=== PATIENT | male | born 1975 | race Caucasian/White ===

== ENCOUNTER → 2017-08-25 | Outpatient (CLI) | payer OTHER ==
[2017-08-25 12:14] VITALS: RESP 20; TEMP 98.4
--- NOTE | 2017-08-25 12:51 | P.CONS ---
History of Present Illness - Reason for Consult Consult date: 08/25/17 - History of Present Illness This 42 years old male with a chronic history of severe low back pain started May 2016 after accident, and he started feeling severe low back pain with radiation to the right lower extremity associated with numbness and tingling sensation, he had MRI of the lumbar spine and it showed L4 5 disc protrusion and foraminal stenosis , and L5-S1 facet hypertrophy, and had lumbar discectomy surgery done in february 2017 , for the surgery he continued to have severe low back pain with numbness and tingling in the right lower extremity, intensity of the pain fluctuates between 3/10 with complete trace increased to 8/10 with any activity, denies any motor or sensory deficit he denies any fever or less with aneurysmal change in bowel movement or urination, he had done physical therapy without any benefit Past Medical History Past Medical History: Hypertension History of Any Multi-Drug Resistant Organisms: None Reported Past Surgical History: Orthopedic Surgery Additional Past Surgical History / Comment(s): surg on bulging disc L4L5 Past Anesthesia/Blood Transfusion Reactions: No Reported Reaction Smoking Status: Current every day smoker Past Alcohol Use History: Occasional Past Drug Use History: None Reported Medications and Allergies Allergies Allergy/AdvReac Type Severity Reaction Status Date / Time No Known Allergies Allergy Verified 08/25/17 11:57 Physical Exam Vitals: Vital Signs Temp Resp Pulse Ox 08/25/17 11:59 98.4 F 20 98 Social history : smoker , NO ETOH , NO Illegal drugs use Review of Systems : 1- Constitutional : no chills , no fever , no night sweats , 2- Ears : no ear discharge , no change in hearing 3-Nose, Mouth ,Throat ; no bleeding gums, no sore throat , no epistaxis , 4-Cardiovascular : Denies chest pain, , no orthopnea , no palpitation 5-Respiratory : Denies cough , no dyspnea , no hemoptysis 6-Gastrointestinal :, no change in bowel habits , no coffee- ground emesis . 7-Genitourinary : No hematuria , no discharge , no incontinence, 8-Musculoskeletal : No gait dysfunction , report low back pain , 9- Neurological : no ataxia , no tremor , no sezure , 10-Psychatric , no suicidal ideation no hallucination 11- Endocrine : no cold intolerence , no polyuria , no polydypsia , 12-Hematologic : no easy bleeding , no easy brusing , 13-Allergic / immunology : no angioedema , no wheezing ,no allergic rhinitis 14-Integumentary : no brttle nails , no change hair / nails , no foot/leg ulcers . Physical Examinations : 1-Constitutional : Cooperative , not in acute distress . 2-HEENT : nech ; supple , no Lymphadenopathy , no Thyromegaly , :eyes , no icterus, no photophobia . ENT : , normal oropharynx , no Thrush 3- Respiratory : Chest clear to auscultations Bilaterally , no wheezing . 4- Cardiovascular : regular rate and rhythem , S1 , S2 , no S3 , no S4. 5- Gastrointestinal: abdomen soft no tenderness , no organomegally . 6- Genitourinary : Defferred . 7-Integumentary : No cellulitis , no ulcers , normal skin turgor , no cyanotic . 8- neurologic : Cranial nerve II to XII intact , no focal neurological deffecit 9-psychatric : alert , oriented X 3 , appropriate affect , intact judgment and insight . 10-Lymphatic : no Lymphadenopathy. 11- musculoskeltal: Lumber spine moter stegnth lower extremities ,thigh and legs 5/5 Right side , 5/5 Left side deep tendon reflexes : normal Knee Jerk , normal ankle Jerk lumber facet Loading Test negative Range of motion of the lumbar spine Flexion 30 degrees, extension 10 degrees strait leg raising test negative Fabere test negative Results Comments: MRI of the lumbar spine done in October 2016= L4 5 lumbar disc protrusion and L5 -S1 lumbar facet hypertrophy Assessment and Plan Plan: Assessment and plan= Lumbar radiculopathy , failed back surgery syndrome and lumbar area Medication managements= patient will be given prescription refills for 1-patient should continue her Mobic 2-neurontin 300 tid 3-Palm 7.5/325 prescription's from the primary care Interventional pain management= patient could benefit from caudal epidural steroid injection with lysis of epidural adhesions be done under fluoroscopy guidance procedure risks and benefits and alternatives discussed with the patient and he agreed to the procedure , Time with Patient: Greater than 30
== END | disposition home or self-care (01) ==
LOC: PNWHC3 11:38
PROVIDERS: ATTEND Specialist
DX: I10 Essential (primary) hypertension (principal); F17.200 Nicotine dependence, unspecified, uncomplicated; M54.16 Radiculopathy, lumbar region
CPT/HCPCS: 99201

== ENCOUNTER 2017-11-08 08:54 | Day surgery (SDC) | payer OTHER ==
[2017-11-04 15:39] VITALS: BMI 37.3
[~2017-11-08 08:54] MED LIST: LACTATED RINGERS 1,000 ML IV ONE
[2017-11-08] MEDS ORDERED: LACTATED RINGERS 1,000 ML IV ONE (09:31)
[2017-11-08 09:35] VITALS: RESP 18; TEMP 97.5
[2017-11-08] MEDS ORDERED: LIDOCAINE 1% 20 ML VIAL (10MG/ML) FOR IV START INTRADERMA ONE (09:43)
--- NOTE | 2017-11-08 10:28 | P.PCN ---
Date of Procedure: 11/08/17 Procedure(s) Performed: PREOP DIAGNOSIS: 1- Lumbar postlaminectomy syndrome POSTOP DIAGNOSIS:1- Lumbar postlaminectomy syndrome PROCEDURE: Caudal epidural steroid injection with epidurolysis and epidurogram under fluoroscopic guidance ANESTHESIA: Local with 1% lidocaine 3 ml ; IV sedation with Versed 2 mg and fentanyl 200 g EBL: Minimal. PROCEDURE INDICATION: The patient with post-laminectomy syndrome with low back pain and radiculopathy radiating down in both legs, here for a caudal epidural steroid injection with epidurolysis. PROCEDURE DESCRIPTION: The patient was seen and identified in the preoperative area. Risks, benefits, complications, and alternatives were discussed with the patient. The patient agreed to proceed with the procedure and signed the consent. IV was started, and vital signs were stable. Patient was taken to the OR and time out was completed. The patient was placed in the prone position on procedure table and a pillow was placed under the abdomen to reduce lumbar lordosis. The lumbosacral area was prepped and draped in the usual sterile fashion. Vital signs were closely monitored during the procedure. lateral view and the anterior-posterior plates of the sacrum were identified with infiltration of the area overlying the sacral hiatus with 1% lidocaine .A 17 gauge RK epidural needle was used to advance through the sacral hiatus into the caudal epidural space. Omnipaque 180 dye. 2cc was injected and the position of the needle was verified to be in the midline. A Racz catheter was introduced into the epidural space and was advanced towards the L5-S1 interspace under direct fluoroscopic guidance. Multiple passes were made with the catheter for lysis of epidural adhesions.then dexamethasone 20 mg with 3ml of preservative free Lidocaine 1% and 5 ml of preservative free normal saline was injected slowly. Additional spread was seen to L4 under fluoroscopy. The needle and the catheter were withdrawn intact. EPIDUROGRAM: Omnipaque 180 mg dye 2 ml was injected with spread of the dye into the caudal epidural space and with spread cutoff at L5 prior to epidurolysis. Post epidurolysis dye 2 ml was injected and spread was seen to L3- 4.There was further spread of the solution together with the dye above the L3 COMPLICATIONS: None. DISPOSITION / PLANS: The patient was placed in a supine position and transferred to the recovery area in a stable condition for observation and was discharged from the recovery room after meeting discharge criteria. Home discharge instructions given to the patient by the staff. The patient was reexamined prior to discharge. The patient will schedule a follow up in the clinic in 2-4 weeks.
[2017-11-08] MEDS ORDERED: IV FLUID CONTINUATION 550 ML IV ONE (10:38)
[2017-11-08 11:23] VITALS: BP 126/89; PULSE 68
--- NOTE | 2017-11-08 12:00 | FL ---
Fluoroscopy HISTORY: Pain 6 seconds fluoroscopy time supplied to the referring clinician. 3 intraoperative C-arm images docume nt the procedure. See dictated report from anesthesia.
== END 2017-11-08 11:24 | disposition home or self-care (01) ==
LOC: ORPAIN 08:54
PROVIDERS: ATTEND Specialist
DX: G96.12 Meningeal adhesions (cerebral) (spinal) (principal); M96.1 Postlaminectomy syndrome, not elsewhere classified; M54.10 Radiculopathy, site unspecified; I10 Essential (primary) hypertension
CPT/HCPCS: 62264; J2250; J1100; Q9965; J3010; C1894; 99152

== ENCOUNTER 2017-12-07 08:31 | Day surgery (SDC) | payer OTHER ==
[2017-12-02 10:49] VITALS: BMI 38.0
[2017-12-07 08:59] VITALS: TEMP 97.7
[2017-12-07] MEDS ORDERED: LIDOCAINE 1% 20 ML VIAL (10MG/ML) FOR IV START INTRADERMA ONE (09:08)
--- NOTE | 2017-12-07 10:23 | P.PCN ---
Date of Procedure: 12/07/17 Procedure(s) Performed: PREOP DIAGNOSIS: 1- Lumbar postlaminectomy syndrome POSTOP DIAGNOSIS:1- Lumbar postlaminectomy syndrome PROCEDURE: Caudal epidural steroid injection with epidurolysis and epidurogram under fluoroscopic guidance ANESTHESIA: Local with 1% lidocaine 3 ml , and moderate sedation, with Versed 4 mg and fentanyl 100 g EBL: Minimal. PROCEDURE INDICATION: The patient with post-laminectomy syndrome with low back pain and radiculopathy radiating down in both legs, here for a caudal epidural steroid injection with epidurolysis. PROCEDURE DESCRIPTION: The patient was seen and identified in the preoperative area. Risks, benefits, complications, and alternatives were discussed with the patient. The patient agreed to proceed with the procedure and signed the consent. IV was started, and vital signs were stable. Patient was taken to the OR and time out was completed. The patient was placed in the prone position on procedure table and a pillow was placed under the abdomen to reduce lumbar lordosis. The lumbosacral area was prepped and draped in the usual sterile fashion. Vital signs were closely monitored during the procedure. lateral view and the anterior-posterior plates of the sacrum were identified with infiltration of the area overlying the sacral hiatus with 1% lidocaine .A 17 gauge RK epidural needle was used to advance through the sacral hiatus into the caudal epidural space. Omnipaque 180 dye. 2cc was injected and the position of the needle was verified to be in the midline. A Racz catheter was introduced into the epidural space and was advanced towards the L5-S1 interspace under direct fluoroscopic guidance. Multiple passes were made with the catheter for lysis of epidural adhesions. Kenalog 80 mg with 3ml of preservative free Lidocaine 1% and 5 ml of preservative free normal saline was injected slowly. Additional spread was seen to L4 under fluoroscopy. The needle and the catheter were withdrawn intact. EPIDUROGRAM: Omnipaque 180 mg dye 2 ml was injected with spread of the dye into the caudal epidural space and with spread cutoff at L5 prior to epidurolysis. Post epidurolysis dye 2 ml was injected and spread was seen to L3- 4.There was further spread of the solution together with the dye above the L3 COMPLICATIONS: None. DISPOSITION / PLANS: The patient was placed in a supine position and transferred to the recovery area in a stable condition for observation and was discharged from the recovery room after meeting discharge criteria. Home discharge instructions given to the patient by the staff. The patient was reexamined prior to discharge. The patient will schedule a follow up in the clinic in 2-4 weeks.
[2017-12-07] MEDS ORDERED: IV FLUID CONTINUATION 1,000 ML IV ONE ×2 (10:30)
[2017-12-07 10:47] VITALS: BP 142/91; PULSE 67; RESP 20
--- NOTE | 2017-12-07 10:47 | FL ---
Fluoroscopy HISTORY: Pain 8 seconds fluoroscopy time supplied to the referring clinician. 3 intraoperative C-arm images docume nt the procedure. See dictated report from anesthesia.
== END 2017-12-07 10:56 | disposition home or self-care (01) ==
LOC: ORPAIN 08:31
PROVIDERS: ATTEND Specialist
DX: M96.1 Postlaminectomy syndrome, not elsewhere classified (principal); G96.12 Meningeal adhesions (cerebral) (spinal)
CPT/HCPCS: 62264; J2250; J1100; Q9965; J3010; C1894; 99152

== ENCOUNTER → 2018-03-02 | Outpatient (CLI) | payer OTHER ==
[2018-03-02 13:24] VITALS: BP 133/91; PULSE 73; RESP 18
--- NOTE | 2018-03-02 13:39 | P.PN ---
Progress Note - Text Progress Note Date: 03/02/18 Patient returns for followup for chronic back pain with radiation to legs. Patient previously underwent caudal FARAZ x 3, which gave him relief for several months. Patient continues on [facility] medications for pain from PCP with good relief. Patient denies adverse drug effects from medications. Today, pt denies new-onset weakness, bowel/bladder incontinence, or any other signs or symptoms of cauda equina syndrome. There are no signs of acute intoxication, and no indications of medication diversion or overuse. In addition to above, 13-point review of systems is also negative for chest pain , shortness of breath, changes in vision, changes in hearing, new onset weakness , abdominal pain, diarrhea, extreme fatigue, malaise, fever, skin changes, homicidal or suicidal ideation, or bowel or bladder incontinence. Vital Signs: Reviewed in EMR Gen: WDWN, AAOx3, NAD HEENT: NCAT, EOMI, hearing grossly normal Pulm: resp unlabored Abd: soft, NT, ND Neck: supple, trachea midline ROM in flexion lumbar spine: reduced ROM in extension lumbar spine: reduced Lumbar paravertebral tenderness: + Facet loading: + L > R SI joint tenderness: + L > R Henok's test: neg Straight leg raise: +RLE at 10 degrees Imaging: Reviewed in EMR Assessment: 1. lumbar PLPS 2. SIJ dysfunction 3. chronic pain syndrome Plan: 1. Explanation: Opioid and psychological risk scores were reviewed. Diagnoses , prognoses, and multiple treatment options including but not limited to physical therapy, interventional therapies, adjuvant medical therapies, narcotic medication therapies, and surgery were discussed with the patient and all questions were answered to the patient's satisfaction. 2. Opioid agreement: no opioids prescribed today 3. Counseling: The patient was counseled extensively on SMOKING CESSATION, BODY MASS INDEX, EXERCISE. Specifically, the patient was instructed regarding the importance of smoking cessation, weight control, and exercise in the context of both chronic pain and overall health. 4. Procedures: caudal FARAZ with lysis of adhesions 5. Consultations: None 6. Investigations: UDS not done today, MAPS queried and appropriate 7. Medications: none prescribed 8. Morphine equivalents per day prescribed: zero 9. Disposition: f/u for procedure as scheduled. Patient also given SCS DVD ( [employer]). PQRS measures: 1-Patient's medications are documented in the chart. 2-Tobacco use is negative 3-Patient has not had a pneumococcal vaccine. 4-Advanced care planning discussed, patient unable to give. 5-Opioid contract NOT signed with the patient. 6-Pain positive, follow-up visit or procedure scheduled 7-Patient's blood pressure measured and documented, and patient will follow up with the primary care due to hypertension. 8-Patient's weight was measured, and body mass index ABOVE the normal limits, and counseling was done. Patient instructed to follow up with PCP. 9-Patient WAS NOT identified as an unhealthy alcohol user.
== END | disposition home or self-care (01) ==
LOC: PNWHC3 12:35
PROVIDERS: ATTEND Anesthesiology
DX: G89.4 Chronic pain syndrome (principal); G97.1 Other reaction to spinal and lumbar puncture; M53.88 Other specified dorsopathies, sacral and sacrococcygeal region; M54.9 Dorsalgia, unspecified; Z79.891 Long term (current) use of opiate analgesic
CPT/HCPCS: 99211

== ENCOUNTER 2018-03-09 06:18 | Day surgery (SDC) | payer OTHER ==
[2018-03-03 15:04] VITALS: BMI 38.0
[2018-03-09 06:39] VITALS: RESP 16; TEMP 98.2
[2018-03-09] MEDS ORDERED: LIDOCAINE 1% 20 ML VIAL (10MG/ML) FOR IV START INTRADERMA ONE (06:50)
[2018-03-09] MEDS ORDERED: LACTATED RINGERS 1,000 ML IV ONE (06:50)
--- NOTE | 2018-03-09 07:27 | P.PCN ---
Date of Procedure: 03/09/18 Postoperative Diagnosis: Procedure= caudal epidural steroid injection with lysis of epidural adhesions under fluoroscopy guidance. Preoperative diagnosis=1-failed back surgery syndrome lumbar area. 2 lumbar degenerative disc disease 3-lumbar radiculopathy Postoperative diagnosis= same Anesthesia= IV sedation with Versed and fentanyl , and local infiltration with lidocaine 1% 3 mL for skin and subcutaneous tissue infiltrations. Fluoroscopy time= 3 seconds Description of the procedure= procedure risk and benefits discussed with the patient, including but not limited to risk of infection and bleeding and ALLERGIC reaction to the medication and no complete pain relief discussed with the patient and he, she agreed with preceding. patient taken to the operating room, placed in prone position standard monitors applied, then after induction of anesthesia the lumbar and the caudal Area prepped with chlorhexidine X3 , then the under fluoroscopy guidance, local infiltration of the skin and subcu tissuel at the caudal hiatus area, then a 17-gauge Touhy needle advanced slowly under fluoroscopy and passed through the cauda hiatus and advanced to the epidural space, there was positive loss of resistance to normal saline, no heme, no paresthesia, no cerebrospinal fluid, then after negative aspiration Omnipaque 180 mg per mL and 3 mL injected that showed possible spread in the epidural space, no intrathecal spread, then 22 roney Racz catheter advanced slowly through the needle up to L 3-4 interlaminar space , and I was able to break the scar tissue by advancing and withdrawing the catheter multiple times ,and after all this done, mixture of lidocaine 1% 2 mL +10 mL of preservative-free normal saline +80 mg of depomedrol mixed together , and injected epidurally after negative aspiration patient tolerated the procedure well without any complication and patient will follow up with up in the pain clinic within 3 weeks. I gave the patient a prescription for physical therapy. He should complete this prior to scheduling his appointment for follow-up in the clinic. Surgeon: Messi Varghese
[2018-03-09] MEDS ORDERED: LACTATED RINGERS 1,000 ML IV SCH (07:30)
[2018-03-09] MEDS ORDERED: IV FLUID CONTINUATION 1,000 ML IV ONE ×2 (07:38)
[2018-03-09 08:01] VITALS: BP 140/80; PULSE 76
--- NOTE | 2018-03-09 08:26 | FL ---
Fluoroscopy HISTORY: Pain 3 seconds fluoroscopy time supplied to the referring clinician. 2 intraoperative C-arm images docume nt the procedure. See dictated report from anesthesia.
== END 2018-03-09 08:10 | disposition home or self-care (01) ==
LOC: ORPAIN 06:18
PROVIDERS: ATTEND Pain Medicine Pain Medicine
DX: M96.1 Postlaminectomy syndrome, not elsewhere classified (principal); M51.16 Intervertebral disc disorders with radiculopathy, lumbar region; I10 Essential (primary) hypertension
CPT/HCPCS: 62264; J2250; J1030; J3010; C1894; 99152

== ENCOUNTER → 2018-08-18 | Outpatient (CLI) | payer OTHER ==
--- NOTE | 2018-08-18 16:40 | XR ---
EXAMINATION TYPE: XR cervical spine comp DATE OF EXAM: 08/18/2018 COMPARISON: NONE HISTORY: Neck pain TECHNIQUE: 6 views FINDINGS: Cervical vertebra have mild straightening. There is minor spurring of the endplates anterio rly at C5-6. Posterior elements are intact. Neural foramina are fairly well-maintained. Atlantoaxial facet joint is normal. There are no cervical ribs. IMPRESSION: Mild spondylosis at C5-6. Otherwise negative exam.
== END | disposition home or self-care (01) ==
LOC: RADXRYALE 16:22
PROVIDERS: ATTEND Physician Assistant Medical
DX: M47.812 Spondylosis without myelopathy or radiculopathy, cervical region (principal)
CPT/HCPCS: 72050

== ENCOUNTER → 2020-08-08 | Outpatient (CLI) | payer BC | END | disposition home or self-care (01) | LOC: RADMRIMAIN 14:08 | PROVIDERS: ATTEND Orthopaedic Surgery | DX: Z53.9 Procedure and treatment not carried out, unspecified reason (principal) ==

== ENCOUNTER → 2020-09-04 | Outpatient (CLI) | payer BC ==
--- NOTE | 2020-09-04 15:54 | XR ---
EXAMINATION TYPE: XR chest 2V DATE OF EXAM: 09/04/2020 COMPARISON: NONE HISTORY: Preop TECHNIQUE: Frontal and lateral views of the chest are obtained. FINDINGS: There is no focal air space opacity, pleural effusion, or pneumothorax seen. The cardiac silhouette size is within normal limits. There is increased AP diameter of the chest. There is a spin al curvature. The osseous structures are intact. IMPRESSION: No acute cardiopulmonary process.
== END | disposition home or self-care (01) ==
LOC: RADXRYALE 10:14
PROVIDERS: ATTEND Physician Assistant Medical
DX: Z01.818 Encounter for other preprocedural examination (principal)
CPT/HCPCS: 71046

== ENCOUNTER → 2020-09-23 | Outpatient (CLI) | payer BC | END | disposition home or self-care (01) | LOC: LABPAT 10:07 | PROVIDERS: ATTEND Orthopaedic Surgery | DX: Z01.818 Encounter for other preprocedural examination (principal); M48.062 Spinal stenosis, lumbar region with neurogenic claudication | CPT/HCPCS: 87070 ==

== ENCOUNTER 2020-10-01 06:04 | Inpatient (IN) | payer BC ==
[2020-09-30 10:41] VITALS: BMI 42.3
[~2020-10-01 06:04] MED LIST changes: +ACETAMINOPHEN TAB 500 MG TAB PO PRN; +GABAPENTIN 300 MG CAP PO PRN; +HYDROmorphone 0.5 MG/0.5 ML SYRINGE IVP PRN; -LACTATED RINGERS 1,000 ML IV ONE; +LIDOCAINE 1% (10MG/ML) FOR IV START INTRADERMA PRN; +MIDAZOLAM 2 MG/2 ML VIAL IV PRN; +TRANEXAMIC ACID 1,000 MG in SODIUM CHLORIDE 0.9% 100 ML IVPB PRN; +ceFAZolin 3 GM in SODIUM CHLORIDE 0.9% 100 ML IVPB PRN
--- NOTE | 2020-10-01 06:41 | P.HPOR ---
History of Present Illness H&P Date: 10/01/20 Chief Complaint: Low back pain, LE weakness This 45 year old male presents with 4 years of low back pain. He notes pain that radiates into his right leg. Patient notes occasional tingling sensation into his feet along with into his left arm. He notes increased pain with prolonged weight bearing and sitting. He had a previous laminectomy and decompression ( laser surgery) 2017 In [place] without relief. he is very disappointed with this surgery and the amount of money spent on this surgery without any relief. He takes Bellevue 7.5/325mg four times daily along with Gabapentin and Meloxicam. he denies any perineal numbness or tingling. He denies any bowel or bladder incontinence. He denies weakness in his right lower extremity although he does state fairly intense radicular type pain that travels down the back and outside of his leg into his calf and foot. He has had recent injections into his back which have failed to give him any relief. He did state that one of the injections did work however he is unsure of where that injection was placed in relation to the other injections that he had. He states the physical therapy does not help his pain. And he has done several visits with this. He states that the meloxicam he takes seems to take the edge off but it does not help him and that is why he takes Bellevue 75/325 mg. Review of Systems 14 points review of systems completed and as stated in HPI, all other systems reviewed are negative. Past Medical History Past Medical History: Hypertension Additional Past Medical History / Comment(s): HERNIATED DISCS WITH BACK PAIN RADIATING DOWN RIGHT LEG. History of Any Multi-Drug Resistant Organisms: None Reported Past Surgical History: Back Surgery, Orthopedic Surgery Additional Past Surgical History / Comment(s): PAIN CLINIC PROCEDURES, JEMMA ROTATOR CUFF REPAIR Past Anesthesia/Blood Transfusion Reactions: No Reported Reaction Past Psychological History: No Psychological Hx Reported Past Alcohol Use History: Occasional Additional Past Alcohol Use History / Comment(s): SMOKES 1 PPD, SMOKING SINCE 13 YEARS OLD Past Drug Use History: None Reported - Past Family History Mother Family Medical History: No Reported History Medications and Allergies Home Medications Medication Instructions Recorded Confirmed Type Hydrocodone/Acetaminophen [[place]vue 1 tab PO BID 08/25/17 03/03/18 History 7.5-325] Propranolol/Hydrochlorothiazid 1 tab PO DAILY 08/25/17 03/03/18 History [Inderide 40-25 mg Tab] Citalopram Hydrobromide 40 mg PO DAILY 12/02/17 03/03/18 History [Citalopram HBr] Meloxicam 15 mg PO DAILY 12/07/17 03/03/18 History Sildenafil Citrate 1 tab PO DAILY 03/02/18 03/03/18 History amLODIPine BES/OLMESARTAN MED 1 tab PO DAILY 03/02/18 03/03/18 History [amLODIPine BES/OLMESARTAN MED 5-20 mg] Allergies Allergy/AdvReac Type Severity Reaction Status Date / Time No Known Allergies Allergy Verified 03/09/18 06:31 Physical Examination Osteopathic Statement: *. No significant issues noted on an osteopathic structural exam other than those noted in the History and Physical/Consult. General: Awake, alert, appropriate for age, in no acute distress. HEENT: No unusual neck masses around region of lateral neck triangle, thyroid, supraclavicular groove Heart: Regular rate and rhythm, normal S1, S2 and no murmur/gallop. Lungs: Clear to auscultation bilaterally with no use of accessory muscles. Extremities: Skin warm and dry without acute lesions, coloration, temperature, skin intact, no tenderness or erythema Integument: Hairy patches: Absent Dorsal skin dimples: Absent Cafe au lait spots: Absent Palpation: Please see Pain drawing on Intake sheet for further detail. Midline spinal tenderness: yes lumbar E6 Paralumbar tenderness: yes bilateral E6 Parathoracic tenderness: yes bilateral E6 Buttocks tenderness: yes bilateral E6 Special findings: none POSTURAL and MUSCULO-SKELETAL EVALUATION: Coronal Balance: Neutral Recumbent testing: Patient is able to lay flat on back Sagittal Balance: Neutral Shoulder Profile: level Pelvic Girdle: level Neck ROM: Unrestricted Lumbar ROM: pain with range of motion Shoulder ROM: Symmetric in abduction, ER/IR Hip ROM: Symmetric in abduction, adduction, ER/IR Knee ROM: Symmetric and intact in Flexion / extension Hands: normal Feet: normal VASCULAR STATUS : LEFT RIGHT Wrist Pulses intact intact Pedal Pulses (Dors. pedis & post.tibialis) intact intact Color normal normal Edema Absent Absent NEUROLOGIC EXAMINATION: Mental Status: Awake and alert, fully oriented, with normal attention, concentration and memory, and fluent, appropriate speech. Cranial Nerves: I: Olfactory not tested. II: Visual acuity normal, no visual field deficit noted with confrontation. III,IV: Normal pupillary reflexes & intact extraocular movements without nystagmus. V,: Intact symmetrical facial sensation. VII: Intact symmetrical facial motor movement VIII: Hearing intact. IX,X: swallow, & normal voice. XI: Sternocleidomastoid, trapezius function intact. XII: Tongue midline with normal movements. L'hermitte's Sign: Negative / absent Spurling'Sign: Absent bilaterally. Cubital percussion test: Absent bilaterally. Karolina-Tinel sign - Carpal region: Absent bilaterally. Straight Leg Raising: positive right lower extremity Crossed straight leg raise: negative O8 MOTOR EXAM (0-5/5, N/T) STRENGTH RIGHT LEFT Shoulder Abd (not part of the DONNY score) 5 5 Elbow Flexors 5 5 Elbow Extensor 5 5 Wrist Dorsiflexors 5 5 Finger Abductor 5 5 Traffic Maintenance Officer 5 5 Hip Flexor (Not part of DONNY Motor score) 5 5 Knee Flexor 5 5 Knee Extensor 5 5 Ankle dorsiflexor 4+ 4+ Ankle plantarflexion 4 5 Extensor hallucis 5 5 REFLEXES(0-4/2, NT) RIGHT LEFT Upper Extremities 2 2 Lower Extremities 2 2 Pathological Reflexes RIGHT LEFT Zavala's Absent Absent Clonus Absent Absent # Indicates mechanical impairment Muscle appearance: normal symmetrical Rectal Tone: not tested Sensory system (0-4, N/T) Test type RU BARI RL LL Joint-Position 2 2 2 2 Vibration 2 2 2 2 Pain & LT sense 2 2 2 2 Dermatomal Deficit: none none none none Gait and Functional Evaluation: Ambulatory aids: Independent Romberg's test: Intact bilaterally Toe heel walk / heel-toe walk intact while maintaining satisfactory balance? yes Squatting/straightening w/o assistance to a min of 60 degree knee flexion? yes Single leg stance: intact Hand and finger dexterity intact bilaterally? yes Disdiadochokinesis examination negative bilaterally? yes Results XRAY: AP lateral flexion-extension views of the lumbar spine are obtained and reviewed along with an AP pelvis in the office today. This demonstrates a maintained coronal and sagittal alignment with 49 of lumbar lordosis and 50 of pelvic incidence approximately. There are no fractures or dislocations noted. the patient does appear to have spondylosis throughout the lumbar spine that is worse at L34 and L5-S1. He does have facet arthropathy of L5-S1. AP pelvis demonstrates level pelvis congruent femoral acetabular joints and no acute fracture dislocation noted. MRI of the lumbar spine from 08/14/2020 reveals: Cointinued disc herniation with moderative to severe central stenosis of L4-5 and L5-S1 with thecal sac encroachment, b/l facet hypertrophy contributing to stenosis as well as disc degeneration. There are no fractures or dislocations noted. There are post surgical changes with R sided laminotomy of L4-5 from previous surgery done at [facility]. Assessment and Plan Assessment: 1. L4-5 , L5-S1 disc herniation with stenosis 2. S/P Laser spine decompression Plan: Buzz Mukherjee is a 45 yo male with history of laser spine surgery presenting for evaluation of LE weakness, severe radiculopathy which has been going on since his previous surgery and is now getting worse preventing him from doing daily activities and working. It was my pleasure to have seen and examined Buzz Mukherjee. In our visit today we have had a chance to go over subjective complaints, physical examination findings and treatments including the natural course history without intervention and various interventional options. His imaging d emonstrates L4-5 and L5-S1 HNP with stenosis. On physical exam, Buzz Mukherjee demonstrates Tensioning signs, weakness in his LE and severe radicuopathic pain. I explained to the patient that as her condition progresses it will cause further neurological deficits and eventual paralysis. Based on the patients imaging, physical exam, and the rapid progression and disabling nature of her symptoms, at this time I recommend surgery in the form or a: L4-S1 decompressive laminectomy. I discussed the risk and benefits of this procedure at length with Buzz Mukherjee. The patient and agreed to considered pursuing the procedure abovementioned. . Prior to surgery, she should follow up with her PCP (Cardio, ID, IM etc) for clearance. Questions were invited and answered, and the patient wishes to proceed as outlined below. Currently, I am recommendin. Lumbar 4 to Sacral 1 bilateral laminectomy and decompression 2. Follow up with PCP for surgical clearance 3. Review of surgical risks and benefits as well as an educational packet on the proposed surgical procedure. Risks: All surgical procedures come with inherent risks, including those related to positioning, anesthesia, intraoperative findings, and postoperative complications. It is important to understand that surgery does not come with any guarantee of a successful outcome as complications and adverse events are always possible. The patient was given a handout in office today discussing the surgical procedure and risks associated with the intervention, both of which were discussed with the patient. These risks include but are not limited to the following: ? Experiencing same, different or even worse symptoms in back, neck, arms, or legs compared to before surgery. ? Requiring further surgery or other forms of treatment presently or at some time in the future at same or other levels of the intended spine surgery. ? On an extreme but fortunately relatively rare basis severe complication such as blindness, stroke, heart attack, temporary and/or permanent nerve injury, paralysis, coma, or may occur, sometimes without known exp lanation. ? Surgical complications may include but are not limited to risk of infection, fluid accumulation in the surgical dissection site, including a seroma or hematoma, that requires additional surgery, wound drainage, bleeding, new numbness or weakness, vision changes/loss, spinal fluid leakage, non-healing and/or infected incision, headaches, difficulty or inability to swallow, hoarse ness, hemopneumothorax, pneumothorax, impotence, retrograde ejaculation, vaginal dryness; injury to nerves, spinal cord, blood vessels, lymphatics or other vital organs (i.e., bowel injury, injury to the great vessels); heterotopic bone formation; complications related to the hardware such as screws, rods, cages including misplaced hardware, device failure, instrumentation at the wrong spine level, hardware fracture/breakage, or hardware loosening; vertebral failure of the spinal column above or below the newly placed hardware; retained surgical instrumentations or devices and the need for further surgery. ? Medical risks of the planned spine surgery include but are not limited to generalized Infections to the whole body or local areas outside of the surgical site (sepsis), heart attack, bleeding, anaphylaxis, meningitis, seizure, epilepsy, hearing loss, burn pacheco, laceration of the head or other areas of the body, bruising, hypersensitivity of the skin, bladder over distension; allergic reaction; shoulder injury related to positioning; fat, blood and air clots to other areas of the body like heart, lungs, brain; failure of internal organs such as lungs, kidneys, liver and excessive bleeding. If blood transfusions are necessary, note that transfusions may cause intolerance reactions such as anaphylaxis or other complex reactions. Despite best efforts, the results of spine surgery might not heal in terms of bone, soft tissues such as skin, fascia, ligaments, and joints. Additionally, in order to achieve best possible results, spine surgery may be carried out b eyond the initially planned levels and involve decompression, fusion including insertion of hardware at levels other than the original intended area of surgical interest change some portions of the procedure in order to ensure the best possible outcomes. With spine surgery and spinal fusion, there are different off label uses of instrumentation (devices, implants and hardware) as well as biological substances (bone morphogenic proteins, demineralized bone matrix) as well as using extra bone from allograft sources (i.e. cadaver bone) or autograft (iliac crest bone, ribs, or the spine itself). The patient has been given information about these practices and their inherent risks and benefits. [facility] is an educational center that serves as a training facility for neurosurgical and orthopedic spine residents and fellows. Residents are physicians who are completing their surgical intensive training following medical school. They assist in the operating room with direct supervision of the attending surgeons. [place] are surgeons who have completed their training and eligible for board certification. They have opted for an elective year of more specialized training in their field. They assist in the operating room under the supervision of the attending surgeons. Physician assistants are medically trained surgical providers who function in the outpatient, inpatient, and operating room setting under the direct supervision of the attending surgeon. [facility] has multiple operating rooms with single and overlapping rooms running daily. They currently function under the required guidelines as produced by the [facility] Finance Committee with regards to the overlapping rooms and will continue to comply with changes to this policy as they occur. The requirements include and are complied with as follows: (1) the critical portions of the overlapping rooms will not occur at the same time, (2) the attending physician will be physically present during the critical portions of the procedure and immediately available during the entire case, and (3) a back-up attending is designated should the primary attending not be immediately available. The patient has had a chance to review all the listed information, has been given print outs detailing this information, and has had all his/her questions answered to their satisfaction. It was my pleasure to have seen and examined Buzz Mukherjee. In our visit today we have had a chance to go over my understanding of our patient's current condition, the natural course history without intervention and various interventional options. Questions were invited and answered, and the patient wishes to proceed as outlined above. I have seen and examined the patient for 25 minutes and we have spent more than 50% of the time in repeat and detailed counseling about the patient's condition, its natural course history with out and as much as can be predicted with surgery and re-review of various surgical treatment options. In conclusion, Buzz Mukherjee requested we proceed with the above suggested surgery and are willing to accept risks and limitations of the suggested surgery as nature of the disease process and our best attempts at treatment for the condition. Thank you again for allowing us to be part of your patient's care. Please don't hesitate to contact me if you have any further questions. Signed and authenticated by: Abdirizak French [facility] [address] [place] [address]
[2020-10-01] MEDS: LACTATED RINGERS 1,000 ML IV SCH ×2 (06:46→07:30)
[2020-10-01] MEDS: ONDANSETRON 4 MG/2 ML VIAL IVP ONE ×2 (06:53→15:49)
[2020-10-01] MEDS: DEXAMETHASONE SOD PHOSPHATE 4 MG/ML 1 ML VIAL IV ONE ×2 (07:06→15:49)
[2020-10-01] MEDS ORDERED: HYDROmorphone (PF) 1 MG/ML ONE (07:25)
[2020-10-01] MEDS ORDERED: SUCCINYLCHOLINE CHLORIDE VIAL 200 MG/10 ML VIAL IV ONE (07:25)
[2020-10-01] MEDS ORDERED: fentaNYL (PF) 50 MCG/ML 2 ML AMP ONE (07:25)
[2020-10-01] MEDS ORDERED: PROPOFOL 10 MG/ML 20 ML VIAL IV ONE (07:25)
[2020-10-01] MEDS ORDERED: SODIUM CHLORIDE 0.9% 100 ML BAG ONE (07:25)
[2020-10-01] MEDS ORDERED: PHENYLEPHRINE 10 MG/ML VIAL ONE (07:25)
[2020-10-01] MEDS ORDERED: TRANEXAMIC ACID 1,000 MG/10 ML VIAL ONE (07:25)
[2020-10-01] MEDS ORDERED: ROCURONIUM 10 MG/ML (10 ML VIAL) IV ONE (07:25)
[2020-10-01] MEDS ORDERED: ePHEDrine SULFATE/0.9% NACL/PF 50 MG/5 ML SYRINGE IV ONE (07:25)
[2020-10-01] MEDS ORDERED: NEOSTIGMINE 1 MG/ML 10 ML VIAL ONE (07:25)
[2020-10-01] MEDS ORDERED: NALOXONE 0.4 MG/ML 1 ML VIAL ONE (07:25)
[2020-10-01] MEDS ORDERED: MIDAZOLAM 2 MG/2 ML VIAL ONE (07:25)
[2020-10-01] MEDS ORDERED: GLYCOPYRROLATE 0.2 MG/ML 2 ML VIAL ONE (07:25)
[2020-10-01] MEDS ORDERED: GELATIN SPONGE,ABSORB (LARGE) 1 EACH SPONGE TOPICAL ONE (07:31)
[2020-10-01] MEDS ORDERED: THROMBIN (BOVINE) 5,000 UNIT VIAL TOPICAL ONE (07:31)
[2020-10-01] MEDS ORDERED: BUPIVACAINE (PF) 0.25% 30 ML VIAL SQ ONE (07:31)
[2020-10-01] MEDS ORDERED: LACTATED RINGERS 1,000 ML IV ONE ×4 (08:42→14:00)
[2020-10-01] MEDS ORDERED: methylPREDNISolone ACETATE 80 MG/ML 1 ML VIAL MISCELLANE ONE (10:13)
[2020-10-01] MEDS ORDERED: HYDROmorphone 1 MG/ML 1 ML SYRINGE IVP PRN (11:39)
[2020-10-01] MEDS ORDERED: ONDANSETRON 4 MG/2 ML VIAL IVP PRN (11:41)
[2020-10-01] MEDS ORDERED: SENNOSIDES 8.6 MG TAB PO PRN (11:41)
[2020-10-01] MEDS ORDERED: oxyCODONE-APAP 5-325MG 1 EACH TAB PO PRN (11:41)
[2020-10-01] MEDS ORDERED: ACETAMINOPHEN TAB 500 MG TAB PO PRN (11:41)
[2020-10-01] MEDS ORDERED: CYCLOBENZAPRINE 10 MG TAB PO PRN (11:44)
[2020-10-01] MEDS ORDERED: HYDROmorphone 0.5 MG/0.5 ML SYRINGE IVP ONE ×3 (12:25→14:15)
[2020-10-01] MEDS ORDERED: diphenhydrAMINE 50 MG/ML 1 ML VIAL IVP ONE (12:30)
[2020-10-01] MEDS ORDERED: KETOROLAC 15 MG/ML 1 ML VIAL IVP ONE (12:44)
[2020-10-01] MEDS ORDERED: fentaNYL (PF) 50 MCG/ML 2 ML AMP IVP ONE ×2 (12:50→13:28)
[2020-10-01] MEDS: ceFAZolin 3 GM in SODIUM CHLORIDE 0.9% 100 ML IVPB SCH ×2 (15:21→23:21)
[2020-10-01] MEDS: GABAPENTIN 300 MG CAP PO SCH ×2 (15:59→23:19)
[2020-10-01] MEDS: NICOTINE 14MG/24HR PATCH TRANSDERM SCH (15:59)
[2020-10-01] MEDS: 0.9% NACL WITH KCL 20 MEQ/L 1,000 ML IV SCH (17:56)
[2020-10-01] MEDS: KETOROLAC 15 MG/ML 1 ML VIAL IVP SCH ×2 (17:56→23:19)
[2020-10-01] MEDS: DOCUSATE 100 MG CAP PO SCH (20:08)
--- NOTE | 2020-10-01 23:21 | P.CONS ---
History of Present Illness - Reason for Consult Consult date: 10/01/20 Medical management - Chief Complaint Status post lumbar spinal laminectomy and decompression - History of Present Illness Patient is a 45-year-old male with a known history of hypertension, herniated lumbar disc, morbid obesity BMI 40.3 who has been having low back pain for the past 4 years. Recently patient has been having pain radiating down his right leg with occasional tingling sensation. Patient did have previous history of laminectomy and decompression in 2017 in [place] without much relief. Patient has been using pain medications and gabapentin without much relief. Patient had failed conservative measures including epidural injections. Patient was currently admitted to the hospital for L4-L5 lumbar laminectomy with decompression. Patient tolerated the procedure very well. Currently denied any complaints of chest pain or shortness breath. Complains of lower back pain today., Improving with pain medications. Blood pressure is in the lower side. MRI of the lumbar spine from 08/14/2020 reveals: Cointinued disc herniation with moderative to severe central stenosis of L4-5 and L5-S1 with thecal sac encroachment, b/l facet hypertrophy contributing to stenosis as well as disc degeneration. There are no fractures or dislocations noted. There are post surgical changes with R sided laminotomy of L4-5 from previous surgery done at [facility]. Review of Systems Constitutional: Patient denies any fever or chills . No generalized weakness or weight loss. Abdomen: Patient denied nausea vomiting and diarrhea and abdominal pain. Cardiovascular: Patient denies any chest pain or short of breath no palpitations. Respiratory: patient denied any cough or sputum production. No shortness of breath Neurologic: Patient denied any numbness or tingling headache. Musculoskeletal: Patient denies any complaints of joint swelling or deformity. lower back pain Skin: Negative Psychiatric: Negative Endocrine: No heat or cold intolerance. No recent weight gain. Genitourinary: No dysuria or hematuria. All other 14 point ROS negative except the above Past Medical History Past Medical History: Hypertension Additional Past Medical History / Comment(s): HERNIATED DISCS WITH BACK PAIN RADIATING DOWN RIGHT LEG. History of Any Multi-Drug Resistant Organisms: None Reported Past Surgical History: Back Surgery, Orthopedic Surgery Additional Past Surgical History / Comment(s): PAIN CLINIC PROCEDURES, JEMMA ROTATOR CUFF REPAIR Past Anesthesia/Blood Transfusion Reactions: No Reported Reaction Past Psychological History: No Psychological Hx Reported Past Alcohol Use History: Occasional Additional Past Alcohol Use History / Comment(s): SMOKES 1 PPD, SMOKING SINCE 13 YEARS OLD Past Drug Use History: None Reported - Past Family History Mother Family Medical History: No Reported History Medications and Allergies Home Medications Medication Instructions Recorded Confirmed Type Hydrocodone/Acetaminophen [[place] 1 tab PO Q6H PRN 08/25/17 10/01/20 History 7.5-325] Citalopram Hydrobromide 20 mg PO DAILY 12/02/17 10/01/20 History [Citalopram HBr] Meloxicam 15 mg PO DAILY 12/07/17 10/01/20 History Atenolol [Tenormin] 100 mg PO DAILY 09/30/20 10/01/20 History Cyclobenzaprine [Flexeril] 10 mg PO HS PRN 09/30/20 10/01/20 History Gabapentin [Neurontin] 300 - 600 mg PO DAILY 09/30/20 10/01/20 History Tadalafil [Cialis] 20 mg PO DIRECTED PRN 09/30/20 10/01/20 History amLODIPine [Norvasc] 5 mg PO DAILY 09/30/20 10/01/20 History hydroCHLOROthiazide [Hydrodiuril] 25 mg PO DAILY 09/30/20 10/01/20 History Allergies Allergy/AdvReac Type Severity Reaction Status Date / Time No Known Allergies Allergy Verified 10/01/20 06:28 Physical Exam Vitals: Vital Signs Temp Pulse Resp BP Pulse Ox 10/01/20 15:23 97.3 F L 62 16 135/87 98 10/01/20 14:35 56 L 17 113/66 98 10/01/20 14:15 57 L 18 144/67 100 10/01/20 13:45 55 L 16 143/67 99 10/01/20 13:15 61 18 143/66 98 10/01/20 13:00 64 18 143/88 99 10/01/20 12:45 59 L 18 149/85 97 10/01/20 12:30 66 18 126/79 99 10/01/20 12:15 65 18 117/62 100 10/01/20 12:04 97.5 F L 74 16 127/77 100 10/01/20 06:46 98.1 F 67 18 98 Intake and Output 10/01/20 10/01/20 10/01/20 06:59 14:59 22:59 Intake Total 3200 Output Total 500 Balance 2700 Intake: IV 3200 Output: Urine 300 Estimated Blood Loss 200 Other: Weight 130.7 kg PHYSICAL EXAMINATION: Patient is lying in the bed comfortably, no acute distress, awake alert and oriented.Morbidly obese. HEENT: Normocephalic. Neck is supple. Pupils reactive. Nostrils clear. Oral cavity is moist. Ears reveal no drainage. Neck reveals no JVD, carotid bruits, or thyromegaly. CHEST EXAMINATION: Trachea is central. Symmetrical expansion. Bibasilar diminished air entry.. Lung valentin clear to auscultation and percussion. CARDIAC: Normal S1, S2 with no gallops. No murmurs ABDOMEN: Soft. Bowel sounds normal. No organomegaly. No abdominal bruits. Extremities: reveal no edema. No clubbing or cyanosis, Lumbar spinal surgical site is bandaged. Neurologically awake, alert, oriented x3 with well-coordinated movements. No focal deficits noted Skin: No rash or skin lesions. Psychiatric: Coperative. Nonsuicidal Musculoskeletal: No joint swelling or deformity. Normal range of motion. Assessment and Plan Assessment: L4-L5, L5-S1 disc herniation with stenosis status post lumbar spinal decompression surgery. Postoperative day 0. Previous history of laminectomy and decompression. Hypertension. Currently blood pressure is not elevated Currently everyday smoker 1 pack/day Morbid obesity with BMI 41.3 DVT prophylaxis with SCDs Plan: Patient will be continued pain management, bowel regimen. Encourage incentive spirometry and ambulation. Blood pressure medications, hydrochlorothiazide and atenolol are on hold due to hypotension. Monitor CBC and BMP tomorrow. Smoking cessation has been counseled and patient was given nicotine patch. Follow-up closely and further recommendations based on the clinical course. will continue to follow with you. Thank you for your consult. Time with Patient: Greater than 30
[2020-10-02] MEDS: KETOROLAC 15 MG/ML 1 ML VIAL IVP SCH (06:01)
[2020-10-02] MEDS: 0.9% NACL WITH KCL 20 MEQ/L 1,000 ML IV SCH (06:04)
[2020-10-02 06:21] LABS: Basophils % (A) 0 %; Eosinophils % (A) 0 %; HCT 46.1 % (39.0-53.0); HGB 15.6 gm/dL (13.0-17.5); Lymphocytes # (A) 2.5 k/uL (1.0-4.8); Lymphocytes % (A) 17 %; MCH 31.6 pg (25.0-35.0); MCHC 33.8 g/dL (31.0-37.0); MCV 93.4 fL (80.0-100.0); Mean Platelet Volume 8.3; Monocytes # (A) 0.8 k/uL (0-1.0); Monocytes % (A) 6 %; Neutrophils # (A) 11.2 k/uL (1.3-7.7); Neutrophils % (A) 76 %; Platelet Count 224 k/uL (150-450); RBC 4.94 m/uL (4.30-5.90); RDW 13.4 % (11.5-15.5); WBC 14.8 k/uL (3.8-10.6)
[2020-10-02] MEDS: NICOTINE 14MG/24HR PATCH TRANSDERM SCH (08:10)
[2020-10-02] MEDS: DOCUSATE 100 MG CAP PO SCH (08:11)
[2020-10-02] MEDS: GABAPENTIN 300 MG CAP PO SCH (08:11)
[2020-10-02] MEDS: LACTATED RINGERS 1,000 ML IV SCH (08:12)
[2020-10-02 08:21] VITALS: BP 119/78; PULSE 64; RESP 18; TEMP 98.1
--- NOTE | 2020-10-02 08:45 | P.PN ---
Subjective Progress Note Date: 10/02/20 Principal diagnosis: L4-5 and L5-S1 HNP with stenosis s/p previous L4-5 laminotomy Patient seen and examined. He is doing fairly well however painful this morning and is difficult to control his pain due to his previous narcotic usage. Although the patient has not had pain medication since 1 AM and so he is getting them now. He is otherwise been up and about gone to the bathroom has no issues with any bowel or bladder or perineal problems. Patient states he wants to go home and is going to go today. Drains are putting out 15 and 70 since surgery. Objective - Vital Signs Vital signs: Vital Signs Temp 98.1 F 10/02/20 08:20 Pulse 64 10/02/20 08:20 Resp 18 10/02/20 08:20 BP 119/78 10/02/20 08:20 Pulse Ox 95 10/02/20 01:44 Intake & Output 10/01/20 10/02/20 10/02/20 18:59 06:59 18:59 Intake Total 3750 Output Total 675 340 Balance 3075 -340 Intake: IV 3750 Output: Drainage 140 Left Lower Back 80 Right Lower Back 60 Urine 475 200 Estimated Blood Loss 200 - Exam GEN: AOX3, NAD VSS Inspection: Appears well in some pain Palpation: Tenderness to palpation around the incision no fluctuance Motor: 5/5 shoulder abd/EF/EE/WF/intrinsics 5/5 DF/PF/EHL/FHL/HF/KE/KF Reflexes: 2/4 DTR all upper and LE Sensation intact to light touch in C5-T1 as well as L2-S1 distribution Zavala's: Negative bilaterally Clonus: . Negative Bilaterally Babinski: Negative bilaterally Incision: Clean dry and intact mesh tape in place no drainage Dressing: Lean dry and intact changed drains removed. Drain: 50, 70 - Labs CBC & Chem 7: 10/02/20 05:52 Labs: Abnormal Lab Results - Last 24 Hours (Table) 10/02/20 Range/Units 05:52 WBC 14.8 H (3.8-10.6) k/uL Neutrophils # 11.2 H (1.3-7.7) k/uL Assessment and Plan Assessment: 45-year-old male postoperative day 1 L4 5 and L5-S1 bilateral laminotomy facetectomy and foraminotomies with discectomy 1. L4-5 , L5-S1 disc herniation with stenosis 2. S/P Laser spine decompression Plan: -Appreciate medicine management. -Pain control: Continue with pain management protocol, make sure to stay on schedule -Aggressive ambulation protocol. OOB with all meals. OOB or in chair 4-5x daily. -PT/OT -TEDs, SCDs, mechanical ppx. OK for heparin today. Early ambulation is best. -GI ppx. -No further imaging needed at this time -Trend labs. -Dispo: Home today
[2020-10-02] MEDS ORDERED: polyethylene glycoL 3350 17 GM POWD.PACK PO SCH (09:00)
[2020-10-02] MEDS ORDERED: CITALOPRAM HYDROBROMIDE 20 MG TAB PO SCH (09:00)
[2020-10-02 09:52] LABS: African American GFR (CKD) 124.2 (60.0-200.0); Non-African American GFR(CKD) 107.1 (60.0-200.0); Potassium 4.8 mmol/L (3.5-5.5)
--- NOTE | 2020-10-02 11:42 | P.PN ---
Subjective Progress Note Date: 10/02/20 Patient is a 45-year-old male with a known history of hypertension, herniated lumbar disc, morbid obesity BMI 40.3 who has been having low back pain for the past 4 years. Recently patient has been having pain radiating down his right leg with occasional tingling sensation. Patient did have previous history of laminectomy and decompression in 2017 in [place] without much relief. Patient has been using pain medications and gabapentin without much relief. Patient had failed conservative measures including epidural injections. Patient was currently admitted to the hospital for L4-L5 lumbar laminectomy with decompression. Patient tolerated the procedure very well. Currently denied any complaints of chest pain or shortness breath. Complains of lower back pain today., Improving with pain medications. Blood pressure is in the lower side. MRI of the lumbar spine from 08/14/2020 reveals: Cointinued disc herniation with moderative to severe central stenosis of L4-5 and L5-S1 with thecal sac enc roachment, b/l facet hypertrophy contributing to stenosis as well as disc degeneration. There are no fractures or dislocations noted. There are post surgical changes with R sided laminotomy of L4-5 from previous surgery done at [facility]. 10/02/2020 Patient was seen and evaluated and follow-up status post L4-5 and L5-S1 bilateral laminotomy facetectomy and foraminotomies with discectomy with orthopedic surgery yesterday. Patient is currently sitting up at the side of the bed with no issues. Patient states he is tolerating diet with no reports of nausea or vomiting and is going to the bathroom with no difficulties. Patient has an incentive spirometer at the bedside and instructed him to continue using it 10 times every hour while awake even in home along with increasing activity as tolerated. Blood pressures on the low normal side and instructed the patient to continue to hold his blood pressure medications today and monitor blood pressure and may resume tomorrow. Instructed the patient to follow-up with primary care provider upon discharge. Patient states he is going home today and currently awaiting a ride. Review of systems: Constitutional: No reports of fatigue, fever, or chills Cardiovascular: No reports of chest pain or palpitations Respiratory: No reports of shortness of breath or cough GI: No reports of nausea, vomiting, or diarrhea : No reports of dysuria or retention Neurovascular: No reports of weakness or numbness All medications have been reviewed Objective - Vital Signs Vital signs: Vital Signs Temp 98.1 F 10/02/20 08:20 Pulse 64 10/02/20 08:20 Resp 18 10/02/20 08:20 BP 119/78 10/02/20 08:20 Pulse Ox 95 10/02/20 01:44 Intake & Output 10/01/20 10/02/20 10/02/20 18:59 06:59 18:59 Intake Total 3750 Output Total 675 340 Balance 3075 -340 Intake: IV 3750 Output: Drainage 140 Left Lower Back 80 Right Lower Back 60 Urine 475 200 Estimated Blood Loss 200 - Exam Patient is sitting up at the side of the bed comfortably, no acute distress, awake alert and oriented. Morbidly obese. HEENT: Normocephalic. Neck is supple. Pupils reactive. Nostrils clear. Oral cavity is moist. Ears reveal no drainage. Neck reveals no JVD, carotid bruits, or thyromegaly. CHEST EXAMINATION: Trachea is central. Symmetrical expansion. Bibasilar diminished air entry. Lung valentin clear to auscultation and percussion. CARDIAC: Normal S1, S2 with no gallops. No murmurs ABDOMEN: Soft. Bowel sounds normal. No organomegaly. No abdominal bruits. Extremities: reveal no edema. No clubbing or cyanosis, Lumbar spinal surgical site is bandaged. Neurologically awake, alert, oriented x3 with well-coordinated movements. No focal deficits noted Skin: No rash or skin lesions. Psychiatric: Cooperative. Non-suicidal Musculoskeletal: No joint swelling or deformity. Normal range of motion. - Labs CBC & Chem 7: 10/02/20 05:52 10/02/20 05:52 Labs: Abnormal Lab Results - Last 24 Hours (Table) 10/02/20 10/02/20 Range/Units 05:52 05:52 WBC 14.8 H (3.8-10.6) k/uL Neutrophils # 11.2 H (1.3-7.7) k/uL Glucose 113 H (70-110) mg/dL Assessment and Plan Assessment: L4-L5, L5-S1 disc herniation with stenosis status post lumbar spinal decompression surgery. Postoperative day 1. Previous history of laminectomy and decompression. Hypertension. Currently blood pressure is not elevated Currently everyday smoker 1 pack/day Morbid obesity with BMI 41.3 DVT prophylaxis with SCDs Plan: Patient will be continued pain management, bowel regimen. Discussed with the patient about continuing to use incentive spirometer at least 10 times every hour while awake even in the home setting along with increasing activity as tolerated. Blood pressure medications, hydrochlorothiazide and atenolol are on hold due to postoperative hypotension and blood pressures continue to be on the lower side and instructed patient to hold blood pressure medications today and monitor blood pressure in the outpatient setting and may resume tomorrow. Labs within normal limits. Patient instructed to follow-up with primary care melissa mejía upon discharge. Smoking cessation has been counseled. Follow-up closely and further recommendations based on the clinical course. will continue to follow with you. Patient states he is being discharged today. Thank you for this consult and will continue follow along with you during hospi talization.
--- NOTE | 2020-10-03 08:14 | P.DS ---
Providers Date of admission: 10/01/20 06:04 Expected date of discharge: 10/02/20 Attending physician: Abdirizak Jama DO Consults: 10/01/20 11:39 Consult Physician Routine Consulting Provider: Alpesh Cisse Consult Reason/Comments: Medical Management Do you want consulting provider notified?: Yes Primary care physician: Clara Barton Hospital Course: Spine Surgery Discharge Summary Note Admission Date: 10/01/2020 Discharge Date: 10/02/2020 Providers: Tanna Jama Principal Diagnosis: [L4 5 and L5-S1 stenosis with herniated nucleus pulposus] Procedures: L4 5 and L5-S1 bilateral laminotomy medial facetectomy foraminotomy and discectomy Secondary Diagnoses: Hypertension, obesity, nicotine use, Discharge Medications: [See list] Allergies: NO KNOWN DRUG ALLERGIES Hospital Course: The patient was evaluated preoperatively and found to have the diagnosis of stenosis L4 5 and L5-S1 with herniated nucleus pulposus and disc osteophyte complex. They underwent appropriate preoperative care and were willing to undergo the intended procedure. They underwent a successful L4 5 and L5-S1 bilateral laminotomy foraminotomies facetectomy and discectomy, were recovered appropriately and sent to the floor. While on the floor they worked with physical therapy, occupational therapy and nursing to enhance their recovery experience. Their pain was well controlled through their stay and they were started on appropriate medications, DVT ppx modalities, activity and dietary needs. Daily labs were monitored closely, and transfusions were only used when necessary. Medicine as well as other consulting services have made their input and have helped with our team approach and multidisciplinary care. PT milestones have been met and passed and they have made the recommendation of home for this patient and treating providers agree with this care path. The patient will be discharged home with appropriate medications, instructions and follow-up information and in stable condition. Plan - Discharge Summary Discharge Rx Participant: Yes New Discharge Prescriptions: New Docusate [Colace] 100 mg PO DAILY PRN #20 capsule PRN Reason: Constipation Cyclobenzaprine [Flexeril] 10 mg PO TID PRN #40 tab PRN Reason: Spasms Gabapentin 300 mg PO TID #90 cap Ibuprofen [Motrin] 800 mg PO Q8H PRN #90 tab PRN Reason: Mild Pain oxyCODONE-APAP 10-325MG [Percocet 10-325 mg] 1 - 2 tab PO Q4HR PRN 7 Days #56 tab PRN Reason: Severe Pain Sennosides/Docusate Sodium [Senna Plus 8.6-50 mg Softgel] 1 each PO BID PRN #20 capsule PRN Reason: Constipation No Action Hydrocodone/Acetaminophen [[place] 7.5-325] 1 tab PO Q6H PRN PRN Reason: Pain Citalopram Hydrobromide [Citalopram HBr] 20 mg PO DAILY Meloxicam 15 mg PO DAILY Gabapentin [Neurontin] 300 - 600 mg PO DAILY Atenolol [Tenormin] 100 mg PO DAILY hydroCHLOROthiazide [Hydrodiuril] 25 mg PO DAILY amLODIPine [Norvasc] 5 mg PO DAILY Cyclobenzaprine [Flexeril] 10 mg PO HS PRN PRN Reason: Muscle Spasm Tadalafil [Cialis] 20 mg PO DIRECTED PRN PRN Reason: erectile dysfunction Discharge Medication List Hydrocodone/Acetaminophen [[place] 7.5-325] 1 tab PO Q6H PRN 08/25/17 [History] Citalopram Hydrobromide [Citalopram HBr] 20 mg PO DAILY 12/02/17 [History] Meloxicam 15 mg PO DAILY 12/07/17 [History] Atenolol [Tenormin] 100 mg PO DAILY 09/30/20 [History] Cyclobenzaprine [Flexeril] 10 mg PO HS PRN 09/30/20 [History] Gabapentin [Neurontin] 300 - 600 mg PO DAILY 09/30/20 [History] Tadalafil [Cialis] 20 mg PO DIRECTED PRN 09/30/20 [History] amLODIPine [Norvasc] 5 mg PO DAILY 09/30/20 [History] hydroCHLOROthiazide [Hydrodiuril] 25 mg PO DAILY 09/30/20 [History] Cyclobenzaprine [Flexeril] 10 mg PO TID PRN #40 tab 10/02/20 [Rx] Docusate [Colace] 100 mg PO DAILY PRN #20 capsule 10/02/20 [Rx] Gabapentin 300 mg PO TID #90 cap 10/02/20 [Rx] Ibuprofen [Motrin] 800 mg PO Q8H PRN #90 tab 10/02/20 [Rx] Sennosides/Docusate Sodium [Senna Plus 8.6-50 mg Softgel] 1 each PO BID PRN #20 capsule 10/02/20 [Rx] oxyCODONE-APAP 10-325MG [Percocet 10-325 mg] 1 - 2 tab PO Q4HR PRN 7 Days #56 tab 10/02/20 [Rx] Activity/Diet/Wound Care/Special Instructions: Spine Discharge and Recovery Instructions Date of Surgery: 10/01/2020 Diagnosis: Stenosis with disc herniation L4 5 and L5-S1 with neurogenic claudication Procedure: L4 5 and L5-S1 decompressive laminectomy with discectomy Medications: See list All medication refills should be obtained through your primary care doctor or your clinic spine surgeon. Please discuss prescription refills at your follow up appointment. Do not call the hospital for medication refills. Dressing: Leave your dressing in place for a total of 3 days post operatively. Then you may remove your dressing and leave open to air. Keep the area clean and if not able to keep area clean, then cover with sterile gauze and tape. Showering: You may shower 3 days after your procedure allowing soap and water to run over incision. Do not scrub. Do not soak. Blot dry. Follow up: Please confirm a follow up appointment with your surgeon 2 weeks post operatively. Please make an appointment to follow up with your PCP in 1-2 weeks after surgery for evaluation 3 phase, 3-week plan POST OP WEEKS 1-3 1. Lifting/carrying/pushing/pulling limited to less than 5 pounds. 2. Do not sit for longer than 15 minutes at one time. Get up and walk around. Prolonged sitting is NOT advised. If you lay down, see if you can tolerate laying down on you front (belly side) 3. Walk for periods of 15 minutes = 1 mile but no longer; do it multiple times times each day. 4.Ice your low back after activity. POST OP WEEKS 3-6 1. Lifting limited to less than 20 pounds. 2. Do not sit for longer than 30 minutes at a time. Frequently change positions. Use a sit-to stand workstation or take frequent breaks from sitting if you have returned to work. 3. Walk for 30 minutes each day. If possible, do these three or more times a day POST OP WEEKS 6+ At your 6-week appointment we will give you a physical therapy referral to focus on a core stabilization and strengthening program. You should also work on leg & buttock strengthening, hamstring & quadriceps stretching, and continue a low impact aerobic activity program such as swimming, walking, or riding a stationary bicycle. During the initial 6 weeks after your surgery, you are at the highest risk of re-injuring your spine. You should generally avoid BLTs (bending, lifting and twisting combination motions) and follow the above guidelines to reduce the chance of reinjury. You can anticipate post op appointments in our office at approximately 3 weeks and 6 weeks after your surgery. INCISION CARE: If your incision is not draining you do NOT need to cover it with a dressing. Keep your incision clean, dry and intact. In most cases, we apply skin glue, jeff or sutures to the incision at the time of surgery. This will be like a crust or have the appearance of a scab and will fall off in time on its own. The stitches or jeff need to be removed at 3 weeks post op appointment. You may begin to shower 3 days after surgery (this allows the glue to montero well). However, please avoid scrubbing the incision site or peeling off any of the skin glue. This will ensure optimal healing of your incision. Also, during this time avoid soaking the incision area in water - this includes swimming pools, hot tubs or baths. No ointments, lotions or oils on the incision until your surgeon allows. Leave jeff, sutures or glue in place. Neurological dysfunction that comes on suddenly can also be a sign of a stroke. Below some common symptoms of a stroke are listed: B - balance difficulty such as sudden onset walking or leaning to one side - NEW E - eye problem such as sudden double vision or trouble seeing on one side - NEW F - Facial weakness or numbness on one side - NEW A - Arm or leg weakness or numbness on one side - NEW S - Slurred speech or difficulty with word finding - NEW T - Time is BRAIN! Call 911 as soon as you recognize these symptoms Diet: Consume a regular diet rich in vegetables and lean protein such as chicken or fish. You should consume in a ratio of approximately 20% fats|40% carbohydrates|40%protein. Vegetables, sweet potatoes, brown rice or quinoa are examples of good carbohydrates. Chips, white bread, cookies and sweets/sugar are examples of bad carbohydrates. Limit your bad carbs, go wild with good carbs. "Life's Simple 7" Guidelines as per [place] [employer] These will help you reclaim your life after surgery and cupola tender helper in your recovery, keeping in mind your restrictions. (1) Get Active. Physical activity can help people lose weight, control high blood pressure and cholesterol, feel emotionally better, and sleep better. (2) Control Cholesterol. Avoid a diet high in saturated fat, trans fat, & cholesterol. Limit whole milk & cream, ice cream, butter, egg yolks, processed meats (like sausage and hot dogs), and fatty meats. Choose healthy foods that are low in saturated fat, trans fat and cholesterol which include: Fruits and vegetables, fiber rich grain products (like whole grain pasta and brown rice), lean meat such as chicken, fish, nuts, seeds, and legumes. (3) Eat Better. Eat small portions. Shop at the grocery with a list and do not stray from it. Tips for a healthy diet include: Limit sodium intake to less than 1500mg daily, avoid prepackaged, processed, and fast foods, choose a diet rich in fruits, vegetables, and whole grain, high fiber foods, and limit saturated & cholesterol in your diet. (4) Manage Blood Pressure. If you have high blood pressure, you should have a cuff at home so that you can check your blood pressure regularly. Be sure you have a good cuff. An arm one is generally better than a wrist one. Bring the cuff to a doctor's appointment to validate that the measurements that your cuff are taking are accurate. Take your blood pressure twice daily when you are sitting down and relaxing. Record the numbers in a log and bring this log with you to your doctors' appointments. (5) Lose Weight if your BMI is above 25. A healthy BMI is between 19-25. To calculate Your BMI, you may use a Standard BMI Calculator on the NIH BMI website : <www.nhlbi.nih.gov/guidelines/obesity/BMI/bmicalc.htm>. Weigh oneself daily. If you are overweight, set a goal to lose weight. A pound a week loss if needed is a good target. (6) Reduce Blood Sugar. Limit foods and liquids with "added sugars." (Added sugars include sucrose, fructose, glucose, maltose, dextrose, high fructose corn syrup, corn syrup, concentrated fruit juice and honey). (7) Stop Smoking. If you smoke, quitting smoking is one of the best things that you can do for your health. Smoking increases your risk of heart attack, stroke, and peripheral vascular disease, which is a build-up of plaque in your arteries. Please discard all the cigarettes and lighters in your house. Have a plan for what you will do when you have the urge to smoke. Direct and second- hand smoke shortens your life as well as the lives of your family, friends and others around you. For your health and the health of those around you, please consider quitting! Proper Bending Body Mechanics: Maintain a wide stance with one foot slightly in front of the other. Keep your back straight. Bend utilizing the strength in your hips and knees. Do not bend at the waist. Maintain the lifted object at your waist-level close to your body. Avoid lifting weight that causes immediately pain or pain anywhere in the body afterwards. Smoking/Nicotine If there was ever one thing that you could do to increase your overall health, decrease your risk of cardiovascular problems by about 39% the second you make the choice, it is to STOP SMOKING. Your body's most instant gratification is the second you stop smoking. We have all heard the studies, read the articles but it is true, smoking is extremely bad for your overall health, and moreover it is detrimental to your bone health. Nicotine, IN ANY FORM, kills bone cells, prevents your body from healing fractures, and significantly prolongs healing after surgery. In spine surgery specifically, it increases your risk of not healing your bones to create a fusion and increases your risk of having a revision surgery due to this up to 60%. I know it is hard. I know it feels impossible. But there are ways. Take control of your life. We are here to help you through it. And when you are ready, ask us and we can direct you to help if you desire. Use the START Plan to Quit Smoking (please visit the Helpguide.org website listed below for more information): S = Set a quit date. Choose a date within the next 2 weeks, so you have enough time to prepare without losing your motivation to quit. If you mainly smoke at work, quit on the weekend, so you have a few days to adjust to the change. T = Tell family, friends, and co-workers that you plan to quit. Let your friends and family in on your plan to quit smoking and tell them you need their support and encouragement to stop. Look for a quit martha who wants to stop smoking as well. You can help each other get through the rough times. A = Anticipate and plan for the challenges you'll face while quitting. Most people who begin smoking again do so within the first 3 months. You can help yourself make it through by preparing ahead for common challenges, such as nicotine withdrawal and cigarette cravings. R = Remove cigarettes and other tobacco products from your home, car, and work. Throw away all your cigarettes (no emergency pack!), lighters, ashtrays, and matches. Wash your clothes and freshen up anything that smells like smoke. Shampoo your car, clean your drapes and carpet, and steam your furniture. T = Talk to your doctor about getting help to quit. Your doctor can prescribe medication to help with withdrawal and suggest other alternatives. If you can't see a doctor, you can get many products over the counter at your local pharmacy or grocery store, including the nicotine patch, nicotine lozenges, and nicotine gum. Resources for Quitting Smoking: <https://www.[place].gov/documents/api healthcare/Quit_Tobacco_Resources_for_patients_313 480_7.pdf> Supplementation: Take recommended dosages of Vitamin D and Calcium to help fortify your bones and help them to heal. See your health maintenance packet for dosages and recommended levels. DVT/VTE prophylaxis: You will be given compression stockings from the hospital. Wear these daily for the first two weeks after surgery. You may take them off at night. You may be prescribed a medication to help thin your blood. Take this as directed. If you are not prescribed this medication, early and frequent ambulation has been shown to be the best prophylaxis to deep vein thrombosis and sequelae related to this event. Discharge Disposition: HOME WITH HOME HEALTH SERVICES
--- NOTE | 2020-10-03 08:19 | P.OP ---
Date of Procedure: 10/01/20 Preoperative Diagnosis: 1. L4-5 stenosis with recurrent disc herniation 2. L5-S1 Stenosis 3. RLE weakness 4. Neurogenic Claudication Postoperative Diagnosis: 1. L4-5 stenosis with recurrent disc herniation 2. L5-S1 Stenosis 3. RLE weakness 4. Neurogenic Claudication 5. S/p laser spine decompression L4-5 R Procedure(s) Performed: 1. Exploration of decompression L4-5 2. Revision decompression L4-5 with bilateral foraminotomy, medial facetectomy, foraminotomy 3. L4-5 microdiscectomy 4. L5-S1 RIGHT sided laminotomy, medial facetectomy and foraminotomy with microdiscectomy 5. Use of intraoperative microscope Implants: None Anesthesia: GETA Surgeon: Abdirizak Jama (HERNANDEZ Lopez was present for the entire case and was necessary due to the complexity of the case) Estimated Blood Loss (ml): 200 IV fluids (ml): 3,000 Urine output (ml): 200 Pathology: none sent Condition: stable Disposition: PACU Indications for Procedure: This 45 year old male presents with 4 years of low back pain. He notes pain that radiates into his right leg. Patient notes occasional tingling sensation into his feet along with into his left arm. He notes increased pain with prolonged weight bearing and sitting. He had a previous laminectomy and decompression ( laser surgery) 2017 In [place] without relief. he is very disappointed with this surgery and the amount of money spent on this surgery without any relief. He takes Jackson 7.5/325mg four times daily along with Gabapentin and Meloxicam. he denies any perineal numbness or tingling. He denies any bowel or bladder incontinence. He denies weakness in his right lower extremity although he does state fairly intense radicular type pain that travels down the back and outside of his leg into his calf and foot. He has had recent injections into his back w hich have failed to give him any relief. He did state that one of the injections did work however he is unsure of where that injection was placed in relation to the other injections that he had. He states the physical therapy does not help his pain. And he has done several visits with this. He states that the meloxicam he takes seems to take the edge off but it does not help him and that is why he takes Jackson 75/325 mg. Operative Findings: Severe stenosis with disc osteophyte complex at L4 5 with disc herniation on the right at L5-S1. Severe ligamental hypertrophy with epidural lipomatosis L5-S1 and L4 5 Post laminotomy scar right hand side L4 5 Description of Procedure: The patient was seen and examined in the preoperative area. All preoperative protocols were followed. Informed consent was obtained risks and benefits of the procedure were discussed at length. Risks including bleeding infection damage to the surrounding tissue and risk of reoperation were discussed with the patient. Risk of anesthesia up to and including was a discussed with the patient. These are outlined in the risk review. They were willing to accept these risks and all of the risks of surgery. The patient was given a weight- based dose of antibiotics in the form of 3 g Ancef IVPB 1. The patient was seen and evaluated by the anesthesia team who deemed them fit for surgery. The site was marked, the patient was willing to proceed with the procedure. The patient was transferred to the operative suite by the Department of anesthesia. They were then drifted off to sleep by the department anesthesia Gen. endotracheal intubation. The patient tolerated this well. Dudley catheter was placed by nursing staff, atraumatically and will be removed once the cases over. Once confirmation of lines and ventilation the patient was transferred to a a prone Arthur Jameel table very carefully. All bony prominences including wrists, elbows, axilla, chest, hips, and thighs, and feet were padded very well. Special attention was paid to the genitalia and these were padded accordingly. SCDs were placed on bilateral lower extremities and were connected. Arms were well padded and placed on arm boards up and out in the 90/90 position. Once in position, again we confirmed good ventilation capabilities and that lines were running appropriately. The patient's lumbar spine was then exposed. 1010s were placed outlining the incision site. Standard alcohol was used to clean the incision site and allowed to dry. C-arm was used to biomark the patient and confirm level for incision which was marked with a skin marker. Operative briefing was performed with all teams and everyone in agreement to proceed. The patient was then prepped and draped in a normal sterile fashion. Timeout was then performed and all parties were in agreement with the procedure to be performed. The area which was previously by Sandro was then infiltrated with quarter percent Marcaine without epinephrine bilaterally. Skin incision was then made on the previous by marked area midline and taken down to the subcutaneous tissue. Electrocautery dissection was then used for meticulous hemostasis and to expose the lumbosacral fascia. Once this was encountered a Leal was used to clean it in its entirety. Bilateral midline sparing fasciotomy was then made over the L4 5 and L5-S1 region which was fused by December. Scar was encountered in this area due to the patient's previous right-sided hemilaminotomy at L4 5. Subperiosteal dissection was taken down over the L4 lamina to expose the L4 pars as well as lamina. The L5 pars and lamina were then identified as well as the S1. This was done bilaterally. Scar tissue was removed meticulously and carefully with a Leal and electrocautery dissection. Meticulous hemostasis ensued. A lateral x- ray with a Raleigh 4 placed at the L4 pars was then taken to identify the L4 5 disc space which was confirmed. High-speed bur was then used to make a left- sided unilateral hemilaminotomy and medial facetectomy and foraminotomy of the left handed L4 5 region. The ligamentum flavum was removed in this area which was extremely high tourniquet hypertrophied and scarred medially. The dural sac as well as the exiting nerve root and traversing nerve root were then mobilized. Posteriorly there was a disc osteophyte complex which could be palpated and seen in this area and so an osteotome was used to access the disc space. This was done under lateral fluoroscopy as well. A 20 down-biting curet was then us ed to tamp the osteophyte and disc osteophyte complex anteriorly into the disc space. Any free-floating pieces were then removed with a micropituitary. This large disc osteophyte complex was felt and palpated medially as well and so a 20 shagufta biter as well as a Elizabeth were used to free the anterior portion of the dura and then the down biter was used again to impact this into the disc space. Pituitary was again used to remove any loose pieces. The patient's disc space was somewhat vacuous however he was stable. Attention was then drawn to the right hand side previous laminotomy section. High-speed bur was used to widen the laminotomy. 2-0 up biter curette was used to remove the scar tissue from this area and a Raleigh 4 used to mobilize the dural tissue. Once dural tissue was freed the disc space was entered on this side as well which allowed for complete decompression of the nerve roots in this area. A Raleigh 4 with bone wax was then placed into this bilateral laminotomy medial facetectomy and foraminotomies section to allow for meticulous hemostasis a Raleigh [address] this. A Elizabeth was then used to confirm good decompression anterior the thecal sac. A Trevino probe was used to confirm good foraminotomies. FloSeal was then placed in these areas as well as patties to allow for hemostasis. Attention was then drawn to the right side at L5-S1 region where high-speed bur was used to make a unilateral laminotomy medial facetectomy and foraminotomies in this area. Kerrisons were used to widen this foraminotomy deep. The facet joints remained intact other than the medial facetectomy performed. There was exquisite ligamentum hypertrophy in this area and the ligamentum was then removed. Upon removal there was a high amount of epidural lipomatosis which is noted in this area. The nerve root on this side was then mobilized using a Raleigh 4 in the disc space visualized. There is a disc herniation which was visible in this area as well. A 15 blade was used to cut the annulus and allowed for decompression of the disc and this level. A 2-0 down biter was used to push disc material anteriorly back into the disc space and a pituitary used to remove any loose fragments. The thecal sac was confirmed to be decompressed in this area. Trevino ball probe was then used to palpate the foramen which were patent and open. FloSeal and patties were used for meticulous hemostasis once again and then 3 L of normal sterile saline were used for irrigation followed by Irricept followed by 1 L of normal sterile saline irrigation and the wound. The patties were removed meticulous hemostasis ensued and inspection showed good decompression in both areas. 80 mg of Kenalog was then split between these laminotomy sites and placed. Surgicel was placed over the dura. A deep drain was then placed on the right-hand side of the patient deep to the fascia and sewed into place. The lumbosacral fascia was then closed with #1 Vicryl in a simple fashion followed by a running strata fix suture. Subcutaneous drain was then placed on the left-hand side of the patient and sewed into place a layered fascial closure of the Marck's and Camper's fa scia using 0 PDS was then performed followed by a subcutaneous closure with 0 PDS and 2-0 PDS. Subcuticular closure was performed with a 3-0 Monocryl. The wound was then cleaned and sterilely dressed with excess and tape Telfa 4 x 4's and Tegaderms. The patient was transferred back to his hospital bed atraumatically. Drain continued to hold suction and were in good position. The Dudley was removed. Patient was then awakened and extubated by the department of anesthesia having tolerated the procedure very well with no complications. He was transferred to the postoperative care unit in stable condition.
== END 2020-10-02 11:15 | disposition home or self-care (01) | DRG 519 ==
LOC: 2ORMAIN 06:04 → 5NMEDONC 14:32
PROVIDERS: ADMIT Orthopaedic Surgery; ATTEND Orthopaedic Surgery
PROC: 01NB0ZZ Release Lumbar Nerve, Open Approach (ICD-10-PCS; principal; 2020-10-01 07:30)
PROC: 0SB20ZZ Excision of Lumbar Vertebral Disc, Open Approach (ICD-10-PCS; principal; 2020-10-01 07:30)
DX: M48.061 Spinal stenosis, lumbar region without neurogenic claudication (principal); Z68.41 Body mass index [BMI] 40.0-44.9, adult; M51.26 Other intervertebral disc displacement, lumbar region; M51.27 Other intervertebral disc displacement, lumbosacral region; M48.07 Spinal stenosis, lumbosacral region; M51.16 Intervertebral disc disorders with radiculopathy, lumbar region; E66.01 Morbid (severe) obesity due to excess calories; M25.78 Osteophyte, vertebrae; I10 Essential (primary) hypertension; Z98.1 Arthrodesis status; Z79.899 Other long term (current) drug therapy; Z79.1 Long term (current) use of non-steroidal anti-inflammatories (NSAID); Z72.0 Tobacco use
CPT/HCPCS: 80048; 85025; 86850; 86900; 86901

== ENCOUNTER → 2020-11-06 | Outpatient (CLI) | payer BC ==
--- NOTE | 2020-11-07 10:16 | XR ---
EXAMINATION TYPE: XR abdomen 2V DATE OF EXAM: 11/06/2020 COMPARISON: NONE HISTORY: Pain TECHNIQUE: One view abdominal series FINDINGS: The osseous structures are intact. The bowel gas pattern is nonspecific. Lung bases are clear. Hype rtrophic and degenerative change of the spine. Arthropathy of the hips. A few scattered prominent sma ll bowel loops are noted. IMPRESSION: 1. Nonspecific abdomen. Localized or enteritis not excluded correlate clinically.
== END | disposition home or self-care (01) ==
LOC: RADXRYALE 16:08
PROVIDERS: ATTEND Physician Assistant Medical
DX: K59.00 Constipation, unspecified (principal); R10.817 Generalized abdominal tenderness
CPT/HCPCS: 74019

== ENCOUNTER 2020-11-16 12:38 | Inpatient (IN) | payer BC ==
[2020-11-16 12:48] VITALS: RESP 18
[2020-11-16] MEDS ORDERED: VANCOMYCIN IV PER PHARMACY 1 EACH MISC MISCELLANE PRN (13:13)
[2020-11-16] MEDS ORDERED: PIPERACILLIN-TAZOBACTAM 3.375 GM in SODIUM CHLORIDE 0.9% 100 ML IVPB STA (13:13)
[2020-11-16] MEDS ORDERED: MORPHINE SULFATE 4 MG/ML SYRINGE IV PRN (13:14)
[2020-11-16] MEDS ORDERED: NALOXONE 0.4 MG/ML 1 ML VIAL IV PRN (13:14)
[2020-11-16] MEDS ORDERED: ACETAMINOPHEN TAB 325 MG TAB PO PRN (13:14)
[2020-11-16] MEDS ORDERED: SODIUM CHLORIDE 0.9% 1,000 ML IV SCH (13:15)
[2020-11-16] MEDS ORDERED: VANCOMYCIN 2,000 MG in SODIUM CHLORIDE 0.9% 500 ML 500 ML IVPB ONE (13:30)
--- NOTE | 2020-11-16 13:50 | XR ---
KUB HISTORY: Pain and constipation Frontal KUB submitted on 2 images There are distended loops of small and large bowel present. Air-fluid levels are noted. Lung bases ar e clear. No pneumoperitoneum. Degenerative disc changes are present in the visualized spine. IMPRESSION: Findings may represent ileus, correlate to exclude bowel obstruction and follow-up as ind icated.
[2020-11-16 13:51] LABS: Basophils # (A) 0.1 k/uL (0-0.2); Basophils % (A) 1 %; Eosinophils # (A) 0.3 k/uL (0-0.7); Eosinophils % (A) 2 %; HCT 44.8 % (39.0-53.0); HGB 15.2 gm/dL (13.0-17.5); Lymphocytes # (A) 2.5 k/uL (1.0-4.8); Lymphocytes % (A) 21 %; MCH 30.9 pg (25.0-35.0); MCV 90.8 fL (80.0-100.0); Mean Platelet Volume 7.5; Monocytes % (A) 8 %; Neutrophils # (A) 7.8 k/uL (1.3-7.7); Neutrophils % (A) 66 %; Platelet Count 242 k/uL (150-450); RBC 4.94 m/uL (4.30-5.90); RDW 13.5 % (11.5-15.5); WBC 11.8 k/uL (3.8-10.6)
[2020-11-16 14:04] LABS: ALT 18 U/L (4-49); AST 20 U/L (17-59); African American GFR (CKD) >90 (>60 ml/min/1.73 sqM); Albumin 3.6 g/dL (3.5-5.0); Alkaline Phosphatase 65 U/L (38-126); Anion Gap 8 mmol/L; Blood Urea Nitrogen 23 mg/dL (9-20); Calcium 9.6 mg/dL (8.4-10.2); Carbon Dioxide 28 mmol/L (22-30); Chloride 98 mmol/L (98-107); Glucose 103 mg/dL (74-99); Non-African American GFR(CKD) >90 (>60 ml/min/1.73 sqM); Potassium 4.3 mmol/L (3.5-5.1); Sodium 134 mmol/L (137-145); Total Bilirubin 0.6 mg/dL (0.2-1.3); Total Protein 6.6 g/dL (6.3-8.2)
--- NOTE | 2020-11-16 14:12 | ED ---
General Adult HPI - General Chief complaint: Skin/Abscess/Foreign Body Stated complaint: post op infection, back pain Time Seen by Provider: 11/16/20 12:53 Source: patient, RN notes reviewed, old records reviewed Mode of arrival: wheelchair Limitations: no limitations - History of Present Illness Initial comments: 45-year-old male presenting for evaluation of low back pain, swelling and concern for abscess. Patient has had a postoperative infection and has been treated on oral antibiotics. He noted a round swelling at the top of his lumbar incision over the past 48 hours is to drain spontaneously purulent material. He denies fever. He's had significant pain in his been on multiple pain medications and has a second complaint of constipation. No reported fever. - Related Data Home Medications Medication Instructions Recorded Confirmed Hydrocodone/Acetaminophen [[place] 1 tab PO Q6H PRN 08/25/17 10/01/20 7.5-325] Citalopram Hydrobromide 20 mg PO DAILY 12/02/17 10/01/20 [Citalopram HBr] Meloxicam 15 mg PO DAILY 12/07/17 10/01/20 Atenolol [Tenormin] 100 mg PO DAILY 09/30/20 10/01/20 Cyclobenzaprine [Flexeril] 10 mg PO HS PRN 09/30/20 10/01/20 Gabapentin [Neurontin] 300 - 600 mg PO DAILY 09/30/20 10/01/20 Tadalafil [Cialis] 20 mg PO DIRECTED PRN 09/30/20 10/01/20 amLODIPine [Norvasc] 5 mg PO DAILY 09/30/20 10/01/20 hydroCHLOROthiazide [Hydrodiuril] 25 mg PO DAILY 09/30/20 10/01/20 Previous Rx's Medication Instructions Recorded Cyclobenzaprine [Flexeril] 10 mg PO TID PRN #40 tab 10/02/20 Docusate [Colace] 100 mg PO DAILY PRN #20 capsule 10/02/20 Gabapentin 300 mg PO TID #90 cap 10/02/20 Ibuprofen [Motrin] 800 mg PO Q8H PRN #90 tab 10/02/20 Sennosides/Docusate Sodium [Senna 1 each PO BID PRN #20 capsule 10/02/20 Plus 8.6-50 mg Softgel] oxyCODONE-APAP 10-325MG [Percocet 1 - 2 tab PO Q4HR PRN 7 Days #56 10/02/20 10-325 mg] tab Allergies Allergy/AdvReac Type Severity Reaction Status Date / Time No Known Allergies Allergy Verified 11/16/20 12:48 Review of Systems ROS Statement: Those systems with pertinent positive or pertinent negative responses have been documented in the HPI. ROS Other: All systems not noted in ROS Statement are negative. Past Medical History Past Medical History: Hypertension Additional Past Medical History / Comment(s): HERNIATED DISCS WITH BACK PAIN RADIATING DOWN RIGHT LEG. History of Any Multi-Drug Resistant Organisms: None Reported Past Surgical History: Back Surgery, Orthopedic Surgery Additional Past Surgical History / Comment(s): PAIN CLINIC PROCEDURES, JEMMA ROTATOR CUFF REPAIR, laminectomy Past Anesthesia/Blood Transfusion Reactions: No Reported Reaction Past Psychological History: No Psychological Hx Reported Smoking Status: Current every day smoker Past Alcohol Use History: Occasional Past Drug Use History: None Reported - Past Family History Mother Family Medical History: No Reported History General Exam Limitations: no limitations General appearance: alert, in no apparent distress Head exam: Present: atraumatic, normocephalic Eye exam: Present: normal appearance, PERRL ENT exam: Present: normal exam Neck exam: Present: normal inspection. Absent: tenderness, meningismus Respiratory exam: Present: normal lung sounds bilaterally. Absent: respiratory distress, wheezes Cardiovascular Exam: Present: regular rate, normal rhythm GI/Abdominal exam: Present: soft, distended. Absent: tenderness, guarding, rebound Extremities exam: Present: normal inspection, normal capillary refill. Absent: pedal edema Back exam: Present: other (Incision, mild surrounding erythema, at the most caudal portion of the incision there is an 3 mm opening which suggests a previously drained abscess.) Psychiatric exam: Present: normal affect, normal mood Skin exam: Present: warm Course Vital Signs 11/16/20 12:45 Temperature 98.4 F Pulse Rate 75 Respiratory 18 Rate Blood Pressure 118/69 O2 Sat by Pulse 98 Oximetry Medical Decision Making - Medical Decision Making 45-year-old male with incisional abscess which is freely draining. I did discuss case with Dr. Jama who is familiar with this patient's postoperative course. He recommends laboratory testing including CBC, sed rate, and CRP as well as initiation of IV antibiotics. He recommends lumbar MRI with and without contrast as well as infectious disease consultation. These orders have been placed. Patient will be admitted placed in observation awaiting these test results. All laboratory testing is pending at the time of this dictation. - Lab Data Result diagrams: 11/16/20 13:35 Lab Results 11/16/20 11/16/20 Range/Units 13:35 13:35 WBC 11.8 H (3.8-10.6) k/uL RBC 4.94 (4.30-5.90) m/uL Hgb 15.2 (13.0-17.5) gm/dL Hct 44.8 (39.0-53.0) % MCV 90.8 (80.0-100.0) fL MCH 30.9 (25.0-35.0) pg MCHC 34.0 (31.0-37.0) g/dL RDW 13.5 (11.5-15.5) % Plt Count 242 (150-450) k/uL MPV 7.5 Neutrophils % 66 % Lymphocytes % 21 % Monocytes % 8 % Eosinophils % 2 % Basophils % 1 % Neutrophils # 7.8 H (1.3-7.7) k/uL Lymphocytes # 2.5 (1.0-4.8) k/uL Monocytes # 1.0 (0-1.0) k/uL Eosinophils # 0.3 (0-0.7) k/uL Basophils # 0.1 (0-0.2) k/uL Plasma Lactic Acid Pollo 1.1 (0.7-2.0) mmol/L Disposition Clinical Impression: S/P laminectomy, Abscess Disposition: ADMITTED IP TO THIS [facility] Condition: Stable Is patient prescribed a controlled substance at d/c from ED?: No Referrals: Turner Gresham DO [Primary Care Provider] - 1-2 days Decision to Admit Reason: Admit from EC Decision Date: 11/16/20 Decision Time: 14:07
[2020-11-16 14:22] LABS: C Reactive Protein 185.1 mg/L (<10.0)
[2020-11-16 14:52] LABS: Erythrocyte Sedimentation Rate 39 mm/hr (0-15)
--- NOTE | 2020-11-16 15:25 | MR ---
EXAMINATION TYPE: MR lumbar spine wo/w con DATE OF EXAM: 11/16/2020 COMPARISON: 08/14/2020 HISTORY: Postoperative pain, concern for infection. CONTRAST: Standard multiplanar, multisequence MRI departmental protocol utilizing 13 mL intravenous Gadavist ga dolinium contrast. The lumbar vertebra have normal alignment. There is some narrowing at the L4-5 disc with increased fl uid signal on the T2 images within the L4-5 disc space. There is edema on both sides of the L4-5 disc with increased signal on T2 images within the L4 and L5 vertebral bodies. The contrast images show s ome pathologic enhancement of the L4 and L5 vertebral bodies. There is soft tissue posterior enhancem ent at the surgery site at the L4 and L5 level. There are small posterior disc herniations at L4-5 an d L5-S1. There is no lumbar paraspinal mass. There is some epidural enhancement along the posterior a spect of the L5 vertebral body that measures 15 x 7 mm. IMPRESSION: Changes at L4-5 disc consistent with discitis and osteomyelitis in the L4 and L5 vertebral bodies. Th ere is epidural enhancement along the posterior aspect L5 consistent with epidural phlegmon and resid ual disc herniation. There is soft tissue posterior enhancement at the surgery site consistent with l arge phlegmon. This measures approximate 9 x 5 cm. There is moderate spinal stenosis at L4 and L5 lev els.
[2020-11-16] MEDS ORDERED: IBUPROFEN 600 MG TAB PO PRN (15:33)
[2020-11-16] MEDS ORDERED: HYDROmorphone 1 MG/ML 1 ML SYRINGE IVP PRN (15:33)
[2020-11-16] MEDS ORDERED: SENNOSIDES 8.6 MG TAB PO PRN (15:37)
[2020-11-16] MEDS ORDERED: CYCLOBENZAPRINE 10 MG TAB PO PRN (15:37)
[2020-11-16] MEDS ORDERED: oxyCODONE-APAP 10-325MG 1 EACH TAB PO PRN (15:37)
[2020-11-16] MEDS ORDERED: ONDANSETRON 4 MG/2 ML VIAL IVP PRN (15:37)
--- NOTE | 2020-11-16 15:55 | P.HPOR ---
History of Present Illness H&P Date: 11/16/20 Chief Complaint: Back pain, wound dehiscence with purulence 45-year-old male presents complaining of low back pain and purulent discharge from his wound. Patient previously underwent a revision lumbar laminectomy from L4 to S1 on 10/01/2020. He did fairly well after surgery and was recovered and went home. He is seen twice postoperatively and was having increasing posto perative pain but his incision was healing and he was doing fairly well with no subjective fevers chills or other issues. Over the past couple of weeks the patient has noted increasing pain in his low back as well as pain in his hips. He states it is like a bone pain. He also states that his back about 6 days after surgery he felt a new pop in his back and this increased his pain as well. He has been taking pain medications. He was seen in the office and started on an by mouth dose of Duricef for some minor wound issues which seem to clear. He presented today however to the emergency department with increasing pain and purulent drainage from the superior portion of his wound. He states he went to [facility] where they worked him up for some fluid on his abdomen that they did not find anything. The purulent drainage from his wound has only started over the past couple of days. He denies any fevers at home. He denies any chills at home. No shortness of breath or chest pain. He does state some numbness and tingling in his left foot is present after surgery. It does not s eem to be increasing. He denies any bowel or bladder issues other than he is slightly constipated at this time due to the pain medications he is taking. He states no numbness or tingling in his general region and full control of his urinary and bowel. Review of Systems 14 points review of systems completed and as stated in HPI, all other systems reviewed are negative. Past Medical History Past Medical History: Hypertension Additional Past Medical History / Comment(s): HERNIATED DISCS WITH BACK PAIN RADIATING DOWN RIGHT LEG. History of Any Multi-Drug Resistant Organisms: None Reported Past Surgical History: Back Surgery, Orthopedic Surgery Additional Past Surgical History / Comment(s): PAIN CLINIC PROCEDURES, JEMMA ROTATOR CUFF REPAIR, laminectomy Past Anesthesia/Blood Transfusion Reactions: No Reported Reaction Past Psychological History: No Psychological Hx Reported Smoking Status: Current every day smoker Past Alcohol Use History: Occasional Past Drug Use History: None Reported - Past Family History Mother Family Medical History: No Reported History Medications and Allergies Home Medications Medication Instructions Recorded Confirmed Type Citalopram Hydrobromide 20 mg PO DAILY 12/02/17 11/16/20 History [Citalopram HBr] Meloxicam 15 mg PO DAILY PRN 12/07/17 11/16/20 History Atenolol [Tenormin] 100 mg PO DAILY 09/30/20 11/16/20 History Gabapentin [Neurontin] 300 - 600 mg PO DIRECTED PRN 09/30/20 11/16/20 History Tadalafil [Cialis] 20 mg PO DIRECTED PRN 09/30/20 11/16/20 History hydroCHLOROthiazide [Hydrodiuril] 25 mg PO DAILY 09/30/20 11/16/20 History Docusate [Colace] 100 mg PO DAILY PRN #20 capsule 10/02/20 11/16/20 Rx Ibuprofen [Motrin] 800 mg PO Q8H PRN #90 tab 10/02/20 11/16/20 Rx oxyCODONE-APAP 10-325MG [Percocet 1 - 2 tab PO Q4HR PRN 7 Days #56 10/02/20 11/16/20 Rx 10-325 mg] tab Gabapentin 300 mg PO QID 11/16/20 11/16/20 History Lidocaine 5% Patch [Lidoderm] 1 patch TOPICAL DAILY PRN 11/16/20 11/16/20 History Na Phos,M-B/Na Phos,Di-Ba [Fleet 133 ml RECTAL DAILY PRN 11/16/20 11/16/20 Hist ory Adult] Sennosides/Docusate Sodium [Senna 1 tab PO BID PRN 11/16/20 11/16/20 History Plus 8.6-50 mg Softgel] bisacodyL [Dulcolax] 5 mg PO DAILY PRN 11/16/20 11/16/20 History methocarbamoL [Robaxin] 500 mg PO QID PRN 11/16/20 11/16/20 History Allergies Allergy/AdvReac Type Severity Reaction Status Date / Time No Known Allergies Allergy Verified 11/16/20 14:35 Physical Examination Osteopathic Statement: *. No significant issues noted on an osteopathic structural exam other than those noted in the History and Physical/Consult. Patient is alert and oriented 3 appears well-nourished well-hydrated and is in no acute distress. He does not appear septic at this time. Patient's incision while well healed on the bottom has not portion at the very top of a pinhole that is currently exposing exudative material. When pushed on this material increases in drainage. There is no fluctuance felt. There is tenderness to palpation throughout the lumbar spine. There is no tennis palpation of the cervical or thoracic spine. There is no erythema surrounding the incision. There is no ecchymosis. He should not exhibits ability to ambulate around the room but this does increas e his pain. He is able to walk without really any issues and without assistance. His gait is fairly normal at this time He has 5/5 strength in dorsiflexion and plantarflexion EHL FHL knee flexion knee extension hip flexion and hip extension bilaterally of his lower extremities He has 5/5 strength in shoulder abduction and elbow flexion and extension wrist flexion and extension intrinsic muscles of the hand bilaterally He is intact to light touch sensation in the L2 to S1 and C5 to T1 nerve distributions. He has a slight decrease in touch sensation in the S1 on the left-hand side. Palpable dorsalis pedis posterior tibial radial and ulnar pulses bilaterally Compartments soft and compressive Full painless range of motion of all joints of the upper extremity and lower extremity Negative Homans negative Babinskis and negative clonus bilaterally Cranial nerves II through XII are grossly intact. Results X-rays of the lumbar spine as well as MRI reviewed. MRI demonstrates at L4 5 1 reherniation of the L4 5 disc with thecal sac encroachment in this area. The L4 5 disc space also has increased uptake suggesting discitis osteomyelitis in this area.. There is likely epidural phlegmon which is noted posterior L4 L5.. L3 4 and L5-S1 disc spaces appear intact with no other areas of infective process. There is no discernible abscess noted deep to the fascia however there is postsurgical change and swelling in this area. Overall alignment is fairly well maintained still. There is disc collapse at L4 5 which is severe. No other fractures dislocations or lesions noted. - Labs Labs: Abnormal Lab Results - Last 24 Hours (Table) 11/16/20 11/16/20 Range/Units 13:35 13:35 WBC 11.8 H (3.8-10.6) k/uL Neutrophils # 7.8 H (1.3-7.7) k/uL ESR 39 H (0-15) mm/hr Sodium 134 L (137-145) mmol/L BUN 23 H (9-20) mg/dL Glucose 103 H (74-99) mg/dL C-Reactive Protein 185.1 H (<10.0) mg/L H & H 11/16/20 Range/Units 13:35 Hgb 15.2 (13.0-17.5) gm/dL Hct 44.8 (39.0-53.0) % Result Diagrams: 11/16/20 13:35 11/16/20 13:35 Assessment and Plan Assessment: 45-year-old male status post L4 to S1 decompression with epidural abscess formation L4 5 osteomyelitis discitis and epidural phlegmon neurologically stable Plan: Medical and infectious disease consult Trend labs obtained blood cultures Start IV vancomycin await ID recommendations Teds and SCDs Pain control home medication GI DVT prophylaxis PT/OT Plan for surgical debridement of lumbar spine Wednesday versus Wednesday depending on the OR availability and schedule
[2020-11-16] MEDS ORDERED: GABAPENTIN 300 MG CAP PO SCH (16:00)
[2020-11-16] MEDS ORDERED: 0.9% NACL WITH KCL 20 MEQ/L 1,000 ML IV SCH (16:00)
--- NOTE | 2020-11-16 17:14 | CT ---
EXAMINATION TYPE: CT lumbar spine wo con DATE OF EXAM: 11/16/2020 COMPARISON: MR scan today HISTORY: Post op pain. Surgical planning. CT DLP: 2580.3 mGycm Automated exposure control for dose reduction was used. Images were obtained from T10 to S2 vertebra with no contrast. The lumbar vertebra have normal alignment. There is narrowing of disc spaces throughout the lumbar sp ine and more severe at L3-4 and L4-5. There is posterior calcified disc herniation at L4-5. There is moderate spinal stenosis at L4-5 due to the disc herniation and ligamentum flavum thickening. There i s right side L5 laminectomy defect. There is some fat stranding in the subcutaneous tissues over the lower lumbar spine that is not entirely included on the exam. There are a few soft tissue air bubbles in the soft tissues posteriorly at the L2 level in the subcutaneous fat. There is some mild lucency on both sides of the L4-5 disc in the L4 and L5 vertebral bodies. IMPRESSION: Surgery at L5 level. Postsurgical changes posteriorly with soft tissue air bubbles and increased dens ity in the subcutaneous fat. L4-5 spinal stenosis. Small areas of lucency on both sides of the L4-5 disc that could relate to disc itis that is suggested by the MR scan today. No compression fracture.
[2020-11-16 17:25] VITALS: BP 141/97; PULSE 72; TEMP 97.8
[2020-11-16] MEDS ORDERED: KETOROLAC 15 MG/ML 1 ML VIAL IVP SCH (18:00)
[2020-11-16] MEDS ORDERED: DOCUSATE 100 MG CAP PO SCH (21:00)
[2020-11-16] MEDS ORDERED: PIPERACILLIN-TAZOBACTAM 3.375 GM in SODIUM CHLORIDE 0.9% 100 ML IVPB SCH (23:00)
[2020-11-17] MEDS ORDERED: VANCOMYCIN 2,000 MG in SODIUM CHLORIDE 0.9% 500 ML 500 ML IVPB SCH (05:00)
[2020-11-17] MEDS ORDERED: polyethylene glycoL 3350 17 GM POWD.PACK PO SCH (09:00)
--- NOTE | 2020-11-17 11:26 | P.PN ---
Progress Note - Text Progress Note Date: 11/17/20 I was informed last night 11/16/2020 over the phone by nursing that the patient has left AMA around 7:28 PM. She informed me that the patient was irritated as he was not getting his pain medications quick enough and stated that he could get home and treat his own pain. I had spoken with the patient extensively earlier in the day about his grave condition. The patient has a postoperative infection which has now changed into a osteomyelitis discitis of L4 5 with an epidural phlegmon. This is a surgical indication. While the patient was completely neurologically intact upon evaluation it was discussed with him at length at that time that he could deteriorate. The patient did have a previous decompression done in this area and so this may help however due to the infection could spread in his epidural space. We had discussed doing surgery Wednesday versus Wednesday per OR schedule. And at this time the patient is stable not septic and neurologically intact. It would be advantageous then for us to do a surgery on Wednesday which would be planned allow him to obtain IV antibiotics as well as an ID consult and be cleared for surgery while in the hospital. This was all discussed at length with the patient and he understood the nursing staff assures me that they reiterated this to the patient before he left AMA. And yet still decided to leave. My office will attempt to contact the patient as we still have him on the schedule for Wednesday. He does need surgical intervention or he risks further neurologic compromise infection and sepsis.
== END 2020-11-16 19:21 | disposition left against medical advice (07) | DRG 863 ==
LOC: EC 12:38 → 6NMEDSUR 13:14 → OBSVTOIN 15:33
PROVIDERS: ADMIT Orthopaedic Surgery; ATTEND Orthopaedic Surgery
DX: T81.40XA Infection following a procedure, unspecified, initial encounter (principal); T81.30XA Disruption of wound, unspecified, initial encounter; M46.26 Osteomyelitis of vertebra, lumbar region; I10 Essential (primary) hypertension; M46.46 Discitis, unspecified, lumbar region; Z20.822 Contact with and (suspected) exposure to COVID-19; K59.00 Constipation, unspecified; F17.200 Nicotine dependence, unspecified, uncomplicated; Z79.1 Long term (current) use of non-steroidal anti-inflammatories (NSAID); Z79.899 Other long term (current) drug therapy; Z86.61 Personal history of infections of the central nervous system; Z98.890 Other specified postprocedural states
CPT/HCPCS: 36415; 72131; 72158; 74018; 80053; 83605; 85025; 85652; 86140; 87040; 87070; 87205; 87635

== ENCOUNTER 2020-11-18 10:04 | Inpatient (IN) | payer BC ==
[2020-11-18] MEDS ORDERED: IBUPROFEN 600 MG TAB PO PRN (12:00)
--- NOTE | 2020-11-18 12:09 | P.HPOR ---
History of Present Illness H&P Date: 11/18/20 Chief Complaint: Back pain, lumbar wound dehiscence, infection 45-year-old male presents complaining of low back pain and purulent discharge from his wound. Patient previously underwent a revision lumbar laminectomy from L4 to S1 on 10/01/2020. He did fairly well after surgery and was recovered and went home. He is seen twice postoperatively and was having increasing postoperative pain but his incision was healing and he was doing fairly well with no subjective fevers chills or other issues. Over the past couple of weeks the patient has noted increasing pain in his low back as well as pain in his hips. He states it is like a bone pain. He also states that his back about 6 days after surgery he felt a new pop in his back and this increased his pain as well. He has been taking pain medications. He was seen in the office and started on an by mouth dose of Duricef for some minor wound issues which seem to clear. He presented today however to the emergency department with increasing pain and purulent drainage from the superior portion of his wound. He states he went to [facility] where they worked him up for some fluid on his abdomen that they did not find anything. The purulent drainage from his wound has only started over the past couple of days. He denies any fevers at home. He denies any chills at home. No shortness of breath or chest pain. He does state some numbness and tingling in his left foot is present after surgery. It does not seem to be increasing. He denies any bowel or bladder issues other than he is slightly constipated at this time due to the pain medications he is taking. He states no numbness or tingling in his general region and full control of his urinary and bowel. The patient left AMA from hospital on 11/16/20. He returned to office today with the same complaints and wanting treatment. He was directly admitted to hospital. ID and medicine consults placed. Review of Systems 14 points review of systems completed and as stated in HPI, all other systems reviewed are negative. Past Medical History Past Medical History: Hypertension Additional Past Medical History / Comment(s): HERNIATED DISCS WITH BACK PAIN RADIATING DOWN RIGHT LEG. History of Any Multi-Drug Resistant Organisms: None Reported Past Surgical History: Back Surgery, Orthopedic Surgery Additional Past Surgical History / Comment(s): PAIN CLINIC PROCEDURES, JEMMA ROTATOR CUFF REPAIR, laminectomy Past Anesthesia/Blood Transfusion Reactions: No Reported Reaction Past Psychological History: No Psychological Hx Reported Smoking Status: Current every day smoker Past Alcohol Use History: Occasional Additional Past Alcohol Use History / Comment(s): SMOKES 1 PPD, SMOKING SINCE 13 YEARS OLD Past Drug Use History: None Reported - Past Family History Mother Family Medical History: No Reported History Medications and Allergies Home Medications Medication Instructions Recorded Confirmed Type Meloxicam 15 mg PO DAILY PRN 12/07/17 11/18/20 History Atenolol [Tenormin] 100 mg PO DAILY 09/30/20 11/18/20 History Gabapentin [Neurontin] 300 - 600 mg PO DAILY@1400 PRN 09/30/20 11/18/20 History Tadalafil [Cialis] 20 mg PO DIRECTED PRN 09/30/20 11/18/20 History hydroCHLOROthiazide [Hydrodiuril] 25 mg PO DAILY 09/30/20 11/18/20 History Docusate [Colace] 100 mg PO DAILY PRN #20 capsule 10/02/20 11/18/20 Rx Ibuprofen [Motrin] 800 mg PO Q8H PRN #90 tab 10/02/20 11/18/20 Rx oxyCODONE-APAP 10-325MG [Percocet 1 - 2 tab PO Q4HR PRN 7 Days #56 10/02/20 11/18/20 Rx 10-325 mg] tab Gabapentin 600 mg PO BID@0600,2100 11/16/20 11/18/20 History Lidocaine 5% Patch [Lidoderm] 1 patch TRANSDERM DAILY PRN 11/16/20 11/18/20 History Na Phos,M-B/Na Phos,Di-Ba [Fleet 133 ml RECTAL DAILY PRN 11/16/20 11/18/20 History Adult] Sennosides/Docusate Sodium [Senna 1 tab PO BID PRN 11/16/20 11/18/20 History Plus 8.6-50 mg Softgel] bisacodyL [Dulcolax] 5 mg PO DAILY PRN 11/16/20 11/18/20 History methocarbamoL [Robaxin] 500 mg PO QID PRN 11/16/20 11/18/20 History Citalopram Hydrobromide [CeleXA] 20 mg PO DAILY 11/18/20 11/18/20 History Losartan Potassium 100 mg PO DAILY 11/18/20 11/18/20 History Allergies Allergy/AdvReac Type Severity Reaction Status Date / Time No Known Allergies Allergy Verified 11/18/20 11:41 Physical Examination Osteopathic Statement: *. No significant issues noted on an osteopathic structural exam other than those noted in the History and Physical/Consult. Patient is alert and oriented 3 appears well-nourished well-hydrated and is in no acute distress. He does not appear septic at this time. Patient's incision while well healed on the bottom has not portion at the very top of a pinhole that is currently exposing exudative material. When pushed on this material increases in drainage. There is no fluctuance felt. There is tenderness to palpation throughout the lumbar spine. There is no tennis palpation of the cervical or thoracic spine. There is no erythema surrounding the incision. There is no ecchymosis. He should not exhibits ability to ambulate around the room but this does increase his pain. He is able to walk without really any issues and without assistance. His gait is fairly normal at this time He has 5/5 strength in dorsiflexion and plantarflexion EHL FHL knee flexion knee extension hip flexion and hip extension bilaterally of his lower extremities He has 5/5 strength in shoulder abduction and elbow flexion and extension wrist flexion and extension intrinsic muscles of the hand bilaterally He is intact to light touch sensation in the L2 to S1 and C5 to T1 nerve distributions. He has a slight decrease in touch sensation in the S1 on the left-hand side. Palpable dorsalis pedis posterior tibial radial and ulnar pulses bilaterally Compartments soft and compressive Full painless range of motion of all joints of the upper extremity and lower extremity Negative Homans negative Babinskis and negative clonus bilaterally Cranial nerves II through XII are grossly intact. Results X-rays of the lumbar spine as well as MRI reviewed. MRI demonstrates at L4 5 1 reherniation of the L4 5 disc with thecal sac encroachment in this area. The L4 5 disc space also has increased uptake suggesting discitis osteomyelitis in this area.. There is likely epidural phlegmon which is noted posterior L4 L5.. L3 4 and L5-S1 disc spaces appear intact with no other areas of infective process. There is no discernible abscess noted deep to the fascia however there is postsurgical change and swelling in this area. Overall alignment is fairly well maintained still. There is disc collapse at L4 5 which is severe. No other fractures dislocations or lesions noted. CT exam shows osteomyelitis of L4-5 and L5-S1 with disc dessication, facet arthrosis and stenosis. No fractures or dislocaitons. Flattening of the lumbar lordosis. Assessment and Plan Assessment: 45-year-old male status post L4 to S1 decompression with epidural abscess formation L4 5 osteomyelitis discitis and epidural phlegmon neurologically st able Plan: -Admit -pain control -Start on IV Vanco, await ID recs. Will get cx in surgery. -Blood cultures -Trend labs -GI/DVT ppx -PT/OT -Medicine clearance -OR tomorrow 11/19/20 for L4-S1 revision decompression with evacuation of epidural phlegmon, L4-S1 interbody fusion with placement of abx cement and beads.
[2020-11-18] MEDS ORDERED: VANCOMYCIN IV PER PHARMACY 1 EACH MISC MISCELLANE PRN (12:12)
[2020-11-18] MEDS: CYCLOBENZAPRINE 10 MG TAB PO SCH ×2 (12:30→20:58)
[2020-11-18] MEDS: oxyCODONE-APAP 10-325MG 1 EACH TAB PO SCH ×3 (12:30→20:58)
[2020-11-18] MEDS: NICOTINE 21MG/24HR PATCH TRANSDERM SCH (12:30)
[2020-11-18] MEDS ORDERED: VANCOMYCIN 1,750 MG in SODIUM CHLORIDE 0.9% 500 ML 500 ML IVPB SCH (12:30)
[2020-11-18] MEDS: GABAPENTIN 300 MG CAP PO SCH ×2 (12:30→20:58)
[2020-11-18 12:37] LABS: Basophils # (A) 0.1 k/uL (0-0.2); Basophils % (A) 1 %; Eosinophils # (A) 0.2 k/uL (0-0.7); Eosinophils % (A) 1 %; HCT 43.2 % (39.0-53.0); HGB 14.9 gm/dL (13.0-17.5); Lymphocytes # (A) 2.6 k/uL (1.0-4.8); Lymphocytes % (A) 22 %; MCH 31.1 pg (25.0-35.0); MCHC 34.5 g/dL (31.0-37.0); MCV 90.2 fL (80.0-100.0); Mean Platelet Volume 7.4; Monocytes % (A) 8 %; Neutrophils # (A) 7.4 k/uL (1.3-7.7); Neutrophils % (A) 65 %; Platelet Count 244 k/uL (150-450); RBC 4.79 m/uL (4.30-5.90); RDW 13.4 % (11.5-15.5); WBC 11.5 k/uL (3.8-10.6)
[2020-11-18 12:43] LABS: African American GFR (CKD) >90 (>60 ml/min/1.73 sqM); Anion Gap 9 mmol/L; Blood Urea Nitrogen 16 mg/dL (9-20); Calcium 9.4 mg/dL (8.4-10.2); Carbon Dioxide 29 mmol/L (22-30); Chloride 97 mmol/L (98-107); Glucose 101 mg/dL (74-99); Non-African American GFR(CKD) >90 (>60 ml/min/1.73 sqM); Sodium 135 mmol/L (137-145)
[2020-11-18 12:56] LABS: C Reactive Protein 226.5 mg/L (<10.0); Potassium 3.3 mmol/L (3.5-5.1)
[2020-11-18] MEDS: HYDROmorphone 1 MG/ML 1 ML SYRINGE IVP PRN ×3 (13:07→22:53)
[2020-11-18] MEDS: 0.9% NACL WITH KCL 20 MEQ/L 1,000 ML IV SCH ×2 (13:07→22:49)
[2020-11-18] MEDS: AMPICILLIN-SULBACTAM 3 GM in SODIUM CHLORIDE 0.9% 100 ML IVPB SCH ×2 (13:07→18:19)
[2020-11-18] MEDS ORDERED: POTASSIUM CHLORIDE ER 20 MEQ TAB.ER PO STA (13:49)
[2020-11-18 15:40] LABS: Erythrocyte Sedimentation Rate 67 mm/hr (0-15)
--- NOTE | 2020-11-18 16:02 | P.CONS ---
History of Present Illness - Reason for Consult Consult date: 11/18/20 HTN Requesting physician: Abdirizak Jama - Chief Complaint back pain - History of Present Illness Patient is a 45-year-old male with a history of chronic low back pain status post L4 5 decompression with revision and microdiscectomy, right sided laminotomy with microdiscectomy L5-S1 on 10/01/2020, hypertension, and tobacco abuse who was sent in by Dr. Jama for direct admission due to osteomyelitis. Patient had been hospitalized here on 11/16 due to concerns for infection. During that hospital stay he had underwent an MRI of the spine which showed L4 5 discitis with osteomyelitis, epidural footman, and residual disc herniation as well as large phlegmon measuring 9 x 5 cm. During that hospital stay he ultimately left AGAINST MEDICAL ADVICE with less than 24-hour hospital stay. He continued to have worsening back pain and therefore was admitted by Dr. Palacios's in. He has been started on Unasyn and vancomycin. Infectious disease consult has been placed. Plan is for surgery 11/19. He had also been seen for his back pain at [facility] where he underwent a CT but they did not see any definitive process per patient. Patient seen and examined at bedside. He states he just received pain medication and is having some difficulty staying awake. Son is present. He reports that initially after his surgery his pain was getting better. However over the last 1-2 weeks his pain has been getting worse in his back and then down his right leg. He has had persistent left leg numbness after surgery. He denies any significant lower extremity weakness. He has been having issues with constipation. He denies any issues with bladder control. He denies any recent falls. He has not had any fevers or chills, no nausea or vomiting, no chest pain, no shortness of breath, and no syncope. Review of Systems Pertinent positives and negatives as discussed in HPI, a complete review of systems was performed and all other systems are negative. Past Medical History Past Medical History: Hypertension Additional Past Medical History / Comment(s): HERNIATED DISCS WITH BACK PAIN RADIATING DOWN RIGHT LEG. History of Any Multi-Drug Resistant Organisms: None Reported Past Surgical History: Back Surgery, Orthopedic Surgery Additional Past Surgical History / Comment(s): PAIN CLINIC PROCEDURES, JEMMA ROTATOR CUFF REPAIR, laminectomy Past Anesthesia/Blood Transfusion Reactions: No Reported Reaction Past Psychological History: No Psychological Hx Reported Smoking Status: Current every day smoker Past Alcohol Use History: Occasional Additional Past Alcohol Use History / Comment(s): SMOKES 1 PPD, SMOKING SINCE 13 YEARS OLD Past Drug Use History: None Reported Additional History: Has been needing a cane and walker since surgery - Past Family History Mother Family Medical History: No Reported History Father Additional Family Medical History / Comment(s): heart disease Medications and Allergies Home Medications Medication Instructions Recorded Confirmed Type Meloxicam 15 mg PO DAILY PRN 12/07/17 11/18/20 History Atenolol [Tenormin] 100 mg PO DAILY 09/30/20 11/18/20 History Gabapentin [Neurontin] 300 - 600 mg PO DAILY@1400 PRN 09/30/20 11/18/20 History Tadalafil [Cialis] 20 mg PO DIRECTED PRN 09/30/20 11/18/20 History hydroCHLOROthiazide [Hydrodiuril] 25 mg PO DAILY 09/30/20 11/18/20 History Docusate [Colace] 100 mg PO DAILY PRN #20 capsule 10/02/20 11/18/20 Rx Ibuprofen [Motrin] 800 mg PO Q8H PRN #90 tab 10/02/20 11/18/20 Rx oxyCODONE-APAP 10-325MG [Percocet 1 - 2 tab PO Q4HR PRN 7 Days #56 10/02/20 11/18/20 Rx 10-325 mg] tab Gabapentin 600 mg PO BID@0600,2100 11/16/20 11/18/20 History Lidocaine 5% Patch [Lidoderm] 1 patch TRANSDERM DAILY PRN 11/16/20 11/18/20 History Na Phos,M-B/Na Phos,Di-Ba [Fleet 133 ml RECTAL DAILY PRN 11/16/20 11/18/20 History Adult] Sennosides/Docusate Sodium [Senna 1 tab PO BID PRN 11/16/20 11/18/20 History Plus 8.6-50 mg Softgel] bisacodyL [Dulcolax] 5 mg PO DAILY PRN 11/16/20 11/18/20 History methocarbamoL [Robaxin] 500 mg PO QID PRN 11/16/20 11/18/20 History Citalopram Hydrobromide [CeleXA] 20 mg PO DAILY 11/18/20 11/18/20 History Losartan Potassium 100 mg PO DAILY 11/18/20 11/18/20 History Allergies Allergy/AdvReac Type Severity Reaction Status Date / Time No Known Allergies Allergy Verified 11/18/20 11:41 Physical Exam Osteopathic Statement: *. No significant issues noted on an osteopathic structural exam other than those noted in the History and Physical/Consult. Vitals: Vital Signs Temp Pulse Resp BP Pulse Ox 11/18/20 14:00 98.5 F 62 18 116/76 94 L 11/18/20 11:01 98.2 F 80 20 117/79 97 Intake and Output 11/18/20 11/18/20 11/18/20 06:59 14:59 22:59 Other: Weight 103.1 kg General: Ill appearing, no distress, appears at stated age, obese Derm: warm, dry Head: atraumatic, normocephalic, symmetric Eyes: EOMI, no lid lag, anicteric sclera, pupils equal round reactive to light ENT: Nose and ears atraumatic, no thrush, no pharyngeal erythema Neck: No thyromegaly, no cervical lymphadenopathy, trachea midline, supple Mouth: no lip lesion, mucus membranes moist Cardiovascular: S1S2 reg, no murmur, positive posterior tibial pulse bilateral, no edema, capillary refill less than 2 seconds Lungs: clear to ascultation bilateral, no ronchi, no rales, no wheeze, no accessory muscle use Abdominal: soft, nontender to palpation, no guarding, no appreciable organomegaly, normal bowel sounds Ext: no gross muscle atrophy, muscle strength muscle strength 5 out of 5 in all 4 extremities, no contractures Neuro: CN II-XI grossly intact, light touch intact all 4 extremities, finger to nose within normal limits, Psych: Somnolent but awakes to voice, oriented, appropriate affect Results CBC & Chem 7: 11/18/20 12:10 11/18/20 12:10 Labs: Abnormal Lab Results - Last 24 Hours (Table) 11/18/20 11/18/20 Range/Units 12:10 12:10 WBC 11.5 H (3.8-10.6) k/uL ESR 67 H (0-15) mm/hr Sodium 135 L (137-145) mmol/L Potassium 3.3 L (3.5-5.1) mmol/L Chloride 97 L (98-107) mmol/L Glucose 101 H (74-99) mg/dL C-Reactive Protein 226.5 H (<10.0) mg/L Comments: MRI abdomen and pelvis reviewed Assessment and Plan Assessment: 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 -Continue with Unasyn, Zosyn -ID consultation. Patient will likely need PICC line on discharge for 6-12 weeks of IV antibiotics. Repeat blood culture ordered by orthopedic surgery and is pending. Blood cultures from 11/16 are negative for 48 hours -Plan for surgical intervention in a.m. per orthospine - Patient medically optimized for urgent surgery: NSQIP below average if non emergent and average risk if emergent for and serious complication. -Pain control: Patient is taking Percocet, Robaxin, Neurontin at home for pain control -Follow CRP -Wound culture from last hospital stay did not grow any organisms Hypertension, controlled -Hold hydrochlorothiazide secondary to anticipated fluid shift -Continue with losartan and atenolol -Follow blood pressures Constipation -Continue with Senokot and add MiraLAX Hypokalemia -Replace and recheck in a.m. Tobacco abuse -Cessation -Nicotine replacement Obesity with BMI 32.6 -Outpatient structured weight loss Thank you for allowing us to participate in the care of this pleasant patient. Do not hesitate to contact us with questions. Someone can be reached from the [facility] hospitalist group all hours of the day at [phone] or via perfect serve.
--- NOTE | 2020-11-18 18:14 | XR ---
EXAMINATION TYPE: XR chest 2V DATE OF EXAM: 11/18/2020 COMPARISON: 09/04/2020 HISTORY: Preop back surgery TECHNIQUE: FINDINGS: Heart and mediastinum are normal. Lungs are clear. Diaphragm is normal. Bony thorax is inta ct. IMPRESSION: Normal chest. No change.
--- NOTE | 2020-11-18 22:26 | CONS ---
CONSULTATION DATE OF SERVICE: 11/18/2020 REASON FOR CONSULTATION: Lumbar abscess. HISTORY OF PRESENT ILLNESS: The patient is a 45-year-old male who is status post lumbar laminectomy from L4-S1 on October 01, 2020. The patient did well after surgery. However, over the last few days to a week, the patient has been complaining of increasing pain to his lumbar incision area. The patient denies any history of any trauma describing the pain to be more of a dull aching to sharp intensity almost 7 to 8/10 and no radiation. The patient also noticed to have slight drainage from the area. The patient was admitted to hospital on November 16, 2020. At that time, the patient did have an MRI of the lumbosacral spine did show an area of abscess collection. Local cultures obtained. Started on antibiotics. However the patient left AMA subsequently for not being able to get his pain medication. The patient was seen by the surgeon in the office today and has been admitted directly to the hospital with planned surgery tomorrow. The patient was started on Unasyn and vancomycin. Infectious Disease was consulted for further management of antibiotic therapy. Since admitted to the hospital, the patient has been afebrile. The patient did have white count of 11.5. Sedimentation rate of 67 and creatinine is 2. The CRP is 28-26.5. REVIEW OF SYSTEMS: Positive points have been mentioned in HPI. Rest of the systems are negative. PAST MEDICAL HISTORY: Significant for hypertension, chronic back pain, herniated disc. PAST SURGICAL HISTORY: Bilateral rotator cuff repair, laminectomy. SOCIAL HISTORY: Current everyday smoker. Occasionally drinks. No drug use. FAMILY HISTORY: No pertinent findings noticed. ALLERGIES: No known drug allergies. MEDICATIONS: The patient is currently on Unasyn 3 grams q.6 hours. He is on Neurontin, Dilaudid, Motrin, nicotine patch, vancomycin pharmacy to dose. PHYSICAL EXAMINATION: Blood pressure 116/76, pulse of 72, temperature 98.5. He is 94% on room air. General description is a middle-aged male lying in bed in no distress. No tachypnea or accessory muscles of respiration use. HEENT: Examination shows no pallor or scleral icterus. Oral mucous membranes dry. NECK: Trachea central. No thyromegaly. Lungs unlabored breathing, clear to auscultation anteriorly with crackles. Heart S1, S2. Regular rate. ABDOMEN: Soft. No tenderness. No guarding. No rigidity. Examination of lumbar spine: Incision is currently healed. Minimal swelling and tenderness. No drainage noted. EXTREMITIES: No edema of the feet. NEUROLOGICAL: Patient is awake, alert, oriented times three. Mood and affect normal. LABS: Hemoglobin 14, white count 11.5. BUN of 16, creatinine 0.78. DIAGNOSTIC IMPRESSION AND PLAN: Patient with lumbar surgical site infection with underlying abscess in this patient status post lumbar laminectomy on October 01. He recently did have some superficial wound culture which came back positive for a normal skin renan. Scheduled for I&D tomorrow and deep cultures. PLAN: 1. We will keep the patient on vancomycin pharmacy to dose target of 15 . 2. Await deep cultures. 3. Blood cultures. 4. We will follow on clinical condition and culture to further adjust medication if needed. Thank you for this consultation. Will follow this patient along with you. MMODL / IJN: [id number] /
[2020-11-18] MEDS ORDERED: bisacodyL 10 MG SUPP RECTAL ONE (22:41)
[2020-11-18] MEDS: VANCOMYCIN 1,750 MG in SODIUM CHLORIDE 0.9% 500 ML 500 ML IVPB SCH (22:41)
[2020-11-19] MEDS: oxyCODONE-APAP 10-325MG 1 EACH TAB PO SCH ×6 (00:42→21:17)
[2020-11-19] MEDS: HYDROmorphone 1 MG/ML 1 ML SYRINGE IVP PRN ×3 (02:18→07:57)
[2020-11-19] MEDS: AMPICILLIN-SULBACTAM 3 GM in SODIUM CHLORIDE 0.9% 100 ML IVPB SCH ×4 (02:19→22:35)
[2020-11-19] MEDS: VANCOMYCIN 1,750 MG in SODIUM CHLORIDE 0.9% 500 ML 500 ML IVPB SCH ×3 (05:09→23:30)
[2020-11-19] MEDS: GABAPENTIN 300 MG CAP PO SCH ×3 (08:02→22:35)
[2020-11-19] MEDS: CYCLOBENZAPRINE 10 MG TAB PO SCH ×3 (08:03→22:34)
[2020-11-19] MEDS: NICOTINE 21MG/24HR PATCH TRANSDERM SCH (08:05)
[2020-11-19 09:30] LABS: Basophils # (A) 0.04 X 10*3/uL (0.00-0.10); Basophils % (A) 0.4 %; Eosinophils # (A) 0.21 X 10*3/uL (0.04-0.35); Eosinophils % (A) 2.1 %; HCT 41.7 % (39.6-50.0); HGB 13.9 g/dL (13.0-17.0); Lymphocytes # (A) 2.21 X 10*3/uL (0.90-5.00); Lymphocytes % (A) 22.2 %; MCH 30.4 pg (27.0-32.0); MCHC 33.3 g/dL (32.0-37.0); MCV 91.2 fL (80.0-97.0); Mean Platelet Volume 10.5 fL (9.5-12.2); Monocytes % (A) 11.1 %; Neutrophils # (A) 6.36 X 10*3/uL (1.80-7.70); Platelet Count 248 X 10*3/uL (140-440); RBC 4.57 X 10*6/uL (4.40-5.60); RDW 13.4 % (11.5-14.5); WBC 9.94 X 10*3/uL (4.50-10.00)
[2020-11-19 09:47] LABS: African American GFR (CKD) 131.2 (60.0-200.0); Anion Gap 6.8 mmol/L (4.00-12.00); Calcium 8.8 mg/dL (8.7-10.3); Carbon Dioxide 32.2 mmol/L (21.6-31.8); Non-African American GFR(CKD) 113.2 (60.0-200.0); Potassium 3.7 mmol/L (3.5-5.5)
[2020-11-19] MEDS: atenoloL 50 MG TAB PO SCH (10:04)
[2020-11-19] MEDS ORDERED: LACTATED RINGERS 1,000 ML IV ONE ×7 (11:28→19:40)
[2020-11-19 11:33] LABS: Glucose,Whole Blood 106 mg/dL (75-99)
[2020-11-19] MEDS ORDERED: ONDANSETRON 4 MG/2 ML VIAL ONE (11:34)
[2020-11-19] MEDS ORDERED: ONDANSETRON 4 MG/2 ML VIAL IVP ONE (11:40)
[2020-11-19] MEDS ORDERED: MIDAZOLAM 2 MG/2 ML VIAL IVP ONE ×2 (11:51→12:09)
[2020-11-19] MEDS ORDERED: fentaNYL (PF) 50 MCG/ML 2 ML AMP IVP ONE (11:51)
[2020-11-19] MEDS ORDERED: SODIUM CHLORIDE 0.9% 1,000 ML IV ONE ×2 (11:59→12:57)
[2020-11-19] MEDS: 0.9% NACL WITH KCL 20 MEQ/L 1,000 ML IV SCH ×2 (12:03→21:18)
[2020-11-19] MEDS: polyethylene glycoL 3350 17 GM POWD.PACK PO SCH (12:04)
--- NOTE | 2020-11-19 12:09 | P.PN ---
Subjective Progress Note Date: 11/19/20 Principal diagnosis: L4 5 and L5-S1 osteo-discitis with epidural phlegmon status post L4 to S1 revision decompression Patient seen and examined this morning in preop. He is doing okay is having a lot of pain and he denies any regular neurologic symptoms at this time. He denies any weakness he denies any bowel or bladder issues. He states continued drainage from his wound. States increasing pain in intense pain in his low back. Eyes any fevers chills or some breath or chest pain at this time. Objective - Vital Signs Vital signs: Vital Signs Temp 97.9 F 11/19/20 08:00 Pulse 73 11/19/20 11:22 Resp 16 11/19/20 11:22 BP 116/68 11/19/20 11:22 Pulse Ox 93 L 11/19/20 11:22 Intake & Output 11/18/20 11/19/20 11/19/20 18:59 06:59 18:59 Weight 103.1 kg Other: # Voids 3 - Exam PHYSICAL EXAMINATION: Vitals: Stable at this time General: Awake, alert, appropriate for age, in no acute distress. HEENT: No unusual neck masses around region of lateral neck triangle, thyroid, supraclavicular groove. Heart: Regular rate and rhythm, normal S1, S2 and no murmur/gallop. Lungs: Clear to auscultation bilaterally with no use of accessory muscles. Extremities: Skin warm and dry without no acute lesions, coloration, temperature, skin intact, no tenderness or erythema. Integument: Hairy patches: Absent Dorsal skin dimples: Absent Cafe au lait spots: Absent Surgical incisions: Posterior midline incision is healing at the bottom however there is an area at the top pinhole size that still producing exaggerated material. There is no erythema noted. There is no fluctuance. Palpation: Please see Pain drawing on Intake sheet for further detail. (Tenderness = T, Nontender = NT, Swelling = S, Ecchymosis = E) Findings on Midline and paraspinal palpation and percussion: Cervical: NT Thoracic: NT Lumbar: Tennis to palpation ecchymosis and swelling Sacral: NT Special findings: Pain with ballottement POSTURAL and MUSCULO-SKELETAL EVALUATION: Coronal Balance: Neutral Recumbent testing: Patient can lay flat on back Sagittal Balance: Neutral Shoulder Profile: Level Pelvic Girdle: Level Neck ROM: Unrestricted in six directions Lumbar ROM: Unrestricted in six directions Shoulder ROM: Symmetric in abduction, ER/IR Hip ROM: Symmetric in abduction, adduction, ER/IR Knee ROM: Symmetric and intact in Flexion / extension Hands: Normal appearing structure L and R Feet: Normal appearing structure L and R VASCULAR STATUS : Wrist Pulses: 2/4 bilateral radial and ulnar Pedal Pulses: 2/4 bilateral DP and PT Color: Normal Edema: None NEUROLOGIC EXAMINATION: Mental Status: Awake and alert, fully oriented, with normal attention, concentration and memory, and fluent, appropriate speech. Cranial Nerves: I: Olfactory not tested. II: Visual acuity normal, no visual field deficit noted with confrontation. III,IV: Normal pupillary reflexes & intact extraocular movements without nystagmus. V,: Intact symmetrical facial sensation. VII: Intact symmetrical facial motor movement VIII: Hearing intact. IX,X: Intact gag, swallow, & normal voice. XI: Sternocleidomastoid, trapezius function intact. XII: Tongue midline with normal movements. Special Tests: L'hermitte's Sign: Absent Spurling'Sign: Absent Bilateral Cubital percussion test: Absent Bilateral Karolina-Tinel sign - Carpal region: Absent Bilateral Straight Leg Raising: Absent Bilateral Motor Exam (0-5/5, N/T) STRENGTH UPPER EXTREMITY Shoulder Abd (Not part of DONNY Motor score): RIGHT 5 LEFT 5 Elbow Flexors: RIGHT 5 LEFT 5 Elbow Extensor: RIGHT 5 LEFT 5 Wrrist Dorsiflexors: RIGHT 5 LEFT 5 Finger Abductor: RIGHT 5 LEFT 5 Search Lead: RIGHT 5 LEFT 5 LOWER EXTREMITY Hip Flexor (Not part of DONNY Motor Score): RIGHT 5 LEFT 5 Knee Flexor: RIGHT 5 LEFT 5 Knee Extensor: RIGHT 5 LEFT 5 Ankle Dorsiflexion: RIGHT 5 LEFT 5 Ankle Plantarflexion: RIGHT 5 LEFT 5 EHL: RIGHT 5 LEFT 5 FHL: RIGHT 5 LEFT 5 DONNY Motor Score: RIGHT 50/50 LEFT 50/50 REFLEXES Biecp: RIGHT 2 LEFT 2 Tricep: RIGHT 2 LEFT 2 Brachioradialis: RIGHT 2 LEFT 2 Patellar: RIGHT 2 LEFT 2 Achilles: RIGHT 2 LEFT 2 Pathological Reflexes Zavala's: RIGHT Absent LEFT Absent Babinski: RIGHT Absent LEFT Absent Clonus: RIGHT None LEFT None SENSORY Joint Position: Intact bilaterally Vibration Intact bilaterally Pain and LT sense Intact C5-T1 and L2-S1 Dermatomal deficit None Gait and Functional Evaluation: Ambulatory aids: Walker or cane at this time Romberg's test: Intact bilaterally. Toe walk/ heel walk / heel-toe walk intact while maintaining satisfactory balance. Squatting and straightening out without assistance to a minimum of 60 degrees knee flexion Single leg stance: intact/ Trendelenburg sign negative bilaterally Hand and finger dexterity intact bilaterally. Disdiadochokinesis examination negative bilaterally. - Constitutional General appearance: Present: morbidly obese - Labs CBC & Chem 7: 11/19/20 06:05 11/19/20 06:05 Labs: Abnormal Lab Results - Last 24 Hours (Table) 11/18/20 11/18/20 11/19/20 Range/Units 12:10 12:10 06:05 WBC 11.5 H (3.8-10.6) k/uL Monocytes # 1.10 H (0.20-1.00) X 10*3/uL ESR 67 H (0-15) mm/hr Sodium 135 L (137-145) mmol/L Potassium 3.3 L (3.5-5.1) mmol/L Chloride 97 L (98-107) mmol/L Carbon Dioxide (21.6-31.8) mmol/L Glucose 101 H (74-99) mg/dL POC Glucose (mg/dL) (75-99) mg/dL C-Reactive Protein 226.5 H (<10.0) mg/L 11/19/20 11/19/20 Range/Units 06:05 11:31 WBC (3.8-10.6) k/uL Monocytes # (0.20-1.00) X 10*3/uL ESR (0-15) mm/hr Sodium (137-145) mmol/L Potassium (3.5-5.1) mmol/L Chloride (98-107) mmol/L Carbon Dioxide 32.2 H (21.6-31.8) mmol/L Glucose (74-99) mg/dL POC Glucose (mg/dL) 106 H (75-99) mg/dL C-Reactive Protein (<10.0) mg/L Assessment and Plan Assessment: 45-year-old male status post L4 to S1 decompression with epidural abscess formation L4 S1 osteomyelitis discitis and epidural phlegmon neurologically stable Plan: Spine Surgery Risk Review Buzz Mukherjee is a 45-year-old male presenting for evaluation of low back pain exaggerated discharge from his previous wound. It was my pleasure to have seen and examined Buzz Mukherjee. In our visit today we have had a chance to go over subjective complaints, phy sical examination findings and treatments including the natural course history without intervention and various interventional options. The patients imaging demonstrates osteomyelitis discitis with epidural phlegmon formation and L4 to S1. On physical exam, Buzz Mukherjee demonstrates severe back pain neurologically intact. I have explained to the patient that as their condition progresses it will cause further neurological deficits and eventual paralysis. Based on the patients imaging, physical exam, and the rapid progression and disabling nature of their symptoms, at this time I recommend surgery in the form or a: Decompression revision posterior stabilized fusion and interbody fusion with cement spacer placement L4 to S1. I discussed the risk and benefits of this procedure at length with Buzz Mukherjee. The patient son and girlfriend agreed to considered pursuing the procedure abovementioned. Prior to surgery, she should follow up with her PCP (Cardio, ID, IM etc) for clearance. Questions were invited and answered, and the patient wishes to proceed as outlined below. Currently, I am recommendin. Incision and drainage with irrigation and debridement L4 to S1 with interbody fusion L4 to S1 and posterior lateral fusion L4 to S1 with antibiotic bead placement and antibiotic cement spacer placement possible wound VAC placement 2. Follow up with PCP for surgical clearance 3. Review of surgical risks and benefits as well as an educational packet on the proposed surgical procedure. Risks: All surgical procedures come with inherent risks, including those related to positioning, anesthesia, intraoperative findings, and postoperative compl ications. It is important to understand that surgery does not come with any guarantee of a successful outcome as complications and adverse events are always possible. The patient was given a handout in office today discussing the surgical procedure and risks associated with the intervention, both of which were discussed with the patient. These risks include but are not limited to the following: * Experiencing same, different or even worse symptoms in back, neck, arms, or legs compared to before surgery. * Requiring further surgery or other forms of treatment presently or at some time in the future at same or other levels of the intended spine surgery. * On an extreme but fortunately relatively rare basis severe complication such as blindness, stroke, heart attack, temporary and/or permanent nerve injury, paralysis, coma, or may occur, sometimes without known expla nation. * Surgical complications may include but are not limited to risk of infection, fluid accumulation in the surgical dissection site, including a seroma or hematoma, that requires additional surgery, wound drainage, bleeding, new numbness or weakness, vision changes/loss, spinal fluid leakage, non-healing and/or infected incision, headaches, difficulty or inability to swallow, hoarseness, hemopneumothorax, pneumothorax, impotence, retrograde ejaculation, vaginal dryness; injury to nerves, spinal cord, blood vessels, lymphatics or other vital organs (i.e., bowel injury, injury to the great vessels); heterotopic bone formation; complications related to the hardware such as screws, rods, cages including misplaced hardware, device failure, instrumentation at the wrong spine level, hardware fracture/breakage, or hardware loosening; vertebral failure of the spinal column above or below the newly placed hardware; retained surgical instrumentations or devices and the need for further surgery. * Medical risks of the planned spine surgery include but are not limited to generalized Infections to the whole body or local areas outside of the surgical site (sepsis), heart attack, bleeding, anaphylaxis, meningitis, seizure, epilepsy, hearing loss, burn pacheco, laceration of the head or other areas of the body, bruising, hypersensitivity of the skin, bladder over distension; allergic reaction; shoulder injury related to positioning; fat, blood and air clots to other areas of the body like heart, lungs, brain; failure of internal organs such as lungs, kidneys, liver and excessive bleeding. If blood transfusions are necessary, note that transfusions may cause intolerance reactions such as anaphylaxis or other complex reactions. * Despite best efforts, the results of spine surgery might not heal in terms of bone, soft tissues such as skin, fascia, ligaments, and joints. Additionally, in order to achieve best possible results, spine surgery may be carried out beyond the initially planned levels and involve decompression, fusion including insertion of hardware at levels other than the original intended area of surgical interest change some portions of the procedure in order to ensure the best possible outcomes. * With spine surgery and spinal fusion, there are different off label uses of instrumentation (devices, implants and hardware) as well as biological sub stances (bone morphogenic proteins, demineralized bone matrix) as well as using extra bone from allograft sources (i.e. cadaver bone) or autograft (iliac crest bone, ribs, or the spine itself). The patient has been given information about these practices and their inherent risks and benefits. * [facility] is an educational center that serves as a training facility for neurosurgical and orthopedic spine residents and fellows. Residents are physicians who are completing their surgical intensive training following medical school. They assist in the operating room with direct supervision of the attending surgeons. [place] are surgeons who have completed their training and eligible for board certification. They have opted for an elective year of more specialized training in their field. They assist in the operating room under the supervision of the attending surgeons. Physician assistants are medically trained surgical providers who function in the outpatient, inpatient, and operating room setting under the direct supervision of the attending surgeon. * [facility] has multiple operating rooms with single and overlapping rooms running daily. They currently function under the required guidelines as produced by the [facility] Finance Committee with regards to the overlapping rooms and will continue to comply with changes to this policy as they occur. The requirements include and are complied with as follows: (1) the critical portions of the overlapping rooms will not occur at the same time, (2) the attending physician will be physically present during the critical portions of the procedure and immediately available during the entire case, and (3) a back-up attending is designated should the primary attending not be immediately available. The patient has had a chance to review all the listed information, has been given print outs detailing this information, and has had all his/her questions answered to their satisfaction. It was my pleasure to have seen and examined Buzz Mukherjee. In our visit today we have had a chance to go over my understanding of our patient's current condition, the natural course history without intervention and various interventional options. Questions were invited and answered, and the patient wi shes to proceed as outlined above. I have seen and examined the patient for 25 minutes and we have spent more than 50% of the time in repeat and detailed counseling about the patient's condition, its natural course history with out and as much as can be predicted with surgery and re-review of various surgical treatment options. In conclusion, Buzz Mukherjee and his son and girlfriend requested we proceed with the above suggested surgery and are willing to accept risks and limitations of the suggested surgery as nature of the disease process and our best attempts at treatment for the condition. Thank you again for allowing us to be part of your patient's care. Please don't hesitate to contact me if you have any further questions. Signed and authenticated by: Abdirizak French [facility] [address], [address] [address]
[2020-11-19] MEDS ORDERED: SUCCINYLCHOLINE CHLORIDE VIAL 200 MG/10 ML VIAL IV ONE (12:45)
[2020-11-19] MEDS ORDERED: KETOROLAC 15 MG/ML 1 ML VIAL ONE (12:45)
[2020-11-19] MEDS ORDERED: PHENYLEPHRINE-0.9% NACL SYG 1,000 MCG/10 ML SYRINGE ONE (12:45)
[2020-11-19] MEDS ORDERED: LIDOCAINE 1% INJ 10MG/ML (20 ML MDV) ONE (12:45)
[2020-11-19] MEDS ORDERED: TRANEXAMIC ACID 1,000 MG/10 ML VIAL ONE (12:45)
[2020-11-19] MEDS ORDERED: PROPOFOL 10 MG/ML 20 ML VIAL IV ONE (12:45)
[2020-11-19] MEDS ORDERED: ROCURONIUM 10 MG/ML (10 ML VIAL) IV ONE (12:45)
[2020-11-19] MEDS ORDERED: ALBUMIN HUMAN 5% (12.5gm) 250 ML BOTTLE IVPB ONE (12:45)
[2020-11-19] MEDS ORDERED: SODIUM CHLORIDE 0.9% 100 ML BAG ONE (12:45)
[2020-11-19] MEDS ORDERED: ePHEDrine SULFATE/0.9% NACL/PF 50 MG/5 ML SYRINGE IV ONE (12:45)
[2020-11-19] MEDS ORDERED: KETAMINE 10 MG/ML 20 ML VIAL ONE (12:45)
[2020-11-19] MEDS ORDERED: fentaNYL (PF) 50 MCG/ML 2 ML AMP ONE (12:45)
--- NOTE | 2020-11-19 13:12 | XR ---
EXAMINATION TYPE: XR chest 1V confirm line plcoh DATE OF EXAM: 11/19/2020 COMPARISON: November 18, 2020 HISTORY: Chest pain TECHNIQUE: Single frontal view of the chest is obtained. FINDINGS: Examination is limited by the degree of inspiration. Right IJ central venous line demonstrates its di stal tip within the right atrium. No evidence for pneumothorax. Lung markings are prominent. Cardiac silhouette appears prominent as well. IMPRESSION: 1. Central venous line as noted.
--- NOTE | 2020-11-19 13:14 | P.PN ---
Subjective Progress Note Date: 11/19/20 (delayed charting seen at 0945) Principal diagnosis: back pain Patient is a 45-year-old male with a history of chronic low back pain status post L4 5 decompression with revision and microdiscectomy, right sided laminotomy with microdiscectomy L5-S1 on 10/01/2020, hypertension, and tobacco abuse who was sent in by Dr. Jama for direct admission due to osteomyelitis. Patient had been hospitalized here on 11/16 due to concerns for infection. During that hospital stay he had underwent an MRI of the spine which showed L4 5 discitis with osteomyelitis, residual disc herniation as well as large phlegmon measuring 9 x 5 cm. During that hospital stay he ultimately left AGAINST MEDICAL ADVICE with a less than 24-hour hospital stay. He had also been seen for his back pain at [facility] where he underwent a CT but they did not see any definitive process per patient. He continued to have worsening back pain and therefore was admitted by Dr. Jama. He was started on Unasyn and vancomycin. Infectious disease as consulted and agreed with current antibiotics. Plan is for surgery 11/19. Patient seen and examined at bedside. He again states that he is having severe back pain is unbearable however he is sleeping on into the room and falls asleep multiple times throughout our conversation. He denies any nausea or vomiting. He reports some difficulty with urination and suprapubic pain. He denies any chest pain or shortness of breath. General: non toxic, mild distress due to pain, appears at stated age Derm: warm, dry Head: atraumatic, normocephalic, symmetric Eyes: EOMI, no lid lag, anicteric sclera Mouth: no lip lesion, mucus membranes moist Cardiovascular: S1S2 reg, no murmur, positive posterior tibial pulse bilateral, Lungs: CTA bilateral, no rhonchi, no rales , no accessory muscle use Abdominal: soft, +tender to palpation RLQ and LLQ, no guarding, no appreciable organomegaly Ext: no gross muscle atrophy, no edema, no contractures Neuro: CN II-XI grossly intact, no focal neuro deficits Psych: Alert, oriented, appropriate affect 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 -Continue with Unasyn, Zosyn -ID consultation. Patient will likely need PICC line on discharge for 6-12 weeks of IV antibiotics. Repeat blood culture ordered by orthopedic surgery and is pending. Blood cultures from 11/16 are negative for 48 hours -Plan for surgical intervention 11/18 - Patient medically optimized for urgent surgery: NSQIP below average if non emergent and average risk if emergent for and serious complication. -Pain control: Patient is taking Percocet, Robaxin, Neurontin at home for pain control -Follow CRP -Wound culture from last hospital sat rare skin renan, await repeat cultures Hypertension, controlled -Hold hydrochlorothiazide secondary to anticipated fluid shift -Continue with losartan and atenolol -Follow blood pressures Constipation -Continue with Senokot and MiraLAX Tobacco abuse -Cessation -Nicotine replacement Obesity with BMI 32.6 -Outpatient structured weight loss Hypokalemia, resolved Thank you for allowing us to participate in the care of this pleasant patient. Do not hesitate to contact us with questions. Someone can be reached from the [facility] hospitalist group all hours of the day at [phone] or via [employer]. Objective - Vital Signs Vital signs: Vital Signs Temp 97.9 F 11/19/20 08:00 Pulse 60 11/19/20 12:35 Resp 16 11/19/20 12:35 BP 137/88 11/19/20 12:35 Pulse Ox 97 11/19/20 12:35 Intake & Output 11/18/20 11/19/20 11/19/20 18:59 06:59 18:59 Intake Total 400 Balance 400 Weight 103.1 kg Intake: IV 400 Other: # Voids 3 - Labs CBC & Chem 7: 11/19/20 06:05 11/19/20 06:05 Labs: Abnormal Lab Results - Last 24 Hours (Table) 11/18/20 11/19/20 11/19/20 Range/Units 12:10 06:05 06:05 Monocytes # 1.10 H (0.20-1.00) X 10*3/uL ESR 67 H (0-15) mm/hr Carbon Dioxide 32.2 H (21.6-31.8) mmol/L POC Glucose (mg/dL) (75-99) mg/dL 11/19/20 Range/Units 11:31 Monocytes # (0.20-1.00) X 10*3/uL ESR (0-15) mm/hr Carbon Dioxide (21.6-31.8) mmol/L POC Glucose (mg/dL) 106 H (75-99) mg/dL
[2020-11-19] MEDS ORDERED: TRANEXAMIC ACID 1,000 MG in SODIUM CHLORIDE 0.9% 100 ML IVPB ONE ×3 (13:28→19:14)
[2020-11-19] MEDS ORDERED: SODIUM CHLORIDE 0.9% 100 ML with ceFAZolin 2,000 MG IV ONE ×4 (13:45→17:44)
--- NOTE | 2020-11-19 13:47 | PN ---
PROGRESS NOTE DATE OF SERVICE: 11/19/2020 REASON FOR FOLLOWUP: Lumbosacral spine abscess. INTERVAL HISTORY: The patient is currently afebrile. The patient is scheduled for drainage of the abscess this afternoon by Surgery. The patient is still complaining of significant pain to the sacral area. No radiation down the leg. No chest pain, shortness of breath or cough. PHYSICAL EXAMINATION: Blood pressure 116/68 with a pulse of 73, temperature 97.9. He is 97% on 2 L nasal cannula. General description is a middle-aged male lying in bed in no distress. RESPIRATORY SYSTEM: Unlabored breathing, clear to auscultation anteriorly. HEART: S1, S2. Regular rate and rhythm. ABDOMEN: Soft, mildly distended. No guarding or rigidity. LABS: White count normalized to 9.94. DIAGNOSTIC IMPRESSION AND PLAN: Patient with lumbosacral spine abscess. Waiting for surgical drainage, deep cultures and will need outpatient IV antibiotic therapy depending upon the culture report. Continue supportive care. MMODL / IJN: [id number] /
[2020-11-19] MEDS ORDERED: VANCOMYCIN 1,000 MG VIAL MISCELLANE ONE ×2 (14:16)
[2020-11-19] MEDS ORDERED: THROMBIN (BOVINE) 5,000 UNIT VIAL TOPICAL ONE (14:17)
[2020-11-19] MEDS ORDERED: BUPIVACAINE (PF) 0.5% 30 ML VIAL SQ ONE (14:17)
[2020-11-19] MEDS ORDERED: GELATIN SPONGE,ABSORB (LARGE) 1 EACH SPONGE TOPICAL ONE (14:17)
[2020-11-19] MEDS ORDERED: TOBRAMYCIN SULFATE 1.2 GM VIAL MISCELLANE ONE ×2 (14:18)
[2020-11-19] MEDS ORDERED: ceFAZolin 3,000 MG in SODIUM CHLORIDE 0.9% IRRIGATIO 3,000 ML IRRIGATION ONE ×4 (15:43)
[2020-11-19 16:03] LABS: Basophils # (A) 0.1 k/uL (0-0.2); Basophils % (A) 1 %; Eosinophils # (A) 0.2 k/uL (0-0.7); Eosinophils % (A) 2 %; HCT 36.5 % (39.0-53.0); HGB 12.6 gm/dL (13.0-17.5); Lymphocytes # (A) 1.7 k/uL (1.0-4.8); Lymphocytes % (A) 15 %; MCH 31.1 pg (25.0-35.0); MCHC 34.6 g/dL (31.0-37.0); MCV 89.9 fL (80.0-100.0); Mean Platelet Volume 7.9; Monocytes % (A) 8 %; Neutrophils # (A) 8.4 k/uL (1.3-7.7); Neutrophils % (A) 73 %; Platelet Count 248 k/uL (150-450); RBC 4.05 m/uL (4.30-5.90); RDW 13.2 % (11.5-15.5); WBC 11.6 k/uL (3.8-10.6)
[2020-11-19] MEDS ORDERED: BUPIVACAINE (PF) 0.25% 30 ML VIAL SQ ONE (17:12)
[2020-11-19 18:25] LABS: Basophils % (A) 0 %; Eosinophils # (A) 0.1 k/uL (0-0.7); Eosinophils % (A) 1 %; HCT 34.3 % (39.0-53.0); HGB 11.8 gm/dL (13.0-17.5); Lymphocytes # (A) 1.1 k/uL (1.0-4.8); Lymphocytes % (A) 11 %; MCH 31.3 pg (25.0-35.0); MCHC 34.4 g/dL (31.0-37.0); MCV 91.1 fL (80.0-100.0); Mean Platelet Volume 7.5; Monocytes # (A) 0.7 k/uL (0-1.0); Monocytes % (A) 6 %; Neutrophils # (A) 8.5 k/uL (1.3-7.7); Neutrophils % (A) 81 %; Platelet Count 228 k/uL (150-450); RBC 3.77 m/uL (4.30-5.90); WBC 10.5 k/uL (3.8-10.6)
[2020-11-19 19:38] LABS: African American GFR (CKD) >90 (>60 ml/min/1.73 sqM); Anion Gap 9 mmol/L; Blood Urea Nitrogen 15 mg/dL (9-20); Carbon Dioxide 24 mmol/L (22-30); Chloride 103 mmol/L (98-107); Glucose 117 mg/dL (74-99); Non-African American GFR(CKD) >90 (>60 ml/min/1.73 sqM); Potassium 3.4 mmol/L (3.5-5.1); Sodium 136 mmol/L (137-145)
[2020-11-19 20:46] LABS: Glucose,Whole Blood 125 mg/dL (75-99)
--- NOTE | 2020-11-19 20:47 | P.PN ---
Progress Note - Text Progress Note Date: 11/19/20 Pt did well with surgery but unable to extubate secondary to airway protection, swelling due to surgical time and comorbid conditions. Anesthesia and surgeon agree ICU overnight. ICU team contacted and Dr. Conroy happy to take pt. No complications with surgery. ICU management SBT in AM Pain control PRn CT when extubated L spine BP control. No specific MAP goals. >~75 OK. Cont IVABX vancomycin and unasyn
[2020-11-19 21:15] LABS: ABG Base Excess 2.4 mmol/L; ABG HCO3 28 mmol/L (21-25); ABG Oxygen Saturation 99.9 % (94-97); ABG PCO2 47 mmHg (35-45); ABG PH 7.38 (7.35-7.45); ABG PO2 212 mmHg (83-108); ABG TCO2 29 mmol/L (19-24)
[2020-11-19] MEDS ORDERED: propofoL 50 ML IV ONE (21:30)
[2020-11-20] MEDS: oxyCODONE-APAP 10-325MG 1 EACH TAB PO SCH ×6 (01:43→21:32)
--- NOTE | 2020-11-20 01:47 | XR ---
EXAM: XR Chest, 1 View CLINICAL HISTORY: Tube placement TECHNIQUE: Frontal view of the chest. COMPARISON: Yesterday FINDINGS: Lungs: Moderate amount of airspace opacities throughout both lungs, increased. Lungs are underinflated. Pleural space: Unremarkable. No pneumothorax. Mediastinum: Unremarkable. Bones/joints: Lumbar fusion hardware is partially visualized. Moderate degenerative changes. Tubes, lines and devices: Tip of enteric tube is about 6 cm above the kaila. Tip of enteric tube reached is in the distal body the stomach versus second portion of duodenum. Tip of right jugular central venous catheter is likely in right atrium, about 8.3 cm below the level of the kaila. IMPRESSION: Moderate amount of airspace opacities throughout both lungs, increased. Supporting tubes and line are detailed as above.
[2020-11-20] MEDS: AMPICILLIN-SULBACTAM 3 GM in SODIUM CHLORIDE 0.9% 100 ML IVPB SCH ×4 (03:53→20:20)
[2020-11-20 04:31] LABS: Basophils % (A) 0 %; Eosinophils % (A) 0 %; HCT 35.2 % (39.0-53.0); HGB 12.2 gm/dL (13.0-17.5); Lymphocytes # (A) 0.8 k/uL (1.0-4.8); Lymphocytes % (A) 6 %; MCH 31.2 pg (25.0-35.0); MCHC 34.6 g/dL (31.0-37.0); MCV 90.3 fL (80.0-100.0); Mean Platelet Volume 7.6; Monocytes # (A) 0.4 k/uL (0-1.0); Monocytes % (A) 3 %; Neutrophils # (A) 11.9 k/uL (1.3-7.7); Neutrophils % (A) 91 %; Platelet Count 208 k/uL (150-450); RBC 3.91 m/uL (4.30-5.90); WBC 13.1 k/uL (3.8-10.6)
[2020-11-20 04:49] LABS: African American GFR (CKD) >90 (>60 ml/min/1.73 sqM); Anion Gap 6 mmol/L; Blood Urea Nitrogen 14 mg/dL (9-20); Calcium 8.2 mg/dL (8.4-10.2); Carbon Dioxide 26 mmol/L (22-30); Chloride 105 mmol/L (98-107); Glucose 131 mg/dL (74-99); Magnesium 1.7 mg/dL (1.6-2.3); Non-African American GFR(CKD) >90 (>60 ml/min/1.73 sqM); Potassium 4.2 mmol/L (3.5-5.1); Sodium 137 mmol/L (137-145)
[2020-11-20] MEDS: 0.9% NACL WITH KCL 20 MEQ/L 1,000 ML IV SCH ×2 (04:58→17:38)
[2020-11-20] MEDS ORDERED: VANCOMYCIN TROUGH DUE 1 EACH MISC MISCELLANE ONE (05:00)
[2020-11-20 05:04] LABS: ABG Base Excess 4.3 mmol/L; ABG HCO3 28 mmol/L (21-25); ABG Oxygen Saturation 97.8 % (94-97); ABG PCO2 41 mmHg (35-45); ABG PH 7.45 (7.35-7.45); ABG PO2 94 mmHg (83-108); ABG TCO2 30 mmol/L (19-24); Allen Test Performed? Yes
[2020-11-20 05:22] LABS: C Reactive Protein 225.3 mg/L (<10.0)
--- NOTE | 2020-11-20 07:24 | P.CNPUL ---
History of Present Illness Consult date: 11/20/20 Requesting physician: Abdirizak Jama Reason for consult: other Chief complaint: ICU management/ventilator management. History of present illness: This is a 45-year-old male status post incision and drainage with irrigation and debridement of lumbar spine, with evacuation of epidural phlegmon, fusion L4 - S1, with placement antibiotic cement and antibiotic beads and wound VAC placement. The patient could not be extubated after surgery, and came to the intensive care unit on the ventilator. Currently, the patient's on the volume assist control mode, rate 14, tidal volume 500, FiO2 50%, and PEEP of 5. Blood gases show a PaO2 of 94, PaCO2 41, and a pH 7.45. The patient's currently on pr opofol at 60 g per kilogram per minute, as well as lactated Ringer's at 20 mL an hour. The goal today is a daily interruption of sedation and spontaneous breathing trial. The patient has a history of hypertension, and a history of herniated disc, with radiculopathy. Current white blood count is 13.1, hemoglobin 12.2, hematocrit 35.2, and platelet count 208,000. Sodium is 137, potassium 4.2, chlorides 105, CO2 26, anion gap 6, BUN 14, and creatinine 0.56. Chest x-ray shows some bilateral patchy infiltrates, which may relate to either fluid overload and/or atelectasis. Review of Systems No review of systems could be obtained as the patient's currently sedated and intubated. Past Medical History Past Medical History: Hypertension Additional Past Medical History / Comment(s): HERNIATED DISCS WITH BACK PAIN RADIATING DOWN RIGHT LEG. History of Any Multi-Drug Resistant Organisms: None Reported Past Surgical History: Back Surgery, Orthopedic Surgery Additional Past Surgical History / Comment(s): PAIN CLINIC PROCEDURES, JEMMA ROTATOR CUFF REPAIR, laminectomy Past Anesthesia/Blood Transfusion Reactions: No Reported Reaction Past Psychological History: No Psychological Hx Reported Smoking Status: Current every day smoker Past Alcohol Use History: Occasional Additional Past Alcohol Use History / Comment(s): SMOKES 1 PPD, SMOKING SINCE 13 YEARS OLD Past Drug Use History: None Reported - Past Family History Mother Family Medical History: No Reported History Father Additional Family Medical History / Comment(s): heart disease Medications and Allergies Home Medications Medication Instructions Recorded Confirmed Type Meloxicam 15 mg PO DAILY PRN 12/07/17 11/18/20 History Atenolol [Tenormin] 100 mg PO DAILY 09/30/20 11/18/20 History Gabapentin [Neurontin] 300 - 600 mg PO DAILY@1400 PRN 09/30/20 11/18/20 History Tadalafil [Cialis] 20 mg PO DIRECTED PRN 09/30/20 11/18/20 History hydroCHLOROthiazide [Hydrodiuril] 25 mg PO DAILY 09/30/20 11/18/20 History Docusate [Colace] 100 mg PO DAILY PRN #20 capsule 10/02/20 11/18/20 Rx Ibuprofen [Motrin] 800 mg PO Q8H PRN #90 tab 10/02/20 11/18/20 Rx oxyCODONE-APAP 10-325MG [Percocet 1 - 2 tab PO Q4HR PRN 7 Days #56 10/02/20 11/18/20 Rx 10-325 mg] tab Gabapentin 600 mg PO BID@0600,2100 11/16/20 11/18/20 History Lidocaine 5% Patch [Lidoderm] 1 patch TRANSDERM DAILY PRN 11/16/20 11/18/20 History Na Phos,M-B/Na Phos,Di-Ba [Fleet 133 ml RECTAL DAILY PRN 11/16/20 11/18/20 History Adult] Sennosides/Docusate Sodium [Senna 1 tab PO BID PRN 11/16/20 11/18/20 History Plus 8.6-50 mg Softgel] bisacodyL [Dulcolax] 5 mg PO DAILY PRN 11/16/20 11/18/20 History methocarbamoL [Robaxin] 500 mg PO QID PRN 11/16/20 11/18/20 History Citalopram Hydrobromide [CeleXA] 20 mg PO DAILY 11/18/20 11/18/20 History Losartan Potassium 100 mg PO DAILY 11/18/20 11/18/20 History Allergies Allergy/AdvReac Type Severity Reaction Status Date / Time No Known Allergies Allergy Verified 11/19/20 11:28 Physical Exam Osteopathic Statement: *. No significant issues noted on an osteopathic structural exam other than those noted in the History and Physical/Consult. Vitals: Vital Signs Temp Pulse Pulse Resp BP BP BP 11/20/20 06:00 70 15 114/67 11/20/20 05:30 69 12 111/69 11/20/20 05:00 73 13 108/66 11/20/20 04:30 74 13 110/72 11/20/20 04:00 98.2 F 75 60 18 116/78 11/20/20 03:30 72 22 11/20/20 03:00 71 19 11/20/20 02:30 66 19 123/77 11/20/20 02:00 69 16 123/77 11/20/20 01:30 64 16 11/20/20 01:00 66 14 11/20/20 00:30 63 13 11/20/20 00:00 98.2 F 63 60 17 11/19/20 23:44 97.6 F 65 16 124/71 11/19/20 23:30 64 18 11/19/20 23:00 97.3 F L 71 18 11/19/20 22:30 60 14 11/19/20 22:14 97.4 F L 61 17 144/78 11/19/20 22:00 96.3 F L 62 16 11/19/20 21:44 96.1 F L 62 14 130/68 11/19/20 21:34 96.3 F L 64 15 129/67 11/19/20 21:30 80 16 11/19/20 21:00 95.4 F L 66 17 104/58 11/19/20 20:46 82 17 11/19/20 12:35 60 16 137/88 11/19/20 11:22 73 16 116/68 11/19/20 08:00 97.9 F 82 20 131/86 Pulse Ox 11/20/20 06:00 95 11/20/20 05:30 95 11/20/20 05:00 95 11/20/20 04:30 95 11/20/20 04:00 95 11/20/20 03:30 96 11/20/20 03:00 96 11/20/20 02:30 96 11/20/20 02:00 96 11/20/20 01:30 97 11/20/20 01:00 97 11/20/20 00:30 98 11/20/20 00:00 99 11/19/20 23:44 100 11/19/20 23:30 99 11/19/20 23:00 99 11/19/20 22:30 100 11/19/20 22:14 100 11/19/20 22:00 100 11/19/20 21:44 100 11/19/20 21:34 98 11/19/20 21:30 95 11/19/20 21:00 100 11/19/20 20:46 11/19/20 12:35 97 11/19/20 11:22 93 L 11/19/20 08:00 95 Intake and Output 11/19/20 11/20/20 11/20/20 22:59 06:59 14:59 Intake Total 3621 867.735 Output Total 1650 1260 Balance 1971 -392.265 Intake: IV 3121 260 Ampicillin-Sulbactam 3 gm 100 In Sodium Chloride 0.9% 100 ml @ 200 mls/hr IVPB Q6H [facility] Rx#:[id number] Lactated Ringers 1,000 ml 20 160 @ 0 mls/hr IV .STK-MED ONE Rx#:[id number] Intake, IV Titration 297.735 Amount propofoL 500 mg In Empty 297.735 Bag 1 bag @ Titrate IV . Q0M [facility] Rx#:[id number] Blood Product 500 310 Rc Pheresis As-3 Unit 0 310 [id number] Output: Urine 650 1260 Estimated Blood Loss 1000 Other: Weight 135.1 kg ABP, PAP, CO, CI - Last 8 Hours Arterial Blood Pressure 83/78 Arterial Blood Pressure 113/75 Arterial Blood Pressure 103/69 Arterial Blood Pressure 104/70 Arterial Blood Pressure 101/67 Arterial Blood Pressure 115/66 Arterial Blood Pressure 127/72 Arterial Blood Pressure 127/75 Arterial Blood Pressure 121/70 Arterial Blood Pressure 132/74 No acute distress, currently intubated, and mechanically ventilated, and sedated. HEENT examination is grossly unremarkable. The patient has a orally placed endotracheal tube and NG tube. Neck supple. Full range of motion. No adenopathy thyromegaly or neck vein distention. Cardiovascular examination reveals regular rhythm rate. S1-S2 normal. No S3 or S4. No discernible murmur noted. Heart rate is 70 bpm. Lungs reveal mostly clear breath sounds. A few scattered rhonchi are noted. No wheezes or crackles. Abdomen soft bowel sounds are heard. No masses or tenderness. Extremities are intact. No cyanosis clubbing or edema. Skin is without rash or lesion. Neurologic examination cannot be adequately assessed as the patient's sedated and ventilated. Results - Laboratory Findings CBC and BMP: 11/20/20 04:00 11/20/20 04:00 ABG ABG pH 7.45 (7.35-7.45) 11/20/20 04:58 ABG pCO2 41 mmHg (35-45) 11/20/20 04:58 ABG pO2 94 mmHg (83-108) 11/20/20 04:58 ABG O2 Saturation 97.8 % (94-97) H 11/20/20 04:58 Abnormal lab findings: Abnormal Labs 11/18/20 11/18/20 11/19/20 12:10 12:10 06:05 WBC 11.5 H RBC Hgb Hct Neutrophils # Lymphocytes # Monocytes # 1.10 H ESR 67 H ABG pCO2 ABG pO2 ABG HCO3 ABG Total CO2 ABG O2 Saturation Sodium 135 L Potassium 3.3 L Chloride 97 L Carbon Dioxide Creatinine Glucose 101 H POC Glucose (mg/dL) Calcium C-Reactive Protein 226.5 H Crossmatch 11/19/20 11/19/20 11/19/20 06:05 11:31 15:20 WBC 11.6 H RBC 4.05 L Hgb 12.6 L Hct 36.5 L Neutrophils # 8.4 H Lymphocytes # Monocytes # ESR ABG pCO2 ABG pO2 ABG HCO3 ABG Total CO2 ABG O2 Saturation Sodium Potassium Chloride Carbon Dioxide 32.2 H Creatinine Glucose POC Glucose (mg/dL) 106 H Calcium C-Reactive Protein Crossmatch 11/19/20 11/19/20 11/19/20 17:40 18:40 19:20 WBC RBC 3.77 L Hgb 11.8 L Hct 34.3 L Neutrophils # 8.5 H Lymphocytes # Monocytes # ESR ABG pCO2 ABG pO2 ABG HCO3 ABG Total CO2 ABG O2 Saturation Sodium 136 L Potassium 3.4 L Chloride Carbon Dioxide Creatinine 0.57 L Glucose 117 H POC Glucose (mg/dL) Calcium 8.0 L C-Reactive Protein Crossmatch See Detail 11/19/20 11/19/20 11/20/20 20:45 21:09 04:00 WBC 13.1 H RBC 3.91 L Hgb 12.2 L Hct 35.2 L Neutrophils # 11.9 H Lymphocytes # 0.8 L Monocytes # ESR ABG pCO2 47 H ABG pO2 212 H ABG HCO3 28 H ABG Total CO2 29 H ABG O2 Saturation 99.9 H Sodium Potassium Chloride Carbon Dioxide Creatinine Glucose POC Glucose (mg/dL) 125 H Calcium C-Reactive Protein Crossmatch 11/20/20 11/20/20 04:00 04:58 WBC RBC Hgb Hct Neutrophils # Lymphocytes # Monocytes # ESR ABG pCO2 ABG pO2 ABG HCO3 28 H ABG Total CO2 30 H ABG O2 Saturation 97.8 H Sodium Potassium Chloride Carbon Dioxide Creatinine 0.56 L Glucose 131 H POC Glucose (mg/dL) Calcium 8.2 L C-Reactive Protein 225.3 H Crossmatch - Diagnostic Findings Chest x-ray: image reviewed Assessment and Plan Assessment: Postop day #1, status post incision and drainage with irrigation and debridement, lumbar spine, with evacuation of epidural phlegmon, fusion L4 - S1, with placement of antibiotic cement and antibiotic beads. Routine postoperative ventilator management. History of essential hypertension. Discitis and osteomyelitis, L4/L5. History of chronic constipation. Obesity. History of chronic tobacco use. Plan: Plan dated 11/20/2020. The patient will have a daily interruption of sedation and a spontaneous breathing trial today. We will stop the propofol, and place the patient on PSV 5 and CPAP of 5. After 20 or 30 minutes, a full set a weaning parameters will be done including a tidal volume, vital capacity, respiratory rate, minute volume, negative inspiratory pressure, rapid shallow breathing index, and a cuff leak test. It is likely, but the patient could be extubated today. We will continue to follow. Post extubation, we'll recommend deep breathing, coughing, and clearing of secretions, as well as hourly use of the incentive spirometer. Time with Patient: Greater than 30
--- NOTE | 2020-11-20 08:24 | FL ---
Fluoroscopy HISTORY: Lumbar fusion 3 minutes 36 seconds fluoroscopy time supplied to the referring clinician. 3 intraoperative C-arm im ages document the procedure. See dictated report from orthopedic surgery.
--- NOTE | 2020-11-20 08:30 | XR ---
Lumbar spine, limited HISTORY: Lumbar fusion 3 intraoperative C-arm images document the procedure.
[2020-11-20] MEDS ORDERED: DEXMEDETOMIDINE/0.9% NACL(PMX) 400 MCG in EMPTY BAG 1 BAG IV SCH (09:00)
[2020-11-20] MEDS: VANCOMYCIN 1,750 MG in SODIUM CHLORIDE 0.9% 500 ML 500 ML IVPB SCH ×3 (09:05→23:06)
[2020-11-20] MEDS: CYCLOBENZAPRINE 10 MG TAB PO SCH ×3 (09:32→21:32)
[2020-11-20] MEDS: CITALOPRAM HYDROBROMIDE 20 MG TAB PO SCH (09:32)
[2020-11-20] MEDS: LOSARTAN 50 MG TAB PO SCH (09:32)
[2020-11-20] MEDS: CHLORHEXIDINE GLUCONATE 15 ML CUP MUCOUS MEM SCH ×2 (09:32→23:00)
[2020-11-20] MEDS: NICOTINE 21MG/24HR PATCH TRANSDERM SCH (09:32)
[2020-11-20] MEDS: GABAPENTIN 300 MG CAP PO SCH ×3 (09:32→21:32)
[2020-11-20] MEDS: polyethylene glycoL 3350 17 GM POWD.PACK PO SCH (09:33)
[2020-11-20] MEDS ORDERED: NICOTINE POLACRILEX 2 MG GUM BUCCAL PRN (09:39)
--- NOTE | 2020-11-20 09:39 | P.PN ---
Subjective Progress Note Date: 11/20/20 Principal diagnosis: L4 5 and L5-S1 osteo-discitis with epidural phlegmon status post L4 to S1 revision decompression Patient seen and examined vented sedated otherwise doing well. Responds to name and painful stimuli. Moving all 4 extremities appropriately. Objective - Vital Signs Vital signs: Vital Signs Temp 98.2 F 11/20/20 04:00 Pulse 73 11/20/20 07:30 Resp 17 11/20/20 07:30 BP 116/74 11/20/20 07:30 Pulse Ox 95 11/20/20 07:30 Intake & Output 11/19/20 11/20/20 11/20/20 18:59 06:59 18:59 Intake Total 6101 887.735 70 Output Total 2910 310 Balance 6101 -2022.265 -240 Weight 135.1 kg Intake: IV 5601 280 20 Ampicillin-Sulbactam 3 gm 100 In Sodium Chloride 0.9% 100 ml @ 200 mls/hr IVPB Q6H [facility] Rx#:[id number] Lactated Ringers 1,000 ml 180 20 @ 0 mls/hr IV .STK-MED ONE Rx#:[id number] Intake, IV Titration 297.735 50 Amount propofoL 500 mg In Empty 297.735 50 Bag 1 bag @ Titrate IV . Q0M [facility] Rx#:[id number] Blood Product 500 310 Rc Pheresis As-3 Unit 310 [id number] Output: Drainage 160 Lower Medial Back 70 Right Lower Posterior 90 Back Urine 1910 150 Estimated Blood Loss 1000 ABP, PAP, CO, CI - Last Documented Arterial Blood Pressure 83/78 - Exam Patient opens his eyes to his name as well as painful stimuli is moving all 4 extremities with good strength. He is not following commands well enough for thorough exam. Vital signs are stable incision is clean dry and intact drains are putting out minimal in the superficial and approximately 1-200 in the deep. - Labs CBC & Chem 7: 11/20/20 04:00 11/20/20 04:00 Labs: Abnormal Lab Results - Last 24 Hours (Table) 11/19/20 11/19/20 11/19/20 Range/Units 06:05 06:05 11:31 WBC (3.8-10.6) k/uL RBC (4.30-5.90) m/uL Hgb (13.0-17.5) gm/dL Hct (39.0-53.0) % Neutrophils # (1.3-7.7) k/uL Lymphocytes # (1.0-4.8) k/uL Monocytes # 1.10 H (0.20-1.00) X 10*3/uL ABG pCO2 (35-45) mmHg ABG pO2 (83-108) mmHg ABG HCO3 (21-25) mmol/L ABG Total CO2 (19-24) mmol/L ABG O2 Saturation (94-97) % Sodium (137-145) mmol/L Potassium (3.5-5.1) mmol/L Carbon Dioxide 32.2 H (21.6-31.8) mmol/L Creatinine (0.66-1.25) mg/dL Glucose (74-99) mg/dL POC Glucose (mg/dL) 106 H (75-99) mg/dL Calcium (8.4-10.2) mg/dL C-Reactive Protein (<10.0) mg/L Crossmatch 11/19/20 11/19/20 11/19/20 Range/Units 15:20 17:40 18:40 WBC 11.6 H (3.8-10.6) k/uL RBC 4.05 L 3.77 L (4.30-5.90) m/uL Hgb 12.6 L 11.8 L (13.0-17.5) gm/dL Hct 36.5 L 34.3 L (39.0-53.0) % Neutrophils # 8.4 H 8.5 H (1.3-7.7) k/uL Lymphocytes # (1.0-4.8) k/uL Monocytes # (0.20-1.00) X 10*3/uL ABG pCO2 (35-45) mmHg ABG pO2 (83-108) mmHg ABG HCO3 (21-25) mmol/L ABG Total CO2 (19-24) mmol/L ABG O2 Saturation (94-97) % Sodium (137-145) mmol/L Potassium (3.5-5.1) mmol/L Carbon Dioxide (21.6-31.8) mmol/L Creatinine (0.66-1.25) mg/dL Glucose (74-99) mg/dL POC Glucose (mg/dL) (75-99) mg/dL Calcium (8.4-10.2) mg/dL C-Reactive Protein (<10.0) mg/L Crossmatch See Detail 11/19/20 11/19/20 11/19/20 Range/Units 19:20 20:45 21:09 WBC (3.8-10.6) k/uL RBC (4.30-5.90) m/uL Hgb (13.0-17.5) gm/dL Hct (39.0-53.0) % Neutrophils # (1.3-7.7) k/uL Lymphocytes # (1.0-4.8) k/uL Monocytes # (0.20-1.00) X 10*3/uL ABG pCO2 47 H (35-45) mmHg ABG pO2 212 H (83-108) mmHg ABG HCO3 28 H (21-25) mmol/L ABG Total CO2 29 H (19-24) mmol/L ABG O2 Saturation 99.9 H (94-97) % Sodium 136 L (137-145) mmol/L Potassium 3.4 L (3.5-5.1) mmol/L Carbon Dioxide (21.6-31.8) mmol/L Creatinine 0.57 L (0.66-1.25) mg/dL Glucose 117 H (74-99) mg/dL POC Glucose (mg/dL) 125 H (75-99) mg/dL Calcium 8.0 L (8.4-10.2) mg/dL C-Reactive Protein (<10.0) mg/L Crossmatch 11/20/20 11/20/20 11/20/20 Range/Units 04:00 04:00 04:58 WBC 13.1 H (3.8-10.6) k/uL RBC 3.91 L (4.30-5.90) m/uL Hgb 12.2 L (13.0-17.5) gm/dL Hct 35.2 L (39.0-53.0) % Neutrophils # 11.9 H (1.3-7.7) k/uL Lymphocytes # 0.8 L (1.0-4.8) k/uL Monocytes # (0.20-1.00) X 10*3/uL ABG pCO2 (35-45) mmHg ABG pO2 (83-108) mmHg ABG HCO3 28 H (21-25) mmol/L ABG Total CO2 30 H (19-24) mmol/L ABG O2 Saturation 97.8 H (94-97) % Sodium (137-145) mmol/L Potassium (3.5-5.1) mmol/L Carbon Dioxide (21.6-31.8) mmol/L Creatinine 0.56 L (0.66-1.25) mg/dL Glucose 131 H (74-99) mg/dL POC Glucose (mg/dL) (75-99) mg/dL Calcium 8.2 L (8.4-10.2) mg/dL C-Reactive Protein 225.3 H (<10.0) mg/L Crossmatch Microbiology - Last 24 Hours (Table) 11/19/20 14:00 Gram Stain - Preliminary Back Tissue Culture - Preliminary 11/19/20 14:00 Gram Stain - Preliminary Back Wound Culture - Preliminary 11/19/20 14:00 Gram Stain - Preliminary Back Wound Culture - Preliminary 11/19/20 14:00 Gram Stain - Preliminary Back Wound Culture - Preliminary 11/19/20 14:00 Gram Stain - Preliminary Back Wound Culture - Preliminary 11/19/20 14:00 Gram Stain - Preliminary Back Wound Culture - Preliminary 11/19/20 14:00 Fungal Culture - Preliminary Back 11/19/20 14:00 Fungal Culture - Preliminary Back 11/19/20 14:00 Fungal Culture - Preliminary Back 11/19/20 14:00 Fungal Culture - Preliminary Back 11/19/20 14:00 Fungal Culture - Preliminary Back 11/19/20 14:00 Anaerobic Culture - Preliminary Back 11/19/20 14:00 Anaerobic Culture - Preliminary Back 11/19/20 14:00 Anaerobic Culture - Preliminary Back 11/19/20 14:00 Anaerobic Culture - Preliminary Back 11/19/20 14:00 Anaerobic Culture - Preliminary Back 11/19/20 14:00 Wound Culture - Preliminary Back 11/19/20 14:00 Fungal Culture - Preliminary Back 11/19/20 14:00 Anaerobic Culture - Preliminary Back 11/18/20 12:10 Blood Culture - Preliminary Blood No Growth after 24 hours Assessment and Plan Assessment: 45-year-old male with L4 5 L5-S1 osteo-discitis with epidural phlegmon postoperative day 1 from irrigation debridement L4 to S1 decompression and fusion Plan: -Appreciate medicine and ICU management. -Vent control per ICU -Pain control: Adequate at this time -Aggressive ambulation protocol. OOB with all meals. OOB or in chair 4-5x daily. -PT/OT -TEDs, SCDs, mechanical ppx. OK for heparin today. Early ambulation is best. -GI ppx. -CT scan of lumbar spine when extubated -Trend labs. -Activity as tolerated -Dispo: Pending
[2020-11-20] MEDS: atenoloL 50 MG TAB PO SCH (10:28)
[2020-11-20] MEDS: HYDROmorphone 1 MG/ML 1 ML SYRINGE IVP PRN ×5 (10:33→23:07)
[2020-11-20] MEDS ORDERED: HYDROmorphone 1 MG/ML 1 ML SYRINGE IVP STA (12:02)
--- NOTE | 2020-11-20 14:43 | P.PN ---
Subjective Progress Note Date: 11/20/20 (delayed charting seen at 0945) Principal diagnosis: back pain Patient is a 45-year-old male with a history of chronic low back pain status post L4-5 decompression with revision and microdiscectomy, right sided laminotomy with microdiscectomy L5-S1 on 10/01/2020, hypertension, and tobacco abuse who was sent in by Dr. Jama for direct admission due to osteomyelitis. Patient had been hospitalized here on 11/16 due to concerns for infection. During that hospital stay he had underwent an MRI of the spine which showed L4 5 discitis with osteomyelitis, residual disc herniation as well as large phlegmon measuring 9 x 5 cm. During that hospital stay he ultimately left AGAINST MEDICAL ADVICE with a less than 24-hour hospital stay. He had also been seen for his back pain at [facility] where he underwent a CT but they did not see any definitive process per patient. He continued to have worsening back pain and therefore was admitted by Dr. Jama. He was started on Unasyn and vancomycin. Infectious disease as consulted and agreed with current antibiotics. He underwent surgery on 11/19 with I and D, antibiotic beads and cement. Cultures were taken. He was transferred to the ICU Intubated after surgery. He self extubated on the morning of 11/20. Patient seen and examined at bedside. He was initially intubated and sedated. He self extubated and was crying and complaining of pain, nurse was at bedside. General: non toxic, mild distress due to pain, appears at stated age Derm: warm, dry Head: atraumatic, normocephalic, symmetric Eyes: EOMI, no lid lag, anicteric sclera Mouth: no lip lesion, mucus membranes moist Cardiovascular: S1S2 reg, no murmur, positive posterior tibial pulse bilateral, Lungs: CTA bilateral, no rhonchi, no rales , no accessory muscle use Abdominal: soft, +tender to palpation RLQ and LLQ, no guarding, no appreciable organomegaly Ext: no gross muscle atrophy, no edema, no contractures Neuro: CN II-XI grossly intact, no focal neuro deficits Psych: Alert, oriented, appropriate affect 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, s/p surgery 11/19 with I and D antibiotic beads and cement with fusion -Continue with Unasyn, Zosyn -ID consultation. Patient will likely need PICC line on discharge for 6-12 weeks of IV antibiotics - Blood cultures negative to date -Pain control: one extra dose of IV dilaudid -Follow CRP -await repeat cultures Acute blood loss anemia - follow CBC - anticipated outcome of surgery - s/p 1 unit pBC Hypertension, controlled -Hold hydrochlorothiazide -Continue with losartan and atenolol -Follow blood pressures Constipation -Continue with Senokot and MiraLAX Tobacco abuse -Cessation -Nicotine replacement Obesity with BMI 32.6 -Outpatient structured weight loss Hypokalemia, resolved Thank you for allowing us to participate in the care of this pleasant patient. Do not hesitate to contact us with questions. Someone can be reached from the [facility] hospitalist group all hours of the day at [phone] or via [employer]. Objective - Vital Signs Vital signs: Vital Signs Temp 98.2 F 11/20/20 04:00 Pulse 77 11/20/20 13:30 Resp 46 H 11/20/20 13:30 BP 116/66 11/20/20 12:30 Pulse Ox 97 11/20/20 13:30 Intake & Output 11/19/20 11/20/20 11/20/20 18:59 06:59 18:59 Intake Total 6101 887.735 312 Output Total 2910 475 Balance 6101 -2022.265 -163 Weight 135.1 kg Intake: IV 5601 280 212 Ampicillin-Sulbactam 3 gm 100 100 In Sodium Chloride 0.9% 100 ml @ 200 mls/hr IVPB Q6H [facility] Rx#:[id number] Lactated Ringers 1,000 ml 180 100 @ 0 mls/hr IV .STK-MED ONE Rx#:[id number] pressure bag 12 Intake, IV Titration 297.735 100 Amount propofoL 500 mg In Empty 297.735 100 Bag 1 bag @ Titrate IV . Q0M [facility] Rx#:[id number] Blood Product 500 310 Rc Pheresis As-3 Unit 310 [id number] Output: Drainage 160 Lower Medial Back 70 Right Lower Posterior 90 Back Urine 1910 315 Estimated Blood Loss 1000 Other: Voiding Method Indwelling Catheter ABP, PAP, CO, CI - Last Documented Arterial Blood Pressure 141/89 - Labs CBC & Chem 7: 11/20/20 04:00 11/20/20 04:00 Labs: Abnormal Lab Results - Last 24 Hours (Table) 11/19/20 11/19/20 11/19/20 Range/Units 15:20 17:40 18:40 WBC 11.6 H (3.8-10.6) k/uL RBC 4.05 L 3.77 L (4.30-5.90) m/uL Hgb 12.6 L 11.8 L (13.0-17.5) gm/dL Hct 36.5 L 34.3 L (39.0-53.0) % Neutrophils # 8.4 H 8.5 H (1.3-7.7) k/uL Lymphocytes # (1.0-4.8) k/uL ABG pCO2 (35-45) mmHg ABG pO2 (83-108) mmHg ABG HCO3 (21-25) mmol/L ABG Total CO2 (19-24) mmol/L ABG O2 Saturation (94-97) % Sodium (137-145) mmol/L Potassium (3.5-5.1) mmol/L Creatinine (0.66-1.25) mg/dL Glucose (74-99) mg/dL POC Glucose (mg/dL) (75-99) mg/dL Calcium (8.4-10.2) mg/dL C-Reactive Protein (<10.0) mg/L Crossmatch See Detail 11/19/20 11/19/20 11/19/20 Range/Units 19:20 20:45 21:09 WBC (3.8-10.6) k/uL RBC (4.30-5.90) m/uL Hgb (13.0-17.5) gm/dL Hct (39.0-53.0) % Neutrophils # (1.3-7.7) k/uL Lymphocytes # (1.0-4.8) k/uL ABG pCO2 47 H (35-45) mmHg ABG pO2 212 H (83-108) mmHg ABG HCO3 28 H (21-25) mmol/L ABG Total CO2 29 H (19-24) mmol/L ABG O2 Saturation 99.9 H (94-97) % Sodium 136 L (137-145) mmol/L Potassium 3.4 L (3.5-5.1) mmol/L Creatinine 0.57 L (0.66-1.25) mg/dL Glucose 117 H (74-99) mg/dL POC Glucose (mg/dL) 125 H (75-99) mg/dL Calcium 8.0 L (8.4-10.2) mg/dL C-Reactive Protein (<10.0) mg/L Crossmatch 11/20/20 11/20/20 11/20/20 Range/Units 04:00 04:00 04:58 WBC 13.1 H (3.8-10.6) k/uL RBC 3.91 L (4.30-5.90) m/uL Hgb 12.2 L (13.0-17.5) gm/dL Hct 35.2 L (39.0-53.0) % Neutrophils # 11.9 H (1.3-7.7) k/uL Lymphocytes # 0.8 L (1.0-4.8) k/uL ABG pCO2 (35-45) mmHg ABG pO2 (83-108) mmHg ABG HCO3 28 H (21-25) mmol/L ABG Total CO2 30 H (19-24) mmol/L ABG O2 Saturation 97.8 H (94-97) % Sodium (137-145) mmol/L Potassium (3.5-5.1) mmol/L Creatinine 0.56 L (0.66-1.25) mg/dL Glucose 131 H (74-99) mg/dL POC Glucose (mg/dL) (75-99) mg/dL Calcium 8.2 L (8.4-10.2) mg/dL C-Reactive Protein 225.3 H (<10.0) mg/L Crossmatch Microbiology - Last 24 Hours (Table) 11/18/20 12:10 Blood Culture - Preliminary Blood No Growth after 48 hours 11/19/20 14:00 Gram Stain - Preliminary Back Wound Culture - Preliminary 11/19/20 14:00 Gram Stain - Preliminary Back Tissue Culture - Preliminary 11/19/20 14:00 Gram Stain - Preliminary Back Wound Culture - Preliminary 11/19/20 14:00 Gram Stain - Preliminary Back Wound Culture - Preliminary 11/19/20 14:00 Gram Stain - Preliminary Back Wound Culture - Preliminary 11/19/20 14:00 Gram Stain - Preliminary Back Wound Culture - Preliminary 11/19/20 14:00 Gram Stain - Preliminary Back Wound Culture - Preliminary 11/19/20 14:00 Fungal Culture - Preliminary Back 11/19/20 14:00 Fungal Culture - Preliminary Back 11/19/20 14:00 Fungal Culture - Preliminary Back 11/19/20 14:00 Fungal Culture - Preliminary Back 11/19/20 14:00 Fungal Culture - Preliminary Back 11/19/20 14:00 Anaerobic Culture - Preliminary Back 11/19/20 14:00 Anaerobic Culture - Preliminary Back 11/19/20 14:00 Anaerobic Culture - Preliminary Back 11/19/20 14:00 Anaerobic Culture - Preliminary Back 11/19/20 14:00 Anaerobic Culture - Preliminary Back 11/19/20 14:00 Fungal Culture - Preliminary Back 11/19/20 14:00 Anaerobic Culture - Preliminary Back
--- NOTE | 2020-11-20 15:15 | P.OP ---
Date of Procedure: 11/19/20 Preoperative Diagnosis: L4-S1 osteodiscitis with epidural phlegmon s/p L4-S1 decompression with superficial wound infection Postoperative Diagnosis: Same Procedure(s) Performed: 1. Exploration of wound and decompression 2. Incision and drainage with irrigation and debridment of skin, soft tissue, bone, muscle, dura and disc spaces using the following -Curette, rongure, knife for excision of necrotic skin, fat, soft tissues -Kerrison rongues for removal of bone as well as high speed ethan 3. Posterior lateral fusion L4-S1 4. Evacuation of epidural mass and phlegmon L4-5 5. L4-5 intradiscal osteotomy (3 column) with interbody fusion with placement of antibiotic cement and interbody cage 6. L5-S1 intradiscal osteotomy (3 column) with interbody fusion with placement of abx cement and interbody cage 7. L4-S1 decompressive laminectomy with b/l complete facetectomy, and foraminotomy 8. Placement of antibiotic beads 9. Complex wound closure measuring 13 cm x 6 cm x 10 cm Implants: albert everest 6.5 screws Prolift cages x2 8-13 mm 12 deg lordotic auto graft allograft bio4 Anesthesia: GETA Surgeon: Abdirizak Jama (HERNANDEZ Lopez was present from beining of the case until then end of dissection and was necessary due to the complexity of the case. Suzy NG was present from the end of dissection till the completeion of the case and was necessary due to the complexity of the case. ) Estimated Blood Loss (ml): 1,000 IV fluids (ml): 5,400 Urine output (ml): 1,000 Pathology: other (specimine superficial lumbar spine x2, intermediate lumbar spine x2; deep lumbar spine x2; L4-5 disc space x2) Condition: stable Disposition: ICU Indications for Procedure: 45-year-old male presents complaining of low back pain and purulent discharge from his wound. Patient previously underwent a revision lumbar laminectomy from L4 to S1 on 10/01/2020. He did fairly well after surgery and was recovered and went home. He is seen twice postoperatively and was having increasing postop erative pain but his incision was healing and he was doing fairly well with no subjective fevers chills or other issues. Over the past couple of weeks the patient has noted increasing pain in his low back as well as pain in his hips. He states it is like a bone pain. He also states that his back about 6 days after surgery he felt a new pop in his back and this increased his pain as well. He has been taking pain medications. He was seen in the office and started on an by mouth dose of Duricef for some minor wound issues which seem to clear. He presented today however to the emergency department with increasing pain and purulent drainage from the superior portion of his wound. He states he went to [facility] where they worked him up for some fluid on his abdomen that they did not find anything. The purulent drainage from his wound has only started over the past couple of days. He denies any fevers at home. He denies any chills at home. No shortness of breath or chest pain. He does state some numbness and tingling in his left foot is present after surgery. It does not seem to be increasing. He denies any bowel or bladder issues other than he is slightly constipated at this time due to the pain medications he is taking. He states no numbness or tingling in his general region and full control of his urinary and bowel. Operative Findings: Superficial suture abscess noted in proximal portion of incision. L4-5 disc space was completely dessicated and had what is hellen to infective material but there was no tia purulence. Epidural phlegmon noted from L4-L5. Description of Procedure: The patient was seen and examined in the preoperative area. All preoperative protocols were followed. Informed consent was obtained risks and benefits of the procedure were discussed at length. Risks including bleeding infection damage to the surrounding tissue and risk of reoperation were discussed with the patient. Risk of anesthesia up to and including was a discussed with the patient. These are outlined in the risk review. They were willing to accept these risks and all of the risks of surgery. The patient was given a weight- based dose of antibiotics in the form of vancomycin per pharmacy. The patient was seen and evaluated by the anesthesia team who deemed them fit for surgery. The site was marked, the patient was willing to proceed with the procedure. The patient was transferred to the operative suite by the Department of anesthesia. They were then drifted off to sleep by the department anesthesia Gen. endotracheal intubation. The patient tolerated this well. [Dudley catheter was placed by nursing staff, atraumatically]. Once confirmation of lines and ventilation the patient was transferred to a [prone Arthur table very carefully]. All bony prominences including wrists, elbows, axilla, chest, hips, and thighs, and feet were padded very well. Special attention was paid to the g enitalia and these were padded accordingly. SCDs were placed on bilateral lower extremities and were connected. Arms were well padded and placed [on arm boards up and out in the 90/90 position]. Once in position, again we confirmed good ventilation capabilities and that lines were running appropriately. The patient's lumbar spine spine was then exposed. 1010s were placed outlining the incision site. Standard alcohol was used to clean the incision site and allowed to dry. C-arm was used to biomark the patient and confirm level for incision which was marked with a skin marker. Operative briefing was performed with all teams and everyone in agreement to proceed. The patient was then prepped and draped in a normal sterile fashion. Timeout was then performed and all parties were in agreement with the procedure to be performed. Incision was then made over the previous implant by marked area and previous incision. It was noted at the superior portion of the incision there is a small suture abscess and cultures were taken superficially of the wound. Dissection was then taken down through the subcutaneous tissue which was ample of this area. There was what appears to be an abscess within the superficial tissue here however no tia purulence was noted and this was more of a abscess phlegmon which is noted. This was evacuated in its hole within the soft tissue on the way down. The fascia was then encountered and fascial incision was made in line with the previous incision. There was more phlegmon us material which was then evacuated from the subfascial region. Subperiosteal dissection was taken down over the spinous processes and lamina of L3 through S1. Care was taken over the previous laminotomy sites at L4 5 and L5-S1. A Leal elevator was used in these areas to ensure dural congruence. The wound was extremely deep secondary to the patient's morbidly obese body habitus making it difficult for dissection. When this was then taken out over to the transverse processes of L4 through S1. Facet joints were visualized at these levels as well. Transverse processes were decorticated at this point secondary to the difficulty with visualization and retraction. Retractions were placed. The wound was then copiously irrigated with antibiotic irrigation and curettes were used to scrape the skin soft tissue and bone of this region to eliminate any scar tissue phlegmon us tissue infectious type tissue or necrotic fat. Irricept was also used in this area at this time and then washed out with normal sterile saline. Attention was then drawn to placement of pedicle screws from L4 to S1. Lateral fluoroscopy was used to guide this placement. Starting point was identified and a high-speed bur was used to enter the cortices of the L4 pedicle under lateral fluoroscopy. Feeler was then used to ensure within the pedicle followed by a pedicle finder. This was done under lateral fluoroscopy. Once in good position feeler was again used to confirm 4 casillas of the pedicle and used to measure screws. Screws were then measured and placed under lateral fluoroscopy on the left-hand side at L4 L5 and S1 this was then repeated on the right-hand side at L4-L5 and S1. Screws were then tested via intraoperative neuro monitoring and all tested above 20 mA. The wound was then again copiously irrigated with Irricept and normal sterile saline. Attention was then drawn to the decompression of L4-L5 secondary to this being the area of interest and possible osteo-discitis. A Texas T cut was performed at the L4-L5 region removing the L4 inferior IP bilaterally completely and the bilateral L5 SAP. This allowed access to the disc space at L4 5 bilaterally. The exiting nerve roots as well as the dura were completely protected during this. Due to exuberant osteophyte formation posteriorly under lateral fluoroscopy we performed a intradiscal 3 column osteotomy at L4 5 bilaterally. Was done with a quarter inch osteotome. Once we had access the disc space and allowed for better lordosis in this area due to the osteotomy jerri were introduced first on the right-hand side and once a core door had been made a lamina contract clerk was placed in the disc space and opened this allowed for better visualization and extraction of disc and osteophyte material from the left-hand side. This was then done with a pituitary. Large amounts of disc fragment and what appeared to be slightly phlegmon us for fragments were removed. Jerri were then sequentially inserted from 6 up to 12 on the left-hand side. Once we achieved a 12 shaver we placed the second lamina contract clerk into the left-hand side and remove the right-hand side contract clerk and we did shave on the right hand side after performing intradiscal osteotomy as well on the right-hand side up to 12. We then used a laparoscopic research program manager to thoroughly irrigate the disc space with 6 L of antibiotic irrigation. This allowed for throughput irrigation at this level. Once this was completed the endplates were again scraped with a bear claw. Lamina contract clerk was replaced on the right-hand side and removed on the left-hand side. A 12 lordotic 8-13 mm prolific cage was then selected. Autograft allograft were placed anterior to the cage on the left-hand side and bio 4 was placed within the cage. The cages then impacted into place under lateral fluoroscopy. The cage was then expanded until good fit and the lamina contract clerk was removed on the right. The cages then inspected and was in good position and held good lordosis. The nerve root was completely protected as well as the thecal sac during insertion and there is no injury. Attention was then drawn to the right hand side of the L4 5 region and in this void we were able to inject approximate 5 mL of Stimulan antibiotic cement. We did this under lateral fluoroscopy as well. He had filled the rest of the disc space farewell allowed for antibiotic cement delivery. This was maintained anterior to the thecal sac and was confirmed to be in good position under lateral fluoroscopy. There is no cement extravasation. Attention is then drawn to the L5-S1 disc space where a Texas T cut was again performed with bilateral facetectomies and foraminotomies. Due to the exuberant posterior osteophyte in this region 3 column osteotomy was again performed in the form of an intradiscal osteotomy of the L5-S1 disc space to allow for decompression as well as deformity correction to allow for better lordosis at this level. This was done with an osteotome under lateral fluoroscopy. Sequential shaving then achieved a 12 shaver within this area lamina contract clerk was placed to correct lordosis and a 12 8-13 mm prolific cage was selected. Autograft and allograft were placed anterior to the cage after scraping the endplates with a bear claw. The cages filled with autograft and bio 4 was then impacted into place under lateral fluoroscopy. The cages then expanded under lateral fluoroscopy and allowed for good fit as well as lordosis. We then once again copiously irrigated with Irricept and 2 L of normal sterile saline. Meticulous hemostasis was performed with electrocautery bipolar as well as FloSeal. Rods were selected and were placed. Set screws were placed on top and were final tightened. 2 cross-links were selected and these were placed and final tightened and the place. Surgicel was then placed over the dural sac that was exposed. Combination of allograft and autograft was then placed in the posterior lateral gutters and impacted into place. Sacral ala was decorticated and bone was placed in this area as well. Stimulan antibiotic beads were then placed deep to the fascia. 2 deep drains were placed as well. Vancomycin powder was also placed deep to the fascia. We then ensued with a complex fascia l closure using 0 PDS suture followed by a running unidirectional strata fix. In the subcu tissue a drain was placed superficially as well as antibiotic beads and more vancomycin. Subcu tissue was then approximated to decrease space with 0 PDS as well as. This is followed by a running oh strata fix. Layered closure was then performed Cellerate powder along with vancomycin powder replaced and the subcuticular region and subcu was closed with 0 PDS 2-0 PDS and a running strata fix. Skin was then closed with a 2-0 nylon in a running fashion. The wound was then cleaned with alcohol and sterilely dressed with sterile Adaptic 4 x 4's and Tegaderms. The drains were sewn into place with PDS suture. The patient was transferred back to her hospital bed atraumatically. Drain continued to hold suction and were in good position. Patient was then awakened and extubated by the department of anesthesia having tolerated the procedure very well with no complications. She was transferred to the postoperative care unit in stable condition.
--- NOTE | 2020-11-20 18:25 | CT ---
EXAMINATION TYPE: CT lumbar spine wo con DATE OF EXAM: 11/20/2020 COMPARISON: 11/16/2020 HISTORY: Post OP pain. CT DLP: 1463.4 mGycm Automated exposure control for dose reduction was used. Images were obtained from the level of T12-S3 vertebra without contrast. Lumbar vertebra have normal alignment. There is rods and screws fusing posteriorly lumbar spine from L4 to S1. There is disc prosthesis at L4-5 and L5-S1. Lumbar vertebra show no significant compression deformity. I see no focal bone destruction. The sacroiliac joints appear intact. There is mild subcu taneous edema over the posterior lower lumbar spine. There is no lumbar paraspinal mass. There is no evidence of spinal stenosis. Exam limited by metal artifact. I see no significant fluid collection at the surgery site posteriorly. There is posterior calcified disc herniation at L4-5 and L5-S1 unchang ed. IMPRESSION: Fusion surgery as above. No evidence of an abscess. No focal bone destruction. Limited exam due to me juwan artifact.
[2020-11-20] MEDS: ALPRAZolam 0.5 MG TAB PO PRN (20:20)
--- NOTE | 2020-11-20 22:03 | PN ---
PROGRESS NOTE DATE OF SERVICE: 11/20/2020 REASON FOR FOLLOWUP: Lumbosacral spine abscess. INTERVAL HISTORY: The patient was taken to the OR status post extensive surgery with drainage of the abscess. The patient was seen on rounds this morning when the patient had been just extubated and was slightly sleepy, lethargic, unable to provide any history. He was hemodynamically stable, not on any pressor support. No vomiting or any diarrhea was reported. PHYSICAL EXAMINATION: Blood pressure 123/64, pulse of 62, temperature 98. He is 95% on 2 L nasal cannula. General description is a middle-aged male lying in bed in no distress. RESPIRATORY SYSTEM: Unlabored breathing. Clear to auscultation anteriorly. HEART: S1, S2. Regular rate and rhythm. ABDOMEN: Soft. No tenderness. LABS: Cultures so far pending. DIAGNOSTIC IMPRESSION AND PLAN: Patient with lumbosacral spinal abscess, status post surgical drainage. Cultures pending. Patient is covered with Unasyn and vancomycin; to continue while monitoring his clinical course closely. MMODL / IJN: [id number] /
[2020-11-21] MEDS: oxyCODONE-APAP 10-325MG 1 EACH TAB PO SCH ×7 (01:13→23:59)
[2020-11-21] MEDS: HYDROmorphone 1 MG/ML 1 ML SYRINGE IVP PRN ×6 (03:02→21:44)
[2020-11-21] MEDS: AMPICILLIN-SULBACTAM 3 GM in SODIUM CHLORIDE 0.9% 100 ML IVPB SCH ×4 (03:04→20:19)
[2020-11-21] MEDS: VANCOMYCIN 1,750 MG in SODIUM CHLORIDE 0.9% 500 ML 500 ML IVPB SCH ×3 (06:03→21:44)
[2020-11-21 06:04] LABS: Basophils % (A) 0 %; Eosinophils % (A) 0 %; HCT 35.2 % (39.0-53.0); Hypochromasia Moderate; Lymphocytes % (A) 19 %; MCH 29.6 pg (25.0-35.0); MCHC 31.1 g/dL (31.0-37.0); MCV 95.2 fL (80.0-100.0); Mean Platelet Volume 8.3; Monocytes # (A) 0.7 k/uL (0-1.0); Monocytes % (A) 6 %; Neutrophils # (A) 7.9 k/uL (1.3-7.7); Neutrophils % (A) 74 %; Platelet Count 200 k/uL (150-450); Poikilocytosis Slight; RDW 15.4 % (11.5-15.5); WBC 10.8 k/uL (3.8-10.6)
[2020-11-21 06:20] LABS: ALT 60 U/L (4-49); AST 163 U/L (17-59); African American GFR (CKD) >90 (>60 ml/min/1.73 sqM); Albumin 2.7 g/dL (3.5-5.0); Alkaline Phosphatase 46 U/L (38-126); Anion Gap 2 mmol/L; Blood Urea Nitrogen 13 mg/dL (9-20); Calcium 8.3 mg/dL (8.4-10.2); Carbon Dioxide 31 mmol/L (22-30); Chloride 106 mmol/L (98-107); Glucose 90 mg/dL (74-99); Magnesium 1.9 mg/dL (1.6-2.3); Non-African American GFR(CKD) >90 (>60 ml/min/1.73 sqM); Potassium 3.7 mmol/L (3.5-5.1); Sodium 139 mmol/L (137-145); Total Bilirubin 0.5 mg/dL (0.2-1.3); Total Protein 5.1 g/dL (6.3-8.2)
[2020-11-21] MEDS: 0.9% NACL WITH KCL 20 MEQ/L 1,000 ML IV SCH (07:54)
[2020-11-21] MEDS: polyethylene glycoL 3350 17 GM POWD.PACK PO SCH (08:13)
[2020-11-21] MEDS: GABAPENTIN 300 MG CAP PO SCH ×3 (08:14→20:20)
[2020-11-21] MEDS: CITALOPRAM HYDROBROMIDE 20 MG TAB PO SCH (08:14)
[2020-11-21] MEDS: LOSARTAN 50 MG TAB PO SCH (08:14)
[2020-11-21] MEDS: atenoloL 50 MG TAB PO SCH (08:14)
[2020-11-21] MEDS: CYCLOBENZAPRINE 10 MG TAB PO SCH ×3 (08:15→20:20)
--- NOTE | 2020-11-21 09:18 | P.PN ---
Subjective Progress Note Date: 11/21/20 Principal diagnosis: L4 5 and L5-S1 osteo-discitis with epidural phlegmon status post L4 to S1 revision decompression Patient seen and examined this morning. He is doing much better he seated up in his chair getting his central line removed as well as his Del Toro catheter. Ginny palmer states that he is doing fairly well he feels some stiffness in his back but otherwise feels pretty good. Denies any pain in his legs denies any numbness or tingling or new symptoms. Denies any fevers chills shortness of breath or chest pain at this time. Objective - Vital Signs Vital signs: Vital Signs Temp 97.9 F 11/21/20 04:00 Pulse 93 11/21/20 07:00 Resp 10 L 11/21/20 07:00 BP 116/95 11/21/20 07:00 Pulse Ox 94 L 11/21/20 07:00 Intake & Output 11/20/20 11/21/20 11/21/20 18:59 06:59 18:59 Intake Total 496 2793 483 Output Total 1250 1150 30 Balance -754 1643 453 Weight 140 kg Intake: IV 236 1353 3 Ampicillin-Sulbactam 3 gm 100 200 In Sodium Chloride 0.9% 100 ml @ 200 mls/hr IVPB Q6H [facility] Rx#:[id number] Lactated Ringers 1,000 ml 100 120 @ 0 mls/hr IV .[facility] Rx#:[id number] Vancomycin 1,750 mg In 1000 Sodium Chloride 0.9% 500 ml 500 ml @ 167 mls/hr IVPB Q8H [facility] Rx#: [id number] pressure bag 36 33 3 Intake, IV Titration 260 Amount Lactated Ringers 1,000 ml 160 @ 0 mls/hr IV .[facility] Rx#:[id number] propofoL 500 mg In Empty 100 Bag 1 bag @ Titrate IV . Q0M [facility] Rx#:[id number] Oral 1440 480 Output: Drainage 160 95 Lower Medial Back 70 0 Right Lower Posterior 90 95 Back Urine 1090 1055 30 Other: Voiding Method Indwelling Catheter Indwelling Catheter ABP, PAP, CO, CI - Last Documented Arterial Blood Pressure 121/71 - Exam Patient is alert and oriented 3 appears well-nourished well-hydrated is in no acute distress. They does not appear septic. On exam the patient has no tenderness to palpation of her thoracic or lumbar spine. There is no edema or ballottement sign. They have good strength in her lower extremities with 5 out of 5 dorsiflexion plantar flexion EHL and FHL bilaterally. Upper extremities show 5/5 strength in all major muscle groups. There is FROM that is painless of the b/l UE and LE in all major joints. They are intact to light touch sensation in L2 to S1 nerve distribution. Patient has palpable dorsalis pedis was posterior tibial pulses. Compartments are soft and compressible. Patient shows a negative Homans, Zavala's, negative Babinski's negative clonus bilaterally. negative straight leg raise bilaterally. No tensioning signs.Cranial nerves II through XII are grossly intact. Overall alignment is well-maintained in the sagittal coronal planes. Incision is clean dry and intact dressing as some saturation. Drains are in place and are putting out well - Constitutional General appearance: Present: cooperative - Labs CBC & Chem 7: 11/21/20 05:47 11/21/20 05:47 Labs: Abnormal Lab Results - Last 24 Hours (Table) 11/21/20 11/21/20 Range/Units 05:47 05:47 WBC 10.8 H (3.8-10.6) k/uL RBC 3.70 L (4.30-5.90) m/uL Hgb 11.0 L (13.0-17.5) gm/dL Hct 35.2 L (39.0-53.0) % Neutrophils # 7.9 H (1.3-7.7) k/uL Carbon Dioxide 31 H (22-30) mmol/L Creatinine 0.57 L (0.66-1.25) mg/dL Calcium 8.3 L (8.4-10.2) mg/dL AST 163 H (17-59) U/L ALT 60 H (4-49) U/L Total Protein 5.1 L (6.3-8.2) g/dL Albumin 2.7 L (3.5-5.0) g/dL Microbiology - Last 24 Hours (Table) 11/19/20 14:00 Gram Stain - Preliminary Back Wound Culture - Preliminary 11/19/20 14:00 Gram Stain - Preliminary Back Wound Culture - Preliminary 11/19/20 14:00 Gram Stain - Preliminary Back Tissue Culture - Preliminary 11/19/20 14:00 Gram Stain - Preliminary Back Wound Culture - Preliminary 11/19/20 14:00 Gram Stain - Preliminary Back Wound Culture - Preliminary 11/19/20 14:00 Gram Stain - Preliminary Back Wound Culture - Preliminary 11/19/20 14:00 Gram Stain - Preliminary Back Wound Culture - Preliminary 11/18/20 12:10 Blood Culture - Preliminary Blood No Growth after 48 hours Assessment and Plan Assessment: 45-year-old male with L4 5 L5-S1 osteo-discitis with epidural phlegmon postoperative day 2 from irrigation debridement L4 to S1 decompression and fusion Plan: -Appreciate medicine and ICU management. -Pt stable for floor today -DC central and del toro -Pain control: Adequate at this time -Aggressive ambulation protocol. OOB with all meals. OOB or in chair 4-5x daily. -PT/OT -TEDs, SCDs, mechanical ppx. OK for heparin today. Early ambulation is best. -GI ppx. -CT scan of lumbar spine -Trend labs. -Activity as tolerated -ID recs for abx, await final cx. Cont with current regiment. -Dispo: Pending
--- NOTE | 2020-11-21 09:21 | P.PN ---
Subjective Progress Note Date: 11/21/20 Principal diagnosis: routine ventilator management, status post I&D and debridement of the lumbar spine This is a 45-year-old male status post incision and drainage with irrigation and debridement of lumbar spine, with evacuation of epidural phlegmon, fusion L4 - S1, with placement antibiotic cement and antibiotic beads and wound VAC placement. The patient could not be extubated after surgery, and came to the intensive care unit on the ventilator. Currently, the patient's on the volume assist control mode, rate 14, tidal volume 500, FiO2 50%, and PEEP of 5. Blood gases show a PaO2 of 94, PaCO2 41, and a pH 7.45. The patient's currently on propofol at 60 g per kilogram per minute, as well as lactated Ringer's at 20 mL an hour. The goal today is a daily interruption of sedation and spontaneous breathing trial. The patient has a history of hypertension, and a history of herniated disc, with radiculopathy. Current white blood count is 13.1, hemoglobin 12.2, hematocrit 35.2, and platelet count 208,000. Sodium is 137, potassium 4.2, chlorides 105, CO2 26, anion gap 6, BUN 14, and creatinine 0.56. Chest x-ray shows some bilateral patchy infiltrates, which may relate to either fluid overload and/or atelectasis. On 11/21/2020 patient seen in follow-up in intensive care unit, he was extubated yesterday on 11/20/2020. This morning he sitting up in the recliner, looks comfortable, no signs of any respiratory difficulty, room air pulse ox is 93%, patient has a catering is running at 20 ML per hour, no other drips, his average pain score is 5 or 6 and patient states it is tolerable. He is currently being managed with a combination of Percocet and IV Dilaudid for breakthrough pain, appears to be fairly comfortable. He is awake and alert, oriented 3, oriented 3, denies any specific complaints, today's labs have been reviewed showing white blood cell count of 10.8, hemoglobin is 11, sodium is 139, potassium is 3.7, chloride is 106, CO2 is 31, AST is 163, ALT is 60, alkaline phosphatase is 46. patient is on Unasyn and vancomycin per orthopedic surgery. She has had no fever or chills. Objective - Vital Signs Vital signs: Vital Signs Temp 97.9 F 11/21/20 04:00 Pulse 93 11/21/20 07:00 Resp 10 L 11/21/20 07:00 BP 116/95 11/21/20 07:00 Pulse Ox 94 L 11/21/20 07:00 Intake & Output 11/20/20 11/21/20 11/21/20 18:59 06:59 18:59 Intake Total 496 2793 483 Output Total 1250 1150 30 Balance -754 1643 453 Weight 140 kg Intake: IV 236 1353 3 Ampicillin-Sulbactam 3 gm 100 200 In Sodium Chloride 0.9% 100 ml @ 200 mls/hr IVPB Q6H [facility] Rx#:[id number] Lactated Ringers 1,000 ml 100 120 @ 0 mls/hr IV .[facility] ONE Rx#:[id number] Vancomycin 1,750 mg In 1000 Sodium Chloride 0.9% 500 ml 500 ml @ 167 mls/hr IVPB Q8H [facility] Rx#: [id number] pressure bag 36 33 3 Intake, IV Titration 260 Amount Lactated Ringers 1,000 ml 160 @ 0 mls/hr IV .[facility] Rx#:[id number] propofoL 500 mg In Empty 100 Bag 1 bag @ Titrate IV . Q0M [facility] Rx#:[id number] Oral 1440 480 Output: Drainage 160 95 Lower Medial Back 70 0 Right Lower Posterior 90 95 Back Urine 1090 1055 30 Other: Voiding Method Indwelling Catheter Indwelling Catheter ABP, PAP, CO, CI - Last Documented Arterial Blood Pressure 121/71 - Exam GENERAL EXAM: Alert, obese, 45-year-old white male, on room air with a pulse ox of 93%, sitting up in the recliner, appears comfortable in no apparent distress. HEAD: Normocephalic/atraumatic. EYES: Normal reaction of pupils, equal size. Conjunctiva pink, sclera white. NOSE: Clear with pink turbinates. THROAT: No erythema or exudates. NECK: No masses, no JVD, no thyroid enlargement, no adenopathy. CHEST: No chest wall deformity. Symmetrical expansion. LUNGS: Equal air entry with no crackles, wheeze, rhonchi or dullness. CVS: Regular rate and rhythm, normal S1 and S2, no gallops, no murmurs, no rubs ABDOMEN: Soft, nontender. No hepatosplenomegaly, normal bowel sounds, no guarding or rigidity. EXTREMITIES: No clubbing, no edema, no cyanosis, 2+ pulses and upper and lower extremities. MUSCULOSKELETAL: Muscle strength and tone normal. SPINE: No scoliosis or deformity SKIN: No rashes CENTRAL NERVOUS SYSTEM: Alert and oriented -3. No focal deficits, tone is normal in all 4 extremities. PSYCHIATRIC: Alert and oriented -3. Appropriate affect. Intact judgment and insight. - Labs CBC & Chem 7: 11/21/20 05:47 11/21/20 05:47 Labs: Abnormal Lab Results - Last 24 Hours (Table) 11/21/20 11/21/20 Range/Units 05:47 05:47 WBC 10.8 H (3.8-10.6) k/uL RBC 3.70 L (4.30-5.90) m/uL Hgb 11.0 L (13.0-17.5) gm/dL Hct 35.2 L (39.0-53.0) % Neutrophils # 7.9 H (1.3-7.7) k/uL Carbon Dioxide 31 H (22-30) mmol/L Creatinine 0.57 L (0.66-1.25) mg/dL Calcium 8.3 L (8.4-10.2) mg/dL AST 163 H (17-59) U/L ALT 60 H (4-49) U/L Total Protein 5.1 L (6.3-8.2) g/dL Albumin 2.7 L (3.5-5.0) g/dL Microbiology - Last 24 Hours (Table) 11/19/20 14:00 Gram Stain - Preliminary Back Wound Culture - Preliminary 11/19/20 14:00 Gram Stain - Preliminary Back Wound Culture - Preliminary 11/19/20 14:00 Gram Stain - Preliminary Back Tissue Culture - Preliminary 11/19/20 14:00 Gram Stain - Preliminary Back Wound Culture - Preliminary 11/19/20 14:00 Gram Stain - Preliminary Back Wound Culture - Preliminary 11/19/20 14:00 Gram Stain - Preliminary Back Wound Culture - Preliminary 11/19/20 14:00 Gram Stain - Preliminary Back Wound Culture - Preliminary 11/18/20 12:10 Blood Culture - Preliminary Blood No Growth after 48 hours Assessment and Plan Plan: #1. Discitis and osteomyelitis at L45, status post incision and drainage with irrigation and debridement, of the lumbar spine with evacuation of epidural phlegmon, fusion of L4-S1 with placement of antibiotic cement and antibiotic beads #2. Routine postoperative ventilator management, patient was extubated on post operative day #1 #3. History of essential hypertension #4. Discitis and osteomyelitis, L4-L5 #5. History of chronic constipation #6. Morbid obesity #7. History of chronic tobacco use Plan: Patient was successfully weaned and extubated from mechanical ventilator yesterday, he is tolerating extubation quite well, encourage deep breathing and coughing, incentive spirometry use, his pain is fairly well controlled, physical therapy evaluation, antibiotics per orthopedic surgery, so far all cultures are negative, no fever or chills, by signs are stable, patient is stable to go out of intensive care unit today to general medical floor. I performed a history & physical examination of the patient and discussed their management with my nurse practitioner, Lyndsey Witt. I reviewed the nurse practitioner's note and agree with the documented findings and plan of care. Lung sounds are positive for diminished breath sounds. The findings and the impression was discussed with the patient. I attest to the documentation by the nurse practitioner. Time with Patient: Greater than 30
--- NOTE | 2020-11-21 10:15 | XR ---
EXAMINATION TYPE: XR chest 1V portable DATE OF EXAM: 11/21/2020 COMPARISON: Prior chest 11/20/2020 HISTORY: Extubated, abnormal chest x-ray TECHNIQUE: Single frontal view of the chest is obtained. FINDINGS: Endotracheal tube and NG tube have been removed. Right jugular central venous catheter rem ains in place, distal tip is in the right atrium. There is no evident pneumothorax or pleural effusio n. There is interval improved aeration within the lungs, improved lung volume. Cardiac mediastinal si lhouette is within normal limits accounting for rotation. Platelike atelectatic changes in the left m idlung. IMPRESSION: Extubation, improvement in aeration.
--- NOTE | 2020-11-21 13:37 | PN ---
PROGRESS NOTE DATE OF SERVICE: 11/21/2020 REASON FOR FOLLOWUP: Lumbosacral spine abscess. INTERVAL HISTORY: The patient is currently afebrile. Pain to the lumbosacral spine is currently controlled. No chest pain, shortness of breath or cough. No abdominal pain or diarrhea. PHYSICAL EXAMINATION: Blood pressure 121/86, pulse 75, temperature 98. She is 95% on room air. General description is a middle-aged male lying in bed in no distress. RESPIRATORY SYSTEM: Unlabored breathing, clear to auscultation anteriorly. HEART: S1, S2. Regular rate and rhythm. ABDOMEN: Soft, no tenderness. LABS: Hemoglobin 11, white count 10.8. BUN of 13, creatinine 0.57. Culture so far negative. DIAGNOSTIC IMPRESSION AND PLAN: Patient with lumbosacral spine abscess in this patient status post surgical drainage. Cultures will be followed, so far pending. The patient is covered with Unasyn and vancomycin to continue adjusting it further based on culture report. Continue supportive care. MMODL / IJN: [id number] /
--- NOTE | 2020-11-21 15:31 | P.PN ---
Subjective Progress Note Date: 11/21/20 (delayed charting seen at 0945) Principal diagnosis: back pain Patient is a 45-year-old male with a history of chronic low back pain status post L4-5 decompression with revision and microdiscectomy, right sided laminotomy with microdiscectomy L5-S1 on 10/01/2020, hypertension, and tobacco abuse who was sent in by Dr. Jama for direct admission due to osteomyelitis. Patient had been hospitalized here on 11/16 due to concerns for infection. During that hospital stay he had underwent an MRI of the spine which showed L4 5 discitis with osteomyelitis, residual disc herniation as well as large phlegmon measuring 9 x 5 cm. During that hospital stay he ultimately left AGAINST MEDICAL ADVICE with a less than 24-hour hospital stay. He had also been seen for his back pain at [facility] where he underwent a CT but they did not see any definitive process per patient. He continued to have worsening back pain and therefore was admitted by Dr. Jama. He was started on Unasyn and vancomycin. Infectious disease as consulted and agreed with current antibiotics. He underwent surgery on 11/19 with I and D, antibiotic beads and cement. Cultures were taken. He was transferred to the ICU Intubated after surgery. He self extubated on the morning of 11/20. He continued to improve. Patient seen and examined at bedside. He was initially intubated and sedated. He self extubated and was crying and complaining of pain, nurse was at bedside. General: non toxic, mild distress due to pain, appears at stated age Derm: warm, dry Head: atraumatic, normocephalic, symmetric Eyes: EOMI, no lid lag, anicteric sclera Mouth: no lip lesion, mucus membranes moist Cardiovascular: S1S2 reg, no murmur, positive posterior tibial pulse bilateral, Lungs: CTA bilateral, no rhonchi, no rales , no accessory muscle use Abdominal: soft, non tender to palpation no guarding, no appreciable organomegaly Ext: no gross muscle atrophy, no edema, no contractures Neuro: CN II-XI grossly intact, no focal neuro deficits, dressing in place over Lumbar spine no soak through, SMITA drain X 3 with sanganeous drainage Psych: Alert, oriented, appropriate affect 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, s/p surgery 11/19 with I and D antibiotic beads and cement with fusion -Continue with Agnieszka Shore -ID consultation. Patient will likely need PICC line on discharge for 6-12 weeks of IV antibiotics -Blood cultures negative to date -Pain control -Follow CRP -await repeat cultures Acute blood loss anemia - follow CBC - anticipated outcome of surgery - s/p 1 unit pRBC Hypertension, controlled -resume hydrochlorothiazide -Continue with losartan and atenolol -Follow blood pressures Constipation -Continue with Senokot and MiraLAX Tobacco abuse -Cessation -Nicotine replacement Obesity with BMI 32.6 -Outpatient structured weight loss Hypokalemia, resolved Thank you for allowing us to participate in the care of this pleasant patient. Do not hesitate to contact us with questions. Someone can be reached from the [facility] hospitalist group all hours of the day at [phone] or via [email or web address]. Objective - Vital Signs Vital signs: Vital Signs Temp 98.2 F 11/21/20 14:00 Pulse 82 11/21/20 14:00 Resp 22 11/21/20 14:00 BP 136/91 11/21/20 14:00 Pulse Ox 94 L 11/21/20 14:00 Intake & Output 11/20/20 11/21/20 11/21/20 18:59 06:59 18:59 Intake Total 496 2793 829 Output Total 1250 1150 90 Balance -754 1643 739 Weight 140 kg Intake: IV 236 1353 109 Ampicillin-Sulbactam 3 gm 100 200 100 In Sodium Chloride 0.9% 100 ml @ 200 mls/hr IVPB Q6H [facility] Rx#:[id number] Lactated Ringers 1,000 ml 100 120 @ 0 mls/hr IV .STK-[facility] ONE Rx#:[id number] Vancomycin 1,750 mg In 1000 Sodium Chloride 0.9% 500 ml 500 ml @ 167 mls/hr IVPB Q8H [facility] Rx#: [id number] pressure bag 36 33 9 Intake, IV Titration 260 Amount Lactated Ringers 1,000 ml 160 @ 0 mls/hr IV .[facility] Rx#:[id number] propofoL 500 mg In Empty 100 Bag 1 bag @ Titrate IV . Q0M [facility] Rx#:[id number] Oral 1440 720 Output: Drainage 160 95 Lower Medial Back 70 0 Right Lower Posterior 90 95 Back Urine 1090 1055 90 Other: Voiding Method Indwelling Catheter Indwelling Catheter Indwelling Catheter ABP, PAP, CO, CI - Last Documented Arterial Blood Pressure 121/71 - Labs CBC & Chem 7: 11/21/20 05:47 11/21/20 05:47 Labs: Abnormal Lab Results - Last 24 Hours (Table) 11/21/20 11/21/20 Range/Units 05:47 05:47 WBC 10.8 H (3.8-10.6) k/uL RBC 3.70 L (4.30-5.90) m/uL Hgb 11.0 L (13.0-17.5) gm/dL Hct 35.2 L (39.0-53.0) % Neutrophils # 7.9 H (1.3-7.7) k/uL Carbon Dioxide 31 H (22-30) mmol/L Creatinine 0.57 L (0.66-1.25) mg/dL Calcium 8.3 L (8.4-10.2) mg/dL AST 163 H (17-59) U/L ALT 60 H (4-49) U/L Total Protein 5.1 L (6.3-8.2) g/dL Albumin 2.7 L (3.5-5.0) g/dL Microbiology - Last 24 Hours (Table) 11/18/20 12:10 Blood Culture - Preliminary Blood No Growth after 72 hours 11/19/20 14:00 Gram Stain - Preliminary Back Wound Culture - Preliminary 11/19/20 14:00 Gram Stain - Preliminary Back Wound Culture - Preliminary 11/19/20 14:00 Gram Stain - Preliminary Back Tissue Culture - Preliminary 11/19/20 14:00 Gram Stain - Preliminary Back Wound Culture - Preliminary 11/19/20 14:00 Gram Stain - Preliminary Back Wound Culture - Preliminary 11/19/20 14:00 Gram Stain - Preliminary Back Wound Culture - Preliminary 11/19/20 14:00 Gram Stain - Preliminary Back Wound Culture - Preliminary
[2020-11-21] MEDS: IPRATROPIUM-ALBUTEROL 3 ML NEB INHALATION PRN (18:08)
[2020-11-22] MEDS: ALPRAZolam 0.5 MG TAB PO PRN (00:02)
[2020-11-22] MEDS: 0.9% NACL WITH KCL 20 MEQ/L 1,000 ML IV SCH (00:14)
[2020-11-22] MEDS: HYDROmorphone 1 MG/ML 1 ML SYRINGE IVP PRN ×3 (02:45→15:33)
[2020-11-22] MEDS: AMPICILLIN-SULBACTAM 3 GM in SODIUM CHLORIDE 0.9% 100 ML IVPB SCH ×4 (02:46→21:00)
[2020-11-22] MEDS ORDERED: VANCOMYCIN TROUGH DUE 1 EACH MISC MISCELLANE ONE (05:00)
[2020-11-22] MEDS: oxyCODONE-APAP 10-325MG 1 EACH TAB PO SCH ×5 (05:43→20:58)
[2020-11-22] MEDS: VANCOMYCIN 1,750 MG in SODIUM CHLORIDE 0.9% 500 ML 500 ML IVPB SCH ×3 (06:12→21:00)
[2020-11-22 06:28] LABS: HGB 11.1 gm/dL (13.0-17.5); MCH 30.2 pg (25.0-35.0); MCHC 32.7 g/dL (31.0-37.0); MCV 92.2 fL (80.0-100.0); Mean Platelet Volume 7.5; Platelet Count 246 k/uL (150-450); RBC 3.69 m/uL (4.30-5.90); RDW 13.5 % (11.5-15.5); WBC 9.6 k/uL (3.8-10.6)
[2020-11-22 07:24] LABS: ALT 68 U/L (4-49); AST 117 U/L (17-59); African American GFR (CKD) >90 (>60 ml/min/1.73 sqM); Albumin 2.9 g/dL (3.5-5.0); Alkaline Phosphatase 55 U/L (38-126); Anion Gap 5 mmol/L; Blood Urea Nitrogen 11 mg/dL (9-20); Calcium 8.7 mg/dL (8.4-10.2); Carbon Dioxide 32 mmol/L (22-30); Chloride 105 mmol/L (98-107); Glucose 87 mg/dL (74-99); Non-African American GFR(CKD) >90 (>60 ml/min/1.73 sqM); Sodium 142 mmol/L (137-145); Total Bilirubin 0.4 mg/dL (0.2-1.3); Total Protein 5.4 g/dL (6.3-8.2)
[2020-11-22 07:40] LABS: C Reactive Protein 174.9 mg/L (<10.0)
[2020-11-22] MEDS: LOSARTAN 50 MG TAB PO SCH (08:14)
[2020-11-22] MEDS: GABAPENTIN 300 MG CAP PO SCH ×3 (08:17→20:59)
[2020-11-22] MEDS: CYCLOBENZAPRINE 10 MG TAB PO SCH ×3 (08:17→21:00)
[2020-11-22] MEDS: CITALOPRAM HYDROBROMIDE 20 MG TAB PO SCH (08:17)
[2020-11-22] MEDS: hydroCHLOROthiazide 25 MG TAB PO SCH (08:20)
[2020-11-22] MEDS: atenoloL 50 MG TAB PO SCH (08:20)
[2020-11-22] MEDS: polyethylene glycoL 3350 17 GM POWD.PACK PO SCH (08:20)
[2020-11-22] MEDS ORDERED: BENZOCAINE/MENTHOL LOZENG 1 EACH LOZENGE MUCOUS MEM PRN (08:58)
--- NOTE | 2020-11-22 09:11 | P.PN ---
Subjective Progress Note Date: 11/22/20 Principal diagnosis: L4 5 and L5-S1 osteo-discitis with epidural phlegmon status post L4 to S1 revision decompression Patient seen and examined this morning. He is lying in bed. He states he was just up for an hour. He is somewhat saddened this morning and states that he wants to leave. He had talked with medicine who I spoke with in the hallway who said that he wants to leave AMA. We tried to coax him out of this. He seems very [place] this morning. When asked him what the matter was he stated he just wanted to go home. Currently his pain is controlled O however it does wax and wane. He denies any new symptoms denies any new bowel bladder issues no new peroneal numbness or tingling no new numbness or tingling in the legs no new weakness. Denies any fevers chills shortness of breath or chest pain at this time. Objective - Vital Signs Vital signs: Vital Signs Temp 97.3 F L 11/22/20 07:13 Pulse 75 11/22/20 07:13 Resp 12 11/22/20 07:13 BP 156/95 11/22/20 07:13 Pulse Ox 95 11/22/20 07:13 Intake & Output 11/21/20 11/22/20 11/22/20 18:59 06:59 18:59 Intake Total 2389 Output Total 90 60 30 Balance 2299 -60 -30 Intake: IV 709 Ampicillin-Sulbactam 3 gm 200 In Sodium Chloride 0.9% 100 ml @ 200 mls/hr IVPB Q6H [facility] Rx#:[id number] Vancomycin 1,750 mg In 500 Sodium Chloride 0.9% 500 ml 500 ml @ 167 mls/hr IVPB Q8H [facility] Rx#: [id number] pressure bag 9 Oral 1680 Output: Drainage 60 30 Back 60 SMITA 2 30 Urine 90 Other: Voiding Method Indwelling Catheter Toilet # Voids 2 2 ABP, PAP, CO, CI - Last Documented Arterial Blood Pressure 121/71 - Exam Patient is alert and oriented 3 appears well-nourished well-hydrated is in no acute distress. They does not appear septic. On exam the patient has no tenderness to palpation of her thoracic or lumbar spine. There is no edema or ballottement sign. They have good strength in her lower extremities with 5 out of 5 dorsiflexion plantar flexion EHL and FHL bilaterally. Upper extremities show 5/5 strength in all major muscle groups. There is FROM that is painless of the b/l UE and LE in all major joints. They are intact to light touch sensation in L2 to S1 nerve distribution. Patient has palpable dorsalis pedis was posterior tibial pulses. Compartments are soft and compressible. Patient shows a negative Homans, Zavala's, negative Babinski's negative clonus bilaterally. negative straight leg raise bilaterally. No tensioning signs.Cranial nerves II through XII are grossly intact. Overall alignment is well-maintained in the sag ittal coronal planes. Dressing is removed today. Incision is clean dry and intact drains are in place. There is no drainage. There is no purulence. There is no erythema or ecchymosis or edema. Stitches are in place. Incision is redressed with Telfa and tape - Labs CBC & Chem 7: 11/22/20 05:38 11/22/20 05:38 Labs: Abnormal Lab Results - Last 24 Hours (Table) 11/22/20 11/22/20 Range/Units 05:38 05:38 RBC 3.69 L (4.30-5.90) m/uL Hgb 11.1 L (13.0-17.5) gm/dL Hct 34.0 L (39.0-53.0) % Carbon Dioxide 32 H (22-30) mmol/L AST 117 H (17-59) U/L ALT 68 H (4-49) U/L C-Reactive Protein 174.9 H (<10.0) mg/L Total Protein 5.4 L (6.3-8.2) g/dL Albumin 2.9 L (3.5-5.0) g/dL Microbiology - Last 24 Hours (Table) 11/19/20 14:00 Anaerobic Culture - Preliminary Back 11/19/20 14:00 Anaerobic Culture - Preliminary Back 11/19/20 14:00 Anaerobic Culture - Preliminary Back 11/19/20 14:00 Anaerobic Culture - Preliminary Back 11/19/20 14:00 Anaerobic Culture - Preliminary Back 11/19/20 14:00 Anaerobic Culture - Preliminary Back 11/19/20 14:00 Gram Stain - Final Back Wound Culture - Final 11/19/20 14:00 Gram Stain - Final Back Wound Culture - Final 11/19/20 14:00 Gram Stain - Final Back Wound Culture - Final 11/19/20 14:00 Gram Stain - Final Back Wound Culture - Final 11/19/20 14:00 Gram Stain - Preliminary Back Tissue Culture - Preliminary Coagulase Negative Staph 11/19/20 14:00 Gram Stain - Final Back Wound Culture - Final 11/19/20 14:00 Gram Stain - Final Back Wound Culture - Final 11/18/20 12:10 Blood Culture - Preliminary Blood No Growth after 72 hours Assessment and Plan Assessment: 45-year-old male with L4 5 L5-S1 osteo-discitis with epidural phlegmon postoperative day 3 from irrigation debridement L4 to S1 decompression and fusion Plan: -Appreciate medicine management. -Pain control: Adequate at this time -Aggressive ambulation protocol. OOB with all meals. OOB or in chair 4-5x daily. -PT/OT -TEDs, SCDs, mechanical ppx. OK for heparin today. Early ambulation is best. -GI ppx. -Computed tomography scan of the lumbar spine is reviewed. Hardware in good position. Decompression adequate. Cage is in good position. Antibiotics noted -Trend labs. -Increase activity when necessary -ID recs for abx, await final cx. Cont with current regiment. -Dispo: Pending. Would anticipate home with home health care and infusions on Wednesday
[2020-11-22] MEDS ORDERED: NICOTINE POLACRILEX 2 MG GUM BUCCAL PRN (12:03)
[2020-11-22] MEDS ORDERED: NICOTINE 21MG/24HR PATCH TRANSDERM PRN (12:03)
--- NOTE | 2020-11-22 12:04 | P.PN ---
Subjective Progress Note Date: 11/22/20 (delayed charting seen at 0930) Principal diagnosis: back pain Patient is a 45-year-old male with a history of chronic low back pain status post L4-5 decompression with revision and microdiscectomy, right sided laminotomy with microdiscectomy L5-S1 on 10/01/2020, hypertension, and tobacco abuse who was sent in by Dr. Jama for direct admission due to osteomyelitis. Patient had been hospitalized here on 11/16 due to concerns for infection. During that hospital stay he had underwent an MRI of the spine which showed L4 5 discitis with osteomyelitis, residual disc herniation as well as large phlegmon measuring 9 x 5 cm. During that hospital stay he ultimately left AGAINST MEDICAL ADVICE with a less than 24-hour hospital stay. He had also been seen for his back pain at [facility] where he underwent a CT but they did not see any definitive process per patient. He continued to have worsening back pain and therefore was admitted by Dr. Jama. He was started on Unasyn and vancomycin. Infectious disease as consulted and agreed with current antibiotics. He underwent surgery on 11/19 with I and D, antibiotic beads and cement. Cultures were taken. He was transferred to the ICU Intubated after surgery. He self extubated on the morning of 11/20. He continued to improve. Transferred to [facility] on 11/21/20. He continued to improve but frustrated with length of stay Patient seen and examined at bedside. He was initially intubated and sedated. He self extubated and was crying and complaining of pain, nurse was at bedside. General: non toxic, mild distress due to pain, appears at stated age Derm: warm, dry Head: atraumatic, normocephalic, symmetric Eyes: EOMI, no lid lag, anicteric sclera Mouth: no lip lesion, mucus membranes moist Cardiovascular: S1S2 reg, no murmur, positive posterior tibial pulse bilateral, Lungs: CTA bilateral, no rhonchi, no rales , no accessory muscle use Abdominal: soft, non tender to palpation no guarding, no appreciable org anomegaly Ext: no gross muscle atrophy, no edema, no contractures Neuro: CN II-XI grossly intact, no focal neuro deficits, dressing in place over Lumbar spine no soak through, SMITA drain X 3 with sanganeous drainage Psych: Alert, oriented, appropriate affect 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, s/p surgery 2/2 with I and D antibiotic beads and cement with fusion -Continue with KacienAgnieszka -ID consultation. Patient will likely need PICC line today for 6-12 weeks of IV antibiotics -Blood cultures negative to date -Pain control -Follow CRP -await repeat cultures Acute blood loss anemia - follow CBC - anticipated outcome of surgery - s/p 1 unit pRBC Hypertension, controlled -resume hydrochlorothiazide -Continue with losartan and atenolol -Follow blood pressures Constipation -Continue with Senokot and MiraLAX Tobacco abuse -Cessation -Nicotine replacement Obesity with BMI 32.6 -Outpatient structured weight loss Hypokalemia, resolved Hope for discharge early next week Thank you for allowing us to participate in the care of this pleasant patient. Do not hesitate to contact us with questions. Someone can be reached from the [facility] hospitalist group all hours of the day at [phone] or via [employer]. Objective - Vital Signs Vital signs: Vital Signs Temp 97.3 F L 11/22/20 07:13 Pulse 75 11/22/20 07:13 Resp 12 11/22/20 07:13 BP 156/95 11/22/20 07:13 Pulse Ox 95 11/22/20 07:13 Intake & Output 11/21/20 11/22/20 11/22/20 18:59 06:59 18:59 Intake Total 2389 Output Total 90 60 30 Balance 2299 -60 -30 Intake: IV 709 Ampicillin-Sulbactam 3 gm 200 In Sodium Chloride 0.9% 100 ml @ 200 mls/hr IVPB Q6H ZECHARIAH Rx#:[id number] Vancomycin 1,750 mg In 500 Sodium Chloride 0.9% 500 ml 500 ml @ 167 mls/hr IVPB Q8H ZECHARIAH Rx#: [id number] pressure bag 9 Oral 1680 Output: Drainage 60 30 Back 60 SMITA 2 30 Urine 90 Other: Voiding Method Indwelling Catheter Toilet # Voids 2 2 ABP, PAP, CO, CI - Last Documented Arterial Blood Pressure 121/71 - Labs CBC & Chem 7: 11/22/20 05:38 11/22/20 05:38 Labs: Abnormal Lab Results - Last 24 Hours (Table) 11/22/20 11/22/20 Range/Units 05:38 05:38 RBC 3.69 L (4.30-5.90) m/uL Hgb 11.1 L (13.0-17.5) gm/dL Hct 34.0 L (39.0-53.0) % Carbon Dioxide 32 H (22-30) mmol/L AST 117 H (17-59) U/L ALT 68 H (4-49) U/L C-Reactive Protein 174.9 H (<10.0) mg/L Total Protein 5.4 L (6.3-8.2) g/dL Albumin 2.9 L (3.5-5.0) g/dL Microbiology - Last 24 Hours (Table) 11/19/20 14:00 Anaerobic Culture - Preliminary Back 11/19/20 14:00 Anaerobic Culture - Preliminary Back 11/19/20 14:00 Anaerobic Culture - Preliminary Back 11/19/20 14:00 Anaerobic Culture - Preliminary Back 11/19/20 14:00 Anaerobic Culture - Preliminary Back 11/19/20 14:00 Anaerobic Culture - Preliminary Back 11/19/20 14:00 Gram Stain - Final Back Wound Culture - Final 11/19/20 14:00 Gram Stain - Final Back Wound Culture - Final 11/19/20 14:00 Gram Stain - Final Back Wound Culture - Final 11/19/20 14:00 Gram Stain - Final Back Wound Culture - Final 11/19/20 14:00 Gram Stain - Preliminary Back Tissue Culture - Preliminary Coagulase Negative Staph 11/19/20 14:00 Gram Stain - Final Back Wound Culture - Final 11/19/20 14:00 Gram Stain - Final Back Wound Culture - Final 11/18/20 12:10 Blood Culture - Preliminary Blood No Growth after 72 hours
--- NOTE | 2020-11-22 13:06 | P.PN ---
Subjective Progress Note Date: 11/22/20 HISTORY OF PRESENT ILLNESS This is a 45-year-old male treated for lumbosacral spine abscess. He has been covered with Unasyn and vancomycin. Patient states that his back is sore. He denies any shortness of breath or chest pain. He denies any abdominal pain or diarrhea. Patient has been afebrile, heart rate 75, blood pressure 156/95, pulse ox 95% on room air. WBC 9.6, hemoglobin 11.1. Creatinine 0.67. Multiple wound cultures are in progress. 1 tissue culture from November 19 is quite- negative staph. PHYSICAL EXAMINATION Gen: This is a morbidly obese 45-year-old male. HEENT: Head is atraumatic, normocephalic. NECK: Supple. LUNGS: Clear to auscultation. No wheezes or rhonchi. No intercostal retractions. HEART: Regular rate and rhythm. ABDOMEN: Soft. Bowel sounds are present. No masses. No tenderness. EXTREMITIES: No pedal edema. No calf tenderness. NEUROLOGICAL: Patient is awake, alert and oriented x3. ASSESSMENT Lumbosacral spine abscess PLAN Continue Unasyn 3 g IV piggyback every 6 hours Continue vancomycin, pharmacy dosing Monitor culture reports Continue supportive care The above dictated assessment and findings were discussed with Dr. Gomez. The i mpression and plan of care have been directed as dictated. Genesis Ignacio nurse practitioner acting as scribe for Dr. Gomez. Objective - Vital Signs Vital signs: Vital Signs Temp 97.3 F L 11/22/20 07:13 Pulse 75 11/22/20 07:13 Resp 12 11/22/20 07:13 BP 156/95 11/22/20 07:13 Pulse Ox 95 11/22/20 07:13 Intake & Output 11/21/20 11/22/20 11/22/20 18:59 06:59 18:59 Intake Total 2389 Output Total 90 60 30 Balance 2299 -60 -30 Intake: IV 709 Ampicillin-Sulbactam 3 gm 200 In Sodium Chloride 0.9% 100 ml @ 200 mls/hr IVPB Q6H [facility]ECHARIAH Rx#:[id number] Vancomycin 1,750 mg In 500 Sodium Chloride 0.9% 500 ml 500 ml @ 167 mls/hr IVPB Q8H ZECHARIAH Rx#: [id number] pressure bag 9 Oral 1680 Output: Drainage 60 30 Back 60 SMITA 2 30 Urine 90 Other: Voiding Method Indwelling Catheter Toilet # Voids 2 2 ABP, PAP, CO, CI - Last Documented Arterial Blood Pressure 121/71 - Labs CBC & Chem 7: 11/22/20 05:38 11/22/20 05:38 Labs: Abnormal Lab Results - Last 24 Hours (Table) 11/22/20 11/22/20 Range/Units 05:38 05:38 RBC 3.69 L (4.30-5.90) m/uL Hgb 11.1 L (13.0-17.5) gm/dL Hct 34.0 L (39.0-53.0) % Carbon Dioxide 32 H (22-30) mmol/L AST 117 H (17-59) U/L ALT 68 H (4-49) U/L C-Reactive Protein 174.9 H (<10.0) mg/L Total Protein 5.4 L (6.3-8.2) g/dL Albumin 2.9 L (3.5-5.0) g/dL Microbiology - Last 24 Hours (Table) 11/19/20 14:00 Anaerobic Culture - Preliminary Back 11/19/20 14:00 Anaerobic Culture - Preliminary Back 11/19/20 14:00 Anaerobic Culture - Preliminary Back 11/19/20 14:00 Anaerobic Culture - Preliminary Back 11/19/20 14:00 Anaerobic Culture - Preliminary Back 11/19/20 14:00 Anaerobic Culture - Preliminary Back 11/19/20 14:00 Gram Stain - Final Back Wound Culture - Final 11/19/20 14:00 Gram Stain - Final Back Wound Culture - Final 11/19/20 14:00 Gram Stain - Final Back Wound Culture - Final 11/19/20 14:00 Gram Stain - Final Back Wound Culture - Final 11/19/20 14:00 Gram Stain - Preliminary Back Tissue Culture - Preliminary Coagulase Negative Staph 11/19/20 14:00 Gram Stain - Final Back Wound Culture - Final 11/19/20 14:00 Gram Stain - Final Back Wound Culture - Final 11/18/20 12:10 Blood Culture - Preliminary Blood No Growth after 72 hours
--- NOTE | 2020-11-22 13:26 | P.PN ---
Subjective Progress Note Date: 11/22/20 Principal diagnosis: routine ventilator management, status post I&D and debridement of the lumbar spine This is a 45-year-old male status post incision and drainage with irrigation and debridement of lumbar spine, with evacuation of epidural phlegmon, fusion L4 - S1, with placement antibiotic cement and antibiotic beads and wound VAC placement. The patient could not be extubated after surgery, and came to the intensive care unit on the ventilator. Currently, the patient's on the volume assist control mode, rate 14, tidal volume 500, FiO2 50%, and PEEP of 5. Blood gases show a PaO2 of 94, PaCO2 41, and a pH 7.45. The patient's currently on propofol at 60 g per kilogram per minute, as well as lactated Ringer's at 20 mL an hour. The goal today is a daily interruption of sedation and spontaneous breathing trial. The patient has a history of hypertension, and a history of herniated disc, with radiculopathy. Current white blood count is 13.1, hemoglobin 12.2, hematocrit 35.2, and platelet count 208,000. Sodium is 137, potassium 4.2, chlorides 105, CO2 26, anion gap 6, BUN 14, and creatinine 0.56. Chest x-ray shows some bilateral patchy infiltrates, which may relate to either fluid overload and/or atelectasis. On 11/21/2020 patient seen in follow-up in intensive care unit, he was extubated yesterday on 11/20/2020. This morning he sitting up in the recliner, looks comfortable, no signs of any respiratory difficulty, room air pulse ox is 93%, patient has a catering is running at 20 ML per hour, no other drips, his average pain score is 5 or 6 and patient states it is tolerable. He is currently being managed with a combination of Percocet and IV Dilaudid for breakthrough pain, appears to be fairly comfortable. He is awake and alert, oriented 3, oriented 3, denies any specific complaints, today's labs have been reviewed showing white blood cell count of 10.8, hemoglobin is 11, sodium is 139, potassium is 3.7, chloride is 106, CO2 is 31, AST is 163, ALT is 60, alkaline phosphatase is 46. patient is on Unasyn and vancomycin per orthopedic surgery. She has had no fever or chills. On 11/22/2020 patient seen in follow-up on medical floor, he is awake, in no acute distress, he is up out of bed, ambulating in the room, he is having pain issues, but no difficulty breathing, signs have been stable, he is on room air pulse ox of 95%, she has been afebrile, no growth on cultures thus far, he continues on Zosyn and vancomycin, clinically stable Objective - Vital Signs Vital signs: Vital Signs Temp 97.3 F L 11/22/20 07:13 Pulse 75 11/22/20 07:13 Resp 12 11/22/20 07:13 BP 156/95 11/22/20 07:13 Pulse Ox 95 11/22/20 07:13 Intake & Output 11/21/20 11/22/20 11/22/20 18:59 06:59 18:59 Intake Total 2389 Output Total 90 60 65 Balance 2299 -60 -65 Intake: IV 709 Ampicillin-Sulbactam 3 gm 200 In Sodium Chloride 0.9% 100 ml @ 200 mls/hr IVPB Q6H [facility]ECHARIAH Rx#:[id number] Vancomycin 1,750 mg In 500 Sodium Chloride 0.9% 500 ml 500 ml @ 167 mls/hr IVPB Q8H ZECHARIAH Rx#: [id number] pressure bag 9 Oral 1680 Output: Drainage 60 65 Back 60 SMITA 1 20 SMITA 2 30 SMITA 3 15 Urine 90 Other: Voiding Method Indwelling Catheter Toilet # Voids 2 2 ABP, PAP, CO, CI - Last Documented Arterial Blood Pressure 121/71 - Exam GENERAL EXAM: Alert, obese, 45-year-old white male, on room air with a pulse ox of 93%, sitting up in the recliner, appears comfortable in no apparent distress. HEAD: Normocephalic/atraumatic. EYES: Normal reaction of pupils, equal size. Conjunctiva pink, sclera white. NOSE: Clear with pink turbinates. THROAT: No erythema or exudates. NECK: No masses, no JVD, no thyroid enlargement, no adenopathy. CHEST: No chest wall deformity. Symmetrical expansion. LUNGS: Equal air entry with no crackles, wheeze, rhonchi or dullness. CVS: Regular rate and rhythm, normal S1 and S2, no gallops, no murmurs, no rubs ABDOMEN: Soft, nontender. No hepatosplenomegaly, normal bowel sounds, no guarding or rigidity. EXTREMITIES: No clubbing, no edema, no cyanosis, 2+ pulses and upper and lower extremities. MUSCULOSKELETAL: Muscle strength and tone normal. SPINE: No scoliosis or deformity SKIN: No rashes CENTRAL NERVOUS SYSTEM: Alert and oriented -3. No focal deficits, tone is normal in all 4 extremities. PSYCHIATRIC: Alert and oriented -3. Appropriate affect. Intact judgment and insight. - Labs CBC & Chem 7: 11/22/20 05:38 11/22/20 05:38 Labs: Abnormal Lab Results - Last 24 Hours (Table) 11/22/20 11/22/20 Range/Units 05:38 05:38 RBC 3.69 L (4.30-5.90) m/uL Hgb 11.1 L (13.0-17.5) gm/dL Hct 34.0 L (39.0-53.0) % Carbon Dioxide 32 H (22-30) mmol/L AST 117 H (17-59) U/L ALT 68 H (4-49) U/L C-Reactive Protein 174.9 H (<10.0) mg/L Total Protein 5.4 L (6.3-8.2) g/dL Albumin 2.9 L (3.5-5.0) g/dL Microbiology - Last 24 Hours (Table) 11/19/20 14:00 Anaerobic Culture - Preliminary Back 11/19/20 14:00 Anaerobic Culture - Preliminary Back 11/19/20 14:00 Anaerobic Culture - Preliminary Back 11/19/20 14:00 Anaerobic Culture - Preliminary Back 11/19/20 14:00 Anaerobic Culture - Preliminary Back 11/19/20 14:00 Anaerobic Culture - Preliminary Back 11/19/20 14:00 Gram Stain - Final Back Wound Culture - Final 11/19/20 14:00 Gram Stain - Final Back Wound Culture - Final 11/19/20 14:00 Gram Stain - Final Back Wound Culture - Final 11/19/20 14:00 Gram Stain - Final Back Wound Culture - Final 11/19/20 14:00 Gram Stain - Preliminary Back Tissue Culture - Preliminary Coagulase Negative Staph 11/19/20 14:00 Gram Stain - Final Back Wound Culture - Final 11/19/20 14:00 Gram Stain - Final Back Wound Culture - Final 11/18/20 12:10 Blood Culture - Preliminary Blood No Growth after 72 hours Assessment and Plan Plan: #1. Discitis and osteomyelitis at L45, status post incision and drainage with irrigation and debridement, of the lumbar spine with evacuation of epidural phlegmon, fusion of L4-S1 with placement of antibiotic cement and antibiotic beads #2. Routine postoperative ventilator management, patient was extubated on postoperative day #1 #3. History of essential hypertension #4. Discitis and osteomyelitis, L4-L5 #5. History of chronic constipation #6. Morbid obesity #7. History of chronic tobacco use Plan: Continue encouraging deep breathing and coughing, maintain pain control, vital signs have been stable, patient is on room air, tolerating ambulation, has been stable from pulmonary/critical care perspective, follow on as-needed basis I performed a history & physical examination of the patient and discussed their management with my nurse practitioner, Lyndsey Witt. I reviewed the nurse practitioner's note and agree with the documented findings and plan of care. Lung sounds are positive for diminished breath sounds. The findings and the impression was discussed with the patient. I attest to the documentation by the nurse practitioner. Time with Patient: Less than 30
[2020-11-22] MEDS ORDERED: LIDOCAINE 1% INJ 10MG/ML (20 ML MDV) SQ ONE (14:54)
--- NOTE | 2020-11-22 16:29 | IR ---
EXAMINATION TYPE: IR cvc insert >=5 years DATE OF EXAM: 11/22/2020 COMPARISON: NONE CLINICAL HISTORY: Infection Needs long-term intravenous access for therapy. PROCEDURE: Hand hygiene obtained with soap and water and alcohol-based hand rub. After informed consent, the skin overlying the left basilic vein was localized with ultrasound and no renee to be compressible and patent. An ultrasound image was obtained and submitted on the patient's c hi. The overlying skin was prepped and draped and Lidocaine was used for local anesthesia. A skin rosa was made with a scalpel. Access was gained to the vein under ultrasound guidance with a 21 gau ge needle and a 0.018 inch wire was advanced. Access site was dilated with Peel-Away sheath and cath eter tailored to the appropriate length and advanced such that the distal tip is at the cavoatrial ju nction. Spot image was obtained verifying placement. Catheter was fixed to the skin and a sterile d ressing was placed following hemostasis. Catheter was aspirated and flushed with saline. Patient wa s discharged in stable condition without complication. Maximal barrier technique is utilized. Ultras ound image is documented on the chart. Ultrasound used with sterile technique. Fluoro time and fluoroscopic images submitted to document procedure: 10 intraoperative C-arm images, 0.1 minutes fluoroscopy time IMPRESSION: STATUS POST ULTRASOUND AND FLUOROSCOPIC GUIDED PICC LINE PLACEMENT, READY FOR USE. THIS PROCEDURE WAS PERFORMED BY THE UNDERSIGNED.
[2020-11-22] MEDS: ZOLPIDEM 5 MG TAB PO SCH (20:59)
[2020-11-23] MEDS: oxyCODONE-APAP 10-325MG 1 EACH TAB PO SCH ×6 (00:54→20:30)
[2020-11-23] MEDS: AMPICILLIN-SULBACTAM 3 GM in SODIUM CHLORIDE 0.9% 100 ML IVPB SCH ×2 (03:00→08:44)
[2020-11-23] MEDS: VANCOMYCIN 1,750 MG in SODIUM CHLORIDE 0.9% 500 ML 500 ML IVPB SCH ×3 (06:36→20:30)
[2020-11-23] MEDS: hydroCHLOROthiazide 25 MG TAB PO SCH (08:43)
[2020-11-23] MEDS: atenoloL 50 MG TAB PO SCH (08:43)
[2020-11-23] MEDS: GABAPENTIN 300 MG CAP PO SCH ×3 (08:43→20:30)
[2020-11-23] MEDS: CYCLOBENZAPRINE 10 MG TAB PO SCH ×3 (08:43→20:30)
[2020-11-23] MEDS: LOSARTAN 50 MG TAB PO SCH (08:43)
[2020-11-23] MEDS: polyethylene glycoL 3350 17 GM POWD.PACK PO SCH (08:43)
[2020-11-23] MEDS: CITALOPRAM HYDROBROMIDE 20 MG TAB PO SCH (08:44)
[2020-11-23] MEDS: ALPRAZolam 0.5 MG TAB PO PRN ×2 (10:16→16:46)
[2020-11-23 11:43] LABS: HCT 32.5 % (39.6-50.0); HGB 10.6 g/dL (13.0-17.0); MCH 30.1 pg (27.0-32.0); MCHC 32.6 g/dL (32.0-37.0); MCV 92.3 fL (80.0-97.0); Mean Platelet Volume 10.2 fL (9.5-12.2); Platelet Count 252 X 10*3/uL (140-440); RBC 3.52 X 10*6/uL (4.40-5.60); RDW 13.2 % (11.5-14.5); WBC 8.49 X 10*3/uL (4.50-10.00)
[2020-11-23 11:50] LABS: African American GFR (CKD) 139.7 (60.0-200.0); Albumin 3.3 g/dL (3.80-4.90); Albumin/Globulin Ratio 2.2 (1.60-3.17); Anion Gap 7.7 mmol/L (4.00-12.00); BUN/Creat Ratio 11.67 Ratio (12.00-20.00); Calcium 8.5 mg/dL (8.7-10.3); Carbon Dioxide 34.3 mmol/L (21.6-31.8); Globulin 1.5 g/dL (1.6-3.3); Non-African American GFR(CKD) 120.6 (60.0-200.0); Potassium 3.9 mmol/L (3.5-5.5); Total Bilirubin 0.4 mg/dL (0.2-1.2); Total Protein 4.8 g/dL (6.2-8.2)
--- NOTE | 2020-11-23 12:39 | P.PN ---
Subjective Progress Note Date: 11/23/20 Principal diagnosis: L4 5 and L5-S1 osteo-discitis with epidural phlegmon status post L4 to S1 revision decompression Patient was evaluated today at bedside by myself and Dr. Jama. Prior to going in the room had long discussion with nurse regarding the patient. Patient is seen very agitated, he states that he has not been sleeping well and is very adamant about being discharged to home. At bedside, he is resting comfortably. He states that the pain in the low back is continuing to improve since surgery. He denies any recent fever or chills, lower extremity or upper extremity paresthesias bilaterally, loss of bowel or bladder function, peroneal or genital numbness. He has continued to ambulate around the room utilizing a walker. Objective - Vital Signs Vital signs: Vital Signs Temp 99.5 F 11/23/20 07:33 Pulse 82 11/23/20 07:33 Resp 20 11/23/20 07:33 BP 142/94 11/23/20 07:33 Pulse Ox 96 11/23/20 07:33 Intake & Output 11/22/20 11/23/20 11/23/20 18:59 06:59 18:59 Intake Total 1740 Output Total 65 65 30 Balance -65 1675 -30 Intake: IV 1200 Ampicillin-Sulbactam 3 gm 200 In Sodium Chloride 0.9% 100 ml @ 200 mls/hr IVPB Q6H [facility]ECHARIA[facility] Rx#:[id number] Vancomycin 1,750 mg In 1000 Sodium Chloride 0.9% 500 ml 500 ml @ 167 mls/hr IVPB Q8H [facility]ECHARIAH Rx#: [id number] Oral 540 Output: Drainage 65 65 30 SMITA 1 20 65 10 SMITA 2 30 0 SMITA 3 15 20 Other: Voiding Method Toilet # Voids 3 2 ABP, PAP, CO, CI - Last Documented Arterial Blood Pressure 121/71 - Exam Gen: AOx3, NAD VSS stable at this time Integument: Incision was evaluated today, jeff and stitches are all in good position and condition. There is no active drainage visualized. Drains are all in good position and condition. Palpation: No significant tenderness noted throughout the lower thoracic and lumbar midline and paraspinal region ROM: Full range of motion of all major muscle groups of the bilateral upper and lower extremities Sensory Exam: Senory exam to light touch is intact C5-T1 Senosry exam to light touch is intact L2-S1 Motor: 5 out of 5 strength noted in all major muscle groups of the bilateral upper and lower extremities Reflexes: 2/4 in all UE and LE Negative Jozef's bilaterally Negative Babinski bilaterally Negative clonus bilaterally - Labs CBC & Chem 7: 11/23/20 06:32 11/23/20 06:32 Labs: Abnormal Lab Results - Last 24 Hours (Table) 11/23/20 11/23/20 Range/Units 06:32 06:32 RBC 3.52 L (4.40-5.60) X 10*6/uL Hgb 10.6 L (13.0-17.0) g/dL Hct 32.5 L (39.6-50.0) % Carbon Dioxide 34.3 H (21.6-31.8) mmol/L BUN 7.0 L (9.0-27.0) mg/dL BUN/Creatinine Ratio 11.67 L (12.00-20.00) Ratio Calcium 8.5 L (8.7-10.3) mg/dL AST 62 H (14-35) U/L ALT 57 H (10-49) U/L Lactate Dehydrogenase 378 H (120-246) U/L Total Protein 4.8 L (6.2-8.2) g/dL Albumin 3.30 L (3.80-4.90) g/dL Globulin 1.5 L (1.6-3.3) g/dL Microbiology - Last 24 Hours (Table) 11/19/20 14:00 Gram Stain - Final Back Tissue Culture - Final Staphylococcus epidermidis 11/18/20 12:10 Blood Culture - Preliminary Blood No Growth after 96 hours Assessment and Plan Assessment: Postop day #4 status post L4 5 and L5-S1 osteo-discitis with epidural phlegmon status post L4 to S1 revision decompression Plan: Dr. Jama had a very long discussion with the patient today bedside regarding his current medical state and reason for being in the hospital. We are waiting the final results of the culture/sensitivity to determine the proper antibiotic for outpatient treatment. Dr. Jama explained to the patient every aspect of the current treatment plan, also discussing with the patient has pre-and postop findings. Await culture and sensitivity results, appreciate infectious disease recommen dations for outpatient antibiotics One of the deep drains was pulled at bedside today, fresh bandages were placed. Plan for removal of the remaining drains on 11/24/2020 depending on output Pain control, continue current pain regimen GI and DVT prophylaxis, continue current medication Consult will be placed for pulmonology evaluation for hopeful BiPAP used during inpatient stay. Patient will be advised to follow-up with them in the outpatient setting due to his likely sleep apnea Psychiatric consultation will also be placed due to patient's agitated state and anxiety Continue to work with physical therapy, recommend bed multiple times a day, utilize walker at all times Continue to follow during inpatient stay Time with Patient: Less than 30
--- NOTE | 2020-11-23 12:58 | P.PN ---
Subjective Progress Note Date: 11/23/20 (delayed charting seen [id number]) Principal diagnosis: back pain Patient is a 45-year-old male with a history of chronic low back pain status post L4-5 decompression with revision and microdiscectomy, right sided laminotomy with microdiscectomy L5-S1 on 10/01/2020, hypertension, and tobacco abuse who was sent in by Dr. Jama for direct admission due to osteomyelitis. Patient had been hospitalized here on 11/16 due to concerns for infection. During that hospital stay he had underwent an MRI of the spine which showed L4 5 discitis with osteomyelitis, residual disc herniation as well as large phlegmon measuring 9 x 5 cm. During that hospital stay he ultimately left AGAINST MEDICAL ADVICE with a less than 24-hour hospital stay. He had also been seen for his back pain at [facility] where he underwent a CT but they did not see any definitive process per patient. He continued to have worsening back pain and therefore was admitted by Dr. Jama. He was started on Unasyn and vancomycin. Infectious disease as consulted and agreed with current antibiotics. He underwent surgery on 11/19 with I and D, antibiotic beads and cement. Cultures were taken. He was transferred to the ICU Intubated after surgery. He self extubated on the morning of 11/20. He continued to improve. Transferred to [facility] on 11/21/20. He continued to improve but frustrated with length of stay Patient seen and examined at bedside. He was initially intubated and sedated. He self extubated and was crying and complaining of pain, nurse was at bedside. General: non toxic, mild distress due to pain, appears at stated age Derm: warm, dry Head: atraumatic, normocephalic, symmetric Eyes: EOMI, no lid lag, anicteric sclera Mouth: no lip lesion, mucus membranes moist Cardiovascular: S1S2 reg, no murmur, positive posterior tibial pulse bilateral, Lungs: CTA bilateral, no rhonchi, no rales , no accessory muscle use Abdominal: soft, non tender to palpation no guarding, no appreciable orga nomegaly Ext: no gross muscle atrophy, no edema, no contractures Neuro: CN II-XI grossly intact, no focal neuro deficits, dressing in place over Lumbar spine no soak through, SMITA drain X 3 with sanganeous drainage Psych: Alert, oriented, appropriate affect 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, s/p surgery 2/2 with I and D antibiotic beads and cement with fusion -Continue with Unasyn, [place] -ID consultation. Patient will likely need PICC line today for 6-12 weeks of IV antibiotics -Blood cultures negative to date -Pain control -Follow CRP -await repeat cultures Acute blood loss anemia - follow CBC - anticipated outcome of surgery - s/p 1 unit pRBC Hypertension, controlled -Continue with hydrochlorothiazide, losartan and atenolol -Follow blood pressures Constipation -Continue with Senokot and MiraLAX Tobacco abuse -Cessation -Nicotine replacement Obesity with BMI 32.6 -Outpatient structured weight loss Possible RADHA - Outpatient follow-up with Pulm for sleep study Hypokalemia, resolved Hope for discharge early next week Thank you for allowing us to participate in the care of this pleasant patient. Do not hesitate to contact us with questions. Someone can be reached from the [facility] hospitalist group all hours of the day at [phone] or via [employer]. Objective - Vital Signs Vital signs: Vital Signs Temp 99.5 F 11/23/20 07:33 Pulse 82 11/23/20 07:33 Resp 20 11/23/20 07:33 BP 142/94 11/23/20 07:33 Pulse Ox 96 11/23/20 07:33 Intake & Output 11/22/20 11/23/20 11/23/20 18:59 06:59 18:59 Intake Total 1740 Output Total 65 65 30 Balance -65 1675 -30 Intake: IV 1200 Ampicillin-Sulbactam 3 gm 200 In Sodium Chloride 0.9% 100 ml @ 200 mls/hr IVPB Q6H ZECHARIAH Rx#:[id number] Vancomycin 1,750 mg In 1000 Sodium Chloride 0.9% 500 ml 500 ml @ 167 mls/hr IVPB Q8H ZECHARIAH Rx#: [id number] Oral 540 Output: Drainage 65 65 30 SMITA 1 20 65 10 SMITA 2 30 0 SMITA 3 15 20 Other: Voiding Method Toilet # Voids 3 2 ABP, PAP, CO, CI - Last Documented Arterial Blood Pressure 121/71 - Labs CBC & Chem 7: 11/23/20 06:32 11/23/20 06:32 Labs: Abnormal Lab Results - Last 24 Hours (Table) 11/23/20 11/23/20 Range/Units 06:32 06:32 RBC 3.52 L (4.40-5.60) X 10*6/uL Hgb 10.6 L (13.0-17.0) g/dL Hct 32.5 L (39.6-50.0) % Carbon Dioxide 34.3 H (21.6-31.8) mmol/L BUN 7.0 L (9.0-27.0) mg/dL BUN/Creatinine Ratio 11.67 L (12.00-20.00) Ratio Calcium 8.5 L (8.7-10.3) mg/dL AST 62 H (14-35) U/L ALT 57 H (10-49) U/L Lactate Dehydrogenase 378 H (120-246) U/L Total Protein 4.8 L (6.2-8.2) g/dL Albumin 3.30 L (3.80-4.90) g/dL Globulin 1.5 L (1.6-3.3) g/dL Microbiology - Last 24 Hours (Table) 11/19/20 14:00 Gram Stain - Final Back Tissue Culture - Final Staphylococcus epidermidis 11/18/20 12:10 Blood Culture - Preliminary Blood No Growth after 96 hours
[2020-11-23] MEDS: IPRATROPIUM-ALBUTEROL 3 ML NEB INHALATION PRN (15:41)
--- NOTE | 2020-11-23 19:17 | PN ---
PROGRESS NOTE DATE OF SERVICE: 11/23/2020 REASON FOR FOLLOWUP: Lumbosacral spine abscess. INTERVAL HISTORY: The patient is currently afebrile. The patient is breathing comfortably. The patient's pain to the lumbosacral area has decreased. The patient denies any chest pain. No shortness of breath. No cough. No abdominal pain and no diarrhea. PHYSICAL EXAMINATION: Blood pressure 134/88, pulse of 71, temperature 98. He is 93% on room air. General description is a middle-aged male lying in bed in no distress. Respiratory system: Unlabored breathing clear to auscultation anteriorly. Heart S1, S2. Regular rate and rhythm. Abdomen soft, no tenderness. LABS: Hemoglobin is 10.7, white count 8.49, BUN of 7, creatinine 0.6. One of the cultures came back with staph epidermidis and another culture is currently pending. DIAGNOSTIC IMPRESSION AND PLAN: Patient with lumbosacral spine paraspinal abscess status post drainage with extensive back surgery. Culture Staph epi. Patient is covered with vancomycin which will be discontinued. Possible DC on Wednesday. Continue supportive care. MMODL / IJN: [id number] /
[2020-11-23] MEDS: ZOLPIDEM 5 MG TAB PO SCH (20:30)
[2020-11-24] MEDS: oxyCODONE-APAP 10-325MG 1 EACH TAB PO SCH ×6 (00:27→20:25)
[2020-11-24] MEDS: VANCOMYCIN 1,750 MG in SODIUM CHLORIDE 0.9% 500 ML 500 ML IVPB SCH ×3 (05:06→20:25)
[2020-11-24] MEDS: GABAPENTIN 300 MG CAP PO SCH ×3 (08:01→20:25)
[2020-11-24] MEDS: atenoloL 50 MG TAB PO SCH (08:02)
[2020-11-24] MEDS: LOSARTAN 50 MG TAB PO SCH (08:02)
[2020-11-24] MEDS: hydroCHLOROthiazide 25 MG TAB PO SCH (08:02)
[2020-11-24] MEDS: CYCLOBENZAPRINE 10 MG TAB PO SCH ×3 (08:02→20:25)
[2020-11-24] MEDS: CITALOPRAM HYDROBROMIDE 20 MG TAB PO SCH (08:02)
[2020-11-24] MEDS: polyethylene glycoL 3350 17 GM POWD.PACK PO SCH (08:03)
[2020-11-24 10:37] LABS: HCT 32.7 % (39.6-50.0); HGB 10.8 g/dL (13.0-17.0); MCH 30.2 pg (27.0-32.0); MCV 91.3 fL (80.0-97.0); Mean Platelet Volume 10.4 fL (9.5-12.2); Platelet Count 261 X 10*3/uL (140-440); RBC 3.58 X 10*6/uL (4.40-5.60); WBC 8.65 X 10*3/uL (4.50-10.00)
--- NOTE | 2020-11-24 10:47 | P.PN ---
Subjective Progress Note Date: 11/24/20 Principal diagnosis: L4 5 and L5-S1 osteo-discitis with epidural phlegmon status post L4 to S1 revision decompression Patient was evaluated today at bedside. Patient is feeling better today, he is less agitated feeling much better. He denies any recent fever or chills, lower extremity or upper extremity paresthesias bilaterally, loss of bowel or bladder function, peroneal or genital numbness. He has continued to ambulate around the room utilizing a walker. Discussed with nursing the patient's drain output, the right-sided drain did put out about 25 mL after ambulating this morning. Left-sided drain is essentially been no change overnight. Objective - Vital Signs Vital signs: Vital Signs Temp 99.4 F 11/24/20 07:54 Pulse 89 11/24/20 07:54 Resp 18 11/24/20 07:54 BP 156/104 11/24/20 07:54 Pulse Ox 95 11/24/20 07:54 Intake & Output 11/23/20 11/24/20 11/24/20 18:59 06:59 18:59 Intake Total 600 700 Output Total 30 25 Balance 570 700 -25 Intake: IV 600 500 Ampicillin-Sulbactam 3 gm 100 In Sodium Chloride 0.9% 100 ml @ 200 mls/hr IVPB Q6H ZECHARIAH Rx#:[id number] Vancomycin 1,750 mg In 500 500 Sodium Chloride 0.9% 500 ml 500 ml @ 167 mls/hr IVPB Q8H ZECHARIAH Rx#: [id number] Oral 200 Output: Drainage 30 25 SMITA 1 10 SMITA 2 0 SMITA 3 20 25 Other: Voiding Method Toilet Toilet # Voids 1 # Bowel Movements 2 ABP, PAP, CO, CI - Last Documented Arterial Blood Pressure 121/71 - Exam Gen: AOx3, NAD VSS stable at this time Integument: Incision was evaluated today, jeff and stitches are all in good position and condition. Mild serosanguineous drainage noted on bandage after removal. 25 mL of bloody serosanguineous drainage present in the right sided deep [place] drain, no output on the left-sided drain. Palpation: No significant tenderness noted throughout the lower thoracic and lumbar midline and paraspinal region ROM: Full range of motion of all major muscle groups of the bilateral upper and lower extremities Sensory Exam: Senory exam to light touch is intact C5-T1 Senosry exam to light touch is intact L2-S1 Motor: 5 out of 5 strength noted in all major muscle groups of the bilateral upper and lower extremities Reflexes: 2/4 in all UE and LE Negative Jozef's bilaterally Negative Babinski bilaterally Negative clonus bilaterally - Labs CBC & Chem 7: 11/24/20 06:25 11/23/20 06:32 Labs: Abnormal Lab Results - Last 24 Hours (Table) 11/23/20 11/23/20 11/24/20 Range/Units 06:32 06:32 06:25 RBC 3.52 L 3.58 L (4.40-5.60) X 10*6/uL Hgb 10.6 L 10.8 L (13.0-17.0) g/dL Hct 32.5 L 32.7 L (39.6-50.0) % Carbon Dioxide 34.3 H (21.6-31.8) mmol/L BUN 7.0 L (9.0-27.0) mg/dL BUN/Creatinine Ratio 11.67 L (12.00-20.00) Ratio Calcium 8.5 L (8.7-10.3) mg/dL AST 62 H (14-35) U/L ALT 57 H (10-49) U/L Lactate Dehydrogenase 378 H (120-246) U/L Total Protein 4.8 L (6.2-8.2) g/dL Albumin 3.30 L (3.80-4.90) g/dL Globulin 1.5 L (1.6-3.3) g/dL Microbiology - Last 24 Hours (Table) 11/19/20 14:00 Anaerobic Culture - Final Back 11/19/20 14:00 Anaerobic Culture - Final Back 11/19/20 14:00 Anaerobic Culture - Final Back 11/19/20 14:00 Anaerobic Culture - Final Back 11/19/20 14:00 Anaerobic Culture - Final Back 11/19/20 14:00 Anaerobic Culture - Final Back 11/18/20 12:10 Blood Culture - Preliminary Blood No Growth after 120 hours Assessment and Plan Assessment: Postop day #5 status post L4 5 and L5-S1 osteo-discitis with epidural phlegmon status post L4 to S1 revision decompression Plan: Await culture and sensitivity results, appreciate infectious disease recommendations for outpatient antibiotics The left-sided drain was pulled at bedside today, there was a mild amount of bloody serosanguineous drainage from the drain hole, new dressings were applied to the entire incision and drains. The right-sided drain was left in place. Pain control, continue current pain regimen GI and DVT prophylaxis, continue current medication Consult will be placed for pulmonology evaluation for hopeful BiPAP used during inpatient stay. Patient will be advised to follow-up with them in the outpati ent setting due to his likely sleep apnea Psychiatric consultation will also be placed due to patient's agitated state and anxiety Continue to work with physical therapy, recommend bed multiple times a day, utilize walker at all times Continue to follow during inpatient stay Time with Patient: Less than 30
[2020-11-24 11:08] LABS: African American GFR (CKD) 139.7 (60.0-200.0); Anion Gap 5.9 mmol/L (4.00-12.00); BUN/Creat Ratio 11.67 Ratio (12.00-20.00); C Reactive Protein 19.8 mg/dL (0.0-0.8); Calcium 8.3 mg/dL (8.7-10.3); Carbon Dioxide 34.1 mmol/L (21.6-31.8); Non-African American GFR(CKD) 120.6 (60.0-200.0); Potassium 3.3 mmol/L (3.5-5.5)
[2020-11-24] MEDS ORDERED: POTASSIUM CHLORIDE ER 20 MEQ TAB.ER PO STA (11:37)
--- NOTE | 2020-11-24 11:42 | P.PN ---
Subjective Progress Note Date: 11/24/20 (delayed charting seen at 0945) Principal diagnosis: back pain Patient is a 45-year-old male with a history of chronic low back pain status post L4-5 decompression with revision and microdiscectomy, right sided laminotomy with microdiscectomy L5-S1 on 10/01/2020, hypertension, and tobacco abuse who was sent in by Dr. Jama for direct admission due to osteomyelitis. Patient had been hospitalized here on 11/16 due to concerns for infection. During that hospital stay he had underwent an MRI of the spine which showed L4 5 discitis with osteomyelitis, residual disc herniation as well as large phlegmon measuring 9 x 5 cm. During that hospital stay he ultimately left AGAINST MEDICAL ADVICE with a less than 24-hour hospital stay. He had also been seen for his back pain at [facility] where he underwent a CT but they did not see any definitive process per patient. He continued to have worsening back pain and therefore was admitted by Dr. Jama. He was started on Unasyn and vancomycin. Infectious disease as consulted and agreed with current antibiotics. He underwent surgery on 11/19 with I and D, antibiotic beads and cement. Cultures were taken. He was transferred to the ICU Intubated after surgery. He self extubated on the morning of 11/20. He continued to improve. Transferred to [facility] on 11/21/20. He continued to improve but frustrated with length of stay. Cultures are show staph epi Patient seen and examined at bedside. No chest pain, SOB, CP, nausea, pain well controlled, slept better last night. General: non toxic, no distress, appears at stated age Derm: warm, dry Head: atraumatic, normocephalic, symmetric Eyes: EOMI, no lid lag, anicteric sclera Mouth: no lip lesion, mucus membranes moist Cardiovascular: S1S2 reg, no murmur, positive posterior tibial pulse bilateral, Lungs: CTA bilateral, no rhonchi, no rales , no accessory muscle use Abdominal: soft, non tender to palpation no guarding, no appreciable organomegaly Ext: no gross muscle atrophy, no edema, no contractures Neuro: CN II-XI grossly intact, no focal neuro deficits, SMITA drain X 2, dressing without soak through Psych: Alert, oriented, appropriate affect 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, s/p surgery 11/19 with I and D antibiotic beads and cement with fusion - culture currently with staph epi only -ID recs: vanco, PICC in place for 6-12 weeks of IV antibiotics -Blood cultures negative to date -Pain control -CRP improved Acute blood loss anemia - follow CBC - anticipated outcome of surgery - s/p 1 unit pRBC Hypertension, controlled -Continue with hydrochlorothiazide, losartan and atenolol -Follow blood pressures Constipation, resolved -Continue with MiraLAX Tobacco abuse -Cessation -Nicotine replacement Obesity with BMI 32.6 -Outpatient structured weight loss Possible RADHA - Outpatient follow-up with Pulm for sleep study Hypokalemia, resolved Hope for discharge early next week Thank you for allowing us to participate in the care of this pleasant patient. Do not hesitate to contact us with questions. Someone can be reached from the [facility] hospitalist group all hours of the day at [phone] or via [employer]. Objective - Vital Signs Vital signs: Vital Signs Temp 99.4 F 11/24/20 07:54 Pulse 89 11/24/20 07:54 Resp 18 11/24/20 07:54 BP 156/104 11/24/20 07:54 Pulse Ox 95 11/24/20 07:54 Intake & Output 11/23/20 11/24/20 11/24/20 18:59 06:59 18:59 Intake Total 600 700 Output Total 30 25 Balance 570 700 -25 Intake: IV 600 500 Ampicillin-Sulbactam 3 gm 100 In Sodium Chloride 0.9% 100 ml @ 200 mls/hr IVPB Q6H ZECHARIAH Rx#:[id number] Vancomycin 1,750 mg In 500 500 Sodium Chloride 0.9% 500 ml 500 ml @ 167 mls/hr IVPB Q8H ZECHARIAH Rx#: [id number] Oral 200 Output: Drainage 30 25 SMITA 1 10 SMITA 2 0 SMITA 3 20 25 Other: Voiding Method Toilet Toilet # Voids 1 # Bowel Movements 2 ABP, PAP, CO, CI - Last Documented Arterial Blood Pressure 121/71 - Labs CBC & Chem 7: 11/24/20 06:25 11/24/20 06:25 Labs: Abnormal Lab Results - Last 24 Hours (Table) 11/23/20 11/23/20 11/24/20 Range/Units 06:32 06:32 06:25 RBC 3.52 L (4.40-5.60) X 10*6/uL Hgb 10.6 L (13.0-17.0) g/dL Hct 32.5 L (39.6-50.0) % Potassium 3.3 L (3.5-5.5) mmol/L Carbon Dioxide 34.3 H 34.1 H (21.6-31.8) mmol/L BUN 7.0 L 7.0 L (9.0-27.0) mg/dL BUN/Creatinine Ratio 11.67 L 11.67 L (12.00-20.00) Ratio Calcium 8.5 L 8.3 L (8.7-10.3) mg/dL AST 62 H (14-35) U/L ALT 57 H (10-49) U/L Lactate Dehydrogenase 378 H (120-246) U/L C-Reactive Protein 19.8 H (0.0-0.8) mg/dL Total Protein 4.8 L (6.2-8.2) g/dL Albumin 3.30 L (3.80-4.90) g/dL Globulin 1.5 L (1.6-3.3) g/dL 11/24/20 Range/Units 06:25 RBC 3.58 L (4.40-5.60) X 10*6/uL Hgb 10.8 L (13.0-17.0) g/dL Hct 32.7 L (39.6-50.0) % Potassium (3.5-5.5) mmol/L Carbon Dioxide (21.6-31.8) mmol/L BUN (9.0-27.0) mg/dL BUN/Creatinine Ratio (12.00-20.00) Ratio Calcium (8.7-10.3) mg/dL AST (14-35) U/L ALT (10-49) U/L Lactate Dehydrogenase (120-246) U/L C-Reactive Protein (0.0-0.8) mg/dL Total Protein (6.2-8.2) g/dL Albumin (3.80-4.90) g/dL Globulin (1.6-3.3) g/dL Microbiology - Last 24 Hours (Table) 11/19/20 14:00 Anaerobic Culture - Final Back 11/19/20 14:00 Anaerobic Culture - Final Back 11/19/20 14:00 Anaerobic Culture - Final Back 11/19/20 14:00 Anaerobic Culture - Final Back 11/19/20 14:00 Anaerobic Culture - Final Back 11/19/20 14:00 Anaerobic Culture - Final Back 11/18/20 12:10 Blood Culture - Preliminary Blood No Growth after 120 hours
[2020-11-24] MEDS: ALPRAZolam 0.5 MG TAB PO PRN (15:02)
[2020-11-24] MEDS: ZOLPIDEM 5 MG TAB PO SCH (20:25)
--- NOTE | 2020-11-24 23:29 | PN ---
PROGRESS NOTE DATE OF SERVICE: 11/24/2020 REASON FOR FOLLOWUP: Lumbar spine abscess. INTERVAL HISTORY: The patient is currently afebrile. The patient is breathing comfortably. Pain to the lumbar area is currently controlled. No chest pain. No cough. No abdominal pain. No diarrhea. PHYSICAL EXAMINATION: Blood pressure 120/82 with a pulse of 73, temperature 97.8. He is 97% on room air. General description: The patient is a middle-aged male lying in bed in no distress. Respiratory system: Unlabored breathing. Clear to auscultation anteriorly. HEART: S1, S2. Regular rate and rhythm. Abdomen soft, no tenderness. LABS: Hemoglobin is 10.1, white count 8.65. Blood culture has been negative. DIAGNOSTIC IMPRESSION AND PLAN: Patient with lumbar spine abscess status post surgical drainage. Local culture with Staph epidermidis. Patient is covered with vancomycin hopefully he can be discharged once antibiotics are arranged and continue supportive care. MMODL / IJN: [id number] /
--- NOTE | 2020-11-24 23:59 | CONS ---
CONSULTATION DATE OF SERVICE: 11/24/2020 PURPOSE FOR CONSULTATION: Evaluate for anxiety issues. HISTORY OF PRESENTING ILLNESS: I have some limited information due to computer issue. The patient is a 45-year-old male. He had initial admission 09/2015 for back surgery. He subsequently developed infection and was readmitted for I and D. My understanding is that he was readmitted at the end of October for treatment of the infection. He left the hospital AMA on November 16. He was readmitted on November 18. There apparently was some question that the patient was in quite a distressed state as the reason he left the hospital. On November 16, he said he was distressed about being on the call light for an hour and 44 minutes without anyone coming to attend to his needs. It is noted that there may have been some other issues as well including that he describes himself as a "chain smoker", though he was declining to use any supplemental nicotine. He acknowledged that there may have been some nicotine withdrawal issues that was a part of the distress he was experiencing. In addition, there was some question about alcohol issues, though I have not seen any documentation related to that. Nursing noted that he generally has been doing fairly well in the evening times. The nurse I talked to today said the last 2 evenings he has had no issues and has been calm and relaxed. Apparently nurse reports that in the daytime he has had anxiety. 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 When I talked to the patient this afternoon late in the afternoon, he said he was feeling fine. He said he has not had any significant anxiety issues for at least the last couple days. He seemed to focus on the issue of leaving AMA as the situation where he was distressed and that it may have come to the attention of staff. He does acknowledge his smoking habit and says that he is committed to stop smoking when he leaves the hospital. He currently is on Celexa 20 mg a day. He says he was prescribed it some time in the past to help with smoking cessation. He said he just continued it since then. He did not report a history of anxiety or depression in the past. He says he has not had any mental health interventions other than just being on the antidepressant as his only psychotropic medication. According to the nurse this evening, he also is currently prescribed Ambien p.r.n. for sleep and Xanax 0.5 mg p.r.n. for anxiety. MENTAL STATUS: Patient was lying in bed on his side. He gave fair eye contact. He was a little restless. He answered questions with brief responses. His thoughts were clear. His affect was a little intense, though not significantly so. He generally had a fairly friendly manner. His mood was reserved. He did not appear to be significantly distressed. There was no indication of thought disorder. Cognition was clear. ASSESSMENT: This 45-year-old male has had some issues of distress in part related to the complications he has had from back surgery and possibly also related to nicotine withdrawal and general discomfort in the hospital setting. At this point, I would continue psychotropic medication the same, though would be cautious in use of Ambien and Xanax. Continuing the patient on Celexa 20 mg a day would be reasonable. There might be consideration for switching to Wellbutrin XL 300 mg a day, which had a fairly extensive use in the realm of smoking cessation. At this point, I will not provide further followup. If there are additional issues to be addressed, please re-consult Psychiatry. MMODL / IJN: [id number] /
[2020-11-25] MEDS: oxyCODONE-APAP 10-325MG 1 EACH TAB PO SCH ×5 (00:35→14:32)
[2020-11-25] MEDS: VANCOMYCIN 1,750 MG in SODIUM CHLORIDE 0.9% 500 ML 500 ML IVPB SCH ×2 (05:15→12:04)
[2020-11-25 08:18] VITALS: BP 171/97; PULSE 71; RESP 18; TEMP 98.2
--- NOTE | 2020-11-25 08:31 | P.PN ---
Subjective Progress Note Date: 11/25/20 Principal diagnosis: L4 5 and L5-S1 osteo-discitis with epidural phlegmon status post L4 to S1 revision decompression Patient seen and examined. He is doing fairly well. His up and about walking around the room. His pain is better. He denies any pain down his legs. He denies bowel or bladder issues. He is voiding appropriately pain is tolerable is tolerating by mouth diet. No fevers chills or some breath or chest pain. Objective - Vital Signs Vital signs: Vital Signs Temp 98.2 F 11/25/20 07:20 Pulse 71 11/25/20 07:20 Resp 18 11/25/20 07:20 BP 171/97 11/25/20 07:20 Pulse Ox 96 11/25/20 07:20 Intake & Output 11/24/20 11/25/20 11/25/20 18:59 06:59 18:59 Intake Total 540 400 Output Total 25 Balance 515 400 Intake: Oral 540 400 Output: Drainage 25 SMITA 3 25 Other: Voiding Method Toilet # Voids 3 2 ABP, PAP, CO, CI - Last Documented Arterial Blood Pressure 121/71 - Exam Patient is alert and oriented 3 appears well-nourished well-hydrated is in no acute distress. They does not appear septic. On exam the patient has no tenderness to palpation of her thoracic or lumbar spine. There is no edema or ballottement sign. They have good strength in her lower extremities with 5 out of 5 dorsiflexion plantar flexion EHL and FHL bilaterally. Upper extremities show 5/5 strength in all major muscle groups. There is FROM that is painless of the b/l UE and LE in all major joints. They are intact to light touch sensation in L2 to S1 nerve distribution. Patient has palpable dorsalis pedis was posterior tibial pulses. Compartments are soft and compressible. Patient shows a negative Homans, Zavala's, negative Babinski's negative clonus bilaterally. negative straight leg raise bilaterally. No tensioning signs.Cranial nerves II through XII are grossly intact. Overall alignment is well-maintained in the sagittal coronal planes. Dressing is removed today. Incision is clean dry and intact drains are removed today.. There is no drainage. There is no purulence. There is no erythema or ecchymosis or edema. Stitches are in place. Incision is redressed with Telfa and tape - Labs CBC & Chem 7: 11/24/20 06:25 11/24/20 06:25 Labs: Abnormal Lab Results - Last 24 Hours (Table) 11/24/20 11/24/20 Range/Units 06:25 06:25 RBC 3.58 L (4.40-5.60) X 10*6/uL Hgb 10.8 L (13.0-17.0) g/dL Hct 32.7 L (39.6-50.0) % Potassium 3.3 L (3.5-5.5) mmol/L Carbon Dioxide 34.1 H (21.6-31.8) mmol/L BUN 7.0 L (9.0-27.0) mg/dL BUN/Creatinine Ratio 11.67 L (12.00-20.00) Ratio Calcium 8.3 L (8.7-10.3) mg/dL C-Reactive Protein 19.8 H (0.0-0.8) mg/dL Microbiology - Last 24 Hours (Table) 11/18/20 12:10 Blood Culture - Final Blood No Growth after 144 hours Assessment and Plan Assessment: 45-year-old male with L4 5 L5-S1 osteo-discitis with epidural phlegmon postopera tive day 6 from irrigation debridement L4 to S1 decompression and fusion Plan: -Appreciate medicine management. -Pain control: Adequate at this time -Aggressive ambulation protocol. OOB with all meals. OOB or in chair 4-5x daily. -PT/OT -TEDs, SCDs, mechanical ppx. OK for heparin today. Early ambulation is best. -GI ppx. -Trend labs. -Increase activity when necessary -ID recs for abx, await final cx. Cont with current regiment. -Dispo: Home today with home health care antibiotics and follow-up
[2020-11-25] MEDS: polyethylene glycoL 3350 17 GM POWD.PACK PO SCH (08:36)
[2020-11-25] MEDS: atenoloL 50 MG TAB PO SCH (08:37)
[2020-11-25] MEDS: LOSARTAN 50 MG TAB PO SCH (08:37)
[2020-11-25] MEDS: hydroCHLOROthiazide 25 MG TAB PO SCH (08:37)
[2020-11-25] MEDS: CYCLOBENZAPRINE 10 MG TAB PO SCH (08:37)
[2020-11-25] MEDS: GABAPENTIN 300 MG CAP PO SCH (08:37)
[2020-11-25] MEDS: CITALOPRAM HYDROBROMIDE 20 MG TAB PO SCH (08:37)
[2020-11-25 09:01] LABS: HCT 34.7 % (39.6-50.0); HGB 11.3 g/dL (13.0-17.0); MCH 30.1 pg (27.0-32.0); MCHC 32.6 g/dL (32.0-37.0); MCV 92.5 fL (80.0-97.0); Mean Platelet Volume 10.2 fL (9.5-12.2); Platelet Count 297 X 10*3/uL (140-440); RBC 3.75 X 10*6/uL (4.40-5.60); RDW 13.1 % (11.5-14.5); WBC 7.94 X 10*3/uL (4.50-10.00)
[2020-11-25 09:14] LABS: African American GFR (CKD) 124.2 (60.0-200.0); Anion Gap 8.7 mmol/L (4.00-12.00); Calcium 8.6 mg/dL (8.7-10.3); Carbon Dioxide 32.3 mmol/L (21.6-31.8); Non-African American GFR(CKD) 107.1 (60.0-200.0); Potassium 4.2 mmol/L (3.5-5.5)
--- NOTE | 2020-11-25 12:39 | P.PN ---
Subjective Progress Note Date: 11/25/20 No new complaints, doing well, ready for discharge today. Objective - Vital Signs Vital signs: Vital Signs Temp 98.2 F 11/25/20 07:20 Pulse 71 11/25/20 07:20 Resp 18 11/25/20 07:20 BP 171/97 11/25/20 07:20 Pulse Ox 96 11/25/20 07:20 Intake & Output 11/24/20 11/25/20 11/25/20 18:59 06:59 18:59 Intake Total 540 400 Output Total 25 Balance 515 400 Intake: Oral 540 400 Output: Drainage 25 SMITA 3 25 Other: Voiding Method Toilet # Voids 3 2 ABP, PAP, CO, CI - Last Documented Arterial Blood Pressure 121/71 - Exam Gen: awake, alert, obese HEENT: normocephalic, atraumatic, good hearing acuity, moist mucous membranes, clear to auscultation bilaterally without wheezes Resp: good air exchange, breathing comfortably with no accessory muscle use, clear to auscultation bilaterally without wheezes CVS: good distal perfusion x 4, regular rate and rhythm without murmurs GI: soft, NTTP, ND : no SPT, no CVAT, [place] catheter not present MSK: no pitting edema, no clubbing Neuro: non-focal, moving all extremities Psych: cooperative, euthymic mood - Labs CBC & Chem 7: 11/25/20 05:38 11/25/20 05:38 Labs: Abnormal Lab Results - Last 24 Hours (Table) 11/25/20 11/25/20 Range/Units 05:38 05:38 RBC 3.75 L (4.40-5.60) X 10*6/uL Hgb 11.3 L (13.0-17.0) g/dL Hct 34.7 L (39.6-50.0) % Carbon Dioxide 32.3 H (21.6-31.8) mmol/L BUN 8.0 L (9.0-27.0) mg/dL BUN/Creatinine Ratio 10.00 L (12.00-20.00) Ratio Glucose 113 H (70-110) mg/dL Calcium 8.6 L (8.7-10.3) mg/dL Microbiology - Last 24 Hours (Table) 11/18/20 12:10 Blood Culture - Final Blood No Growth after 144 hours Assessment and Plan Assessment: 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, s/p surgery 2/2 with I and D antibiotic beads and cement with fusion - culture currently with staph epi only -ID recs: vanco, PICC in place for 6-12 weeks of IV antibiotics -Blood cultures negative to date -Pain control -CRP improved Acute blood loss anemia - follow CBC - anticipated outcome of surgery - s/p 1 unit pRBC Hypertension, controlled -Continue with hydrochlorothiazide, losartan and atenolol -Follow blood pressures Constipation, resolved -Continue with MiraLAX Tobacco abuse -Cessation -Nicotine replacement Obesity with BMI 32.6 -Outpatient structured weight loss Possible RADHA - Outpatient follow-up with Pulm for sleep study Hypokalemia, resolved Okay for discharge from medical perspective.
[2020-11-25 14:41] VITALS: BMI 44.2
--- NOTE | 2020-11-25 21:18 | PN ---
PROGRESS NOTE DATE OF SERVICE: 11/25/2020 REASON FOR FOLLOWUP: Lumbar abscess. INTERVAL HISTORY: The patient was seen on rounds earlier this afternoon. The patient has been afebrile. The patient is breathing comfortably. Pain to the lumbar area is controlled. No chest pain, shortness of breath or cough. No abdominal pain or diarrhea. PHYSICAL EXAMINATION: Blood pressure 171/97, pulse of 71, temperature 98.2. He is 96% on room air. General description is a middle-aged male lying in bed in no distress. RESPIRATORY SYSTEM: Unlabored breathing. Clear to auscultation anteriorly. HEART: S1, S2. Regular rate and rhythm. ABDOMEN: Soft. No tenderness. LABS: Hemoglobin 11.3, white count 7.94, creatinine 0.8. DIAGNOSTIC IMPRESSION AND PLAN: Patient with lumbosacral spine abscess, status post surgical drainage. Culture positive for Staphylococcus epidermidis. The patient is covered with vancomycin. Plan is for a total of 6 weeks of IV antibiotic therapy with careful of his kidney function and weekly labs. This has been discussed with the patient. Follow up in the office. All of his questions were answered. MMODL / IJN: [id number] /
[2020-11-26] MEDS ORDERED: VANCOMYCIN TROUGH DUE 1 EACH MISC MISCELLANE ONE (05:00)
--- NOTE | 2020-11-28 10:31 | P.DS ---
Providers Date of admission: 11/18/20 10:27 Expected date of discharge: 11/25/20 Attending physician: Abdirizak Jama DO Consults: 11/18/20 12:00 Consult Physician Routine Consulting Provider: Shirley Gomez Consult Reason/Comments: osteomyelitis discitis Do you want consulting provider notified?: Yes 11/18/20 12:02 Consult Physician Urgent Consulting Provider: Mary Kang Consult Reason/Comments: medical management and clearance for OR Do you want consulting provider notified?: Yes 11/19/20 20:43 Consult Physician Routine Consulting Provider: Guillermo Conroy Consult Reason/Comments: ICU management Do you want consulting provider notified?: Yes, Notify in am 11/23/20 10:49 Consult Physician Routine Consulting Provider: Kenton Montenegro Consult Reason/Comments: anxiety Do you want consulting provider notified?: Yes Primary care physician: Kiersten Allanmeazeb Hospital Course: Spine Surgery Discharge Summary Note Admission Date: 11/18/2020 Discharge Date: 11/25/2020 Providers: Jason Jama Principal Diagnosis: Lumbar spine infection osteo-discitis epidural phlegmon Procedures: Incision irrigation debridement epidural phlegmon lumbar phlegmon osteo-discitis L4 to S1 fusion Discharge Medications: See list Allergies: Unknown drug ALLERGIES Hospital Course: The patient was evaluated preoperatively and found to have the diagnosis of 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 They underwent appropriate preoperative care and were willing to undergo the intended procedure. They underwent a successful irrigation debridement evacuation and fusion of L4 to S1, were recovered appropriately and sent to the floor. While on the floor they worked with physical therapy, occupational therapy and nursing to enhance their recovery experience. Their pain was well controlled through their stay and they were started on appropriate medications, DVT ppx modalities, activity and dietary needs. Daily labs were monitored closely, and transfusions were only used when necessary. Medicine as well as other consulting services have made their input and have helped with our team approach and multidisciplinary care. PT milestones have been met and passed and they have made the recommendation of home with home health care for this patient and treating providers agree with this care path. The patient will be discharged home with appropriate medications, instructions and follow-up information and in stable condition. Patient Condition at Discharge: Stable Plan - Discharge Summary Discharge Rx Participant: Yes New Discharge Prescriptions: New Vancomycin 1,750 mg IVPB Q8HR #84 bag Cyclobenzaprine [Flexeril] 10 mg PO HS PRN #40 tab PRN Reason: Spasms Gabapentin 600 mg PO TID 3 Days #90 tab Polyethylene Glycol 3350 [Miralax] 17 gm PO DAILY PRN #527 gm PRN Reason: Constipation oxyCODONE-APAP 10-325MG [Percocet 10-325 mg] 1 - 2 tab PO Q4HR PRN 7 Days #70 tab PRN Reason: Pain Sennosides/Docusate Sodium [Senna Plus 8.6-50 mg Softgel] 1 each PO BID PRN #30 capsule PRN Reason: Constipation No Action Meloxicam 15 mg PO DAILY PRN PRN Reason: Pain Atenolol [Tenormin] 100 mg PO DAILY hydroCHLOROthiazide [Hydrodiuril] 25 mg PO DAILY Tadalafil [Cialis] 20 mg PO DIRECTED PRN PRN Reason: E.D. Docusate [Colace] 100 mg PO DAILY PRN #20 capsule PRN Reason: Constipation Ibuprofen [Motrin] 800 mg PO Q8H PRN #90 tab PRN Reason: Mild Pain methocarbamoL [Robaxin] 500 mg PO QID PRN PRN Reason: BACK PAIN bisacodyL [Dulcolax] 5 mg PO DAILY PRN PRN Reason: Constipation Na Phos,M-B/Na Phos,Di-Ba [Fleet Adult] 133 ml RECTAL DAILY PRN PRN Reason: Constipation Lidocaine 5% Patch [Lidoderm] 1 patch TRANSDERM DAILY PRN PRN Reason: Pain Citalopram Hydrobromide [CeleXA] 20 mg PO DAILY Losartan Potassium 100 mg PO DAILY Discharge Medication List Meloxicam 15 mg PO DAILY PRN 12/07/17 [History] Atenolol [Tenormin] 100 mg PO DAILY 09/30/20 [History] Tadalafil [Cialis] 20 mg PO DIRECTED PRN 09/30/20 [History] hydroCHLOROthiazide [Hydrodiuril] 25 mg PO DAILY 09/30/20 [History] Docusate [Colace] 100 mg PO DAILY PRN #20 capsule 10/02/20 [Rx] Ibuprofen [Motrin] 800 mg PO Q8H PRN #90 tab 10/02/20 [Rx] Lidocaine 5% Patch [Lidoderm] 1 patch TRANSDERM DAILY PRN 11/16/20 [History] Na Phos,M-B/Na Phos,Di-Ba [Fleet Adult] 133 ml RECTAL DAILY PRN 11/16/20 [H istory] bisacodyL [Dulcolax] 5 mg PO DAILY PRN 11/16/20 [History] methocarbamoL [Robaxin] 500 mg PO QID PRN 11/16/20 [History] Citalopram Hydrobromide [CeleXA] 20 mg PO DAILY 11/18/20 [History] Losartan Potassium 100 mg PO DAILY 11/18/20 [History] Vancomycin 1,750 mg IVPB Q8HR #84 bag 11/23/20 [Rx] Cyclobenzaprine [Flexeril] 10 mg PO HS PRN #40 tab 11/25/20 [Rx] Gabapentin 600 mg PO TID 3 Days #90 tab 11/25/20 [Rx] Polyethylene Glycol 3350 [Miralax] 17 gm PO DAILY PRN #527 gm 11/25/20 [Rx] Sennosides/Docusate Sodium [Senna Plus 8.6-50 mg Softgel] 1 each PO BID PRN #30 capsule 11/25/20 [Rx] oxyCODONE-APAP 10-325MG [Percocet 10-325 mg] 1 - 2 tab PO Q4HR PRN 7 Days #70 tab 11/25/20 [Rx] Follow up Appointment(s)/Referral(s): [facility], [NON-STAFF] - As Needed ([facility] will call you to arrange your first visit. They will be there on 11/25/2020 at 7:00 pm to begin IV antibiotic infusions/teaching. ) Kiersten Lacey, SAMANTA [Primary Care Provider] - 12/03/20 9:20 am (At [place] office) [facility] [NON-STAFF] - ([facility] will deliver IV antibiotics tonight before 7pm. They will call before delivery.) Abdirizak Jama DO [Doctor of Osteopathic Medicine] - 12/02/20 10:10 am Shirley Gomez MD [STAFF PHYSICIAN] - 1 Week Ambulatory/Diagnostic Orders: Basic Metabolic Panel [LAB.AMB] Location: None Selected C Reactive Protein [LAB.AMB] Location: None Selected Complete Blood Count w/diff [LAB.AMB] Location: None Selected Erythrocyte Sedimentation Rate [LAB.AMB] Location: None Selected Activity/Diet/Wound Care/Special Instructions: Spine Discharge and Recovery Instructions Date of Surgery: 11/19/2020 Diagnosis: Lumbar spine abscess with L4-S1 osteo-discitis Procedure: Irrigation debridement with drainage spinal abscess fusion L4 to S1 with antibiotic cement placement Medications: See list All medication refills should be obtained through your primary care doctor or your clinic spine surgeon. Please discuss prescription refills at your follow up appointment. Do not call the hospital for medication refills. Dressing: Leave your dressing in place for a total of 3 days post operatively. Then you may remove your dressing and leave open to air. Keep the area clean and if not able to keep area clean, then cover with sterile gauze and tape. Showering: You may shower 3 days after your procedure allowing soap and water to run over incision. Do not scrub. Do not soak. Blot dry. Follow up: Please confirm a follow up appointment with your surgeon 2 weeks post operatively. Please make an appointment to follow up with your PCP in 1-2 weeks after surgery for evaluation 3 phase, 3-week plan POST OP WEEKS 1-3 1. Lifting/carrying/pushing/pulling limited to less than 5 pounds. 2. Do not sit for longer than 15 minutes at one time. Get up and walk around. Prolonged sitting is NOT advised. If you lay down, see if you can tolerate laying down on you front (belly side) 3. Walk for periods of 15 minutes = 1 mile but no longer; do it multiple times times each day. 4.Ice your low back after activity. POST OP WEEKS 3-6 1. Lifting limited to less than 20 pounds. 2. Do not sit for longer than 30 minutes at a time. Frequently change positions. Use a sit-to stand workstation or take frequent breaks from sitting if you have returned to work. 3. Walk for 30 minutes each day. If possible, do these three or more times a day POST OP WEEKS 6+ At your 6-week appointment we will give you a physical therapy referral to focus on a core stabilization and strengthening program. You should also work on leg & buttock strengthening, hamstring & quadriceps stretching, and continue a low impact aerobic activity program such as swimming, walking, or riding a stationary bicycle. During the initial 6 weeks after your surgery, you are at the highest risk of re-injuring your spine. You should generally avoid BLTs (bending, lifting and twisting combination motions) and follow the above guidelines to reduce the chance of reinjury. You can anticipate post op appointments in our office at approximately 3 weeks and 6 weeks after your surgery. INCISION CARE: If your incision is not draining you do NOT need to cover it with a dressing. Keep your incision clean, dry and intact. In most cases, we apply skin glue, ejff or sutures to the incision at the time of surgery. This will be like a crust or have the appearance of a scab and will fall off in time on its own. The stitches or jeff need to be removed at 3 weeks post op appointment. You may begin to shower 3 days after surgery (this allows the glue to montero well). However, please avoid scrubbing the incision site or peeling off any of the skin glue. This will ensure optimal healing of your incision. Also, during this time avoid soaking the incision area in water - this includes swimming pools, hot tubs or baths. No ointments, lotions or oils on the incision until your surgeon allows. Leave jeff, sutures or glue in place. Neurological dysfunction that comes on suddenly can also be a sign of a stroke. Below some common symptoms of a stroke are listed: B - balance difficulty such as sudden onset walking or leaning to one side - NEW E - eye problem such as sudden double vision or trouble seeing on one side - NEW F - Facial weakness or numbness on one side - NEW A - Arm or leg weakness or numbness on one side - NEW S - Slurred speech or difficulty with word finding - NEW T - Time is BRAIN! Call 911 as soon as you recognize these symptoms Diet: Consume a regular diet rich in vegetables and lean protein such as chicken or fish. You should consume in a ratio of approximately 20% fats|40% carbohydrates|40%protein. Vegetables, sweet potatoes, brown rice or quinoa are examples of good carbohydrates. Chips, white bread, cookies and sweets/sugar are examples of bad carbohydrates. Limit your bad carbs, go wild with good carbs. "Life's Simple 7" Guidelines as per [place] [employer] These will help you reclaim your life after surgery and stockroom helper in your recovery, keeping in mind your restrictions. (1) Get Active. Physical activity can help people lose weight, control high blood pressure and cholesterol, feel emotionally better, and sleep better. (2) Control Cholesterol. Avoid a diet high in saturated fat, trans fat, & cholesterol. Limit whole milk & cream, ice cream, butter, egg yolks, processed meats (like sausage and hot dogs), and fatty meats. Choose healthy foods that are low in saturated fat, trans fat and cholesterol which include: Fruits and vegetables, fiber rich grain products (like whole grain pasta and brown rice), lean meat such as chicken, fish, nuts, seeds, and legumes. (3) Eat Better. Eat small portions. Shop at the grocery with a list and do not stray from it. Tips for a healthy diet include: Limit sodium intake to less than 1500mg daily, avoid prepackaged, processed, and fast foods, choose a diet rich in fruits, vegetables, and whole grain, high fiber foods, and limit saturated & cholesterol in your diet. (4) Manage Blood Pressure. If you have high blood pressure, you should have a cuff at home so that you can check your blood pressure regularly. Be sure you have a good cuff. An arm one is generally better than a wrist one. Bring the cuff to a doctor's appointment to validate that the measurements that your cuff are taking are accurate. Take your blood pressure twice daily when you are sitting down and relaxing. Record the numbers in a log and bring this log with you to your doctors' appointments. (5) Lose Weight if your BMI is above 25. A healthy BMI is between 19-25. To calculate Your BMI, you may use a Standard BMI Calculator on the NIH BMI website: <www.nhlbi.nih.gov/guidelines/obesity/BMI/bmicalc.htm>. Weigh oneself daily. If you are overweight, set a goal to lose weight. A pound a week loss if needed is a good target. (6) Reduce Blood Sugar. Limit foods and liquids with "added sugars." (Added sugars include sucrose, fructose, glucose, maltose, dextrose, high fructose corn syrup, corn syrup, concentrated fruit juice and honey). (7) Stop Smoking. If you smoke, quitting smoking is one of the best things that you can do for your health. Smoking increases your risk of heart attack, stroke, and peripheral vascular disease, which is a build-up of plaque in your arteries. Please discard all the cigarettes and lighters in your house. Have a plan for what you will do when you have the urge to smoke. Direct and second- hand smoke shortens your life as well as the lives of your family, friends and others around you. For your health and the health of those around you, please consider quitting! Proper Bending Body Mechanics: Maintain a wide stance with one foot slightly in front of the other. Keep your back straight. Bend utilizing the strength in your hips and knees. Do not bend at the waist. Maintain the lifted object at your waist-level close to your body. Avoid lifting weight that causes immediately pain or pain anywhere in the body afterwards. Smoking/Nicotine If there was ever one thing that you could do to increase your overall health, decrease your risk of cardiovascular problems by about 39% the second you make the choice, it is to STOP SMOKING. Your body's most instant gratification is the second you stop smoking. We have all heard the studies, read the articles but it is true, smoking is extremely bad for your overall health, and moreover it is detrimental to your bone health. Nicotine, IN ANY FORM, kills bone cells, prevents your body from healing fractures, and significantly prolongs healing after surgery. In spine surgery specifically, it increases your risk of not healing your bones to create a fusion and increases your risk of having a revision surgery due to this up to 60%. I know it is hard. I know it feels impossible. But there are ways. Take control of your life. We are here to help you through it. And when you are ready, ask us and we can direct you to help if you desire. Use the START Plan to Quit Smoking (please visit the Helpguide.org website listed below for more information): S = Set a quit date. Choose a date within the next 2 weeks, so you have enough time to prepare without losing your motivation to quit. If you mainly smoke at work, quit on the weekend, so you have a few days to adjust to the change. T = Tell family, friends, and co-workers that you plan to quit. Let your friends and family in on your plan to quit smoking and tell them you need their support and encouragement to stop. Look for a quit martha who wants to stop smoking as well. You can help each other get through the rough times. A = Anticipate and plan for the challenges you'll face while quitting. Most people who begin smoking again do so within the first 3 months. You can help yourself make it through by preparing ahead for common challenges, such as nicotine withdrawal and cigarette cravings. R = Remove cigarettes and other tobacco products from your home, car, and work. Throw away all your cigarettes (no emergency pack!), lighters, ashtrays, and matches. Wash your clothes and freshen up anything that smells like smoke. Shampoo your car, clean your drapes and carpet, and steam your furniture. T = Talk to your doctor about getting help to quit. Your doctor can prescribe medication to help with withdrawal and suggest other alternatives. If you can't see a doctor, you can get many products over the counter at your local pharmacy or grocery store, including the nicotine patch, nicotine lozenges, and nicotine gum. Resources for Quitting Smoking: <https://www.[place].gov/documents/[facility]/Quit_Tobacco_Resourc es_for_patients_313480_7.pdf> Supplementation: Take recommended dosages of Vitamin D and Calcium to help fortify your bones and help them to heal. See your health maintenance packet for dosages and recommended levels. DVT/VTE prophylaxis: You will be given compression stockings from the hospital. Wear these daily for the first two weeks after surgery. You may take them off at night. You may be prescribed a medication to help thin your blood. Take this as directed. If you are not prescribed this medication, early and frequent ambulation has been shown to be the best prophylaxis to deep vein thrombosis and sequelae related to this event. Discharge Disposition: HOME WITH HOME HEALTH SERVICES
== END 2020-11-25 15:27 | disposition home health service (06) | DRG 856 ==
LOC: 4SSUR 10:27 → 2SICU 11-19 20:27 → 4SSUR 11-22 00:46
PROVIDERS: ADMIT Orthopaedic Surgery; ATTEND Orthopaedic Surgery
PROC: 0SG30AJ Fusion of Lumbosacral Joint with Interbody Fusion Device, Posterior Approach, Anterior Column, Open Approach (ICD-10-PCS; 2020-11-19)
PROC: 0SG00K1 Fusion of Lumbar Vertebral Joint with Nonautologous Tissue Substitute, Posterior Approach, Posterior Column, Open Approach (ICD-10-PCS; 2020-11-19)
PROC: 0SG30K1 Fusion of Lumbosacral Joint with Nonautologous Tissue Substitute, Posterior Approach, Posterior Column, Open Approach (ICD-10-PCS; 2020-11-19)
PROC: 01NB0ZZ Release Lumbar Nerve, Open Approach (ICD-10-PCS; 2020-11-19)
PROC: 3E0U029 Introduction of Other Anti-infective into Joints, Open Approach (ICD-10-PCS; 2020-11-19)
PROC: 30233N1 Transfusion of Nonautologous Red Blood Cells into Peripheral Vein, Percutaneous Approach (ICD-10-PCS; 2020-11-19)
PROC: 0SG00AJ Fusion of Lumbar Vertebral Joint with Interbody Fusion Device, Posterior Approach, Anterior Column, Open Approach (ICD-10-PCS; principal; 2020-11-19 12:45)
PROC: 02HV33Z Insertion of Infusion Device into Superior Vena Cava, Percutaneous Approach (ICD-10-PCS; 2020-11-22)
DX: T81.41XA Infection following a procedure, superficial incisional surgical site, initial encounter (principal); G06.1 Intraspinal abscess and granuloma; T81.30XA Disruption of wound, unspecified, initial encounter; M46.26 Osteomyelitis of vertebra, lumbar region; D62 Acute posthemorrhagic anemia; M46.27 Osteomyelitis of vertebra, lumbosacral region; Z68.41 Body mass index [BMI] 40.0-44.9, adult; F17.213 Nicotine dependence, cigarettes, with withdrawal; E66.01 Morbid (severe) obesity due to excess calories; I10 Essential (primary) hypertension; M51.16 Intervertebral disc disorders with radiculopathy, lumbar region; F17.210 Nicotine dependence, cigarettes, uncomplicated; E87.6 Hypokalemia; K59.09 Other constipation; F41.9 Anxiety disorder, unspecified; G89.29 Other chronic pain; Z71.3 Dietary counseling and surveillance; Z71.6 Tobacco abuse counseling; Z79.899 Other long term (current) drug therapy; Z98.890 Other specified postprocedural states; Z82.49 Family history of ischemic heart disease and other diseases of the circulatory system
CPT/HCPCS: 36573; 71045; 71046; 72100; 72131; 80048; 80053; 80202; 82805; 83615; 83735; 84100; 85025; 85027; 85652; 86140; 86850; 86900; 86901; 86920; 87040; 87070; 87075; 87077; 87102; 87116; 87186; 87205; 87206; 87252; 87498; 87529; 87798; 88304; 88305; 88311; 93005; 94002; 94003; 94640

== ENCOUNTER 2020-11-26 09:26 | Emergency (ER) | payer BC ==
[2020-11-26 09:30] VITALS: RESP 18; TEMP 98.5
[2020-11-26] MEDS ORDERED: ALTEPLASE 2 MG VIAL (CATHFLO) IV STA (09:39)
--- NOTE | 2020-11-26 09:46 | ED ---
General Adult HPI - General Chief complaint: Recheck/Abnormal Lab/Rx Stated complaint: plugged PICC line Time Seen by Provider: 11/26/20 09:34 Source: patient, RN notes reviewed Mode of arrival: ambulatory Limitations: no limitations - History of Present Illness Initial comments: This a 45-year-old male presents emergency Department chief complaint of clogged PICC line. Patient was discharged yesterday from the hospital states that a nurse came out last night to use it states he was unable to use it again and tried this morning with no success. Patient states that he needs IV antibiotics for osteomyelitis. Patient denies any new complaints otherwise. No chest pain or shortness breath. - Related Data Home Medications Medication Instructions Recorded Confirmed Meloxicam 15 mg PO DAILY PRN 12/07/17 11/26/20 Atenolol [Tenormin] 100 mg PO DAILY 09/30/20 11/26/20 Tadalafil [Cialis] 20 mg PO DIRECTED PRN 09/30/20 11/26/20 hydroCHLOROthiazide [Hydrodiuril] 25 mg PO DAILY 09/30/20 11/26/20 Lidocaine 5% Patch [Lidoderm] 1 patch TRANSDERM DAILY PRN 11/16/20 11/26/20 Na Phos,M-B/Na Phos,Di-Ba [Fleet 133 ml RECTAL DAILY PRN 11/16/20 11/26/20 Adult] bisacodyL [Dulcolax] 5 mg PO DAILY PRN 11/16/20 11/26/20 methocarbamoL [Robaxin] 500 mg PO QID PRN 11/16/20 11/26/20 Citalopram Hydrobromide [CeleXA] 20 mg PO DAILY 11/18/20 11/26/20 Losartan Potassium 100 mg PO DAILY 11/18/20 11/26/20 Previous Rx's Medication Instructions Recorded Docusate [Colace] 100 mg PO DAILY PRN #20 capsule 10/02/20 Ibuprofen [Motrin] 800 mg PO Q8H PRN #90 tab 10/02/20 Vancomycin 1,750 mg IVPB Q8HR #84 bag 11/23/20 Cyclobenzaprine [Flexeril] 10 mg PO HS PRN #40 tab 11/25/20 Gabapentin 600 mg PO TID 3 Days #90 tab 11/25/20 Polyethylene Glycol 3350 [Miralax] 17 gm PO DAILY PRN #527 gm 11/25/20 Sennosides/Docusate Sodium [Senna 1 each PO BID PRN #30 capsule 11/25/20 Plus 8.6-50 mg Softgel] oxyCODONE-APAP 10-325MG [Percocet 1 - 2 tab PO Q4HR PRN 7 Days #70 11/25/20 10-325 mg] tab Allergies Allergy/AdvReac Type Severity Reaction Status Date / Time No Known Allergies Allergy Verified 11/26/20 10:24 Review of Systems ROS Statement: Those systems with pertinent positive or pertinent negative responses have been documented in the HPI. ROS Other: All systems not noted in ROS Statement are negative. Past Medical History Past Medical History: Hypertension Additional Past Medical History / Comment(s): HERNIATED DISCS WITH BACK PAIN RADIATING DOWN RIGHT LEG. History of Any Multi-Drug Resistant Organisms: None Reported Past Surgical History: Back Surgery, Orthopedic Surgery Additional Past Surgical History / Comment(s): PAIN CLINIC PROCEDURES, JEMMA ROTATOR CUFF REPAIR, laminectomy Past Anesthesia/Blood Transfusion Reactions: No Reported Reaction Past Psychological History: No Psychological Hx Reported Smoking Status: Former smoker Past Alcohol Use History: Occasional Past Drug Use History: None Reported - Past Family History Mother Family Medical History: No Reported History Father Additional Family Medical History / Comment(s): heart disease General Exam Limitations: no limitations General appearance: alert, in no apparent distress Head exam: Present: atraumatic, normocephalic, normal inspection Respiratory exam: Present: normal lung sounds bilaterally. Absent: respiratory distress, wheezes, rales, rhonchi, stridor Cardiovascular Exam: Present: regular rate, normal rhythm, normal heart sounds. Absent: systolic murmur, diastolic murmur, rubs, gallop, clicks Extremities exam: Present: other (PICC line noted a left upper arm there is no erythema no drainage site appears well dressed. Arm is neurovascularly intact) Course Vital Signs 11/26/20 11/26/20 09:28 10:30 Temperature 98.5 F Pulse Rate 68 62 Respiratory 18 18 Rate Blood Pressure 142/92 133/87 O2 Sat by Pulse 96 96 Oximetry Medical Decision Making - Medical Decision Making 45-year-old male presented for nonfunctioning PICC line in the left arm. This was unable to be cleared using Cathflo. Case discussed with radiologist and which PICC line we placed by Dr. Kiser. Patient was discharged after procedure in stable condition. after Disposition Clinical Impression: Occluded PICC line, Status post peripherally inserted central catheter (PICC) central line placement Disposition: HOME SELF-CARE Condition: Stable Instructions (If sedation given, give patient instructions): Peripherally Inserted Central Catheters and Midline Catheters in... (DC), How to Flush Your PICC or Midline Catheter (ED) Additional Instructions: Please return to the Emergency Department if symptoms worsen or any other concerns. Is patient prescribed a controlled substance at d/c from ED?: No Referrals: Turner Gresham DO [Primary Care Provider] - 1-2 days Time of Disposition: 11:18
[2020-11-26] MEDS ORDERED: LIDOCAINE 1% INJ 10MG/ML (20 ML MDV) ONE ×2 (10:50→11:36)
[2020-11-26 10:57] VITALS: PULSE 62
[2020-11-26] MEDS ORDERED: LIDOCAINE 1% INJ 10MG/ML (20 ML MDV) SQ ONE (11:42)
[2020-11-26 12:03] VITALS: BP 150/73
--- NOTE | 2020-11-26 14:09 | IR ---
PICC LINE PLACEMENT: HISTORY: Infection requiring long-term antibiotic therapy PROCEDURE: Ultrasound and fluoroscopic guidance of PICC line placement. COMPLICATIONS: None ANESTHESIA: 1. 1% Lidocaine locally. FINDINGS/TECHNIQUE: The procedure was explained to the patient. The risks, complications, benefits and alternatives were discussed and any questions were answered. Informed consent was obtained. The patient was placed supine on the fluoroscopic table and prepped and draped in the usual sterile fash ion. Utilizing a 21 gauge needle and sonographic and fluoroscopic guidance, access in the right cep halic vein was achieved and there is placement of a 0.018 guidewire. The vein is patent. A 4-F weeks th was placed over the guidewire. The guidewire and dilator were removed and a 4-F. PICC line was pl aced through the sheath with the tip at the level of the SVC. The sheath was removed, the catheter w as flushed and sutured into position. The patient was stable throughout the procedure and remained s table upon discharge from the Department of Radiology. The vein puncture was patent under ultrasound. A mallory scale image was obtained to document patency of the vein punctured. All elements of the maximal barrier technique were utilized. FLUOROSCOPY TIME: 0.1 minute, one image submitted IMPRESSION: Successful PICC line placement under ultrasound and fluoroscopic guidance.
== END 2020-11-26 12:12 | disposition home or self-care (01) ==
LOC: EC 09:26 → SUPCPDRO 09:26 → EC 12:12
DX: T82.594A Other mechanical complication of infusion catheter, initial encounter (principal); I10 Essential (primary) hypertension; F17.200 Nicotine dependence, unspecified, uncomplicated; Z79.899 Other long term (current) drug therapy
CPT/HCPCS: 99283; 96374; 36573; J2001; J2997

== ENCOUNTER 2020-11-29 20:51 | Observation (INO) | payer BC ==
[2020-11-29] MEDS ORDERED: PIPERACILLIN-TAZOBACTAM 3.375 GM in SODIUM CHLORIDE 0.9% 100 ML IVPB STA (21:23)
[2020-11-29] MEDS ORDERED: ACETAMINOPHEN TAB 325 MG TAB PO STA (21:50)
[2020-11-29] MEDS ORDERED: SODIUM CHLORIDE 0.9% 1,000 ML IV ONE (21:53)
[2020-11-29] MEDS ORDERED: SODIUM CHLORIDE 0.9% 500 ML 500 ML IV ONE (21:53)
[2020-11-29] MEDS: SODIUM CHLORIDE 0.9% 1,000 ML IV SCH (22:01)
[2020-11-29 22:06] LABS: Basophils # (A) 0.1 k/uL (0-0.2); Basophils % (A) 2 %; Eosinophils # (A) 0.3 k/uL (0-0.7); Eosinophils % (A) 7 %; HCT 36.6 % (39.0-53.0); HGB 12.4 gm/dL (13.0-17.5); Lymphocytes # (A) 0.8 k/uL (1.0-4.8); Lymphocytes % (A) 15 %; MCH 30.3 pg (25.0-35.0); MCHC 33.9 g/dL (31.0-37.0); MCV 89.5 fL (80.0-100.0); Mean Platelet Volume 7.7; Monocytes # (A) 0.4 k/uL (0-1.0); Monocytes % (A) 9 %; Neutrophils # (A) 3.3 k/uL (1.3-7.7); Neutrophils % (A) 65 %; Platelet Count 333 k/uL (150-450); RBC 4.09 m/uL (4.30-5.90); RDW 13.1 % (11.5-15.5); WBC 5.1 k/uL (3.8-10.6)
[2020-11-29 22:19] LABS: ALT 54 U/L (4-49); AST 48 U/L (17-59); African American GFR (CKD) >90 (>60 ml/min/1.73 sqM); Albumin 3.5 g/dL (3.5-5.0); Alkaline Phosphatase 79 U/L (38-126); Anion Gap 8 mmol/L; Blood Urea Nitrogen 10 mg/dL (9-20); C Reactive Protein 68.8 mg/L (<10.0); Calcium 8.9 mg/dL (8.4-10.2); Carbon Dioxide 27 mmol/L (22-30); Chloride 99 mmol/L (98-107); Glucose 107 mg/dL (74-99); Non-African American GFR(CKD) >90 (>60 ml/min/1.73 sqM); Sodium 134 mmol/L (137-145); Total Bilirubin 0.4 mg/dL (0.2-1.3); Total Protein 6.4 g/dL (6.3-8.2)
--- NOTE | 2020-11-29 22:35 | XR ---
EXAMINATION TYPE: XR chest 2V DATE OF EXAM: 11/29/2020 COMPARISON: 11/21/2020 HISTORY: Postop fever TECHNIQUE: FINDINGS: Heart and mediastinum are normal. Lungs are clear. Diaphragm is normal. Bony thorax appears normal. IMPRESSION: Normal chest. No adverse change.
[2020-11-29] MEDS ORDERED: VANCOMYCIN IV PER PHARMACY 1 EACH MISC MISCELLANE PRN (22:39)
[2020-11-29] MEDS ORDERED: VANCOMYCIN 2,250 MG in SODIUM CHLORIDE 0.9% 500 ML 500 ML IVPB STA (22:40)
[2020-11-29 22:50] LABS: Erythrocyte Sedimentation Rate 46 mm/hr (0-15)
[2020-11-29] MEDS: MORPHINE SULFATE 4 MG/ML SYRINGE IVP PRN (22:53)
--- NOTE | 2020-11-29 22:58 | CT ---
EXAMINATION TYPE: CT lumbar spine w con DATE OF EXAM: 11/29/2020 COMPARISON: 11/20/2020 HISTORY: Surgery L5-S1, post operative fever and drainage. CT DLP: 2245.6 mGycm Automated exposure control for dose reduction was used. CONTRAST: Performed with IV Contrast, patient injected with 100 mL of Isovue 300. Images obtained from the level of T11-S2 vertebra with IV contrast. Lumbar vertebra have normal alignment. There is posterior fusion surgery from L4 to S1. There is some metal artifact. There is no compression fracture. There is disc prosthesis at L4-5 L5-S1. There is p osterior bone graft in the lower lumbar spine. There is subcutaneous midline mixed density consistent with incision site and seroma or hematoma. This measures up to 2.3 cm in thickness. There is subcuta neous edema bilaterally over the lower lumbar spine. I see no focal bone destruction. I see no evidence of spinal stenosis. Sacroiliac joints are intact. There is no lumbar paraspinal mass. IMPRESSION: Postsurgical changes with subcutaneous fluid accumulation in the midline incision that could be hemat bull or seroma. Abscess not excluded. No evidence of paraspinal abscess. No soft tissue air seen. Ther e is improvement in the spinal stenosis in the lower lumbar spine compared to old exam. Exam limited by metal artifact.
[2020-11-29] MEDS ORDERED: NALOXONE 0.4 MG/ML 1 ML VIAL IV PRN (23:45)
[2020-11-29] MEDS ORDERED: hydrALAZINE HCL 25 MG TAB PO STA (23:45)
--- NOTE | 2020-11-29 23:47 | ED ---
Fever HPI - General Chief Complaint: Fever Stated Complaint: Post Op Fever Time Seen by Provider: 11/29/20 21:06 Source: patient Mode of arrival: ambulatory Limitations: no limitations - History of Present Illness Initial Comments: 45-year-old male with history of recent postoperative infection confirmed positive for MRSA of spine 11/03/[address] Jama, patient has picc line and is on vancomycin q8h. Patient had intervention inregards to abscess 11/19/20 and was discharged 11/25/20. Pt states his pain seems to be getting better/staying the same since discharge but tongiht he had a fever and was concerned. pt states he had missed 2 doses of IV abx on Wednesday but otherwise has been compliant. Denies chills general malaise cough congestion and dysuria urgency frequency or pain with deep inspiration leg swelling calf pain hemoptysis. Patient denies dsypnea.she denies any loss of bowel bladder control urinary retention erectile dysfunction saddle anesthesia or paresthesias of the lower extremity he denies any radiation down the legs weakness of the legs. Patient appears nontoxic on arrival. 99.7F. - Related Data Home Medications Medication Instructions Recorded Confirmed Meloxicam 15 mg PO DAILY PRN 12/07/17 11/29/20 Atenolol [Tenormin] 100 mg PO DAILY 09/30/20 11/29/20 Tadalafil [Cialis] 20 mg PO DIRECTED PRN 09/30/20 11/29/20 hydroCHLOROthiazide [Hydrodiuril] 25 mg PO DAILY 09/30/20 11/29/20 Lidocaine 5% Patch [Lidoderm] 1 patch TRANSDERM DAILY PRN 11/16/20 11/29/20 Na Phos,M-B/Na Phos,Di-Ba [Fleet 133 ml RECTAL DAILY PRN 11/16/20 11/29/20 Adult] bisacodyL [Dulcolax] 5 mg PO DAILY PRN 11/16/20 11/29/20 methocarbamoL [Robaxin] 500 mg PO QID PRN 11/16/20 11/29/20 Citalopram Hydrobromide [CeleXA] 20 mg PO DAILY 11/18/20 11/29/20 Losartan Potassium 100 mg PO DAILY 11/18/20 11/29/20 Acetaminophen Tab [Tylenol] 1,000 mg PO DAILY PRN 11/29/20 11/29/20 Previous Rx's Medication Instructions Recorded Docusate [Colace] 100 mg PO DAILY PRN #20 capsule 10/02/20 Ibuprofen [Motrin] 800 mg PO Q8H PRN #90 tab 10/02/20 Vancomycin 1,750 mg IVPB Q8HR #84 bag 11/23/20 Cyclobenzaprine [Flexeril] 10 mg PO HS PRN #40 tab 11/25/20 Gabapentin 600 mg PO TID 3 Days #90 tab 11/25/20 Polyethylene Glycol 3350 [Miralax] 17 gm PO DAILY PRN #527 gm 11/25/20 Sennosides/Docusate Sodium [Senna 1 each PO BID PRN #30 capsule 11/25/20 Plus 8.6-50 mg Softgel] oxyCODONE-APAP 10-325MG [Percocet 1 - 2 tab PO Q4HR PRN 7 Days #70 11/25/20 10-325 mg] tab Allergies Allergy/AdvReac Type Severity Reaction Status Date / Time No Known Allergies Allergy Verified 11/29/20 22:46 Review of Systems ROS Statement: Those systems with pertinent positive or pertinent negative responses have been documented in the HPI. ROS Other: All systems not noted in ROS Statement are negative. Past Medical History Past Medical History: Hypertension Additional Past Medical History / Comment(s): HERNIATED DISCS WITH BACK PAIN RADIATING DOWN RIGHT LEG. History of Any Multi-Drug Resistant Organisms: None Reported Past Surgical History: Back Surgery, Orthopedic Surgery Additional Past Surgical History / Comment(s): PAIN CLINIC PROCEDURES, JEMMA ROTATOR CUFF REPAIR, laminectomy Past Anesthesia/Blood Transfusion Reactions: No Reported Reaction Past Psychological History: No Psychological Hx Reported Smoking Status: Former smoker Past Alcohol Use History: Occasional Past Drug Use History: None Reported - Past Family History Mother Family Medical History: No Reported History Father Additional Family Medical History / Comment(s): heart disease General Exam - General Exam Comments Initial Comments: General: The patient is awake and alert, in no distress Eye: +3 mm pupils are equal, round and reactive to light, extra-ocular movements are intact. No nystagmus. There is normal conjunctiva bilaterally. No signs of icterus. Ears, nose, mouth and throat: There are moist mucous membranes and no oral lesions. Neck: The neck is supple, there is no tenderness or JVD. Cardiovascular: There is a regular rate and rhythm. No murmur, rub or gallop is appreciated. Respiratory: Lungs are clear to auscultation, respirations are non-labored, breath sounds are equal. No wheezes, stridor, rales, or rhonchi. Gastrointestinal: Soft, non-distended, non-tender abdomen without masses or organomegaly noted. There is no rebound or guarding present. Musculoskeletal: Normal ROM, no tenderness. Strength 5/5 of the LE b/l. Sensation intact of the LE b/l including the saddle region. Radial and DP pulses equal bilaterally 2+. Neurological: A&O x 3. CN II-XII intact grossly, There are no obvious motor or sensory deficits. Coordination appears grossly intact. Speech is normal. Skin: Skin is warm and dry and no rashes. suture inplace midline of lower thoracic upper lumbar spine, no redness, unable to express discharge, there is dressing mortise fluid on patient bandage, no odors. no obvious purulence. Psychiatric: Cooperative, appropriate mood & affect, normal judgment. Limitations: no limitations Course Vital Signs 11/29/20 11/29/20 11/30/20 21:00 23:33 00:05 Temperature 99.7 F H 98.8 F Pulse Rate 84 83 Respiratory 16 18 Rate Blood Pressure 152/97 144/102 112/73 O2 Sat by Pulse 95 98 Oximetry Medical Decision Making - Medical Decision Making Labs mild leukocytosis. low grade feverr, cxr clear. denies urinary symptoms, weaknss, or incontinence. denies radicular symptoms. pt denies chest pain or dyspnea. patient case discussed with Dr. Jama's PA Namna Branch who recommends admission for observation and evaluation in the morning by orthopedic spine. pateint agreeable to admission. Dr Arzate agreeable to care plan. - Lab Data Result diagrams: 11/29/20 21:54 11/29/20 21:54 Lab Results 11/29/20 11/29/20 11/29/20 Range/Units 21:54 21:54 21:54 WBC 5.1 (3.8-10.6) k/uL RBC 4.09 L (4.30-5.90) m/uL Hgb 12.4 L (13.0-17.5) gm/dL Hct 36.6 L (39.0-53.0) % MCV 89.5 (80.0-100.0) fL MCH 30.3 (25.0-35.0) pg MCHC 33.9 (31.0-37.0) g/dL RDW 13.1 (11.5-15.5) % Plt Count 333 (150-450) k/uL MPV 7.7 Neutrophils % 65 % Lymphocytes % 15 % Monocytes % 9 % Eosinophils % 7 % Basophils % 2 % Neutrophils # 3.3 (1.3-7.7) k/uL Lymphocytes # 0.8 L (1.0-4.8) k/uL Monocytes # 0.4 (0-1.0) k/uL Eosinophils # 0.3 (0-0.7) k/uL Basophils # 0.1 (0-0.2) k/uL ESR 46 H (0-15) mm/hr Sodium 134 L (137-145) mmol/L Potassium 4.0 (3.5-5.1) mmol/L Chloride 99 (98-107) mmol/L Carbon Dioxide 27 (22-30) mmol/L Anion Gap 8 mmol/L BUN 10 (9-20) mg/dL Creatinine 0.64 L (0.66-1.25) mg/dL Est GFR (CKD-EPI)AfAm >90 (>60 ml/min/1.73 sqM) Est GFR (CKD-EPI)NonAf >90 (>60 ml/min/1.73 sqM) Glucose 107 H (74-99) mg/dL Plasma Lactic Acid Pollo 1.0 (0.7-2.0) mmol/L Calcium 8.9 (8.4-10.2) mg/dL Total Bilirubin 0.4 (0.2-1.3) mg/dL AST 48 (17-59) U/L ALT 54 H (4-49) U/L Alkaline Phosphatase 79 (38-126) U/L C-Reactive Protein 68.8 H (<10.0) mg/L Total Protein 6.4 (6.3-8.2) g/dL Albumin 3.5 (3.5-5.0) g/dL Urine Color Urine Appearance (Clear) Urine pH (5.0-8.0) Ur Specific [place] (1.001-1.035) Urine Protein (Negative) Urine Glucose (UA) (Negative) Urine Ketones (Negative) Urine Blood (Negative) Urine Nitrite (Negative) Urine Bilirubin (Negative) Urine Urobilinogen (<2.0) mg/dL Ur Leukocyte Esterase (Negative) Urine RBC (0-5) /hpf Urine WBC (0-5) /hpf Amorphous Sediment (None) /hpf Urine Mucus (None) /hpf Coronavirus (PCR) (Not Detectd) 11/29/20 11/29/20 Range/Units 23:13 23:51 WBC (3.8-10.6) k/uL RBC (4.30-5.90) m/uL Hgb (13.0-17.5) gm/dL Hct (39.0-53.0) % MCV (80.0-100.0) fL MCH (25.0-35.0) pg MCHC (31.0-37.0) g/dL RDW (11.5-15.5) % Plt Count (150-450) k/uL MPV Neutrophils % % Lymphocytes % % Monocytes % % Eosinophils % % Basophils % % Neutrophils # (1.3-7.7) k/uL Lymphocytes # (1.0-4.8) k/uL Monocytes # (0-1.0) k/uL Eosinophils # (0-0.7) k/uL Basophils # (0-0.2) k/uL ESR (0-15) mm/hr Sodium (137-145) mmol/L Potassium (3.5-5.1) mmol/L Chloride (98-107) mmol/L Carbon Dioxide (22-30) mmol/L Anion Gap mmol/L BUN (9-20) mg/dL Creatinine (0.66-1.25) mg/dL Est GFR (CKD-EPI)AfAm (>60 ml/min/1.73 sqM) Est GFR (CKD-EPI)NonAf (>60 ml/min/1.73 sqM) Glucose (74-99) mg/dL Plasma Lactic Acid Pollo (0.7-2.0) mmol/L Calcium (8.4-10.2) mg/dL Total Bilirubin (0.2-1.3) mg/dL AST (17-59) U/L ALT (4-49) U/L Alkaline Phosphatase (38-126) U/L C-Reactive Protein (<10.0) mg/L Total Protein (6.3-8.2) g/dL Albumin (3.5-5.0) g/dL Urine Color Yellow Urine Appearance Clear (Clear) Urine pH 7.0 (5.0-8.0) Ur Specific [place] 1.031 (1.001-1.035) Urine Protein Negative (Negative) Urine Glucose (UA) Negative (Negative) Urine Ketones Negative (Negative) Urine Blood Trace H (Negative) Urine Nitrite Negative (Negative) Urine Bilirubin Negative (Negative) Urine Urobilinogen <2.0 (<2.0) mg/dL Ur Leukocyte Esterase Negative (Negative) Urine RBC 3 (0-5) /hpf Urine WBC 1 (0-5) /hpf Amorphous Sediment Rare H (None) /hpf Urine Mucus Rare H (None) /hpf Coronavirus (PCR) Not Detected (Not Detectd) Disposition Clinical Impression: Postoperative fever, Leucocytosis, Wound drainage Disposition: ADMITTED IP TO THIS [facility] Condition: Stable Is patient prescribed a controlled substance at d/c from ED?: No Referrals: Turner Gresham DO [Primary Care Provider] - 1-2 days Time of Disposition: 23:46 Decision to Admit Reason: Admit from EC Decision Date: 11/29/20 Decision Time: 23:47
[2020-11-30 00:03] LABS: Amorphous Sediment,Urine Rare /hpf; Appearance,Urine Clear (Clear); Bilirubin,Urine Negative (Negative); Blood,Urine Trace (Negative); Color,Urine Yellow; Glucose,Urine (UA) Negative (Negative); Ketones,Urine Negative (Negative); Leukocyte Esterase,Urine Negative (Negative); Mucus,Urine Rare /hpf; Nitrite,Urine Negative (Negative); Protein,Urine Negative (Negative); RBC,Urine 3 /hpf (0-5); Specific Gravity,Urine 1.031 (1.001-1.035); Urobilinogen,Urine <2.0 mg/dL (<2.0); WBC,Urine 1 /hpf (0-5)
[2020-11-30 01:25] VITALS: TEMP 98.3
[2020-11-30] MEDS: MORPHINE SULFATE 4 MG/ML SYRINGE IVP PRN ×2 (01:54→04:57)
[2020-11-30] MEDS: SODIUM CHLORIDE 0.9% 1,000 ML IV SCH (04:59)
[2020-11-30] MEDS ORDERED: VANCOMYCIN 2,000 MG in SODIUM CHLORIDE 0.9% 500 ML 500 ML IVPB SCH (07:00)
[2020-11-30 07:36] VITALS: BP 148/105; PULSE 98; RESP 16
[2020-11-30] MEDS ORDERED: oxyCODONE-APAP 10-325MG 1 EACH TAB PO PRN (07:49)
[2020-11-30] MEDS ORDERED: HYDROmorphone 1 MG/ML 1 ML SYRINGE IVP PRN (07:49)
[2020-11-30] MEDS ORDERED: diazePAM 5 MG TAB PO STA (08:57)
--- NOTE | 2020-11-30 09:05 | CT ---
EXAMINATION TYPE: CT lumbar spine wo con DATE OF EXAM: 11/30/2020 COMPARISON: 11/29/2020 HISTORY: 45-year-old male post op pain and fever TECHNIQUE: Contiguous axial scanning of the lumbar spine without IV contrast. Coronal and sagittal re constructions performed. CT DLP: 2762.7 mGycm Automated exposure control for dose reduction was used. FINDINGS: Redemonstrated fluid collection along the surgical site of the posterior midline extending from the L 1 level down to L3 for a span of 8.0 cm craniocaudal. Superiorly, the collection measures up to 2.5 c m wide. At the L2 level, the collection extends deep into the paraspinal musculature to surround the L2 spino us process and lamina on either side. Refer to axial image 54. At the L3 level, the fluid extends towards the left lateral aspect of the spinous process and lamina, refer to axial image 62. This deep extension at L2 and L3 may be slightly increased. Postsurgical changes of L4-S1 posterior and interbody fusion with laminectomies. Bone graft material is present extending from the L2-S1 levels on both sides. No obvious psoas inflammation is identified. IMPRESSION: 1. REDEMONSTRATED FLUID COLLECTION ALONG THE POSTERIOR MIDLINE SPANNING NEARLY 8.0 CM CRANIOCAUDAL AN D MEASURING 2.5 CM WIDE. THIS EXTENDS FROM THE L1 LEVEL DOWN TO L3. AT THE L2 LEVEL, FLUID EXTENDS IN TO THE PARASPINAL MUSCULATURE TO SURROUND THE L2 SPINOUS PROCESS AND LAMINA ON EITHER SIDE. AT THE L3 LEVEL, FLUID EXTENDS TO THE LEFT LATERAL ASPECT OF THE SPINOUS PROCESS AND LAMINA. THIS DEEP EXTENSI ON AT L2 AND L3 APPEARS SLIGHTLY INCREASED FROM 11/29/2020. CORRELATE FOR INFECTIVE FLUID/ABSCESS. 2. UNDERLYING POSTSURGICAL CHANGES OF L4-S1 POSTERIOR AND INTERBODY FUSION WITH LAMINECTOMIES. NONCON SOLIDATED LATERAL OSSEOUS FUSION BONE GRAFT MATERIAL IS SEEN FROM L2-S1 LEVELS.
--- NOTE | 2020-11-30 10:55 | P.HPOR ---
History of Present Illness H&P Date: 11/30/20 Chief Complaint: fever 45 yo male 10 days s/p I&D with revision decompression, epidural phlegmon evacuation, L4-5 osteodiscitis evacuation and L4-S1 fusion with abx spacer leonor cement presented to the ED with c/o fevers at home of 104. He states he has never had a fever before and this scared him so he came in. He states some drainage from his wound that happened yesterday. His home nurse has been changing his dressings and put a new one on yesterday. He states that he has pain in his back. Denies any fevers today. States he was getting his abx, but due to some issue with the home nurse and his PICC he states he missed a dose and now he is really worried that his infection is back. He denies any bowel or bladder issues. Denies any perineal numbnes/tingling. States he has pain in his right leg. Denies any sob/cp at this time. Review of Systems 14 points review of systems completed and as stated in HPI, all other systems reviewed are negative. Past Medical History Past Medical History: Hypertension Additional Past Medical History / Comment(s): HERNIATED DISCS WITH BACK PAIN RADIATING DOWN RIGHT LEG. History of Any Multi-Drug Resistant Organisms: None Reported Past Surgical History: Back Surgery Additional Past Surgical History / Comment(s): PAIN CLINIC PROCEDURES, JEMMA ROTATOR CUFF REPAIR, laminectomy x2 Past Anesthesia/Blood Transfusion Reactions: No Reported Reaction Past Psychological History: No Psychological Hx Reported Smoking Status: Current every day smoker Past Alcohol Use History: Occasional Additional Past Alcohol Use History / Comment(s): SMOKES 1 PPD, SMOKING SINCE 13 YEARS OLD Past Drug Use History: None Reported - Past Family History Mother Family Medical History: No Reported History Father Additional Family Medical History / Comment(s): heart disease Medications and Allergies Home Medications Medication Instructions Recorded Confirmed Type Meloxicam 15 mg PO DAILY PRN 12/07/17 11/29/20 History Atenolol [Tenormin] 100 mg PO DAILY 09/30/20 11/29/20 History Tadalafil [Cialis] 20 mg PO DIRECTED PRN 09/30/20 11/29/20 History hydroCHLOROthiazide [Hydrodiuril] 25 mg PO DAILY 09/30/20 11/29/20 History Docusate [Colace] 100 mg PO DAILY PRN #20 capsule 10/02/20 11/29/20 Rx Ibuprofen [Motrin] 800 mg PO Q8H PRN #90 tab 10/02/20 11/29/20 Rx Lidocaine 5% Patch [Lidoderm] 1 patch TRANSDERM DAILY PRN 11/16/20 11/29/20 History Na Phos,M-B/Na Phos,Di-Ba [Fleet 133 ml RECTAL DAILY PRN 11/16/20 11/29/20 History Adult] bisacodyL [Dulcolax] 5 mg PO DAILY PRN 11/16/20 11/29/20 History methocarbamoL [Robaxin] 500 mg PO QID PRN 11/16/20 11/29/20 History Citalopram Hydrobromide [CeleXA] 20 mg PO DAILY 11/18/20 11/29/20 History Losartan Potassium 100 mg PO DAILY 11/18/20 11/29/20 History Vancomycin 1,750 mg IVPB Q8HR #84 bag 11/23/20 11/29/20 Rx Cyclobenzaprine [Flexeril] 10 mg PO HS PRN #40 tab 11/25/20 11/29/20 Rx Gabapentin 600 mg PO TID 3 Days #90 tab 11/25/20 11/29/20 Rx Polyethylene Glycol 3350 [Miralax] 17 gm PO DAILY PRN #527 gm 11/25/20 11/29/20 Rx Sennosides/Docusate Sodium [Senna 1 each PO BID PRN #30 capsule 11/25/20 11/29/20 Rx Plus 8.6-50 mg Softgel] oxyCODONE-APAP 10-325MG [Percocet 1 - 2 tab PO Q4HR PRN 7 Days #70 11/25/20 11/29/20 Rx 10-325 mg] tab Acetaminophen Tab [Tylenol] 1,000 mg PO DAILY PRN 11/29/20 11/29/20 History Allergies Allergy/AdvReac Type Severity Reaction Status Date / Time No Known Allergies Allergy Verified 11/29/20 22:46 Physical Examination Osteopathic Statement: *. No significant issues noted on an osteopathic structural exam other than those noted in the History and Physical/Consult. PHYSICAL EXAMINATION: Vitals: Stable at this time. Temperature is 98.7. General: Awake, alert, appropriate for age, in no acute distress. HEENT: No unusual neck masses around region of lateral neck triangle, thyroid, supraclavicular groove. Heart: Regular rate and rhythm, normal S1, S2 and no murmur/gallop. Lungs: Clear to auscultation bilaterally with no use of accessory muscles. Extremities: Skin warm and dry without no acute lesions, coloration, temperature, skin intact, no tenderness or erythema. Integument: Hairy patches: Absent Dorsal skin dimples: Absent Cafe au lait spots: Absent Surgical incisions: His surgical incision is clean dry and intact. The skin is healed. Stitches and jeff are in place. There is no erythema or ecchymosis or edema. There is no fluctuance there is no tenderness to palpation today. There is nothing draining from the wound. When the dressing was removed there was a small spot in the midportion which was examined. There is no excessive drainage that can be seen at this time. No purulence. Palpation: Please see Pain drawing on Intake sheet for further detail. (Tenderness = T, Nontender = NT, Swelling = S, Ecchymosis = E) Findings on Midline and paraspinal palpation and percussion: Cervical: NT Thoracic: NT Lumbar: Mild tenderness to palpation around the incision but otherwise fairly benign Sacral: NT Special findings: None VASCULAR STATUS : Wrist Pulses: 2/4 bilateral radial and ulnar Pedal Pulses: 2/4 bilateral DP and PT Color: Normal Edema: None NEUROLOGIC EXAMINATION: Mental Status: Awake and alert, fully oriented, with normal attention, concentration and memory, and fluent, appropriate speech. Cranial Nerves: I: Olfactory not tested. II: Visual acuity normal, no visual field deficit noted with confrontation. III,IV: Normal pupillary reflexes & intact extraocular movements without nystagmus. V,: Intact symmetrical facial sensation. VII: Intact symmetrical facial motor movement VIII: Hearing intact. IX,X: Intact gag, swallow, & normal voice. XI: Sternocleidomastoid, trapezius function intact. XII: Tongue midline with normal movements. Special Tests: L'hermitte's Sign: Absent Spurling'Sign: Absent Bilateral Cubital percussion test: Absent Bilateral Karolina-Tinel sign - Carpal region: Absent Bilateral Straight Leg Raising: Absent Bilateral Motor Exam (0-5/5, N/T) STRENGTH UPPER EXTREMITY Shoulder Abd (Not part of DONNY Motor score): RIGHT 5 LEFT 5 Elbow Flexors: RIGHT 5 LEFT 5 Elbow Extensor: RIGHT 5 LEFT 5 Wrrist Dorsiflexors: RIGHT 5 LEFT 5 Finger Abductor: RIGHT 5 LEFT 5 Windows Server Specialist: RIGHT 5 LEFT 5 LOWER EXTREMITY Hip Flexor (Not part of DONNY Motor Score): RIGHT 5 LEFT 5 Knee Flexor: RIGHT 5 LEFT 5 Knee Extensor: RIGHT 5 LEFT 5 Ankle Dorsiflexion: RIGHT 5 LEFT 5 Ankle Plantarflexion: RIGHT 5 LEFT 5 EHL: RIGHT 5 LEFT 5 FHL: RIGHT 5 LEFT 5 DONNY Motor Score: RIGHT 50/50 LEFT 50/50 REFLEXES Biecp: RIGHT 2 LEFT 2 Tricep: RIGHT 2 LEFT 2 Brachioradialis: RIGHT 2 LEFT 2 Patellar: RIGHT 2 LEFT 2 Achilles: RIGHT 2 LEFT 2 Pathological Reflexes Zavala's: RIGHT Absent LEFT Absent Babinski: RIGHT Absent LEFT Absent Clonus: RIGHT None LEFT None SENSORY Joint Position: Intact bilaterally Vibration Intact bilaterally Pain and LT sense Intact C5-T1 and L2-S1 Dermatomal deficit None Gait and Functional Evaluation: Ambulatory aids: Independent Romberg's test: Intact bilaterally. Toe walk/ heel walk / heel-toe walk intact while maintaining satisfactory balance. Squatting and straightening out without assistance to a minimum of 60 degrees knee flexion Single leg stance: intact/ Trendelenburg sign negative bilaterally Hand and finger dexterity intact bilaterally. Disdiadochokinesis examination negative bilaterally. Results - Labs Labs: Abnormal Lab Results - Last 24 Hours (Table) 11/29/20 11/29/20 11/29/20 Range/Units 21:54 21:54 23:13 RBC 4.09 L (4.30-5.90) m/uL Hgb 12.4 L (13.0-17.5) gm/dL Hct 36.6 L (39.0-53.0) % Lymphocytes # 0.8 L (1.0-4.8) k/uL ESR 46 H (0-15) mm/hr Sodium 134 L (137-145) mmol/L Creatinine 0.64 L (0.66-1.25) mg/dL Glucose 107 H (74-99) mg/dL ALT 54 H (4-49) U/L C-Reactive Protein 68.8 H (<10.0) mg/L Urine Blood Trace H (Negative) Amorphous Sediment Rare H (None) /hpf Urine Mucus Rare H (None) /hpf H & H 11/29/20 Range/Units 21:54 Hgb 12.4 L (13.0-17.5) gm/dL Hct 36.6 L (39.0-53.0) % Previous CRP was 19.9 original CRP was 226 today except 68.8. ESR is 46 these were mildly elevated from before. Result Diagrams: 11/29/20 21:54 11/29/20 21:54 Assessment and Plan Assessment: 45-year-old male 10 days status post revision decompression evacuation of epidural he phlegmon evacuation L4 5 and L5-S1 osteo-discitis with L4-S1 fusion and antibiotic spacer placement with subjective fevers Plan: I discussed at length the patients clinical signs and symptoms as well as labs and imaging finding. CT scan does show a fluid collection that is likely related to post operative seroma. The patient has abx beads and cement placed deep which can cause an increase in drainage after surgery. His labs WBC count is 5.1 which is normal. He has not had a fever while here in the hospital, nor did he have one when he presented to the hospital. His CRP is slightly elevated from previous CRP in house at 68 and ESR is 47. These are both decreased substantially from the CRP of 226 when he presented with infection. His incision is clean and dry and there is no evidence of drainage, purulence, erythema, fluid collection or drainage at this time. The skin around the incision is irritated from the tape being put on by the home nurse. He did state he missed a dose of abx at home due to his PICC line being blocked and needing it to be redone, but other than that he has been keeping up with dosages. He states he is walking around without issues other than pain in his back from surgery. He denies any new weakness, numbness or tingling. No bowel or bladder issues. At this point, I do not think that there are any alarming symptoms, signs of sepsis or other issues. This is his post operative course, and the infection while better, is not completely gone yet. And I discussed this with the patient at length. I do not think it advantageous at this point to reopen his back as he is healing well and he agreed and does not want that. He stated he was just at his limit and was very lachrymose. He is frustrated with the whole situation and I agree with him on this point, it is very frustrating, but I encouraged him that we were going to get through it and that we would treat him the best we possibly could to get this infection to go. After talking about various scenarios and answering questions about home and how to proceed we came up with the plan of going home today as he does not want to stay in the hospital and I do not see a reason for him to stay at this point. He has an office appointment scheduled for this coming Wednesday and will keep this appointment. I also offered to see him on this up coming Wednesday as well to check in and he said he would think about it and see how Wednesday goes. He will need refills on his prescriptions on Wednesday and this is appropriate. We will discharge him home today he has appropriate medications antibiotics and care at home will follow-up with him Wednesday for reevaluation and discussion. He was comfortable with this and would like to go home after his antibiotic dose. Hospital.
--- NOTE | 2020-11-30 11:13 | P.DS ---
Providers Date of admission: 11/30/20 00:29 Expected date of discharge: 11/30/20 Attending physician: Abdirizak Jama DO [facility]: [facility] Course: Date of admission: 11/29/2020 Date of discharge: 11/30/2020 Admission diagnosis: Status post revision decompression evacuation of epidural he phlegmon evacuation L4 5 and L5-S1 osteo-discitis with L4-S1 fusion and antibiotic spacer placement with subjective fevers Discharge diagnosis: Same Attending physician: Dr. Jama Surgical procedures: None Brief history: Patient is a 45-year-old male who presented to [facility] last night with subjective fevers. Patient recently underwent a significant lumbar spine surgery with Dr. Jama on 11/19/2020. Patient has remained on IV antibiotics via PICC line at home. Patient did have a smallish with PICC line this weekend missed a few doses of antibiotics, this was taken care of. Patient also noted a small amount of drainage from the incision yesterday. With the fevers he was concerned about infection and return to the hospital for reevaluation. Patient was admitted to the hospital under observation status for further evaluation. 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 Jama. Hospital course: A very long discussion was had with the patient and Dr. Jama at bedside prior to discharge regarding his current state. Current workup exam has revealed no evidence signs of the patient being septic or infection worsening. We will continue current treatment with the IV antibiotics along with his current restrictions of the lumbar spine. Wound care instructions were discussed with the patient at bedside today. He will resume his medications that he's been taking at home, this including the pain medication, muscle relaxers, stool softeners and IV antibiotics. Plan is for the patient to follow-up with Dr. Jama in the office on 12/02/2020. Discharge condition/disposition: Patient will be discharged home in stable condition. Discharge medications: Instructions are given on resumption of patient's normal daily medications per primary care recommendation, in addition patient will be prescribed no new medication. Patient Condition at Discharge: Stable Plan - Discharge Summary New Discharge Prescriptions: No Action Meloxicam 15 mg PO DAILY PRN PRN Reason: Pain Atenolol [Tenormin] 100 mg PO DAILY hydroCHLOROthiazide [Hydrodiuril] 25 mg PO DAILY Tadalafil [Cialis] 20 mg PO DIRECTED PRN PRN Reason: E.D. Docusate [Colace] 100 mg PO DAILY PRN #20 capsule PRN Reason: Constipation Ibuprofen [Motrin] 800 mg PO Q8H PRN #90 tab PRN Reason: Mild Pain methocarbamoL [Robaxin] 500 mg PO QID PRN PRN Reason: BACK PAIN bisacodyL [Dulcolax] 5 mg PO DAILY PRN PRN Reason: Constipation Na Phos,M-B/Na Phos,Di-Ba [Fleet Adult] 133 ml RECTAL DAILY PRN PRN Reason: Constipation Lidocaine 5% Patch [Lidoderm] 1 patch TRANSDERM DAILY PRN PRN Reason: Pain Citalopram Hydrobromide [CeleXA] 20 mg PO DAILY Losartan Potassium 100 mg PO DAILY Vancomycin 1,750 mg IVPB Q8HR #84 bag Cyclobenzaprine [Flexeril] 10 mg PO HS PRN #40 tab PRN Reason: Spasms Gabapentin 600 mg PO TID 3 Days #90 tab Polyethylene Glycol 3350 [Miralax] 17 gm PO DAILY PRN #527 gm PRN Reason: Constipation oxyCODONE-APAP 10-325MG [Percocet 10-325 mg] 1 - 2 tab PO Q4HR PRN 7 Days #70 tab PRN Reason: Pain Sennosides/Docusate Sodium [Senna Plus 8.6-50 mg Softgel] 1 each PO BID PRN #30 capsule PRN Reason: Constipation Acetaminophen Tab [Tylenol] 1,000 mg PO DAILY PRN PRN Reason: Pain Discharge Medication List Meloxicam 15 mg PO DAILY PRN 12/07/17 [History] Atenolol [Tenormin] 100 mg PO DAILY 09/30/20 [History] Tadalafil [Cialis] 20 mg PO DIRECTED PRN 09/30/20 [History] hydroCHLOROthiazide [Hydrodiuril] 25 mg PO DAILY 09/30/20 [History] Docusate [Colace] 100 mg PO DAILY PRN #20 capsule 10/02/20 [Rx] Ibuprofen [Motrin] 800 mg PO Q8H PRN #90 tab 10/02/20 [Rx] Lidocaine 5% Patch [Lidoderm] 1 patch TRANSDERM DAILY PRN 11/16/20 [History] Na Phos,M-B/Na Phos,Di-Ba [Fleet Adult] 133 ml RECTAL DAILY PRN 11/16/20 [History] bisacodyL [Dulcolax] 5 mg PO DAILY PRN 11/16/20 [History] methocarbamoL [Robaxin] 500 mg PO QID PRN 11/16/20 [History] Citalopram Hydrobromide [CeleXA] 20 mg PO DAILY 11/18/20 [History] Losartan Potassium 100 mg PO DAILY 11/18/20 [History] Vancomycin 1,750 mg IVPB Q8HR #84 bag 11/23/20 [Rx] Cyclobenzaprine [Flexeril] 10 mg PO HS PRN #40 tab 11/25/20 [Rx] Gabapentin 600 mg PO TID 3 Days #90 tab 11/25/20 [Rx] Polyethylene Glycol 3350 [Miralax] 17 gm PO DAILY PRN #527 gm 11/25/20 [Rx] Sennosides/Docusate Sodium [Senna Plus 8.6-50 mg Softgel] 1 each PO BID PRN #30 capsule 11/25/20 [Rx] oxyCODONE-APAP 10-325MG [Percocet 10-325 mg] 1 - 2 tab PO Q4HR PRN 7 Days #70 tab 11/25/20 [Rx] Acetaminophen Tab [Tylenol] 1,000 mg PO DAILY PRN 11/29/20 [History] Follow up Appointment(s)/Referral(s): Turner Gresham DO [Primary Care Provider] - 1-2 days Abdirizak Jama DO [Doctor of Osteopathic Medicine] - 12/02/20 Activity/Diet/Wound Care/Special Instructions: Discharge instructions: 1. Patient will resume his previous discharge instructions with regards to restrictions of the low back 2. Okay to redress the incision of the low back, avoid the foam type tape. Mild skin tape is fine at this time 3. He will resume his IV antibiotics after discharge 4. Resume pain medication after discharge 5. Resume still suffers after discharge to home 6. Plan [facility] Ricardo on 12/02/2020 Discharge Disposition: HOME WITH HOME HEALTH SERVICES
[2020-12-01] MEDS ORDERED: VANCOMYCIN TROUGH DUE 1 EACH MISC MISCELLANE ONE (06:00)
== END 2020-11-30 11:52 | disposition home health service (06) ==
LOC: EC 20:51 → 6NMEDSUR 11-30 00:29
PROVIDERS: ADMIT Orthopaedic Surgery; ATTEND Orthopaedic Surgery
DX: R50.82 Postprocedural fever (principal); D72.829 Elevated white blood cell count, unspecified; I10 Essential (primary) hypertension; M79.604 Pain in right leg; T36.96XA Underdosing of unspecified systemic antibiotic, initial encounter; F17.210 Nicotine dependence, cigarettes, uncomplicated; Z98.1 Arthrodesis status; K59.00 Constipation, unspecified; M62.838 Other muscle spasm; Z79.1 Long term (current) use of non-steroidal anti-inflammatories (NSAID); Z79.899 Other long term (current) drug therapy; Z79.891 Long term (current) use of opiate analgesic; Z20.822 Contact with and (suspected) exposure to COVID-19; Z95.9 Presence of cardiac and vascular implant and graft, unspecified; Z86.14 Personal history of Methicillin resistant Staphylococcus aureus infection; Z82.49 Family history of ischemic heart disease and other diseases of the circulatory system
CPT/HCPCS: 96376; 96366 ×2; 96375 ×2; 96365; 99285; 36415; 93005; 80053; 85652; 83605; 85025; 86140; 81001; 87040; 87635; 71046; 72131; 72132; G0378; J2543; J3370 ×2; J2270 ×2; J1170; Q9967

== ENCOUNTER 2020-12-07 14:06 | Inpatient (IN) | payer BC ==
[2020-12-07] MEDS ORDERED: diphenhydrAMINE 50 MG/ML 1 ML VIAL IVP STA (14:39)
[2020-12-07] MEDS ORDERED: SODIUM CHLORIDE 0.9% 1,000 ML IV STA ×3 (14:39→16:40)
[2020-12-07] MEDS ORDERED: KETOROLAC 15 MG/ML 1 ML VIAL IVP STA (14:56)
[2020-12-07] MEDS ORDERED: ACETAMINOPHEN TAB 500 MG TAB PO STA (15:06)
[2020-12-07] MEDS ORDERED: ONDANSETRON 4 MG/2 ML VIAL IVP STA (15:08)
[2020-12-07 15:18] LABS: Basophils # (A) 0.1 k/uL (0-0.2); Basophils % (A) 1 %; Eosinophils # (A) 0.8 k/uL (0-0.7); Eosinophils % (A) 7 %; HCT 44.1 % (39.0-53.0); HGB 14.4 gm/dL (13.0-17.5); Lymphocytes # (A) 0.4 k/uL (1.0-4.8); Lymphocytes % (A) 4 %; MCH 29.5 pg (25.0-35.0); MCHC 32.7 g/dL (31.0-37.0); MCV 90.1 fL (80.0-100.0); Mean Platelet Volume 7.7; Monocytes # (A) 0.6 k/uL (0-1.0); Monocytes % (A) 5 %; Neutrophils # (A) 9.3 k/uL (1.3-7.7); Neutrophils % (A) 82 %; Platelet Count 313 k/uL (150-450); RDW 13.8 % (11.5-15.5); WBC 11.3 k/uL (3.8-10.6)
[2020-12-07 15:30] LABS: Total Bilirubin 0.7 mg/dL (0.2-1.3); Total Protein 5.5 g/dL (6.3-8.2)
[2020-12-07 15:50] LABS: C Reactive Protein 145.5 mg/L (<10.0)
[2020-12-07 15:54] LABS: Potassium 4.2 mmol/L (3.5-5.1)
[2020-12-07] MEDS: oxyCODONE-APAP 10-325MG 1 EACH TAB PO PRN (16:41)
[2020-12-07] MEDS ORDERED: NALOXONE 0.4 MG/ML 1 ML VIAL IV PRN (16:47)
[2020-12-07] MEDS ORDERED: ONDANSETRON 4 MG/2 ML VIAL IVP PRN (16:47)
[2020-12-07] MEDS ORDERED: ACETAMINOPHEN TAB 325 MG TAB PO PRN (16:47)
--- NOTE | 2020-12-07 16:47 | ED ---
General Adult HPI - General Chief complaint: Fever Stated complaint: Revisit Post Op Fever Time Seen by Provider: 12/07/20 14:30 Source: patient Mode of arrival: wheelchair - History of Present Illness Initial comments: Patient is a 45-year-old male presenting to the emergency Department with complaints of a fever, rash on his back x 1 day. Patient is 15 days postop revision of L4-L5 osteo-discitis with L4-S1 fusion and antibiotic spacer placement. Patient has been on vancomycin 3 times a day for osteomyelitis. Patient presents today with intermittent fevers for the past 2 days as well as development of a red rash that started today. states she noticed a rash in the back of his neck and extending down his whole back. Patient seen at Dr. Jama's office 3 days ago, incision has been looking well, no drainage. They did check his vancomycin level and it was high so they agreed to lower the dosage, they have not received this new dosage yet. Patient is complaining of nausea, no vomiting. He continues to have back pain but no more than he normally does. He does take Percocet tens at home for this. He did take one early this morning. Denies any chest pain or shortness of breath. No diarrhea, no abdominal pain. He has no further complaints at this time. Patient arrived febrile 103.1, tach at 114, blood pressure initially was 81/49, it did increase to 117/77. - Related Data Home Medications Medication Instructions Recorded Confirmed Meloxicam 15 mg PO DAILY PRN 12/07/17 12/07/20 Atenolol [Tenormin] 100 mg PO DAILY 09/30/20 12/07/20 Tadalafil [Cialis] 20 mg PO DAILY PRN 09/30/20 12/07/20 hydroCHLOROthiazide [Hydrodiuril] 25 mg PO DAILY 09/30/20 12/07/20 Lidocaine 5% Patch [Lidoderm] 1 patch TRANSDERM DAILY PRN 11/16/20 12/07/20 Na Phos,M-B/Na Phos,Di-Ba [Fleet 133 ml RECTAL DAILY PRN 11/16/20 12/07/20 Adult] bisacodyL [Dulcolax] 5 mg PO DAILY PRN 11/16/20 12/07/20 Citalopram Hydrobromide [CeleXA] 20 mg PO DAILY 11/18/20 12/07/20 Losartan Potassium 100 mg PO DAILY 11/18/20 12/07/20 Acetaminophen Tab [Tylenol] 1,000 mg PO DAILY PRN 11/29/20 12/07/20 Diazepam [Valium] 10 mg PO BID 12/07/20 12/07/20 Sennosides/Docusate Sodium [Senna 1 tab PO BID PRN 12/07/20 12/07/20 Plus 8.6-50 mg Softgel] Previous Rx's Medication Instructions Recorded Gabapentin 600 mg PO TID 3 Days #90 tab 11/25/20 Polyethylene Glycol 3350 [Miralax] 17 gm PO DAILY PRN #527 gm 11/25/20 oxyCODONE-APAP 10-325MG [Percocet 1 - 2 tab PO Q4HR PRN 7 Days #70 11/25/20 10-325 mg] tab Allergies Allergy/AdvReac Type Severity Reaction Status Date / Time No Known Allergies Allergy Verified 12/07/20 17:11 Review of Systems ROS Statement: Those systems with pertinent positive or pertinent negative responses have been documented in the HPI. ROS Other: All systems not noted in ROS Statement are negative. Past Medical History Past Medical History: Hypertension Additional Past Medical History / Comment(s): HERNIATED DISCS WITH BACK PAIN RADIATING DOWN RIGHT LEG., Osteomyelitis, spinal fusion. History of Any Multi-Drug Resistant Organisms: None Reported, MRSA Date of last positivie culture/infection: Nov 2019 MDRO Source:: Spine Past Surgical History: Back Surgery Additional Past Surgical History / Comment(s): PAIN CLINIC PROCEDURES, JEMMA ROTATOR CUFF REPAIR, laminectomy x2 Past Anesthesia/Blood Transfusion Reactions: No Reported Reaction Past Psychological History: No Psychological Hx Reported Smoking Status: Current every day smoker Past Alcohol Use History: Occasional Past Drug Use History: None Reported - Past Family History Mother Family Medical History: No Reported History Father Additional Family Medical History / Comment(s): heart disease General Exam - General Exam Comments Initial Comments: GENERAL: Patient is well-developed and well-nourished. Patient is nontoxic and in moderate distress. HEAD: Atraumatic, normocephalic. EYES: Pupils equal round and reactive to light, extraocular movements intact, sclera anicteric, conjunctiva are normal. Eyelids were unremarkable. ENT: TMs normal, nares patent, oropharynx clear without exudates. Moist mucous membranes. NECK: Normal range of motion, supple without lymphadenopathy or JVD. LUNGS: Unlabored respirations. Breath sounds clear to auscultation bilaterally and equal. No wheezes rales or rhonchi. HEART: Tachycardia rate and rhythm without murmurs, rubs or gallops. ABDOMEN: Soft, nontender, normoactive bowel sounds. No guarding, no rebound. No masses appreciated. : Deferred MUSCULOSKELETAL: Normal extremities with adequate strength and normal range of motion, no pitting or edema. No clubbing or cyanosis. NEUROLOGICAL: Patient is alert and oriented x 3. Motor and sensory are also intact. Cranial nerves II through XII grossly intact. Symmetrical smile. Normal speech, normal gait. PSYCH: Normal mood, normal affect. SKIN: Warm, Dry, normal turgor. Patient has erythematous rash extending from the back of his neck and down his entire back, does extend to the posterior bilateral arms as well as his upper glutes. Course Vital Signs 12/07/20 12/07/20 12/07/20 14:13 15:17 16:09 Temperature 98.1 F 103.1 F H 102.8 F H Pulse Rate 125 H 114 H 113 H Respiratory 20 20 18 Rate Blood Pressure 81/49 117/77 89/64 O2 Sat by Pulse 99 95 93 L Oximetry 12/07/20 12/07/20 12/07/20 16:40 16:48 17:10 Temperature Pulse Rate 113 H 105 H 112 H Respiratory 18 18 18 Rate Blood Pressure 77/44 93/70 91/78 O2 Sat by Pulse 95 94 L 95 Oximetry 12/07/20 17:32 Temperature Pulse Rate 98 Respiratory 18 Rate Blood Pressure 92/48 O2 Sat by Pulse 95 Oximetry EKG Findings - EKG Comments: EKG Findings:: Sinus tachycardia, otherwise low voltage QRS, no signs of acute process. Ventricular rate 115, [place] interval 150, QT 344. Medical Decision Making - Medical Decision Making Patient is a 45-year-old male presenting with a fever and a rash on his back that started yesterday. Patient had revision of L4-L5 osteo-discitis with L4-S1 fusion and antibiotic spacer placement on 11/22/[address] Jama. Patient arrived febrile 103.1, tachycardia, hypotensive 81/49. Patient did have a large erythematous rash extending from his posterior neck, down his back, extending down into his bottom. Patient's surgical incision looks clean, dry and intact, no drainage. Labs reveal a white count 11.3, lactic acid is 2.8. Creatinine is elevated at 3.99 which is a big increased from his baseline which is 0.9. CRP is elevated at 145 which has been up from his most recent, Vanco trough is 60.1. I did speak with Dr. Gomez who recommended admission, discontinuing the vancomycin, starting daptomycin. Patient was accepted by Dr. Cisse, will consult nephrology as well. I did speak to Dr. Ricardo who stated that Dr. Jama is on vacation for a week, and the doctor that is covering for him is at [facility]. Dr. Gomez and Dr. Cisse are okay with patient staying here. Patient has received a total of 3 L bolus of fluids. Pressure is currently 93/70 and stable. Patient has also received dose of Zofran, Toradol, Benadryl and Tylenol in the ER. Patient will be admitted. Rapid Covid is negative. Case discussed with Dr. Green. - Lab Data Result diagrams: 12/07/20 15:05 12/07/20 15:05 Lab Results 12/07/20 12/07/20 12/07/20 Range/Units 15:05 15:05 15:05 WBC 11.3 H (3.8-10.6) k/uL RBC 4.90 (4.30-5.90) m/uL Hgb 14.4 (13.0-17.5) gm/dL Hct 44.1 (39.0-53.0) % MCV 90.1 (80.0-100.0) fL MCH 29.5 (25.0-35.0) pg MCHC 32.7 (31.0-37.0) g/dL RDW 13.8 (11.5-15.5) % Plt Count 313 (150-450) k/uL MPV 7.7 Neutrophils % 82 % Lymphocytes % 4 % Monocytes % 5 % Eosinophils % 7 % Basophils % 1 % Neutrophils # 9.3 H (1.3-7.7) k/uL Lymphocytes # 0.4 L (1.0-4.8) k/uL Monocytes # 0.6 (0-1.0) k/uL Eosinophils # 0.8 H (0-0.7) k/uL Basophils # 0.1 (0-0.2) k/uL Sodium 131 L (137-145) mmol/L Potassium 4.2 (3.5-5.1) mmol/L Chloride 97 L (98-107) mmol/L Carbon Dioxide 24 (22-30) mmol/L Anion Gap 10 mmol/L BUN 18 (9-20) mg/dL Creatinine 3.99 H (0.66-1.25) mg/dL Est GFR (CKD-EPI)AfAm 20 (>60 ml/min/1.73 sqM) Est GFR (CKD-EPI)NonAf 17 (>60 ml/min/1.73 sqM) Glucose 100 H (74-99) mg/dL Plasma Lactic Acid Pollo 2.8 H* (0.7-2.0) mmol/L Calcium 8.0 L (8.4-10.2) mg/dL Total Bilirubin 0.7 (0.2-1.3) mg/dL AST 20 (17-59) U/L ALT 25 (4-49) U/L Alkaline Phosphatase 72 (38-126) U/L C-Reactive Protein 145.5 H (<10.0) mg/L Total Protein 5.5 L (6.3-8.2) g/dL Albumin 3.0 L (3.5-5.0) g/dL Vancomycin Trough ug/mL Coronavirus (PCR) (Not Detectd) 12/07/20 12/07/20 Range/Units 15:05 16:13 WBC (3.8-10.6) k/uL RBC (4.30-5.90) m/uL Hgb (13.0-17.5) gm/dL Hct (39.0-53.0) % MCV (80.0-100.0) fL MCH (25.0-35.0) pg MCHC (31.0-37.0) g/dL RDW (11.5-15.5) % Plt Count (150-450) k/uL MPV Neutrophils % % Lymphocytes % % Monocytes % % Eosinophils % % Basophils % % Neutrophils # (1.3-7.7) k/uL Lymphocytes # (1.0-4.8) k/uL Monocytes # (0-1.0) k/uL Eosinophils # (0-0.7) k/uL Basophils # (0-0.2) k/uL Sodium (137-145) mmol/L Potassium (3.5-5.1) mmol/L Chloride (98-107) mmol/L Carbon Dioxide (22-30) mmol/L Anion Gap mmol/L BUN (9-20) mg/dL Creatinine (0.66-1.25) mg/dL Est GFR (CKD-EPI)AfAm (>60 ml/min/1.73 sqM) Est GFR (CKD-EPI)NonAf (>60 ml/min/1.73 sqM) Glucose (74-99) mg/dL Plasma Lactic Acid Pollo (0.7-2.0) mmol/L Calcium (8.4-10.2) mg/dL Total Bilirubin (0.2-1.3) mg/dL AST (17-59) U/L ALT (4-49) U/L Alkaline Phosphatase (38-126) U/L C-Reactive Protein (<10.0) mg/L Total Protein (6.3-8.2) g/dL Albumin (3.5-5.0) g/dL Vancomycin Trough 60.1 H* ug/mL Coronavirus (PCR) Not Detected (Not Detectd) Critical Care Time Critical Care Time: Yes Total Critical Care Time: 35 (Patient arrived febrile, tachycardia, hypotensive, lactic acid came back at 2.8. Patient was given 3 L bolus of fluids. Patient has known osteomyelitis, currently on IV antibiotics. Patient will be admitted for sepsis.) Disposition Clinical Impression: Osteomyelitis, Leukocytosis, Febrile, Acute kidney injury, Sepsis Disposition: ADMITTED IP TO THIS HOSP Condition: Stable Referrals: Turner Gresham DO [Primary Care Provider] - 1-2 days Decision Date: 12/07/20 Decision Time: 16:47
[2020-12-07] MEDS: SODIUM CHLORIDE 0.9% 1,000 ML IV SCH (17:31)
[2020-12-07] MEDS ORDERED: SENNOSIDES-DOCUSATE SODIUM 1 EACH TAB PO PRN (19:33)
[2020-12-07] MEDS ORDERED: oxyCODONE-APAP 10-325MG 1 EACH TAB PO PRN (19:33)
[2020-12-07] MEDS ORDERED: NA PHOS,M-B/NA PHOS,DI-BA 133 ML ENEMA RECTAL PRN (19:33)
[2020-12-07] MEDS ORDERED: LIDOCAINE 5% PATCH TOPICAL PRN (19:33)
[2020-12-07] MEDS ORDERED: ACETAMINOPHEN TAB 500 MG TAB PO PRN (19:33)
[2020-12-07] MEDS ORDERED: bisacodyL 5 MG TABLET.DR PO PRN (19:33)
[2020-12-07] MEDS ORDERED: polyethylene glycoL 3350 17 GM POWD.PACK PO PRN (19:33)
[2020-12-07] MEDS ORDERED: diazePAM 5 MG TAB PO SCH (21:00)
[2020-12-07] MEDS ORDERED: diazePAM 5 MG TAB PO PRN (21:17)
[2020-12-07] MEDS: GABAPENTIN 300 MG CAP PO SCH (21:30)
[2020-12-07] MEDS: methylPREDNISolone SOD SUCCI 125 MG/2 ML VIAL IV SCH (23:29)
--- NOTE | 2020-12-07 23:57 | P.HPIM ---
History of Present Illness H&P Date: 12/07/20 Chief Complaint: Drug reaction Patient is a 45 old male with a known history of hypertension, history of back surgery revision on 11/19/2020 with incision and drainage, and evacuation of epidural mass and phlegmon L4-L5 and decompression laminectomy and placement of antibiotic beads, wound cultures growing MRSA status post PICC line placement on 11/30/2020 with antibiotic course of vancomycin. Patient was discharged from the hospital on 11/30/2020 with IV antibiotics. Patient came to ER with complaints of fever, rash on his back and upper chest since yesterday. Patient is on vancomycin 3 times a day for osteomyelitis of the lumbar spine. Patient has been having intermittent fevers and reddish rash since yesterday. Patient was seen by Dr. Jama in his office about 3 days ago and was told incision has been looking good and no evidence of drainage was noted. Patient is being continued on vancomycin. Otherwise patient denied any worsening back pain. No nausea vomiting or diaphoresis. No headache or dizziness or lightheadedness. Denied any complaints of chest pain or shortness of breath. No nausea vomiting or abdominal pain or diarrhea. Patient presents to ER. Denied any dysuria or hematuria. Denied any decreased urinary output. He was febrile at 103.1 500, tachycardic 114 and also ask was 95% on room air WBC 11.3, hemoglobin 14.4 and platelets 313 Sodium 131 potassium 4.2 chloride 97 BUN 18 and creatinine 3.99 Lactic acid 2.8, vancomycin trough level is 60.1, coronary nondetected Review of Systems Constitutional: Does have fever and no chills. No generalized weakness or weight loss. Abdomen: Patient denied nausea vomiting and diarrhea and abdominal pain. Cardiovascular: Patient denies any chest pain or short of breath no palpitations. Respiratory: patient denied any cough is from production. No shortness of breath Neurologic: Patient denied any numbness or tingling headache. Musculoskeletal: Patient denies any complaints of joint swelling or deformity. Skin: Patient does have a rash on the upper back and chest Psychiatric: Negative Endocrine: No heat or cold intolerance. No recent weight gain. Genitourinary: No dysuria or hematuria. All other 14 point ROS negative except the above Past Medical History Past Medical History: Hypertension Additional Past Medical History / Comment(s): HERNIATED DISCS WITH BACK PAIN RADIATING DOWN RIGHT LEG., Osteomyelitis, spinal fusion. History of Any Multi-Drug Resistant Organisms: MRSA Date of last positivie culture/infection: Nov 2019 MDRO Source:: Spine Past Surgical History: Back Surgery Additional Past Surgical History / Comment(s): PAIN CLINIC PROCEDURES, JEMMA ROTATOR CUFF REPAIR, laminectomy x3 Past Anesthesia/Blood Transfusion Reactions: No Reported Reaction Past Psychological History: No Psychological Hx Reported Smoking Status: Current some day smoker Past Alcohol Use History: Occasional Additional Past Alcohol Use History / Comment(s): SMOKES 1 PPD, SMOKING SINCE 13 YEARS OLD Past Drug Use History: None Reported - Past Family History Mother Family Medical History: No Reported History Father Additional Family Medical History / Comment(s): heart disease Medications and Allergies Home Medications Medication Instructions Recorded Confirmed Type Meloxicam 15 mg PO DAILY PRN 12/07/17 12/07/20 History Atenolol [Tenormin] 100 mg PO DAILY 09/30/20 12/07/20 History Tadalafil [Cialis] 20 mg PO DAILY PRN 09/30/20 12/07/20 History hydroCHLOROthiazide [Hydrodiuril] 25 mg PO DAILY 09/30/20 12/07/20 History Lidocaine 5% Patch [Lidoderm] 1 patch TRANSDERM DAILY PRN 11/16/20 12/07/20 History Na Phos,M-B/Na Phos,Di-Ba [Fleet 133 ml RECTAL DAILY PRN 11/16/20 12/07/20 History Adult] bisacodyL [Dulcolax] 5 mg PO DAILY PRN 11/16/20 12/07/20 History Citalopram Hydrobromide [CeleXA] 20 mg PO DAILY 11/18/20 12/07/20 History Losartan Potassium 100 mg PO DAILY 11/18/20 12/07/20 History Gabapentin 600 mg PO TID 3 Days #90 tab 11/25/20 12/07/20 Rx Polyethylene Glycol 3350 [Miralax] 17 gm PO DAILY PRN #527 gm 11/25/20 12/07/20 Rx oxyCODONE-APAP 10-325MG [Percocet 1 - 2 tab PO Q4HR PRN 7 Days #70 11/25/20 12/07/20 Rx 10-325 mg] tab Acetaminophen Tab [Tylenol] 1,000 mg PO DAILY PRN 11/29/20 12/07/20 History Diazepam [Valium] 10 mg PO BID 12/07/20 12/07/20 History Sennosides/Docusate Sodium [Senna 1 tab PO BID PRN 12/07/20 12/07/20 History Plus 8.6-50 mg Softgel] Allergies Allergy/AdvReac Type Severity Reaction Status Date / Time No Known Allergies Allergy Verified 12/07/20 17:11 Physical Exam Vitals: Vital Signs Temp Pulse Pulse Resp BP BP Pulse Ox 12/07/20 19:53 98.0 F 99 17 100/65 91 L 12/07/20 18:06 114 H 18 98/80 98 12/07/20 17:32 98 18 92/48 95 12/07/20 17:10 112 H 18 91/78 95 12/07/20 16:48 105 H 18 93/70 94 L 12/07/20 16:40 113 H 18 77/44 95 12/07/20 16:09 102.8 F H 113 H 18 89/64 93 L 12/07/20 15:17 103.1 F H 114 H 20 117/77 95 12/07/20 14:13 98.1 F 125 H 20 81/49 99 Intake and Output 12/07/20 12/07/20 12/08/20 14:59 22:59 06:59 Other: Weight 131.542 kg 131.542 kg PHYSICAL EXAMINATION: Patient is lying in the bed comfortably, no acute distress, awake alert and oriented.. HEENT: Normocephalic. Neck is supple. Pupils reactive. Nostrils clear. Oral cavity is moist. Ears reveal no drainage. Neck reveals no JVD, carotid bruits, or thyromegaly. CHEST EXAMINATION: Trachea is central. Symmetrical expansion. Lung valentin clear to auscultation and percussion. CARDIAC: Normal S1, S2 with no gallops. No murmurs ABDOMEN: Soft. Bowel sounds normal. No organomegaly. No abdominal bruits. Extremities: reveal no edema. No clubbing or cyanosis Neurologically awake, alert, oriented x3 with well-coordinated movements. No focal deficits noted Skin: Reddish macular rash on the upper chest and upper back. No drainage or chills noted. Psychiatric: Coperative. Nonsuicidal Musculoskeletal: No joint swelling or deformity. Normal range of motion. Lumbar spine surgical scar intact. No drainage. Results CBC & Chem 7: 12/08/20 06:05 12/08/20 06:05 Labs: Abnormal Lab Results - Last 24 Hours (Table) 12/07/20 12/07/20 12/07/20 Range/Units 15:05 15:05 15:05 WBC 11.3 H (3.8-10.6) k/uL Neutrophils # 9.3 H (1.3-7.7) k/uL Lymphocytes # 0.4 L (1.0-4.8) k/uL Eosinophils # 0.8 H (0-0.7) k/uL Sodium 131 L (137-145) mmol/L Chloride 97 L (98-107) mmol/L Creatinine 3.99 H (0.66-1.25) mg/dL Glucose 100 H (74-99) mg/dL Plasma Lactic Acid Pollo 2.8 H* (0.7-2.0) mmol/L Calcium 8.0 L (8.4-10.2) mg/dL C-Reactive Protein 145.5 H (<10.0) mg/L Total Protein 5.5 L (6.3-8.2) g/dL Albumin 3.0 L (3.5-5.0) g/dL Vancomycin Trough ug/mL 12/07/20 Range/Units 15:05 WBC (3.8-10.6) k/uL Neutrophils # (1.3-7.7) k/uL Lymphocytes # (1.0-4.8) k/uL Eosinophils # (0-0.7) k/uL Sodium (137-145) mmol/L Chloride (98-107) mmol/L Creatinine (0.66-1.25) mg/dL Glucose (74-99) mg/dL Plasma Lactic Acid Pollo (0.7-2.0) mmol/L Calcium (8.4-10.2) mg/dL C-Reactive Protein (<10.0) mg/L Total Protein (6.3-8.2) g/dL Albumin (3.5-5.0) g/dL Vancomycin Trough 60.1 H* ug/mL Thrombosis Risk Factor Assmnt - DVT/VTE Prophylaxis DVT/VTE Prophylaxis: Pharmacologic Prophylaxis ordered - Choose All That Apply Each Factor Represents 1 point: Age 41-60 years, History of prior major surgery (<1month), Obesity (BMI >25), Sepsis (< 1month) Each Risk Factor Represents 5 Points: Major surgery lasting over 3 hours Thrombosis Risk Factor Assessment Total Risk Factor Score: 9 Thrombosis Risk Factor Assessment Level: High Risk Assessment and Plan Assessment: Nonoliguric Acute kidney injury due to ATN secondary to hypotension and recent antibiotic course with vancomycin. Lactic acidosis Hypovolemic hyponatremia Recent L4- S1 fusion surgery and revision and incision and drainage with antibiotic spacer. Wound cultures growing MRSA Hypertension currently not hypertensive Morbid obesity with BMI 41.6 DVT prophylaxis with SCDs Plan: Patient will be continued on IV hydration and monitor electrolytes and lactic acid level. Continue to monitor renal function. Nephrology was consulted. We will obtain urinalysis and urine lites, protein and creatinine level Vancomycin has been discontinued and patient was started on daptomycin. ID is on board. Continued with pain management and follow up closely. Discussed with the patient and his at bedside in detail. Further recommendations based on the clinical course. Time with Patient: Greater than 30
[2020-12-08] MEDS: SODIUM CHLORIDE 0.9% 1,000 ML IV SCH ×3 (02:50→20:20)
[2020-12-08] MEDS: methylPREDNISolone SOD SUCCI 125 MG/2 ML VIAL IV SCH ×3 (05:41→17:25)
[2020-12-08] MEDS: METOPROLOL TARTRATE 25 MG TAB PO SCH (08:18)
[2020-12-08] MEDS: GABAPENTIN 300 MG CAP PO SCH ×3 (08:22→22:13)
[2020-12-08] MEDS: oxyCODONE-APAP 10-325MG 1 EACH TAB PO PRN ×2 (08:22→13:17)
[2020-12-08] MEDS: CITALOPRAM HYDROBROMIDE 20 MG TAB PO SCH (08:22)
--- NOTE | 2020-12-08 09:06 | CONS ---
CONSULTATION DATE OF SERVICE: 12/07/2020 REASON FOR CONSULTATION: Fever and rash. HISTORY OF PRESENT ILLNESS: The patient is a 45-year-old male who was recently admitted to this facility. The patient was diagnosed with lumbar surgical site infection with an abscess in this patient who is status post lumbar laminectomy L4 to S1 on 10/01/2020. The patient did have surgical drainage of this abscess. Culture did grow Staph epi resistant to oxacillin, sensitive to vancomycin. The patient's blood cultures were negative. The patient did get a PICC line and subsequently discharged home on 11/26/2020. The patient's girlfriend did call me this morning concerning for the patient developing a generalized rash and the patient has been running a fever for the last 24 hours. The patient has been advised to present to the ER. On arrival to the ER, the patient did have a fever of 103 degrees Fahrenheit. The patient did have mild tachycardia. Subsequently, the patient was admitted to the hospital for possible drug rash and adjustment of antibiotic therapy. The patient denies having any headache or URI symptoms. Denies having any chest pain, shortness of breath or cough. No abdominal pain. The patient complaining of itching to the rash that has been mostly involving most of his body. However, the patient denies having any sores in his mouth or any mucous membrane lesion. The patient mentioned that his back pain has been improving, has decreased in intensity, currently 3 to 4/10 and no radiation and no significant drainage. The patient was noticed to have a white count of 11.3, and also have evidence of renal failure with creatinine of 3.99 and Vancomycin trough was 60.1. Lactic acid 2.8. [place] PCR was negative. REVIEW OF SYSTEMS: Positive points have been mentioned in HPI. Rest of the systems are negative. PAST MEDICAL HISTORY: Significant for chronic back pain from herniated discs, hypertension, lumbar spine abscess. PAST SURGICAL HISTORY: Bilateral rotator cuff repair, laminectomy and drainage of the lumbar abscess. SOCIAL HISTORY: Current everyday smoker. Occasionally drinks. No drug use. FAMILY HISTORY: No pertinent findings noted. ALLERGIES: No known drug allergies. MEDICATIONS: Currently include the patient was on vancomycin which has been discontinued. Patient currently on daptomycin , Dulcolax, Celexa, Tylenol, Neurontin, Lidoderm, Lopressor, Narcan, Zofran, Percocet, MiraLAX, Senokot, Fleet enema and IV fluid. PHYSICAL EXAMINATION: VITAL SIGNS: Blood pressure 98/80 with a pulse of 140, temperature of 103, he is 98% on room air. GENERAL DESCRIPTION: The patient is a middle-aged male up in the chair in no distress. No tachypnea or accessory muscles of respiration use. HEENT: Examination shows no pallor or scleral icterus. Oral mucous membrane is dry. No erythema or thrush. NECK: Trachea central, no thyromegaly. LUNGS: Unlabored breathing, clear to auscultation with crackles. HEART: S1, S2. Regular rate and rhythm. ABDOMEN: Soft, no tenderness. No guarding or rigidity. EXTREMITIES: No edema of the feet. SKIN: shows maculopapular rash. No blisters. No mucous membrane lesions. LUMBAR SPINE: Examination of the lumbar spine did have Steri-Strips on. Minimal drainage was noticed. No redness. NEUROLOGICAL: Patient is awake, alert, oriented times three. Mood and affect normal. LABS: Hemoglobin is 14.4, white count 11.3, BUN of 15, creatinine 3.99. Lactic acid 2.2, bilirubin is 1.6. Blood culture has been obtained; currently pending. DIAGNOSTIC IMPRESSION AND PLAN: 1. Patient admitted to the hospital with fever, source is likely generalized maculopapular rash and more likely related to vancomycin which will be discontinued. 2. Patient with lumbar abscess status post laminectomy. Culture positive for Staph epi, oxacillin resistant. 3. Patient with renal insufficiency, likely secondary to Vancomycin which has been discontinued. PLAN: 1. We will start the patient on Solu-Medrol for generalized maculopapular rash. 2. The patient has been switched over to daptomycin 6 mg/kg. 3. We will follow on clinical condition and culture to further adjust medication if needed. Thank you for this consultation. Will follow this patient along with you. MMODL / IJN: [id number] / PRINCE
[2020-12-08 09:11] LABS: Basophils # (A) 0.02 X 10*3/uL (0.00-0.10); Basophils % (A) 0.2 %; Eosinophils # (A) 0.11 X 10*3/uL (0.04-0.35); HCT 37.9 % (39.6-50.0); HGB 12.2 g/dL (13.0-17.0); Lymphocytes # (A) 0.28 X 10*3/uL (0.90-5.00); Lymphocytes % (A) 2.4 %; MCH 29.6 pg (27.0-32.0); MCHC 32.2 g/dL (32.0-37.0); Mean Platelet Volume 10.7 fL (9.5-12.2); Monocytes # (A) 0.36 X 10*3/uL (0.20-1.00); Monocytes % (A) 3.1 %; Neutrophils # (A) 10.55 X 10*3/uL (1.80-7.70); Neutrophils % (A) 92.3 %; Platelet Count 304 X 10*3/uL (140-440); RBC 4.12 X 10*6/uL (4.40-5.60); RDW 14.3 % (11.5-14.5); WBC 11.44 X 10*3/uL (4.50-10.00)
[2020-12-08 09:36] LABS: Anion Gap 9.4 mmol/L (4.00-12.00); BUN/Creat Ratio 5.18 Ratio (12.00-20.00); Calcium 7.4 mg/dL (8.7-10.3); Carbon Dioxide 21.6 mmol/L (21.6-31.8); Non-African American GFR(CKD) 11.2 (60.0-200.0); Potassium 4.8 mmol/L (3.5-5.5)
[2020-12-08 11:47] LABS: Amorphous Sediment,Urine Few /hpf; Appearance,Urine Turbid (Clear); Bacteria,Urine Moderate /hpf; Bilirubin,Urine Negative (Negative); Blood,Urine Moderate (Negative); Color,Urine Yellow; Glucose,Urine (UA) 1+ (Negative); Ketones,Urine Negative (Negative); Leukocyte Esterase,Urine Trace (Negative); Mucus,Urine Few /hpf; Nitrite,Urine Negative (Negative); Protein,Urine 2+ (Negative); RBC,Urine 26 /hpf (0-5); Specific Gravity,Urine 1.026 (1.001-1.035); Squamous Epithelial Cell,Urine 3 /hpf (0-4); WBC,Urine 22 /hpf (0-5)
[2020-12-08 12:34] LABS: Creatinine,Urine Random 366.2 mg/dL; Protein/Creatinine Ratio,Urine 0.191
--- NOTE | 2020-12-08 13:54 | CONS ---
CONSULTATION REASON FOR CONSULT: Renal failure. HISTORY OF PRESENT ILLNESS: The patient is a 45-year-old male who was admitted to the hospital with complaints of weakness, not feeling well and having had a rash all over his body with itching. The patient is status post recent back surgery on 11/19/2020 with I and D and evacuation of epidural mass and phlegmon. He has had underlying infection with MRSA and was maintained on vancomycin. The patient was discharged from the hospital on 11/30/2020 with IV vancomycin. He denied any significant urinary symptoms. The patient was noted to have a serum creatinine of 3.9 mg/dL yesterday and today it is up to 5.6. Previous creatinine was 0.6 on 11/29/2020. Vancomycin level was 60.1 on 12/07/2020. Blood pressure is on the lower side with systolic in the 80s and 100 mm of Hg. Patient states that he has been voiding. He is currently switched over to daptomycin and maintained on IV fluids at 100 mL an hour. Patient also received Toradol yesterday IV and he had been on meloxicam at home prior to admission. PAST MEDICAL HISTORY: Significant for recent back surgery, herniated discs, osteomyelitis, history of spinal fusion, history of MRSA infection. PAST SURGICAL HISTORY: Bilateral rotator cuff repair, laminectomy. SOCIAL HISTORY: Positive for smoking. No history of drug abuse or alcohol abuse. MEDICATIONS PRIOR TO ADMISSION: Included meloxicam, Tenormin, losartan, Celexa, hydrochlorothiazide, Neutra-Phos, gabapentin, Percocet, Valium, Tylenol. ALLERGIES: None. REVIEW OF SYSTEMS: As per HPI. Other systems negative. EXAMINATION: Patient is comfortable, awake. He is not in any acute distress. Blood pressure 84/65 earlier this morning. Later on it was 102/53, heart rate 64 per minute, he is afebrile. Examination of the heart S1, S2. Examination of the lungs, bilateral breath sounds are heard. Abdomen is soft, nontender, obese. Examination lower extremities shows no significant edema. Chronic skin changes noted. [employer] exam grossly intact. Incision site in the back looks clean. LABS: Show sodium 133, potassium 4.8, chloride 102, BUN 29, serum creatinine 5.6, hemoglobin of 12.2 g/dL, white cell count 11.4. UA shows 2+ protein, 1+ glucose, moderate blood, WBCs 22. ASSESSMENT: 1. Acute kidney injury secondary to vancomycin toxicity and exacerbated by use of NSAIDs as well as hypotension, currently nonoliguric. However, renal function has worsened significantly over the last two days. Given the significant rise in creatinine, patient may need renal replacement therapy. Continue to avoid all nephrotoxic agents. Continue with IV fluids for now and avoid hypotension. 2. Staphylococcus epidermidis in wound culture, tissue culture on 11/19/2020 from the back. Repeat blood culture is negative thus far. 3. History of hypertension. 4. Lumbar abscess status post laminectomy. The culture was positive for oxacillin resistant Staph epi. PLAN: Continue off all nephrotoxic agents including NSAIDs. Avoid hypotension. Repeat labs in a.m. May continue daptomycin. MMODL / IJN: [id number] /
--- NOTE | 2020-12-08 18:29 | PN ---
PROGRESS NOTE DATE OF SERVICE: 12/08/2020 REASON FOR FOLLOWUP: 1. Drug rash. 2. Lumbar spinal abscess. INTERVAL HISTORY: Patient overall fever has resolved. The patient's rash minimally decreased intensity. Complaining of itching. No difficulty breathing or mucus accumulation. No abdominal pain. No worsening pain to the lumbar spine area. PHYSICAL EXAMINATION: Blood pressure 110/78 with a pulse of 111, temperature 97.8. He is 91% on room air. General description: The patient is a middle-aged male lying in bed in no distress. Respiratory system: Unlabored breathing, clear to auscultation anteriorly. Heart S1, S2. Regular rate and rhythm. ABDOMEN: Soft, no tenderness. LABS: Hemoglobin is 12.4 with white count of 11.4, BUN of 29, creatinine 5.6. DIAGNOSTIC IMPRESSION AND PLAN: 1. Patient admitted to the hospital with fever and rash more likely related to vancomycin that has been discontinued, on steroids continue for short course. 2. Patient with lumbosacral spine abscess, covered with daptomycin. Dose will be adjusted to 48 hours in view of his kidney function. 3. Continue supportive care. MMODL / IJN: [id number] /
--- NOTE | 2020-12-08 23:23 | P.PN ---
Subjective Progress Note Date: 12/08/20 Principal diagnosis: JENNIFER Vancomycin allergic reaction Patient is a 45 old male with a known history of hypertension, history of back surgery revision on 11/19/2020 with incision and drainage, and evacuation of epidural mass and phlegmon L4-L5 and decompression laminectomy and placement of antibiotic beads, wound cultures growing MRSA status post PICC line placement on 11/30/2020 with antibiotic course of vancomycin. Patient was discharged from the hospital on 11/30/2020 with IV antibiotics. Patient came to ER with complaints of fever, rash on his back and upper chest since yesterday. Patient is on vancomycin 3 times a day for osteomyelitis of the lumbar spine. Patient has been having intermittent fevers and reddish rash since yesterday. Patient was seen by Dr. Jama in his office about 3 days ago and was told incision has been looking good and no evidence of drainage was noted. Patient is being continued on vancomycin. Otherwise patient denied any worsening back pain. No nausea vomiting or diaphoresis. No headache or dizziness or lightheadedness. D enied any complaints of chest pain or shortness of breath. No nausea vomiting or abdominal pain or diarrhea. Patient presents to ER. Denied any dysuria or hematuria. Denied any decreased urinary output. He was febrile at 103.1 500, tachycardic 114 and also ask was 95% on room air WBC 11.3, hemoglobin 14.4 and platelets 313 Sodium 131 potassium 4.2 chloride 97 BUN 18 and creatinine 3.99 Lactic acid 2.8, vancomycin trough level is 60.1, coronary nondetected 12/08/2020 Patient is currently lying in the bed. Patient states that he is feels little tired today. Did have involvement. Nonoliguric. Blood pressures slightly improved with SBP above 100. Otherwise renal function is worsening with creatinine level 5.6 today. Nephrology is following and is planning for renal replacement therapy if it does not get better. Continue with IV hydration for now. Otherwise patient is on antibiotics in the form of daptomycin for recent osteomyelitis of the spine. ID is on board. Patient is being continued IV steroids due to allergic reaction to vancomycin. Patient has been afebrile. Active Medications Generic Name Dose Route Start Last Admin Trade Name Freq PRN Reason Stop Dose Admin Acetaminophen 650 mg 12/07/20 16:47 12/08/20 22:18 Acetaminophen Tab 325 Mg Tab PO 650 mg Q6HR PRN Administration Mild Pain or Fever > 100.5 Bisacodyl 5 mg 12/07/20 19:33 Bisacodyl 5 Mg Tablet.Dr PO DAILY PRN Constipation Citalopram Hydrobromide 20 mg 12/08/20 09:00 12/08/20 08:22 Citalopram Hydrobromide 20 Mg Tab PO 20 mg DAILY ZECHARIAH Administration Diazepam 10 mg 12/07/20 21:17 12/07/20 21:30 Diazepam 5 Mg Tab PO 10 mg BID PRN Administration Mild Spasms Gabapentin 600 mg 12/07/20 22:00 12/08/20 22:13 Gabapentin 300 Mg Cap PO 600 mg TID ZECHARIAH Administration Sodium Chloride 1,000 mls @ 100 mls/hr 12/07/20 17:00 12/08/20 20:20 Saline 0.9% IV Not Given .Q10H ZECHARIAH Daptomycin 800 mg/ Sodium 50 mls @ 100 mls/hr 12/09/20 20:00 Chloride IVPB Q48H [facility] Protocol Lidocaine 1 patch 12/07/20 19:33 Lidocaine 5% Patch TOPICAL DAILY PRN Pain Methylprednisolone Sodium Succinate 60 mg 12/08/20 00:00 12/08/20 17:25 Methylprednisolone Sod Succi 125 Mg/2 Ml Vial IV 60 mg Q6HR ZECHARIAH Administration Metoprolol Tartrate 25 mg 12/08/20 09:00 12/08/20 08:18 Metoprolol Tartrate 25 Mg Tab PO Not Given DAILY ZECHARIAH Naloxone HCl 0.2 mg 12/07/20 16:47 Naloxone 0.4 Mg/Ml 1 Ml Vial IV Q2M PRN Opioid Reversal Ondansetron HCl 4 mg 12/07/20 16:47 Ondansetron 4 Mg/2 Ml Vial IVP Q8HR PRN Nausea And Vomiting Oxycodone/Acetaminophen 1 each 12/07/20 16:34 12/08/20 13:17 Oxycodone-Apap 10-325mg 1 Each Tab PO 1 each Q4H PRN Administration Pain Polyethylene Glycol 17 gm 12/07/20 19:33 Polyethylene Glycol 3350 17 Gm Powd.Pack PO DAILY PRN Constipation Senna/Docusate Sodium 1 each 12/07/20 19:33 Sennosides-Docusate Sodium 1 Each Tab PO BID PRN Constipation Sodium Biphosphate/Sodium Phosphate 133 ml 12/07/20 19:33 Na Phos,M-B/Na Phos,Di-Ba 133 Ml Enema RECTAL DAILY PRN Constipation Objective - Vital Signs Vital signs: Vital Signs Temp 97.9 F 12/08/20 07:48 Pulse 64 12/08/20 07:48 Resp 16 12/08/20 07:48 BP 102/53 12/08/20 07:48 Pulse Ox 93 L 12/08/20 07:48 Intake & Output 12/07/20 12/08/20 12/08/20 18:59 06:59 18:59 Weight 131.542 kg Other: # Voids 2 - Exam PHYSICAL EXAMINATION: Patient is lying in the bed comfortably, no acute distress, awake alert and oriented.. HEENT: Normocephalic. Neck is supple. Pupils reactive. Nostrils clear. Oral cavity is moist. Ears reveal no drainage. Neck reveals no JVD, carotid bruits, or thyromegaly. CHEST EXAMINATION: Trachea is central. Symmetrical expansion. Lung valentin clear to auscultation and percussion. CARDIAC: Normal S1, S2 with no gallops. No murmurs ABDOMEN: Soft. Bowel sounds normal. No organomegaly. No abdominal bruits. Extremities: reveal no edema. No clubbing or cyanosis Neurologically awake, alert, oriented x3 with well-coordinated movements. No focal deficits noted Skin: Reddish macular rash on the upper chest and upper back. No drainage or chills noted. Psychiatric: Coperative. Nonsuicidal Musculoskeletal: No joint swelling or deformity. Normal range of motion. Lumbar spine surgical scar intact. No drainage. - Labs CBC & Chem 7: 12/08/20 06:05 12/08/20 06:05 Labs: Abnormal Lab Results - Last 24 Hours (Table) 12/07/20 12/07/20 12/07/20 Range/Units 15:05 15:05 15:05 WBC 11.3 H (3.8-10.6) k/uL RBC (4.40-5.60) X 10*6/uL Hgb (13.0-17.0) g/dL Hct (39.6-50.0) % Immature Gran # (0.00-0.04) X 10*3/uL Neutrophils # 9.3 H (1.3-7.7) k/uL Lymphocytes # 0.4 L (1.0-4.8) k/uL Eosinophils # 0.8 H (0-0.7) k/uL Sodium 131 L (137-145) mmol/L Chloride 97 L (98-107) mmol/L BUN (9.0-27.0) mg/dL Creatinine 3.99 H (0.66-1.25) mg/dL Est GFR (CKD-EPI)AfAm (60.0-200.0) Est GFR (CKD-EPI)NonAf (60.0-200.0) BUN/Creatinine Ratio (12.00-20.00) Ratio Glucose 100 H (74-99) mg/dL Plasma Lactic Acid Pollo 2.8 H* (0.7-2.0) mmol/L Calcium 8.0 L (8.4-10.2) mg/dL C-Reactive Protein 145.5 H (<10.0) mg/L Total Protein 5.5 L (6.3-8.2) g/dL Albumin 3.0 L (3.5-5.0) g/dL Urine Protein (Negative) Urine Glucose (UA) (Negative) Urine Blood (Negative) Ur Leukocyte Esterase (Negative) Urine RBC (0-5) /hpf Urine WBC (0-5) /hpf Amorphous Sediment (None) /hpf Urine Bacteria (None) /hpf Urine Mucus (None) /hpf Vancomycin Trough ug/mL 12/07/20 12/08/20 12/08/20 Range/Units 15:05 06:05 06:05 WBC 11.44 H (3.8-10.6) k/uL RBC 4.12 L (4.40-5.60) X 10*6/uL Hgb 12.2 L (13.0-17.0) g/dL Hct 37.9 L (39.6-50.0) % Immature Gran # 0.12 H (0.00-0.04) X 10*3/uL Neutrophils # 10.55 H (1.3-7.7) k/uL Lymphocytes # 0.28 L (1.0-4.8) k/uL Eosinophils # (0-0.7) k/uL Sodium 133 L (137-145) mmol/L Chloride (98-107) mmol/L BUN 29.0 H (9.0-27.0) mg/dL Creatinine 5.6 H (0.66-1.25) mg/dL Est GFR (CKD-EPI)AfAm 13.0 L (60.0-200.0) Est GFR (CKD-EPI)NonAf 11.2 L (60.0-200.0) BUN/Creatinine Ratio 5.18 L (12.00-20.00) Ratio Glucose 175 H (74-99) mg/dL Plasma Lactic Acid Pollo (0.7-2.0) mmol/L Calcium 7.4 L (8.4-10.2) mg/dL C-Reactive Protein (<10.0) mg/L Total Protein (6.3-8.2) g/dL Albumin (3.5-5.0) g/dL Urine Protein (Negative) Urine Glucose (UA) (Negative) Urine Blood (Negative) Ur Leukocyte Esterase (Negative) Urine RBC (0-5) /hpf Urine WBC (0-5) /hpf Amorphous Sediment (None) /hpf Urine Bacteria (None) /hpf Urine Mucus (None) /hpf Vancomycin Trough 60.1 H* ug/mL 12/08/20 Range/Units 10:40 WBC (3.8-10.6) k/uL RBC (4.40-5.60) X 10*6/uL Hgb (13.0-17.0) g/dL Hct (39.6-50.0) % Immature Gran # (0.00-0.04) X 10*3/uL Neutrophils # (1.3-7.7) k/uL Lymphocytes # (1.0-4.8) k/uL Eosinophils # (0-0.7) k/uL Sodium (137-145) mmol/L Chloride (98-107) mmol/L BUN (9.0-27.0) mg/dL Creatinine (0.66-1.25) mg/dL Est GFR (CKD-EPI)AfAm (60.0-200.0) Est GFR (CKD-EPI)NonAf (60.0-200.0) BUN/Creatinine Ratio (12.00-20.00) Ratio Glucose (74-99) mg/dL Plasma Lactic Acid Pollo (0.7-2.0) mmol/L Calcium (8.4-10.2) mg/dL C-Reactive Protein (<10.0) mg/L Total Protein (6.3-8.2) g/dL Albumin (3.5-5.0) g/dL Urine Protein 2+ H (Negative) Urine Glucose (UA) 1+ H (Negative) Urine Blood Moderate H (Negative) Ur Leukocyte Esterase Trace H (Negative) Urine RBC 26 H (0-5) /hpf Urine WBC 22 H (0-5) /hpf Amorphous Sediment Few H (None) /hpf Urine Bacteria Moderate H (None) /hpf Urine Mucus Few H (None) /hpf Vancomycin Trough ug/mL Assessment and Plan Assessment: Nonoliguric Acute kidney injury due to ATN secondary to hypotension and toxicity to vancomycin. Lactic acidosis Hypovolemic hyponatremia Recent L4- S1 fusion surgery and revision and incision and drainage with an tibiotic spacer. Wound cultures growing MRSA Hypertension currently not hypertensive Morbid obesity with BMI 41.6 DVT prophylaxis with SCDs Plan: Patient will be continued on IV hydration and monitor electrolytes and lactic acid level imprved. Continue to monitor renal function. Nephrology is on board. We will obtain urinalysis and urine lites, protein and creatinine level Vancomycin has been discontinued and patient was started on daptomycin. ID is on board. Continued with pain management and follow up closely. Discussed with the patient and his at bedside in detail. Further re commendations based on the clinical course. Time with Patient: Greater than 30
[2020-12-09] MEDS: methylPREDNISolone SOD SUCCI 125 MG/2 ML VIAL IV SCH ×5 (00:23→22:29)
[2020-12-09] MEDS: SODIUM CHLORIDE 0.9% 1,000 ML IV SCH ×2 (03:30→17:11)
[2020-12-09] MEDS: oxyCODONE-APAP 10-325MG 1 EACH TAB PO PRN (04:12)
[2020-12-09] MEDS: GABAPENTIN 300 MG CAP PO SCH (07:41)
[2020-12-09] MEDS: CITALOPRAM HYDROBROMIDE 20 MG TAB PO SCH (07:42)
[2020-12-09] MEDS: METOPROLOL TARTRATE 25 MG TAB PO SCH (07:42)
[2020-12-09] MEDS ORDERED: diphenhydrAMINE 25 MG CAP PO PRN (08:25)
[2020-12-09 09:17] LABS: Basophils # (A) 0.02 X 10*3/uL (0.00-0.10); Basophils % (A) 0.1 %; Eosinophils # (A) 0.05 X 10*3/uL (0.04-0.35); Eosinophils % (A) 0.3 %; HCT 35.3 % (39.6-50.0); HGB 11.3 g/dL (13.0-17.0); Lymphocytes # (A) 0.58 X 10*3/uL (0.90-5.00); Lymphocytes % (A) 3.1 %; MCH 29.4 pg (27.0-32.0); MCV 91.7 fL (80.0-97.0); Mean Platelet Volume 10.8 fL (9.5-12.2); Monocytes # (A) 0.95 X 10*3/uL (0.20-1.00); Monocytes % (A) 5.1 %; Neutrophils # (A) 16.63 X 10*3/uL (1.80-7.70); Neutrophils % (A) 89.9 %; Platelet Count 299 X 10*3/uL (140-440); RBC 3.85 X 10*6/uL (4.40-5.60); RDW 14.2 % (11.5-14.5); WBC 18.51 X 10*3/uL (4.50-10.00)
[2020-12-09 10:06] LABS: African American GFR (CKD) 8.7 (60.0-200.0); Anion Gap 14.7 mmol/L (4.00-12.00); BUN/Creat Ratio 6.92 Ratio (12.00-20.00); Calcium 7.4 mg/dL (8.7-10.3); Carbon Dioxide 20.3 mmol/L (21.6-31.8); Non-African American GFR(CKD) 7.5 (60.0-200.0); Potassium 5.5 mmol/L (3.5-5.5)
--- NOTE | 2020-12-09 10:37 | P.PN ---
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 Patient states that when she had GI bleed she had similar symptoms and presents to ER for evaluation. Patient states that she was having some dark-colored stools during the last 2 days which she attributes to her food intake. Patient also complaining of shortness of breath with exertion. No chest pain. On and off leg swelling currently denied any leg swelling. No fever no chills. No cough or sputum production. No recent illnesses or infections. No recent travel. Chest x-ray showed no evidence of acute pulmonary disease EKG showed normal sinus rhythm with left atrial enlargement. Patient is has history of heart murmur for which patient was seen by cardiology in the past. Laboratory showed hemoglobin level was 6.5 on admission and FOBT positive. BUN 14 creatinine 0.81 potassium 4.5 sodium 136 and blood sugar is 214 and magnesium 1.1 and calcium 10.4 coronavirus PCR is not detected. 12/07/2020 Patient is currently sitting in a chair. Awake alert oriented x3. Patient was started on capsule endoscopy study. Denied any complaints abdominal pain. Hemoglobin is at 7.0 today. No headache or dizziness or lightheadedness. GI is following. Continue insulin sliding scale and blood sugar control. 12/08/2020 Patient is currently resting in the bed comfortably. Denied any complaints of nausea vomiting or abdominal pain or diarrhea. Patient did have brown bowel movement today. Hemoglobin level is 7.1 today. Report pending for capsule endoscopy. GI is on board. Patient was started on oral diet and adjust insulin dose. subjective 12/09/20 this is a pleasant 45 years old male who presents because of fever and generalized macular papular rash , thought to be secondary to vancomycin toxicity , patient was on vancomycin for lumbar abscess , he is a status post laminectomy secondary to staph epidermidis resistant to oxacillin. Also with acute kidney injury and creatinine is 7.8 today with nephrology on the case and possible hemodialysis patient today he has some sleep breathing difficulty , he states that he has s leep apnea but not using BiPAP/CPAP at home. he denies previous diagnosis of COPD however his cutting back his smoking from 1.5 down to 0.5 pack per day , however patient is already on Solu-Medrol 60 mg 4 times a day for his rash He is a little short of breath today. No chest pain or coughing. No abdominal pain. He thinks his rash is the same but it itching improved , although is not resolved completely. Also he is on daptomycin and gentle hydration with normal saline at 50 mL per hour ID team and tearoom hostess teams the case Review of systems CONSTITUTIONAL: No fever, no malaise, no fatigue. HEENT: No recent visual problems or hearing problems. Denied any sore throat. CARDIOVASCULAR: No orthopnea, PND, no palpitations, no syncope. PULMONARY: No shortness of breath, no cough, no hemoptysis. GASTROINTESTINAL: No diarrhea, no nausea, no vomiting, no abdominal pain. Normoactive bowel sounds. NEUROLOGICAL: No headaches, no weakness, no numbness. HEMATOLOGICAL: Denies any bleeding or petechiae. Active Medications Generic Name Dose Route Start Last Admin Trade Name Freq PRN Reason Stop Dose Admin Acetaminophen 650 mg 12/07/20 16:47 12/08/20 22:18 Acetaminophen Tab 325 Mg Tab PO 650 mg Q6HR PRN Administration Mild Pain or Fever > 100.5 Bisacodyl 5 mg 12/07/20 19:33 Bisacodyl 5 Mg Tablet.Dr PO DAILY PRN Constipation Citalopram Hydrobromide 20 mg 12/08/20 09:00 12/09/20 07:42 Citalopram Hydrobromide 20 Mg Tab PO 20 mg DAILY ZECHARIAH Administration Diazepam 10 mg 12/07/20 21:17 12/07/20 21:30 Diazepam 5 Mg Tab PO 10 mg BID PRN Administration Mild Spasms Diphenhydramine HCl 25 mg 12/09/20 08:25 Diphenhydramine 25 Mg Cap PO BID PRN Itching Gabapentin 600 mg 12/07/20 22:00 12/09/20 07:41 Gabapentin 300 Mg Cap PO 600 mg TID ZECHARIAH Administration Sodium Chloride 1,000 mls @ 100 mls/hr 12/07/20 17:00 12/09/20 03:30 Saline 0.9% IV 100 mls/hr .Q10H ZECHARIAH Administration Daptomycin 800 mg/ Sodium 50 mls @ 100 mls/hr 12/09/20 20:00 Chloride IVPB Q48H [facility] Protocol Lidocaine 1 patch 12/07/20 19:33 Lidocaine 5% Patch TOPICAL DAILY PRN Pain Methylprednisolone Sodium Succinate 60 mg 12/08/20 00:00 12/09/20 05:32 Methylprednisolone Sod Succi 125 Mg/2 Ml Vial IV 60 mg Q6HR ZECHARIAH Administration Metoprolol Tartrate 25 mg 12/08/20 09:00 12/09/20 07:42 Metoprolol Tartrate 25 Mg Tab PO 25 mg DAILY ZECHARIAH Administration Naloxone HCl 0.2 mg 12/07/20 16:47 Naloxone 0.4 Mg/Ml 1 Ml Vial IV Q2M PRN Opioid Reversal Ondansetron HCl 4 mg 12/07/20 16:47 Ondansetron 4 Mg/2 Ml Vial IVP Q8HR PRN Nausea And Vomiting Oxycodone/Acetaminophen 1 each 12/07/20 16:34 12/09/20 04:12 Oxycodone-Apap 10-325mg 1 Each Tab PO 1 each Q4H PRN Administration Pain Polyethylene Glycol 17 gm 12/07/20 19:33 Polyethylene Glycol 3350 17 Gm Powd.Pack PO DAILY PRN Constipation Senna/Docusate Sodium 1 each 12/07/20 19:33 Sennosides-Docusate Sodium 1 Each Tab PO BID PRN Constipation Sodium Biphosphate/Sodium Phosphate 133 ml 12/07/20 19:33 Na Phos,M-B/Na Phos,Di-Ba 133 Ml Enema RECTAL DAILY PRN Constipation Objective - Vital Signs Vital signs: Vital Signs Temp 98.6 F 12/09/20 07:40 Pulse 102 H 12/09/20 07:40 Resp 20 12/09/20 07:40 BP 111/76 12/09/20 07:40 Pulse Ox 92 L 12/09/20 07:40 Intake & Output 12/08/20 12/09/20 12/09/20 18:59 06:59 18:59 Intake Total 800 600 Balance 800 600 Intake: Oral 800 600 Other: # Voids 2 - Exam -GENERAL: The patient is alert and oriented x3, not in any acute distress. Obese HEENT: Pupils are round and equally reacting to light. EOMI. No scleral icterus. No conjunctival pallor. Normocephalic, atraumatic. No pharyngeal erythema. No thyromegaly. CARDIOVASCULAR: S1 and S2 present. No murmurs, rubs, or gallops. PULMONARY: Chest is clear to auscultation, no wheezing or crackles. ABDOMEN: Soft, nontender, nondistended, normoactive bowel sounds. No palpable organomegaly. -MUSCULOSKELETAL: No joint swelling or deformity. Midline lower back scar, healed with no drainage or open wound EXTREMITIES: No cyanosis, clubbing, or pedal edema. NEUROLOGICAL: Gross neurological examination did not reveal any focal deficits. -SKIN: no petechiae. He has extensive rash, maculopapular previous more confluent on the chest, back and extending into most of the abdomen as well as extremities. No mouth ulcer -Genitalia: Patient refused - Labs CBC & Chem 7: 12/09/20 05:34 12/09/20 05:34 Labs: Abnormal Lab Results - Last 24 Hours (Table) 12/08/20 12/09/20 12/09/20 Range/Units 10:40 05:34 05:34 WBC 18.51 H (4.50-10.00) X 10*3/uL RBC 3.85 L (4.40-5.60) X 10*6/uL Hgb 11.3 L (13.0-17.0) g/dL Hct 35.3 L (39.6-50.0) % Immature Gran # 0.28 H (0.00-0.04) X 10*3/uL Neutrophils # 16.63 H (1.80-7.70) X 10*3/uL Lymphocytes # 0.58 L (0.90-5.00) X 10*3/uL Sodium 133 L (135-145) mmol/L Carbon Dioxide 20.3 L (21.6-31.8) mmol/L Anion Gap 14.70 H (4.00-12.00) mmol/L BUN 54.0 H (9.0-27.0) mg/dL Creatinine 7.8 H* (0.6-1.5) mg/dL Est GFR (CKD-EPI)AfAm 8.7 L (60.0-200.0) Est GFR (CKD-EPI)NonAf 7.5 L (60.0-200.0) BUN/Creatinine Ratio 6.92 L (12.00-20.00) Ratio Glucose 161 H (70-110) mg/dL Calcium 7.4 L (8.7-10.3) mg/dL Urine Protein 2+ H (Negative) Urine Glucose (UA) 1+ H (Negative) Urine Blood Moderate H (Negative) Ur Leukocyte Esterase Trace H (Negative) Urine RBC 26 H (0-5) /hpf Urine WBC 22 H (0-5) /hpf Amorphous Sediment Few H (None) /hpf Urine Bacteria Moderate H (None) /hpf Urine Mucus Few H (None) /hpf Microbiology - Last 24 Hours (Table) 12/08/20 10:40 Urine Culture - Preliminary Urine,Voided 12/07/20 16:02 Blood Culture - Preliminary Blood No Growth after 24 hours Assessment and Plan Assessment: Nonoliguric Acute kidney injury due to ATN secondary to hypotension and toxicity to vancomycin. Ongoing and recent lumbar abscess status post laminectomy secondary to staph epidermidis resistant to oxacillin Maculopapular rash Lactic acidosis, resolved Mild Hypovolemic hyponatremia Recent L4- S1 fusion surgery and revision and incision and drainage with antibiotic spacer. Hypertension currently not hypertensive Morbid obesity with BMI 41.6 Possible history of obstructive sleep apnea as per patient, not on CPAP and BiPAP Plan: This is a pleasant 45 years old male who presents with vancomycin toxicity, lumbar abscess, ACI rash. Continue with daptomycin as per ID team recommendation. Continue with Solu-Medrol and consult wind tunnel engineer. Continue with gentle hydration, currently normal saline at 50 mL/h with the tearoom hostess on the case, patient may need hemodialysis as per tearoom hostess recommendation Patient was instructed to follow up as an outpatient with textile cutting machine operator for sleep studies Continued with pain management and follow up closely. Labs and medication were reviewed.. Continue same treatment. Continue with symptomatic treatment. Resume home medication. Monitor lytes and vitals. DVT and GI prophylaxis. Further recommendationsas per clinical course of the patient DVT prophylaxis: Subcutaneous heparin GI Prophylaxis: Pepcid PT/OT: Pending Prognosis is guarded
[2020-12-09 11:55] LABS: Glucose,Whole Blood 255 mg/dL (75-99)
[2020-12-09] MEDS: INSULIN ASPART (NovoLOG) 100 UNIT/ML VIAL SQ SCH ×3 (12:22→22:29)
[2020-12-09] MEDS: HEPARIN SODIUM,PORCINE 5,000 UNIT/ML 1 ML VIAL SQ SCH ×2 (12:22→22:28)
[2020-12-09 12:35] LABS: Glucose,Whole Blood 247 mg/dL (75-99)
[2020-12-09] MEDS ORDERED: IPRATROPIUM-ALBUTEROL 3 ML NEB INHALATION STA (12:38)
--- NOTE | 2020-12-09 12:53 | P.PN ---
Progress Note - Text Progress Note Date: 12/09/20 I responded to a rapid response team called by nursing staff. Patient was found to be significantly hypoxic with O2 sats in the 50% while he was sleeping. His lips appeared cyanotic according to nursing staff. At the time of my arrival to the room, patient was awake and alert. He was responding to my questions appropriately. His O2 sats was 97% on a Ventimask. On exam patient did not have any stridor. Chest auscultation showed diffuse rales and rhonchi all over the chest. Apparently patient was admitted for acute kidney failure and vancomycin ALLERGY. He is maintained on IV steroid and oral Benadryl. I asked nursing staff to obtain a chest x-ray and a blood gas. Attending physician was contacted by nurses. Patient was in relatively stable condition
[2020-12-09] MEDS ORDERED: IPRATROPIUM-ALBUTEROL 3 ML NEB INHALATION PRN (13:03)
--- NOTE | 2020-12-09 13:14 | XR ---
EXAMINATION TYPE: XR chest 1V portable DATE OF EXAM: 12/09/2020 COMPARISON: Chest x-ray 11/29/2020 HISTORY: Respiratory distress, hypoxia TECHNIQUE: Single frontal view of the chest is obtained. FINDINGS: Bilateral patchy airspace disease is present. Lung volumes are low and the patient is rota renee. There is overlying artifact. No evident pneumothorax or pleural effusion. Cardiac mediastinal si lhouette is thought to be within normal limits accounting for technique. IMPRESSION: Correlate for pneumonia, expiratory rotated exam, follow-up PA and lateral chest x-ray m ay be of benefit
--- NOTE | 2020-12-09 14:50 | PN ---
PROGRESS NOTE Patient is seen for followup for acute kidney injury secondary to vancomycin toxicity. His serum creatinine had increased significantly yesterday to 5.6 from 3.9 the day before and today it is at 7.8. This morning the patient is sleeping, he is snoring, arousable but lethargic. No nausea or vomiting noted. Urine output is maintained, although not accurately measured. PHYSICAL EXAMINATION: Today blood pressure was 111/76, heart rate 102 per minute, patient is afebrile. Examination of the heart S1, S2. Examination of the lungs, decreased breath sounds at the bases. Abdomen is soft, nontender, obese. Examination of lower extremities shows trace edema. Maculopapular rash is noted all over. LAB DATA: Show sodium 133, potassium 5.5, chloride 98, BUN of 54, serum creatinine 7.8, hemoglobin 11.3 g/dL. ASSESSMENT: 1. Acute kidney injury secondary to vancomycin toxicity with progressive renal failure and worsening of renal function over the last 3 days. Given the significant increase in creatinine and patient being lethargic, I will proceed with dialysis. He is advised and we will proceed with consult with Vascular Surgery and placement of dialysis catheter. We will plan for first treatment either today or tomorrow based on his mentation. 2. Hyperkalemia associated with progressive renal failure. 3. Spinal abscess with wound culture growing Staphylococcus epidermidis on 11/19/2020, maintained on antibiotics, being followed by Infectious Disease. 4. History of hypertension. PLAN: Consult Vascular Surgery for dialysis catheter placement and we will plan for hemodialysis either today or tomorrow based on his mentation over the rest of the day. MMODL / IJN: [id number] /
[2020-12-09] MEDS: FUROSEMIDE 10 MG/ML 4 ML VIAL IV SCH (15:23)
[2020-12-09] MEDS: IPRATROPIUM-ALBUTEROL 3 ML NEB INHALATION SCH ×2 (16:30→19:29)
--- NOTE | 2020-12-09 16:50 | P.CNPUL ---
History of Present Illness Consult date: 12/09/20 Requesting physician: Alyson Mosley Reason for consult: dyspnea, COPD, hypoxemia, obstructive sleep apnea Chief complaint: Acute respiratory failure. History of present illness: This is a 45-year-old male who presented to the emergency department on September 06 complaining of fever, and a rash. He is 15 days postop revision of L4-L5 with L4 through S1 fusion, and placement of antibiotic spacer. We actually know this patient because he came back from the operating room initially to the [facility] unit on the ventilator. He was quite rambunctious, and the patient was eventually extubated without a formal spontaneous breathing trial. The patient was apparently started on vancomycin 3 times a day for osteomyelitis. The patient presented to the emergency room on the with 2 days of fever and rash. The rash looks like a red man syndrome rash. It was extending in the back of his neck and extending down his whole back and sides of his chest. The surgery was done by Dr. Jama, and he recently saw him in the office. We were called in today because there was an "A" team called on the patient. The patient was apparently manifesting some respiratory distress. One of the charge nurses from the ICU, thought the patient was just a deep sleeper and probably suffering from some sleep apnea syndrome. The patient apparently does have a history of sleep apnea, but does not wear his CPAP/BiPAP device. She did not feel like the patient needed to be transferred down to the intensive care unit. Anyway, and we saw the patient, the patient was a bit sleepy, we recommended Solu-Medrol, Perforomist, and Pulmicort updrafts, and DuoNeb 4 times a day and when necessary. In addition, a blood gas was ordered but I didn't think it was necessary. Finally, we recommended BiPAP at 12/5 and 50%. We encouraged the patient to wear it until he started doing better. We'll be went to go see him, his saturations were in the low 90s, and at that time, he was on 6 L nasal cannula. He did arouse and respond appropriately. Review of Systems REVIEW OF SYSTEMS: CONSTITUTIONAL: Sleepiness, lethargy, somnolence. NEUROLOGIC: [ Negative.] HEENT: [ Negative.] CARDIAC: [Negative.] PULMONARY: Initially, low saturations. GI: [Negative.] : [Negative.] RHEUMATOLOGIC: [ Negative.] IMMUNOLOGIC: [ Negative.] ENDOCRINE: [Negative. ] DERMATOLOGIC: Diffuse body rash, primarily on his trunk. Past Medical History Past Medical History: Hypertension Additional Past Medical History / Comment(s): HERNIATED DISCS WITH BACK PAIN RADIATING DOWN RIGHT LEG., Osteomyelitis, spinal fusion. History of Any Multi-Drug Resistant Organisms: MRSA Date of last positivie culture/infection: Nov 2019 MDRO Source:: Spine Past Surgical History: Back Surgery Additional Past Surgical History / Comment(s): PAIN CLINIC PROCEDURES, JEMMA ROTATOR CUFF REPAIR, laminectomy x3 Past Anesthesia/Blood Transfusion Reactions: No Reported Reaction Past Psychological History: No Psychological Hx Reported Smoking Status: Current some day smoker Past Alcohol Use History: Occasional Additional Past Alcohol Use History / Comment(s): SMOKES 1 PPD, SMOKING SINCE 13 YEARS OLD Past Drug Use History: None Reported - Past Family History Mother Family Medical History: No Reported History Father Additional Family Medical History / Comment(s): heart disease Medications and Allergies Home Medications Medication Instructions Recorded Confirmed Type Meloxicam 15 mg PO DAILY PRN 12/07/17 12/07/20 History Atenolol [Tenormin] 100 mg PO DAILY 09/30/20 12/07/20 History Tadalafil [Cialis] 20 mg PO DAILY PRN 09/30/20 12/07/20 History hydroCHLOROthiazide [Hydrodiuril] 25 mg PO DAILY 09/30/20 12/07/20 History Lidocaine 5% Patch [Lidoderm] 1 patch TRANSDERM DAILY PRN 11/16/20 12/07/20 History Na Phos,M-B/Na Phos,Di-Ba [Fleet 133 ml RECTAL DAILY PRN 11/16/20 12/07/20 History Adult] bisacodyL [Dulcolax] 5 mg PO DAILY PRN 11/16/20 12/07/20 History Citalopram Hydrobromide [CeleXA] 20 mg PO DAILY 11/18/20 12/07/20 History Losartan Potassium 100 mg PO DAILY 11/18/20 12/07/20 History Gabapentin 600 mg PO TID 3 Days #90 tab 11/25/20 12/07/20 Rx Polyethylene Glycol 3350 [Miralax] 17 gm PO DAILY PRN #527 gm 11/25/20 12/07/20 Rx oxyCODONE-APAP 10-325MG [Percocet 1 - 2 tab PO Q4HR PRN 7 Days #70 11/25/20 12/07/20 Rx 10-325 mg] tab Acetaminophen Tab [Tylenol] 1,000 mg PO DAILY PRN 11/29/20 12/07/20 History Diazepam [Valium] 10 mg PO BID 12/07/20 12/07/20 History Sennosides/Docusate Sodium [Senna 1 tab PO BID PRN 12/07/20 12/07/20 History Plus 8.6-50 mg Softgel] Allergies Allergy/AdvReac Type Severity Reaction Status Date / Time No Known Allergies Allergy Verified 12/07/20 17:11 Physical Exam Osteopathic Statement: *. No significant issues noted on an osteopathic structural exam other than those noted in the History and Physical/Consult. Vitals: Vital Signs Temp Pulse Pulse Resp BP Pulse Ox 12/09/20 15:02 98.2 F 94 13 115/63 97 12/09/20 12:35 117 H 12/09/20 07:40 98.6 F 102 H 20 111/76 92 L 12/09/20 02:30 98.3 F 124 H 18 107/58 91 L 12/08/20 20:00 111 H 18 12/08/20 19:57 98.3 F 70 15 106/66 90 L Intake and Output 12/09/20 12/09/20 12/09/20 06:59 14:59 22:59 Intake Total 600 600 Balance 600 600 Intake: Oral 600 600 Other: # Voids 2 No acute distress, sleepy, but arousable, without audible wheezing, or use of accessory muscles, or conversational dyspnea. Nasal O2 in place at 6 L. HEENT examination is grossly unremarkable. Mucous membranes are moist. No oral lesions. Neck supple. Full range of motion. No adenopathy thyromegaly or neck vein distention. Cardiovascular examination reveals regular rhythm rate. S1-S2 normal. No S3 or S4. No discernible murmur noted. Heart sounds are distant. Lungs reveal bilateral inspiratory and expiratory wheezes and expiratory rhonchi. No crackles are appreciated. Breath sounds are equal bilaterally. Abdomen soft bowel sounds are heard. No masses or tenderness. Abdomen is obese. Extremities are intact. No cyanosis clubbing or edema. Skin reveals a red rash, on his neck, chest, and back.. Neurologic examination reveals the patient to be sleepy and lethargic, but arousable. Results - Laboratory Findings CBC and BMP: 12/09/20 05:34 12/09/20 05:34 Abnormal lab findings: Abnormal Labs 12/07/20 12/07/20 12/07/20 15:05 15:05 15:05 WBC 11.3 H RBC Hgb Hct Immature Gran # Neutrophils # 9.3 H Lymphocytes # 0.4 L Eosinophils # 0.8 H Sodium 131 L Chloride 97 L Carbon Dioxide Anion Gap BUN Creatinine 3.99 H Est GFR (CKD-EPI)AfAm Est GFR (CKD-EPI)NonAf BUN/Creatinine Ratio Glucose 100 H POC Glucose (mg/dL) Plasma Lactic Acid Pollo 2.8 H* Calcium 8.0 L C-Reactive Protein 145.5 H Total Protein 5.5 L Albumin 3.0 L Urine Protein Urine Glucose (UA) Urine Blood Ur Leukocyte Esterase Urine RBC Urine WBC Amorphous Sediment Urine Bacteria Urine Mucus Vancomycin Trough 12/07/20 12/08/20 12/08/20 15:05 06:05 06:05 WBC 11.44 H RBC 4.12 L Hgb 12.2 L Hct 37.9 L Immature Gran # 0.12 H Neutrophils # 10.55 H Lymphocytes # 0.28 L Eosinophils # Sodium 133 L Chloride Carbon Dioxide Anion Gap BUN 29.0 H Creatinine 5.6 H Est GFR (CKD-EPI)AfAm 13.0 L Est GFR (CKD-EPI)NonAf 11.2 L BUN/Creatinine Ratio 5.18 L Glucose 175 H POC Glucose (mg/dL) Plasma Lactic Acid Pollo Calcium 7.4 L C-Reactive Protein Total Protein Albumin Urine Protein Urine Glucose (UA) Urine Blood Ur Leukocyte Esterase Urine RBC Urine WBC Amorphous Sediment Urine Bacteria Urine Mucus Vancomycin Trough 60.1 H* 12/08/20 12/09/20 12/09/20 10:40 05:34 05:34 WBC 18.51 H RBC 3.85 L Hgb 11.3 L Hct 35.3 L Immature Gran # 0.28 H Neutrophils # 16.63 H Lymphocytes # 0.58 L Eosinophils # Sodium 133 L Chloride Carbon Dioxide 20.3 L Anion Gap 14.70 H BUN 54.0 H Creatinine 7.8 H* Est GFR (CKD-EPI)AfAm 8.7 L Est GFR (CKD-EPI)NonAf 7.5 L BUN/Creatinine Ratio 6.92 L Glucose 161 H POC Glucose (mg/dL) Plasma Lactic Acid Pollo Calcium 7.4 L C-Reactive Protein Total Protein Albumin Urine Protein 2+ H Urine Glucose (UA) 1+ H Urine Blood Moderate H Ur Leukocyte Esterase Trace H Urine RBC 26 H Urine WBC 22 H Amorphous Sediment Few H Urine Bacteria Moderate H Urine Mucus Few H Vancomycin Trough 12/09/20 12/09/20 11:54 12:32 WBC RBC Hgb Hct Immature Gran # Neutrophils # Lymphocytes # Eosinophils # Sodium Chloride Carbon Dioxide Anion Gap BUN Creatinine Est GFR (CKD-EPI)AfAm Est GFR (CKD-EPI)NonAf BUN/Creatinine Ratio Glucose POC Glucose (mg/dL) 255 H 247 H Plasma Lactic Acid Pollo Calcium C-Reactive Protein Total Protein Albumin Urine Protein Urine Glucose (UA) Urine Blood Ur Leukocyte Esterase Urine RBC Urine WBC Amorphous Sediment Urine Bacteria Urine Mucus Vancomycin Trough - Diagnostic Findings Chest x-ray: image reviewed Assessment and Plan Assessment: Acute on chronic hypoxemic respiratory failure, likely secondary to bronchospasm, as well as sleep apnea syndrome, noncompliant with CPAP/BiPAP. Rule out pickwickian syndrome. Obesity. Possible underlying sepsis secondary to osteomyelitis. Postop day #17, status post L4-L5 vision, with L4 through S1 fusion. Also, there was placement of antibiotics spacer. Diffuse truncal rash, possibly consistent with "red man" syndrome secondary to vancomycin infusion. History of hypertension. History of chronic back pain. Plan: Plan dated 12/09/2020. The patient is placed on BiPAP at 12/5 and 50% FiO2. The FiO2 can be titrated down as long as his saturations are above 90%. In addition, we had DuoNeb, 4 times a day and when necessary, as well as Pulmicort 1 mg and formoterol 20 g twice a day. The patient is ready on corticosteroids, and he is also on good antibiotics. We will continue to follow. We should make sure that he does not get anything which will affect his mental status such as sedatives, hypnotics, narcotics, and tranquilizers. We will continue to follow the patient closely and make recommendations were necessary. The patient will likely benefit from BiPAP therapy. Additional recommendations and suggestions are forthcoming. Prognosis is guarded. He remains on daptomycin. Ativan was discontinued. In addition, gabapentin was discontinued. Time with Patient: Greater than 30
--- NOTE | 2020-12-09 16:56 | P.CNOR ---
History of Present Illness - [facility] Consult date: 12/09/20 Consult reason: other (History of recent lumbar spine surgery) History of present illness: Patient is a 45-year-old male who is well known to our practice, he is recently undergone [address] Jama. is most recent surgery was in early November, he is status post revision decompression evacuation of epidural phlegmon, evacuation L4 5 and L5-S1 osteo-discitis with L4-S1 fusion and antibiotic spacer placement. Patient had been doing fairly well, he has been receiving IV antibiotics at home. He is being followed by home care. He was seen in the office last week by Dr. Jama for postoperative visit. There were no acute changes noted at that visit. Patient was evaluated today at bedside, he is on a BiPAP ventilator. He did have a friend with him in the room, I was able to discuss with her the events leading up to his most recent admission. They have noted a rash that was developing later Wednesday, patient was also mentioning feeling feverish. Symptoms progressively worsened and Wednesday which prompted them to come to the emergency room. Patient was noted to have a significantly elevated temperature and notable rash throughout many parts of the body. He was admitted under internal medicine, infectious disease was also consulted. Multiple lab tests have been done on the patient since being admitted, he was noted to have acute kidney failure that has worsened during his hospital stay. He is being followed by nephrology, they're recommending dialysis which will be likely started on 12/10/2020. While on the floor on 12/07/2020 patient was noted to have a severe hypoxic event, he's been on a BiPAP ventilator since then. The vancomycin has been discontinued, he is on daptomycin currently. At bedside while was discussing the patient's status with his friend, she did note she noticed 2 small blisters over the incision yesterday. Patient was sleeping at bedside today, he was hard to arouse, I was able to examine the area. Her remaining physical exam was very limited due to his current mental state. Patient's friend has noted he hasn't had significant pain in the low back, she feels like he's been doing very well since his second surgery. She noted he had no loss of bowel or bladder function. He was not complaining of no significant pain involving the bilateral lower extremities. No bilateral upper extremity weakness or pain. 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 MDRO Source:: Spine Past Surgical History: Back Surgery Additional Past Surgical History / Comment(s): PAIN CLINIC PROCEDURES, JEMMA ROTATOR CUFF REPAIR, laminectomy x3 Past Anesthesia/Blood Transfusion Reactions: No Reported Reaction Past Psychological History: No Psychological Hx Reported Smoking Status: Current some day smoker Past Alcohol Use History: Occasional Additional Past Alcohol Use History / Comment(s): SMOKES 1 PPD, SMOKING SINCE 13 YEARS OLD Past Drug Use History: None Reported - Past Family History Mother Family Medical History: No Reported History Father Additional Family Medical History / Comment(s): heart disease Medications and Allergies Home Medications Medication Instructions Recorded Confirmed Type Meloxicam 15 mg PO DAILY PRN 12/07/17 12/07/20 History Atenolol [Tenormin] 100 mg PO DAILY 09/30/20 12/07/20 History Tadalafil [Cialis] 20 mg PO DAILY PRN 09/30/20 12/07/20 History hydroCHLOROthiazide [Hydrodiuril] 25 mg PO DAILY 09/30/20 12/07/20 History Lidocaine 5% Patch [Lidoderm] 1 patch TRANSDERM DAILY PRN 11/16/20 12/07/20 History Na Phos,M-B/Na Phos,Di-Ba [Fleet 133 ml RECTAL DAILY PRN 11/16/20 12/07/20 History Adult] bisacodyL [Dulcolax] 5 mg PO DAILY PRN 11/16/20 12/07/20 History Citalopram Hydrobromide [CeleXA] 20 mg PO DAILY 11/18/20 12/07/20 History Losartan Potassium 100 mg PO DAILY 11/18/20 12/07/20 History Gabapentin 600 mg PO TID 3 Days #90 tab 11/25/20 12/07/20 Rx Polyethylene Glycol 3350 [Miralax] 17 gm PO DAILY PRN #527 gm 11/25/20 12/07/20 Rx oxyCODONE-APAP 10-325MG [Percocet 1 - 2 tab PO Q4HR PRN 7 Days #70 11/25/20 12/07/20 Rx 10-325 mg] tab Acetaminophen Tab [Tylenol] 1,000 mg PO DAILY PRN 11/29/20 12/07/20 History Diazepam [Valium] 10 mg PO BID 12/07/20 12/07/20 History Sennosides/Docusate Sodium [Senna 1 tab PO BID PRN 12/07/20 12/07/20 History Plus 8.6-50 mg Softgel] Allergies Allergy/AdvReac Type Severity Reaction Status Date / Time No Known Allergies Allergy Verified 12/07/20 17:11 Physical Examination Gen: Exam was limited due to patient being on ventilator Integument: Notable erythematous macular papular rash throughout most areas of the I was able to roll the patient on this side with help from the staff, a few Steri-Strips were present over the posterior lumbar incision. The blisters that were noted from the patient's friend seem to have ruptured. Those areas were more proximal and midline to the incision. There is a small area of serosanguineous drainage noted at the distal end of the incision. I was unable to appreciate any significant areas of fluctuance, there is no obvious purulent drainage from the wound ROM: Not assessed Sensory Exam: Not assessed Motor: Not assessed Reflexes: Not assessed Results - Labs Labs: Abnormal Lab Results - Last 24 Hours (Table) 12/09/20 12/09/20 12/09/20 Range/Units 05:34 05:34 11:54 WBC 18.51 H (4.50-10.00) X 10*3/uL RBC 3.85 L (4.40-5.60) X 10*6/uL Hgb 11.3 L (13.0-17.0) g/dL Hct 35.3 L (39.6-50.0) % Immature Gran # 0.28 H (0.00-0.04) X 10*3/uL Neutrophils # 16.63 H (1.80-7.70) X 10*3/uL Lymphocytes # 0.58 L (0.90-5.00) X 10*3/uL Sodium 133 L (135-145) mmol/L Carbon Dioxide 20.3 L (21.6-31.8) mmol/L Anion Gap 14.70 H (4.00-12.00) mmol/L BUN 54.0 H (9.0-27.0) mg/dL Creatinine 7.8 H* (0.6-1.5) mg/dL Est GFR (CKD-EPI)AfAm 8.7 L (60.0-200.0) Est GFR (CKD-EPI)NonAf 7.5 L (60.0-200.0) BUN/Creatinine Ratio 6.92 L (12.00-20.00) Ratio Glucose 161 H (70-110) mg/dL POC Glucose (mg/dL) 255 H (75-99) mg/dL Calcium 7.4 L (8.7-10.3) mg/dL 12/09/20 Range/Units 12:32 WBC (4.50-10.00) X 10*3/uL RBC (4.40-5.60) X 10*6/uL Hgb (13.0-17.0) g/dL Hct (39.6-50.0) % Immature Gran # (0.00-0.04) X 10*3/uL Neutrophils # (1.80-7.70) X 10*3/uL Lymphocytes # (0.90-5.00) X 10*3/uL Sodium (135-145) mmol/L Carbon Dioxide (21.6-31.8) mmol/L Anion Gap (4.00-12.00) mmol/L BUN (9.0-27.0) mg/dL Creatinine (0.6-1.5) mg/dL Est GFR (CKD-EPI)AfAm (60.0-200.0) Est GFR (CKD-EPI)NonAf (60.0-200.0) BUN/Creatinine Ratio (12.00-20.00) Ratio Glucose (70-110) mg/dL POC Glucose (mg/dL) 247 H (75-99) mg/dL Calcium (8.7-10.3) mg/dL Microbiology - Last 24 Hours (Table) 12/08/20 10:40 Urine Culture - Preliminary Urine,Voided 12/07/20 16:02 Blood Culture - Preliminary Blood No Growth after 24 hours H & H 12/07/20 12/08/20 12/09/20 Range/Units 15:05 06:05 05:34 Hgb 14.4 12.2 L 11.3 L (13.0-17.5) gm/dL Hct 44.1 37.9 L 35.3 L (39.0-53.0) % Result Diagrams: 12/09/20 05:34 12/09/20 05:34 Assessment and Plan Assessment: Status post revision decompression evacuation of epidural phlegmon evacuation L4 5 and L5-S1 osteo-discitis with L4-S1 fusion and antibiotic spacer placement Skin rash, antibiotic-related Acute kidney failure Other medical comorbidities Plan: I was able to discuss the case with attending Dr. Jama over the phone, he is unavailable for an hospital checks. Computed tomography scan of the lumbar spine without contrast will be ordered for tomorrow for recheck. There was notable seroma in his most recent computed tomography scan of the lumbar spine which is on 11/29/2020. Antibiotic spacer along with antibiotic beads were placed surgery which can cause this formation. Patient's lab values are difficult to assess, he's been on IV steroids which could cause a significant elevation which is noted of his white blood cell count. His sed rate remains at 10, his CRP is also significantly elevated at 145 on admission. I will redraw this for 12/10/2020. With his current kidney issue, these labs also may be significantly elevated. Currently the wound does not look actively infected, this was redressed today at bedside. We will continue to monitor this daily for any acute changes. If there is concern for a worsening prognosis with regards to the orthopedics spine pathology, I will reach out to Dr. Kim from [facility] We'll continue to follow patient during inpatient stay, a attempt will be made at a more in-depth physical exam once his medical status improves Please don't hesitate to contact us with any questions regarding this patient Time with Patient: Less than 30
[2020-12-09 16:58] LABS: Glucose,Whole Blood 162 mg/dL (75-99)
[2020-12-09] MEDS: FORMOTEROL FUMARATE 20 MCG/2 ML NEBU INHALATION SCH (19:29)
[2020-12-09] MEDS: BUDESONIDE 1 MG/2 ML NEBU INHALATION SCH (19:29)
[2020-12-09 20:24] LABS: Hepatitis B Surface AB- Quant 3.5 mIU/mL; Hepatitis B Surface Antibody Non-Reactive (Non-Reactive); Hepatitis B Surface Antigen Non-Reactive (Non-Reactive)
[2020-12-09 21:07] LABS: Glucose,Whole Blood 161 mg/dL (75-99)
--- NOTE | 2020-12-09 22:23 | PN ---
PROGRESS NOTE DATE OF SERVICE: 12/09/2020 REASON FOR FOLLOWUP: 1. Lumbar abscess. 2. Drug rash. INTERVAL HISTORY: The patient's overall fever pattern has improved. No fever has been recorded. Patient has been breathing comfortably but requiring BiPAP at times. Denies having any chest pain. No abdominal pain or diarrhea. PHYSICAL EXAMINATION: Blood pressure 114/70 with a pulse of 82, temperature 96.6. He is 99% on BiPAP. General description is a middle-aged male lying in bed in no distress. RESPIRATORY SYSTEM: Unlabored breathing. Coarse breath sounds bilaterally. HEART: S1, S2. Regular rate and rhythm. ABDOMEN: Soft. No tenderness. SKIN EXAMINATION: Diffuse maculopapular rash. LABS: Hemoglobin is 11.3, white count 18.51. BUN of 54, creatinine 7.8. Blood cultures have been negative. DIAGNOSTIC IMPRESSION AND PLAN: 1. Patient admitted to hospital with a fever and rash, likely secondary to vancomycin, which has been discontinued. On steroids; that can be slightly weaned off. 2. Patient with lumbosacral spine abscess. Cultures were positive for Staphylococcus epidermidis, oxacillin-resistant. Patient on daptomycin. That will be continued for now and monitor his clinical course closely. MMODL / IJN: [id number] /
[2020-12-10] MEDS: methylPREDNISolone SOD SUCCI 125 MG/2 ML VIAL IV SCH ×4 (05:20→23:31)
[2020-12-10] MEDS: SODIUM CHLORIDE 0.9% 1,000 ML IV SCH (05:20)
[2020-12-10] MEDS ORDERED: LIDOCAINE 1% INJ 10MG/ML (20 ML MDV) SQ ONE (06:08)
[2020-12-10] MEDS ORDERED: HYDROmorphone 0.5 MG/0.5 ML SYRINGE IVP ONE (06:10)
[2020-12-10 07:09] LABS: Glucose,Whole Blood 179 mg/dL (75-99)
[2020-12-10] MEDS: IPRATROPIUM-ALBUTEROL 3 ML NEB INHALATION SCH ×4 (07:25→19:08)
[2020-12-10] MEDS: BUDESONIDE 1 MG/2 ML NEBU INHALATION SCH ×2 (07:25→19:09)
[2020-12-10] MEDS: FORMOTEROL FUMARATE 20 MCG/2 ML NEBU INHALATION SCH ×2 (07:25→19:09)
[2020-12-10] MEDS: INSULIN ASPART (NovoLOG) 100 UNIT/ML VIAL SQ SCH ×4 (07:32→20:52)
[2020-12-10] MEDS: FUROSEMIDE 10 MG/ML 4 ML VIAL IV SCH (07:36)
[2020-12-10] MEDS: HEPARIN SODIUM,PORCINE 5,000 UNIT/ML 1 ML VIAL SQ SCH ×2 (07:36→20:52)
[2020-12-10 09:13] LABS: Basophils # (A) 0.03 X 10*3/uL (0.00-0.10); Basophils % (A) 0.2 %; Eosinophils # (A) 0.05 X 10*3/uL (0.04-0.35); Eosinophils % (A) 0.3 %; HCT 35.4 % (39.6-50.0); Lymphocytes # (A) 0.54 X 10*3/uL (0.90-5.00); Lymphocytes % (A) 3.6 %; MCHC 31.1 g/dL (32.0-37.0); MCV 93.4 fL (80.0-97.0); Monocytes # (A) 0.77 X 10*3/uL (0.20-1.00); Monocytes % (A) 5.1 %; Neutrophils # (A) 13.55 X 10*3/uL (1.80-7.70); Neutrophils % (A) 89.9 %; Platelet Count 274 X 10*3/uL (140-440); RBC 3.79 X 10*6/uL (4.40-5.60); RDW 14.4 % (11.5-14.5); WBC 15.08 X 10*3/uL (4.50-10.00)
[2020-12-10 09:50] LABS: African American GFR (CKD) 6.6 (60.0-200.0); Anion Gap 16.8 mmol/L (4.00-12.00); BUN/Creat Ratio 7.45 Ratio (12.00-20.00); C Reactive Protein 17.8 mg/dL (0.0-0.8); Calcium 7.2 mg/dL (8.7-10.3); Carbon Dioxide 17.2 mmol/L (21.6-31.8); Non-African American GFR(CKD) 5.7 (60.0-200.0); Potassium 5.7 mmol/L (3.5-5.5)
[2020-12-10] MEDS: METOPROLOL TARTRATE 25 MG TAB PO SCH (10:01)
[2020-12-10] MEDS: CITALOPRAM HYDROBROMIDE 20 MG TAB PO SCH (10:01)
--- NOTE | 2020-12-10 10:19 | IR ---
EXAMINATION TYPE: IR cvc insert >=5 years DATE OF EXAM: 12/10/2020 COMPARISON: NONE HISTORY: Fluoroscopy time. Fluoroscopy was provided to the referring clinician.
--- NOTE | 2020-12-10 10:50 | P.PN ---
Subjective Progress Note Date: 12/10/20 Principal diagnosis: Acute kidney injury, history of recent lumbar surgeries 2, other medical comorbidities Patient was evaluated today at bedside, his significant other was also present. Patient remains on BiPAP, he did receive his Port-A-Cath for the dialysis this morning. According to his significant other, his mental state is about the same. Lab results were reviewed today, his white blood cell count has trended down. His most recent CRP level is 17, it was 145 on admission. Patient was again difficult to arouse today to assess physical exam. He is scheduled for dialysis later this morning. He is being followed at this time by internal medicine, nephrology, pulmonology, infectious disease and orthopedic service. Objective - Vital Signs Vital signs: Vital Signs Temp 97.3 F L 12/10/20 07:50 Pulse 98 12/10/20 07:54 Resp 19 12/10/20 07:50 BP 124/78 12/10/20 07:50 Pulse Ox 93 L 12/10/20 07:50 Intake & Output 12/09/20 12/10/20 12/10/20 18:59 06:59 18:59 Intake Total 600 Balance 600 Intake: Oral 600 Other: # Voids 2 2 - Exam Gen: Exam was limited due to patient being on ventilator Integument: Notable erythematous macular papular rash over entire body Bandage was removed over the posterior lumbar incision. A few more the Steri- Strips have fallen off. The 2 small blisters that were noted to be ruptured yesterday are closed over. There was a small amount of drainage present on the bandage. There is no active drainage visualized from the wound, there are no obvious openings in the skin. There is no areas of fluctuance appreciated on exam. No arousable stimuli is appreciated with palpation throughout the midline and paravertebral regions of the lumbar spine ROM: Passive motion of the bilateral lower extremities was assessed with hip flexion, knee flexion, knee extension, straight leg raise. No painful stimuli was observed. Sensory Exam: Not assessed Motor: Not assessed Reflexes: Not assessed - Labs CBC & Chem 7: 12/10/20 05:23 12/10/20 05:23 Labs: Abnormal Lab Results - Last 24 Hours (Table) 12/07/20 12/09/20 12/09/20 Range/Units 15:05 11:54 12:32 WBC (4.50-10.00) X 10*3/uL RBC (4.40-5.60) X 10*6/uL Hgb (13.0-17.0) g/dL Hct (39.6-50.0) % MCHC (32.0-37.0) g/dL Immature Gran # (0.00-0.04) X 10*3/uL Neutrophils # (1.80-7.70) X 10*3/uL Lymphocytes # (0.90-5.00) X 10*3/uL Sodium (135-145) mmol/L Potassium (3.5-5.5) mmol/L Carbon Dioxide (21.6-31.8) mmol/L Anion Gap (4.00-12.00) mmol/L BUN (9.0-27.0) mg/dL Creatinine (0.6-1.5) mg/dL Est GFR (CKD-EPI)AfAm (60.0-200.0) Est GFR (CKD-EPI)NonAf (60.0-200.0) BUN/Creatinine Ratio (12.00-20.00) Ratio Glucose (70-110) mg/dL POC Glucose (mg/dL) 255 H 247 H (75-99) mg/dL Calcium (8.7-10.3) mg/dL C-Reactive Protein (0.0-0.8) mg/dL Hep B Core Total Ab Reactive A (Non-Reactive) 12/09/20 12/09/20 12/10/20 Range/Units 16:54 21:05 05:23 WBC 15.08 H (4.50-10.00) X 10*3/uL RBC 3.79 L (4.40-5.60) X 10*6/uL Hgb 11.0 L (13.0-17.0) g/dL Hct 35.4 L (39.6-50.0) % MCHC 31.1 L (32.0-37.0) g/dL Immature Gran # 0.14 H (0.00-0.04) X 10*3/uL Neutrophils # 13.55 H (1.80-7.70) X 10*3/uL Lymphocytes # 0.54 L (0.90-5.00) X 10*3/uL Sodium (135-145) mmol/L Potassium (3.5-5.5) mmol/L Carbon Dioxide (21.6-31.8) mmol/L Anion Gap (4.00-12.00) mmol/L BUN (9.0-27.0) mg/dL Creatinine (0.6-1.5) mg/dL Est GFR (CKD-EPI)AfAm (60.0-200.0) Est GFR (CKD-EPI)NonAf (60.0-200.0) BUN/Creatinine Ratio (12.00-20.00) Ratio Glucose (70-110) mg/dL POC Glucose (mg/dL) 162 H 161 H (75-99) mg/dL Calcium (8.7-10.3) mg/dL C-Reactive Protein (0.0-0.8) mg/dL Hep B Core Total Ab (Non-Reactive) 12/10/20 12/10/20 Range/Units 05:23 07:08 WBC (4.50-10.00) X 10*3/uL RBC (4.40-5.60) X 10*6/uL Hgb (13.0-17.0) g/dL Hct (39.6-50.0) % MCHC (32.0-37.0) g/dL Immature Gran # (0.00-0.04) X 10*3/uL Neutrophils # (1.80-7.70) X 10*3/uL Lymphocytes # (0.90-5.00) X 10*3/uL Sodium 132 L (135-145) mmol/L Potassium 5.7 H (3.5-5.5) mmol/L Carbon Dioxide 17.2 L (21.6-31.8) mmol/L Anion Gap 16.80 H (4.00-12.00) mmol/L BUN 73.0 H (9.0-27.0) mg/dL Creatinine 9.8 H* (0.6-1.5) mg/dL Est GFR (CKD-EPI)AfAm 6.6 L (60.0-200.0) Est GFR (CKD-EPI)NonAf 5.7 L (60.0-200.0) BUN/Creatinine Ratio 7.45 L (12.00-20.00) Ratio Glucose 148 H (70-110) mg/dL POC Glucose (mg/dL) 179 H (75-99) mg/dL Calcium 7.2 L (8.7-10.3) mg/dL C-Reactive Protein 17.8 H (0.0-0.8) mg/dL Hep B Core Total Ab (Non-Reactive) Microbiology - Last 24 Hours (Table) 12/08/20 10:40 Urine Culture - Final Urine,Voided 12/07/20 16:02 Blood Culture - Preliminary Blood No Growth after 48 hours Assessment and Plan Assessment: Status post revision decompression evacuation of epidural phlegmon evacuation L4 5 and L5-S1 osteo-discitis with L4-S1 fusion and antibiotic spacer placement Skin rash, antibiotic-related Acute kidney failure Other medical comorbidities Plan: Computed tomography scan will be canceled at this time, patient remains on BiP AP. May consider computed tomography scan as patient's medical status improves Patient's inflammatory markers have continued to trend down. Patient's incision remains stable, and a new bandage was placed at bedside. We will continue to monitor Hope[facility] patient's overall medical status continues to improve after dialysis today. We'll continue to follow patient during inpatient stay, a attempt will be made at a more in-depth physical exam once his medical status improves Please don't hesitate to contact us with any questions regarding this patient Time with Patient: Less than 30
--- NOTE | 2020-12-10 11:12 | P.PN ---
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 Patient states that when she had GI bleed she had similar symptoms and presents to ER for evaluation. Patient states that she was having some dark-colored stools during the last 2 days which she attributes to her food intake. Patient also complaining of shortness of breath with exertion. No chest pain. On and off leg swelling currently denied any leg swelling. No fever no chills. No cough or sputum production. No recent illnesses or infections. No recent travel. Chest x-ray showed no evidence of acute pulmonary disease EKG showed normal sinus rhythm with left atrial enlargement. Patient is has history of heart murmur for which patient was seen by cardiology in the past. Laboratory showed hemoglobin level was 6.5 on admission and FOBT positive. BUN 14 creatinine 0.81 potassium 4.5 sodium 136 and blood sugar is 214 and magnesium 1.1 and calcium 10.4 coronavirus PCR is not detected. 12/07/2020 Patient is currently sitting in a chair. Awake alert oriented x3. Patient was started on capsule endoscopy study. Denied any complaints abdominal pain. Hemoglobin is at 7.0 today. No headache or dizziness or lightheadedness. GI is following. Continue insulin sliding scale and blood sugar control. 12/08/2020 Patient is currently resting in the bed comfortably. Denied any complaints of nausea vomiting or abdominal pain or diarrhea. Patient did have brown bowel movement today. Hemoglobin level is 7.1 today. Report pending for capsule endoscopy. GI is on board. Patient was started on oral diet and adjust insulin dose. subjective 12/09/20 this is a pleasant 45 years old male who presents because of fever and generalized macular papular rash , thought to be secondary to vancomycin toxicity , patient was on vancomycin for lumbar abscess , he is a status post laminectomy secondary to staph epidermidis resistant to oxacillin. Also with acute kidney injury and creatinine is 7.8 today with nephrology on the case and possible hemodialysis patient today he has some sleep breathing difficulty , he states that he has s leep apnea but not using BiPAP/CPAP at home. he denies previous diagnosis of COPD however his cutting back his smoking from 1.5 down to 0.5 pack per day , however patient is already on Solu-Medrol 60 mg 4 times a day for his rash He is a little short of breath today. No chest pain or coughing. No abdominal pain. He thinks his rash is the same but it itching improved , although is not resolved completely. Also he is on daptomycin and gentle hydration with normal saline at 50 mL per hour ID team and chief cruiser teams the case 12/10/2020 Patient still with some respiratory distress, he is on BiPAP overnight. This will help decrease air intraorally with scattered wheezing. His still on Solu- Medrol His extremity and trunk rash is better. He is for Right inguinal catheter was placed for hemodialysis. Patient most likely is going for hemodialysis per nephrology team. She denies any other new complaints, no chest pain, he denies abdominal pain, no nausea vomiting or diarrhea. No fever Orthopedic team input is appreciated and they recommended CT of the lumbar spine Review of systems CONSTITUTIONAL: No fever, no malaise, no fatigue. HEENT: No recent visual problems or hearing problems. Denied any sore throat. CARDIOVASCULAR: No orthopnea, PND, no palpitations, no syncope. PULMONARY: No chest wall tenderness, no hemoptysis. GASTROINTESTINAL: No diarrhea, no nausea, no vomiting, no abdominal pain. Normoactive bowel sounds. NEUROLOGICAL: No headaches, no weakness, no numbness. HEMATOLOGICAL: Denies any bleeding or petechiae. Active Medications Generic Name Dose Route Start Last Admin Trade Name Rejiq PRN Reason Stop Dose Admin Acetaminophen 650 mg 12/07/20 16:47 12/08/20 22:18 Acetaminophen Tab 325 Mg Tab PO 650 mg Q6HR PRN Administration Mild Pain or Fever > 100.5 Albuterol/Ipratropium 3 ml 12/09/20 16:00 12/10/20 10:57 Ipratropium-Albuterol 3 Ml Neb INHALATION 3 ml RT-QID ZECHARIAH Administration Albuterol/Ipratropium 3 ml 12/09/20 13:03 Ipratropium-Albuterol 3 Ml Neb INHALATION RT-Q2H PRN Shortness Of Breath Or Wheezing Bisacodyl 5 mg 12/07/20 19:33 Bisacodyl 5 Mg Tablet.Dr PO DAILY PRN Constipation Budesonide 1 mg 12/09/20 20:00 12/10/20 07:25 Budesonide 1 Mg/2 Ml Nebu INHALATION 1 mg RT-BID ZECHARIAH Administration Citalopram Hydrobromide 20 mg 12/08/20 09:00 12/10/20 10:01 Citalopram Hydrobromide 20 Mg Tab PO Not Given DAILY ZECHARIAH Diphenhydramine HCl 25 mg 12/09/20 08:25 Diphenhydramine 25 Mg Cap PO BID PRN Itching Formoterol Fumarate 20 mcg 12/09/20 20:00 12/10/20 07:25 Formoterol Fumarate 20 Mcg/2 Ml Nebu INHALATION 20 mcg RT-BID ZECHARIAH Administration Furosemide 40 mg 12/09/20 15:15 12/10/20 07:36 Furosemide 10 Mg/Ml 4 Ml Vial IV 40 mg DAILY ZECHARIAH Administration Heparin Sodium (Porcine) 5,000 unit 12/09/20 10:45 12/10/20 07:36 Heparin Sodium,Porcine 5,000 Unit/Ml 1 Ml Vial SQ 5,000 unit Q12HR ZECHARIAH Administration Sodium Chloride 1,000 mls @ 100 mls/hr 12/07/20 17:00 12/10/20 05:20 Saline 0.9% IV 100 mls/hr .Q10H ZECHARIAH Administration Daptomycin 800 mg/ Sodium 50 mls @ 100 mls/hr 12/09/20 20:00 12/09/20 22:28 Chloride IVPB 100 mls/hr Q48H ZECHARIAH Administration Protocol Insulin Aspart 0 unit 12/09/20 12:30 12/10/20 07:32 Insulin Aspart (Novolog) 100 Unit/Ml Vial SQ Not Given ACHS [facility] Protocol Lidocaine 1 patch 12/07/20 19:33 Lidocaine 5% Patch TOPICAL DAILY PRN Pain Methylprednisolone Sodium Succinate 60 mg 12/08/20 00:00 12/10/20 07:37 Methylprednisolone Sod Succi 125 Mg/2 Ml Vial IV 60 mg Q6HR ZECHARIAH Administration Metoprolol Tartrate 25 mg 12/08/20 09:00 12/10/20 10:01 Metoprolol Tartrate 25 Mg Tab PO Not Given DAILY ZECHARIAH Naloxone HCl 0.2 mg 12/07/20 16:47 Naloxone 0.4 Mg/Ml 1 Ml Vial IV Q2M PRN Opioid Reversal Ondansetron HCl 4 mg 12/07/20 16:47 Ondansetron 4 Mg/2 Ml Vial IVP Q8HR PRN Nausea And Vomiting Oxycodone/Acetaminophen 1 each 12/07/20 16:34 12/09/20 04:12 Oxycodone-Apap 10-325mg 1 Each Tab PO 1 each Q4H PRN Administration Pain Polyethylene Glycol 17 gm 12/07/20 19:33 Polyethylene Glycol 3350 17 Gm Powd.Pack PO DAILY PRN Constipation Senna/Docusate Sodium 1 each 12/07/20 19:33 Sennosides-Docusate Sodium 1 Each Tab PO BID PRN Constipation Sodium Biphosphate/Sodium Phosphate 133 ml 12/07/20 19:33 Na Phos,M-B/Na Phos,Di-Ba 133 Ml Enema RECTAL DAILY PRN Constipation Objective - Vital Signs Vital signs: Vital Signs Temp 97.3 F L 12/10/20 07:50 Pulse 96 12/10/20 11:00 Resp 19 12/10/20 07:50 BP 124/78 12/10/20 07:50 Pulse Ox 93 L 12/10/20 07:50 Intake & Output 12/09/20 12/10/20 12/10/20 18:59 06:59 18:59 Intake Total 600 Balance 600 Intake: Oral 600 Other: # Voids 2 2 - Exam -GENERAL: The patient is alert and oriented x3, not in any acute distress. Obese HEENT: Pupils are round and equally reacting to light. EOMI. No scleral icterus. No conjunctival pallor. Normocephalic, atraumatic. No pharyngeal erythema. No thyromegaly. CARDIOVASCULAR: S1 and S2 present. No murmurs, rubs, or gallops. PULMONARY: Chest is clear to auscultation, no wheezing or crackles. ABDOMEN: Soft, nontender, nondistended, normoactive bowel sounds. No palpable organomegaly. -MUSCULOSKELETAL: No joint swelling or deformity. Midline lower back scar, healed with no drainage or open wound EXTREMITIES: No cyanosis, clubbing, or pedal edema. NEUROLOGICAL: Gross neurological examination did not reveal any focal deficits. -SKIN: no petechiae. He has extensive rash, maculopapular previous more confluent on the chest, back and extending into most of the abdomen as well as extremities. No mouth ulcer -Genitalia: Patient refused - Labs CBC & Chem 7: 12/10/20 05:23 12/10/20 05:23 Labs: Abnormal Lab Results - Last 24 Hours (Table) 12/07/20 12/09/20 12/09/20 Range/Units 15:05 11:54 12:32 WBC (4.50-10.00) X 10*3/uL RBC (4.40-5.60) X 10*6/uL Hgb (13.0-17.0) g/dL Hct (39.6-50.0) % MCHC (32.0-37.0) g/dL Immature Gran # (0.00-0.04) X 10*3/uL Neutrophils # (1.80-7.70) X 10*3/uL Lymphocytes # (0.90-5.00) X 10*3/uL Sodium (135-145) mmol/L Potassium (3.5-5.5) mmol/L Carbon Dioxide (21.6-31.8) mmol/L Anion Gap (4.00-12.00) mmol/L BUN (9.0-27.0) mg/dL Creatinine (0.6-1.5) mg/dL Est GFR (CKD-EPI)AfAm (60.0-200.0) Est GFR (CKD-EPI)NonAf (60.0-200.0) BUN/Creatinine Ratio (12.00-20.00) Ratio Glucose (70-110) mg/dL POC Glucose (mg/dL) 255 H 247 H (75-99) mg/dL Calcium (8.7-10.3) mg/dL C-Reactive Protein (0.0-0.8) mg/dL Hep B Core Total Ab Reactive A (Non-Reactive) 12/09/20 12/09/20 12/10/20 Range/Units 16:54 21:05 05:23 WBC 15.08 H (4.50-10.00) X 10*3/uL RBC 3.79 L (4.40-5.60) X 10*6/uL Hgb 11.0 L (13.0-17.0) g/dL Hct 35.4 L (39.6-50.0) % MCHC 31.1 L (32.0-37.0) g/dL Immature Gran # 0.14 H (0.00-0.04) X 10*3/uL Neutrophils # 13.55 H (1.80-7.70) X 10*3/uL Lymphocytes # 0.54 L (0.90-5.00) X 10*3/uL Sodium (135-145) mmol/L Potassium (3.5-5.5) mmol/L Carbon Dioxide (21.6-31.8) mmol/L Anion Gap (4.00-12.00) mmol/L BUN (9.0-27.0) mg/dL Creatinine (0.6-1.5) mg/dL Est GFR (CKD-EPI)AfAm (60.0-200.0) Est GFR (CKD-EPI)NonAf (60.0-200.0) BUN/Creatinine Ratio (12.00-20.00) Ratio Glucose (70-110) mg/dL POC Glucose (mg/dL) 162 H 161 H (75-99) mg/dL Calcium (8.7-10.3) mg/dL C-Reactive Protein (0.0-0.8) mg/dL Hep B Core Total Ab (Non-Reactive) 12/10/20 12/10/20 Range/Units 05:23 07:08 WBC (4.50-10.00) X 10*3/uL RBC (4.40-5.60) X 10*6/uL Hgb (13.0-17.0) g/dL Hct (39.6-50.0) % MCHC (32.0-37.0) g/dL Immature Gran # (0.00-0.04) X 10*3/uL Neutrophils # (1.80-7.70) X 10*3/uL Lymphocytes # (0.90-5.00) X 10*3/uL Sodium 132 L (135-145) mmol/L Potassium 5.7 H (3.5-5.5) mmol/L Carbon Dioxide 17.2 L (21.6-31.8) mmol/L Anion Gap 16.80 H (4.00-12.00) mmol/L BUN 73.0 H (9.0-27.0) mg/dL Creatinine 9.8 H* (0.6-1.5) mg/dL Est GFR (CKD-EPI)AfAm 6.6 L (60.0-200.0) Est GFR (CKD-EPI)NonAf 5.7 L (60.0-200.0) BUN/Creatinine Ratio 7.45 L (12.00-20.00) Ratio Glucose 148 H (70-110) mg/dL POC Glucose (mg/dL) 179 H (75-99) mg/dL Calcium 7.2 L (8.7-10.3) mg/dL C-Reactive Protein 17.8 H (0.0-0.8) mg/dL Hep B Core Total Ab (Non-Reactive) Microbiology - Last 24 Hours (Table) 12/08/20 10:40 Urine Culture - Final Urine,Voided 12/07/20 16:02 Blood Culture - Preliminary Blood No Growth after 48 hours Assessment and Plan Assessment: Nonoliguric Acute kidney injury due to ATN secondary to hypotension and toxicity to vancomycin. Ongoing and recent lumbar abscess status post laminectomy secondary to staph epidermidis resistant to oxacillin Maculopapular rash Lactic acidosis, resolved Mild Hypovolemic hyponatremia Recent L4- S1 fusion surgery and revision and incision and drainage with antibiotic spacer. Hypertension currently not hypertensive Morbid obesity with BMI 41.6 Possible history of obstructive sleep apnea as per patient, not on CPAP and BiPAP Plan: This is a pleasant 45 years old male who presents with vancomycin toxicity, lumbar abscess, ACI rash. Continue with daptomycin as per ID team recommendation. Continue with Solu-Medrol and consult lead burner helper. Continue with gentle hydration, currently normal saline at 50 mL/h with the chief cruiser on the case, patient may need hemodialysis as per chief cruiser recommendation Patient was instructed to follow up as an outpatient with patient access representative for sleep studies Continued with pain management and follow up closely. Labs and medication were reviewed.. Continue same treatment. Continue with symptomatic treatment. Resume home medication. Monitor lytes and vitals. DVT and GI prophylaxis. Further recommendationsas per clinical course of the patient DVT prophylaxis: Subcutaneous heparin GI Prophylaxis: Pepcid PT/OT: Pending Prognosis is guarded
[2020-12-10 11:43] LABS: Glucose,Whole Blood 217 mg/dL (75-99)
--- NOTE | 2020-12-10 14:33 | PN ---
PROGRESS NOTE Patient is seen for followup for acute kidney injury secondary to vancomycin toxicity and NSAIDs along with hypotension at the time of admission. The patient's serum creatinine continues to increase. It is up to 9.8 today. He has had his dialysis catheter placed yesterday and we will dialyze him today. PHYSICAL EXAMINATION: On examination today, patient is comfortable. He is sleepy, lethargic, not in any acute distress. He seems to have tremors as well today. Vital signs show blood pressure 124/78, heart rate 98 per minute. He is afebrile. EXAMINATION OF THE HEART: S1, S2. EXAMINATION OF THE LUNGS: Decreased breath sounds at bases. Abdomen is soft, morbidly obese. Examination of lower extremities shows trace edema of lower extremities. [employer] exam shows patient is lethargic, moving all 4 extremities though. LABS: Labs show sodium 132, potassium 5.7, chloride 98, CO2 is 17.2, BUN 73, creatinine 9.8, calcium 7.2, hemoglobin 11.0 g/dL. ASSESSMENT: 1. Acute kidney injury, multifactorial, including vancomycin toxicity. Vancomycin level was at 60 and the acute kidney injury is also exacerbated by use of NSAIDs along with hypotension in the setting of use of angiotensin receptor blockers prior to admission. Currently maintained on IV fluids, but given the rapid increase in his creatinine and worsening renal function, patient will be dialyzed. We will plan for a treatment again tomorrow. In the meantime, I will discontinue the IV fluids. 2. Metabolic acidosis associated with renal failure expect improvement with initiation of dialysis. 3. Staph epi wound infection with spinal abscess, status post vancomycin, currently maintained on daptomycin. PLAN: Discontinue IV fluids. Check accurate I's and O's. Hemodialysis today and then again in a.m. Check phosphorus levels with labs in a.m. The patient's is present at bedside and this is discussed with her as well. MMODL / IJN: [id number] /
--- NOTE | 2020-12-10 15:31 | P.PN ---
Subjective Progress Note Date: 12/10/20 Principal diagnosis: Acute hypoxic respiratory failure, related to obstructive sleep apnea, fluid overload, acute kidney injury This is a 45-year-old male who presented to the emergency department on September 06 complaining of fever, and a rash. He is 15 days postop revision of L4-L5 with L4 through S1 fusion, and placement of antibiotic spacer. We actually know this patient because he came back from the operating room initially to the intensive care unit on the ventilator. He was quite rambunctious, and the patient was eventually extubated without a formal spontaneous breathing trial. The patient was apparently started on vancomycin 3 times a day for osteomyelitis. The patient presented to the emergency room on the with 2 days of fever and rash. The rash looks like a red man syndrome rash. It was extending in the back of his neck and extending down his whole back and sides of his chest. The surgery was done by Dr. Jama, and he recently saw him in the office. We were called in today because there was an "A" team called on the patient. The patient was apparently manifesting some respiratory distress. One of the charge nurses from the ICU, thought the patient was just a deep sleeper and probably suffering from some sleep apnea syndrome. The patient apparently does have a history of sleep apnea, but does not wear his CPAP/BiPAP device. She did not feel like the patient needed to be transferred down to the intensive care unit. Anyway, and we saw the patient, the patient was a bit sleepy, we recommended Solu-Medrol, Perforomist, and Pulmicort updrafts, and DuoNeb 4 times a day and when necessary. In addition, a blood gas was ordered but I didn't think it was necessary. Finally, we recommended BiPAP at 12/5 and 50%. We encouraged the patient to wear it until he started doing better. We'll be went to go see him, his saturations were in the low 90s, and at that time, he was on 6 L nasal cannula. He did arouse and respond appropriately. On 12/10/2020 patient seen in follow-up. He remains on BiPAP support, tolerating it well, resting comfortably in bed, BiPAP pressures of 12 and 5 and 50%, his lung sounds are diminished, he is a urine output has been diminished, his renal function continues to worsen, today's BUN is up to 73 and creatinine is 9.8 with potassium of 5.7, temporary emergent hemodialysis catheter was pl aced in the femoral area, and patient will have his hemodialysis treatment today, the rest of his blood work has been reviewed, showing white blood cell count of 15, hemoglobin is 11. His urinalysis showed possibility of a urinary tract infection, his blood and urine cultures have been negative, gastric chest x-ray showed bilateral patchy airspace disease, low lung volumes. Patient remains on daptomycin, and treatments, IV steroids. He is on IV Lasix 40 mg daily. Has not had significant diuresis Objective - Vital Signs Vital signs: Vital Signs Temp 96.3 F L 12/10/20 14:00 Pulse 97 12/10/20 14:00 Resp 18 12/10/20 14:00 BP 123/74 12/10/20 14:00 Pulse Ox 97 12/10/20 14:00 Intake & Output 12/09/20 12/10/20 12/10/20 18:59 06:59 18:59 Intake Total 600 Balance 600 Intake: Oral 600 Other: # Voids 2 2 - Exam GENERAL EXAM: Lethargic but arousable, 45 white male, resting in bed, on BiPAP with pressures of 12 and 5, and FiO2 of 50% comfortable in no apparent distress. HEAD: Normocephalic/atraumatic. EYES: Normal reaction of pupils, equal size. Conjunctiva pink, sclera white. NOSE: Clear with pink turbinates. THROAT: No erythema or exudates. NECK: No masses, no JVD, no thyroid enlargement, no adenopathy. CHEST: No chest wall deformity. Symmetrical expansion. LUNGS: Equal air entry with no crackles, wheeze, rhonchi or dullness. CVS: Regular rate and rhythm, normal S1 and S2, no gallops, no murmurs, no rubs ABDOMEN: Soft, nontender. No hepatosplenomegaly, normal bowel sounds, no guarding or rigidity. EXTREMITIES: No clubbing, no edema, no cyanosis, 2+ pulses and upper and lower extremities. MUSCULOSKELETAL: Muscle strength and tone normal. SPINE: No scoliosis or deformity SKIN: Patient has significant red confluent rash all over patient's face, shoulders, neck, abdomen, back and upper thighs CENTRAL NERVOUS SYSTEM: A 30, on BiPAP support, No focal deficits, tone is normal in all 4 extremities. - Labs CBC & Chem 7: 12/10/20 05:23 12/10/20 05:23 Labs: Abnormal Lab Results - Last 24 Hours (Table) 12/07/20 12/09/20 12/09/20 Range/Units 15:05 16:54 21:05 WBC (4.50-10.00) X 10*3/uL RBC (4.40-5.60) X 10*6/uL Hgb (13.0-17.0) g/dL Hct (39.6-50.0) % MCHC (32.0-37.0) g/dL Immature Gran # (0.00-0.04) X 10*3/uL Neutrophils # (1.80-7.70) X 10*3/uL Lymphocytes # (0.90-5.00) X 10*3/uL Sodium (135-145) mmol/L Potassium (3.5-5.5) mmol/L Carbon Dioxide (21.6-31.8) mmol/L Anion Gap (4.00-12.00) mmol/L BUN (9.0-27.0) mg/dL Creatinine (0.6-1.5) mg/dL Est GFR (CKD-EPI)AfAm (60.0-200.0) Est GFR (CKD-EPI)NonAf (60.0-200.0) BUN/Creatinine Ratio (12.00-20.00) Ratio Glucose (70-110) mg/dL POC Glucose (mg/dL) 162 H 161 H (75-99) mg/dL Calcium (8.7-10.3) mg/dL C-Reactive Protein (0.0-0.8) mg/dL Hep B Core Total Ab Reactive A (Non-Reactive) 12/10/20 12/10/20 12/10/20 Range/Units 05:23 05:23 07:08 WBC 15.08 H (4.50-10.00) X 10*3/uL RBC 3.79 L (4.40-5.60) X 10*6/uL Hgb 11.0 L (13.0-17.0) g/dL Hct 35.4 L (39.6-50.0) % MCHC 31.1 L (32.0-37.0) g/dL Immature Gran # 0.14 H (0.00-0.04) X 10*3/uL Neutrophils # 13.55 H (1.80-7.70) X 10*3/uL Lymphocytes # 0.54 L (0.90-5.00) X 10*3/uL Sodium 132 L (135-145) mmol/L Potassium 5.7 H (3.5-5.5) mmol/L Carbon Dioxide 17.2 L (21.6-31.8) mmol/L Anion Gap 16.80 H (4.00-12.00) mmol/L BUN 73.0 H (9.0-27.0) mg/dL Creatinine 9.8 H* (0.6-1.5) mg/dL Est GFR (CKD-EPI)AfAm 6.6 L (60.0-200.0) Est GFR (CKD-EPI)NonAf 5.7 L (60.0-200.0) BUN/Creatinine Ratio 7.45 L (12.00-20.00) Ratio Glucose 148 H (70-110) mg/dL POC Glucose (mg/dL) 179 H (75-99) mg/dL Calcium 7.2 L (8.7-10.3) mg/dL C-Reactive Protein 17.8 H (0.0-0.8) mg/dL Hep B Core Total Ab (Non-Reactive) 12/10/20 Range/Units 11:40 WBC (4.50-10.00) X 10*3/uL RBC (4.40-5.60) X 10*6/uL Hgb (13.0-17.0) g/dL Hct (39.6-50.0) % MCHC (32.0-37.0) g/dL Immature Gran # (0.00-0.04) X 10*3/uL Neutrophils # (1.80-7.70) X 10*3/uL Lymphocytes # (0.90-5.00) X 10*3/uL Sodium (135-145) mmol/L Potassium (3.5-5.5) mmol/L Carbon Dioxide (21.6-31.8) mmol/L Anion Gap (4.00-12.00) mmol/L BUN (9.0-27.0) mg/dL Creatinine (0.6-1.5) mg/dL Est GFR (CKD-EPI)AfAm (60.0-200.0) Est GFR (CKD-EPI)NonAf (60.0-200.0) BUN/Creatinine Ratio (12.00-20.00) Ratio Glucose (70-110) mg/dL POC Glucose (mg/dL) 217 H (75-99) mg/dL Calcium (8.7-10.3) mg/dL C-Reactive Protein (0.0-0.8) mg/dL Hep B Core Total Ab (Non-Reactive) Microbiology - Last 24 Hours (Table) 12/08/20 10:40 Urine Culture - Final Urine,Voided 12/07/20 16:02 Blood Culture - Preliminary Blood No Growth after 48 hours Assessment and Plan Plan: Assessment: Acute on chronic hypoxemic respiratory failure, likely secondary to bronchospasm, as well as sleep apnea syndrome, noncompliant with CPAP/BiPAP. Acute kidney injury, fluid overload, hyperkalemia Rule out pickwickian syndrome. Obesity. Possible underlying sepsis secondary to osteomyelitis. Postop day #18, status post L4-L5 vision, with L4 through S1 fusion. Also, there was placement of antibiotics spacer. Diffuse truncal rash, possibly consistent with "red man" syndrome secondary to vancomycin infusion. History of hypertension. History of chronic back pain. Plan: Continue BiPAP support, patient will be started on hemodialysis today, may give patient periods off the BiPAP support on nasal cannula, continue b ronchodilators, IV steroids, and antibiotics. Maintain aspiration precautions. Monitor for signs of worsening mental status, I'll avoid narcotics hypnotics, sedatives. Follow-up chest x-ray in the morning. Follow-up labs quitting electrolyte and renal profile. We'll continue to closely follow I performed a history & physical examination of the patient and discussed their management with my nurse practitioner, Lyndsey Witt. I reviewed the nurse practitioner's note and agree with the documented findings and plan of care. Lung sounds are positive for diffuse wheezes throughout the lung valentin. The findings and the impression was discussed with the patient. I attest to the documentation by the nurse practitioner. Time with Patient: Less than 30
[2020-12-10 16:37] LABS: Glucose,Whole Blood 180 mg/dL (75-99)
[2020-12-10 20:42] LABS: Glucose,Whole Blood 194 mg/dL (75-99)
--- NOTE | 2020-12-10 22:47 | PN ---
PROGRESS NOTE DATE OF SERVICE: 12/10/2020 REASON FOR FOLLOWUP: 1. Lumbar abscess. 2. Drug rash. INTERVAL HISTORY: The patient is currently afebrile. The patient is breathing comfortably. Denies having any chest pain, shortness of breath or cough. No abdominal pain. No diarrhea. PHYSICAL EXAMINATION: Blood pressure 122/68 with a pulse of 93, temperature 98.4. He is 96% BiPAP. General description is a middle-aged male lying in bed in no distress. RESPIRATORY SYSTEM: Unlabored breathing with decreased breath sounds at the base. No wheeze. HEART: S1, S2. Regular rate and rhythm. ABDOMEN: Soft. No tenderness. LABS: Hemoglobin is 11, white count 15.08, creatinine 9.8. DIAGNOSTIC IMPRESSION AND PLAN: 1. Patient with a fever and drug rash. Vancomycin has been discontinued. 2. Patient with a lumbar paraspinal abscess with Staphylococcus epidermidis, covered with daptomycin; to continue while monitoring his clinical course closely. MMODL / IJN: [id number] /
[2020-12-11] MEDS: methylPREDNISolone SOD SUCCI 125 MG/2 ML VIAL IV SCH ×4 (05:32→23:35)
[2020-12-11 07:28] LABS: Glucose,Whole Blood 176 mg/dL (75-99)
[2020-12-11] MEDS: CITALOPRAM HYDROBROMIDE 20 MG TAB PO SCH (07:56)
[2020-12-11] MEDS: INSULIN ASPART (NovoLOG) 100 UNIT/ML VIAL SQ SCH ×4 (07:56→21:08)
[2020-12-11] MEDS: HEPARIN SODIUM,PORCINE 5,000 UNIT/ML 1 ML VIAL SQ SCH ×2 (07:57→21:08)
[2020-12-11] MEDS: METOPROLOL TARTRATE 25 MG TAB PO SCH ×2 (07:57→08:08)
[2020-12-11] MEDS: FUROSEMIDE 10 MG/ML 4 ML VIAL IV SCH (07:57)
[2020-12-11] MEDS: oxyCODONE-APAP 10-325MG 1 EACH TAB PO PRN ×2 (08:07→21:08)
[2020-12-11] MEDS: BUDESONIDE 1 MG/2 ML NEBU INHALATION SCH ×2 (08:17→20:06)
[2020-12-11] MEDS: IPRATROPIUM-ALBUTEROL 3 ML NEB INHALATION SCH ×4 (08:18→20:06)
[2020-12-11] MEDS: FORMOTEROL FUMARATE 20 MCG/2 ML NEBU INHALATION SCH ×2 (08:18→20:06)
[2020-12-11 09:15] LABS: Basophils # (A) 0.02 X 10*3/uL (0.00-0.10); Basophils % (A) 0.2 %; Eosinophils # (A) 0.04 X 10*3/uL (0.04-0.35); Eosinophils % (A) 0.4 %; HCT 30.7 % (39.6-50.0); HGB 9.4 g/dL (13.0-17.0); Lymphocytes # (A) 0.48 X 10*3/uL (0.90-5.00); Lymphocytes % (A) 5.4 %; MCH 28.7 pg (27.0-32.0); MCHC 30.6 g/dL (32.0-37.0); MCV 93.9 fL (80.0-97.0); Mean Platelet Volume 10.6 fL (9.5-12.2); Monocytes # (A) 0.65 X 10*3/uL (0.20-1.00); Monocytes % (A) 7.3 %; Neutrophils # (A) 7.65 X 10*3/uL (1.80-7.70); Neutrophils % (A) 85.7 %; Platelet Count 243 X 10*3/uL (140-440); RBC 3.27 X 10*6/uL (4.40-5.60); RDW 14.6 % (11.5-14.5); WBC 8.93 X 10*3/uL (4.50-10.00)
--- NOTE | 2020-12-11 10:01 | P.PN ---
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 Patient states that when she had GI bleed she had similar symptoms and presents to ER for evaluation. Patient states that she was having some dark-colored stools during the last 2 days which she attributes to her food intake. Patient also complaining of shortness of breath with exertion. No chest pain. On and off leg swelling currently denied any leg swelling. No fever no chills. No cough or sputum production. No recent illnesses or infections. No recent travel. Chest x-ray showed no evidence of acute pulmonary disease EKG showed normal sinus rhythm with left atrial enlargement. Patient is has history of heart murmur for which patient was seen by cardiology in the past. Laboratory showed hemoglobin level was 6.5 on admission and FOBT positive. BUN 14 creatinine 0.81 potassium 4.5 sodium 136 and blood sugar is 214 and magnesium 1.1 and calcium 10.4 coronavirus PCR is not detected. 12/07/2020 Patient is currently sitting in a chair. Awake alert oriented x3. Patient was started on capsule endoscopy study. Denied any complaints abdominal pain. Hemoglobin is at 7.0 today. No headache or dizziness or lightheadedness. GI is following. Continue insulin sliding scale and blood sugar control. 12/08/2020 Patient is currently resting in the bed comfortably. Denied any complaints of nausea vomiting or abdominal pain or diarrhea. Patient did have brown bowel movement today. Hemoglobin level is 7.1 today. Report pending for capsule endoscopy. GI is on board. Patient was started on oral diet and adjust insulin dose. subjective 12/09/20 this is a pleasant 45 years old male who presents because of fever and generalized macular papular rash , thought to be secondary to vancomycin toxicity , patient was on vancomycin for lumbar abscess , he is a status post laminectomy secondary to staph epidermidis resistant to oxacillin. Also with acute kidney injury and creatinine is 7.8 today with nephrology on the case and possible hemodialysis patient today he has some sleep breathing difficulty , he states that he has s leep apnea but not using BiPAP/CPAP at home. he denies previous diagnosis of COPD however his cutting back his smoking from 1.5 down to 0.5 pack per day , however patient is already on Solu-Medrol 60 mg 4 times a day for his rash He is a little short of breath today. No chest pain or coughing. No abdominal pain. He thinks his rash is the same but it itching improved , although is not resolved completely. Also he is on daptomycin and gentle hydration with normal saline at 50 mL per hour ID team and information technology teacher teams the case 12/10/2020 Patient still with some respiratory distress, he is on BiPAP overnight. This will help decrease air intraorally with scattered wheezing. His still on Solu- Medrol His extremity and trunk rash is better. He is for Right inguinal catheter was placed for hemodialysis. Patient most likely is going for hemodialysis per nephrology team. She denies any other new complaints, no chest pain, he denies abdominal pain, no nausea vomiting or diarrhea. No fever Orthopedic team input is appreciated and they recommended CT of the lumbar spine 12/11/2020 Patient is still short of breath especially with exertion, still have expiratory wheezing with prolonged expiration and continue on Solu-Medrol 60 mg and daptomycin for that His rash is significantly improving and fading away with some scale and he is hemodynamically stable however he needs 6 L of oxygen to keep saturation at 94% WBC is back to normal today at 8.9. remains on daptomycin for lumbar abscess, CAT scan of the lumbar spine ordered by orthopedic team is pending. ESR IV fluid was stopped and now he is currently receiving Lasix 40 mg daily. patient received hemodialysis yesterday and today. Objective - Vital Signs Vital signs: Vital Signs Temp 97.6 F 12/11/20 07:59 Pulse 96 12/11/20 08:34 Resp 20 12/11/20 07:59 BP 123/88 12/11/20 07:59 Pulse Ox 94 L 12/11/20 07:59 Intake & Output 12/10/20 12/11/20 12/11/20 18:59 06:59 18:59 Output Total 200 Balance -200 Output: Urine 200 Other: # Voids 0 1 - Exam -GENERAL: The patient is alert and oriented x3, not in any acute distress. Obese HEENT: Pupils are round and equally reacting to light. EOMI. No scleral icterus. No conjunctival pallor. Normocephalic, atraumatic. No pharyngeal erythema. No thyromegaly. CARDIOVASCULAR: S1 and S2 present. No murmurs, rubs, or gallops. PULMONARY: Chest is clear to auscultation, no wheezing or crackles. ABDOMEN: Soft, nontender, nondistended, normoactive bowel sounds. No palpable organomegaly. -MUSCULOSKELETAL: No joint swelling or deformity. Midline lower back scar, healed with no drainage or open wound EXTREMITIES: No cyanosis, clubbing, or pedal edema. NEUROLOGICAL: Gross neurological examination did not reveal any focal deficits. -SKIN: no petechiae. He has extensive rash, maculopapular previous more confluent on the chest, back and extending into most of the abdomen as well as extremities. No mouth ulcer -Genitalia: Patient refused - Labs CBC & Chem 7: 12/11/20 06:19 12/10/20 05:23 Labs: Abnormal Lab Results - Last 24 Hours (Table) 12/10/20 12/10/20 12/10/20 Range/Units 05:23 05:23 11:40 RBC (4.40-5.60) X 10*6/uL Hgb (13.0-17.0) g/dL Hct (39.6-50.0) % MCHC (32.0-37.0) g/dL RDW (11.5-14.5) % Immature Gran # (0.00-0.04) X 10*3/uL Lymphocytes # (0.90-5.00) X 10*3/uL Sodium 132 L (135-145) mmol/L Potassium 5.7 H (3.5-5.5) mmol/L Carbon Dioxide 17.2 L (21.6-31.8) mmol/L Anion Gap 16.80 H (4.00-12.00) mmol/L BUN 73.0 H (9.0-27.0) mg/dL Creatinine 9.8 H* (0.6-1.5) mg/dL Est GFR (CKD-EPI)AfAm 6.6 L (60.0-200.0) Est GFR (CKD-EPI)NonAf 5.7 L (60.0-200.0) BUN/Creatinine Ratio 7.45 L (12.00-20.00) Ratio Glucose 148 H (70-110) mg/dL POC Glucose (mg/dL) 217 H (75-99) mg/dL Calcium 7.2 L (8.7-10.3) mg/dL Phosphorus 7.8 H (2.4-5.1) mg/dL C-Reactive Protein 17.8 H (0.0-0.8) mg/dL 12/10/20 12/10/20 12/11/20 Range/Units 16:35 20:40 06:19 RBC 3.27 L (4.40-5.60) X 10*6/uL Hgb 9.4 L (13.0-17.0) g/dL Hct 30.7 L (39.6-50.0) % MCHC 30.6 L (32.0-37.0) g/dL RDW 14.6 H (11.5-14.5) % Immature Gran # 0.09 H (0.00-0.04) X 10*3/uL Lymphocytes # 0.48 L (0.90-5.00) X 10*3/uL Sodium (135-145) mmol/L Potassium (3.5-5.5) mmol/L Carbon Dioxide (21.6-31.8) mmol/L Anion Gap (4.00-12.00) mmol/L BUN (9.0-27.0) mg/dL Creatinine (0.6-1.5) mg/dL Est GFR (CKD-EPI)AfAm (60.0-200.0) Est GFR (CKD-EPI)NonAf (60.0-200.0) BUN/Creatinine Ratio (12.00-20.00) Ratio Glucose (70-110) mg/dL POC Glucose (mg/dL) 180 H 194 H (75-99) mg/dL Calcium (8.7-10.3) mg/dL Phosphorus (2.4-5.1) mg/dL C-Reactive Protein (0.0-0.8) mg/dL 12/11/20 Range/Units 07:26 RBC (4.40-5.60) X 10*6/uL Hgb (13.0-17.0) g/dL Hct (39.6-50.0) % MCHC (32.0-37.0) g/dL RDW (11.5-14.5) % Immature Gran # (0.00-0.04) X 10*3/uL Lymphocytes # (0.90-5.00) X 10*3/uL Sodium (135-145) mmol/L Potassium (3.5-5.5) mmol/L Carbon Dioxide (21.6-31.8) mmol/L Anion Gap (4.00-12.00) mmol/L BUN (9.0-27.0) mg/dL Creatinine (0.6-1.5) mg/dL Est GFR (CKD-EPI)AfAm (60.0-200.0) Est GFR (CKD-EPI)NonAf (60.0-200.0) BUN/Creatinine Ratio (12.00-20.00) Ratio Glucose (70-110) mg/dL POC Glucose (mg/dL) 176 H (75-99) mg/dL Calcium (8.7-10.3) mg/dL Phosphorus (2.4-5.1) mg/dL C-Reactive Protein (0.0-0.8) mg/dL Microbiology - Last 24 Hours (Table) 12/07/20 16:02 Blood Culture - Preliminary Blood No Growth after 72 hours Assessment and Plan Assessment: Nonoliguric Acute kidney injury due to ATN secondary to hypotension and toxicity to vancomycin.is getting hemodialysis Ongoing and recent lumbar abscess status post laminectomy secondary to staph epidermidis resistant to oxacillin Acute COPD exacerbation and possible obstructive sleep apnea, continue with CPAP/BiPAP and steroids Maculopapular rash, improving Lactic acidosis, resolved Mild Hypovolemic hyponatremia Recent L4- S1 fusion surgery and revision and incision and drainage with antibiotic spacer. Hypertension currently not hypertensive Morbid obesity with BMI 41.6 Possible history of obstructive sleep apnea as per patient, not on CPAP and BiPAP Plan: This is a pleasant 45 years old male who presents with vancomycin toxicity, lumbar abscess, ACI rash. Continue with daptomycin as per ID team re commendation. Continue with Solu-Medrol . 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 Labs and medication were reviewed.. Continue same treatment. Continue with symptomatic treatment. Resume home medication. Monitor lytes and vitals. DVT and GI prophylaxis. Further recommendationsas per clinical course of the patient DVT prophylaxis: Subcutaneous heparin GI Prophylaxis: Pepcid PT/OT: [facility] versus inpatient rehab Prognosis is guarded
--- NOTE | 2020-12-11 10:28 | P.PN ---
Subjective Progress Note Date: 12/11/20 Principal diagnosis: Acute kidney injury, history of recent lumbar surgeries 2, other medical comorbidities Patient was evaluated today at bedside, he is currently receiving dialysis, the instrumentation and controls technician in the room with him. Patient is off of BiPAP at this time, he is still requiring O2 via nasal cannula. Patient's rashes continue to improve. His white blood cell count is returned today. CRP and sed rate is scheduled for redraw tomorrow. Patient was again difficult to arouse today to assess physical exam. He is being followed at this time by internal medicine, nephrology, pulmonology, infectious disease and orthopedic service. Objective - Vital Signs Vital signs: Vital Signs Temp 97.6 F 12/11/20 07:59 Pulse 96 12/11/20 08:34 Resp 20 12/11/20 07:59 BP 123/88 12/11/20 07:59 Pulse Ox 94 L 12/11/20 07:59 Intake & Output 12/10/20 12/11/20 12/11/20 18:59 06:59 18:59 Output Total 200 Balance -200 Output: Urine 200 Other: # Voids 0 1 - Exam Gen: Exam limited due to patient's current mental state Integument: Erythematous macular papular rash is improving There is no active drainage visualized from the wound, there are no obvious openings in the skin. There is no areas of fluctuance appreciated on exam. No arousable stimuli is appreciated with palpation throughout the midline and paravertebral regions of the lumbar spine ROM: Passive motion of the bilateral lower extremities was assessed with hip flexion, knee flexion, knee extension, straight leg raise. No painful stimuli was observed. Sensory Exam: Not assessed Motor: Not assessed Reflexes: Not assessed - Labs CBC & Chem 7: 12/11/20 06:19 12/10/20 05:23 Labs: Abnormal Lab Results - Last 24 Hours (Table) 12/10/20 12/10/20 12/10/20 Range/Units 05:23 11:40 16:35 RBC (4.40-5.60) X 10*6/uL Hgb (13.0-17.0) g/dL Hct (39.6-50.0) % MCHC (32.0-37.0) g/dL RDW (11.5-14.5) % Immature Gran # (0.00-0.04) X 10*3/uL Lymphocytes # (0.90-5.00) X 10*3/uL POC Glucose (mg/dL) 217 H 180 H (75-99) mg/dL Phosphorus 7.8 H (2.4-5.1) mg/dL 12/10/20 12/11/20 12/11/20 Range/Units 20:40 06:19 07:26 RBC 3.27 L (4.40-5.60) X 10*6/uL Hgb 9.4 L (13.0-17.0) g/dL Hct 30.7 L (39.6-50.0) % MCHC 30.6 L (32.0-37.0) g/dL RDW 14.6 H (11.5-14.5) % Immature Gran # 0.09 H (0.00-0.04) X 10*3/uL Lymphocytes # 0.48 L (0.90-5.00) X 10*3/uL POC Glucose (mg/dL) 194 H 176 H (75-99) mg/dL Phosphorus (2.4-5.1) mg/dL Microbiology - Last 24 Hours (Table) 12/07/20 16:02 Blood Culture - Preliminary Blood No Growth after 72 hours Assessment and Plan Assessment: Status post revision decompression evacuation of epidural phlegmon evacuation L4 5 and L5-S1 osteo-discitis with L4-S1 fusion and antibiotic spacer placement Skin rash, antibiotic-related Acute kidney failure Other medical comorbidities Plan: We'll continue to follow patient's labs, his CRP and sed rate are scheduled to be redrawn tomorrow. His white blood cell count has returned to normal levels. Incision remains stable at this time with no acute changes, we'll continue daily dressing changes Recommend physical therapy and occupational therapy evaluation as patient's medical status is to improve GI and DVT prophylaxis per primary medical service We'll continue to follow patient during inpatient stay Please don't hesitate to contact us with any questions regarding this patient Time with Patient: Less than 30
[2020-12-11 10:36] LABS: African American GFR (CKD) 8.3 (60.0-200.0); BUN/Creat Ratio 8.02 Ratio (12.00-20.00); Calcium 7.3 mg/dL (8.7-10.3); Non-African American GFR(CKD) 7.2 (60.0-200.0); Potassium 4.7 mmol/L (3.5-5.5)
[2020-12-11 11:39] LABS: Glucose,Whole Blood 158 mg/dL (75-99)
--- NOTE | 2020-12-11 12:05 | P.PN ---
Subjective Progress Note Date: 12/11/20 Principal diagnosis: Acute hypoxic respiratory failure, related to obstructive sleep apnea, fluid overload, acute kidney injury This is a 45-year-old male who presented to the emergency department on September 06 complaining of fever, and a rash. He is 15 days postop revision of L4-L5 with L4 through S1 fusion, and placement of antibiotic spacer. We actually know this patient because he came back from the operating room initially to the intensive care unit on the ventilator. He was quite rambunctious, and the patient was eventually extubated without a formal spontaneous breathing trial. The patient was apparently started on vancomycin 3 times a day for osteomyelitis. The patient presented to the emergency room on the with 2 days of fever and rash. The rash looks like a red man syndrome rash. It was extending in the back of his neck and extending down his whole back and sides of his chest. The surgery was done by Dr. Jama, and he recently saw him in the office. We were called in today because there was an "A" team called on the patient. The patient was apparently manifesting some respiratory distress. One of the charge nurses from the ICU, thought the patient was just a deep sleeper and probably suffering from some sleep apnea syndrome. The patient apparently does have a history of sleep apnea, but does not wear his CPAP/BiPAP device. She did not feel like the patient needed to be transferred down to the intensive care unit. Anyway, and we saw the patient, the patient was a bit sleepy, we recommended Solu-Medrol, Perforomist, and Pulmicort updrafts, and DuoNeb 4 times a day and when necessary. In addition, a blood gas was ordered but I didn't think it was necessary. Finally, we recommended BiPAP at 12/5 and 50%. We encouraged the patient to wear it until he started doing better. We'll be went to go see him, his saturations were in the low 90s, and at that time, he was on 6 L nasal cannula. He did arouse and respond appropriately. On 12/10/2020 patient seen in follow-up. He remains on BiPAP support, tolerating it well, resting comfortably in bed, BiPAP pressures of 12 and 5 and 50%, his lung sounds are diminished, he is a urine output has been diminished, his renal function continues to worsen, today's BUN is up to 73 and creatinine is 9.8 with potassium of 5.7, temporary emergent hemodialysis catheter was pl aced in the femoral area, and patient will have his hemodialysis treatment today, the rest of his blood work has been reviewed, showing white blood cell count of 15, hemoglobin is 11. His urinalysis showed possibility of a urinary tract infection, his blood and urine cultures have been negative, gastric chest x-ray showed bilateral patchy airspace disease, low lung volumes. Patient remains on daptomycin, and treatments, IV steroids. He is on IV Lasix 40 mg daily. Has not had significant diuresis On 12/11/2020 patient seen in follow-up, he is currently off BiPAP support, he is on 6 L of oxygen, he had hemodialysis treatment yesterday with removal of 1 L of fluid, and today he is having another session of hemodialysis with a goal of removing 2 L, he is still be drowsy, but more responsive to verbal stimulation, he has had no fever or chills, no recent chest x-ray. Remains on IV diuretics with Lasix 40 mg daily, IV steroids and breathing treatments. Continues on labs reviewed, slight improvement in renal profile, with B1 is 65 and creatinine of 8.1, potassium is 4.7. She continues on daptomycin, vancomycin has been discontinued, he is on IV steroids, and Benadryl for persistent rash possibly related to vancomycin Objective - Vital Signs Vital signs: Vital Signs Temp 97.4 F L 12/11/20 11:24 Pulse 89 12/11/20 11:34 Resp 20 12/11/20 11:24 BP 114/82 12/11/20 11:24 Pulse Ox 94 L 12/11/20 07:59 Intake & Output 12/10/20 12/11/20 12/11/20 18:59 06:59 18:59 Output Total 200 2500 Balance -200 -2500 Output: Urine 200 Hemodialysis 2500 Other: # Voids 0 1 - Exam GENERAL EXAM: Lethargic but arousable, 45 white male, resting in bed, on BiPAP with pressures of 12 and 5, and FiO2 of 50% comfortable in no apparent distress. HEAD: Normocephalic/atraumatic. EYES: Normal reaction of pupils, equal size. Conjunctiva pink, sclera white. NOSE: Clear with pink turbinates. THROAT: No erythema or exudates. NECK: No masses, no JVD, no thyroid enlargement, no adenopathy. CHEST: No chest wall deformity. Symmetrical expansion. LUNGS: Equal air entry with no crackles, wheeze, rhonchi or dullness. CVS: Regular rate and rhythm, normal S1 and S2, no gallops, no murmurs, no rubs ABDOMEN: Soft, nontender. No hepatosplenomegaly, normal bowel sounds, no guarding or rigidity. EXTREMITIES: No clubbing, no edema, no cyanosis, 2+ pulses and upper and lower extremities. MUSCULOSKELETAL: Muscle strength and tone normal. SPINE: No scoliosis or deformity SKIN: Patient has significant red confluent rash all over patient's face, s houlders, neck, abdomen, back and upper thighs CENTRAL NERVOUS SYSTEM: A 30, on BiPAP support, No focal deficits, tone is normal in all 4 extremities. - Labs CBC & Chem 7: 12/11/20 06:19 12/11/20 06:19 Labs: Abnormal Lab Results - Last 24 Hours (Table) 12/10/20 12/10/20 12/10/20 Range/Units 05:23 16:35 20:40 RBC (4.40-5.60) X 10*6/uL Hgb (13.0-17.0) g/dL Hct (39.6-50.0) % MCHC (32.0-37.0) g/dL RDW (11.5-14.5) % Immature Gran # (0.00-0.04) X 10*3/uL Lymphocytes # (0.90-5.00) X 10*3/uL Carbon Dioxide (21.6-31.8) mmol/L Anion Gap (4.00-12.00) mmol/L BUN (9.0-27.0) mg/dL Creatinine (0.6-1.5) mg/dL Est GFR (CKD-EPI)AfAm (60.0-200.0) Est GFR (CKD-EPI)NonAf (60.0-200.0) BUN/Creatinine Ratio (12.00-20.00) Ratio Glucose (70-110) mg/dL POC Glucose (mg/dL) 180 H 194 H (75-99) mg/dL Calcium (8.7-10.3) mg/dL Phosphorus 7.8 H (2.4-5.1) mg/dL 12/11/20 12/11/20 12/11/20 Range/Units 06:19 06:19 07:26 RBC 3.27 L (4.40-5.60) X 10*6/uL Hgb 9.4 L (13.0-17.0) g/dL Hct 30.7 L (39.6-50.0) % MCHC 30.6 L (32.0-37.0) g/dL RDW 14.6 H (11.5-14.5) % Immature Gran # 0.09 H (0.00-0.04) X 10*3/uL Lymphocytes # 0.48 L (0.90-5.00) X 10*3/uL Carbon Dioxide 20.0 L (21.6-31.8) mmol/L Anion Gap 16.00 H (4.00-12.00) mmol/L BUN 65.0 H (9.0-27.0) mg/dL Creatinine 8.1 H* (0.6-1.5) mg/dL Est GFR (CKD-EPI)AfAm 8.3 L (60.0-200.0) Est GFR (CKD-EPI)NonAf 7.2 L (60.0-200.0) BUN/Creatinine Ratio 8.02 L (12.00-20.00) Ratio Glucose 178 H (70-110) mg/dL POC Glucose (mg/dL) 176 H (75-99) mg/dL Calcium 7.3 L (8.7-10.3) mg/dL Phosphorus (2.4-5.1) mg/dL 12/11/20 Range/Units 11:38 RBC (4.40-5.60) X 10*6/uL Hgb (13.0-17.0) g/dL Hct (39.6-50.0) % MCHC (32.0-37.0) g/dL RDW (11.5-14.5) % Immature Gran # (0.00-0.04) X 10*3/uL Lymphocytes # (0.90-5.00) X 10*3/uL Carbon Dioxide (21.6-31.8) mmol/L Anion Gap (4.00-12.00) mmol/L BUN (9.0-27.0) mg/dL Creatinine (0.6-1.5) mg/dL Est GFR (CKD-EPI)AfAm (60.0-200.0) Est GFR (CKD-EPI)NonAf (60.0-200.0) BUN/Creatinine Ratio (12.00-20.00) Ratio Glucose (70-110) mg/dL POC Glucose (mg/dL) 158 H (75-99) mg/dL Calcium (8.7-10.3) mg/dL Phosphorus (2.4-5.1) mg/dL Microbiology - Last 24 Hours (Table) 12/07/20 16:02 Blood Culture - Preliminary Blood No Growth after 72 hours Assessment and Plan Plan: Assessment: Acute on chronic hypoxemic respiratory failure, likely secondary to bronchospasm, as well as sleep apnea syndrome, noncompliant with CPAP/BiPAP. Acute kidney injury, fluid overload, hyperkalemia Rule out pickwickian syndrome. Obesity. Possible underlying sepsis secondary to osteomyelitis. Postop day #18, status post L4-L5 vision, with L4 through S1 fusion. Also, there was placement of antibiotics spacer. Diffuse truncal rash, possibly consistent with "red man" syndrome secondary to vancomycin infusion. History of hypertension. History of chronic back pain. Plan: Continue current medical treatment, continue IV steroids, will obtain follow-up chest x-ray tomorrow, weaning FiO2, BiPAP support as needed, patient is bronchospastic, will continue nebulized treatments and steroids. Antibiotics Per ID service recommendations, nephrology is following, patient will have another hemodialysis treatment today I performed a history & physical examination of the patient and discussed their management with my nurse practitioner, Lyndsey Witt. I reviewed the nurse practitioner's note and agree with the documented findings and plan of care. Lung sounds are positive for diffuse wheezes throughout the lung valentin. The findings and the impression was discussed with the patient. I attest to the documentation by the nurse practitioner. Time with Patient: Less than 30
--- NOTE | 2020-12-11 13:02 | PN ---
PROGRESS NOTE Patient is seen for followup for acute kidney injury secondary to vancomycin toxicity, NSAIDS, hypotension. Patient remains oliguric. He has had progressively advanced renal failure quite rapidly. Vancomycin level was at 60. He is oliguric and was started on dialysis yesterday. Patient is seen today again on dialysis. Mentation was somewhat improved from yesterday; however, patient remains quite lethargic. PHYSICAL EXAMINATION: On examination today, blood pressure 114/82, heart rate 92 per minute. He is afebrile. EXAMINATION OF THE HEART: S1, S2. EXAMINATION OF THE LUNGS: Bilateral breath sounds are heard. Abdomen is soft, nontender, obese. Examination of lower extremities shows edema 1+ bilaterally. Patient has generalized rash all over with generalized erythema. 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 He is lethargic and sleepy. He follows commands, however. LABS: Labs show sodium 137, potassium 4.7, BUN 65, serum creatinine 8.1, hemoglobin 9.4 g/dL. ASSESSMENT: 1. Acute kidney injury, multifactorial, mostly vancomycin toxicity associated with also NSAIDs and hypotension in the setting of use of angiotensin receptor blockers currently oliguric and hemodialysis dependent. Patient will be dialyzed on a daily basis for now. Continue to avoid all nephrotoxic agents. 2. Volume overload, increase UF with hemodialysis today and then again in a.m. 3. Mental status changes associated with uremia. 4. Lumbar abscess with wound culture growing Staph epi which was resistant to oxacillin, being followed by ID. PLAN: Repeat hemodialysis in a.m., discontinue IV fluids, increase UF and encourage increased oral intake. Continue to monitor urine output. MMODL / IJN: [id number] /
--- NOTE | 2020-12-11 15:13 | CDI ---
Documentation Clarification Form Date: 12/11/2020 02:42:00 PM From: Evonne Acevedo RN, CCDS Admit Date: 12/07/2020 04:34:00 PM Patient Name: Buzz Mukherjee Visit Number: [id number] Discharge Date: ATTENTION: The Clinical Documentation Specialists (CDI) and [facility] Coding Staff appreciate your assistance in clarifying documentation. Please respond to the clarification below the line at the bottom and electronically sign. The CDI & [facility] Coding staff will review the response and follow-up if needed. Please note: Queries are made part of the Legal Health Record. If you have any questions, please contact the author of this message via ITS. Dr. Alpesh Cisse The diagnosis sepsis was documented in the ED evaluation and assessment on 12/07/20, but is not noted in subsequent documentation. Please render your opinion on the sepsis diagnosis. History/Risk Factors: L4-5 osteo-discitis with fusion, Osteomyelitis, Hypertension Clinical Indicators: 45-year-old male 15 days postop revision of l4-5 osteo- discitis with fusion and antibiotic spacer placement. He present on 12/07 with intermittent fevers for past 2 days. He has erythematous rash extending from the back of his neck down his entire back, extend to the posterior bilateral arm and upper glutes. 12/07 vital signs on admission 81/49 125 20 98.1, @15:17 Vital signs: 111/77 114 103.1, 16:09 vital signs: 89/64 113 18 102.8 93 % RA. His has ongoing treatment for lumbar abscess. 12/07 labs: WBC 11.3, Lactic acid 2.8, Creatinine 3.99, CRP 145, Vanco trough 60.1 12/07 EKG: Sinus tachycardia vent rate 115 12/07 ED Assessment: Patient arrived febrile, tachycardia, hypotensive, lactic acid 2.8. Given 3/L bolus of fluid. Patient has known osteomyelitis, currently IV antibiotics. Patient will be admitted for sepsis. 12/08 Nephrology consult: Acute kidney injury secondary to vancomycin toxicity. Staphylococcus epidermidis in wound culture on 11/19/20 from back repeat blood culture negative. 12/08 ID Consult: Patient admitted with fever, source likely generalized maculopapular rash and more likely related to Vancomycin which will be discontinued. Treatment: Deptomycin 800 MG IVPB Q 48 HRS .9NS IV Bolus x3 Solu-Medrol 60 MG IV Q6 HRS Monitor electrolytes daily monitor renal function, BUN CR daily, Please clarify if the sepsis was: Present/active this admission Treated and resolved this admission Ruled out Other, please specify Clinically unable to determine (Last Query Form Revision: June 2019) sepsis present on admission due to leukocytosis and fever MTDD
--- NOTE | 2020-12-11 15:24 | OP ---
DATE OF SERVICE: 12/11/2020 OPERATIVE REPORT PREOPERATIVE DIAGNOSIS: Acute on chronic renal failure. PROCEDURE PERFORMED: Ultrasound-guided dialysis catheter placement via right femoral approach. PROCEDURE DESCRIPTION: The patient was brought to the director geophysical laboratory. Right groin was prepped and drapes were applied in a sterile manner. Ultrasound-guided micropuncture was introduced into the right femoral vein. Micropuncture guidewire was passed and a 4-Cypriot dilator advanced on top of the guidewire. Then we passed a regular guidewire and then we passed the dilator. A 20 cm dialysis catheter was advanced on top of the guidewire without any resistance. Flushed with heparin saline and hep-locked and secured with 0 nylon. Dressing was applied. Patient tolerated the procedure well. MMODL / IJN: [id number] / MTDD
[2020-12-11 16:34] LABS: Glucose,Whole Blood 177 mg/dL (75-99)
--- NOTE | 2020-12-11 19:52 | CONS ---
CONSULTATION This patient is a 45-year-old gentleman. I was consulted for urgent dialysis catheter placement. The patient was on vancomycin and got a macular rash all over the body and had kidney failure and macular rash on the chest, abdomen and upper extremity. MEDICAL HISTORY: History of hypertension, controlled with medication. SURGICAL HISTORY: Patient had back surgery done recently and patient had laminectomy x3. PHYSICAL EXAMINATION: NECK: Supple. Trachea central. CHEST: Clear. ABDOMEN: Soft. The patient has a macular rash all over the body. Femoral pulses are 1+. PLAN: Placement of dialysis catheter. Risks and complications were discussed. MMODL / IJN: [id number] /
[2020-12-11 20:50] LABS: Glucose,Whole Blood 186 mg/dL (75-99)
--- NOTE | 2020-12-11 22:26 | PN ---
PROGRESS NOTE DATE OF SERVICE: 12/11/2020 REASON FOR FOLLOWUP: 1. Drug rash. 2. Lumbar paraspinal abscess. INTERVAL HISTORY: The patient is currently afebrile. The patient is breathing comfortably. The patient denies having any chest pain or shortness of breath or cough. No abdominal pain or diarrhea. PHYSICAL EXAMINATION: Blood pressure 171/86, pulse of 91, temperature 97.9. He is 90% on 6 L nasal cannula. General description is a middle-aged male lying in bed in no distress. RESPIRATORY SYSTEM: Unlabored breathing. Decreased breath sounds in the bases. No wheeze. HEART: S1, S2. Regular rate and rhythm. ABDOMEN: Soft. No tenderness. LABS: Hemoglobin is 9.4, white count 8.9, BUN of 65, creatinine 8.1. DIAGNOSTIC IMPRESSION AND PLAN: 1. Patient with a drug rash secondary to vancomycin. That has been discontinued. 2. Patient with a lumbar paraspinal abscess, covered with daptomycin; to continue while monitoring his clinical course closely. Continue with supportive care. MMODL / IJN: [id number] /
[2020-12-12] MEDS: methylPREDNISolone SOD SUCCI 125 MG/2 ML VIAL IV SCH ×2 (05:20→12:19)
[2020-12-12] MEDS: IPRATROPIUM-ALBUTEROL 3 ML NEB INHALATION SCH ×4 (07:43→22:05)
[2020-12-12] MEDS: FORMOTEROL FUMARATE 20 MCG/2 ML NEBU INHALATION SCH ×2 (07:43→22:04)
[2020-12-12] MEDS: BUDESONIDE 1 MG/2 ML NEBU INHALATION SCH ×2 (07:43→22:04)
[2020-12-12 07:51] LABS: Glucose,Whole Blood 168 mg/dL (75-99)
[2020-12-12 08:08] LABS: Basophils % (A) 0 %; Eosinophils # (A) 0.1 k/uL (0-0.7); Eosinophils % (A) 1 %; HCT 37.5 % (39.0-53.0); HGB 12.3 gm/dL (13.0-17.5); Hypochromasia Slight; Lymphocytes # (A) 0.5 k/uL (1.0-4.8); Lymphocytes % (A) 6 %; MCH 29.8 pg (25.0-35.0); MCHC 32.8 g/dL (31.0-37.0); MCV 90.9 fL (80.0-100.0); Mean Platelet Volume 7.7; Monocytes # (A) 0.4 k/uL (0-1.0); Monocytes % (A) 5 %; Neutrophils % (A) 87 %; Platelet Count 266 k/uL (150-450); RBC 4.12 m/uL (4.30-5.90); RDW 14.3 % (11.5-15.5); WBC 8.1 k/uL (3.8-10.6)
[2020-12-12] MEDS: METOPROLOL TARTRATE 25 MG TAB PO SCH ×2 (08:17→08:26)
[2020-12-12] MEDS: FUROSEMIDE 10 MG/ML 4 ML VIAL IV SCH (08:17)
[2020-12-12] MEDS: INSULIN ASPART (NovoLOG) 100 UNIT/ML VIAL SQ SCH ×4 (08:17→20:39)
[2020-12-12] MEDS: HEPARIN SODIUM,PORCINE 5,000 UNIT/ML 1 ML VIAL SQ SCH ×2 (08:18→20:10)
[2020-12-12] MEDS: CITALOPRAM HYDROBROMIDE 20 MG TAB PO SCH (08:18)
--- NOTE | 2020-12-12 09:58 | XR ---
EXAMINATION TYPE: XR chest 1V DATE OF EXAM: 12/12/2020 COMPARISON: 12/09/2020 HISTORY: Shortness of breath TECHNIQUE: Single frontal view of the chest is obtained. FINDINGS: Diffuse interstitial pattern. Heart size mildly prominent. No pleural effusion or pneumoth orax. Osseous structures stable. IMPRESSION: Correlate for a diffuse interstitial pneumonia.
[2020-12-12 10:37] LABS: ALT 43 U/L (4-49); AST 35 U/L (17-59); African American GFR (CKD) 9 (>60 ml/min/1.73 sqM); Albumin 4.1 g/dL (3.5-5.0); Albumin/Globulin Ratio 1.4; Alkaline Phosphatase 93 U/L (38-126); Anion Gap 16 mmol/L; Blood Urea Nitrogen 58 mg/dL (9-20); C Reactive Protein 85.3 mg/L (<10.0); Calcium 8.5 mg/dL (8.4-10.2); Carbon Dioxide 23 mmol/L (22-30); Chloride 100 mmol/L (98-107); Globulin 2.9 g/dL; Glucose 161 mg/dL (74-99); Non-African American GFR(CKD) 8 (>60 ml/min/1.73 sqM); Potassium 4.9 mmol/L (3.5-5.1); Sodium 139 mmol/L (137-145); Total Bilirubin 0.6 mg/dL (0.2-1.3)
[2020-12-12 11:41] LABS: Glucose,Whole Blood 118 mg/dL (75-99)
--- NOTE | 2020-12-12 12:05 | P.PN ---
Subjective Progress Note Date: 12/12/20 HISTORY OF PRESENT ILLNESS This is a 45-year-old male patient treated for lumbar paraspinal abscess status post decompression and evacuation of an epidural phlegmon evacuation of L4 5 and L5-S1 osteo-discitis with L4 S1 fusion and antibiotic spacer placement. He is also treated for drug rash and acute kidney injury secondary to vancomycin which has been discontinued. Patient states today that he is having trouble breathing. He denies any cough, chest pain. No abdominal pain, no nausea vomiting or diarrhea. He is undergoing dialysis at this time with plan for removal of 2-1/2 L. Repeat chest x-ray reveals diffuse interstitial pneumonia. Patient was seen by pulmonary medicine with plan to transfer into the intensive care unit today. Pulse ox 98% on 6 L nasal cannula, heart rate in the 70s, blood pressure 162/113, afebrile. Repeat blood work reveals BUN 58 and creatinine 7.35. WBC 8.1, hemoglobin 12.3. C-reactive protein 85.3. PHYSICAL EXAMINATION Gen: This is overly obese 45-year-old male patient. He is resting in bed with mild to moderate respiratory distress, accessory muscle usage HEENT: Head is atraumatic, normocephalic. Pupils equal, round. Sclerae is anicteric. NECK: Supple. No JVD. No lymphadenopathy. LUNGS: No wheezing. Mild intercostal retractions. HEART: Regular rate and rhythm. No murmur. ABDOMEN: Soft. Bowel sounds are present. No masses. No tenderness. EXTREMITIES: No pedal edema. No calf tenderness. NEUROLOGICAL: Patient is awake, alert and oriented x3. ASSESSMENT Paraspinal abscess Drug rash secondary to vancomycin Acute kidney injury secondary to vancomycin Possible pneumonia PLAN Vancomycin was discontinued Continue daptomycin 800 mg IV piggyback every 48 hours Further recommendations as patient progresses. The above dictated assessment and findings were discussed with Dr. Gomez. The impression and plan of care have been directed as dictated. Genesis Ignacio nurse practitioner acting as scribe for Dr. Gomez. Objective - Vital Signs Vital signs: Vital Signs Temp 97.7 F 12/12/20 08:00 Pulse 78 12/12/20 11:13 Resp 24 12/12/20 08:00 BP 162/113 12/12/20 08:00 Pulse Ox 98 12/12/20 08:00 Intake & Output 12/11/20 12/12/20 12/12/20 18:59 06:59 18:59 Intake Total 50 Output Total 2500 300 Balance -2500 -300 50 Intake: Intake, IV Titration 50 Amount DAPTOmycin 800 mg In 50 Sodium Chloride 0.9% 50 ml @ 100 mls/hr IVPB Q48H ZECHARIAH Rx#:[id number] Output: Urine 300 Hemodialysis 2500 Other: # Voids 1 - Labs CBC & Chem 7: 12/12/20 07:45 12/12/20 07:45 Labs: Abnormal Lab Results - Last 24 Hours (Table) 12/11/20 12/11/20 12/11/20 Range/Units 11:38 16:32 20:48 RBC (4.30-5.90) m/uL Hgb (13.0-17.5) gm/dL Hct (39.0-53.0) % Lymphocytes # (1.0-4.8) k/uL BUN (9-20) mg/dL Creatinine (0.66-1.25) mg/dL Glucose (74-99) mg/dL POC Glucose (mg/dL) 158 H 177 H 186 H (75-99) mg/dL C-Reactive Protein (<10.0) mg/L 12/12/20 12/12/20 12/12/20 Range/Units 07:45 07:45 07:49 RBC 4.12 L (4.30-5.90) m/uL Hgb 12.3 L (13.0-17.5) gm/dL Hct 37.5 L (39.0-53.0) % Lymphocytes # 0.5 L (1.0-4.8) k/uL BUN 58 H (9-20) mg/dL Creatinine 7.35 H* (0.66-1.25) mg/dL Glucose 161 H (74-99) mg/dL POC Glucose (mg/dL) 168 H (75-99) mg/dL C-Reactive Protein 85.3 H (<10.0) mg/L Microbiology - Last 24 Hours (Table) 12/07/20 16:02 Blood Culture - Preliminary Blood No Growth after 96 hours
[2020-12-12 12:17] LABS: ABG Base Excess 4.7 mmol/L; ABG HCO3 28 mmol/L (21-25); ABG Oxygen Saturation 87.3 % (94-97); ABG PCO2 37 mmHg (35-45); ABG PH 7.49 (7.35-7.45); ABG TCO2 29 mmol/L (19-24); Allen Test Performed? Yes
[2020-12-12 12:25] LABS: ABG PO2 48 mmHg (83-108)
--- NOTE | 2020-12-12 12:39 | P.PN ---
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 Patient states that when she had GI bleed she had similar symptoms and presents to ER for evaluation. Patient states that she was having some dark-colored stools during the last 2 days which she attributes to her food intake. Patient also complaining of shortness of breath with exertion. No chest pain. On and off leg swelling currently denied any leg swelling. No fever no chills. No cough or sputum production. No recent illnesses or infections. No recent travel. Chest x-ray showed no evidence of acute pulmonary disease EKG showed normal sinus rhythm with left atrial enlargement. Patient is has history of heart murmur for which patient was seen by cardiology in the past. Laboratory showed hemoglobin level was 6.5 on admission and FOBT positive. BUN 14 creatinine 0.81 potassium 4.5 sodium 136 and blood sugar is 214 and magnesium 1.1 and calcium 10.4 coronavirus PCR is not detected. 12/07/2020 Patient is currently sitting in a chair. Awake alert oriented x3. Patient was started on capsule endoscopy study. Denied any complaints abdominal pain. Hemoglobin is at 7.0 today. No headache or dizziness or lightheadedness. GI is following. Continue insulin sliding scale and blood sugar control. 12/08/2020 Patient is currently resting in the bed comfortably. Denied any complaints of nausea vomiting or abdominal pain or diarrhea. Patient did have brown bowel movement today. Hemoglobin level is 7.1 today. Report pending for capsule endoscopy. GI is on board. Patient was started on oral diet and adjust insulin dose. subjective 12/09/20 this is a pleasant 45 years old male who presents because of fever and generalized macular papular rash , thought to be secondary to vancomycin toxicity , patient was on vancomycin for lumbar abscess , he is a status post laminectomy secondary to staph epidermidis resistant to oxacillin. Also with acute kidney injury and creatinine is 7.8 today with nephrology on the case and possible hemodialysis patient today he has some sleep breathing difficulty , he states that he has s leep apnea but not using BiPAP/CPAP at home. he denies previous diagnosis of COPD however his cutting back his smoking from 1.5 down to 0.5 pack per day , however patient is already on Solu-Medrol 60 mg 4 times a day for his rash He is a little short of breath today. No chest pain or coughing. No abdominal pain. He thinks his rash is the same but it itching improved , although is not resolved completely. Also he is on daptomycin and gentle hydration with normal saline at 50 mL per hour ID team and toys inspector teams the case 12/10/2020 Patient still with some respiratory distress, he is on BiPAP overnight. This will help decrease air intraorally with scattered wheezing. His still on Solu- Medrol His extremity and trunk rash is better. He is for Right inguinal catheter was placed for hemodialysis. Patient most likely is going for hemodialysis per nephrology team. She denies any other new complaints, no chest pain, he denies abdominal pain, no nausea vomiting or diarrhea. No fever Orthopedic team input is appreciated and they recommended CT of the lumbar spine 12/11/2020 Patient is still short of breath especially with exertion, still have expiratory wheezing with prolonged expiration and continue on Solu-Medrol 60 mg and daptomycin for that His rash is significantly improving and fading away with some scale and he is hemodynamically stable however he needs 6 L of oxygen to keep saturation at 94% WBC is back to normal today at 8.9. remains on daptomycin for lumbar abscess, CAT scan of the lumbar spine ordered by orthopedic team is pending. ESR IV fluid was stopped and now he is currently receiving Lasix 40 mg daily. patient received hemodialysis yesterday and today. 12/12/2020 Today patient was more confused and he still the Neck and dyspneic with extensive expiratory wheezing. His saturation was low 90s, however his oxygen requirement increased to 15 L via nonrebreather. With ABG showing pH of 7.49 slightly elevated and low pO2 and 48 and pCO2 of 28. Chest x-ray: Showing diffuse bilateral infiltrates suspicious for diffuse pneumonia which is is unl ikely and most likely patient has fluid overload. Labs showing normal WBC at 8.1K, hemoglobin 12.3. BMP is stable with normal electrolytes. Creatinine is expected to be high 7.3. Sugar control 118-186. Liver enzymes not elevated. Patient remains on daptomycin, Solu-Medrol 60 mg and Lasix 40 mg IV daily. Most likely patient will go to the intensive care unit for pulmonary team recommendations Review of systems CONSTITUTIONAL: No fever, no malaise, no fatigue. HEENT: No recent visual problems or hearing problems. Denied any sore throat. CARDIOVASCULAR: No orthopnea, PND, no palpitations, no syncope. -PULMONARY: Positive for shortness of breath, no cough, no hemoptysis. GASTROINTESTINAL: No diarrhea, no nausea, no vomiting, no abdominal pain. Normoactive bowel sounds. NEUROLOGICAL: No headaches, no weakness, no numbness. Active Medications Generic Name Dose Route Start Last Admin Trade Name Freq PRN Reason Stop Dose Admin Acetaminophen 650 mg 12/07/20 16:47 12/08/20 22:18 Acetaminophen Tab 325 Mg Tab PO 650 mg Q6HR PRN Administration Mild Pain or Fever > 100.5 Albuterol/Ipratropium 3 ml 12/09/20 16:00 12/12/20 11:02 Ipratropium-Albuterol 3 Ml Neb INHALATION 3 ml RT-QID ZECHARIAH Administration Albuterol/Ipratropium 3 ml 12/09/20 13:03 Ipratropium-Albuterol 3 Ml Neb INHALATION RT-Q2H PRN Shortness Of Breath Or Wheezing Bisacodyl 5 mg 12/07/20 19:33 Bisacodyl 5 Mg Tablet.Dr PO DAILY PRN Constipation Budesonide 1 mg 12/09/20 20:00 12/12/20 07:43 Budesonide 1 Mg/2 Ml Nebu INHALATION 1 mg RT-BID ZECHARIAH Administration Citalopram Hydrobromide 20 mg 12/08/20 09:00 12/12/20 08:18 Citalopram Hydrobromide 20 Mg Tab PO 20 mg DAILY ZECHARIAH Administration Diphenhydramine HCl 25 mg 12/09/20 08:25 Diphenhydramine 25 Mg Cap PO BID PRN Itching Formoterol Fumarate 20 mcg 12/09/20 20:00 12/12/20 07:43 Formoterol Fumarate 20 Mcg/2 Ml Nebu INHALATION 20 mcg RT-BID ZECHARIAH Administration Furosemide 40 mg 12/09/20 15:15 12/12/20 08:17 Furosemide 10 Mg/Ml 4 Ml Vial IV 40 mg DAILY ZECHARIAH Administration Heparin Sodium (Porcine) 5,000 unit 12/09/20 10:45 12/12/20 08:18 Heparin Sodium,Porcine 5,000 Unit/Ml 1 Ml Vial SQ 5,000 unit Q12HR ZECHARIAH Administration Daptomycin 800 mg/ Sodium 50 mls @ 100 mls/hr 12/09/20 20:00 12/11/20 21:07 Chloride IVPB 100 mls/hr Q48H ZECHARIAH Administration Protocol Insulin Aspart 0 unit 12/10/20 12:30 12/12/20 11:40 Insulin Aspart (Novolog) 100 Unit/Ml Vial SQ Not Given ACHS [facility] Protocol Lidocaine 1 patch 12/07/20 19:33 Lidocaine 5% Patch TOPICAL DAILY PRN Pain Methylprednisolone Sodium Succinate 60 mg 12/08/20 00:00 12/12/20 12:19 Methylprednisolone Sod Succi 125 Mg/2 Ml Vial IV 60 mg Q6HR [facility] Administration Metoprolol Tartrate 25 mg 12/08/20 09:00 12/12/20 08:26 Metoprolol Tartrate 25 Mg Tab PO Not Given DAILY ZECHARIAH Naloxone HCl 0.2 mg 12/07/20 16:47 Naloxone 0.4 Mg/Ml 1 Ml Vial IV Q2M PRN Opioid Reversal Ondansetron HCl 4 mg 12/07/20 16:47 Ondansetron 4 Mg/2 Ml Vial IVP Q8HR PRN Nausea And Vomiting Oxycodone/Acetaminophen 1 each 12/07/20 16:34 12/11/20 21:08 Oxycodone-Apap 10-325mg 1 Each Tab PO 1 each Q4H PRN Administration Pain Polyethylene Glycol 17 gm 12/07/20 19:33 Polyethylene Glycol 3350 17 Gm Powd.Pack PO DAILY PRN Constipation Senna/Docusate Sodium 1 each 12/07/20 19:33 Sennosides-Docusate Sodium 1 Each Tab PO BID PRN Constipation Objective - Vital Signs Vital signs: Vital Signs Temp 97.9 F 12/12/20 12:24 Pulse 91 12/12/20 12:24 Resp 24 12/12/20 12:24 BP 161/82 12/12/20 12:24 Pulse Ox 98 12/12/20 08:00 Intake & Output 12/11/20 12/12/20 12/12/20 18:59 06:59 18:59 Intake Total 50 Output Total 2500 300 2500 Balance -2500 -300 -2450 Intake: Intake, IV Titration 50 Amount DAPTOmycin 800 mg In 50 Sodium Chloride 0.9% 50 ml @ 100 mls/hr IVPB Q48H ZECHARIAH Rx#:[id number] Output: Urine 300 Hemodialysis 2500 2500 Other: # Voids 1 - Exam -GENERAL: The patient is alert and oriented x3, not in any acute distress. Obese HEENT: Pupils are round and equally reacting to light. EOMI. No scleral icterus. No conjunctival pallor. Normocephalic, atraumatic. No pharyngeal erythema. No thyromegaly. CARDIOVASCULAR: S1 and S2 present. No murmurs, rubs, or gallops. PULMONARY: Chest is clear to auscultation, no wheezing or crackles. ABDOMEN: Soft, nontender, nondistended, normoactive bowel sounds. No palpable organomegaly. -MUSCULOSKELETAL: No joint swelling or deformity. Midline lower back scar, healed with no drainage or open wound EXTREMITIES: No cyanosis, clubbing, or pedal edema. NEUROLOGICAL: Gross neurological examination did not reveal any focal deficits. -SKIN: no petechiae. He has extensive rash, maculopapular previous more confluent on the chest, back and extending into most of the abdomen as well as extremities. No mouth ulcer -Genitalia: Patient refused - Labs CBC & Chem 7: 12/12/20 07:45 12/12/20 07:45 Labs: Abnormal Lab Results - Last 24 Hours (Table) 12/11/20 12/11/20 12/12/20 Range/Units 16:32 20:48 07:45 RBC (4.30-5.90) m/uL Hgb (13.0-17.5) gm/dL Hct (39.0-53.0) % Lymphocytes # (1.0-4.8) k/uL ESR (0-15) mm/hr ABG pH (7.35-7.45) ABG pO2 (83-108) mmHg ABG HCO3 (21-25) mmol/L ABG Total CO2 (19-24) mmol/L ABG O2 Saturation (94-97) % BUN 58 H (9-20) mg/dL Creatinine 7.35 H* (0.66-1.25) mg/dL Glucose 161 H (74-99) mg/dL POC Glucose (mg/dL) 177 H 186 H (75-99) mg/dL C-Reactive Protein 85.3 H (<10.0) mg/L 12/12/20 12/12/20 12/12/20 Range/Units 07:45 07:45 07:49 RBC 4.12 L (4.30-5.90) m/uL Hgb 12.3 L (13.0-17.5) gm/dL Hct 37.5 L (39.0-53.0) % Lymphocytes # 0.5 L (1.0-4.8) k/uL ESR 43 H (0-15) mm/hr ABG pH (7.35-7.45) ABG pO2 (83-108) mmHg ABG HCO3 (21-25) mmol/L ABG Total CO2 (19-24) mmol/L ABG O2 Saturation (94-97) % BUN (9-20) mg/dL Creatinine (0.66-1.25) mg/dL Glucose (74-99) mg/dL POC Glucose (mg/dL) 168 H (75-99) mg/dL C-Reactive Protein (<10.0) mg/L 12/12/20 12/12/20 Range/Units 11:39 12:14 RBC (4.30-5.90) m/uL Hgb (13.0-17.5) gm/dL Hct (39.0-53.0) % Lymphocytes # (1.0-4.8) k/uL ESR (0-15) mm/hr ABG pH 7.49 H (7.35-7.45) ABG pO2 48 L* (83-108) mmHg ABG HCO3 28 H (21-25) mmol/L ABG Total CO2 29 H (19-24) mmol/L ABG O2 Saturation 87.3 L (94-97) % BUN (9-20) mg/dL Creatinine (0.66-1.25) mg/dL Glucose (74-99) mg/dL POC Glucose (mg/dL) 118 H (75-99) mg/dL C-Reactive Protein (<10.0) mg/L Microbiology - Last 24 Hours (Table) 12/07/20 16:02 Blood Culture - Preliminary Blood No Growth after 96 hours Assessment and Plan Assessment: Nonoliguric Acute kidney injury due to ATN secondary to hypotension and toxicity to vancomycin.is getting hemodialysis Ongoing and recent lumbar abscess status post laminectomy secondary to staph epidermidis resistant to oxacillin Acute COPD exacerbation and possible obstructive sleep apnea, continue with CPAP/BiPAP and steroids Echo type of sick respiratory failure secondary to above Maculopapular rash, improving Lactic acidosis, resolved Mild Hypovolemic hyponatremia Recent L4- S1 fusion surgery and revision and incision and drainage with antibiotic spacer. Hypertension currently not hypertensive Morbid obesity with BMI 41.6 Possible history of obstructive sleep apnea as per patient, not on CPAP and BiPAP Plan: This is a pleasant 45 years old male who presents with vancomycin toxicity, lumbar abscess, ACI rash. Continue with daptomycin as per ID team recommendation. Continue with Solu-Medrol . DC IV fluids.Continue with hemodialysis as per nephrology team follow-up with zipper slide attacher in addition. Patient will be monitored in intensive care unit orthopedic input is appreciated and follow-up CAT scan of the lumbar spine Continued with pain management and follow up closely. Labs and medication were reviewed.. Continue same treatment. Continue with symptomatic treatment. Resume home medication. Monitor lytes and vitals. DVT and GI prophylaxis. Further recommendationsas per clinical course of the patient DVT prophylaxis: Subcutaneous heparin GI Prophylaxis: Pepcid PT/OT: Home health care versus inpatient rehab Prognosis is guarded
--- NOTE | 2020-12-12 12:51 | P.PN ---
Subjective Progress Note Date: 12/12/20 Principal diagnosis: Acute kidney injury, history of recent lumbar surgeries 2, other medical comorbidities Patient was evaluated today at bedside, his significant other is present with him. He did receive dialysis today. Patient's O2 sats have continued to be low after being off the BiPAP. He was evaluated again by the policy specialist today and with her findings and recommended transfer to the ICU for further observation. Patient is awake today at bedside, he is agitated during exam. He still remains confused but does follow commands and answer some of my questions adequately. He notes minimal discomfort in the low back at this time. He is being followed at this time by internal medicine, nephrology, pulmonology, infectious disease and orthopedic service. Objective - Vital Signs Vital signs: Vital Signs Temp 97.9 F 12/12/20 12:24 Pulse 91 12/12/20 12:24 Resp 24 12/12/20 12:24 BP 161/82 12/12/20 12:24 Pulse Ox 98 12/12/20 08:00 Intake & Output 12/11/20 12/12/20 12/12/20 18:59 06:59 18:59 Intake Total 50 Output Total 2500 300 2500 Balance -2500 -300 -2450 Intake: Intake, IV Titration 50 Amount DAPTOmycin 800 mg In 50 Sodium Chloride 0.9% 50 ml @ 100 mls/hr IVPB Q48H [facility] Rx#:[id number] Output: Urine 300 Hemodialysis 2500 2500 Other: # Voids 1 - Exam Gen: Exam limited due to patient's current mental state Integument: Erythematous macular papular rash is improving There is no active drainage visualized from the wound, there are no obvious openings in the skin. There is no areas of fluctuance appreciated on exam. No tenderness with palpation throughout the midline and paravertebral regions of the lumbar spine ROM: Passive motion of the bilateral lower extremities was assessed with hip flexion, knee flexion, knee extension, straight leg raise. No painful stimuli was observed. Sensory Exam: sensory exam to light touch throughout bilateral lower extremities is intact Motor: 5 out of 5 strength is noted with hip flexion, knee extension, knee flexion, plantar flexion, dorsiflexion, EHL, FHL are intact in bilateral lower ext remities Reflexes: Not assessed - Labs CBC & Chem 7: 12/12/20 07:45 12/12/20 07:45 Labs: Abnormal Lab Results - Last 24 Hours (Table) 12/11/20 12/11/20 12/12/20 Range/Units 16:32 20:48 07:45 RBC (4.30-5.90) m/uL Hgb (13.0-17.5) gm/dL Hct (39.0-53.0) % Lymphocytes # (1.0-4.8) k/uL ESR (0-15) mm/hr ABG pH (7.35-7.45) ABG pO2 (83-108) mmHg ABG HCO3 (21-25) mmol/L ABG Total CO2 (19-24) mmol/L ABG O2 Saturation (94-97) % BUN 58 H (9-20) mg/dL Creatinine 7.35 H* (0.66-1.25) mg/dL Glucose 161 H (74-99) mg/dL POC Glucose (mg/dL) 177 H 186 H (75-99) mg/dL C-Reactive Protein 85.3 H (<10.0) mg/L 12/12/20 12/12/20 12/12/20 Range/Units 07:45 07:45 07:49 RBC 4.12 L (4.30-5.90) m/uL Hgb 12.3 L (13.0-17.5) gm/dL Hct 37.5 L (39.0-53.0) % Lymphocytes # 0.5 L (1.0-4.8) k/uL ESR 43 H (0-15) mm/hr ABG pH (7.35-7.45) ABG pO2 (83-108) mmHg ABG HCO3 (21-25) mmol/L ABG Total CO2 (19-24) mmol/L ABG O2 Saturation (94-97) % BUN (9-20) mg/dL Creatinine (0.66-1.25) mg/dL Glucose (74-99) mg/dL POC Glucose (mg/dL) 168 H (75-99) mg/dL C-Reactive Protein (<10.0) mg/L 12/12/20 12/12/20 Range/Units 11:39 12:14 RBC (4.30-5.90) m/uL Hgb (13.0-17.5) gm/dL Hct (39.0-53.0) % Lymphocytes # (1.0-4.8) k/uL ESR (0-15) mm/hr ABG pH 7.49 H (7.35-7.45) ABG pO2 48 L* (83-108) mmHg ABG HCO3 28 H (21-25) mmol/L ABG Total CO2 29 H (19-24) mmol/L ABG O2 Saturation 87.3 L (94-97) % BUN (9-20) mg/dL Creatinine (0.66-1.25) mg/dL Glucose (74-99) mg/dL POC Glucose (mg/dL) 118 H (75-99) mg/dL C-Reactive Protein (<10.0) mg/L Microbiology - Last 24 Hours (Table) 12/07/20 16:02 Blood Culture - Preliminary Blood No Growth after 96 hours Assessment and Plan Assessment: Status post revision decompression evacuation of epidural phlegmon evacuation L4 5 and L5-S1 osteo-discitis with L4-S1 fusion and antibiotic spacer placement Skin rash, antibiotic-related Acute kidney failure Other medical comorbidities Plan: White blood cell count remains in normal range at this time, his CRP and SED rate were elevated compared to previous results. Will plan for redraw in 48 hours, difficult to determine cause of elevated enzymes due to his current medical state. Incision remains stable at this time with no acute changes, we'll continue daily dressing changes. GI and DVT prophylaxis per primary medical service We'll continue to follow patient during inpatient stay Time with Patient: Less than 30
--- NOTE | 2020-12-12 12:55 | CDI ---
Documentation Clarification Form Date: 12/12/2020 12:19:11 PM From: Khadijah Hook RN, CCDS Admit Date: 12/07/2020 04:34:00 PM Patient Name: Buzz Mukherjee Visit Number: [id number] ATTENTION: The Clinical Documentation Specialists (CDI) and [facility] Coding Staff appreciate your assistance in clarifying documentation. Please respond to the clarification below the line at the bottom and electronically sign. The CDI & [facility] Coding staff will review the response and follow-up if needed. Please note: Queries are made part of the Legal Health Record. If you have any questions, please contact the author of this message via ITS. Dr. Alpesh Cisse Altered Mental Status was documented in the Nephrology Progress note in a patient with ATN on daily HD and Sepsis. Please provide clinical significance History/Risk Factors: HTN, Smoker, Osteomyelitis with recent spinal fusion and antibiotic spacer, with MRSA positive cultures, chronic hypoxic respiratory failure with possible Pickwickian syndrome, Smoker Sepsis with ATN this admission Clinical Indicators: 12/11 Nephrology Progress note: " Acute kidney injury, multifactorial, mostly vancomycin toxicity associated with also NSAIDs and hypotension in the setting of use of angiotensin receptor blockers currently oliguric and hemodialysis dependent. Patient will be dialyzed on a daily basis for now. Continue to avoid all nephrotoxic agents. 2. Volume overload, increase UF with hemodialysis today and then again in a.m. 3. Mental status changes associated with uremia. 4. Lumbar abscess with wound culture growing Staph epi which was resistant to Oxacillin, being followed by ID." 12/10 Pulmonary Progress note: "Monitor for signs of worsening mental status, I'll avoid narcotics hypnotics, sedatives." 12/11 Orthopedic Progress note: "Gen: Exam limited due to patient's current mental state." 12/12 CXR: Correlate for a diffuse interstitial pneumonia 12/07-12/12 Labs: WBC 11.3/11.44/18.51/15.08/8.93/8.1 Neutrophils 9.3/10.55/16.63/13.55/7.65/7 BUN 18/29/54/73/65/58 Creatinine: 3.99/5.6/7.8/9.8/8.1/7.35 CRP 145.5/17.8/85.3 Vanco Trough 60.1 Reactive Hepatitis B core Ab Treatment: Vanco D/C HD w UF Daily Daptomycin 800 mg IVPB Q 48 hrs. Lasix 40 mg IVP QD 12/07 3L 0.9% NS IVF Bolus followed by 100 cc/hr. until 12/10 In your professional opinion, please clarify the etiology of the Altered Mental Status, if known. Toxic Encephalopathy (Please specify underlying medical Illness or drug) Metabolic Encephalopathy (please specify underlying medical condition) Other condition (please specify) Unable to determine (Last Revision: January 2018) Metabolic Encephalopathy MTDD
[2020-12-12 13:15] LABS: Glucose,Whole Blood 136 mg/dL (75-99)
[2020-12-12 13:47] VITALS: BMI 41.5
--- NOTE | 2020-12-12 13:58 | P.PN ---
Subjective Progress Note Date: 12/12/20 Principal diagnosis: Acute hypoxic respiratory failure, related to obstructive sleep apnea, fluid overload, acute kidney injury This is a 45-year-old male who presented to the emergency department on September 06 complaining of fever, and a rash. He is 15 days postop revision of L4-L5 with L4 through S1 fusion, and placement of antibiotic spacer. We actually know this patient because he came back from the operating room initially to the intensive care unit on the ventilator. He was quite rambunctious, and the patient was eventually extubated without a formal spontaneous breathing trial. The patient was apparently started on vancomycin 3 times a day for osteomyelitis. The patient presented to the emergency room on the with 2 days of fever and rash. The rash looks like a red man syndrome rash. It was extending in the back of his neck and extending down his whole back and sides of his chest. The surgery was done by Dr. Jama, and he recently saw him in the office. We were called in today because there was an "A" team called on the patient. The patient was apparently manifesting some respiratory distress. One of the charge nurses from the ICU, thought the patient was just a deep sleeper and probably suffering from some sleep apnea syndrome. The patient apparently does have a history of sleep apnea, but does not wear his CPAP/BiPAP device. She did not feel like the patient needed to be transferred down to the intensive care unit. Anyway, and we saw the patient, the patient was a bit sleepy, we recommended Solu-Medrol, Perforomist, and Pulmicort updrafts, and DuoNeb 4 times a day and when necessary. In addition, a blood gas was ordered but I didn't think it was necessary. Finally, we recommended BiPAP at 12/5 and 50%. We encouraged the patient to wear it until he started doing better. We'll be went to go see him, his saturations were in the low 90s, and at that time, he was on 6 L nasal cannula. He did arouse and respond appropriately. On 12/10/2020 patient seen in follow-up. He remains on BiPAP support, tolerating it well, resting comfortably in bed, BiPAP pressures of 12 and 5 and 50%, his lung sounds are diminished, he is a urine output has been diminished, his renal function continues to worsen, today's BUN is up to 73 and creatinine is 9.8 with potassium of 5.7, temporary emergent hemodialysis catheter was pl aced in the femoral area, and patient will have his hemodialysis treatment today, the rest of his blood work has been reviewed, showing white blood cell count of 15, hemoglobin is 11. His urinalysis showed possibility of a urinary tract infection, his blood and urine cultures have been negative, gastric chest x-ray showed bilateral patchy airspace disease, low lung volumes. Patient remains on daptomycin, and treatments, IV steroids. He is on IV Lasix 40 mg daily. Has not had significant diuresis On 12/11/2020 patient seen in follow-up, he is currently off BiPAP support, he is on 6 L of oxygen, he had hemodialysis treatment yesterday with removal of 1 L of fluid, and today he is having another session of hemodialysis with a goal of removing 2 L, he is still be drowsy, but more responsive to verbal stimulation, he has had no fever or chills, no recent chest x-ray. Remains on IV diuretics with Lasix 40 mg daily, IV steroids and breathing treatments. Continues on labs reviewed, slight improvement in renal profile, with B1 is 65 and creatinine of 8.1, potassium is 4.7. She continues on daptomycin, vancomycin has been discontinued, he is on IV steroids, and Benadryl for persistent rash possibly related to vancomycin. On 12/12/2020 patient is seen in follow-up on medical surgical floor, yesterday he had hemodialysis done with removal of 2.5 L of fluid, and today is having ano ther hemodialysis session with the goal of removing 2.5 L, he is more awake today, he is currently on 6 L, he is agitated at times, and removes his oxygen. At times confused, at times not cooperative. Chest x-ray today shows diffuse interstitial pattern. Patient remains on daptomycin, but has significant rash, which looks very dry flaky on today's exam. He continues on IV Solu-Medrol every 6, Benadryl, he is given some pain medications. Still seems generally swollen, more gas was completed following hemodialysis recurrent showing pO2 of only 40%, pCO2 of 37, pH of 7.49 and this was done and FiO2 of 44% and subsequently his FiO2 was increased up to 100% nonrebreather mask. In view of his cardiorespiratory status, encephalopathy, confusion and agitation, moving his oxygen mask off we decided to move into the intensive care unit for closer monitoring. ProBNP was ordered and came back at 9570, pro-calcitonin was sent and is pending at this time, CRP is 85.3. His labs before hemodialysis showed creatinine is 7.35, and BUN of 50, and electrolytes are within normal limits. Objective - Vital Signs Vital signs: Vital Signs Temp 97.2 F L 12/12/20 13:14 Pulse 86 12/12/20 13:14 Resp 15 12/12/20 13:14 BP 145/92 12/12/20 13:14 Pulse Ox 97 12/12/20 13:14 Intake & Output 12/11/20 12/12/20 12/12/20 18:59 06:59 18:59 Intake Total 50 Output Total 2500 300 2500 Balance -2500 -300 -2450 Intake: Intake, IV Titration 50 Amount DAPTOmycin 800 mg In 50 Sodium Chloride 0.9% 50 ml @ 100 mls/hr IVPB Q48H [facility] Rx#:[id number] Output: Urine 300 0 Hemodialysis 2500 2500 Other: # Voids 1 - Exam GENERAL EXAM: Confused, agitated at times, not cooperative, 45 white male, resting in bed, currently on 100% nonrebreather, with pulse ox of 95-97% HEAD: Normocephalic/atraumatic. EYES: Normal reaction of pupils, equal size. Conjunctiva pink, sclera white. NOSE: Clear with pink turbinates. THROAT: No erythema or exudates. NECK: No masses, no JVD, no thyroid enlargement, no adenopathy. CHEST: No chest wall deformity. Symmetrical expansion. LUNGS: Equal air entry with no crackles, wheeze, rhonchi or dullness. CVS: Regular rate and rhythm, normal S1 and S2, no gallops, no murmurs, no rubs ABDOMEN: Soft, nontender. No hepatosplenomegaly, normal bowel sounds, no guarding or rigidity. EXTREMITIES: No clubbing, no edema, no cyanosis, 2+ pulses and upper and lower extremities. MUSCULOSKELETAL: Muscle strength and tone normal. SPINE: No scoliosis or deformity SKIN: Patient has significant red confluent rash all over patient's face, shoulders, neck, abdomen, back and upper thighs CENTRAL NERVOUS SYSTEM: A 30, on BiPAP support, No focal deficits, tone is normal in all 4 extremities. - Labs CBC & Chem 7: 12/12/20 07:45 12/12/20 07:45 Labs: Abnormal Lab Results - Last 24 Hours (Table) 12/11/20 12/11/20 12/12/20 Range/Units 16:32 20:48 07:45 RBC (4.30-5.90) m/uL Hgb (13.0-17.5) gm/dL Hct (39.0-53.0) % Lymphocytes # (1.0-4.8) k/uL ESR (0-15) mm/hr ABG pH (7.35-7.45) ABG pO2 (83-108) mmHg ABG HCO3 (21-25) mmol/L ABG Total CO2 (19-24) mmol/L ABG O2 Saturation (94-97) % BUN 58 H (9-20) mg/dL Creatinine 7.35 H* (0.66-1.25) mg/dL Glucose 161 H (74-99) mg/dL POC Glucose (mg/dL) 177 H 186 H (75-99) mg/dL C-Reactive Protein 85.3 H (<10.0) mg/L 12/12/20 12/12/20 12/12/20 Range/Units 07:45 07:45 07:49 RBC 4.12 L (4.30-5.90) m/uL Hgb 12.3 L (13.0-17.5) gm/dL Hct 37.5 L (39.0-53.0) % Lymphocytes # 0.5 L (1.0-4.8) k/uL ESR 43 H (0-15) mm/hr ABG pH (7.35-7.45) ABG pO2 (83-108) mmHg ABG HCO3 (21-25) mmol/L ABG Total CO2 (19-24) mmol/L ABG O2 Saturation (94-97) % BUN (9-20) mg/dL Creatinine (0.66-1.25) mg/dL Glucose (74-99) mg/dL POC Glucose (mg/dL) 168 H (75-99) mg/dL C-Reactive Protein (<10.0) mg/L 12/12/20 12/12/20 12/12/20 Range/Units 11:39 12:14 13:13 RBC (4.30-5.90) m/uL Hgb (13.0-17.5) gm/dL Hct (39.0-53.0) % Lymphocytes # (1.0-4.8) k/uL ESR (0-15) mm/hr ABG pH 7.49 H (7.35-7.45) ABG pO2 48 L* (83-108) mmHg ABG HCO3 28 H (21-25) mmol/L ABG Total CO2 29 H (19-24) mmol/L ABG O2 Saturation 87.3 L (94-97) % BUN (9-20) mg/dL Creatinine (0.66-1.25) mg/dL Glucose (74-99) mg/dL POC Glucose (mg/dL) 118 H 136 H (75-99) mg/dL C-Reactive Protein (<10.0) mg/L Microbiology - Last 24 Hours (Table) 12/07/20 16:02 Blood Culture - Preliminary Blood No Growth after 96 hours Assessment and Plan Plan: Assessment: Acute on chronic hypoxemic respiratory failure, likely secondary to bronchospasm, fluid overload as well as sleep apnea syndrome, noncompliant with CPAP/BiPAP. Acute kidney injury, fluid overload, hyperkalemia Rule out pickwickian syndrome. Obesity. Possible underlying sepsis secondary to osteomyelitis. Postop day #19, status post L4-L5 vision, with L4 through S1 fusion. Also, there was placement of antibiotics spacer. Diffuse truncal rash, possibly consistent with "red man" syndrome secondary to vancomycin infusion. History of hypertension. History of chronic back pain. Altered mentation, confusion and agitation, likely related to toxic metabolic encephalopathy Plan: Patient has been moved to the intensive care unit for closer monitoring, titrate FiO2 to keep O2 sat at 92-94%, may use BiPAP with previous settings if the patient tolerates it. He may need a plant safety leader at the bedside to prevent him from removing his oxygen, we'll discontinue medication that we will increase his confusion and agitation, discontinue Benadryl, cut back to Solu-Medrol to 40 every 12, patient has been dialyzed yesterday and today, will likely need dialy sis again today, we'll defer to nephrology for that decision, follow-up labs in the morning including electrolytes and renal profile. Antibiotics per ID service recommendations, no fever or chills. GI/DVT prophylaxis. Continue nebulized bronchodilators. May use Haldol 2 mg every 4 hours for acute agitation or psychosis. I performed a history & physical examination of the patient and discussed their management with my nurse practitioner, Lyndsey Witt. I reviewed the nurse practitioner's note and agree with the documented findings and plan of care. Lung sounds are positive for diffuse wheezes throughout the lung valentin. The findings and the impression was discussed with the patient. I attest to the documentation by the nurse practitioner. Time with Patient: Greater than 30
--- NOTE | 2020-12-12 14:50 | PN ---
PROGRESS NOTE The patient is seen for followup for acute kidney injury currently oliguric renal failure and dialysis dependent. Patient is having his second treatment of hemodialysis today. We removed about 2.5 L and he tolerated that fairly well yesterday. We are planning for about 2.5-3 L again today. This morning patient is being quite anxious and complaining of shortness of breath. He did not tolerate the BiPAP. He has been pulling out his IVs and the oxygen. No significant respiratory distress noted at this time. The patient is being transferred to the ICU. He continues to have no significant urine output. Serum creatinine remains quite elevated. It is down to 7.3 from 9.8. PHYSICAL EXAMINATION: On examination today, the patient is seen on dialysis. Blood pressure was 148/78, heart rate 78 per minute. He is afebrile. EXAMINATION OF THE HEART: S1, S2. EXAMINATION OF THE LUNGS: Bilateral breath sounds are heard. Abdomen is soft. Morbidly obese. Examination of lower extremities shows 1+ edema. Generalized rash is noted. [employer] exam shows patient is moving all 4 extremities. At times, he is confused. LABS: Labs show sodium 139, potassium 4.9, chloride 100, BUN 58, creatinine 7.35, hemoglobin 12.3 g/dL. ASSESSMENT: 1. Acute kidney injury secondary to vancomycin toxicity, also exacerbated by use of NSAIDs, hypotension, CAROL inhibitors and sepsis. Currently oliguric and dialysis dependent. We will continue to dialyze the patient on a daily basis for now given the significant uremia. 2. Hyperkalemia associated with acute kidney injury, now improved. 3. Metabolic acidosis associated with renal failure, currently improved with dialysis. 4. Volume overload, status post 2.5 L of ultrafiltration yesterday. We will plan for another 2.5-3 L today. 5. Lumbar spinal abscess, status post I and D and status post vancomycin as outpatient. Currently maintained on daptomycin. Fluid culture grew Staph epi resistant to oxacillin. 6. Mental status changes associated with uremia, possibly related to hypoxia as well. 7. Red man syndrome from vancomycin. PLAN: Repeat hemodialysis in a.m. Continue to avoid nephrotoxic agents. I will change the IV Lasix to 80 mg since patient's creatinine is significantly elevated. He has not had much urine output and I will likely discontinue it tomorrow if he remains severely oliguric. MMODL / IJN: [id number] /
[2020-12-12 17:33] LABS: Glucose,Whole Blood 170 mg/dL (75-99)
[2020-12-12] MEDS: methylPREDNISolone SOD SUCCI 40 MG/ML 1 ML VIAL IV SCH (20:12)
[2020-12-12 20:35] LABS: Glucose,Whole Blood 155 mg/dL (75-99)
[2020-12-13] MEDS: HALOPERIDOL LACTATE 5 MG/ML 1 ML VIAL IVP PRN ×5 (02:58→22:35)
[2020-12-13 04:04] LABS: Basophils % (A) 0 %; Eosinophils % (A) 1 %; HCT 28.3 % (39.0-53.0); Lymphocytes # (A) 0.5 k/uL (1.0-4.8); Lymphocytes % (A) 7 %; MCH 30.3 pg (25.0-35.0); MCHC 34.1 g/dL (31.0-37.0); MCV 88.8 fL (80.0-100.0); Mean Platelet Volume 7.9; Monocytes # (A) 0.5 k/uL (0-1.0); Monocytes % (A) 7 %; Neutrophils # (A) 6.4 k/uL (1.3-7.7); Neutrophils % (A) 85 %; Platelet Count 232 k/uL (150-450); RBC 3.18 m/uL (4.30-5.90); RDW 14.1 % (11.5-15.5); WBC 7.5 k/uL (3.8-10.6)
[2020-12-13 04:13] LABS: HGB 9.6 gm/dL (13.0-17.5)
[2020-12-13 04:21] LABS: Albumin 3.1 g/dL (3.5-5.0); Calcium 8.2 mg/dL (8.4-10.2); Potassium 3.9 mmol/L (3.5-5.1); Total Bilirubin 0.5 mg/dL (0.2-1.3); Total Protein 5.3 g/dL (6.3-8.2)
[2020-12-13 06:37] LABS: Glucose,Whole Blood 164 mg/dL (75-99)
[2020-12-13] MEDS: INSULIN ASPART (NovoLOG) 100 UNIT/ML VIAL SQ SCH ×4 (06:37→21:27)
[2020-12-13] MEDS: methylPREDNISolone SOD SUCCI 40 MG/ML 1 ML VIAL IV SCH ×2 (08:16→21:28)
[2020-12-13] MEDS: METOPROLOL TARTRATE 25 MG TAB PO SCH (08:17)
[2020-12-13] MEDS: CITALOPRAM HYDROBROMIDE 20 MG TAB PO SCH (08:17)
[2020-12-13] MEDS: FUROSEMIDE 10 MG/ML 4 ML VIAL IV SCH (08:17)
[2020-12-13] MEDS: HEPARIN SODIUM,PORCINE 5,000 UNIT/ML 1 ML VIAL SQ SCH ×2 (08:17→21:27)
[2020-12-13] MEDS: DEXMEDETOMIDINE/0.9% NACL(PMX) 400 MCG in EMPTY BAG 1 BAG IV SCH ×3 (08:34→20:57)
[2020-12-13] MEDS: IPRATROPIUM-ALBUTEROL 3 ML NEB INHALATION SCH ×4 (09:07→20:16)
[2020-12-13] MEDS: FORMOTEROL FUMARATE 20 MCG/2 ML NEBU INHALATION SCH ×2 (09:07→20:16)
[2020-12-13] MEDS: BUDESONIDE 1 MG/2 ML NEBU INHALATION SCH ×2 (09:07→20:16)
--- NOTE | 2020-12-13 09:08 | XR ---
EXAMINATION TYPE: XR chest 1V portable DATE OF EXAM: 12/13/2020 COMPARISON: Chest x-ray 12/12/2020 HISTORY: Shortness of breath TECHNIQUE: Single frontal view of the chest is obtained. FINDINGS: Right-sided PICC line shows the distal tip overlying the cavoatrial junction level. There is no evident pneumothorax or pleural effusion. Cardiac mediastinal silhouette is stable. Patchy bila teral density within lungs shows a stable appearance. IMPRESSION: No significant interval change, correlate for pneumonia, edema
--- NOTE | 2020-12-13 10:31 | P.PN ---
Subjective Progress Note Date: 12/13/20 Principal diagnosis: Acute kidney injury, history of recent lumbar surgeries 2, other medical comorbidities Patient was evaluated today at bedside, he is in the ICU. He is undergoing dialysis at this time. There utilizing a nasal cannula for O2 delivery at this time. Patient is awake and alert on exam, he still remains agitated. Confusion is still present but improving. He is noting no acute pain in the low back region. He is being followed at this time by internal medicine, nephrology, pulmonology, infectious disease and orthopedic service. Objective - Vital Signs Vital signs: Vital Signs Temp 98.3 F 12/13/20 03:00 Pulse 74 12/13/20 09:30 Resp 12 12/13/20 09:00 BP 151/106 12/13/20 09:00 Pulse Ox 95 12/13/20 09:00 Intake & Output 12/12/20 12/13/20 12/13/20 18:59 06:59 18:59 Intake Total 50 500 100 Output Total 2600 475 Balance -2550 25 100 Weight 131.542 kg Intake: Intake, IV Titration 50 Amount DAPTOmycin 800 mg In 50 Sodium Chloride 0.9% 50 ml @ 100 mls/hr IVPB Q48H [facility] Rx#:[id number] Oral 0 500 100 Output: Urine 100 475 Hemodialysis 2500 Other: # Voids 1 0 - Exam Gen: Exam limited due to patient's current mental state Integument: Erythematous maculopapular rash has continued to improve Surgical incision of the posterior lumbar region is well healing, there is no drainage visualized on the bandage. No areas of fluctuance. There is no areas of erythema. ROM: Passive motion of the bilateral lower extremities was assessed with hip flexion, knee flexion, knee extension, straight leg raise. No painful stimuli was observed. Sensory Exam: sensory exam to light touch throughout bilateral lower extremities is intact Motor: 5 out of 5 strength is noted with hip flexion, knee extension, knee flexion, plantar flexion, dorsiflexion, EHL, FHL are intact in bilateral lower extremities Reflexes: Not assessed - Labs CBC & Chem 7: 12/13/20 03:39 12/13/20 03:39 Labs: Abnormal Lab Results - Last 24 Hours (Table) 12/12/20 12/12/20 12/12/20 Range/Units 07:45 07:45 07:45 RBC (4.30-5.90) m/uL Hgb (13.0-17.5) gm/dL Hct (39.0-53.0) % Lymphocytes # (1.0-4.8) k/uL ESR 43 H (0-15) mm/hr ABG pH (7.35-7.45) ABG pO2 (83-108) mmHg ABG HCO3 (21-25) mmol/L ABG Total CO2 (19-24) mmol/L ABG O2 Saturation (94-97) % Sodium (137-145) mmol/L Chloride (98-107) mmol/L BUN 58 H (9-20) mg/dL Creatinine 7.35 H* (0.66-1.25) mg/dL Glucose 161 H (74-99) mg/dL POC Glucose (mg/dL) (75-99) mg/dL Calcium (8.4-10.2) mg/dL C-Reactive Protein 85.3 H (<10.0) mg/L Total Protein (6.3-8.2) g/dL Albumin (3.5-5.0) g/dL Procalcitonin 0.96 H (0.02-0.09) ng/mL 12/12/20 12/12/20 12/12/20 Range/Units 11:39 12:14 13:13 RBC (4.30-5.90) m/uL Hgb (13.0-17.5) gm/dL Hct (39.0-53.0) % Lymphocytes # (1.0-4.8) k/uL ESR (0-15) mm/hr ABG pH 7.49 H (7.35-7.45) ABG pO2 48 L* (83-108) mmHg ABG HCO3 28 H (21-25) mmol/L ABG Total CO2 29 H (19-24) mmol/L ABG O2 Saturation 87.3 L (94-97) % Sodium (137-145) mmol/L Chloride (98-107) mmol/L BUN (9-20) mg/dL Creatinine (0.66-1.25) mg/dL Glucose (74-99) mg/dL POC Glucose (mg/dL) 118 H 136 H (75-99) mg/dL Calcium (8.4-10.2) mg/dL C-Reactive Protein (<10.0) mg/L Total Protein (6.3-8.2) g/dL Albumin (3.5-5.0) g/dL Procalcitonin (0.02-0.09) ng/mL 12/12/20 12/12/20 12/13/20 Range/Units 17:32 20:34 03:39 RBC 3.18 L (4.30-5.90) m/uL Hgb 9.6 L D (13.0-17.5) gm/dL Hct 28.3 L (39.0-53.0) % Lymphocytes # 0.5 L (1.0-4.8) k/uL ESR (0-15) mm/hr ABG pH (7.35-7.45) ABG pO2 (83-108) mmHg ABG HCO3 (21-25) mmol/L ABG Total CO2 (19-24) mmol/L ABG O2 Saturation (94-97) % Sodium (137-145) mmol/L Chloride (98-107) mmol/L BUN (9-20) mg/dL Creatinine (0.66-1.25) mg/dL Glucose (74-99) mg/dL POC Glucose (mg/dL) 170 H 155 H (75-99) mg/dL Calcium (8.4-10.2) mg/dL C-Reactive Protein (<10.0) mg/L Total Protein (6.3-8.2) g/dL Albumin (3.5-5.0) g/dL Procalcitonin (0.02-0.09) ng/mL 12/13/20 12/13/20 Range/Units 03:39 06:35 RBC (4.30-5.90) m/uL Hgb (13.0-17.5) gm/dL Hct (39.0-53.0) % Lymphocytes # (1.0-4.8) k/uL ESR (0-15) mm/hr ABG pH (7.35-7.45) ABG pO2 (83-108) mmHg ABG HCO3 (21-25) mmol/L ABG Total CO2 (19-24) mmol/L ABG O2 Saturation (94-97) % Sodium 135 L (137-145) mmol/L Chloride 97 L (98-107) mmol/L BUN 48 H (9-20) mg/dL Creatinine 4.88 H (0.66-1.25) mg/dL Glucose 180 H (74-99) mg/dL POC Glucose (mg/dL) 164 H (75-99) mg/dL Calcium 8.2 L (8.4-10.2) mg/dL C-Reactive Protein (<10.0) mg/L Total Protein 5.3 L (6.3-8.2) g/dL Albumin 3.1 L (3.5-5.0) g/dL Procalcitonin (0.02-0.09) ng/mL Microbiology - Last 24 Hours (Table) 12/07/20 16:02 Blood Culture - Preliminary Blood No Growth after 120 hours Assessment and Plan Assessment: Status post revision decompression evacuation of epidural phlegmon evacuation L4 5 and L5-S1 osteo-discitis with L4-S1 fusion and antibiotic spacer placement Skin rash, antibiotic-related Acute kidney failure Other medical comorbidities Plan: With regards to his low back it appears stable at this time. I did place an optifoam dressing over the incision, this is done to help keep the area clean and dry. /His current medical status has prevented him the ability to shower and wash over that area. Patient's labs have continued to improve with regards to his white blood cell and creatinine CRP and sed rate are to be drawn tomorrow, will monitor those results GI and DVT prophylaxis per primary medical service We will be available for any further questions regarding this patient, please don't hesitate to contact our group Time with Patient: Less than 30
--- NOTE | 2020-12-13 11:06 | P.PN ---
Subjective Progress Note Date: 12/13/20 Principal diagnosis: Acute hypoxic respiratory failure, obstructive sleep apnea, fluid volume overload, acute kidney injury This is a 45-year-old male who presented to the emergency department on September 06 complaining of fever, and a rash. He is 15 days postop revision of L4-L5 with L4 through S1 fusion, and placement of antibiotic spacer. We actually know this patient because he came back from the operating room initially to the intensive care unit on the ventilator. He was quite rambunctious, and the patient was eventually extubated without a formal spontaneous breathing trial. The patient was apparently started on vancomycin 3 times a day for osteomyelitis. The patient presented to the emergency room on the with 2 days of fever and rash. The rash looks like a red man syndrome rash. It was extending in the back of his neck and extending down his whole back and sides of his chest. The surgery was done by Dr. Jama, and he recently saw him in the office. We were called in today because there was an "A" team called on the patient. The patient was apparently manifesting some respiratory distress. One of the charge nurses from the ICU, thought the patient was just a deep sleeper and probably suffering from some sleep apnea syndrome. The patient apparently does have a history of sleep apnea, but does not wear his CPAP/BiPAP device. She did not feel like the patient needed to be transferred down to the intensive care unit. Anyway, and we saw the patient, the patient was a bit sleepy, we recommended Solu-Medrol, Perforomist, and Pulmicort updrafts, and DuoNeb 4 times a day and when necessary. In addition, a blood gas was ordered but I didn't think it was necessary. Finally, we recommended BiPAP at 12/5 and 50%. We encouraged the patient to wear it until he started doing better. We'll be went to go see him, his saturations were in the low 90s, and at that time, he was on 6 L nasal cannula. He did arouse and respond appropriately. On 12/10/2020 patient seen in follow-up. He remains on BiPAP support, tolerating it well, resting comfortably in bed, BiPAP pressures of 12 and 5 and 50%, his lung sounds are diminished, he is a urine output has been diminished, his renal function continues to worsen, today's BUN is up to 73 and creatinine is 9.8 with potassium of 5.7, temporary emergent hemodialysis catheter was placed in the femoral area, and patient will have his hemodialysis treatment today, the rest of his blood work has been reviewed, showing white blood cell count of 15, hemoglobin is 11. His urinalysis showed possibility of a urinary tract infection, his blood and urine cultures have been negative, gastric chest x-ray showed bilateral patchy airspace disease, low lung volumes. Patient remains on daptomycin, and treatments, IV steroids. He is on IV Lasix 40 mg daily. Has not had significant diuresis On 12/11/2020 patient seen in follow-up, he is currently off BiPAP support, he is on 6 L of oxygen, he had hemodialysis treatment yesterday with removal of 1 L of fluid, and today he is having another session of hemodialysis with a goal of removing 2 L, he is still be drowsy, but more responsive to verbal stimulation, he has had no fever or chills, no recent chest x-ray. Remains on IV diuretics with Lasix 40 mg daily, IV steroids and breathing treatments. Continues on labs reviewed, slight improvement in renal profile, with B1 is 65 and creatinine of 8.1, potassium is 4.7. She continues on daptomycin, vancomycin has been discontinued, he is on IV steroids, and Benadryl for persistent rash possibly related to vancomycin. On 12/12/2020 patient is seen in follow-up on medical surgical floor, yesterday he had hemodialysis done with removal of 2.5 L of fluid, and today is having another hemodialysis session with the goal of removing 2.5 L, he is more awake today, he is currently on 6 L, he is agitated at times, and removes his oxygen. At times confused, at times not cooperative. Chest x-ray today shows diffuse interstitial pattern. Patient remains on daptomycin, but has significant rash, which looks very dry flaky on today's exam. He continues on IV Solu-Medrol every 6, Benadryl, he is given some pain medications. Still seems generally swollen, more gas was completed following hemodialysis recurrent showing pO2 of only 40%, pCO2 of 37, pH of 7.49 and this was done and FiO2 of 44% and subsequently his FiO2 was increased up to 100% nonrebreather mask. In view of his cardiorespiratory status, encephalopathy, confusion and agitation, moving his oxygen mask off we decided to move into the intensive care unit for closer monitoring. ProBNP was ordered and came back at 9570, pro-calcitonin was sent and is pending at this time, CRP is 85.3. His labs before hemodialysis showed creatinine is 7.35, and BUN of 50, and electrolytes are within normal limits. The patient is seen today 12/13/2020 in follow-up in the intensive care unit. He is transferred here yesterday with increasing restlessness increasing oxygen needs and altered mental status. He is currently on 15 L high flow nasal cannula. No current IV fluids. He did receive hemodialysis yesterday with 2.5 L removed. Plan is for repeat hemodialysis today. Chest x-ray continues to show patchy bilateral densities within the lungs. Stable compared to previous. Right-sided PICC line in place. Urine culture revealed no growth. Blood cultures revealed no growth. White count 7.5. Hemoglobin 9.6. Sodium 135. Potassium 3.9. Creatinine 4.88. He remains on DuoNeb inhalations, Pulmicort and Perforomist inhalations, IV Solu-Medrol. Antibiotics in the form of daptomycin. Objective - Vital Signs Vital signs: Vital Signs Temp 98.3 F 12/13/20 03:00 Pulse 74 12/13/20 09:30 Resp 12 12/13/20 09:00 BP 151/106 12/13/20 09:00 Pulse Ox 95 12/13/20 09:00 Intake & Output 12/12/20 12/13/20 12/13/20 18:59 06:59 18:59 Intake Total 50 500 110.853 Output Total 2600 475 Balance -2550 25 110.853 Weight 131.542 kg Intake: Intake, IV Titration 50 10.853 Amount DAPTOmycin 800 mg In 50 Sodium Chloride 0.9% 50 ml @ 100 mls/hr IVPB Q48H [facility] Rx#:[id number] Dexmedetomidine/0.9% NaCl 10.853 (Pmx) 400 mcg In Empty Bag 1 bag @ Titrate IV . Q0M [facility] Rx#:[id number] Oral 0 500 100 Output: Urine 100 475 Hemodialysis 2500 Other: # Voids 1 0 - Exam GENERAL EXAM: Confused, agitated at times, not cooperative, 45 -year-old male patient, resting in bed, currently on 15 L high flow nasal cannula HEAD: Normocephalic/atraumatic. EYES: Normal reaction of pupils, equal size. Conjunctiva pink, sclera white. NOSE: Clear with pink turbinates. THROAT: No erythema or exudates. NECK: No masses, no JVD, no thyroid enlargement, no adenopathy. CHEST: No chest wall deformity. Symmetrical expansion. LUNGS: Equal air entry with crackles in the bilateral posterior bases CVS: Regular rate and rhythm, normal S1 and S2, no gallops, no murmurs, no rubs ABDOMEN: Soft, nontender. No hepatosplenomegaly, normal bowel sounds, no guarding or rigidity. EXTREMITIES: No clubbing, no edema, no cyanosis, 2+ pulses and upper and lower extremities. MUSCULOSKELETAL: Muscle strength and tone normal. SPINE: No scoliosis or deformity SKIN: Patient has significant red confluent rash all over patient's face, shoulders, neck, abdomen, back and upper thighs CENTRAL NERVOUS SYSTEM: Agitated. Restless. No focal deficits, tone is normal in all 4 extremities. - Labs CBC & Chem 7: 12/13/20 03:39 12/13/20 03:39 Labs: Abnormal Lab Results - Last 24 Hours (Table) 12/12/20 12/12/20 12/12/20 Range/Units 07:45 07:45 11:39 RBC (4.30-5.90) m/uL Hgb (13.0-17.5) gm/dL Hct (39.0-53.0) % Lymphocytes # (1.0-4.8) k/uL ESR 43 H (0-15) mm/hr ABG pH (7.35-7.45) ABG pO2 (83-108) mmHg ABG HCO3 (21-25) mmol/L ABG Total CO2 (19-24) mmol/L ABG O2 Saturation (94-97) % Sodium (137-145) mmol/L Chloride (98-107) mmol/L BUN (9-20) mg/dL Creatinine (0.66-1.25) mg/dL Glucose (74-99) mg/dL POC Glucose (mg/dL) 118 H (75-99) mg/dL Calcium (8.4-10.2) mg/dL Total Protein (6.3-8.2) g/dL Albumin (3.5-5.0) g/dL Procalcitonin 0.96 H (0.02-0.09) ng/mL 12/12/20 12/12/20 12/12/20 Range/Units 12:14 13:13 17:32 RBC (4.30-5.90) m/uL Hgb (13.0-17.5) gm/dL Hct (39.0-53.0) % Lymphocytes # (1.0-4.8) k/uL ESR (0-15) mm/hr ABG pH 7.49 H (7.35-7.45) ABG pO2 48 L* (83-108) mmHg ABG HCO3 28 H (21-25) mmol/L ABG Total CO2 29 H (19-24) mmol/L ABG O2 Saturation 87.3 L (94-97) % Sodium (137-145) mmol/L Chloride (98-107) mmol/L BUN (9-20) mg/dL Creatinine (0.66-1.25) mg/dL Glucose (74-99) mg/dL POC Glucose (mg/dL) 136 H 170 H (75-99) mg/dL Calcium (8.4-10.2) mg/dL Total Protein (6.3-8.2) g/dL Albumin (3.5-5.0) g/dL Procalcitonin (0.02-0.09) ng/mL 12/12/20 12/13/20 12/13/20 Range/Units 20:34 03:39 03:39 RBC 3.18 L (4.30-5.90) m/uL Hgb 9.6 L D (13.0-17.5) gm/dL Hct 28.3 L (39.0-53.0) % Lymphocytes # 0.5 L (1.0-4.8) k/uL ESR (0-15) mm/hr ABG pH (7.35-7.45) ABG pO2 (83-108) mmHg ABG HCO3 (21-25) mmol/L ABG Total CO2 (19-24) mmol/L ABG O2 Saturation (94-97) % Sodium 135 L (137-145) mmol/L Chloride 97 L (98-107) mmol/L BUN 48 H (9-20) mg/dL Creatinine 4.88 H (0.66-1.25) mg/dL Glucose 180 H (74-99) mg/dL POC Glucose (mg/dL) 155 H (75-99) mg/dL Calcium 8.2 L (8.4-10.2) mg/dL Total Protein 5.3 L (6.3-8.2) g/dL Albumin 3.1 L (3.5-5.0) g/dL Procalcitonin (0.02-0.09) ng/mL 12/13/20 Range/Units 06:35 RBC (4.30-5.90) m/uL Hgb (13.0-17.5) gm/dL Hct (39.0-53.0) % Lymphocytes # (1.0-4.8) k/uL ESR (0-15) mm/hr ABG pH (7.35-7.45) ABG pO2 (83-108) mmHg ABG HCO3 (21-25) mmol/L ABG Total CO2 (19-24) mmol/L ABG O2 Saturation (94-97) % Sodium (137-145) mmol/L Chloride (98-107) mmol/L BUN (9-20) mg/dL Creatinine (0.66-1.25) mg/dL Glucose (74-99) mg/dL POC Glucose (mg/dL) 164 H (75-99) mg/dL Calcium (8.4-10.2) mg/dL Total Protein (6.3-8.2) g/dL Albumin (3.5-5.0) g/dL Procalcitonin (0.02-0.09) ng/mL Microbiology - Last 24 Hours (Table) 12/07/20 16:02 Blood Culture - Preliminary Blood No Growth after 120 hours Assessment and Plan Assessment: Acute on chronic hypoxemic respiratory failure, likely secondary to br onchospasm, fluid overload as well as sleep apnea syndrome, noncompliant with CPAP/BiPAP. Acute kidney injury, fluid overload, hyperkalemia Suspect pickwickian syndrome. Obesity. Possible underlying sepsis secondary to osteomyelitis. Postop day #20, status post L4-L5 vision, with L4 through S1 fusion. Also, there was placement of antibiotics spacer. Diffuse truncal rash, possibly consistent with "red man" syndrome secondary to vancomycin infusion. History of hypertension. History of chronic back pain. Altered mentation, confusion and agitation, likely related to toxic metabolic encephalopathy Plan: The patient was seen and evaluated by Dr. Conroy The patient remains quite agitated and restless headwaitress at the bedside We'll initiate Precedex Also add Seroquel 50 mg twice a day Plan is for hemodialysis again today Continue bronchodilators, IV Solu-Medrol, daptomycin I, the cosigning physician, performed a history & physical examination of the patient. Lungs sounds with crackles in the bilateral posterior bases. Maintaining good O2 saturations in the 90s on 15 L high flow nasal cannula. I discussed the assessment and plan of care with my nurse practitioner, Kathleen Davidson. I attest to the above note as dictated by her.
[2020-12-13] MEDS: QUEtiapine 50 MG TAB PO SCH ×2 (11:28→21:27)
[2020-12-13 12:39] LABS: Glucose,Whole Blood 145 mg/dL (75-99)
--- NOTE | 2020-12-13 16:35 | PN ---
PROGRESS NOTE DATE OF SERVICE: 12/13/2020 REASON FOR FOLLOWUP: 1. Lumbar paraspinal abscess. 2. Drug rash. INTERVAL HISTORY: The patient is currently afebrile. Patient noted to be slightly agitated as he wants to leave. He is currently on a high-flow oxygen as the patient could not tolerate or refused his BiPAP. No vomiting or diarrhea or any other changes reported by nursing staff. PHYSICAL EXAMINATION: Blood pressure 126/100 with a pulse of 80, temperature 97.8. He is 92% on 15 L high- flow oxygen. General description is a middle-aged male lying in bed in no distress. RESPIRATORY SYSTEM: Unlabored breathing, clear to auscultation anteriorly. HEART: S1, S2. Regular rate and rhythm. ABDOMEN: Soft, no tenderness. LABS: Hemoglobin is 9.6. White count 7.5. BUN of 48, creatinine is 4.88. DIAGNOSTIC IMPRESSION AND PLAN: 1. Patient with lumbar paraspinal abscess, culture positive for Staphylococcus epidermidis oxacillin resistant and the patient is currently on daptomycin. 2. Drug rash. Related to vancomycin, has been discontinued. 3. Mental status changes multifactorial. Had shown some clinical improvement. Sister was at bedside. All her questions and concerns were answered in layman's terms. MMODL / IJN: [id number] / PRINCE
--- NOTE | 2020-12-13 17:05 | PN ---
PROGRESS NOTE Patient is seen for followup for acute kidney injury secondary to vancomycin toxicity. Patient is currently seen on dialysis. He is tolerating his treatment fairly well. He has been quite agitated and just received some Ativan. Urine output for 24 hours was about 600 mL. This is patient's third treatment of dialysis. We did remove about 3.3 L. PHYSICAL EXAMINATION: On examination today, blood pressure was 119/82, heart rate 78 per minute. Patient is afebrile. EXAMINATION OF THE HEART: S1 and S2. EXAMINATION OF LUNGS: Bilateral breath sounds are heard. Decreased breath sounds at bases. ABDOMEN: Soft, obese. Examination of lower extremities shows improved edema. Generalized rash is noted all over. Rash appears to be better. Patient is sleeping. He is arousable. He has been moving all 4 extremities. LABS: Sodium 135, potassium 3.9, chloride 97, BUN 48, serum creatinine 4.88, hemoglobin 9.6 g/dL. ASSESSMENT: 1. Acute kidney injury secondary to vancomycin toxicity, also exacerbated by use of NSAIDs along with hypotension and CAROL inhibitors. Nonoliguric. Urine output seems to have improved. We will continue with daily dialysis for now. The patient was quite uremic and had rapid worsening of his renal function. Vancomycin level was at 60. 2. Uremia with mental status changes, slowly improving. 3. Volume overload, status post dialysis, improved. We have had about 8 L of fluid removed over the last 3 days. 4. Lumbar spine abscess with wound culture growing Staphylococcus epidermidis resistant to oxacillin, maintained on antibiotics, being followed by ID, currently on daptomycin. PLAN: Repeat hemodialysis in a.m. Continue with the IV Lasix. Repeat labs in a.m. Continue to avoid nephrotoxic agents. MMODL / IJN: [id number] /
--- NOTE | 2020-12-13 20:59 | P.PN ---
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 Patient states that when she had GI bleed she had similar symptoms and presents to ER for evaluation. Patient states that she was having some dark-colored stools during the last 2 days which she attributes to her food intake. Patient also complaining of shortness of breath with exertion. No chest pain. On and off leg swelling currently denied any leg swelling. No fever no chills. No cough or sputum production. No recent illnesses or infections. No recent travel. Chest x-ray showed no evidence of acute pulmonary disease EKG showed normal sinus rhythm with left atrial enlargement. Patient is has history of heart murmur for which patient was seen by cardiology in the past. Laboratory showed hemoglobin level was 6.5 on admission and FOBT positive. BUN 14 creatinine 0.81 potassium 4.5 sodium 136 and blood sugar is 214 and magnesium 1.1 and calcium 10.4 coronavirus PCR is not detected. 12/07/2020 Patient is currently sitting in a chair. Awake alert oriented x3. Patient was started on capsule endoscopy study. Denied any complaints abdominal pain. Hemoglobin is at 7.0 today. No headache or dizziness or lightheadedness. GI is following. Continue insulin sliding scale and blood sugar control. 12/08/2020 Patient is currently resting in the bed comfortably. Denied any complaints of nausea vomiting or abdominal pain or diarrhea. Patient did have brown bowel movement today. Hemoglobin level is 7.1 today. Report pending for capsule endoscopy. GI is on board. Patient was started on oral diet and adjust insulin dose. subjective 12/09/20 this is a pleasant 45 years old male who presents because of fever and generalized macular papular rash , thought to be secondary to vancomycin toxicity , patient was on vancomycin for lumbar abscess , he is a status post laminectomy secondary to staph epidermidis resistant to oxacillin. Also with acute kidney injury and creatinine is 7.8 today with nephrology on the case and possible hemodialysis patient today he has some sleep breathing difficulty , he states that he has s leep apnea but not using BiPAP/CPAP at home. he denies previous diagnosis of COPD however his cutting back his smoking from 1.5 down to 0.5 pack per day , however patient is already on Solu-Medrol 60 mg 4 times a day for his rash He is a little short of breath today. No chest pain or coughing. No abdominal pain. He thinks his rash is the same but it itching improved , although is not resolved completely. Also he is on daptomycin and gentle hydration with normal saline at 50 mL per hour ID team and sawmill hand teams the case 12/10/2020 Patient still with some respiratory distress, he is on BiPAP overnight. This will help decrease air intraorally with scattered wheezing. His still on Solu- Medrol His extremity and trunk rash is better. He is for Right inguinal catheter was placed for hemodialysis. Patient most likely is going for hemodialysis per nephrology team. She denies any other new complaints, no chest pain, he denies abdominal pain, no nausea vomiting or diarrhea. No fever Orthopedic team input is appreciated and they recommended CT of the lumbar spine 12/11/2020 Patient is still short of breath especially with exertion, still have expiratory wheezing with prolonged expiration and continue on Solu-Medrol 60 mg and daptomycin for that His rash is significantly improving and fading away with some scale and he is hemodynamically stable however he needs 6 L of oxygen to keep saturation at 94% WBC is back to normal today at 8.9. remains on daptomycin for lumbar abscess, CAT scan of the lumbar spine ordered by orthopedic team is pending. ESR IV fluid was stopped and now he is currently receiving Lasix 40 mg daily. patient received hemodialysis yesterday and today. 12/12/2020 Today patient was more confused and he still the Neck and dyspneic with extensive expiratory wheezing. His saturation was low 90s, however his oxygen requirement increased to 15 L via nonrebreather. With ABG showing pH of 7.49 slightly elevated and low pO2 and 48 and pCO2 of 28. Chest x-ray: Showing diffuse bilateral infiltrates suspicious for diffuse pneumonia which is is unl ikely and most likely patient has fluid overload. Labs showing normal WBC at 8.1K, hemoglobin 12.3. BMP is stable with normal electrolytes. Creatinine is expected to be high 7.3. Sugar control 118-186. Liver enzymes not elevated. Patient remains on daptomycin, Solu-Medrol 60 mg and Lasix 40 mg IV daily. Most likely patient will go to the intensive care unit for pulmonary team recommendations 11/12/2020 Patient both to the ICU yesterday. Patient is awake, he looks a little upset, he keeps his oxygen off and asked him to put it back but he refuses after I explained the risk for him. Sitter At bedside He denies any pain. He still feels short of breath with expiratory wheezing. Yesterday he was on 15 L oxygen via nasal cannula which was the same but during the evening his requirement went down to 10 L via nasal cannula. Labs and glucose looks stable. Continue with Lasix 80 mg IV per sawmill hand. Also he is on Solu-Medrol 40 mg IV twice daily and daptomycin. patient to continue with hemodialysis today and tomorrow per sawmill hand Review of systems CONSTITUTIONAL: No fever, no malaise, no fatigue. HEENT: No recent visual problems or hearing problems. Denied any sore throat. CARDIOVASCULAR: No orthopnea, PND, no palpitations, no syncope. -PULMONARY: Positive for shortness of breath, no cough, no hemoptysis. GASTROINTESTINAL: No diarrhea, no nausea, no vomiting, no abdominal pain. Normoactive bowel sounds. NEUROLOGICAL: No headaches, no weakness, no numbness. Active Medications Generic Name Dose Route Start Last Admin Trade Name Freq PRN Reason Stop Dose Admin Acetaminophen 650 mg 12/07/20 16:47 12/08/20 22:18 Acetaminophen Tab 325 Mg Tab PO 650 mg Q6HR PRN Administration Mild Pain or Fever > 100.5 Albuterol/Ipratropium 3 ml 12/09/20 16:00 12/13/20 20:16 Ipratropium-Albuterol 3 Ml Neb INHALATION Not Given RT-QID ZECHARIAH Albuterol/Ipratropium 3 ml 12/09/20 13:03 Ipratropium-Albuterol 3 Ml Neb INHALATION RT-Q2H PRN Shortness Of Breath Or Wheezing Bisacodyl 5 mg 12/07/20 19:33 Bisacodyl 5 Mg Tablet.Dr PO DAILY PRN Constipation Budesonide 1 mg 12/09/20 20:00 12/13/20 20:16 Budesonide 1 Mg/2 Ml Nebu INHALATION Not Given RT-BID ZECHARIAH Citalopram Hydrobromide 20 mg 12/08/20 09:00 12/13/20 08:17 Citalopram Hydrobromide 20 Mg Tab PO 20 mg DAILY ZECHARIAH Administration Formoterol Fumarate 20 mcg 12/09/20 20:00 12/13/20 20:16 Formoterol Fumarate 20 Mcg/2 Ml Nebu INHALATION Not Given RT-BID ZECHARIAH Furosemide 80 mg 12/13/20 09:00 12/13/20 08:17 Furosemide 10 Mg/Ml 4 Ml Vial IV 40 mg DAILY ZECHARIAH Administration Haloperidol Lactate 2 mg 12/12/20 13:54 12/13/20 18:03 Haloperidol Lactate 5 Mg/Ml 1 Ml Vial IVP 2 mg Q4HR PRN Administration Agitation or Acute Psychosis Heparin Sodium (Porcine) 5,000 unit 12/09/20 10:45 12/13/20 08:17 Heparin Sodium,Porcine 5,000 Unit/Ml 1 Ml Vial SQ 5,000 unit Q12HR ZECHARIAH Administration Daptomycin 800 mg/ Sodium 50 mls @ 100 mls/hr 12/09/20 20:00 12/11/20 21:07 Chloride IVPB 100 mls/hr Q48H ZECHARIAH Administration Protocol Dexmedetomidine HCl 400 mcg/ 100 mls @ 0 mls/hr 12/13/20 08:30 12/13/20 20:57 IV Solution IV 12/14/20 08:31 0.7 mcg/kg/hr .Q0M ZECHARIAH 23.02 mls/hr Administration Protocol Titrate Insulin Aspart 0 unit 12/10/20 12:30 12/13/20 19:29 Insulin Aspart (Novolog) 100 Unit/Ml Vial SQ Not Given ACHS [facility] Protocol Lidocaine 1 patch 12/07/20 19:33 Lidocaine 5% Patch TOPICAL DAILY PRN Pain Methylprednisolone Sodium Succinate 40 mg 12/12/20 21:00 12/13/20 08:16 Methylprednisolone Sod Succi 40 Mg/Ml 1 Ml Vial IV 40 mg Q12HR ZECHARIAH Administration Metoprolol Tartrate 25 mg 12/08/20 09:00 12/13/20 08:17 Metoprolol Tartrate 25 Mg Tab PO 25 mg DAILY ZECHARIAH Administration Naloxone HCl 0.2 mg 12/07/20 16:47 Naloxone 0.4 Mg/Ml 1 Ml Vial IV Q2M PRN Opioid Reversal Oxycodone/Acetaminophen 1 each 12/07/20 16:34 12/11/20 21:08 Oxycodone-Apap 10-325mg 1 Each Tab PO 1 each Q4H PRN Administration Pain Polyethylene Glycol 17 gm 12/07/20 19:33 Polyethylene Glycol 3350 17 Gm Powd.Pack PO DAILY PRN Constipation Quetiapine Fumarate 50 mg 12/13/20 11:15 12/13/20 11:28 Quetiapine 50 Mg Tab PO 50 mg BID ZECHARIAH Administration Senna/Docusate Sodium 1 each 12/07/20 19:33 Sennosides-Docusate Sodium 1 Each Tab PO BID PRN Constipation Objective - Vital Signs Vital signs: Vital Signs Temp 97.8 F 12/13/20 13:25 Pulse 68 12/13/20 17:00 Resp 17 12/13/20 17:00 BP 155/92 12/13/20 16:00 Pulse Ox 97 12/13/20 17:00 Intake & Output 12/12/20 12/13/20 12/13/20 18:59 06:59 18:59 Intake Total 50 500 606.179 Output Total 2600 475 3700 Balance -2550 25 -3093.821 Weight 131.542 kg Intake: Intake, IV Titration 50 56.179 Amount DAPTOmycin 800 mg In 50 Sodium Chloride 0.9% 50 ml @ 100 mls/hr IVPB Q48H ZECHARIAH Rx#:[id number] Dexmedetomidine/0.9% NaCl 56.179 (Pmx) 400 mcg In Empty Bag 1 bag @ Titrate IV . Q0M ZECHARIAH Rx#:[id number] Oral 0 500 550 Output: Urine 100 475 400 Hemodialysis 2500 3300 Other: # Voids 1 0 - Exam -GENERAL: The patient is alert and oriented x3, not in any acute distress. Obese HEENT: Pupils are round and equally reacting to light. EOMI. No scleral icterus. No conjunctival pallor. Normocephalic, atraumatic. No pharyngeal erythema. No thyromegaly. CARDIOVASCULAR: S1 and S2 present. No murmurs, rubs, or gallops. PULMONARY: Chest is clear to auscultation, no wheezing or crackles. ABDOMEN: Soft, nontender, nondistended, normoactive bowel sounds. No palpable organomegaly. -MUSCULOSKELETAL: No joint swelling or deformity. Midline lower back scar, healed with no drainage or open wound EXTREMITIES: No cyanosis, clubbing, or pedal edema. NEUROLOGICAL: Gross neurological examination did not reveal any focal deficits. -SKIN: no petechiae. He has extensive rash, maculopapular previous more confluent on the chest, back and extending into most of the abdomen as well as extremities. No mouth ulcer -Genitalia: Patient refused - Labs CBC & Chem 7: 12/13/20 03:39 12/13/20 03:39 Labs: Abnormal Lab Results - Last 24 Hours (Table) 12/12/20 12/12/20 12/13/20 Range/Units 07:45 20:34 03:39 RBC 3.18 L (4.30-5.90) m/uL Hgb 9.6 L D (13.0-17.5) gm/dL Hct 28.3 L (39.0-53.0) % Lymphocytes # 0.5 L (1.0-4.8) k/uL Sodium (137-145) mmol/L Chloride (98-107) mmol/L BUN (9-20) mg/dL Creatinine (0.66-1.25) mg/dL Glucose (74-99) mg/dL POC Glucose (mg/dL) 155 H (75-99) mg/dL Calcium (8.4-10.2) mg/dL Total Protein (6.3-8.2) g/dL Albumin (3.5-5.0) g/dL Procalcitonin 0.96 H (0.02-0.09) ng/mL 12/13/20 12/13/20 12/13/20 Range/Units 03:39 06:35 12:38 RBC (4.30-5.90) m/uL Hgb (13.0-17.5) gm/dL Hct (39.0-53.0) % Lymphocytes # (1.0-4.8) k/uL Sodium 135 L (137-145) mmol/L Chloride 97 L (98-107) mmol/L BUN 48 H (9-20) mg/dL Creatinine 4.88 H (0.66-1.25) mg/dL Glucose 180 H (74-99) mg/dL POC Glucose (mg/dL) 164 H 145 H (75-99) mg/dL Calcium 8.2 L (8.4-10.2) mg/dL Total Protein 5.3 L (6.3-8.2) g/dL Albumin 3.1 L (3.5-5.0) g/dL Procalcitonin (0.02-0.09) ng/mL Microbiology - Last 24 Hours (Table) 12/07/20 16:02 Blood Culture - Preliminary Blood No Growth after 120 hours Assessment and Plan Assessment: Nonoliguric Acute kidney injury due to ATN secondary to hypotension and toxicity to vancomycin.is getting hemodialysis Ongoing and recent lumbar abscess status post laminectomy secondary to staph epidermidis resistant to oxacillin Acute COPD exacerbation and possible obstructive sleep apnea, continue with CPAP/BiPAP and steroids Echo type of sick respiratory failure secondary to above Maculopapular rash, improving Lactic acidosis, resolved Mild Hypovolemic hyponatremia Recent L4- S1 fusion surgery and revision and incision and drainage with antibiotic spacer. Hypertension currently not hypertensive Morbid obesity with BMI 41.6 Possible history of obstructive sleep apnea as per patient, not on CPAP and BiPAP Plan: This is a pleasant 45 years old male who presents with vancomycin toxicity, lumbar abscess, ACI rash. Continue with daptomycin as per ID team recommendation. Continue with Solu-Medrol . 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 Patient will be monitored in inte nsive care unit orthopedic input is appreciated and follow-up CAT scan of the lumbar spine Continued with pain management and follow up closely. Labs and medication were reviewed.. Continue same treatment. Continue with symptomatic treatment. Resume home medication. Monitor lytes and vitals. DVT and GI prophylaxis. Further recommendationsas per clinical course of the patient DVT prophylaxis: Subcutaneous heparin GI Prophylaxis: Pepcid PT/OT: Home health care versus inpatient rehab Prognosis is guarded
[2020-12-13 21:21] LABS: Glucose,Whole Blood 144 mg/dL (75-99)
[2020-12-14] MEDS: DEXMEDETOMIDINE/0.9% NACL(PMX) 400 MCG in EMPTY BAG 1 BAG IV SCH ×2 (00:53→06:39)
[2020-12-14 04:27] LABS: Basophils % (A) 0 %; Eosinophils # (A) 0.1 k/uL (0-0.7); Eosinophils % (A) 1 %; HCT 31.4 % (39.0-53.0); HGB 10.4 gm/dL (13.0-17.5); Lymphocytes # (A) 0.6 k/uL (1.0-4.8); Lymphocytes % (A) 7 %; MCH 29.3 pg (25.0-35.0); MCHC 33.2 g/dL (31.0-37.0); MCV 88.3 fL (80.0-100.0); Mean Platelet Volume 7.6; Monocytes # (A) 0.6 k/uL (0-1.0); Monocytes % (A) 7 %; Neutrophils # (A) 7.8 k/uL (1.3-7.7); Neutrophils % (A) 85 %; Platelet Count 248 k/uL (150-450); RBC 3.55 m/uL (4.30-5.90); RDW 14.1 % (11.5-15.5); WBC 9.2 k/uL (3.8-10.6)
[2020-12-14 04:40] LABS: Albumin 3.2 g/dL (3.5-5.0); Potassium 4.5 mmol/L (3.5-5.1); Total Bilirubin 0.6 mg/dL (0.2-1.3); Total Protein 5.5 g/dL (6.3-8.2)
[2020-12-14 06:05] LABS: Erythrocyte Sedimentation Rate 28 mm/hr (0-15)
--- NOTE | 2020-12-14 06:33 | XR ---
EXAMINATION TYPE: XR chest 1V portable DATE OF EXAM: 12/14/2020 CLINICAL HISTORY: Difficulty breathing progress study. TECHNIQUE: Single AP portable semiupright view of the chest is obtained. COMPARISON: Chest x-ray from one day earlier and older studies FINDINGS: Stable right-sided PICC line. Low lung volumes with faint multifocal opacities bilaterally remain present. No pleural effusion or pneumothorax seen bilaterally. Patient remains rotated to rig ht. Cardiac silhouette size is stable and within normal limits. Osseous structures are intact. IMPRESSION: Low lung volumes and faint bilateral multifocal infiltrates remain present. No significan t interval change from one day earlier.
[2020-12-14 06:51] LABS: Glucose,Whole Blood 152 mg/dL (75-99)
[2020-12-14] MEDS: INSULIN ASPART (NovoLOG) 100 UNIT/ML VIAL SQ SCH ×4 (06:57→20:16)
[2020-12-14] MEDS: QUEtiapine 50 MG TAB PO SCH (07:46)
[2020-12-14] MEDS: HALOPERIDOL LACTATE 5 MG/ML 1 ML VIAL IVP PRN ×3 (07:50→19:27)
[2020-12-14] MEDS: BUDESONIDE 1 MG/2 ML NEBU INHALATION SCH ×2 (08:16→19:58)
[2020-12-14] MEDS: IPRATROPIUM-ALBUTEROL 3 ML NEB INHALATION SCH ×4 (08:16→19:58)
[2020-12-14] MEDS: FORMOTEROL FUMARATE 20 MCG/2 ML NEBU INHALATION SCH ×3 (08:16→20:38)
[2020-12-14] MEDS: FUROSEMIDE 10 MG/ML 4 ML VIAL IV SCH (08:26)
[2020-12-14] MEDS: HEPARIN SODIUM,PORCINE 5,000 UNIT/ML 1 ML VIAL SQ SCH ×2 (08:27→20:16)
[2020-12-14] MEDS: CITALOPRAM HYDROBROMIDE 20 MG TAB PO SCH (08:27)
[2020-12-14] MEDS: METOPROLOL TARTRATE 25 MG TAB PO SCH (08:28)
[2020-12-14] MEDS: QUEtiapine 100 MG TAB PO SCH ×2 (08:28→20:16)
--- NOTE | 2020-12-14 08:53 | P.PN ---
Subjective Patient is seen in follow-up for acute kidney injury, currently hemodialysis dependent. Started on hemodialysis 12/11/2020. Patient remains confused and quite agitated. Urine output 150 mL in a 12 hour shift. Hemodynamically stable. Vital signs are stable. General: The patient appeared well nourished and normally developed. HEENT: Head exam is unremarkable. Neck is without jugular venous distension. LUNGS: Breath sounds decreased. HEART: Rate and Rhythm are regular. ABDOMEN: Soft, nontender. EXTREMITITES: Trace edema. Objective - Vital Signs Vital signs: Vital Signs Temp 97.6 F 12/14/20 04:00 Pulse 62 12/14/20 08:36 Resp 19 12/14/20 08:00 BP 147/124 12/14/20 08:00 Pulse Ox 97 12/14/20 08:00 Intake & Output 12/13/20 12/14/20 12/14/20 18:59 06:59 18:59 Intake Total 698.780 430.545 240 Output Total 3700 150 Balance -3001.220 280.545 240 Intake: Intake, IV Titration 148.780 190.545 Amount Dexmedetomidine/0.9% NaCl 148.780 190.545 (Pmx) 400 mcg In Empty Bag 1 bag @ Titrate IV . Q0M ZECHARIAH Rx#:[id number] Oral 550 240 240 Output: Urine 400 150 Hemodialysis 3300 Other: # Voids 0 0 0 - Labs CBC & Chem 7: 12/14/20 03:55 12/14/20 03:55 Labs: Abnormal Lab Results - Last 24 Hours (Table) 12/13/20 12/13/20 12/14/20 Range/Units 12:38 21:19 03:55 RBC 3.55 L (4.30-5.90) m/uL Hgb 10.4 L (13.0-17.5) gm/dL Hct 31.4 L (39.0-53.0) % Neutrophils # 7.8 H (1.3-7.7) k/uL Lymphocytes # 0.6 L (1.0-4.8) k/uL ESR 28 H (0-15) mm/hr Sodium (137-145) mmol/L BUN (9-20) mg/dL Creatinine (0.66-1.25) mg/dL Glucose (74-99) mg/dL POC Glucose (mg/dL) 145 H 144 H (75-99) mg/dL C-Reactive Protein (<10.0) mg/L Total Protein (6.3-8.2) g/dL Albumin (3.5-5.0) g/dL 12/14/20 12/14/20 Range/Units 03:55 06:49 RBC (4.30-5.90) m/uL Hgb (13.0-17.5) gm/dL Hct (39.0-53.0) % Neutrophils # (1.3-7.7) k/uL Lymphocytes # (1.0-4.8) k/uL ESR (0-15) mm/hr Sodium 136 L (137-145) mmol/L BUN 53 H (9-20) mg/dL Creatinine 3.92 H (0.66-1.25) mg/dL Glucose 163 H (74-99) mg/dL POC Glucose (mg/dL) 152 H (75-99) mg/dL C-Reactive Protein 32.0 H (<10.0) mg/L Total Protein 5.5 L (6.3-8.2) g/dL Albumin 3.2 L (3.5-5.0) g/dL Microbiology - Last 24 Hours (Table) 12/07/20 16:02 Blood Culture - Final Blood No Growth after 144 hours Assessment and Plan Plan: Assessment: 1. Acute kidney injury secondary to ATN secondary to vancomycin toxicity and further worsened with the use of nonsteroidals, Shayne inhibitors as well as hypotension. Started on hemodialysis December 11. Baseline creatinine near 1. 2. Altered mental status with component of uremia. 3. Volume overload. Improving with ultrafiltration. 4. 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 Plan: Currently seen while undergoing hemodialysis. Next treatment on Wednesday. Maintain IV Lasix. Continue to monitor for renal recovery.
[2020-12-14] MEDS ORDERED: HEPARIN SODIUM,PORCINE 5,000 UNIT/ML 1 ML VIAL ONE (09:00)
--- NOTE | 2020-12-14 09:25 | P.PN ---
Subjective Progress Note Date: 12/14/20 Principal diagnosis: Acute hypoxic respiratory failure, obstructive sleep apnea, fluid volume overload, acute kidney injury This is a 45-year-old male who presented to the emergency department on September 06 complaining of fever, and a rash. He is 15 days postop revision of L4-L5 with L4 through S1 fusion, and placement of antibiotic spacer. We actually know this patient because he came back from the operating room initially to the intensive care unit on the ventilator. He was quite rambunctious, and the patient was eventually extubated without a formal spontaneous breathing trial. The patient was apparently started on vancomycin 3 times a day for osteomyelitis. The patient presented to the emergency room on the with 2 days of fever and rash. The rash looks like a red man syndrome rash. It was extending in the back of his neck and extending down his whole back and sides of his chest. The surgery was done by Dr. Jama, and he recently saw him in the office. We were called in today because there was an "A" team called on the patient. The patient was apparently manifesting some respiratory distress. One of the charge nurses from the ICU, thought the patient was just a deep sleeper and probably suffering from some sleep apnea syndrome. The patient apparently does have a history of sleep apnea, but does not wear his CPAP/BiPAP device. She did not feel like the patient needed to be transferred down to the intensive care unit. Anyway, and we saw the patient, the patient was a bit sleepy, we recommended Solu-Medrol, Perforomist, and Pulmicort updrafts, and DuoNeb 4 times a day and when necessary. In addition, a blood gas was ordered but I didn't think it was necessary. Finally, we recommended BiPAP at 12/5 and 50%. We encouraged the patient to wear it until he started doing better. We'll be went to go see him, his saturations were in the low 90s, and at that time, he was on 6 L nasal cannula. He did arouse and respond appropriately. On 12/10/2020 patient seen in follow-up. He remains on BiPAP support, tolerating it well, resting comfortably in bed, BiPAP pressures of 12 and 5 and 50%, his lung sounds are diminished, he is a urine output has been diminished, his renal function continues to worsen, today's BUN is up to 73 and creatinine is 9.8 with potassium of 5.7, temporary emergent hemodialysis catheter was placed in the femoral area, and patient will have his hemodialysis treatment today, the rest of his blood work has been reviewed, showing white blood cell count of 15, hemoglobin is 11. His urinalysis showed possibility of a urinary tract infection, his blood and urine cultures have been negative, gastric chest x-ray showed bilateral patchy airspace disease, low lung volumes. Patient remains on daptomycin, and treatments, IV steroids. He is on IV Lasix 40 mg daily. Has not had significant diuresis On 12/11/2020 patient seen in follow-up, he is currently off BiPAP support, he is on 6 L of oxygen, he had hemodialysis treatment yesterday with removal of 1 L of fluid, and today he is having another session of hemodialysis with a goal of removing 2 L, he is still be drowsy, but more responsive to verbal stimulation, he has had no fever or chills, no recent chest x-ray. Remains on IV diuretics with Lasix 40 mg daily, IV steroids and breathing treatments. Continues on labs reviewed, slight improvement in renal profile, with B1 is 65 and creatinine of 8.1, potassium is 4.7. She continues on daptomycin, vancomycin has been discontinued, he is on IV steroids, and Benadryl for persistent rash possibly related to vancomycin. On 12/12/2020 patient is seen in follow-up on medical surgical floor, yesterday he had hemodialysis done with removal of 2.5 L of fluid, and today is having another hemodialysis session with the goal of removing 2.5 L, he is more awake today, he is currently on 6 L, he is agitated at times, and removes his oxygen. At times confused, at times not cooperative. Chest x-ray today shows diffuse interstitial pattern. Patient remains on daptomycin, but has significant rash, which looks very dry flaky on today's exam. He continues on IV Solu-Medrol every 6, Benadryl, he is given some pain medications. Still seems generally swollen, more gas was completed following hemodialysis recurrent showing pO2 of only 40%, pCO2 of 37, pH of 7.49 and this was done and FiO2 of 44% and subsequently his FiO2 was increased up to 100% nonrebreather mask. In view of his cardiorespiratory status, encephalopathy, confusion and agitation, moving his oxygen mask off we decided to move into the intensive care unit for closer monitoring. ProBNP was ordered and came back at 9570, pro-calcitonin was sent and is pending at this time, CRP is 85.3. His labs before hemodialysis showed creatinine is 7.35, and BUN of 50, and electrolytes are within normal limits. The patient is seen today 12/13/2020 in follow-up in the intensive care unit. He is transferred here yesterday with increasing restlessness increasing oxygen needs and altered mental status. He is currently on 15 L high flow nasal cannula. No current IV fluids. He did receive hemodialysis yesterday with 2.5 L removed. Plan is for repeat hemodialysis today. Chest x-ray continues to show patchy bilateral densities within the lungs. Stable compared to previous. Right-sided PICC line in place. Urine culture revealed no growth. Blood cultures revealed no growth. White count 7.5. Hemoglobin 9.6. Sodium 135. Potassium 3.9. Creatinine 4.88. He remains on DuoNeb inhalations, Pulmicort and Perforomist inhalations, IV Solu-Medrol. Antibiotics in the form of daptomycin. The patient is seen today 12/14/2020 in follow-up in the intensive care unit. He is currently resting comfortably in bed. He is quite restless and agitated throughout the night. Security assistance was required. He has received Haldol, Seroquel, on Precedex at 0.7 mcg/kg per hour. He is requiring 10 L high flow nasal cannula to maintain O2 saturations in the 90s. Chest x-ray reveals faint bilateral multifocal infiltrates. No significant change. Urine culture revealed no growth. Blood culture revealed no growth. White count 9.2. Hemoglobin 10.4. Sodium 136. Potassium 4.5. Creatinine 3.92. He remains on d aptomycin. IV diuretics. Bronchodilators and IV Solu-Medrol. Objective - Vital Signs Vital signs: Vital Signs Temp 97.6 F 12/14/20 04:00 Pulse 62 12/14/20 08:36 Resp 19 12/14/20 08:00 BP 147/124 12/14/20 08:00 Pulse Ox 97 12/14/20 08:00 Intake & Output 12/13/20 12/14/20 12/14/20 18:59 06:59 18:59 Intake Total 698.780 430.545 240 Output Total 3700 150 Balance -3001.220 280.545 240 Intake: Intake, IV Titration 148.780 190.545 Amount Dexmedetomidine/0.9% NaCl 148.780 190.545 (Pmx) 400 mcg In Empty Bag 1 bag @ Titrate IV . Q0M ZECHARIAH Rx#:[id number] Oral 550 240 240 Output: Urine 400 150 Hemodialysis 3300 Other: # Voids 0 0 0 - Exam GENERAL EXAM: Confused, agitated at times, not cooperative, 45 -year-old male patient, resting in bed, currently on 10 L high flow nasal cannula HEAD: Normocephalic/atraumatic. EYES: Normal reaction of pupils, equal size. Conjunctiva pink, sclera white. NOSE: Clear with pink turbinates. THROAT: No erythema or exudates. NECK: No masses, no JVD, no thyroid enlargement, no adenopathy. CHEST: No chest wall deformity. Symmetrical expansion. LUNGS: Equal air entry with crackles in the bilateral posterior bases CVS: Regular rate and rhythm, normal S1 and S2, no gallops, no murmurs, no rubs ABDOMEN: Soft, nontender. No hepatosplenomegaly, normal bowel sounds, no guarding or rigidity. EXTREMITIES: No clubbing, no edema, no cyanosis, 2+ pulses and upper and lower extremities. MUSCULOSKELETAL: Muscle strength and tone normal. SPINE: Dressing to previous lumbar surgery dry and intact. No scoliosis or deformity SKIN: Patient has significant red confluent rash all over patient's face, shoulders, neck, abdomen, back and upper thighs CENTRAL NERVOUS SYSTEM: Agitated. Restless. No focal deficits, tone is normal in all 4 extremities. - Labs CBC & Chem 7: 12/14/20 03:55 12/14/20 03:55 Labs: Abnormal Lab Results - Last 24 Hours (Table) 12/13/20 12/13/20 12/14/20 Range/Units 12:38 21:19 03:55 RBC 3.55 L (4.30-5.90) m/uL Hgb 10.4 L (13.0-17.5) gm/dL Hct 31.4 L (39.0-53.0) % Neutrophils # 7.8 H (1.3-7.7) k/uL Lymphocytes # 0.6 L (1.0-4.8) k/uL ESR 28 H (0-15) mm/hr Sodium (137-145) mmol/L BUN (9-20) mg/dL Creatinine (0.66-1.25) mg/dL Glucose (74-99) mg/dL POC Glucose (mg/dL) 145 H 144 H (75-99) mg/dL C-Reactive Protein (<10.0) mg/L Total Protein (6.3-8.2) g/dL Albumin (3.5-5.0) g/dL 12/14/20 12/14/20 Range/Units 03:55 06:49 RBC (4.30-5.90) m/uL Hgb (13.0-17.5) gm/dL Hct (39.0-53.0) % Neutrophils # (1.3-7.7) k/uL Lymphocytes # (1.0-4.8) k/uL ESR (0-15) mm/hr Sodium 136 L (137-145) mmol/L BUN 53 H (9-20) mg/dL Creatinine 3.92 H (0.66-1.25) mg/dL Glucose 163 H (74-99) mg/dL POC Glucose (mg/dL) 152 H (75-99) mg/dL C-Reactive Protein 32.0 H (<10.0) mg/L Total Protein 5.5 L (6.3-8.2) g/dL Albumin 3.2 L (3.5-5.0) g/dL Microbiology - Last 24 Hours (Table) 12/07/20 16:02 Blood Culture - Final Blood No Growth after 144 hours Assessment and Plan Assessment: Acute on chronic hypoxemic respiratory failure, likely secondary to bronchospasm, fluid overload as well as sleep apnea syndrome, noncompliant with CPAP/BiPAP. Acute kidney injury, fluid overload, hyperkalemia, requiring hemodialysis. Current creatinine 3.92. Possible underlying sepsis secondary to osteomyelitis. Recent admission for L4 through S1 fusion. Also, developed epidural phlegmon requiring evacuation there was placement of antibiotics spacer. Diffuse truncal rash, possibly consistent with "red man" syndrome secondary to vancomycin infusion. Currently on daptomycin History of hypertension. History of chronic back pain. Suspect pickwickian syndrome. Obesity. Altered mentation, confusion and agitation, likely related to toxic metabolic encephalopathy Plan: The patient was seen and evaluated by Dr. Conroy The patient remains quite agitated and restless Increase Seroquel, wean Precedex Continue Haldol as needed Continue bronchodilators Discontinue IV Solu-Medrol Decrease FiO2 as tolerated Continue daptomycin We will continue to follow I, the cosigning physician, performed a history & physical examination of the patient. Lungs sounds with crackles in the bilateral posterior bases. Maintaining good O2 saturations in the 90s on 10 L high flow nasal cannula. I discussed the assessment and plan of care with my nurse practitioner, Kathleen Davidson. I attest to the above note as dictated by her.
[2020-12-14 11:41] LABS: Glucose,Whole Blood 114 mg/dL (75-99)
--- NOTE | 2020-12-14 12:52 | PN ---
PROGRESS NOTE DATE OF SERVICE: 12/14/2020 REASON FOR FOLLOWUP: 1. Lumbar paraspinal abscess. 2. Drug rash. INTERVAL HISTORY: The patient is currently afebrile. The patient is undergoing dialysis. The patient is hemodynamically stable. Mentation remains to be an issue. Currently in restraints. Unable to provide any reliable history. No vomiting, diarrhea. No changes reported by the nursing staff. PHYSICAL EXAMINATION: Blood pressure is 110/73 with a pulse of 62, temperature is 97.6. He is 95% on 2 L nasal cannula. General description is a middle-aged male lying in bed in no distress. Respiratory system: Unlabored breathing, decreased breath sounds at bases. No wheeze. Heart S1, S2. Regular rate and rhythm. ABDOMEN: Soft, no tenderness. EXTREMITIES: Some edema of the feet. SKIN examination: Rash has decreased in intensity. LABS: Hemoglobin is 10.4, white count 9.2, BUN of 53, creatinine 3.92. DIAGNOSTIC IMPRESSION AND PLAN: Patient with paraspinal abscess status post drainage. Culture with Staph epi. The patient is on vancomycin. He developed rash and nephrotoxicity with the patient is currently off the vancomycin, on IV daptomycin that will be continued. Kidney function seems to have shown some clinical improvement. Continue supportive care. MMODL / IJN: [id number] /
[2020-12-14] MEDS: oxyCODONE-APAP 10-325MG 1 EACH TAB PO PRN ×3 (13:21→20:15)
[2020-12-14 18:03] LABS: Glucose,Whole Blood 141 mg/dL (75-99)
--- NOTE | 2020-12-14 18:35 | P.PN ---
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 Patient states that when she had GI bleed she had similar symptoms and presents to ER for evaluation. Patient states that she was having some dark-colored stools during the last 2 days which she attributes to her food intake. Patient also complaining of shortness of breath with exertion. No chest pain. On and off leg swelling currently denied any leg swelling. No fever no chills. No cough or sputum production. No recent illnesses or infections. No recent travel. Chest x-ray showed no evidence of acute pulmonary disease EKG showed normal sinus rhythm with left atrial enlargement. Patient is has history of heart murmur for which patient was seen by cardiology in the past. Laboratory showed hemoglobin level was 6.5 on admission and FOBT positive. BUN 14 creatinine 0.81 potassium 4.5 sodium 136 and blood sugar is 214 and magnesium 1.1 and calcium 10.4 coronavirus PCR is not detected. 12/07/2020 Patient is currently sitting in a chair. Awake alert oriented x3. Patient was started on capsule endoscopy study. Denied any complaints abdominal pain. Hemoglobin is at 7.0 today. No headache or dizziness or lightheadedness. GI is following. Continue insulin sliding scale and blood sugar control. 12/08/2020 Patient is currently resting in the bed comfortably. Denied any complaints of nausea vomiting or abdominal pain or diarrhea. Patient did have brown bowel movement today. Hemoglobin level is 7.1 today. Report pending for capsule endoscopy. GI is on board. Patient was started on oral diet and adjust insulin dose. subjective 12/09/20 this is a pleasant 45 years old male who presents because of fever and generalized macular papular rash , thought to be secondary to vancomycin toxicity , patient was on vancomycin for lumbar abscess , he is a status post laminectomy secondary to staph epidermidis resistant to oxacillin. Also with acute kidney injury and creatinine is 7.8 today with nephrology on the case and possible hemodialysis patient today he has some sleep breathing difficulty , he states that he has s leep apnea but not using BiPAP/CPAP at home. he denies previous diagnosis of COPD however his cutting back his smoking from 1.5 down to 0.5 pack per day , however patient is already on Solu-Medrol 60 mg 4 times a day for his rash He is a little short of breath today. No chest pain or coughing. No abdominal pain. He thinks his rash is the same but it itching improved , although is not resolved completely. Also he is on daptomycin and gentle hydration with normal saline at 50 mL per hour ID team and mold repair technician teams the case 12/10/2020 Patient still with some respiratory distress, he is on BiPAP overnight. This will help decrease air intraorally with scattered wheezing. His still on Solu- Medrol His extremity and trunk rash is better. He is for Right inguinal catheter was placed for hemodialysis. Patient most likely is going for hemodialysis per nephrology team. She denies any other new complaints, no chest pain, he denies abdominal pain, no nausea vomiting or diarrhea. No fever Orthopedic team input is appreciated and they recommended CT of the lumbar spine 12/11/2020 Patient is still short of breath especially with exertion, still have expiratory wheezing with prolonged expiration and continue on Solu-Medrol 60 mg and daptomycin for that His rash is significantly improving and fading away with some scale and he is hemodynamically stable however he needs 6 L of oxygen to keep saturation at 94% WBC is back to normal today at 8.9. remains on daptomycin for lumbar abscess, CAT scan of the lumbar spine ordered by orthopedic team is pending. ESR IV fluid was stopped and now he is currently receiving Lasix 40 mg daily. patient received hemodialysis yesterday and today. 12/12/2020 Today patient was more confused and he still the Neck and dyspneic with extensive expiratory wheezing. His saturation was low 90s, however his oxygen requirement increased to 15 L via nonrebreather. With ABG showing pH of 7.49 slightly elevated and low pO2 and 48 and pCO2 of 28. Chest x-ray: Showing diffuse bilateral infiltrates suspicious for diffuse pneumonia which is is unl ikely and most likely patient has fluid overload. Labs showing normal WBC at 8.1K, hemoglobin 12.3. BMP is stable with normal electrolytes. Creatinine is expected to be high 7.3. Sugar control 118-186. Liver enzymes not elevated. Patient remains on daptomycin, Solu-Medrol 60 mg and Lasix 40 mg IV daily. Most likely patient will go to the intensive care unit for pulmonary team recommendations 12/13/2020 Patient both to the ICU yesterday. Patient is awake, he looks a little upset, he keeps his oxygen off and asked him to put it back but he refuses after I explained the risk for him. Sitter At bedside He denies any pain. He still feels short of breath with expiratory wheezing. Yesterday he was on 15 L oxygen via nasal cannula which was the same but during the evening his requirement went down to 10 L via nasal cannula. Labs and glucose looks stable. Continue with Lasix 80 mg IV per mold repair technician. Also he is on Solu-Medrol 40 mg IV twice daily and daptomycin. patient to continue with hemodialysis today and tomorrow per mold repair technician 12/14/2020 Patient ICU still with agitation at time eventually he was sleeping this morning but it was very hard for staff to come down throughout all night. Patient still with dyspnea and expiratory wheezing. And still undergoing hemodialysis today. Because of these his steroids also the Medrol 40 mg once stopped today and his Seroquel was increased to 100 mg twice a day Other than that he is hemodynamically stable.He is saturating 92% on 2 L oxygen via nasal cannula Chest x-ray showing persistent bilateral consolidation or infiltrate, suspicious for pulmonary congestion He remains on daptomycin Next hemodialysis is on Wednesday, while tomorrow Wednesday he will go without treatment Review of systems CONSTITUTIONAL: No fever, no malaise, no fatigue. HEENT: No recent visual problems or hearing problems. Denied any sore throat. CARDIOVASCULAR: No orthopnea, PND, no palpitations, no syncope. -PULMONARY: Positive for shortness of breath, no cough, no hemoptysis. GASTROINTESTINAL: No diarrhea, no nausea, no vomiting, no abdominal pain. Normoactive bowel sounds. NEUROLOGICAL: No headaches, no weakness, no numbness. Active Medications Generic Name Dose Route Start Last Admin Trade Name Freq PRN Reason Stop Dose Admin Acetaminophen 650 mg 12/07/20 16:47 12/08/20 22:18 Acetaminophen Tab 325 Mg Tab PO 650 mg Q6HR PRN Administration Mild Pain or Fever > 100.5 Albuterol/Ipratropium 3 ml 12/09/20 16:00 12/14/20 15:14 Ipratropium-Albuterol 3 Ml Neb INHALATION Not Given RT-QID ZECHARIAH Albuterol/Ipratropium 3 ml 12/09/20 13:03 Ipratropium-Albuterol 3 Ml Neb INHALATION RT-Q2H PRN Shortness Of Breath Or Wheezing Bisacodyl 5 mg 12/07/20 19:33 Bisacodyl 5 Mg Tablet.Dr PO DAILY PRN Constipation Budesonide 1 mg 12/09/20 20:00 12/14/20 08:16 Budesonide 1 Mg/2 Ml Nebu INHALATION 1 mg RT-BID ZECHARIAH Administration Citalopram Hydrobromide 20 mg 12/08/20 09:00 12/14/20 08:27 Citalopram Hydrobromide 20 Mg Tab PO 20 mg DAILY ZECHARIAH Administration Formoterol Fumarate 20 mcg 12/09/20 20:00 12/14/20 08:16 Formoterol Fumarate 20 Mcg/2 Ml Nebu INHALATION 20 mcg RT-BID ZECHARIAH Administration Furosemide 80 mg 12/13/20 09:00 12/14/20 08:26 Furosemide 10 Mg/Ml 4 Ml Vial IV 80 mg DAILY ZECHARIAH Administration Haloperidol Lactate 2 mg 12/12/20 13:54 12/14/20 13:21 Haloperidol Lactate 5 Mg/Ml 1 Ml Vial IVP 2 mg Q4HR PRN Administration Agitation or Acute Psychosis Heparin Sodium (Porcine) 5,000 unit 12/09/20 10:45 12/14/20 08:27 Heparin Sodium,Porcine 5,000 Unit/Ml 1 Ml Vial SQ 5,000 unit Q12HR ZECHARIAH Administration Daptomycin 800 mg/ Sodium 50 mls @ 100 mls/hr 12/09/20 20:00 12/13/20 21:27 Chloride IVPB 100 mls/hr Q48H ZECHARIAH Administration Protocol Insulin Aspart 0 unit 12/10/20 12:30 12/14/20 17:58 Insulin Aspart (Novolog) 100 Unit/Ml Vial SQ 1 unit ACHS ZECHARIAH Administration Protocol Lidocaine 1 patch 12/07/20 19:33 Lidocaine 5% Patch TOPICAL DAILY PRN Pain Metoprolol Tartrate 25 mg 12/08/20 09:00 12/14/20 08:28 Metoprolol Tartrate 25 Mg Tab PO 25 mg DAILY ZECHARIAH Administration Naloxone HCl 0.2 mg 12/07/20 16:47 Naloxone 0.4 Mg/Ml 1 Ml Vial IV Q2M PRN Opioid Reversal Oxycodone/Acetaminophen 1 each 12/07/20 16:34 12/14/20 16:56 Oxycodone-Apap 10-325mg 1 Each Tab PO 1 each Q4H PRN Administration Pain Polyethylene Glycol 17 gm 12/07/20 19:33 Polyethylene Glycol 3350 17 Gm Powd.Pack PO DAILY PRN Constipation Quetiapine Fumarate 100 mg 12/14/20 09:00 12/14/20 08:28 Quetiapine 100 Mg Tab PO 100 mg BID ZECHARIAH Administration Senna/Docusate Sodium 1 each 12/07/20 19:33 Sennosides-Docusate Sodium 1 Each Tab PO BID PRN Constipation Objective - Vital Signs Vital signs: Vital Signs Temp 97.4 F L 12/14/20 12:00 Pulse 62 12/14/20 12:04 Resp 18 12/14/20 12:04 BP 125/99 12/14/20 12:04 Pulse Ox 93 L 12/14/20 12:00 Intake & Output 12/13/20 12/14/20 12/14/20 18:59 06:59 18:59 Intake Total 698.780 430.545 500.558 Output Total 3700 150 2000 Balance -3001.220 280.545 -1499.442 Intake: IV 50 0.9 50 Intake, IV Titration 148.780 190.545 85.558 Amount Dexmedetomidine/0.9% NaCl 148.780 190.545 85.558 (Pmx) 400 mcg In Empty Bag 1 bag @ Titrate IV . Q0M [facility] Rx#:[id number] Oral 550 240 365 Output: Urine 400 150 0 Hemodialysis 3300 2000 Other: # Voids 0 0 0 - Exam -GENERAL: The patient is alert and oriented x3, not in any acute distress. Obese HEENT: Pupils are round and equally reacting to light. EOMI. No scleral icterus. No conjunctival pallor. Normocephalic, atraumatic. No pharyngeal erythema. No thyromegaly. CARDIOVASCULAR: S1 and S2 present. No murmurs, rubs, or gallops. PULMONARY: Chest is clear to auscultation, no wheezing or crackles. ABDOMEN: Soft, nontender, nondistended, normoactive bowel sounds. No palpable organomegaly. -MUSCULOSKELETAL: No joint swelling or deformity. Midline lower back scar, healed with no drainage or open wound EXTREMITIES: No cyanosis, clubbing, or pedal edema. NEUROLOGICAL: Gross neurological examination did not reveal any focal deficits. -SKIN: no petechiae. He has extensive rash, maculopapular previous more confluent on the chest, back and extending into most of the abdomen as well as extremities. No mouth ulcer -Genitalia: Patient refused - Labs CBC & Chem 7: 12/14/20 03:55 12/14/20 03:55 Labs: Abnormal Lab Results - Last 24 Hours (Table) 12/13/20 12/13/20 12/14/20 Range/Units 12:38 21:19 03:55 RBC 3.55 L (4.30-5.90) m/uL Hgb 10.4 L (13.0-17.5) gm/dL Hct 31.4 L (39.0-53.0) % Neutrophils # 7.8 H (1.3-7.7) k/uL Lymphocytes # 0.6 L (1.0-4.8) k/uL ESR 28 H (0-15) mm/hr Sodium (137-145) mmol/L BUN (9-20) mg/dL Creatinine (0.66-1.25) mg/dL Glucose (74-99) mg/dL POC Glucose (mg/dL) 145 H 144 H (75-99) mg/dL C-Reactive Protein (<10.0) mg/L Total Protein (6.3-8.2) g/dL Albumin (3.5-5.0) g/dL 12/14/20 12/14/20 12/14/20 Range/Units 03:55 06:49 11:40 RBC (4.30-5.90) m/uL Hgb (13.0-17.5) gm/dL Hct (39.0-53.0) % Neutrophils # (1.3-7.7) k/uL Lymphocytes # (1.0-4.8) k/uL ESR (0-15) mm/hr Sodium 136 L (137-145) mmol/L BUN 53 H (9-20) mg/dL Creatinine 3.92 H (0.66-1.25) mg/dL Glucose 163 H (74-99) mg/dL POC Glucose (mg/dL) 152 H 114 H (75-99) mg/dL C-Reactive Protein 32.0 H (<10.0) mg/L Total Protein 5.5 L (6.3-8.2) g/dL Albumin 3.2 L (3.5-5.0) g/dL Microbiology - Last 24 Hours (Table) 12/07/20 16:02 Blood Culture - Final Blood No Growth after 144 hours Assessment and Plan Assessment: Nonoliguric Acute kidney injury due to ATN secondary to hypotension and toxicity to vancomycin.is getting hemodialysis Ongoing and recent lumbar abscess status post laminectomy secondary to staph epidermidis resistant to oxacillin Acute COPD exacerbation and possible obstructive sleep apnea, continue with CPAP/BiPAP and steroids Echo type of sick respiratory failure secondary to above Maculopapular rash, improving Lactic acidosis, resolved Mild Hypovolemic hyponatremia Recent L4- S1 fusion surgery and revision and incision and drainage with antibiotic spacer. Hypertension currently not hypertensive Morbid obesity with BMI 41.6 Possible history of obstructive sleep apnea as per patient, not on CPAP and BiPAP Plan: This is a pleasant 45 years old male who presents with vancomycin toxicity, lumbar abscess, JENNIFER needing hemodialysis. Continue with daptomycin as per ID team recommendation. Discontinue Solu-Medrol for agitation. DC IV fluids.Continue with hemodialysis as per nephrology team follow-up with screen writer in addition. Patient will be monitored in intensive care unit Continued with pain management and follow up closely. Labs and medication were reviewed.. Continue same treatment. Continue with symptomatic treatment. Resume home medication. Monitor lytes and vitals. DVT and GI prophylaxis. Further recommendations as per clinical course of the pat ient DVT prophylaxis: Subcutaneous heparin GI Prophylaxis: Pepcid PT/OT: Home health care versus inpatient rehab Prognosis is guarded
[2020-12-14 19:33] LABS: Glucose,Whole Blood 128 mg/dL (75-99)
[2020-12-15] MEDS: oxyCODONE-APAP 10-325MG 1 EACH TAB PO PRN ×5 (00:16→18:26)
[2020-12-15] MEDS: HALOPERIDOL LACTATE 5 MG/ML 1 ML VIAL IVP PRN (00:17)
[2020-12-15 04:19] LABS: Albumin 3.1 g/dL (3.5-5.0); Calcium 8.9 mg/dL (8.4-10.2); Potassium 3.6 mmol/L (3.5-5.1); Total Bilirubin 0.5 mg/dL (0.2-1.3); Total Protein 5.2 g/dL (6.3-8.2)
[2020-12-15 04:27] LABS: HCT 33.4 % (39.0-53.0); MCH 28.8 pg (25.0-35.0); MCHC 32.9 g/dL (31.0-37.0); MCV 87.8 fL (80.0-100.0); Mean Platelet Volume 7.8; Platelet Count 206 k/uL (150-450); RBC 3.81 m/uL (4.30-5.90); RDW 14.4 % (11.5-15.5); WBC 11.4 k/uL (3.8-10.6)
[2020-12-15 04:53] LABS: Band Neutrophils % 1 %; Eosinophils # (M) 1.94 k/uL (0-0.7); Lymphocytes # (M) 0.91 k/uL (1.0-4.8); Metamyelocytes # (M) 0.23 k/uL (0); Metamyelocytes % 2 %; Monocytes # (M) 0.46 k/uL (0-1.0); Neutrophils % (M) 69 %; Nucleated Red Blood Cells 0 /100 WBC (0-0); Total Cells Counted 200
[2020-12-15 04:56] LABS: Basophilic Stippling Present
[2020-12-15 04:57] LABS: Anisocytosis (M) Present
[2020-12-15] MEDS ORDERED: POTASSIUM CHLORIDE ER 20 MEQ TAB.ER PO SCH (06:30)
[2020-12-15] MEDS: INSULIN ASPART (NovoLOG) 100 UNIT/ML VIAL SQ SCH ×4 (06:42→21:36)
[2020-12-15] MEDS: BUDESONIDE 1 MG/2 ML NEBU INHALATION SCH ×2 (07:16→20:45)
[2020-12-15] MEDS: FORMOTEROL FUMARATE 20 MCG/2 ML NEBU INHALATION SCH ×2 (07:16→20:45)
[2020-12-15] MEDS: IPRATROPIUM-ALBUTEROL 3 ML NEB INHALATION SCH ×4 (07:16→20:45)
[2020-12-15] MEDS: QUEtiapine 100 MG TAB PO SCH ×2 (08:42→21:35)
[2020-12-15] MEDS: CITALOPRAM HYDROBROMIDE 20 MG TAB PO SCH (08:42)
[2020-12-15] MEDS: FUROSEMIDE 10 MG/ML 4 ML VIAL IV SCH (08:42)
[2020-12-15] MEDS: HEPARIN SODIUM,PORCINE 5,000 UNIT/ML 1 ML VIAL SQ SCH ×2 (08:42→21:35)
[2020-12-15] MEDS: METOPROLOL TARTRATE 25 MG TAB PO SCH (08:42)
--- NOTE | 2020-12-15 09:24 | P.PN ---
Subjective Patient is seen in follow-up for acute kidney injury, currently hemodialysis dependent. Started on hemodialysis 12/11/2020. Mentation is a little better today. He wants to go home. Urine output about 1 L in the last 24 hours. Hemodynamically stable. Vital signs are stable. General: The patient appeared well nourished and normally developed. HEENT: Head exam is unremarkable. Neck is without jugular venous distension. LUNGS: Breath sounds decreased. HEART: Rate and Rhythm are regular. ABDOMEN: Soft, nontender. EXTREMITITES: Trace edema. Objective - Vital Signs Vital signs: Vital Signs Temp 97.6 F 12/15/20 04:00 Pulse 99 12/15/20 09:00 Resp 28 H 12/15/20 09:00 BP 159/100 12/15/20 09:00 Pulse Ox 92 L 12/15/20 09:00 Intake & Output 12/14/20 12/15/20 12/15/20 18:59 06:59 18:59 Intake Total 860.558 840 120 Output Total 2800 300 400 Balance -1939.442 540 -280 Intake: IV 110 120 20 0.9 110 120 20 Intake, IV Titration 85.558 Amount Dexmedetomidine/0.9% NaCl 85.558 (Pmx) 400 mcg In Empty Bag 1 bag @ Titrate IV . Q0M [facility] Rx#:[id number] Oral 665 480 100 Tube Feeding 240 Output: Urine 800 300 400 Hemodialysis 2000 Other: # Voids 0 - Labs CBC & Chem 7: 12/15/20 03:49 12/15/20 03:49 Labs: Abnormal Lab Results - Last 24 Hours (Table) 12/14/20 12/14/20 12/14/20 Range/Units 11:40 17:51 19:31 WBC (3.8-10.6) k/uL RBC (4.30-5.90) m/uL Hgb (13.0-17.5) gm/dL Hct (39.0-53.0) % Neutrophils # (Manual) (1.3-7.7) k/uL Lymphocytes # (Manual) (1.0-4.8) k/uL Eosinophils # (Manual) (0-0.7) k/uL Metamyelocytes # (Man) (0) k/uL Sodium (137-145) mmol/L BUN (9-20) mg/dL Creatinine (0.66-1.25) mg/dL Glucose (74-99) mg/dL POC Glucose (mg/dL) 114 H 141 H 128 H (75-99) mg/dL Total Protein (6.3-8.2) g/dL Albumin (3.5-5.0) g/dL 12/15/20 12/15/20 Range/Units 03:49 03:49 WBC 11.4 H (3.8-10.6) k/uL RBC 3.81 L (4.30-5.90) m/uL Hgb 11.0 L (13.0-17.5) gm/dL Hct 33.4 L (39.0-53.0) % Neutrophils # (Manual) 7.90 H (1.3-7.7) k/uL Lymphocytes # (Manual) 0.91 L (1.0-4.8) k/uL Eosinophils # (Manual) 1.94 H (0-0.7) k/uL Metamyelocytes # (Man) 0.23 H (0) k/uL Sodium 136 L (137-145) mmol/L BUN 54 H (9-20) mg/dL Creatinine 3.58 H (0.66-1.25) mg/dL Glucose 107 H (74-99) mg/dL POC Glucose (mg/dL) (75-99) mg/dL Total Protein 5.2 L (6.3-8.2) g/dL Albumin 3.1 L (3.5-5.0) g/dL Assessment and Plan Plan: Assessment: 1. Acute kidney injury secondary to ATN secondary to vancomycin toxicity and further worsened with the use of nonsteroidals, Shayne inhibitors as well as hypotension. Started on hemodialysis December 11. Baseline creatinine near 1. Urine output about 1 L in the last 24 hours. 2. Altered mental status with component of uremia. 3. Volume overload. Improving with ultrafiltration. 4. 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 5. Hypokalemia from diuresis. Plan: Maintain IV Lasix. Continue to monitor for renal recovery. Continue to assess for need for dialysis on daily basis. Replace potassium.
[2020-12-15 11:49] LABS: Glucose,Whole Blood 90 mg/dL (75-99)
--- NOTE | 2020-12-15 12:44 | P.PN ---
Subjective Progress Note Date: 12/15/20 Principal diagnosis: Acute hypoxic respiratory failure, obstructive sleep apnea, fluid volume overload, acute kidney injury This is a 45-year-old male who presented to the emergency department on September 06 complaining of fever, and a rash. He is 15 days postop revision of L4-L5 with L4 through S1 fusion, and placement of antibiotic spacer. We actually know this patient because he came back from the operating room initially to the intensive care unit on the ventilator. He was quite rambunctious, and the patient was eventually extubated without a formal spontaneous breathing trial. The patient was apparently started on vancomycin 3 times a day for osteomyelitis. The patient presented to the emergency room on the with 2 days of fever and rash. The rash looks like a red man syndrome rash. It was extending in the back of his neck and extending down his whole back and sides of his chest. The surgery was done by Dr. Jama, and he recently saw him in the office. We were called in today because there was an "A" team called on the patient. The patient was apparently manifesting some respiratory distress. One of the charge nurses from the ICU, thought the patient was just a deep sleeper and probably suffering from some sleep apnea syndrome. The patient apparently does have a history of sleep apnea, but does not wear his CPAP/BiPAP device. She did not feel like the patient needed to be transferred down to the intensive care unit. Anyway, and we saw the patient, the patient was a bit sleepy, we recommended Solu-Medrol, Perforomist, and Pulmicort updrafts, and DuoNeb 4 times a day and when necessary. In addition, a blood gas was ordered but I didn't think it was necessary. Finally, we recommended BiPAP at 12/5 and 50%. We encouraged the patient to wear it until he started doing better. We'll be went to go see him, his saturations were in the low 90s, and at that time, he was on 6 L nasal cannula. He did arouse and respond appropriately. On 12/10/2020 patient seen in follow-up. He remains on BiPAP support, tolerating it well, resting comfortably in bed, BiPAP pressures of 12 and 5 and 50%, his lung sounds are diminished, he is a urine output has been diminished, his renal function continues to worsen, today's BUN is up to 73 and creatinine is 9.8 with potassium of 5.7, temporary emergent hemodialysis catheter was placed in the femoral area, and patient will have his hemodialysis treatment today, the rest of his blood work has been reviewed, showing white blood cell count of 15, hemoglobin is 11. His urinalysis showed possibility of a urinary tract infection, his blood and urine cultures have been negative, gastric chest x-ray showed bilateral patchy airspace disease, low lung volumes. Patient remains on daptomycin, and treatments, IV steroids. He is on IV Lasix 40 mg daily. Has not had significant diuresis On 12/11/2020 patient seen in follow-up, he is currently off BiPAP support, he is on 6 L of oxygen, he had hemodialysis treatment yesterday with removal of 1 L of fluid, and today he is having another session of hemodialysis with a goal of removing 2 L, he is still be drowsy, but more responsive to verbal stimulation, he has had no fever or chills, no recent chest x-ray. Remains on IV diuretics with Lasix 40 mg daily, IV steroids and breathing treatments. Continues on labs reviewed, slight improvement in renal profile, with B1 is 65 and creatinine of 8.1, potassium is 4.7. She continues on daptomycin, vancomycin has been discontinued, he is on IV steroids, and Benadryl for persistent rash possibly related to vancomycin. On 12/12/2020 patient is seen in follow-up on medical surgical floor, yesterday he had hemodialysis done with removal of 2.5 L of fluid, and today is having another hemodialysis session with the goal of removing 2.5 L, he is more awake today, he is currently on 6 L, he is agitated at times, and removes his oxygen. At times confused, at times not cooperative. Chest x-ray today shows diffuse interstitial pattern. Patient remains on daptomycin, but has significant rash, which looks very dry flaky on today's exam. He continues on IV Solu-Medrol every 6, Benadryl, he is given some pain medications. Still seems generally swollen, more gas was completed following hemodialysis recurrent showing pO2 of only 40%, pCO2 of 37, pH of 7.49 and this was done and FiO2 of 44% and subsequently his FiO2 was increased up to 100% nonrebreather mask. In view of his cardiorespiratory status, encephalopathy, confusion and agitation, moving his oxygen mask off we decided to move into the intensive care unit for closer monitoring. ProBNP was ordered and came back at 9570, pro-calcitonin was sent and is pending at this time, CRP is 85.3. His labs before hemodialysis showed creatinine is 7.35, and BUN of 50, and electrolytes are within normal limits. The patient is seen today 12/13/2020 in follow-up in the intensive care unit. He is transferred here yesterday with increasing restlessness increasing oxygen needs and altered mental status. He is currently on 15 L high flow nasal cannula. No current IV fluids. He did receive hemodialysis yesterday with 2.5 L removed. Plan is for repeat hemodialysis today. Chest x-ray continues to show patchy bilateral densities within the lungs. Stable compared to previous. Right-sided PICC line in place. Urine culture revealed no growth. Blood cultures revealed no growth. White count 7.5. Hemoglobin 9.6. Sodium 135. Potassium 3.9. Creatinine 4.88. He remains on DuoNeb inhalations, Pulmicort and Perforomist inhalations, IV Solu-Medrol. Antibiotics in the form of daptomycin. The patient is seen today 12/14/2020 in follow-up in the intensive care unit. He is currently resting comfortably in bed. He is quite restless and agitated throughout the night. Security assistance was required. He has received Haldol, Seroquel, on Precedex at 0.7 mcg/kg per hour. He is requiring 10 L high flow nasal cannula to maintain O2 saturations in the 90s. Chest x-ray reveals faint bilateral multifocal infiltrates. No significant change. Urine culture revealed no growth. Blood culture revealed no growth. White count 9.2. Hemoglobin 10.4. Sodium 136. Potassium 4.5. Creatinine 3.92. He remains on d aptomycin. IV diuretics. Bronchodilators and IV Solu-Medrol. The patient is seen today 12/15/2020 and follow-up in the intensive care unit. He is currently sitting up in a recliner at the bedside. More awake and alert. More calm and cooperative today. Maintaining O2 saturations in the 90s on 6 L/m per nasal cannula. No current IV fluids. He did receive hemodialysis yesterday with 2 L removed. His urine output has picked up as well. Blood and urine cultures reveal no growth. White count 11.4. Hemoglobin 11.0. Platelet count 206. Sodium 136. Potassium 3.6. Creatinine 3.58. Glucose 107. He remains on daptomycin, bronchodilators, IV diuretics. He is on Seroquel 100 mg twice a day. Off Precedex. Last Haldol required at midnight. Objective - Vital Signs Vital signs: Vital Signs Temp 98.4 F 12/15/20 12:00 Pulse 76 12/15/20 12:00 Resp 14 12/15/20 12:00 BP 109/94 12/15/20 12:00 Pulse Ox 92 L 12/15/20 12:00 Intake & Output 12/14/20 12/15/20 12/15/20 18:59 06:59 18:59 Intake Total 860.558 840 220 Output Total 2800 300 800 Balance -1939.442 540 -580 Intake: IV 110 120 20 0.9 110 120 20 Intake, IV Titration 85.558 Amount Dexmedetomidine/0.9% NaCl 85.558 (Pmx) 400 mcg In Empty Bag 1 bag @ Titrate IV . Q0M [facility] Rx#:[id number] Oral 665 480 200 Tube Feeding 240 Output: Urine 800 300 800 Hemodialysis 2000 Other: # Voids 0 - Exam GENERAL EXAM: Awake, alert, more cooperative, 45 -year-old male patient, currently on 6 L high flow nasal cannula HEAD: Normocephalic/atraumatic. EYES: Normal reaction of pupils, equal size. Conjunctiva pink, sclera white. NOSE: Clear with pink turbinates. THROAT: No erythema or exudates. NECK: No masses, no JVD, no thyroid enlargement, no adenopathy. CHEST: No chest wall deformity. Symmetrical expansion. LUNGS: Equal air entry with crackles in the bilateral posterior bases CVS: Regular rate and rhythm, normal S1 and S2, no gallops, no murmurs, no rubs ABDOMEN: Soft, nontender. No hepatosplenomegaly, normal bowel sounds, no guarding or rigidity. EXTREMITIES: No clubbing, no edema, no cyanosis, 2+ pulses and upper and lower extremities. MUSCULOSKELETAL: Muscle strength and tone normal. SPINE: Dressing to previous lumbar surgery dry and intact. No scoliosis or deformity SKIN: Patient has improving red confluent rash all over patient's face, shoulders, neck, abdomen, back and upper thighs CENTRAL NERVOUS SYSTEM: More calm and cooperative. No focal deficits, tone is normal in all 4 extremities. - Labs CBC & Chem 7: 12/15/20 03:49 12/15/20 03:49 Labs: Abnormal Lab Results - Last 24 Hours (Table) 12/14/20 12/14/20 12/15/20 Range/Units 17:51 19:31 03:49 WBC 11.4 H (3.8-10.6) k/uL RBC 3.81 L (4.30-5.90) m/uL Hgb 11.0 L (13.0-17.5) gm/dL Hct 33.4 L (39.0-53.0) % Neutrophils # (Manual) 7.90 H (1.3-7.7) k/uL Lymphocytes # (Manual) 0.91 L (1.0-4.8) k/uL Eosinophils # (Manual) 1.94 H (0-0.7) k/uL Metamyelocytes # (Man) 0.23 H (0) k/uL Sodium (137-145) mmol/L BUN (9-20) mg/dL Creatinine (0.66-1.25) mg/dL Glucose (74-99) mg/dL POC Glucose (mg/dL) 141 H 128 H (75-99) mg/dL Total Protein (6.3-8.2) g/dL Albumin (3.5-5.0) g/dL 12/15/20 Range/Units 03:49 WBC (3.8-10.6) k/uL RBC (4.30-5.90) m/uL Hgb (13.0-17.5) gm/dL Hct (39.0-53.0) % Neutrophils # (Manual) (1.3-7.7) k/uL Lymphocytes # (Manual) (1.0-4.8) k/uL Eosinophils # (Manual) (0-0.7) k/uL Metamyelocytes # (Man) (0) k/uL Sodium 136 L (137-145) mmol/L BUN 54 H (9-20) mg/dL Creatinine 3.58 H (0.66-1.25) mg/dL Glucose 107 H (74-99) mg/dL POC Glucose (mg/dL) (75-99) mg/dL Total Protein 5.2 L (6.3-8.2) g/dL Albumin 3.1 L (3.5-5.0) g/dL Assessment and Plan Assessment: 1 Acute on chronic hypoxemic respiratory failure, likely secondary to bronchospasm, fluid overload as well as sleep apnea syndrome, noncompliant with CPAP/BiPAP. 2 Acute kidney injury, fluid overload, hyperkalemia, requiring hemodialysis. Current creatinine 3.58. 2 L removed 12/14/2020 3 Possible underlying sepsis secondary to osteomyelitis. 4 Recent admission for L4 through S1 fusion. Also, developed epidural phlegmon requiring evacuation there was placement of antibiotics spacer. 5 Diffuse truncal rash, possibly consistent with "red man" syndrome secondary to vancomycin infusion. Currently on daptomycin 6 History of hypertension. 7 History of chronic back pain. 8 Suspect pickwickian syndrome. 9 Obesity. 10 Altered mentation, confusion and agitation, likely related to toxic metabolic encephalopathy. Improving Plan: The patient was seen and evaluated by Dr. Conroy Oxygenation improved down to 6 L high flow nasal cannula More calm and cooperative, continue Seroquel Continue Haldol as needed Continue bronchodilators and daptomycin Decrease FiO2 as tolerated Chest x-ray in a.m. We will continue to follow I, the cosigning physician, performed a history & physical examination of the patient. Lungs sounds with crackles in the bilateral posterior bases. Maintaining good O2 saturations in the 90s on 6 L high flow nasal cannula. I discussed the assessment and plan of care with my nurse practitioner, Kathleen herring. I attest to the above note as dictated by her.
[2020-12-15 17:05] LABS: Glucose,Whole Blood 88 mg/dL (75-99)
[2020-12-15 17:54] LABS: Glucose,Whole Blood 104 mg/dL (75-99)
--- NOTE | 2020-12-15 18:17 | P.PN ---
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 Patient states that when she had GI bleed she had similar symptoms and presents to ER for evaluation. Patient states that she was having some dark-colored stools during the last 2 days which she attributes to her food intake. Patient also complaining of shortness of breath with exertion. No chest pain. On and off leg swelling currently denied any leg swelling. No fever no chills. No cough or sputum production. No recent illnesses or infections. No recent travel. Chest x-ray showed no evidence of acute pulmonary disease EKG showed normal sinus rhythm with left atrial enlargement. Patient is has history of heart murmur for which patient was seen by cardiology in the past. Laboratory showed hemoglobin level was 6.5 on admission and FOBT positive. BUN 14 creatinine 0.81 potassium 4.5 sodium 136 and blood sugar is 214 and magnesium 1.1 and calcium 10.4 coronavirus PCR is not detected. 12/07/2020 Patient is currently sitting in a chair. Awake alert oriented x3. Patient was started on capsule endoscopy study. Denied any complaints abdominal pain. Hemoglobin is at 7.0 today. No headache or dizziness or lightheadedness. GI is following. Continue insulin sliding scale and blood sugar control. 12/08/2020 Patient is currently resting in the bed comfortably. Denied any complaints of nausea vomiting or abdominal pain or diarrhea. Patient did have brown bowel movement today. Hemoglobin level is 7.1 today. Report pending for capsule endoscopy. GI is on board. Patient was started on oral diet and adjust insulin dose. subjective 12/09/20 this is a pleasant 45 years old male who presents because of fever and generalized macular papular rash , thought to be secondary to vancomycin toxicity , patient was on vancomycin for lumbar abscess , he is a status post laminectomy secondary to staph epidermidis resistant to oxacillin. Also with acute kidney injury and creatinine is 7.8 today with nephrology on the case and possible hemodialysis patient today he has some sleep breathing difficulty , he states that he has s leep apnea but not using BiPAP/CPAP at home. he denies previous diagnosis of COPD however his cutting back his smoking from 1.5 down to 0.5 pack per day , however patient is already on Solu-Medrol 60 mg 4 times a day for his rash He is a little short of breath today. No chest pain or coughing. No abdominal pain. He thinks his rash is the same but it itching improved , although is not resolved completely. Also he is on daptomycin and gentle hydration with normal saline at 50 mL per hour ID team and geography instructor teams the case 12/10/2020 Patient still with some respiratory distress, he is on BiPAP overnight. This will help decrease air intraorally with scattered wheezing. His still on Solu- Medrol His extremity and trunk rash is better. He is for Right inguinal catheter was placed for hemodialysis. Patient most likely is going for hemodialysis per nephrology team. She denies any other new complaints, no chest pain, he denies abdominal pain, no nausea vomiting or diarrhea. No fever Orthopedic team input is appreciated and they recommended CT of the lumbar spine 12/11/2020 Patient is still short of breath especially with exertion, still have expiratory wheezing with prolonged expiration and continue on Solu-Medrol 60 mg and daptomycin for that His rash is significantly improving and fading away with some scale and he is hemodynamically stable however he needs 6 L of oxygen to keep saturation at 94% WBC is back to normal today at 8.9. remains on daptomycin for lumbar abscess, CAT scan of the lumbar spine ordered by orthopedic team is pending. ESR IV fluid was stopped and now he is currently receiving Lasix 40 mg daily. patient received hemodialysis yesterday and today. 12/12/2020 Today patient was more confused and he still the Neck and dyspneic with extensive expiratory wheezing. His saturation was low 90s, however his oxygen requirement increased to 15 L via nonrebreather. With ABG showing pH of 7.49 slightly elevated and low pO2 and 48 and pCO2 of 28. Chest x-ray: Showing diffuse bilateral infiltrates suspicious for diffuse pneumonia which is is unl ikely and most likely patient has fluid overload. Labs showing normal WBC at 8.1K, hemoglobin 12.3. BMP is stable with normal electrolytes. Creatinine is expected to be high 7.3. Sugar control 118-186. Liver enzymes not elevated. Patient remains on daptomycin, Solu-Medrol 60 mg and Lasix 40 mg IV daily. Most likely patient will go to the intensive care unit for pulmonary team recommendations 12/13/2020 Patient both to the ICU yesterday. Patient is awake, he looks a little upset, he keeps his oxygen off and asked him to put it back but he refuses after I explained the risk for him. Sitter At bedside He denies any pain. He still feels short of breath with expiratory wheezing. Yesterday he was on 15 L oxygen via nasal cannula which was the same but during the evening his requirement went down to 10 L via nasal cannula. Labs and glucose looks stable. Continue with Lasix 80 mg IV per geography instructor. Also he is on Solu-Medrol 40 mg IV twice daily and daptomycin. patient to continue with hemodialysis today and tomorrow per geography instructor 12/14/2020 Patient ICU still with agitation at time eventually he was sleeping this morning but it was very hard for staff to come down throughout all night. Patient still with dyspnea and expiratory wheezing. And still undergoing hemodialysis today. Because of these his steroids also the Medrol 40 mg once stopped today and his Seroquel was increased to 100 mg twice a day Other than that he is hemodynamically stable.He is saturating 92% on 2 L oxygen via nasal cannula Chest x-ray showing persistent bilateral consolidation or infiltrate, suspicious for pulmonary congestion He remains on daptomycin Next hemodialysis is on Wednesday, while tomorrow Wednesday he will go without treatment 12/15/2020 Patient is seen today in the ICU less agitated and confused however he was standing naked in the ICU asked to go home today. I explained to the patient is not medical ready to go home. Especially he is still on 60 L of oxygen via nasal cannula and a still getting hemodialysis. However it was noticed today is less dyspneic and is expiratory wheezing is significantly improved He is hemodynamically stable. No hemodialysis today and will be resumed tomorrow per nephrology team recommendation Slight leukocytosis 11.4 K probably from steroid effect. I did glucose is controlled. Continue with daptomycin Review of systems CONSTITUTIONAL: No fever, no malaise, no fatigue. HEENT: No recent visual problems or hearing problems. Denied any sore throat. CARDIOVASCULAR: No orthopnea, PND, no palpitations, no syncope. -PULMONARY: Positive for shortness of breath, no cough, no hemoptysis. GASTROINTESTINAL: No diarrhea, no nausea, no vomiting, no abdominal pain. Normoactive bowel sounds. NEUROLOGICAL: No headaches, no weakness, no numbness. Active Medications Generic Name Dose Route Start Last Admin Trade Name Freq PRN Reason Stop Dose Admin Acetaminophen 650 mg 12/07/20 16:47 12/08/20 22:18 Acetaminophen Tab 325 Mg Tab PO 650 mg Q6HR PRN Administration Mild Pain or Fever > 100.5 Albuterol/Ipratropium 3 ml 12/09/20 16:00 12/14/20 15:14 Ipratropium-Albuterol 3 Ml Neb INHALATION Not Given RT-QID ZECHARIAH Albuterol/Ipratropium 3 ml 12/09/20 13:03 Ipratropium-Albuterol 3 Ml Neb INHALATION RT-Q2H PRN Shortness Of Breath Or Wheezing Bisacodyl 5 mg 12/07/20 19:33 Bisacodyl 5 Mg Tablet.Dr PO DAILY PRN Constipation Budesonide 1 mg 12/09/20 20:00 12/14/20 08:16 Budesonide 1 Mg/2 Ml Nebu INHALATION 1 mg RT-BID ZECHARIAH Administration Citalopram Hydrobromide 20 mg 12/08/20 09:00 12/14/20 08:27 Citalopram Hydrobromide 20 Mg Tab PO 20 mg DAILY ZECHARIAH Administration Formoterol Fumarate 20 mcg 12/09/20 20:00 12/14/20 08:16 Formoterol Fumarate 20 Mcg/2 Ml Nebu INHALATION 20 mcg RT-BID ZECHARIAH Administration Furosemide 80 mg 12/13/20 09:00 12/14/20 08:26 Furosemide 10 Mg/Ml 4 Ml Vial IV 80 mg DAILY ZECHARIAH Administration Haloperidol Lactate 2 mg 12/12/20 13:54 12/14/20 13:21 Haloperidol Lactate 5 Mg/Ml 1 Ml Vial IVP 2 mg Q4HR PRN Administration Agitation or Acute Psychosis Heparin Sodium (Porcine) 5,000 unit 12/09/20 10:45 12/14/20 08:27 Heparin Sodium,Porcine 5,000 Unit/Ml 1 Ml Vial SQ 5,000 unit Q12HR ZECHARIAH Administration Daptomycin 800 mg/ Sodium 50 mls @ 100 mls/hr 12/09/20 20:00 12/13/20 21:27 Chloride IVPB 100 mls/hr Q48H ZECHARIAH Administration Protocol Insulin Aspart 0 unit 12/10/20 12:30 12/14/20 17:58 Insulin Aspart (Novolog) 100 Unit/Ml Vial SQ 1 unit ACHS ZECHARIAH Administration Protocol Lidocaine 1 patch 12/07/20 19:33 Lidocaine 5% Patch TOPICAL DAILY PRN Pain Metoprolol Tartrate 25 mg 12/08/20 09:00 12/14/20 08:28 Metoprolol Tartrate 25 Mg Tab PO 25 mg DAILY ZECHARIAH Administration Naloxone HCl 0.2 mg 12/07/20 16:47 Naloxone 0.4 Mg/Ml 1 Ml Vial IV Q2M PRN Opioid Reversal Oxycodone/Acetaminophen 1 each 12/07/20 16:34 12/14/20 16:56 Oxycodone-Apap 10-325mg 1 Each Tab PO 1 each Q4H PRN Administration Pain Polyethylene Glycol 17 gm 12/07/20 19:33 Polyethylene Glycol 3350 17 Gm Powd.Pack PO DAILY PRN Constipation Quetiapine Fumarate 100 mg 12/14/20 09:00 12/14/20 08:28 Quetiapine 100 Mg Tab PO 100 mg BID ZECHARIAH Administration Senna/Docusate Sodium 1 each 12/07/20 19:33 Sennosides-Docusate Sodium 1 Each Tab PO BID PRN Constipation Objective - Vital Signs Vital signs: Vital Signs Temp 98.4 F 12/15/20 12:00 Pulse 76 12/15/20 12:00 Resp 14 12/15/20 12:00 BP 109/94 12/15/20 12:00 Pulse Ox 92 L 12/15/20 12:00 Intake & Output 12/14/20 12/15/20 12/15/20 18:59 06:59 18:59 Intake Total 860.558 840 220 Output Total 2800 300 800 Balance -1939.442 540 -580 Intake: IV 110 120 20 0.9 110 120 20 Intake, IV Titration 85.558 Amount Dexmedetomidine/0.9% NaCl 85.558 (Pmx) 400 mcg In Empty Bag 1 bag @ Titrate IV . Q0M ZECHARIAH Rx#:[id number] Oral 665 480 200 Tube Feeding 240 Output: Urine 800 300 800 Hemodialysis 2000 Other: # Voids 0 - Exam -GENERAL: The patient is alert and oriented x3, not in any acute distress. Obese HEENT: Pupils are round and equally reacting to light. EOMI. No scleral icterus. No conjunctival pallor. Normocephalic, atraumatic. No pharyngeal erythema. No thyromegaly. CARDIOVASCULAR: S1 and S2 present. No murmurs, rubs, or gallops. PULMONARY: Chest is clear to auscultation, no wheezing or crackles. ABDOMEN: Soft, nontender, nondistended, normoactive bowel sounds. No palpable organomegaly. -MUSCULOSKELETAL: No joint swelling or deformity. Midline lower back scar, healed with no drainage or open wound EXTREMITIES: No cyanosis, clubbing, or pedal edema. NEUROLOGICAL: Gross neurological examination did not reveal any focal deficits. -SKIN: no petechiae. He has extensive rash, maculopapular previous more confluent on the chest, back and extending into most of the abdomen as well as extremities. No mouth ulcer -Genitalia: Patient refused - Labs CBC & Chem 7: 12/15/20 03:49 12/15/20 03:49 Labs: Abnormal Lab Results - Last 24 Hours (Table) 12/14/20 12/14/20 12/15/20 Range/Units 17:51 19:31 03:49 WBC 11.4 H (3.8-10.6) k/uL RBC 3.81 L (4.30-5.90) m/uL Hgb 11.0 L (13.0-17.5) gm/dL Hct 33.4 L (39.0-53.0) % Neutrophils # (Manual) 7.90 H (1.3-7.7) k/uL Lymphocytes # (Manual) 0.91 L (1.0-4.8) k/uL Eosinophils # (Manual) 1.94 H (0-0.7) k/uL Metamyelocytes # (Man) 0.23 H (0) k/uL Sodium (137-145) mmol/L BUN (9-20) mg/dL Creatinine (0.66-1.25) mg/dL Glucose (74-99) mg/dL POC Glucose (mg/dL) 141 H 128 H (75-99) mg/dL Total Protein (6.3-8.2) g/dL Albumin (3.5-5.0) g/dL 12/15/20 Range/Units 03:49 WBC (3.8-10.6) k/uL RBC (4.30-5.90) m/uL Hgb (13.0-17.5) gm/dL Hct (39.0-53.0) % Neutrophils # (Manual) (1.3-7.7) k/uL Lymphocytes # (Manual) (1.0-4.8) k/uL Eosinophils # (Manual) (0-0.7) k/uL Metamyelocytes # (Man) (0) k/uL Sodium 136 L (137-145) mmol/L BUN 54 H (9-20) mg/dL Creatinine 3.58 H (0.66-1.25) mg/dL Glucose 107 H (74-99) mg/dL POC Glucose (mg/dL) (75-99) mg/dL Total Protein 5.2 L (6.3-8.2) g/dL Albumin 3.1 L (3.5-5.0) g/dL Assessment and Plan Assessment: Nonoliguric Acute kidney injury due to ATN secondary to hypotension and toxicity to vancomycin.is getting hemodialysis Ongoing and recent lumbar abscess status post laminectomy secondary to staph epidermidis resistant to oxacillin Acute COPD exacerbation and possible obstructive sleep apnea, continue with CPAP/BiPAP and steroids Echo type of sick respiratory failure secondary to above Maculopapular rash, improving Lactic acidosis, resolved Mild Hypovolemic hyponatremia Recent L4- S1 fusion surgery and revision and incision and drainage with antibiotic spacer. Hypertension currently not hypertensive Morbid obesity with BMI 41.6 Possible history of obstructive sleep apnea as per patient, not on CPAP and BiPAP Plan: This is a pleasant 45 years old male who presents with vancomycin toxicity, lumbar abscess, JENNIFER needing hemodialysis. Continue with daptomycin as per ID team recommendation. Discontinue Solu-Medrol for agitation. DC IV fluids.C ontinue with hemodialysis as per nephrology team follow-up with photographer portrait in addition. Patient will be monitored in intensive care unit Continued with pain management and follow up closely. Labs and medication were reviewed.. Continue same treatment. Continue with symptomatic treatment. Resume home medication. Monitor lytes and vitals. DVT and GI prophylaxis. Further recommendations as per clinical course of the patient DVT prophylaxis: Subcutaneous heparin GI Prophylaxis: Pepcid PT/OT: Home health care versus inpatient rehab Prognosis is guarded
[2020-12-15 20:51] LABS: Glucose,Whole Blood 89 mg/dL (75-99)
[2020-12-16] MEDS: oxyCODONE-APAP 10-325MG 1 EACH TAB PO PRN ×4 (01:16→21:23)
[2020-12-16 04:40] LABS: Calcium 9.1 mg/dL (8.4-10.2); Total Bilirubin 0.6 mg/dL (0.2-1.3); Total Protein 5.3 g/dL (6.3-8.2)
[2020-12-16 04:41] LABS: Basophils # (A) 0.1 k/uL (0-0.2); Basophils % (A) 0 %; Eosinophils # (A) 2.2 k/uL (0-0.7); Eosinophils % (A) 15 %; HCT 36.5 % (39.0-53.0); HGB 11.9 gm/dL (13.0-17.5); Lymphocytes # (A) 1.3 k/uL (1.0-4.8); Lymphocytes % (A) 9 %; MCHC 32.6 g/dL (31.0-37.0); Mean Platelet Volume 7.7; Monocytes # (A) 0.4 k/uL (0-1.0); Monocytes % (A) 3 %; Neutrophils % (A) 73 %; Platelet Count 225 k/uL (150-450); RDW 14.5 % (11.5-15.5)
--- NOTE | 2020-12-16 06:05 | PN ---
PROGRESS NOTE DATE OF SERVICE: 12/15/2020 REASON FOR FOLLOWUP: 1. Lumbar paraspinal abscess. 2. Drug rash. INTERVAL HISTORY: Patient is currently afebrile. The patient is more awake, alert, appropriate. Denies any chest pain or shortness of breath. Occasional cough. No abdominal pain. No worsening back pain. PHYSICAL EXAMINATION: Blood pressure 129/80 with a pulse of 80, temperature is 97.7, he is 94% on 4 L nasal cannula. General description is a middle-aged male lying in bed in no distress. Respiratory system: Unlabored breathing, decreased intensity of breath sounds. No wheeze. HEART: S1, S2. Regular rate and rhythm. ABDOMEN: Soft, no tenderness. Skin rash has decreased in intensity. LABS: Hemoglobin is 11.2, white count 11.4, BUN of 54, creatinine 3.54. Blood and urine culture has been negative. DIAGNOSTIC IMPRESSION AND PLAN: Patient with lumbar paraspinal abscess. Culture positive for Staph epidermidis. Patient treated with vancomycin. Now admitted to the hospital with drug rash and renal failure. Has been started on dialysis and kidney function has improved. Rash has improved. Patient to continue with daptomycin. Family at the bedside. Questions and concerns were answered. MMODL / IJN: [id number] /
[2020-12-16] MEDS: INSULIN ASPART (NovoLOG) 100 UNIT/ML VIAL SQ SCH ×4 (07:00→20:45)
[2020-12-16 07:37] LABS: Glucose,Whole Blood 104 mg/dL (75-99)
--- NOTE | 2020-12-16 07:51 | P.PN ---
Subjective Progress Note Date: 12/16/20 Acute hypoxic respiratory failure, obstructive sleep apnea, fluid volume overload, acute kidney injury This is a 45-year-old male who presented to the emergency department on September 06 complaining of fever, and a rash. He is postop revision of L4-L5 with L4 through S1 fusion, and placement of antibiotic spacer. We actually know this patient because he came back from the operating room initially to the intensive care unit on the ventilator. He was quite rambunctious, and the patient was eventually extubated without a formal spontaneous breathing trial. The patient was apparently started on vancomycin 3 times a day for osteomyelitis. The patient presented to the emergency room on the with 2 days of fever and rash. The rash looks like a red man syndrome rash. It was extending in the back of his neck and extending down his whole back and sides of his chest. The surgery was done by Dr. Jama, and he recently saw him in the office. We were called in today because there was an "A" team called on the patient. The patient was apparently manifesting some respiratory distress. One of the charge nurses from the ICU, thought the patient was just a deep sleeper and probably lemus ffering from some sleep apnea syndrome. The patient apparently does have a history of sleep apnea, but does not wear his CPAP/BiPAP device. She did not feel like the patient needed to be transferred down to the intensive care unit. Anyway, and we saw the patient, the patient was a bit sleepy, we recommended Solu-Medrol, Perforomist, and Pulmicort updrafts, and DuoNeb 4 times a day and when necessary. In addition, a blood gas was ordered but I didn't think it was necessary. Finally, we recommended BiPAP at 12/5 and 50%. We encouraged the patient to wear it until he started doing better. We'll be went to go see him, his saturations were in the low 90s, and at that time, he was on 6 L nasal cannula. He did arouse and respond appropriately. On 12/10/2020 patient seen in follow-up. He remains on BiPAP support, tolerating it well, resting comfortably in bed, BiPAP pressures of 12 and 5 and 50%, his lung sounds are diminished, he is a urine output has been diminished, his renal function continues to worsen, today's BUN is up to 73 and creatinine is 9.8 with potassium of 5.7, temporary emergent hemodialysis catheter was placed in the femoral area, and patient will have his hemodialysis treatment today, the rest of his blood work has been reviewed, showing white blood cell count of 15, hemoglobin is 11. His urinalysis showed possibility of a urinary tract infection, his blood and urine cultures have been negative, gastric chest x-ray showed bilateral patchy airspace disease, low lung volumes. Patient remains on daptomycin, and treatments, IV steroids. He is on IV Lasix 40 mg daily. Has not had significant diuresis On 12/11/2020 patient seen in follow-up, he is currently off BiPAP support, he is on 6 L of oxygen, he had hemodialysis treatment yesterday with removal of 1 L of fluid, and today he is having another session of hemodialysis with a goal of removing 2 L, he is still be drowsy, but more responsive to verbal stimulation, he has had no fever or chills, no recent chest x-ray. Remains on IV diuretics with Lasix 40 mg daily, IV steroids and breathing treatments. Continues on labs reviewed, slight improvement in renal profile, with B1 is 65 and creatinine of 8.1, potassium is 4.7. She continues on daptomycin, vancomycin has been discontinued, he is on IV steroids, and Benadryl for persistent rash possibly related to vancomycin. On 12/12/2020 patient is seen in follow-up on medical surgical floor, yesterday he had hemodialysis done with removal of 2.5 L of fluid, and today is having another hemodialysis session with the goal of removing 2.5 L, he is more awake today, he is currently on 6 L, he is agitated at times, and removes his oxygen. At times confused, at times not cooperative. Chest x-ray today shows diffuse interstitial pattern. Patient remains on daptomycin, but has significant rash, which looks very dry flaky on today's exam. He continues on IV Solu-Medrol every 6, Benadryl, he is given some pain medications. Still seems generally swollen, more gas was completed following hemodialysis recurrent showing pO2 of only 40%, pCO2 of 37, pH of 7.49 and this was done and FiO2 of 44% and subsequently his FiO2 was increased up to 100% nonrebreather mask. In view of his cardiorespiratory status, encephalopathy, confusion and agitation, moving his oxygen mask off we decided to move into the intensive care unit for closer monitoring. ProBNP was ordered and came back at 9570, pro-calcitonin was sent and is pending at this time, CRP is 85.3. His labs before hemodialysis showed creatinine is 7.35, and BUN of 50, and electrolytes are within normal limits. The patient is seen today 12/13/2020 in follow-up in the intensive care unit. He is transferred here yesterday with increasing restlessness increasing oxygen needs and altered mental status. He is currently on 15 L high flow nasal cannula. No current IV fluids. He did receive hemodialysis yesterday with 2.5 L removed. Plan is for repeat hemodialysis today. Chest x-ray continues to show patchy bilateral densities within the lungs. Stable compared to previous. Right-sided PICC line in place. Urine culture revealed no growth. Blood cultures revealed no growth. White count 7.5. Hemoglobin 9.6. Sodium 135. Potassium 3.9. Creatinine 4.88. He remains on DuoNeb inhalations, Pulmicort and Perforomist inhalations, IV Solu-Medrol. Antibiotics in the form of daptomycin. The patient is seen today 12/14/2020 in follow-up in the intensive care unit. He is currently resting comfortably in bed. He is quite restless and agitated throughout the night. Security assistance was required. He has received Haldol, Seroquel, on Precedex at 0.7 mcg/kg per hour. He is requiring 10 L high flow nasal cannula to maintain O2 saturations in the 90s. Chest x-ray reveals faint bilateral multifocal infiltrates. No significant change. Urine culture revealed no growth. Blood culture revealed no growth. White count 9.2. Hemoglobin 10.4. Sodium 136. Potassium 4.5. Creatinine 3.92. He remains on daptomycin. IV diuretics. Bronchodilators and IV Solu-Medrol. The patient is seen today 12/15/2020 and follow-up in the intensive care unit. He is currently sitting up in a recliner at the bedside. More awake and alert. More calm and cooperative today. Maintaining O2 saturations in the 90s on 6 L/m per nasal cannula. No current IV fluids. He did receive hemodialysis yesterday with 2 L removed. His urine output has picked up as well. Blood and urine cultures reveal no growth. White count 11.4. Hemoglobin 11.0. Platelet count 206. Sodium 136. Potassium 3.6. Creatinine 3.58. Glucose 107. He remains on daptomycin, bronchodilators, IV diuretics. He is on Seroquel 100 mg twice a day. Off Precedex. Last Haldol required at midnight. On 12/16/2020 the patient is being seen in follow-up in the intensive care unit. The patient has recovered from his rash. Note that the patient toxicity to vancomycin. The patient developed an acute kidney injury related to vancomycin toxicity and the patient developed also Curry syndrome. The renal function is still in.. Creatinine from today 4.26 with a BMI of 67. The patient produced 1 L of urine output overnight. As such, the patient is non-oliguric at this point in time. His last session of hemodialysis was on 12/14/2020 with a total of 2 L of fluid was removed. No dialysis was done yesterday. The blood cultures are negative. The patient has a white cell count of 15 with a hemoglobin of 11.9. The patient has a single lumen PICC in the right upper extremity and the patient has a right femoral hemodialysis catheter in place. His cardiac rhythm is sinus. He does have some sinus bradycardia with sleeping knowing that the patient has obvious clinical features of obstructive sleep apnea. He is currently on 4 L of oxygen by nasal cannula with a pulse of 75%. He is t olerating his diet. He had a loose bowel movement on 12/15/2020. The patient has ongoing osteomyelitis on antibiotics. Spine surgeries also on the case. He is currently off the BiPAP. The chest x-ray still showing a component of mild pulmonary vascular congestion. Remains on DuoNeb nebulized treatments around the clock. Remains on Pulmicort and Perforomist nebulized treatments. The patient shows no significant agitation. The patient is on Seroquel 100 mg by mouth twice a day and Haldol on an as-needed basis. Precedex has been discontinued. Objective - Vital Signs Vital signs: Vital Signs Temp 97.5 F L 12/16/20 04:00 Pulse 85 12/16/20 07:00 Resp 17 12/16/20 07:00 BP 158/111 12/16/20 07:00 Pulse Ox 98 12/16/20 07:00 Intake & Output 12/15/20 12/16/20 12/16/20 18:59 06:59 18:59 Intake Total 420 480 Output Total 1100 1400 0 Balance -680 -920 0 Intake: IV 20 0.9 20 Oral 400 480 Output: Urine 1100 1400 0 - Exam GENERAL EXAM: Awake, alert, more cooperative, 45 -year-old male patient, currently on 4 L high flow nasal cannula HEAD: Normocephalic/atraumatic. EYES: Normal reaction of pupils, equal size. Conjunctiva pink, sclera white. NOSE: Clear with pink turbinates. THROAT: No erythema or exudates. NECK: No masses, no JVD, no thyroid enlargement, no adenopathy. CHEST: No chest wall deformity. Symmetrical expansion. LUNGS: Equal air entry with crackles in the bilateral posterior bases CVS: Regular rate and rhythm, normal S1 and S2, no gallops, no murmurs, no rubs ABDOMEN: Soft, nontender. No hepatosplenomegaly, normal bowel sounds, no guarding or rigidity. EXTREMITIES: No clubbing, no edema, no cyanosis, 2+ pulses and upper and lower extremities. MUSCULOSKELETAL: Muscle strength and tone normal. SPINE: Dressing to previous lumbar surgery dry and intact. No scoliosis or deformity SKIN: Patient has improving red confluent rash all over patient's face, shoulders, neck, abdomen, back and upper thighs CENTRAL NERVOUS SYSTEM: More calm and cooperative. No focal deficits, tone is normal in all 4 extremities. - Labs CBC & Chem 7: 12/16/20 03:48 12/16/20 03:48 Labs: Abnormal Lab Results - Last 24 Hours (Table) 12/15/20 12/16/20 12/16/20 Range/Units 17:53 03:48 03:48 WBC 15.0 H (3.8-10.6) k/uL RBC 4.10 L (4.30-5.90) m/uL Hgb 11.9 L (13.0-17.5) gm/dL Hct 36.5 L (39.0-53.0) % Neutrophils # 11.0 H (1.3-7.7) k/uL Eosinophils # 2.2 H (0-0.7) k/uL BUN 67 H (9-20) mg/dL Creatinine 4.26 H (0.66-1.25) mg/dL Glucose 109 H (74-99) mg/dL POC Glucose (mg/dL) 104 H (75-99) mg/dL Total Protein 5.3 L (6.3-8.2) g/dL Albumin 3.0 L (3.5-5.0) g/dL 12/16/20 Range/Units 07:35 WBC (3.8-10.6) k/uL RBC (4.30-5.90) m/uL Hgb (13.0-17.5) gm/dL Hct (39.0-53.0) % Neutrophils # (1.3-7.7) k/uL Eosinophils # (0-0.7) k/uL BUN (9-20) mg/dL Creatinine (0.66-1.25) mg/dL Glucose (74-99) mg/dL POC Glucose (mg/dL) 104 H (75-99) mg/dL Total Protein (6.3-8.2) g/dL Albumin (3.5-5.0) g/dL Assessment and Plan Plan: 1 Acute on chronic hypoxemic respiratory failure, likely secondary to bronchospasm, fluid overload as well as sleep apnea syndrome, noncompliant with CPAP/BiPAP. The patient is on 4 L of oxygen by nasal cannula. Did not use his BiPAP overnight. 2 Acute kidney injury, secondary to vancomycin toxicity as the patient's vancomycin level was 67 admission in addition to the use of nonsteroidal anti- inflammatory medication CAROL inhibitor's and hypotension. The patient is currently on hemodialysis. Less without the surgeon was on 12/14/2020 where a total of 2 L of fluid was removed. We'll discuss with nephrology. Possible another session of hemodialysis today. The creatinine today is at 4.26 compared to 3.58 yesterday and the patient will obviously need more dialysis. His chest x-ray slowing mild pulmonary vascular congestion compatible to the earlier chest x-rays. 3 Possible underlying sepsis secondary to osteomyelitis. 4 L4 through S1 fusion. Epidural phlegmon requiring evacuation there was placement of antibiotics spacer. The patient had [address] Jama. The most recent surgery was in early November, he is status post revision decompression evacuation of epidural phlegmon, evacuation L4 5 and L5- S1 osteo-discitis with L4-S1 fusion and antibiotic spacer placement. Patient was receiving IV antibiotics at home. 5 Diffuse truncal rash, possibly consistent with "red man" syndrome secondary to vancomycin infusion. Currently on daptomycin 6 History of hypertension. 7 History of chronic back pain. 8 Suspect pickwickian syndrome. 9 Obesity. 10 Altered mentation, confusion and agitation, likely related to toxic metabolic encephalopathy. Improving Plan: Oxygenation improved down to 4 L high flow nasal cannula More calm and cooperative, continue Seroquel and the patient has no significant agitation. The patient is taking Seroquel 100 mg by mouth twice a day and cu rrently is off Precedex without any agitation. I was able to communicate with him appropriately. He wants to go Continue Haldol as needed Continue bronchodilators and daptomycin Decrease FiO2 as tolerated Chest x-ray in a.m. We will continue to follow
--- NOTE | 2020-12-16 08:03 | XR ---
EXAMINATION TYPE: XR chest 1V portable DATE OF EXAM: 12/16/2020 COMPARISON: Chest x-ray 12/14/2020 HISTORY: Fluid overload TECHNIQUE: Single frontal view of the chest is obtained. FINDINGS: Right-sided PICC line is again noted, distal tip is overlying superior vena cava. Cardiome diastinal silhouette is unchanged. Lung volumes are low. Mixed interstitial and airspace disease is n ot significantly changed, there is no pneumothorax or pleural effusion evident. IMPRESSION: Findings are similar to prior exam. Correlate for pneumonia, edema.
[2020-12-16] MEDS: IPRATROPIUM-ALBUTEROL 3 ML NEB INHALATION SCH ×4 (08:38→19:44)
[2020-12-16] MEDS: BUDESONIDE 1 MG/2 ML NEBU INHALATION SCH ×2 (08:38→19:44)
[2020-12-16] MEDS: FORMOTEROL FUMARATE 20 MCG/2 ML NEBU INHALATION SCH ×2 (08:38→19:44)
[2020-12-16] MEDS: METOPROLOL TARTRATE 25 MG TAB PO SCH (09:05)
[2020-12-16] MEDS: CITALOPRAM HYDROBROMIDE 20 MG TAB PO SCH (09:05)
[2020-12-16] MEDS: QUEtiapine 100 MG TAB PO SCH ×2 (09:05→21:23)
[2020-12-16] MEDS: FUROSEMIDE 10 MG/ML 4 ML VIAL IV SCH (09:05)
[2020-12-16] MEDS: HEPARIN SODIUM,PORCINE 5,000 UNIT/ML 1 ML VIAL SQ SCH ×2 (09:06→21:23)
--- NOTE | 2020-12-16 10:33 | P.PN ---
Subjective Patient is seen in follow-up for acute kidney injury, currently hemodialysis dependent. Started on hemodialysis 12/11/2020. Mentation is about the same as yesterday. Admits to good urine output. Per the nurse, urine output 1100 mL overnight. Creatinine today is up to 4.26. Hemodynamically stable. Vital signs are stable. General: The patient appeared well nourished and normally developed. HEENT: Head exam is unremarkable. Neck is without jugular venous distension. LUNGS: Breath sounds decreased. HEART: Rate and Rhythm are regular. ABDOMEN: Soft, nontender. EXTREMITITES: Trace edema. Objective - Vital Signs Vital signs: Vital Signs Temp 98.1 F 12/16/20 08:00 Pulse 84 12/16/20 10:00 Resp 12 12/16/20 10:00 BP 178/107 12/16/20 09:00 Pulse Ox 94 L 12/16/20 10:00 Intake & Output 12/15/20 12/16/20 12/16/20 18:59 06:59 18:59 Intake Total 420 480 300 Output Total 1100 1400 200 Balance -680 -920 100 Intake: IV 20 0.9 20 Oral 400 480 300 Output: Urine 1100 1400 200 - Labs CBC & Chem 7: 12/16/20 03:48 12/16/20 03:48 Labs: Abnormal Lab Results - Last 24 Hours (Table) 12/15/20 12/16/20 12/16/20 Range/Units 17:53 03:48 03:48 WBC 15.0 H (3.8-10.6) k/uL RBC 4.10 L (4.30-5.90) m/uL Hgb 11.9 L (13.0-17.5) gm/dL Hct 36.5 L (39.0-53.0) % Neutrophils # 11.0 H (1.3-7.7) k/uL Eosinophils # 2.2 H (0-0.7) k/uL BUN 67 H (9-20) mg/dL Creatinine 4.26 H (0.66-1.25) mg/dL Glucose 109 H (74-99) mg/dL POC Glucose (mg/dL) 104 H (75-99) mg/dL Total Protein 5.3 L (6.3-8.2) g/dL Albumin 3.0 L (3.5-5.0) g/dL 12/16/20 Range/Units 07:35 WBC (3.8-10.6) k/uL RBC (4.30-5.90) m/uL Hgb (13.0-17.5) gm/dL Hct (39.0-53.0) % Neutrophils # (1.3-7.7) k/uL Eosinophils # (0-0.7) k/uL BUN (9-20) mg/dL Creatinine (0.66-1.25) mg/dL Glucose (74-99) mg/dL POC Glucose (mg/dL) 104 H (75-99) mg/dL Total Protein (6.3-8.2) g/dL Albumin (3.5-5.0) g/dL Assessment and Plan Plan: Assessment: 1. Acute kidney injury secondary to ATN secondary to vancomycin toxicity and further worsened with the use of nonsteroidals, Shayne inhibitors as well as hypotension. Started on hemodialysis December 11. Baseline creatinine near 1. Nonoliguric. 2. Altered mental status with component of uremia. 3. Volume overload. Improving with ultrafiltration and diuresis. 4. 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 5. Hypokalemia from diuresis. Improved post replacement. Plan: Maintain IV Lasix. Hemodialysis today with goal 1-1/2-2 L ultrafiltration. Continue to monitor for renal recovery.
[2020-12-16 12:25] LABS: Glucose,Whole Blood 113 mg/dL (75-99)
--- NOTE | 2020-12-16 15:31 | P.PN ---
Subjective Progress Note Date: 12/16/20 Principal diagnosis: Renal failure vancomycin toxicity and men syndrome status post lumbar fusion Patient seen and examined this morning. He was fairly lucid for meals and this is the first time that I am able to evaluate him since his admission to the hospital under the medicine service with my colleagues as backup. He is able to converse with me and tell me what was going on. He states that he really has no pain in his back has been up in chair and moving around. He is on hemodialysis. He did not have dialysis yesterday but will likely have it today. Creatinine has been trending downwards however is still elevated at 4 and actually increased from yesterday. He denies any fevers chills shortness breath or chest pain at this time. He denies any blurred vision double vision change in vision. He states no weakness numbness tingling or pain in his lower extremities bilaterally. He denies any perineal numbness or tingling. He denies any bowel or bladder issues. He currently had a good bowel movement yesterday and has been urinating on his own. Objective - Vital Signs Vital signs: Vital Signs Temp 98.2 F 12/16/20 12:00 Pulse 83 12/16/20 13:00 Resp 15 12/16/20 13:00 BP 135/89 12/16/20 13:00 Pulse Ox 97 12/16/20 13:00 Intake & Output 12/15/20 12/16/20 12/16/20 18:59 06:59 18:59 Intake Total 420 480 400 Output Total 1100 1400 300 Balance -680 -920 100 Weight 131.542 kg Intake: IV 20 0.9 20 Oral 400 480 400 Output: Urine 1100 1400 300 - Exam PHYSICAL EXAMINATION: Vitals: Stable at this time General: Awake, alert, appropriate for age, in no acute distress. HEENT: No unusual neck masses around region of lateral neck triangle, thyroid, supraclavicular groove. Extremities: Skin warm and dry without no acute lesions, coloration, temperature, skin intact, no tenderness or erythema. Integument: Hairy patches: Absent Dorsal skin dimples: Absent Cafe au la[employer] spots: Absent Surgical incisions: Incision is well-healed clean dry and intact no erythema or ecchymosis or edema no dehiscence. In place just for protection as patient is lying on back a lot Palpation: Please see Pain drawing on Intake sheet for further detail. (Tenderness = T, Nontender = NT, Swelling = S, Ecchymosis = E) Findings on Midline and paraspinal palpation and percussion: Cervical: NT Thoracic: NT Lumbar: NT Sacral: NT Special findings: None POSTURAL and MUSCULO-SKELETAL EVALUATION: Neck ROM: Unrestricted in six directions Lumbar ROM: Unrestricted in six directions Shoulder ROM: Symmetric in abduction, ER/IR Hip ROM: Symmetric in abduction, adduction, ER/IR Knee ROM: Symmetric and intact in Flexion / extension Hands: Normal appearing structure L and R Feet: Normal appearing structure L and R VASCULAR STATUS : Wrist Pulses: 2/4 bilateral radial and ulnar Pedal Pulses: 2/4 bilateral DP and PT Color: Normal Edema: None NEUROLOGIC EXAMINATION: Mental Status: Awake and alert, fully oriented, with normal attention, concentration and memory, and fluent, appropriate speech. Cranial Nerves: I: Olfactory not tested. II: Visual acuity normal, no visual field deficit noted with confrontation. III,IV: Normal pupillary reflexes & intact extraocular movements without nystagmus. V,: Intact symmetrical facial sensation. VII: Intact symmetrical facial motor movement VIII: Hearing intact. IX,X: Intact gag, swallow, & normal voice. XI: Sternocleidomastoid, trapezius function intact. XII: Tongue midline with normal movements. Special Tests: L'hermitte's Sign: Absent Spurling'Sign: Absent Bilateral Cubital percussion test: Absent Bilateral Karolina-Tinel sign - Carpal region: Absent Bilateral Straight Leg Raising: Absent Bilateral Motor Exam (0-5/5, N/T) STRENGTH UPPER EXTREMITY Shoulder Abd (Not part of DONNY Motor score): RIGHT 5 LEFT 5 Elbow Flexors: RIGHT 5 LEFT 5 Elbow Extensor: RIGHT 5 LEFT 5 Wrrist Dorsiflexors: RIGHT 5 LEFT 5 Finger Abductor: RIGHT 5 LEFT 5 [employer]: RIGHT 5 LEFT 5 LOWER EXTREMITY Hip Flexor (Not part of DONNY Motor Score): RIGHT 5 LEFT 5 Knee Flexor: RIGHT 5 LEFT 5 Knee Extensor: RIGHT 5 LEFT 5 Ankle Dorsiflexion: RIGHT 5 LEFT 5 Ankle Plantarflexion: RIGHT 5 LEFT 5 EHL: RIGHT 5 LEFT 5 FHL: RIGHT 5 LEFT 5 DONNY Motor Score: RIGHT 50/50 LEFT 50/50 REFLEXES Biecp: RIGHT 2 LEFT 2 Tricep: RIGHT 2 LEFT 2 Brachioradialis: RIGHT 2 LEFT 2 Patellar: RIGHT 2 LEFT 2 Achilles: RIGHT 2 LEFT 2 Pathological Reflexes Zavala's: RIGHT Absent LEFT Absent Babinski: RIGHT Absent LEFT Absent Clonus: RIGHT None LEFT None SENSORY Joint Position: Intact bilaterally Vibration Intact bilaterally Pain and LT sense Intact C5-T1 and L2-S1 Dermatomal deficit None - Labs CBC & Chem 7: 12/16/20 03:48 12/16/20 03:48 Labs: Abnormal Lab Results - Last 24 Hours (Table) 12/15/20 12/16/20 12/16/20 Range/Units 17:53 03:48 03:48 WBC 15.0 H (3.8-10.6) k/uL RBC 4.10 L (4.30-5.90) m/uL Hgb 11.9 L (13.0-17.5) gm/dL Hct 36.5 L (39.0-53.0) % Neutrophils # 11.0 H (1.3-7.7) k/uL Eosinophils # 2.2 H (0-0.7) k/uL BUN (9-20) mg/dL Creatinine (0.66-1.25) mg/dL Glucose (74-99) mg/dL POC Glucose (mg/dL) 104 H (75-99) mg/dL Hemoglobin A1c 6.3 H (4.0-6.0) % Total Protein (6.3-8.2) g/dL Albumin (3.5-5.0) g/dL 12/16/20 12/16/20 12/16/20 Range/Units 03:48 07:35 12:24 WBC (3.8-10.6) k/uL RBC (4.30-5.90) m/uL Hgb (13.0-17.5) gm/dL Hct (39.0-53.0) % Neutrophils # (1.3-7.7) k/uL Eosinophils # (0-0.7) k/uL BUN 67 H (9-20) mg/dL Creatinine 4.26 H (0.66-1.25) mg/dL Glucose 109 H (74-99) mg/dL POC Glucose (mg/dL) 104 H 113 H (75-99) mg/dL Hemoglobin A1c (4.0-6.0) % Total Protein 5.3 L (6.3-8.2) g/dL Albumin 3.0 L (3.5-5.0) g/dL Assessment and Plan Assessment: Status post evacuation paraspinal and epidural phlegmon with L4 to S1 osteo-disc itis status post L4 to S1 posterior stabilized fusion with antibiotic cement spacer placement and antibiotic bead placement Vancomycin toxicity, 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 Deferre to medicine and nephrology ID for current management -Pain control: Adequate at this time -Aggressive ambulation protocol. OOB with all meals. OOB or in chair 4-5x daily. -PT/OT -TEDs, SCDs, mechanical ppx. OK for heparin today. Early ambulation is best. -GI ppx. -[No further imaging needed at this time] -Trend labs. -No surgical intervention at this time -Dispose: Pending
[2020-12-16 19:16] LABS: Glucose,Whole Blood 162 mg/dL (75-99)
[2020-12-16 20:41] LABS: Glucose,Whole Blood 110 mg/dL (75-99)
--- NOTE | 2020-12-16 23:09 | PN ---
PROGRESS NOTE DATE OF SERVICE: 12/16/2020 REASON FOR FOLLOWUP: 1. Paraspinal abscess. 2. Drug rash. INTERVAL HISTORY: The patient is currently afebrile. The patient is more awake and alert. He is breathing comfortably. Denies having any chest pain or cough. No abdominal pain. Pain to the back area is currently controlled. PHYSICAL EXAMINATION: Blood pressure 138/87, pulse 81, temperature 98.3. He is 92% on 2 L nasal cannula. General description is a middle-aged male lying in bed in no distress. RESPIRATORY SYSTEM: Unlabored breathing with decreased breath sounds at the base. No wheeze. HEART: S1, S2. Regular rate and rhythm. ABDOMEN: Soft. No tenderness. LABS: Hemoglobin is 11.1, white count 15. BUN of 67, creatinine 4.26. DIAGNOSTIC IMPRESSION AND PLAN: 1. Patient with a lumbar paraspinal abscess, status post drainage. Culture positive for Staph epidermidis. The patient is currently covered with daptomycin; to continue to finish his 6-week course of therapy. 2. Patient with a drug rash resolved with discontinuation of vancomycin and steroids which should be slowly tapered off. MMODL / IJN: [id number] / PRINCE
--- NOTE | 2020-12-16 23:51 | P.PN ---
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 Patient states that when she had GI bleed she had similar symptoms and presents to ER for evaluation. Patient states that she was having some dark-colored stools during the last 2 days which she attributes to her food intake. Patient also complaining of shortness of breath with exertion. No chest pain. On and off leg swelling currently denied any leg swelling. No fever no chills. No cough or sputum production. No recent illnesses or infections. No recent travel. Chest x-ray showed no evidence of acute pulmonary disease EKG showed normal sinus rhythm with left atrial enlargement. Patient is has history of heart murmur for which patient was seen by cardiology in the past. Laboratory showed hemoglobin level was 6.5 on admission and FOBT positive. BUN 14 creatinine 0.81 potassium 4.5 sodium 136 and blood sugar is 214 and magnesium 1.1 and calcium 10.4 coronavirus PCR is not detected. 12/07/2020 Patient is currently sitting in a chair. Awake alert oriented x3. Patient was started on capsule endoscopy study. Denied any complaints abdominal pain. Hemoglobin is at 7.0 today. No headache or dizziness or lightheadedness. GI is following. Continue insulin sliding scale and blood sugar control. 12/08/2020 Patient is currently resting in the bed comfortably. Denied any complaints of nausea vomiting or abdominal pain or diarrhea. Patient did have brown bowel movement today. Hemoglobin level is 7.1 today. Report pending for capsule endoscopy. GI is on board. Patient was started on oral diet and adjust insulin dose. subjective 12/09/20 this is a pleasant 45 years old male who presents because of fever and generalized macular papular rash , thought to be secondary to vancomycin toxicity , patient was on vancomycin for lumbar abscess , he is a status post laminectomy secondary to staph epidermidis resistant to oxacillin. Also with acute kidney injury and creatinine is 7.8 today with nephrology on the case and possible hemodialysis patient today he has some sleep breathing difficulty , he states that he has s leep apnea but not using BiPAP/CPAP at home. he denies previous diagnosis of COPD however his cutting back his smoking from 1.5 down to 0.5 pack per day , however patient is already on Solu-Medrol 60 mg 4 times a day for his rash He is a little short of breath today. No chest pain or coughing. No abdominal pain. He thinks his rash is the same but it itching improved , although is not resolved completely. Also he is on daptomycin and gentle hydration with normal saline at 50 mL per hour ID team and contact lens inspector teams the case 12/10/2020 Patient still with some respiratory distress, he is on BiPAP overnight. This will help decrease air intraorally with scattered wheezing. His still on Solu- Medrol His extremity and trunk rash is better. He is for Right inguinal catheter was placed for hemodialysis. Patient most likely is going for hemodialysis per nephrology team. She denies any other new complaints, no chest pain, he denies abdominal pain, no nausea vomiting or diarrhea. No fever Orthopedic team input is appreciated and they recommended CT of the lumbar spine 12/11/2020 Patient is still short of breath especially with exertion, still have expiratory wheezing with prolonged expiration and continue on Solu-Medrol 60 mg and daptomycin for that His rash is significantly improving and fading away with some scale and he is hemodynamically stable however he needs 6 L of oxygen to keep saturation at 94% WBC is back to normal today at 8.9. remains on daptomycin for lumbar abscess, CAT scan of the lumbar spine ordered by orthopedic team is pending. ESR IV fluid was stopped and now he is currently receiving Lasix 40 mg daily. patient received hemodialysis yesterday and today. 12/12/2020 Today patient was more confused and he still the Neck and dyspneic with extensive expiratory wheezing. His saturation was low 90s, however his oxygen requirement increased to 15 L via nonrebreather. With ABG showing pH of 7.49 slightly elevated and low pO2 and 48 and pCO2 of 28. Chest x-ray: Showing diffuse bilateral infiltrates suspicious for diffuse pneumonia which is is unl ikely and most likely patient has fluid overload. Labs showing normal WBC at 8.1K, hemoglobin 12.3. BMP is stable with normal electrolytes. Creatinine is expected to be high 7.3. Sugar control 118-186. Liver enzymes not elevated. Patient remains on daptomycin, Solu-Medrol 60 mg and Lasix 40 mg IV daily. Most likely patient will go to the intensive care unit for pulmonary team recommendations 12/13/2020 Patient both to the ICU yesterday. Patient is awake, he looks a little upset, he keeps his oxygen off and asked him to put it back but he refuses after I explained the risk for him. Sitter At bedside He denies any pain. He still feels short of breath with expiratory wheezing. Yesterday he was on 15 L oxygen via nasal cannula which was the same but during the evening his requirement went down to 10 L via nasal cannula. Labs and glucose looks stable. Continue with Lasix 80 mg IV per contact lens inspector. Also he is on Solu-Medrol 40 mg IV twice daily and daptomycin. patient to continue with hemodialysis today and tomorrow per contact lens inspector 12/14/2020 Patient ICU still with agitation at time eventually he was sleeping this morning but it was very hard for staff to come down throughout all night. Patient still with dyspnea and expiratory wheezing. And still undergoing hemodialysis today. Because of these his steroids also the Medrol 40 mg once stopped today and his Seroquel was increased to 100 mg twice a day Other than that he is hemodynamically stable.He is saturating 92% on 2 L oxygen via nasal cannula Chest x-ray showing persistent bilateral consolidation or infiltrate, suspicious for pulmonary congestion He remains on daptomycin Next hemodialysis is on Wednesday, while tomorrow Wednesday he will go without treatment 12/15/2020 Patient is seen today in the ICU less agitated and confused however he was standing naked in the ICU asked to go home today. I explained to the patient is not medical ready to go home. Especially he is still on 60 L of oxygen via nasal cannula and a still getting hemodialysis. However it was noticed today is less dyspneic and is expiratory wheezing is significantly improved He is hemodynamically stable. No hemodialysis today and will be resumed tomorrow per nephrology team recommendation Slight leukocytosis 11.4 K probably from steroid effect. I did glucose is controlled. Continue with daptomycin 12/16/2020 Patient awake and breathing better with less wheezing. Still undergoing hemodialysis His oxygen requirements Down to 4 L to Achieve 94% on Room Air. Sugar Controlled and Lateral Leukocytosis at 15 K. Ferritin Is 4.2. Electrolytes Are Stable. Liver Enzymes Not Elevated Patient Is Improving Gradually and Out Of Bed to Chair Is Recommended. Review of systems CONSTITUTIONAL: No fever, no malaise, no fatigue. HEENT: No recent visual problems or hearing problems. Denied any sore throat. CARDIOVASCULAR: No orthopnea, PND, no palpitations, no syncope. -PULMONARY: Positive for shortness of breath, no cough, no hemoptysis. GASTROINTESTINAL: No diarrhea, no nausea, no vomiting, no abdominal pain. Normoactive bowel sounds. NEUROLOGICAL: No headaches, no weakness, no numbness.\ Active Medications Generic Name Dose Route Start Last Admin Trade Name Freq PRN Reason Stop Dose Admin Acetaminophen 650 mg 12/07/20 16:47 12/08/20 22:18 Acetaminophen Tab 325 Mg Tab PO 650 mg Q6HR PRN Administration Mild Pain or Fever > 100.5 Albuterol/Ipratropium 3 ml 12/09/20 16:00 12/16/20 19:44 Ipratropium-Albuterol 3 Ml Neb INHALATION Not Given RT-QID ZECHARIAH Albuterol/Ipratropium 3 ml 12/09/20 13:03 Ipratropium-Albuterol 3 Ml Neb INHALATION RT-Q2H PRN Shortness Of Breath Or Wheezing Bisacodyl 5 mg 12/07/20 19:33 Bisacodyl 5 Mg Tablet.Dr PO DAILY PRN Constipation Budesonide 1 mg 12/09/20 20:00 12/16/20 19:44 Budesonide 1 Mg/2 Ml Nebu INHALATION Not Given RT-BID ZECHARIAH Citalopram Hydrobromide 20 mg 12/08/20 09:00 12/16/20 09:05 Citalopram Hydrobromide 20 Mg Tab PO 20 mg DAILY ZECHARIAH Administration Formoterol Fumarate 20 mcg 12/09/20 20:00 12/16/20 19:44 Formoterol Fumarate 20 Mcg/2 Ml Nebu INHALATION Not Given RT-BID ZECHARIAH Furosemide 80 mg 12/13/20 09:00 12/16/20 09:05 Furosemide 10 Mg/Ml 4 Ml Vial IV 80 mg DAILY ZECHARIAH Administration Haloperidol Lactate 2 mg 12/12/20 13:54 12/15/20 00:17 Haloperidol Lactate 5 Mg/Ml 1 Ml Vial IVP 2 mg Q4HR PRN Administration Agitation or Acute Psychosis Heparin Sodium (Porcine) 5,000 unit 12/09/20 10:45 12/16/20 21:23 Heparin Sodium,Porcine 5,000 Unit/Ml 1 Ml Vial SQ 5,000 unit Q12HR ZECHARIAH Administration Daptomycin 800 mg/ Sodium 50 mls @ 100 mls/hr 12/09/20 20:00 12/15/20 21:35 Chloride IVPB 100 mls/hr Q48H ZECHARIAH Administration Protocol Insulin Aspart 0 unit 12/10/20 12:30 12/16/20 20:45 Insulin Aspart (Novolog) 100 Unit/Ml Vial SQ Not Given ACHS [facility] Protocol Lidocaine 1 patch 12/07/20 19:33 Lidocaine 5% Patch TOPICAL DAILY PRN Pain Metoprolol Tartrate 25 mg 12/08/20 09:00 12/16/20 09:05 Metoprolol Tartrate 25 Mg Tab PO 25 mg DAILY ZECHARIAH Administration Naloxone HCl 0.2 mg 12/07/20 16:47 Naloxone 0.4 Mg/Ml 1 Ml Vial IV Q2M PRN Opioid Reversal Oxycodone/Acetaminophen 1 each 12/07/20 16:34 12/16/20 21:23 Oxycodone-Apap 10-325mg 1 Each Tab PO 1 each Q4H PRN Administration Pain Polyethylene Glycol 17 gm 12/07/20 19:33 Polyethylene Glycol 3350 17 Gm Powd.Pack PO DAILY PRN Constipation Quetiapine Fumarate 100 mg 12/14/20 09:00 12/16/20 21:23 Quetiapine 100 Mg Tab PO 100 mg BID ZECHARIAH Administration Senna/Docusate Sodium 1 each 12/07/20 19:33 Sennosides-Docusate Sodium 1 Each Tab PO BID PRN Constipation Objective - Vital Signs Vital signs: Vital Signs Temp 98.1 F 12/16/20 15:44 Pulse 87 12/16/20 16:00 Resp 10 L 12/16/20 16:00 BP 135/79 12/16/20 17:00 Pulse Ox 96 12/16/20 16:00 Intake & Output 12/16/20 12/16/20 12/17/20 06:59 18:59 06:59 Intake Total 480 1000 Output Total 1400 2200 Balance -920 -1200 Weight 131.542 kg Intake: Oral 480 1000 Output: Urine 1400 700 Hemodialysis 1500 Other: # Voids 2 - Exam -GENERAL: The patient is alert and oriented x3, not in any acute distress. Obese HEENT: Pupils are round and equally reacting to light. EOMI. No scleral icterus. No conjunctival pallor. Normocephalic, atraumatic. No pharyngeal erythema. No thyromegaly. CARDIOVASCULAR: S1 and S2 present. No murmurs, rubs, or gallops. PULMONARY: Chest is clear to auscultation, no wheezing or crackles. ABDOMEN: Soft, nontender, nondistended, normoactive bowel sounds. No palpable organomegaly. -MUSCULOSKELETAL: No joint swelling or deformity. Midline lower back scar, healed with no drainage or open wound EXTREMITIES: No cyanosis, clubbing, or pedal edema. NEUROLOGICAL: Gross neurological examination did not reveal any focal deficits. -SKIN: no petechiae. He has extensive rash, maculopapular previous more confluent on the chest, back and extending into most of the abdomen as well as extremities. No mouth ulcer -Genitalia: Patient refused - Labs CBC & Chem 7: 12/16/20 03:48 12/16/20 03:48 Labs: Abnormal Lab Results - Last 24 Hours (Table) 12/16/20 12/16/20 12/16/20 Range/Units 03:48 03:48 03:48 WBC 15.0 H (3.8-10.6) k/uL RBC 4.10 L (4.30-5.90) m/uL Hgb 11.9 L (13.0-17.5) gm/dL Hct 36.5 L (39.0-53.0) % Neutrophils # 11.0 H (1.3-7.7) k/uL Eosinophils # 2.2 H (0-0.7) k/uL BUN 67 H (9-20) mg/dL Creatinine 4.26 H (0.66-1.25) mg/dL Glucose 109 H (74-99) mg/dL POC Glucose (mg/dL) (75-99) mg/dL Hemoglobin A1c 6.3 H (4.0-6.0) % Total Protein 5.3 L (6.3-8.2) g/dL Albumin 3.0 L (3.5-5.0) g/dL 12/16/20 12/16/20 12/16/20 Range/Units 07:35 12:24 19:14 WBC (3.8-10.6) k/uL RBC (4.30-5.90) m/uL Hgb (13.0-17.5) gm/dL Hct (39.0-53.0) % Neutrophils # (1.3-7.7) k/uL Eosinophils # (0-0.7) k/uL BUN (9-20) mg/dL Creatinine (0.66-1.25) mg/dL Glucose (74-99) mg/dL POC Glucose (mg/dL) 104 H 113 H 162 H (75-99) mg/dL Hemoglobin A1c (4.0-6.0) % Total Protein (6.3-8.2) g/dL Albumin (3.5-5.0) g/dL 12/16/20 Range/Units 20:40 WBC (3.8-10.6) k/uL RBC (4.30-5.90) m/uL Hgb (13.0-17.5) gm/dL Hct (39.0-53.0) % Neutrophils # (1.3-7.7) k/uL Eosinophils # (0-0.7) k/uL BUN (9-20) mg/dL Creatinine (0.66-1.25) mg/dL Glucose (74-99) mg/dL POC Glucose (mg/dL) 110 H (75-99) mg/dL Hemoglobin A1c (4.0-6.0) % Total Protein (6.3-8.2) g/dL Albumin (3.5-5.0) g/dL Assessment and Plan Assessment: Nonoliguric Acute kidney injury due to ATN secondary to hypotension and toxicity to vancomycin.is getting hemodialysis Ongoing and recent lumbar abscess status post laminectomy secondary to staph epidermidis resistant to oxacillin Acute COPD exacerbation and possible obstructive sleep apnea, continue with CPAP/BiPAP and steroids Echo type of sick respiratory failure secondary to above Maculopapular rash, improving Lactic acidosis, resolved Mild Hypovolemic hyponatremia Recent L4- S1 fusion surgery and revision and incision and drainage with antibiotic spacer. Hypertension currently not hypertensive Morbid obesity with BMI 41.6 Possible history of obstructive sleep apnea as per patient, not on CPAP and BiPAP Plan: This is a pleasant 45 years old male who presents with vancomycin toxicity, lumbar abscess, JENNIFER needing hemodialysis. Continue with daptomycin as per ID team recommendation. Discontinue Solu-Medrol for agitation. DC IV fluids.Continue with hemodialysis as per nephrology team follow-up with client insights consultant in addition. Patient will be monitored in intensive care unit Continued with pain management and follow up closely. Labs and medication were reviewed.. Continue same treatment. Continue with symptomatic treatment. Resume home medication. Monitor lytes and vitals. DVT and GI prophylaxis. Further recommendations as per clinical course of the patient DVT prophylaxis: Subcutaneous heparin GI Prophylaxis: Pepcid PT/OT: Home health care versus inpatient rehab Prognosis is guarded
[2020-12-17] MEDS: oxyCODONE-APAP 10-325MG 1 EACH TAB PO PRN ×3 (02:42→20:34)
[2020-12-17 07:07] LABS: Glucose,Whole Blood 106 mg/dL (75-99)
[2020-12-17] MEDS: INSULIN ASPART (NovoLOG) 100 UNIT/ML VIAL SQ SCH ×4 (07:38→20:30)
[2020-12-17] MEDS: BUDESONIDE 1 MG/2 ML NEBU INHALATION SCH (08:33)
[2020-12-17] MEDS: FORMOTEROL FUMARATE 20 MCG/2 ML NEBU INHALATION SCH (08:33)
[2020-12-17] MEDS: IPRATROPIUM-ALBUTEROL 3 ML NEB INHALATION SCH (08:33)
--- NOTE | 2020-12-17 08:39 | P.PN ---
Subjective Progress Note Date: 12/17/20 Acute hypoxic respiratory failure, obstructive sleep apnea, fluid volume overload, acute kidney injury This is a 45-year-old male who presented to the emergency department on September 06 complaining of fever, and a rash. He is postop revision of L4-L5 with L4 through S1 fusion, and placement of antibiotic spacer. We actually know this patient because he came back from the operating room initially to the intensive care unit on the ventilator. He was quite rambunctious, and the patient was eventually extubated without a formal spontaneous breathing trial. The patient was apparently started on vancomycin 3 times a day for osteomyelitis. The patient presented to the emergency room on the with 2 days of fever and rash. The rash looks like a red man syndrome rash. It was extending in the back of his neck and extending down his whole back and sides of his chest. The surgery was done by Dr. Jama, and he recently saw him in the office. We were called in today because there was an "A" team called on the patient. The patient was apparently manifesting some respiratory distress. One of the charge nurses from the ICU, thought the patient was just a deep sleeper and probably lemus ffering from some sleep apnea syndrome. The patient apparently does have a history of sleep apnea, but does not wear his CPAP/BiPAP device. She did not feel like the patient needed to be transferred down to the intensive care unit. Anyway, and we saw the patient, the patient was a bit sleepy, we recommended Solu-Medrol, Perforomist, and Pulmicort updrafts, and DuoNeb 4 times a day and when necessary. In addition, a blood gas was ordered but I didn't think it was necessary. Finally, we recommended BiPAP at 12/5 and 50%. We encouraged the patient to wear it until he started doing better. We'll be went to go see him, his saturations were in the low 90s, and at that time, he was on 6 L nasal cannula. He did arouse and respond appropriately. On 12/10/2020 patient seen in follow-up. He remains on BiPAP support, tolerating it well, resting comfortably in bed, BiPAP pressures of 12 and 5 and 50%, his lung sounds are diminished, he is a urine output has been diminished, his renal function continues to worsen, today's BUN is up to 73 and creatinine is 9.8 with potassium of 5.7, temporary emergent hemodialysis catheter was placed in the femoral area, and patient will have his hemodialysis treatment today, the rest of his blood work has been reviewed, showing white blood cell count of 15, hemoglobin is 11. His urinalysis showed possibility of a urinary tract infection, his blood and urine cultures have been negative, gastric chest x-ray showed bilateral patchy airspace disease, low lung volumes. Patient remains on daptomycin, and treatments, IV steroids. He is on IV Lasix 40 mg daily. Has not had significant diuresis On 12/11/2020 patient seen in follow-up, he is currently off BiPAP support, he is on 6 L of oxygen, he had hemodialysis treatment yesterday with removal of 1 L of fluid, and today he is having another session of hemodialysis with a goal of removing 2 L, he is still be drowsy, but more responsive to verbal stimulation, he has had no fever or chills, no recent chest x-ray. Remains on IV diuretics with Lasix 40 mg daily, IV steroids and breathing treatments. Continues on labs reviewed, slight improvement in renal profile, with B1 is 65 and creatinine of 8.1, potassium is 4.7. She continues on daptomycin, vancomycin has been discontinued, he is on IV steroids, and Benadryl for persistent rash possibly related to vancomycin. On 12/12/2020 patient is seen in follow-up on medical surgical floor, yesterday he had hemodialysis done with removal of 2.5 L of fluid, and today is having another hemodialysis session with the goal of removing 2.5 L, he is more awake today, he is currently on 6 L, he is agitated at times, and removes his oxygen. At times confused, at times not cooperative. Chest x-ray today shows diffuse interstitial pattern. Patient remains on daptomycin, but has significant rash, which looks very dry flaky on today's exam. He continues on IV Solu-Medrol every 6, Benadryl, he is given some pain medications. Still seems generally swollen, more gas was completed following hemodialysis recurrent showing pO2 of only 40%, pCO2 of 37, pH of 7.49 and this was done and FiO2 of 44% and subsequently his FiO2 was increased up to 100% nonrebreather mask. In view of his cardiorespiratory status, encephalopathy, confusion and agitation, moving his oxygen mask off we decided to move into the intensive care unit for closer monitoring. ProBNP was ordered and came back at 9570, pro-calcitonin was sent and is pending at this time, CRP is 85.3. His labs before hemodialysis showed creatinine is 7.35, and BUN of 50, and electrolytes are within normal limits. The patient is seen today 12/13/2020 in follow-up in the intensive care unit. He is transferred here yesterday with increasing restlessness increasing oxygen needs and altered mental status. He is currently on 15 L high flow nasal cannula. No current IV fluids. He did receive hemodialysis yesterday with 2.5 L removed. Plan is for repeat hemodialysis today. Chest x-ray continues to show patchy bilateral densities within the lungs. Stable compared to previous. Right-sided PICC line in place. Urine culture revealed no growth. Blood cultures revealed no growth. White count 7.5. Hemoglobin 9.6. Sodium 135. Potassium 3.9. Creatinine 4.88. He remains on DuoNeb inhalations, Pulmicort and Perforomist inhalations, IV Solu-Medrol. Antibiotics in the form of daptomycin. The patient is seen today 12/14/2020 in follow-up in the intensive care unit. He is currently resting comfortably in bed. He is quite restless and agitated throughout the night. Security assistance was required. He has received Haldol, Seroquel, on Precedex at 0.7 mcg/kg per hour. He is requiring 10 L high flow nasal cannula to maintain O2 saturations in the 90s. Chest x-ray reveals faint bilateral multifocal infiltrates. No significant change. Urine culture revealed no growth. Blood culture revealed no growth. White count 9.2. Hemoglobin 10.4. Sodium 136. Potassium 4.5. Creatinine 3.92. He remains on daptomycin. IV diuretics. Bronchodilators and IV Solu-Medrol. The patient is seen today 12/15/2020 and follow-up in the intensive care unit. He is currently sitting up in a recliner at the bedside. More awake and alert. More calm and cooperative today. Maintaining O2 saturations in the 90s on 6 L/m per nasal cannula. No current IV fluids. He did receive hemodialysis yesterday with 2 L removed. His urine output has picked up as well. Blood and urine cultures reveal no growth. White count 11.4. Hemoglobin 11.0. Platelet count 206. Sodium 136. Potassium 3.6. Creatinine 3.58. Glucose 107. He remains on daptomycin, bronchodilators, IV diuretics. He is on Seroquel 100 mg twice a day. Off Precedex. Last Haldol required at midnight. On 12/16/2020 the patient is being seen in follow-up in the intensive care unit. The patient has recovered from his rash. Note that the patient toxicity to vancomycin. The patient developed an acute kidney injury related to vancomycin toxicity and the patient developed also Curry syndrome. The renal function is still in.. Creatinine from today 4.26 with a BMI of 67. The patient produced 1 L of urine output overnight. As such, the patient is non-oliguric at this point in time. His last session of hemodialysis was on 12/14/2020 with a total of 2 L of fluid was removed. No dialysis was done yesterday. The blood cultures are negative. The patient has a white cell count of 15 with a hemoglobin of 11.9. The patient has a single lumen PICC in the right upper extremity and the patient has a right femoral hemodialysis catheter in place. His cardiac rhythm is sinus. He does have some sinus bradycardia with sleeping knowing that the patient has obvious clinical features of obstructive sleep apnea. He is currently on 4 L of oxygen by nasal cannula with a pulse of 75%. He is t olerating his diet. He had a loose bowel movement on 12/15/2020. The patient has ongoing osteomyelitis on antibiotics. Spine surgeries also on the case. He is currently off the BiPAP. The chest x-ray still showing a component of mild pulmonary vascular congestion. Remains on DuoNeb nebulized treatments around the clock. Remains on Pulmicort and Perforomist nebulized treatments. The patient shows no significant agitation. The patient is on Seroquel 100 mg by mouth twice a day and Haldol on an as-needed basis. Precedex has been discontinued. On 12/17/2020, I'm seeing this patient for a follow-up. The patient is resting comfortably on room air oxygen. No chest x-ray was done today. Noted respiratory distress. She remains on IV antibiotics with daptomycin and vancomycin has been discontinued. He is receiving 800 mg every 48 hours. The repeat cultures were negative. Meanwhile, the patient has no rash. The patient has developed an acute kidney injury, nonoliguric related to vancomycin toxicity/ATN and the patient underwent another session of hemodialysis yesterday for a creatinine of 4.26. Follow-up labs from today are still pending. Meanwhile, his produced adequate urine output in the order of 1.700 mL over the past 24 hours. As such, the patient is nonoliguric. The patient has a single lumen PICC in his right upper extremity. He also has a diagnosis And his femoral vein. His cardiac rhythm is sinus. He has ongoing issues with back pain. Surgical wound site is dry clean and intact. The patient is on a medical surgical floor overflow currently in the intensive care unit. He wanted to go home yesterday, however this is not possible especially with this ongoing renal failure. His Seroquel is currently at 100 mg twice a day. Is lethargic. No agitation. No confusion. No delirium. He is somnolent under the effect of Seroquel. No agitation. Objective - Vital Signs Vital signs: Vital Signs Temp 98.2 F 12/17/20 02:30 Pulse 87 12/17/20 02:30 Resp 16 12/17/20 02:30 BP 130/90 12/17/20 02:30 Pulse Ox 92 L 12/17/20 02:30 Intake & Output 12/16/20 12/17/20 12/17/20 18:59 06:59 18:59 Intake Total 1000 400 Output Total 2200 Balance -1200 400 Weight 131.542 kg Intake: Oral 1000 400 Output: Urine 700 Hemodialysis 1500 Other: # Voids 2 3 - Exam GENERAL EXAM: Awake, alert, more cooperative, 45 -year-old male patient, currently on room air oxygen HEAD: Normocephalic/atraumatic. EYES: Normal reaction of pupils, equal size. Conjunctiva pink, sclera white. NOSE: Clear with pink turbinates. THROAT: No erythema or exudates. NECK: No masses, no JVD, no thyroid enlargement, no adenopathy. CHEST: No chest wall deformity. Symmetrical expansion. LUNGS: Equal air entry with crackles in the bilateral posterior bases CVS: Regular rate and rhythm, normal S1 and S2, no gallops, no murmurs, no rubs ABDOMEN: Soft, nontender. No hepatosplenomegaly, normal bowel sounds, no guarding or rigidity. EXTREMITIES: No clubbing, no edema, no cyanosis, 2+ pulses and upper and lower extremities. MUSCULOSKELETAL: Muscle strength and tone normal. SPINE: Dressing to previous lumbar surgery dry and intact. No scoliosis or deformity SKIN: Patient has improving red confluent rash all over patient's face, shoulders, neck, abdomen, back and upper thighs. The surgical wound site over the lower lumbar region is dry clean and intact CENTRAL NERVOUS SYSTEM: More calm and cooperative. No focal deficits, tone is normal in all 4 extremities. - Labs CBC & Chem 7: 12/16/20 03:48 12/16/20 03:48 Labs: Abnormal Lab Results - Last 24 Hours (Table) 12/16/20 12/16/20 12/16/20 Range/Units 03:48 12:24 19:14 POC Glucose (mg/dL) 113 H 162 H (75-99) mg/dL Hemoglobin A1c 6.3 H (4.0-6.0) % 12/16/20 12/17/20 Range/Units 20:40 07:05 POC Glucose (mg/dL) 110 H 106 H (75-99) mg/dL Hemoglobin A1c (4.0-6.0) % Assessment and Plan Plan: 1 Acute on chronic hypoxemic respiratory failure, likely secondary to br onchospasm, fluid overload as well as sleep apnea syndrome, noncompliant with CPAP/BiPAP. The patient is on room air oxygen for now. Not utilizing any form of CPAP or BiPAP. He was quite bronchospastic and wheezy and he remains on DuoNeb nebulized treatments 4 times a day in combination with Perforomist and Pulmicort neb last treatment twice a day. 2 Acute kidney injury, secondary to vancomycin toxicity as the patient's vancomycin level was 67 admission in addition to the use of nonsteroidal anti- inflammatory medication CAROL inhibitor's and hypotension. The patient is currently on hemodialysis. The last dialysis was yesterday and the patient had a total of 1.5 L of fluid removed. Awaiting follow-up electrolytes and blood work. His oxidation improved postdialysis and currently is on room air oxygen. He does have a temporary dialysis catheter in his groin. 3 Possible underlying sepsis secondary to osteomyelitis. 4 L4 through S1 fusion. Epidural phlegmon requiring evacuation there was placement of antibiotics spacer. The patient had [address] Jama. The most recent surgery was in early November, he is status post revision decompression evacuation of epidural phlegmon, evacuation L4 5 and L5- S1 osteo-discitis with L4-S1 fusion and antibiotic spacer placement. Patient was receiving IV antibiotics at home. 5 Diffuse truncal rash, possibly consistent with "red man" syndrome secondary to vancomycin infusion. Currently on daptomycin 800 mg every 48 hours and the rash has recovered 6 History of hypertension. 7 History of chronic back pain. 8 Suspect pickwickian syndrome. 9 Obesity. 10 Altered mentation, confusion and agitation, likely related to toxic metabolic encephalopathy. Improving Plan: Oxygenation improved currently on room air oxygen More calm and cooperative, continue Seroquel and the patient has no significant agitation. The patient is taking Seroquel 100 mg by mouth twice a day and currently is off Precedex without any agitation. I was able to communicate with him appropriately. The patient is lethargic and I am reducing the Seroquel down to 50 mg twice a day Continue Haldol as needed Continue bronchodilators and daptomycin 800 mg every 48 hours Dialysis per nephrology Awaiting labs from today Transferred to medical surgical floor
[2020-12-17] MEDS: METOPROLOL TARTRATE 25 MG TAB PO SCH (08:48)
[2020-12-17] MEDS: CITALOPRAM HYDROBROMIDE 20 MG TAB PO SCH (08:48)
[2020-12-17] MEDS: FUROSEMIDE 10 MG/ML 4 ML VIAL IV SCH (08:48)
[2020-12-17] MEDS: HEPARIN SODIUM,PORCINE 5,000 UNIT/ML 1 ML VIAL SQ SCH ×2 (08:48→20:30)
[2020-12-17 09:40] LABS: Calcium 9.4 mg/dL (8.4-10.2); Potassium 4.2 mmol/L (3.5-5.1)
[2020-12-17 09:43] LABS: Basophils # (A) 0.1 k/uL (0-0.2); Basophils % (A) 0 %; Eosinophils # (A) 2.5 k/uL (0-0.7); HCT 36.4 % (39.0-53.0); HGB 12.2 gm/dL (13.0-17.5); Lymphocytes # (A) 1.4 k/uL (1.0-4.8); Lymphocytes % (A) 8 %; MCH 29.7 pg (25.0-35.0); MCHC 33.4 g/dL (31.0-37.0); MCV 88.9 fL (80.0-100.0); Mean Platelet Volume 7.7; Monocytes # (A) 0.8 k/uL (0-1.0); Monocytes % (A) 4 %; Neutrophils # (A) 12.5 k/uL (1.3-7.7); Neutrophils % (A) 72 %; Platelet Count 179 k/uL (150-450); RDW 14.3 % (11.5-15.5); WBC 17.5 k/uL (3.8-10.6)
[2020-12-17 09:45] LABS: Eosinophils % (A) 15 %
--- NOTE | 2020-12-17 10:24 | P.PN ---
Subjective Patient is seen in follow-up for acute kidney injury, currently hemodialysis dependent. Started on hemodialysis 12/11/2020. Mentation a little better today. Admits to good urine output. Blood pressure stable. No edema. No chest pain or shortness of breath. Vital signs are stable. General: The patient appeared well nourished and normally developed. HEENT: Head exam is unremarkable. Neck is without jugular venous distension. LUNGS: Breath sounds decreased. HEART: Rate and Rhythm are regular. ABDOMEN: Soft, nontender. EXTREMITITES: Trace edema. Objective - Vital Signs Vital signs: Vital Signs Temp 98.2 F 12/17/20 02:30 Pulse 87 12/17/20 02:30 Resp 16 12/17/20 02:30 BP 130/90 12/17/20 02:30 Pulse Ox 92 L 12/17/20 02:30 Intake & Output 12/16/20 12/17/20 12/17/20 18:59 06:59 18:59 Intake Total 1000 400 Output Total 2200 Balance -1200 400 Weight 131.542 kg Intake: Oral 1000 400 Output: Urine 700 Hemodialysis 1500 Other: # Voids 2 3 - Labs CBC & Chem 7: 12/17/20 09:21 12/17/20 07:50 Labs: Abnormal Lab Results - Last 24 Hours (Table) 12/16/20 12/16/20 12/16/20 Range/Units 03:48 12:24 19:14 WBC (3.8-10.6) k/uL RBC (4.30-5.90) m/uL Hgb (13.0-17.5) gm/dL Hct (39.0-53.0) % Neutrophils # (1.3-7.7) k/uL Eosinophils # (0-0.7) k/uL BUN (9-20) mg/dL Creatinine (0.66-1.25) mg/dL Glucose (74-99) mg/dL POC Glucose (mg/dL) 113 H 162 H (75-99) mg/dL Hemoglobin A1c 6.3 H (4.0-6.0) % 12/16/20 12/17/20 12/17/20 Range/Units 20:40 07:05 07:50 WBC (3.8-10.6) k/uL RBC (4.30-5.90) m/uL Hgb (13.0-17.5) gm/dL Hct (39.0-53.0) % Neutrophils # (1.3-7.7) k/uL Eosinophils # (0-0.7) k/uL BUN 54 H (9-20) mg/dL Creatinine 3.33 H (0.66-1.25) mg/dL Glucose 102 H (74-99) mg/dL POC Glucose (mg/dL) 110 H 106 H (75-99) mg/dL Hemoglobin A1c (4.0-6.0) % 12/17/20 Range/Units 09:21 WBC 17.5 H (3.8-10.6) k/uL RBC 4.10 L (4.30-5.90) m/uL Hgb 12.2 L (13.0-17.5) gm/dL Hct 36.4 L (39.0-53.0) % Neutrophils # 12.5 H (1.3-7.7) k/uL Eosinophils # 2.5 H (0-0.7) k/uL BUN (9-20) mg/dL Creatinine (0.66-1.25) mg/dL Glucose (74-99) mg/dL POC Glucose (mg/dL) (75-99) mg/dL Hemoglobin A1c (4.0-6.0) % Assessment and Plan Plan: Assessment: 1. Acute kidney injury secondary to ATN secondary to vancomycin toxicity and further worsened with the use of nonsteroidals, Shayne inhibitors as well as hypotension. Started on hemodialysis December 11. Baseline creatinine near 1. Nonoliguric. 2. Altered mental status with component of uremia. Improved since admission. 3. Volume overload. Improving with ultrafiltration and diuresis. 4. 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 5. Hypokalemia from diuresis. Improved post replacement. Plan: Maintain IV Lasix. Hold hemodialysis today. Continue to monitor for renal recovery. Check phosphorus level.
[2020-12-17] MEDS: QUEtiapine 50 MG TAB PO SCH ×2 (11:33→20:30)
[2020-12-17 11:36] LABS: Glucose,Whole Blood 90 mg/dL (75-99)
[2020-12-17 19:10] LABS: Glucose,Whole Blood 146 mg/dL (75-99)
[2020-12-17 20:28] LABS: Glucose,Whole Blood 146 mg/dL (75-99)
--- NOTE | 2020-12-17 22:56 | PN ---
PROGRESS NOTE DATE OF SERVICE: 12/17/2020 REASON FOR FOLLOWUP: 1. Lumbar paraspinal abscess. 2. Drug rash. INTERVAL HISTORY: The patient is currently afebrile. The patient is breathing comfortably. The patient denies having any chest pain, shortness of breath or cough. No nausea, no vomiting, no abdominal pain or diarrhea. PHYSICAL EXAMINATION: Blood pressure 122/100 with a pulse of 89, temperature 98.3. He is 93% on room air. General description is a middle-aged male lying in bed in no distress. RESPIRATORY SYSTEM: Unlabored breathing. Clear to auscultation anteriorly. HEART: S1, S2. Regular rate and rhythm. ABDOMEN: Soft. No tenderness. Lumbar incision is currently healed. There is no swelling, no redness, no drainage. LABS: Hemoglobin is 12.8, white count 17.5. BUN of 54, creatinine 3.33. DIAGNOSTIC IMPRESSION AND PLAN: Patient with lumbar paraspinal abscess in this patient with culture positive for Staphylococcus epidermidis, oxacillin-resistant. Did have admission to hospital with vancomycin-related drug rash and toxicity. Kidney function is improving. Patient is covered with daptomycin; to be continued and continue supportive care. MMODL / IJN: [id number] /
[2020-12-18] MEDS: oxyCODONE-APAP 10-325MG 1 EACH TAB PO PRN ×4 (00:45→19:50)
--- NOTE | 2020-12-18 01:05 | P.PN ---
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 Patient states that when she had GI bleed she had similar symptoms and presents to ER for evaluation. Patient states that she was having some dark-colored stools during the last 2 days which she attributes to her food intake. Patient also complaining of shortness of breath with exertion. No chest pain. On and off leg swelling currently denied any leg swelling. No fever no chills. No cough or sputum production. No recent illnesses or infections. No recent travel. Chest x-ray showed no evidence of acute pulmonary disease EKG showed normal sinus rhythm with left atrial enlargement. Patient is has history of heart murmur for which patient was seen by cardiology in the past. Laboratory showed hemoglobin level was 6.5 on admission and FOBT positive. BUN 14 creatinine 0.81 potassium 4.5 sodium 136 and blood sugar is 214 and magnesium 1.1 and calcium 10.4 coronavirus PCR is not detected. 12/07/2020 Patient is currently sitting in a chair. Awake alert oriented x3. Patient was started on capsule endoscopy study. Denied any complaints abdominal pain. Hemoglobin is at 7.0 today. No headache or dizziness or lightheadedness. GI is following. Continue insulin sliding scale and blood sugar control. 12/08/2020 Patient is currently resting in the bed comfortably. Denied any complaints of nausea vomiting or abdominal pain or diarrhea. Patient did have brown bowel movement today. Hemoglobin level is 7.1 today. Report pending for capsule endoscopy. GI is on board. Patient was started on oral diet and adjust insulin dose. subjective 12/09/20 this is a pleasant 45 years old male who presents because of fever and generalized macular papular rash , thought to be secondary to vancomycin toxicity , patient was on vancomycin for lumbar abscess , he is a status post laminectomy secondary to staph epidermidis resistant to oxacillin. Also with acute kidney injury and creatinine is 7.8 today with nephrology on the case and possible hemodialysis patient today he has some sleep breathing difficulty , he states that he has s leep apnea but not using BiPAP/CPAP at home. he denies previous diagnosis of COPD however his cutting back his smoking from 1.5 down to 0.5 pack per day , however patient is already on Solu-Medrol 60 mg 4 times a day for his rash He is a little short of breath today. No chest pain or coughing. No abdominal pain. He thinks his rash is the same but it itching improved , although is not resolved completely. Also he is on daptomycin and gentle hydration with normal saline at 50 mL per hour ID team and tool dresser teams the case 12/10/2020 Patient still with some respiratory distress, he is on BiPAP overnight. This will help decrease air intraorally with scattered wheezing. His still on Solu- Medrol His extremity and trunk rash is better. He is for Right inguinal catheter was placed for hemodialysis. Patient most likely is going for hemodialysis per nephrology team. She denies any other new complaints, no chest pain, he denies abdominal pain, no nausea vomiting or diarrhea. No fever Orthopedic team input is appreciated and they recommended CT of the lumbar spine 12/11/2020 Patient is still short of breath especially with exertion, still have expiratory wheezing with prolonged expiration and continue on Solu-Medrol 60 mg and daptomycin for that His rash is significantly improving and fading away with some scale and he is hemodynamically stable however he needs 6 L of oxygen to keep saturation at 94% WBC is back to normal today at 8.9. remains on daptomycin for lumbar abscess, CAT scan of the lumbar spine ordered by orthopedic team is pending. ESR IV fluid was stopped and now he is currently receiving Lasix 40 mg daily. patient received hemodialysis yesterday and today. 12/12/2020 Today patient was more confused and he still the Neck and dyspneic with extensive expiratory wheezing. His saturation was low 90s, however his oxygen requirement increased to 15 L via nonrebreather. With ABG showing pH of 7.49 slightly elevated and low pO2 and 48 and pCO2 of 28. Chest x-ray: Showing diffuse bilateral infiltrates suspicious for diffuse pneumonia which is is unl ikely and most likely patient has fluid overload. Labs showing normal WBC at 8.1K, hemoglobin 12.3. BMP is stable with normal electrolytes. Creatinine is expected to be high 7.3. Sugar control 118-186. Liver enzymes not elevated. Patient remains on daptomycin, Solu-Medrol 60 mg and Lasix 40 mg IV daily. Most likely patient will go to the intensive care unit for pulmonary team recommendations 12/13/2020 Patient both to the ICU yesterday. Patient is awake, he looks a little upset, he keeps his oxygen off and asked him to put it back but he refuses after I explained the risk for him. Sitter At bedside He denies any pain. He still feels short of breath with expiratory wheezing. Yesterday he was on 15 L oxygen via nasal cannula which was the same but during the evening his requirement went down to 10 L via nasal cannula. Labs and glucose looks stable. Continue with Lasix 80 mg IV per tool dresser. Also he is on Solu-Medrol 40 mg IV twice daily and daptomycin. patient to continue with hemodialysis today and tomorrow per tool dresser 12/14/2020 Patient ICU still with agitation at time eventually he was sleeping this morning but it was very hard for staff to come down throughout all night. Patient still with dyspnea and expiratory wheezing. And still undergoing hemodialysis today. Because of these his steroids also the Medrol 40 mg once stopped today and his Seroquel was increased to 100 mg twice a day Other than that he is hemodynamically stable.He is saturating 92% on 2 L oxygen via nasal cannula Chest x-ray showing persistent bilateral consolidation or infiltrate, suspicious for pulmonary congestion He remains on daptomycin Next hemodialysis is on Wednesday, while tomorrow Wednesday he will go without treatment 12/15/2020 Patient is seen today in the ICU less agitated and confused however he was standing naked in the ICU asked to go home today. I explained to the patient is not medical ready to go home. Especially he is still on 60 L of oxygen via nasal cannula and a still getting hemodialysis. However it was noticed today is less dyspneic and is expiratory wheezing is significantly improved He is hemodynamically stable. No hemodialysis today and will be resumed tomorrow per nephrology team recommendation Slight leukocytosis 11.4 K probably from steroid effect. I did glucose is controlled. Continue with daptomycin 12/16/2020 Patient awake and breathing better with less wheezing. Still undergoing hemodialysis His oxygen requirements Down to 4 L to Achieve 94% on Room Air. Sugar Controlled and Lateral Leukocytosis at 15 K. Ferritin Is 4.2. Electrolytes Are Stable. Liver Enzymes Not Elevated Patient Is Improving Gradually and Out Of Bed to Chair Is Recommended. 12/17/2020 Patient still improved gradually his breathing easier and less wheezing Agitated over the last today now is much more calm. Severe coronary lower to 50 mg twice daily Continue with hemodialysis per nephrology team Review of systems CONSTITUTIONAL: No fever, no malaise, no fatigue. HEENT: No recent visual problems or hearing problems. Denied any sore throat. CARDIOVASCULAR: No orthopnea, PND, no palpitations, no syncope. -PULMONARY: Positive for shortness of breath, no cough, no hemoptysis. GASTROINTESTINAL: No diarrhea, no nausea, no vomiting, no abdominal pain. Normoactive bowel sounds. NEUROLOGICAL: No headaches, no weakness, no numbness.\ Active Medications Generic Name Dose Route Start Last Admin Trade Name Freq PRN Reason Stop Dose Admin Acetaminophen 650 mg 12/07/20 16:47 12/08/20 22:18 Acetaminophen Tab 325 Mg Tab PO 650 mg Q6HR PRN Administration Mild Pain or Fever > 100.5 Albuterol/Ipratropium 3 ml 12/09/20 16:00 12/16/20 19:44 Ipratropium-Albuterol 3 Ml Neb INHALATION Not Given RT-QID ZECHARIAH Albuterol/Ipratropium 3 ml 12/09/20 13:03 Ipratropium-Albuterol 3 Ml Neb INHALATION RT-Q2H PRN Shortness Of Breath Or Wheezing Bisacodyl 5 mg 12/07/20 19:33 Bisacodyl 5 Mg Tablet.Dr PO DAILY PRN Constipation Budesonide 1 mg 12/09/20 20:00 12/16/20 19:44 Budesonide 1 Mg/2 Ml Nebu INHALATION Not Given RT-BID ZECHARIAH Citalopram Hydrobromide 20 mg 12/08/20 09:00 12/16/20 09:05 Citalopram Hydrobromide 20 Mg Tab PO 20 mg DAILY ZECHARIAH Administration Formoterol Fumarate 20 mcg 12/09/20 20:00 12/16/20 19:44 Formoterol Fumarate 20 Mcg/2 Ml Nebu INHALATION Not Given RT-BID ZECHARIAH Furosemide 80 mg 12/13/20 09:00 12/16/20 09:05 Furosemide 10 Mg/Ml 4 Ml Vial IV 80 mg DAILY ZECHARIAH Administration Haloperidol Lactate 2 mg 12/12/20 13:54 12/15/20 00:17 Haloperidol Lactate 5 Mg/Ml 1 Ml Vial IVP 2 mg Q4HR PRN Administration Agitation or Acute Psychosis Heparin Sodium (Porcine) 5,000 unit 12/09/20 10:45 12/16/20 21:23 Heparin Sodium,Porcine 5,000 Unit/Ml 1 Ml Vial SQ 5,000 unit Q12HR ZECHARIAH Administration Daptomycin 800 mg/ Sodium 50 mls @ 100 mls/hr 12/09/20 20:00 12/15/20 21:35 Chloride IVPB 100 mls/hr Q48H ZECHARIAH Administration Protocol Insulin Aspart 0 unit 12/10/20 12:30 12/16/20 20:45 Insulin Aspart (Novolog) 100 Unit/Ml Vial SQ Not Given ACHS [facility] Protocol Lidocaine 1 patch 12/07/20 19:33 Lidocaine 5% Patch TOPICAL DAILY PRN Pain Metoprolol Tartrate 25 mg 12/08/20 09:00 12/16/20 09:05 Metoprolol Tartrate 25 Mg Tab PO 25 mg DAILY ZECHARIAH Administration Naloxone HCl 0.2 mg 12/07/20 16:47 Naloxone 0.4 Mg/Ml 1 Ml Vial IV Q2M PRN Opioid Reversal Oxycodone/Acetaminophen 1 each 12/07/20 16:34 12/16/20 21:23 Oxycodone-Apap 10-325mg 1 Each Tab PO 1 each Q4H PRN Administration Pain Polyethylene Glycol 17 gm 12/07/20 19:33 Polyethylene Glycol 3350 17 Gm Powd.Pack PO DAILY PRN Constipation Quetiapine Fumarate 100 mg 12/14/20 09:00 12/16/20 21:23 Quetiapine 100 Mg Tab PO 100 mg BID ZECHARIAH Administration Senna/Docusate Sodium 1 each 12/07/20 19:33 Sennosides-Docusate Sodium 1 Each Tab PO BID PRN Constipation Objective - Vital Signs Vital signs: Vital Signs Temp 97.6 F 12/17/20 08:00 Pulse 89 12/17/20 08:00 Resp 12 12/17/20 08:00 BP 164/103 12/17/20 08:00 Pulse Ox 91 L 12/17/20 08:00 Intake & Output 12/16/20 12/17/20 12/17/20 18:59 06:59 18:59 Intake Total 1000 400 Output Total 2200 Balance -1200 400 Weight 131.542 kg Intake: Oral 1000 400 Output: Urine 700 Hemodialysis 1500 Other: # Voids 2 3 - Exam -GENERAL: The patient is alert and oriented x3, not in any acute distress. Obese HEENT: Pupils are round and equally reacting to light. EOMI. No scleral icterus. No conjunctival pallor. Normocephalic, atraumatic. No pharyngeal erythema. No thyromegaly. CARDIOVASCULAR: S1 and S2 present. No murmurs, rubs, or gallops. PULMONARY: Chest is clear to auscultation, no wheezing or crackles. ABDOMEN: Soft, nontender, nondistended, normoactive bowel sounds. No palpable organomegaly. -MUSCULOSKELETAL: No joint swelling or deformity. Midline lower back scar, healed with no drainage or open wound EXTREMITIES: No cyanosis, clubbing, or pedal edema. NEUROLOGICAL: Gross neurological examination did not reveal any focal deficits. -SKIN: no petechiae. He has extensive rash, maculopapular previous more confluent on the chest, back and extending into most of the abdomen as well as extremities. No mouth ulcer -Genitalia: Patient refused - Labs CBC & Chem 7: 12/17/20 09:21 12/17/20 07:50 Labs: Abnormal Lab Results - Last 24 Hours (Table) 12/16/20 12/16/20 12/17/20 Range/Units 19:14 20:40 07:05 WBC (3.8-10.6) k/uL RBC (4.30-5.90) m/uL Hgb (13.0-17.5) gm/dL Hct (39.0-53.0) % Neutrophils # (1.3-7.7) k/uL Eosinophils # (0-0.7) k/uL BUN (9-20) mg/dL Creatinine (0.66-1.25) mg/dL Glucose (74-99) mg/dL POC Glucose (mg/dL) 162 H 110 H 106 H (75-99) mg/dL Phosphorus (2.5-4.5) mg/dL 12/17/20 12/17/20 12/17/20 Range/Units 07:50 07:50 09:21 WBC 17.5 H (3.8-10.6) k/uL RBC 4.10 L (4.30-5.90) m/uL Hgb 12.2 L (13.0-17.5) gm/dL Hct 36.4 L (39.0-53.0) % Neutrophils # 12.5 H (1.3-7.7) k/uL Eosinophils # 2.5 H (0-0.7) k/uL BUN 54 H (9-20) mg/dL Creatinine 3.33 H (0.66-1.25) mg/dL Glucose 102 H (74-99) mg/dL POC Glucose (mg/dL) (75-99) mg/dL Phosphorus 5.4 H (2.5-4.5) mg/dL Assessment and Plan Assessment: Nonoliguric Acute kidney injury due to ATN secondary to hypotension and toxicity to vancomycin.is getting hemodialysis Ongoing and recent lumbar abscess status post laminectomy secondary to staph epidermidis resistant to oxacillin Acute COPD exacerbation and possible obstructive sleep apnea, continue with CPAP/BiPAP and steroids Echo type of sick respiratory failure secondary to above Maculopapular rash, improving Lactic acidosis, resolved Mild Hypovolemic hyponatremia Recent L4- S1 fusion surgery and revision and incision and drainage with antibiotic spacer. Hypertension currently not hypertensive Morbid obesity with BMI 41.6 Possible history of obstructive sleep apnea as per patient, not on CPAP and BiPAP Plan: This is a pleasant 45 years old male who presents with vancomycin toxicity, lumbar abscess, JENNIFER needing hemodialysis. Continue with daptomycin as per ID team recommendation. Discontinue Solu-Medrol for agitation. DC IV fluids.Continue with hemodialysis as per nephrology team follow-up with national secretary in addition. Patient will be monitored in intensive care unit Continued with pain management and follow up closely. Labs and medication were reviewed.. Continue same treatment. Continue with symptomatic treatment. Resume home medication. Monitor lytes and vitals. DVT and GI prophylaxis. Further recommendations as per clinical course of the patient DVT prophylaxis: Subcutaneous heparin GI Prophylaxis: Pepcid PT/OT: Home health care versus inpatient rehab Prognosis is guarded
[2020-12-18 07:27] LABS: Basophils # (A) 0.1 k/uL (0-0.2); Basophils % (A) 0 %; Eosinophils # (A) 2.9 k/uL (0-0.7); HCT 34.8 % (39.0-53.0); HGB 11.7 gm/dL (13.0-17.5); Lymphocytes # (A) 1.5 k/uL (1.0-4.8); Lymphocytes % (A) 9 %; MCH 29.5 pg (25.0-35.0); MCHC 33.6 g/dL (31.0-37.0); MCV 88.1 fL (80.0-100.0); Mean Platelet Volume 8.1; Monocytes # (A) 0.9 k/uL (0-1.0); Monocytes % (A) 5 %; Neutrophils # (A) 10.9 k/uL (1.3-7.7); Neutrophils % (A) 67 %; Platelet Count 200 k/uL (150-450); RBC 3.95 m/uL (4.30-5.90); RDW 14.4 % (11.5-15.5); WBC 16.4 k/uL (3.8-10.6)
[2020-12-18 07:34] LABS: Eosinophils % (A) 18 %
[2020-12-18 07:35] LABS: Glucose,Whole Blood 88 mg/dL (75-99)
[2020-12-18] MEDS: INSULIN ASPART (NovoLOG) 100 UNIT/ML VIAL SQ SCH ×4 (07:44→20:54)
[2020-12-18 07:48] LABS: Calcium 9.3 mg/dL (8.4-10.2); Potassium 3.6 mmol/L (3.5-5.1)
--- NOTE | 2020-12-18 08:22 | P.PN ---
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 He seems to get better each day. He still slightly confused this morning was able to answer all questions states that he wants to leave. He denies any back pain currently. States she has been up and about. Denies any fevers chills shortness of breath or chest pain at this time. Objective - Vital Signs Vital signs: Vital Signs Temp 97.9 F 12/18/20 07:52 Pulse 89 12/18/20 07:52 Resp 16 12/18/20 07:52 BP 116/81 12/18/20 07:52 Pulse Ox 95 12/18/20 07:52 Intake & Output 12/17/20 12/18/20 12/18/20 18:59 06:59 18:59 Intake Total 400 Output Total 550 Balance -150 Intake: Oral 400 Output: Urine 550 - Exam PHYSICAL EXAMINATION: Vitals: Stable at this time General: Awake, alert, appropriate for age, in no acute distress. HEENT: No unusual neck masses around region of lateral neck triangle, thyroid, supraclavicular groove. Extremities: Skin warm and dry without no acute lesions, coloration, temperature, skin intact, no tenderness or erythema. Integument: Hairy patches: Absent Dorsal skin dimples: Absent Cafe au la[employer] spots: Absent Surgical incisions: Incision is well-healed clean dry and intact no erythema or ecchymosis or edema no dehiscence. In place just for protection as patient is lying on back a lot Palpation: Please see Pain drawing on Intake sheet for further detail. (Tenderness = T, Nontender = NT, Swelling = S, Ecchymosis = E) Findings on Midline and paraspinal palpation and percussion: Cervical: NT Thoracic: NT Lumbar: NT Sacral: NT Special findings: None POSTURAL and MUSCULO-SKELETAL EVALUATION: Neck ROM: Unrestricted in six directions Lumbar ROM: Unrestricted in six directions Shoulder ROM: Symmetric in abduction, ER/IR Hip ROM: Symmetric in abduction, adduction, ER/IR Knee ROM: Symmetric and intact in Flexion / extension Hands: Normal appearing structure L and R Feet: Normal appearing structure L and R VASCULAR STATUS : Wrist Pulses: 2/4 bilateral radial and ulnar Pedal Pulses: 2/4 bilateral DP and PT Color: Normal Edema: None NEUROLOGIC EXAMINATION: Mental Status: Awake and alert, fully oriented, with normal attention, concentration and memory, and fluent, appropriate speech. Cranial Nerves: I: Olfactory not tested. II: Visual acuity normal, no visual field deficit noted with confrontation. III,IV: Normal pupillary reflexes & intact extraocular movements without nystagmus. V,: Intact symmetrical facial sensation. VII: Intact symmetrical facial motor movement VIII: Hearing intact. IX,X: Intact gag, swallow, & normal voice. XI: Sternocleidomastoid, trapezius function intact. XII: Tongue midline with normal movements. Special Tests: L'hermitte's Sign: Absent Spurling'Sign: Absent Bilateral Cubital percussion test: Absent Bilateral Karolina-Tinel sign - Carpal region: Absent Bilateral Straight Leg Raising: Absent Bilateral Motor Exam (0-5/5, N/T) STRENGTH UPPER EXTREMITY Shoulder Abd (Not part of DONNY Motor score): RIGHT 5 LEFT 5 Elbow Flexors: RIGHT 5 LEFT 5 Elbow Extensor: RIGHT 5 LEFT 5 Wrrist Dorsiflexors: RIGHT 5 LEFT 5 Finger Abductor: RIGHT 5 LEFT 5 Director Educational Radio: RIGHT 5 LEFT 5 LOWER EXTREMITY Hip Flexor (Not part of DONNY Motor Score): RIGHT 5 LEFT 5 Knee Flexor: RIGHT 5 LEFT 5 Knee Extensor: RIGHT 5 LEFT 5 Ankle Dorsiflexion: RIGHT 5 LEFT 5 Ankle Plantarflexion: RIGHT 5 LEFT 5 EHL: RIGHT 5 LEFT 5 FHL: RIGHT 5 LEFT 5 DONNY Motor Score: RIGHT 50/50 LEFT 50/50 REFLEXES Biecp: RIGHT 2 LEFT 2 Tricep: RIGHT 2 LEFT 2 Brachioradialis: RIGHT 2 LEFT 2 Patellar: RIGHT 2 LEFT 2 Achilles: RIGHT 2 LEFT 2 Pathological Reflexes Zavala's: RIGHT Absent LEFT Absent Babinski: RIGHT Absent LEFT Absent Clonus: RIGHT None LEFT None SENSORY Joint Position: Intact bilaterally Vibration Intact bilaterally Pain and LT sense Intact C5-T1 and L2-S1 Dermatomal deficit None - Labs CBC & Chem 7: 12/18/20 06:43 12/18/20 06:43 Labs: Abnormal Lab Results - Last 24 Hours (Table) 12/17/20 12/17/20 12/17/20 Range/Units 07:50 07:50 09:21 WBC 17.5 H (3.8-10.6) k/uL RBC 4.10 L (4.30-5.90) m/uL Hgb 12.2 L (13.0-17.5) gm/dL Hct 36.4 L (39.0-53.0) % Neutrophils # 12.5 H (1.3-7.7) k/uL Eosinophils # 2.5 H (0-0.7) k/uL BUN 54 H (9-20) mg/dL Creatinine 3.33 H (0.66-1.25) mg/dL Glucose 102 H (74-99) mg/dL POC Glucose (mg/dL) (75-99) mg/dL Phosphorus 5.4 H (2.5-4.5) mg/dL 12/17/20 12/17/20 12/18/20 Range/Units 19:08 20:26 06:43 WBC 16.4 H (3.8-10.6) k/uL RBC 3.95 L (4.30-5.90) m/uL Hgb 11.7 L (13.0-17.5) gm/dL Hct 34.8 L (39.0-53.0) % Neutrophils # 10.9 H (1.3-7.7) k/uL Eosinophils # 2.9 H (0-0.7) k/uL BUN (9-20) mg/dL Creatinine (0.66-1.25) mg/dL Glucose (74-99) mg/dL POC Glucose (mg/dL) 146 H 146 H (75-99) mg/dL Phosphorus (2.5-4.5) mg/dL 12/18/20 Range/Units 06:43 WBC (3.8-10.6) k/uL RBC (4.30-5.90) m/uL Hgb (13.0-17.5) gm/dL Hct (39.0-53.0) % Neutrophils # (1.3-7.7) k/uL Eosinophils # (0-0.7) k/uL BUN 58 H (9-20) mg/dL Creatinine 3.71 H (0.66-1.25) mg/dL Glucose (74-99) mg/dL POC Glucose (mg/dL) (75-99) mg/dL Phosphorus (2.5-4.5) mg/dL Assessment and Plan Assessment: Status post evacuation paraspinal and epidural phlegmon with L4 to S1 osteo- discitis status post L4 to S1 posterior stabilized fusion with antibiotic cement spacer placement and antibiotic bead placement Vancomycin toxicity, 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 Deferred to medicine and nephrology ID for current management -Pain control: Adequate at this time -Aggressive ambulation protocol. OOB with all meals. OOB or in chair 4-5x daily. -PT/OT -TEDs, SCDs, mechanical ppx. OK for heparin today. Early ambulation is best. -GI ppx. -No further imaging needed at this time -Trend labs. -No surgical intervention at this time -Dispose: Pending
[2020-12-18] MEDS: CITALOPRAM HYDROBROMIDE 20 MG TAB PO SCH (08:37)
[2020-12-18] MEDS: METOPROLOL TARTRATE 25 MG TAB PO SCH (08:37)
[2020-12-18] MEDS: FUROSEMIDE 10 MG/ML 4 ML VIAL IV SCH (08:38)
[2020-12-18] MEDS: QUEtiapine 50 MG TAB PO SCH ×2 (08:38→21:00)
[2020-12-18] MEDS: HEPARIN SODIUM,PORCINE 5,000 UNIT/ML 1 ML VIAL SQ SCH ×2 (08:38→21:00)
--- NOTE | 2020-12-18 09:56 | P.PN ---
Subjective Progress Note Date: 12/18/20 Principal diagnosis: Acute hypoxic respiratory failure, obstructive sleep apnea, fluid volume overload, acute kidney injury This is a 45-year-old male who presented to the emergency department on September 06 complaining of fever, and a rash. He is 15 days postop revision of L4-L5 with L4 through S1 fusion, and placement of antibiotic spacer. We actually know this patient because he came back from the operating room initially to the intensive care unit on the ventilator. He was quite rambunctious, and the patient was eventually extubated without a formal spontaneous breathing trial. The patient was apparently started on vancomycin 3 times a day for osteomyelitis. The patient presented to the emergency room on the with 2 days of fever and rash. The rash looks like a red man syndrome rash. It was extending in the back of his neck and extending down his whole back and sides of his chest. The surgery was done by Dr. Jama, and he recently saw him in the office. We were called in today because there was an "A" team called on the patient. The patient was apparently manifesting some respiratory distress. One of the charge nurses from the ICU, thought the patient was just a deep sleeper and probably suffering from some sleep apnea syndrome. The patient apparently does have a history of sleep apnea, but does not wear his CPAP/BiPAP device. She did not feel like the patient needed to be transferred down to the intensive care unit. Anyway, and we saw the patient, the patient was a bit sleepy, we recommended Solu-Medrol, Perforomist, and Pulmicort updrafts, and DuoNeb 4 times a day and when necessary. In addition, a blood gas was ordered but I didn't think it was necessary. Finally, we recommended BiPAP at 12/5 and 50%. We encouraged the patient to wear it until he started doing better. We'll be went to go see him, his saturations were in the low 90s, and at that time, he was on 6 L nasal cannula. He did arouse and respond appropriately. On 12/10/2020 patient seen in follow-up. He remains on BiPAP support, tolerating it well, resting comfortably in bed, BiPAP pressures of 12 and 5 and 50%, his lung sounds are diminished, he is a urine output has been diminished, his renal function continues to worsen, today's BUN is up to 73 and creatinine is 9.8 with potassium of 5.7, temporary emergent hemodialysis catheter was placed in the femoral area, and patient will have his hemodialysis treatment today, the rest of his blood work has been reviewed, showing white blood cell count of 15, hemoglobin is 11. His urinalysis showed possibility of a urinary tract infection, his blood and urine cultures have been negative, gastric chest x-ray showed bilateral patchy airspace disease, low lung volumes. Patient remains on daptomycin, and treatments, IV steroids. He is on IV Lasix 40 mg daily. Has not had significant diuresis On 12/11/2020 patient seen in follow-up, he is currently off BiPAP support, he is on 6 L of oxygen, he had hemodialysis treatment yesterday with removal of 1 L of fluid, and today he is having another session of hemodialysis with a goal of removing 2 L, he is still be drowsy, but more responsive to verbal stimulation, he has had no fever or chills, no recent chest x-ray. Remains on IV diuretics with Lasix 40 mg daily, IV steroids and breathing treatments. Continues on labs reviewed, slight improvement in renal profile, with B1 is 65 and creatinine of 8.1, potassium is 4.7. She continues on daptomycin, vancomycin has been discontinued, he is on IV steroids, and Benadryl for persistent rash possibly related to vancomycin. On 12/12/2020 patient is seen in follow-up on medical surgical floor, yesterday he had hemodialysis done with removal of 2.5 L of fluid, and today is having another hemodialysis session with the goal of removing 2.5 L, he is more awake today, he is currently on 6 L, he is agitated at times, and removes his oxygen. At times confused, at times not cooperative. Chest x-ray today shows diffuse interstitial pattern. Patient remains on daptomycin, but has significant rash, which looks very dry flaky on today's exam. He continues on IV Solu-Medrol every 6, Benadryl, he is given some pain medications. Still seems generally swollen, more gas was completed following hemodialysis recurrent showing pO2 of only 40%, pCO2 of 37, pH of 7.49 and this was done and FiO2 of 44% and subsequently his FiO2 was increased up to 100% nonrebreather mask. In view of his cardiorespiratory status, encephalopathy, confusion and agitation, moving his oxygen mask off we decided to move into the intensive care unit for closer monitoring. ProBNP was ordered and came back at 9570, pro-calcitonin was sent and is pending at this time, CRP is 85.3. His labs before hemodialysis showed creatinine is 7.35, and BUN of 50, and electrolytes are within normal limits. The patient is seen today 12/13/2020 in follow-up in the intensive care unit. He is transferred here yesterday with increasing restlessness increasing oxygen needs and altered mental status. He is currently on 15 L high flow nasal cannula. No current IV fluids. He did receive hemodialysis yesterday with 2.5 L removed. Plan is for repeat hemodialysis today. Chest x-ray continues to show patchy bilateral densities within the lungs. Stable compared to previous. Right-sided PICC line in place. Urine culture revealed no growth. Blood cultures revealed no growth. White count 7.5. Hemoglobin 9.6. Sodium 135. Potassium 3.9. Creatinine 4.88. He remains on DuoNeb inhalations, Pulmicort and Perforomist inhalations, IV Solu-Medrol. Antibiotics in the form of daptomycin. The patient is seen today 12/14/2020 in follow-up in the intensive care unit. He is currently resting comfortably in bed. He is quite restless and agitated throughout the night. Security assistance was required. He has received Haldol, Seroquel, on Precedex at 0.7 mcg/kg per hour. He is requiring 10 L high flow nasal cannula to maintain O2 saturations in the 90s. Chest x-ray reveals faint bilateral multifocal infiltrates. No significant change. Urine culture revealed no growth. Blood culture revealed no growth. White count 9.2. Hemoglobin 10.4. Sodium 136. Potassium 4.5. Creatinine 3.92. He remains on d aptomycin. IV diuretics. Bronchodilators and IV Solu-Medrol. The patient is seen today 12/15/2020 and follow-up in the intensive care unit. He is currently sitting up in a recliner at the bedside. More awake and alert. More calm and cooperative today. Maintaining O2 saturations in the 90s on 6 L/m per nasal cannula. No current IV fluids. He did receive hemodialysis yesterday with 2 L removed. His urine output has picked up as well. Blood and urine cultures reveal no growth. White count 11.4. Hemoglobin 11.0. Platelet count 206. Sodium 136. Potassium 3.6. Creatinine 3.58. Glucose 107. He remains on daptomycin, bronchodilators, IV diuretics. He is on Seroquel 100 mg twice a day. Off Precedex. Last Haldol required at midnight. On 12/16/2020 the patient is being seen in follow-up in the intensive care unit. The patient has recovered from his rash. Note that the patient toxicity to vancomycin. The patient developed an acute kidney injury related to vancomycin toxicity and the patient developed also Curry syndrome. The renal function is still in.. Creatinine from today 4.26 with a BMI of 67. The patient produced 1 L of urine output overnight. As such, the patient is non-oliguric at this point in time. His last session of hemodialysis was on 12/14/2020 with a total of 2 L of fluid was removed. No dialysis was done yesterday. The blood cultures are negative. The patient has a white cell count of 15 with a hemoglobin of 11.9. The patient has a single lumen PICC in the right upper extremity and the patient has a right femoral hemodialysis catheter in place. His cardiac rhythm is sinus. He does have some sinus bradycardia with sleeping knowing that the patient has obvious clinical features of obstructive sleep apnea. He is currently on 4 L of oxygen by nasal cannula with a pulse of 75%. He is tolerating his diet. He had a loose bowel movement on 12/15/2020. The patient has ongoing osteomyelitis on antibiotics. Spine surgeries also on the case. He is currently off the BiPAP. The chest x-ray still showing a component of mild pulmonary vascular congestion. Remains on DuoNeb nebulized treatments around the clock. Remains on Pulmicort and Perforomist nebulized treatments. The patient shows no significant agitation. The patient is on Seroquel 100 mg by mouth twice a day and Haldol on an as-needed basis. Precedex has been disc ontinued. On 12/17/2020, I'm seeing this patient for a follow-up. The patient is resting comfortably on room air oxygen. No chest x-ray was done today. Noted respiratory distress. She remains on IV antibiotics with daptomycin and vancomycin has been discontinued. He is receiving 800 mg every 48 hours. The repeat cultures were negative. Meanwhile, the patient has no rash. The patient has developed an acute kidney injury, nonoliguric related to vancomycin toxicity/ATN and the patient underwent another session of hemodialysis yesterday for a creatinine of 4.26. Follow-up labs from today are still pending. Meanwhile, his produced adequate urine output in the order of 1.700 mL over the past 24 hours. As such, the patient is nonoliguric. The patient has a single lumen PICC in his right upper extremity. He also has a diagnosis And his femoral vein. His cardiac rhythm is sinus. He has ongoing issues with back pain. Surgical wound site is dry clean and intact. The patient is on a medical surgical floor overflow currently in the intensive care unit. He wanted to go home yesterday, however this is not possible especially with this ongoing renal failure. His Seroquel is currently at 100 mg twice a day. Is lethargic. No agitation. No confusion. No delirium. He is somnolent under the effect of Seroquel. No agitation. The patient is seen today 12/18/2020 in follow-up on the regular medical floor. He is up ambulating in the room. Awake and alert in no acute distress. Denies any worsening shortness of breath, cough or congestion. Maintaining good O2 saturations in the 90s on room air. He's been afebrile. Hemodynamically stable. Blood and urine cultures reveal no growth. White count 16.4. Hemoglobin 11.7. Sodium 138. Potassium 3.6. Creatinine 3.71, up from 3.33 yesterday. No hemodialysis done yesterday. Nephrology is following. Considering possible HD catheter versus stopping dialysis depending 9 creatinine tomorrow. He is making urine. Continued on IV diuretics. He has remained calm and cooperative with staff. Continued on Seroquel. Remains on daptomycin. Dressing to the back is 9 intact. Heparin for DVT prophylaxis. Objective - Vital Signs Vital signs: Vital Signs Temp 97.9 F 12/18/20 07:52 Pulse 89 12/18/20 07:52 Resp 16 12/18/20 09:15 BP 116/81 12/18/20 07:52 Pulse Ox 95 12/18/20 07:52 Intake & Output 03/02/21 03/03/21 03/03/21 18:59 06:59 18:59 Intake Total 400 Output Total 550 Balance -150 Intake: Oral 400 Output: Urine 550 - Exam GENERAL EXAM: Awake, alert, more cooperative, 45 -year-old male patient, currently on room air HEAD: Normocephalic/atraumatic. EYES: Normal reaction of pupils, equal size. Conjunctiva pink, sclera white. NOSE: Clear with pink turbinates. THROAT: No erythema or exudates. NECK: No masses, no JVD, no thyroid enlargement, no adenopathy. CHEST: No chest wall deformity. Symmetrical expansion. LUNGS: Equal air entry with crackles in the bilateral posterior bases CVS: Regular rate and rhythm, normal S1 and S2, no gallops, no murmurs, no rubs ABDOMEN: Soft, nontender. No hepatosplenomegaly, normal bowel sounds, no gua rding or rigidity. EXTREMITIES: No clubbing, no edema, no cyanosis, 2+ pulses and upper and lower extremities. MUSCULOSKELETAL: Muscle strength and tone normal. SPINE: Dressing to previous lumbar surgery dry and intact. No scoliosis or deformity SKIN: Patient has improving red confluent rash all over patient's face, shoulders, neck, abdomen, back and upper thighs CENTRAL NERVOUS SYSTEM: More calm and cooperative. No focal deficits, tone is normal in all 4 extremities. - Labs CBC & Chem 7: 12/18/20 06:43 12/18/20 06:43 Labs: Abnormal Lab Results - Last 24 Hours (Table) 12/17/20 12/17/20 12/17/20 Range/Units 07:50 19:08 20:26 WBC (3.8-10.6) k/uL RBC (4.30-5.90) m/uL Hgb (13.0-17.5) gm/dL Hct (39.0-53.0) % Neutrophils # (1.3-7.7) k/uL Eosinophils # (0-0.7) k/uL BUN (9-20) mg/dL Creatinine (0.66-1.25) mg/dL POC Glucose (mg/dL) 146 H 146 H (75-99) mg/dL Phosphorus 5.4 H (2.5-4.5) mg/dL 12/18/20 12/18/20 Range/Units 06:43 06:43 WBC 16.4 H (3.8-10.6) k/uL RBC 3.95 L (4.30-5.90) m/uL Hgb 11.7 L (13.0-17.5) gm/dL Hct 34.8 L (39.0-53.0) % Neutrophils # 10.9 H (1.3-7.7) k/uL Eosinophils # 2.9 H (0-0.7) k/uL BUN 58 H (9-20) mg/dL Creatinine 3.71 H (0.66-1.25) mg/dL POC Glucose (mg/dL) (75-99) mg/dL Phosphorus (2.5-4.5) mg/dL Assessment and Plan Assessment: 1 Acute on chronic hypoxemic respiratory failure, likely secondary to bronchospasm, fluid overload as well as sleep apnea syndrome, noncompliant with CPAP/BiPAP. 2 Acute kidney injury, fluid overload, hyperkalemia, requiring hemodialysis. Current creatinine 3.71. No dialysis on 12/17/2020 3 Possible underlying sepsis secondary to osteomyelitis. 4 Recent admission for L4 through S1 fusion. Also, developed epidural phlegmon requiring evacuation there was placement of antibiotics spacer. 5 Diffuse truncal rash, possibly consistent with "red man" syndrome secondary to vancomycin infusion. Currently on daptomycin 6 History of hypertension. 7 History of chronic back pain. 8 Suspect pickwickian syndrome. 9 Obesity. 10 Altered mentation, confusion and agitation, likely related to toxic metabolic encephalopathy. Improving Plan: The patient was seen and evaluated by Dr. Anthony Currently stable from the pulmonary standpoint. No HD yesterday. Possibly no HD today per nephrology. Follow-up chest x-ray in a.m. More calm and cooperative, continue Seroquel Continue bronchodilators and daptomycin We will continue to follow I, the cosigning physician, performed a history & physical examination of the patient. Lungs sounds with crackles in the bilateral posterior bases. Maintaining good O2 saturations in the 90s on room air. I discussed the assessment and plan of care with my nurse practitioner, Kathleen Davidson. I attest to the above note as dictated by her.
[2020-12-18 11:28] LABS: Glucose,Whole Blood 98 mg/dL (75-99)
--- NOTE | 2020-12-18 11:31 | P.PN ---
Subjective Patient is seen in follow-up for acute kidney injury, currently hemodialysis dependent. Started on hemodialysis 12/11/2020. Mentation has improved. Currently working with physical therapy. No edema. Admits to good urine output. Blood pressure stable. No chest pain or shortness of breath. Vital signs are stable. General: The patient appeared well nourished and normally developed. HEENT: Head exam is unremarkable. Neck is without jugular venous distension. LUNGS: Breath sounds decreased. HEART: Rate and Rhythm are regular. ABDOMEN: Soft, nontender. EXTREMITITES: No edema. Objective - Vital Signs Vital signs: Vital Signs Temp 97.9 F 12/18/20 07:52 Pulse 89 12/18/20 07:52 Resp 16 12/18/20 09:15 BP 116/81 12/18/20 07:52 Pulse Ox 95 12/18/20 07:52 Intake & Output 12/17/20 12/18/20 12/18/20 18:59 06:59 18:59 Intake Total 400 Output Total 550 Balance -150 Intake: Oral 400 Output: Urine 550 - Labs CBC & Chem 7: 12/18/20 06:43 12/18/20 06:43 Labs: Abnormal Lab Results - Last 24 Hours (Table) 12/17/20 12/17/20 12/18/20 Range/Units 19:08 20:26 06:43 WBC 16.4 H (3.8-10.6) k/uL RBC 3.95 L (4.30-5.90) m/uL Hgb 11.7 L (13.0-17.5) gm/dL Hct 34.8 L (39.0-53.0) % Neutrophils # 10.9 H (1.3-7.7) k/uL Eosinophils # 2.9 H (0-0.7) k/uL BUN (9-20) mg/dL Creatinine (0.66-1.25) mg/dL POC Glucose (mg/dL) 146 H 146 H (75-99) mg/dL 12/18/20 Range/Units 06:43 WBC (3.8-10.6) k/uL RBC (4.30-5.90) m/uL Hgb (13.0-17.5) gm/dL Hct (39.0-53.0) % Neutrophils # (1.3-7.7) k/uL Eosinophils # (0-0.7) k/uL BUN 58 H (9-20) mg/dL Creatinine 3.71 H (0.66-1.25) mg/dL POC Glucose (mg/dL) (75-99) mg/dL Assessment and Plan Plan: Assessment: 1. Acute kidney injury secondary to ATN secondary to vancomycin toxicity and further worsened with the use of nonsteroidals, Shayne inhibitors as well as hypotension. Started on hemodialysis December 11. Baseline creatinine near 1. Nonoliguric. 2. Altered mental status with component of uremia. Improved since admission. 3. Volume overload. Improved with ultrafiltration and diuresis. 4. 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 5. Hypokalemia from diuresis. 6. Mild hyperphosphatemia secondary to acute kidney injury. Plan: Stop Lasix. Hold hemodialysis today. Continue to monitor for renal recovery. If renal function worsened tomorrow, will schedule for a permacath.
--- NOTE | 2020-12-18 11:33 | P.PN ---
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 Patient states that when she had GI bleed she had similar symptoms and presents to ER for evaluation. Patient states that she was having some dark-colored stools during the last 2 days which she attributes to her food intake. Patient also complaining of shortness of breath with exertion. No chest pain. On and off leg swelling currently denied any leg swelling. No fever no chills. No cough or sputum production. No recent illnesses or infections. No recent travel. Chest x-ray showed no evidence of acute pulmonary disease EKG showed normal sinus rhythm with left atrial enlargement. Patient is has history of heart murmur for which patient was seen by cardiology in the past. Laboratory showed hemoglobin level was 6.5 on admission and FOBT positive. BUN 14 creatinine 0.81 potassium 4.5 sodium 136 and blood sugar is 214 and magnesium 1.1 and calcium 10.4 coronavirus PCR is not detected. 12/07/2020 Patient is currently sitting in a chair. Awake alert oriented x3. Patient was started on capsule endoscopy study. Denied any complaints abdominal pain. Hemoglobin is at 7.0 today. No headache or dizziness or lightheadedness. GI is following. Continue insulin sliding scale and blood sugar control. 12/08/2020 Patient is currently resting in the bed comfortably. Denied any complaints of nausea vomiting or abdominal pain or diarrhea. Patient did have brown bowel movement today. Hemoglobin level is 7.1 today. Report pending for capsule endoscopy. GI is on board. Patient was started on oral diet and adjust insulin dose. subjective 12/09/20 this is a pleasant 45 years old male who presents because of fever and generalized macular papular rash , thought to be secondary to vancomycin toxicity , patient was on vancomycin for lumbar abscess , he is a status post laminectomy secondary to staph epidermidis resistant to oxacillin. Also with acute kidney injury and creatinine is 7.8 today with nephrology on the case and possible hemodialysis patient today he has some sleep breathing difficulty , he states that he has s leep apnea but not using BiPAP/CPAP at home. he denies previous diagnosis of COPD however his cutting back his smoking from 1.5 down to 0.5 pack per day , however patient is already on Solu-Medrol 60 mg 4 times a day for his rash He is a little short of breath today. No chest pain or coughing. No abdominal pain. He thinks his rash is the same but it itching improved , although is not resolved completely. Also he is on daptomycin and gentle hydration with normal saline at 50 mL per hour ID team and leather sprayer teams the case 12/10/2020 Patient still with some respiratory distress, he is on BiPAP overnight. This will help decrease air intraorally with scattered wheezing. His still on Solu- Medrol His extremity and trunk rash is better. He is for Right inguinal catheter was placed for hemodialysis. Patient most likely is going for hemodialysis per nephrology team. She denies any other new complaints, no chest pain, he denies abdominal pain, no nausea vomiting or diarrhea. No fever Orthopedic team input is appreciated and they recommended CT of the lumbar spine 12/11/2020 Patient is still short of breath especially with exertion, still have expiratory wheezing with prolonged expiration and continue on Solu-Medrol 60 mg and daptomycin for that His rash is significantly improving and fading away with some scale and he is hemodynamically stable however he needs 6 L of oxygen to keep saturation at 94% WBC is back to normal today at 8.9. remains on daptomycin for lumbar abscess, CAT scan of the lumbar spine ordered by orthopedic team is pending. ESR IV fluid was stopped and now he is currently receiving Lasix 40 mg daily. patient received hemodialysis yesterday and today. 12/12/2020 Today patient was more confused and he still the Neck and dyspneic with extensive expiratory wheezing. His saturation was low 90s, however his oxygen requirement increased to 15 L via nonrebreather. With ABG showing pH of 7.49 slightly elevated and low pO2 and 48 and pCO2 of 28. Chest x-ray: Showing diffuse bilateral infiltrates suspicious for diffuse pneumonia which is is unl ikely and most likely patient has fluid overload. Labs showing normal WBC at 8.1K, hemoglobin 12.3. BMP is stable with normal electrolytes. Creatinine is expected to be high 7.3. Sugar control 118-186. Liver enzymes not elevated. Patient remains on daptomycin, Solu-Medrol 60 mg and Lasix 40 mg IV daily. Most likely patient will go to the intensive care unit for pulmonary team recommendations 12/13/2020 Patient both to the ICU yesterday. Patient is awake, he looks a little upset, he keeps his oxygen off and asked him to put it back but he refuses after I explained the risk for him. Sitter At bedside He denies any pain. He still feels short of breath with expiratory wheezing. Yesterday he was on 15 L oxygen via nasal cannula which was the same but during the evening his requirement went down to 10 L via nasal cannula. Labs and glucose looks stable. Continue with Lasix 80 mg IV per leather sprayer. Also he is on Solu-Medrol 40 mg IV twice daily and daptomycin. patient to continue with hemodialysis today and tomorrow per leather sprayer 12/14/2020 Patient ICU still with agitation at time eventually he was sleeping this morning but it was very hard for staff to come down throughout all night. Patient still with dyspnea and expiratory wheezing. And still undergoing hemodialysis today. Because of these his steroids also the Medrol 40 mg once stopped today and his Seroquel was increased to 100 mg twice a day Other than that he is hemodynamically stable.He is saturating 92% on 2 L oxygen via nasal cannula Chest x-ray showing persistent bilateral consolidation or infiltrate, suspicious for pulmonary congestion He remains on daptomycin Next hemodialysis is on Wednesday, while tomorrow Wednesday he will go without treatment 12/15/2020 Patient is seen today in the ICU less agitated and confused however he was standing naked in the ICU asked to go home today. I explained to the patient is not medical ready to go home. Especially he is still on 60 L of oxygen via nasal cannula and a still getting hemodialysis. However it was noticed today is less dyspneic and is expiratory wheezing is significantly improved He is hemodynamically stable. No hemodialysis today and will be resumed tomorrow per nephrology team recommendation Slight leukocytosis 11.4 K probably from steroid effect. I did glucose is controlled. Continue with daptomycin 12/16/2020 Patient awake and breathing better with less wheezing. Still undergoing hemodialysis His oxygen requirements Down to 4 L to Achieve 94% on Room Air. Sugar Controlled and Lateral Leukocytosis at 15 K. Ferritin Is 4.2. Electrolytes Are Stable. Liver Enzymes Not Elevated Patient Is Improving Gradually and Out Of Bed to Chair Is Recommended. 12/17/2020 Patient still improved gradually his breathing easier and less wheezing Agitated over the last today now is much more calm. Severe coronary lower to 50 mg twice daily. Also he takes Percocet Continue with hemodialysis per nephrology team 12/18/2020 Patient was transferred to the general medical floor. Patient looks lethargic today however his breathing normally, and quietly with no expiratory wheezing and he saturating 95% on room air. VITAL SIGNS STABLE. He has mild leukocytosis of 16.4 K but also he was on the prednisone 40 mg. Creatinine is 3.7 and a O's are normal. Sugar is controlled. I discussed the case with nephrology team, they recommended to keep monitoring the patient to assist for any further hemodialysis or no dialysis anymore No steroids anymore. He is on daptomycin, Seroquel 50 mg twice daily. Objective - Vital Signs Vital signs: Vital Signs Temp 97.9 F 12/18/20 07:52 Pulse 89 12/18/20 07:52 Resp 16 12/18/20 09:15 BP 116/81 12/18/20 07:52 Pulse Ox 95 12/18/20 07:52 Intake & Output 12/17/20 12/18/20 12/18/20 18:59 06:59 18:59 Intake Total 400 Output Total 550 Balance -150 Intake: Oral 400 Output: Urine 550 - Exam -GENERAL: The patient is alert and oriented x3, not in any acute distress. Obese HEENT: Pupils are round and equally reacting to light. EOMI. No scleral icterus. No conjunctival pallor. Normocephalic, atraumatic. No pharyngeal erythema. No thyromegaly. CARDIOVASCULAR: S1 and S2 present. No murmurs, rubs, or gallops. PULMONARY: Chest is clear to auscultation, no wheezing or crackles. ABDOMEN: Soft, nontender, nondistended, normoactive bowel sounds. No palpable organomegaly. -MUSCULOSKELETAL: No joint swelling or deformity. Midline lower back scar, healed with no drainage or open wound EXTREMITIES: No cyanosis, clubbing, or pedal edema. NEUROLOGICAL: Gross neurological examination did not reveal any focal deficits. -SKIN: no petechiae. He has extensive rash, maculopapular previous more confluent on the chest, back and extending into most of the abdomen as well as extremities. No mouth ulcer -Genitalia: Patient refused - Labs CBC & Chem 7: 12/18/20 06:43 12/18/20 06:43 Labs: Abnormal Lab Results - Last 24 Hours (Table) 12/17/20 12/17/20 12/18/20 Range/Units 19:08 20:26 06:43 WBC 16.4 H (3.8-10.6) k/uL RBC 3.95 L (4.30-5.90) m/uL Hgb 11.7 L (13.0-17.5) gm/dL Hct 34.8 L (39.0-53.0) % Neutrophils # 10.9 H (1.3-7.7) k/uL Eosinophils # 2.9 H (0-0.7) k/uL BUN (9-20) mg/dL Creatinine (0.66-1.25) mg/dL POC Glucose (mg/dL) 146 H 146 H (75-99) mg/dL 12/18/20 Range/Units 06:43 WBC (3.8-10.6) k/uL RBC (4.30-5.90) m/uL Hgb (13.0-17.5) gm/dL Hct (39.0-53.0) % Neutrophils # (1.3-7.7) k/uL Eosinophils # (0-0.7) k/uL BUN 58 H (9-20) mg/dL Creatinine 3.71 H (0.66-1.25) mg/dL POC Glucose (mg/dL) (75-99) mg/dL Assessment and Plan Assessment: Nonoliguric Acute kidney injury due to ATN secondary to hypotension and toxicity to vancomycin.is getting hemodialysis Ongoing and recent lumbar abscess status post laminectomy secondary to staph epidermidis resistant to oxacillin Acute COPD exacerbation and possible obstructive sleep apnea, improved Acute hypoxic respiratory failure secondary to above. Resolved Maculopapular rash, improved Lactic acidosis, resolved Mild Hypovolemic hyponatremia Recent L4- S1 fusion surgery and revision and incision and drainage with antibiotic spacer. Hypertension currently not hypertensive Morbid obesity with BMI 41.6 Possible history of obstructive sleep apnea as per patient, not on CPAP and BiPAP Plan: This is a pleasant 45 years old male who presents with vancomycin toxicity, lumbar abscess, JENNIFER needing hemodialysis. Continue with daptomycin as per ID team recommendation. . DC IV fluids.Continue with hemodialysis as per nephrology team follow-up with plastics tooling engineer in addition. Patient will be monitored in intensive care unit Continued with pain management and follow up closely. Labs and medication were reviewed.. Continue same treatment. Continue with symptomatic treatment. Resume home medication. Monitor lytes and vitals. DVT and GI prophylaxis. Further recommendations as per clinical course of the patient DVT prophylaxis: Subcutaneous heparin GI Prophylaxis: Pepcid PT/OT: Home health care versus inpatient rehab Prognosis is guarded
--- NOTE | 2020-12-18 14:22 | P.PN ---
Subjective Progress Note Date: 12/18/20 HISTORY OF PRESENT ILLNESS This is a 45-year-old male patient treated for lumbar paraspinal abscess status post decompression and evacuation of an epidural phlegmon evacuation of L4 5 and L5-S1 osteo-discitis with L4 S1 fusion and antibiotic spacer placement. He is also treated for drug rash and acute kidney injury secondary to vancomycin which has been discontinued. Patient is currently covered with daptomycin. Patient denies any complaints today. He denies back pain. He denies any cough, chest pain. No abdominal pain, no nausea vomiting or diarrhea. Pulse ox 95% on room air, afebrile, heart rate 89, blood pressure 116/81. WBC 16.4, BUN 58 creatinine 3.71. PHYSICAL EXAMINATION Gen: This is originally obese 45-year-old male patient. He is resting in bed with appears to be in no acute distress. HEENT: Head is atraumatic, normocephalic. Pupils equal, round. Sclerae is anicteric. NECK: Supple. No JVD. No lymphadenopathy. LUNGS: No wheezing. No intercostal retractions. HEART: Regular rate and rhythm. No murmur. ABDOMEN: Soft. Bowel sounds are present. No masses. No tenderness. EXTREMITIES: No pedal edema. No calf tenderness. NEUROLOGICAL: Patient is awake, alert and oriented x3. ASSESSMENT Paraspinal abscess Drug rash secondary to vancomycin Acute kidney injury secondary to vancomycin Possible pneumonia PLAN Continue daptomycin 800 mg IV piggyback every 48 hours Prescription for daptomycin 800 mg IV piggyback every 48 hours 4 weeks has been provided to case reviewer Further recommendations as patient progresses. The above dictated assessment and findings were discussed with Dr. Gomez. The impression and plan of care have been directed as dictated. Genesis Ignacio nurse practitioner acting as scribe for Dr. Gomez. Objective - Vital Signs Vital signs: Vital Signs Temp 97.9 F 12/18/20 07:52 Pulse 89 12/18/20 07:52 Resp 16 12/18/20 09:15 BP 116/81 12/18/20 07:52 Pulse Ox 95 12/18/20 07:52 Intake & Output 12/17/20 12/18/20 12/18/20 18:59 06:59 18:59 Intake Total 400 Output Total 550 Balance -150 Intake: Oral 400 Output: Urine 550 - Labs CBC & Chem 7: 12/18/20 06:43 12/18/20 06:43 Labs: Abnormal Lab Results - Last 24 Hours (Table) 12/17/20 12/17/20 12/17/20 Range/Units 07:50 19:08 20:26 WBC (3.8-10.6) k/uL RBC (4.30-5.90) m/uL Hgb (13.0-17.5) gm/dL Hct (39.0-53.0) % Neutrophils # (1.3-7.7) k/uL Eosinophils # (0-0.7) k/uL BUN (9-20) mg/dL Creatinine (0.66-1.25) mg/dL POC Glucose (mg/dL) 146 H 146 H (75-99) mg/dL Phosphorus 5.4 H (2.5-4.5) mg/dL 12/18/20 12/18/20 Range/Units 06:43 06:43 WBC 16.4 H (3.8-10.6) k/uL RBC 3.95 L (4.30-5.90) m/uL Hgb 11.7 L (13.0-17.5) gm/dL Hct 34.8 L (39.0-53.0) % Neutrophils # 10.9 H (1.3-7.7) k/uL Eosinophils # 2.9 H (0-0.7) k/uL BUN 58 H (9-20) mg/dL Creatinine 3.71 H (0.66-1.25) mg/dL POC Glucose (mg/dL) (75-99) mg/dL Phosphorus (2.5-4.5) mg/dL
[2020-12-18 17:03] LABS: Glucose,Whole Blood 91 mg/dL (75-99)
[2020-12-18 20:48] LABS: Glucose,Whole Blood 83 mg/dL (75-99)
[2020-12-19] MEDS: oxyCODONE-APAP 10-325MG 1 EACH TAB PO PRN ×3 (04:18→19:06)
[2020-12-19 07:27] LABS: Glucose,Whole Blood 86 mg/dL (75-99)
[2020-12-19] MEDS: INSULIN ASPART (NovoLOG) 100 UNIT/ML VIAL SQ SCH ×3 (07:28→18:16)
[2020-12-19] MEDS: HEPARIN SODIUM,PORCINE 5,000 UNIT/ML 1 ML VIAL SQ SCH (08:19)
[2020-12-19] MEDS: CITALOPRAM HYDROBROMIDE 20 MG TAB PO SCH (08:19)
[2020-12-19] MEDS: QUEtiapine 50 MG TAB PO SCH (08:19)
[2020-12-19] MEDS: METOPROLOL TARTRATE 25 MG TAB PO SCH (08:19)
--- NOTE | 2020-12-19 09:11 | P.PN ---
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 He is doing very well. He was up and about yesterday. He denies any pain in his back. States that he has been getting better day by day. Wants to go home denies any fevers chills shortness of breath or chest pain at this time. Objective - Vital Signs Vital signs: Vital Signs Temp 97.9 F 12/19/20 07:32 Pulse 83 12/19/20 07:32 Resp 16 12/19/20 07:32 BP 130/85 12/19/20 07:32 Pulse Ox 94 L 12/19/20 07:32 Intake & Output 12/18/20 12/19/20 12/19/20 18:59 06:59 18:59 Intake Total 400 250 Balance 400 250 Weight 131.542 kg Intake: Oral 400 250 Other: # Voids 2 2 - Exam Exam is stable today. The patient has no pain in his back no pain with palpation is up and about he has full strength in his lower extremities. PHYSICAL EXAMINATION: Vitals: Stable at this time General: Awake, alert, appropriate for age, in no acute distress. HEENT: No unusual neck masses around region of lateral neck triangle, thyroid, supraclavicular groove. Extremities: Skin warm and dry without no acute lesions, coloration, temperature, skin intact, no tenderness or erythema. Integument: Hairy patches: Absent Dorsal skin dimples: Absent Cafe au la[employer] spots: Absent Surgical incisions: Incision is well-healed clean dry and intact no erythema or ecchymosis or edema no dehiscence. In place just for protection as patient is lying on back a lot Palpation: Please see Pain drawing on Intake sheet for further detail. (Tenderness = T, Nontender = NT, Swelling = S, Ecchymosis = E) Findings on Midline and paraspinal palpation and percussion: Cervical: NT Thoracic: NT Lumbar: NT Sacral: NT Special findings: None POSTURAL and MUSCULO-SKELETAL EVALUATION: Neck ROM: Unrestricted in six directions Lumbar ROM: Unrestricted in six directions Shoulder ROM: Symmetric in abduction, ER/IR Hip ROM: Symmetric in abduction, adduction, ER/IR Knee ROM: Symmetric and intact in Flexion / extension Hands: Normal appearing structure L and R Feet: Normal appearing structure L and R VASCULAR STATUS : Wrist Pulses: 2/4 bilateral radial and ulnar Pedal Pulses: 2/4 bilateral DP and PT Color: Normal Edema: None NEUROLOGIC EXAMINATION: Mental Status: Awake and alert, fully oriented, with normal attention, concentration and memory, and fluent, appropriate speech. Cranial Nerves: I: Olfactory not tested. II: Visual acuity normal, no visual field deficit noted with confrontation. III,IV: Normal pupillary reflexes & intact extraocular movements without nystagmus. V,: Intact symmetrical facial sensation. VII: Intact symmetrical facial motor movement VIII: Hearing intact. IX,X: Intact gag, swallow, & normal voice. XI: Sternocleidomastoid, trapezius function intact. XII: Tongue midline with normal movements. Special Tests: L'hermitte's Sign: Absent Spurling'Sign: Absent Bilateral Cubital percussion test: Absent Bilateral Karolina-Tinel sign - Carpal region: Absent Bilateral Straight Leg Raising: Absent Bilateral Motor Exam (0-5/5, N/T) STRENGTH UPPER EXTREMITY Shoulder Abd (Not part of DONNY Motor score): RIGHT 5 LEFT 5 Elbow Flexors: RIGHT 5 LEFT 5 Elbow Extensor: RIGHT 5 LEFT 5 Wrrist Dorsiflexors: RIGHT 5 LEFT 5 Finger Abductor: RIGHT 5 LEFT 5 Handling Tech: RIGHT 5 LEFT 5 LOWER EXTREMITY Hip Flexor (Not part of DONNY Motor Score): RIGHT 5 LEFT 5 Knee Flexor: RIGHT 5 LEFT 5 Knee Extensor: RIGHT 5 LEFT 5 Ankle Dorsiflexion: RIGHT 5 LEFT 5 Ankle Plantarflexion: RIGHT 5 LEFT 5 EHL: RIGHT 5 LEFT 5 FHL: RIGHT 5 LEFT 5 DONNY Motor Score: RIGHT 50/50 LEFT 50/50 REFLEXES Biecp: RIGHT 2 LEFT 2 Tricep: RIGHT 2 LEFT 2 Brachioradialis: RIGHT 2 LEFT 2 Patellar: RIGHT 2 LEFT 2 Achilles: RIGHT 2 LEFT 2 Pathological Reflexes Zavala's: RIGHT Absent LEFT Absent Babinski: RIGHT Absent LEFT Absent Clonus: RIGHT None LEFT None SENSORY Joint Position: Intact bilaterally Vibration Intact bilaterally Pain and LT sense Intact C5-T1 and L2-S1 Dermatomal deficit None - Labs CBC & Chem 7: 12/18/20 06:43 12/18/20 06:43 Assessment and Plan Assessment: Status post evacuation paraspinal and epidural phlegmon with L4 to S1 osteo- discitis status post L4 to S1 posterior stabilized fusion with antibiotic cement spacer placement and antibiotic bead placement Vancomycin toxicity, 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 Deferred to medicine and nephrology ID for current management -Pain control: Adequate at this time -Aggressive ambulation protocol. OOB with all meals. OOB or in chair 4-5x daily. -PT/OT -TEDs, SCDs, mechanical ppx. OK for heparin today. Early ambulation is best. -GI ppx. -No further imaging needed at this time -Trend labs. Await creatinine results -No surgical intervention at this time -Dispose: Per primary team
[2020-12-19 09:42] LABS: African American GFR (CKD) 22.9 (60.0-200.0); Albumin 3.6 g/dL (3.80-4.90); Anion Gap 13.9 mmol/L (4.00-12.00); BUN/Creat Ratio 19.14 Ratio (12.00-20.00); Calcium 9.1 mg/dL (8.7-10.3); Carbon Dioxide 26.1 mmol/L (21.6-31.8); Globulin 1.8 g/dL (1.6-3.3); Magnesium 1.4 mg/dL (1.5-2.4); Non-African American GFR(CKD) 19.8 (60.0-200.0); Potassium 3.5 mmol/L (3.5-5.5); Total Bilirubin 0.4 mg/dL (0.2-1.2); Total Protein 5.4 g/dL (6.2-8.2)
[2020-12-19] MEDS ORDERED: POTASSIUM CHLORIDE ER 20 MEQ TAB.ER PO STA (10:13)
--- NOTE | 2020-12-19 10:55 | P.PN ---
Subjective Progress Note Date: 12/19/20 Principal diagnosis: Acute hypoxic respiratory failure, obstructive sleep apnea, fluid volume overload, acute kidney injury This is a 45-year-old male who presented to the emergency department on September 06 complaining of fever, and a rash. He is 15 days postop revision of L4-L5 with L4 through S1 fusion, and placement of antibiotic spacer. We actually know this patient because he came back from the operating room initially to the intensive care unit on the ventilator. He was quite rambunctious, and the patient was eventually extubated without a formal spontaneous breathing trial. The patient was apparently started on vancomycin 3 times a day for osteomyelitis. The patient presented to the emergency room on the with 2 days of fever and rash. The rash looks like a red man syndrome rash. It was extending in the back of his neck and extending down his whole back and sides of his chest. The surgery was done by Dr. Jama, and he recently saw him in the office. We were called in today because there was an "A" team called on the patient. The patient was apparently manifesting some respiratory distress. One of the charge nurses from the ICU, thought the patient was just a deep sleeper and probably suffering from some sleep apnea syndrome. The patient apparently does have a history of sleep apnea, but does not wear his CPAP/BiPAP device. She did not feel like the patient needed to be transferred down to the intensive care unit. Anyway, and we saw the patient, the patient was a bit sleepy, we recommended Solu-Medrol, Perforomist, and Pulmicort updrafts, and DuoNeb 4 times a day and when necessary. In addition, a blood gas was ordered but I didn't think it was necessary. Finally, we recommended BiPAP at 12/5 and 50%. We encouraged the patient to wear it until he started doing better. We'll be went to go see him, his saturations were in the low 90s, and at that time, he was on 6 L nasal cannula. He did arouse and respond appropriately. On 12/10/2020 patient seen in follow-up. He remains on BiPAP support, tolerating it well, resting comfortably in bed, BiPAP pressures of 12 and 5 and 50%, his lung sounds are diminished, he is a urine output has been diminished, his renal function continues to worsen, today's BUN is up to 73 and creatinine is 9.8 with potassium of 5.7, temporary emergent hemodialysis catheter was placed in the femoral area, and patient will have his hemodialysis treatment today, the rest of his blood work has been reviewed, showing white blood cell count of 15, hemoglobin is 11. His urinalysis showed possibility of a urinary tract infection, his blood and urine cultures have been negative, gastric chest x-ray showed bilateral patchy airspace disease, low lung volumes. Patient remains on daptomycin, and treatments, IV steroids. He is on IV Lasix 40 mg daily. Has not had significant diuresis On 12/11/2020 patient seen in follow-up, he is currently off BiPAP support, he is on 6 L of oxygen, he had hemodialysis treatment yesterday with removal of 1 L of fluid, and today he is having another session of hemodialysis with a goal of removing 2 L, he is still be drowsy, but more responsive to verbal stimulation, he has had no fever or chills, no recent chest x-ray. Remains on IV diuretics with Lasix 40 mg daily, IV steroids and breathing treatments. Continues on labs reviewed, slight improvement in renal profile, with B1 is 65 and creatinine of 8.1, potassium is 4.7. She continues on daptomycin, vancomycin has been discontinued, he is on IV steroids, and Benadryl for persistent rash possibly related to vancomycin. On 12/12/2020 patient is seen in follow-up on medical surgical floor, yesterday he had hemodialysis done with removal of 2.5 L of fluid, and today is having another hemodialysis session with the goal of removing 2.5 L, he is more awake today, he is currently on 6 L, he is agitated at times, and removes his oxygen. At times confused, at times not cooperative. Chest x-ray today shows diffuse interstitial pattern. Patient remains on daptomycin, but has significant rash, which looks very dry flaky on today's exam. He continues on IV Solu-Medrol every 6, Benadryl, he is given some pain medications. Still seems generally swollen, more gas was completed following hemodialysis recurrent showing pO2 of only 40%, pCO2 of 37, pH of 7.49 and this was done and FiO2 of 44% and subsequently his FiO2 was increased up to 100% nonrebreather mask. In view of his cardiorespiratory status, encephalopathy, confusion and agitation, moving his oxygen mask off we decided to move into the intensive care unit for closer monitoring. ProBNP was ordered and came back at 9570, pro-calcitonin was sent and is pending at this time, CRP is 85.3. His labs before hemodialysis showed creatinine is 7.35, and BUN of 50, and electrolytes are within normal limits. The patient is seen today 12/13/2020 in follow-up in the intensive care unit. He is transferred here yesterday with increasing restlessness increasing oxygen needs and altered mental status. He is currently on 15 L high flow nasal cannula. No current IV fluids. He did receive hemodialysis yesterday with 2.5 L removed. Plan is for repeat hemodialysis today. Chest x-ray continues to show patchy bilateral densities within the lungs. Stable compared to previous. Right-sided PICC line in place. Urine culture revealed no growth. Blood cultures revealed no growth. White count 7.5. Hemoglobin 9.6. Sodium 135. Potassium 3.9. Creatinine 4.88. He remains on DuoNeb inhalations, Pulmicort and Perforomist inhalations, IV Solu-Medrol. Antibiotics in the form of daptomycin. The patient is seen today 12/14/2020 in follow-up in the intensive care unit. He is currently resting comfortably in bed. He is quite restless and agitated throughout the night. Security assistance was required. He has received Haldol, Seroquel, on Precedex at 0.7 mcg/kg per hour. He is requiring 10 L high flow nasal cannula to maintain O2 saturations in the 90s. Chest x-ray reveals faint bilateral multifocal infiltrates. No significant change. Urine culture revealed no growth. Blood culture revealed no growth. White count 9.2. Hemoglobin 10.4. Sodium 136. Potassium 4.5. Creatinine 3.92. He remains on d aptomycin. IV diuretics. Bronchodilators and IV Solu-Medrol. The patient is seen today 12/15/2020 and follow-up in the intensive care unit. He is currently sitting up in a recliner at the bedside. More awake and alert. More calm and cooperative today. Maintaining O2 saturations in the 90s on 6 L/m per nasal cannula. No current IV fluids. He did receive hemodialysis yesterday with 2 L removed. His urine output has picked up as well. Blood and urine cultures reveal no growth. White count 11.4. Hemoglobin 11.0. Platelet count 206. Sodium 136. Potassium 3.6. Creatinine 3.58. Glucose 107. He remains on daptomycin, bronchodilators, IV diuretics. He is on Seroquel 100 mg twice a day. Off Precedex. Last Haldol required at midnight. On 12/16/2020 the patient is being seen in follow-up in the intensive care unit. The patient has recovered from his rash. Note that the patient toxicity to vancomycin. The patient developed an acute kidney injury related to vancomycin toxicity and the patient developed also Curry syndrome. The renal function is still in.. Creatinine from today 4.26 with a BMI of 67. The patient produced 1 L of urine output overnight. As such, the patient is non-oliguric at this point in time. His last session of hemodialysis was on 12/14/2020 with a total of 2 L of fluid was removed. No dialysis was done yesterday. The blood cultures are negative. The patient has a white cell count of 15 with a hemoglobin of 11.9. The patient has a single lumen PICC in the right upper extremity and the patient has a right femoral hemodialysis catheter in place. His cardiac rhythm is sinus. He does have some sinus bradycardia with sleeping knowing that the patient has obvious clinical features of obstructive sleep apnea. He is currently on 4 L of oxygen by nasal cannula with a pulse of 75%. He is tolerating his diet. He had a loose bowel movement on 12/15/2020. The patient has ongoing osteomyelitis on antibiotics. Spine surgeries also on the case. He is currently off the BiPAP. The chest x-ray still showing a component of mild pulmonary vascular congestion. Remains on DuoNeb nebulized treatments around the clock. Remains on Pulmicort and Perforomist nebulized treatments. The patient shows no significant agitation. The patient is on Seroquel 100 mg by mouth twice a day and Haldol on an as-needed basis. Precedex has been disc ontinued. On 12/17/2020, I'm seeing this patient for a follow-up. The patient is resting comfortably on room air oxygen. No chest x-ray was done today. Noted respiratory distress. She remains on IV antibiotics with daptomycin and vancomycin has been discontinued. He is receiving 800 mg every 48 hours. The repeat cultures were negative. Meanwhile, the patient has no rash. The patient has developed an acute kidney injury, nonoliguric related to vancomycin toxicity/ATN and the patient underwent another session of hemodialysis yesterday for a creatinine of 4.26. Follow-up labs from today are still pending. Meanwhile, his produced adequate urine output in the order of 1.700 mL over the past 24 hours. As such, the patient is nonoliguric. The patient has a single lumen PICC in his right upper extremity. He also has a diagnosis And his femoral vein. His cardiac rhythm is sinus. He has ongoing issues with back pain. Surgical wound site is dry clean and intact. The patient is on a medical surgical floor overflow currently in the intensive care unit. He wanted to go home yesterday, however this is not possible especially with this ongoing renal failure. His Seroquel is currently at 100 mg twice a day. Is lethargic. No agitation. No confusion. No delirium. He is somnolent under the effect of Seroquel. No agitation. The patient is seen today 12/18/2020 in follow-up on the regular medical floor. He is up ambulating in the room. Awake and alert in no acute distress. Denies any worsening shortness of breath, cough or congestion. Maintaining good O2 saturations in the 90s on room air. He's been afebrile. Hemodynamically stable. Blood and urine cultures reveal no growth. White count 16.4. Hemoglobin 11.7. Sodium 138. Potassium 3.6. Creatinine 3.71, up from 3.33 yesterday. No hemodialysis done yesterday. Nephrology is following. Considering possible HD catheter versus stopping dialysis depending 9 creatinine tomorrow. He is making urine. Continued on IV diuretics. He has remained calm and cooperative with staff. Continued on Seroquel. Remains on daptomycin. Dressing to the back is 9 intact. Heparin for DVT prophylaxis. The patient is seen today 12/19/2020 and follow-up on the regular medical floor. He is currently resting comfortably in bed. Awake and alert in no acute distress. Resting flat. No shortness of breath, cough or congestion. O2 saturation 94% on room air. He's afebrile. Hemodynamically stable. Blood cultures revealed no growth. Urine culture revealed no growth. He is making urine. Creatinine trending down currently 3.5. Sodium 141. Potassium 3.5. He remains on daptomycin. PICC line in the right upper extremity. Off diuretics currently per nephrology. Objective - Vital Signs Vital signs: Vital Signs Temp 97.9 F 12/19/20 07:32 Pulse 83 12/19/20 07:32 Resp 16 12/19/20 07:32 BP 130/85 12/19/20 07:32 Pulse Ox 94 L 12/19/20 07:32 Intake & Output 12/18/20 12/19/20 12/19/20 18:59 06:59 18:59 Intake Total 400 250 Balance 400 250 Weight 131.542 kg Intake: Oral 400 250 Other: # Voids 2 2 - Exam GENERAL EXAM: Awake, alert, more cooperative, 45 -year-old male patient, currently on room air HEAD: Normocephalic/atraumatic. EYES: Normal reaction of pupils, equal size. Conjunctiva pink, sclera white. NOSE: Clear with pink turbinates. THROAT: No erythema or exudates. NECK: No masses, no JVD, no thyroid enlargement, no adenopathy. CHEST: No chest wall deformity. Symmetrical expansion. LUNGS: Equal air entry with crackles in the bilateral posterior bases CVS: Regular rate and rhythm, normal S1 and S2, no gallops, no murmurs, no rubs ABDOMEN: Soft, nontender. No hepatosplenomegaly, normal bowel sounds, no guarding or rigidity. EXTREMITIES: No clubbing, no edema, no cyanosis, 2+ pulses and upper and lower extremities. MUSCULOSKELETAL: Muscle strength and tone normal. SPINE: Dressing to previous lumbar surgery dry and intact. No scoliosis or deformity SKIN: Patient has improving red confluent rash all over patient's face, shoulders, neck, abdomen, back and upper thighs CENTRAL NERVOUS SYSTEM: More calm and cooperative. No focal deficits, tone is normal in all 4 extremities. - Labs CBC & Chem 7: 12/18/20 06:43 12/19/20 05:36 Labs: Abnormal Lab Results - Last 24 Hours (Table) 12/19/20 Range/Units 05:36 Anion Gap 13.90 H (4.00-12.00) mmol/L BUN 67.0 H (9.0-27.0) mg/dL Creatinine 3.5 H (0.6-1.5) mg/dL Est GFR (CKD-EPI)AfAm 22.9 L (60.0-200.0) Est GFR (CKD-EPI)NonAf 19.8 L (60.0-200.0) Magnesium 1.4 L (1.5-2.4) mg/dL Total Protein 5.4 L (6.2-8.2) g/dL Albumin 3.60 L (3.80-4.90) g/dL Assessment and Plan Assessment: 1 Acute on chronic hypoxemic respiratory failure, likely secondary to bronchospasm, fluid overload as well as sleep apnea syndrome, noncompliant with CPAP/BiPAP. 2 Acute kidney injury, fluid overload, hyperkalemia, requiring hemodialysis. Current creatinine 3.5. No dialysis since 12/16/2020 3 Possible underlying sepsis secondary to osteomyelitis. Remains on daptomycin. 4 Recent admission for L4 through S1 fusion. Also, developed epidural phlegmon requiring evacuation there was placement of antibiotics spacer. 5 Diffuse truncal rash, possibly consistent with "red man" syndrome secondary to vancomycin infusion. Currently on daptomycin 6 History of hypertension. 7 History of chronic back pain. 8 Suspect pickwickian syndrome. 9 Obesity. 10 Altered mentation, confusion and agitation, likely related to toxic metabolic encephalopathy. Improving Plan: The patient was seen and evaluated by Dr. Anthony Currently stable from the pulmonary standpoint. More calm and cooperative, discontinue Seroquel Continue daptomycin per ID services Home once cleared by nephrology I, the cosigning physician, performed a history & physical examination of the patient. Lungs sounds with crackles in the bilateral posterior bases. Maintaining good O2 saturations in the 90s on room air. I discussed the as sessment and plan of care with my nurse practitioner, Kathleen Davidson. I attest to the above note as dictated by her.
[2020-12-19] MEDS: MAGNESIUM SULFATE-D5W PMX 1 GM in DEXTROSE/WATER 1 100ML.BAG IVPB SCH ×2 (11:31→13:07)
--- NOTE | 2020-12-19 11:52 | P.PN ---
Subjective Patient is seen in follow-up for acute kidney injury, currently hemodialysis dependent. Started on hemodialysis 12/11/2020. Mentation has improved. Has been working with physical therapy. Wants to go home. No edema. Admits to good urine output. Blood pressure stable. No chest pain or shortness of breath. Vital signs are stable. General: The patient appeared well nourished and normally developed. HEENT: Head exam is unremarkable. Neck is without jugular venous distension. LUNGS: Breath sounds decreased. HEART: Rate and Rhythm are regular. ABDOMEN: Soft, nontender. EXTREMITITES: No edema. Objective - Vital Signs Vital signs: Vital Signs Temp 97.9 F 12/19/20 07:32 Pulse 83 12/19/20 07:32 Resp 16 12/19/20 07:32 BP 130/85 12/19/20 07:32 Pulse Ox 94 L 12/19/20 07:32 Intake & Output 12/18/20 12/19/20 12/19/20 18:59 06:59 18:59 Intake Total 400 250 Balance 400 250 Weight 131.542 kg Intake: Oral 400 250 Other: # Voids 2 2 - Labs CBC & Chem 7: 12/18/20 06:43 12/19/20 05:36 Labs: Abnormal Lab Results - Last 24 Hours (Table) 12/19/20 Range/Units 05:36 Anion Gap 13.90 H (4.00-12.00) mmol/L BUN 67.0 H (9.0-27.0) mg/dL Creatinine 3.5 H (0.6-1.5) mg/dL Est GFR (CKD-EPI)AfAm 22.9 L (60.0-200.0) Est GFR (CKD-EPI)NonAf 19.8 L (60.0-200.0) Magnesium 1.4 L (1.5-2.4) mg/dL Total Protein 5.4 L (6.2-8.2) g/dL Albumin 3.60 L (3.80-4.90) g/dL Assessment and Plan Plan: Assessment: 1. Acute kidney injury secondary to ATN secondary to vancomycin toxicity and further worsened with the use of nonsteroidals, Shayne inhibitors as well as hypo tension. Started on hemodialysis December 11. Baseline creatinine near 1. Nonoliguric. Dialysis has been held the last 2 days. Creatinine today is down to 3.5. 2. Altered mental status with component of uremia. Improved since admission. 3. Volume overload. Improved with ultrafiltration and diuresis. 4. 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 5. Hypokalemia from diuresis. 6. Mild hyperphosphatemia secondary to acute kidney injury. Expect improvement with improving renal function. 7. Hypomagnesemia from poor intake. Plan: Lasix stopped yesterday. Remove dialysis catheter. Expect renal recovery. Replace potassium and magnesium. Repeat BMP and magnesium level 2-3 days postdischarge. Follow up outpatient in 1 week.
--- NOTE | 2020-12-19 14:21 | PN ---
PROGRESS NOTE DATE OF SERVICE: 12/19/2020 REASON FOR FOLLOWUP: 1. Lumbar paraspinal abscess. 2. Drug rash. INTERVAL HISTORY: The patient is currently afebrile. Patient is feeling better. Breathing comfortably. Denies having any chest pain, shortness of breath or cough. No abdominal pain. No pain to the lower back area. Incision has healed. He is making significant amount of urine. PHYSICAL EXAMINATION: Blood pressure 130/85, pulse of 83, temperature 97.9. He is 94% on room air. General description is a middle-aged male lying in bed in no distress. RESPIRATORY SYSTEM: Unlabored breathing, clear to auscultation anteriorly. HEART: S1, S2. Regular rate and rhythm. ABDOMEN: Soft, no tenderness. LABS: BUN of 67, creatinine 3.5. Blood and urine culture had been negative. DIAGNOSTIC IMPRESSION AND PLAN: Patient with lumbar paraspinal abscess, status post drainage. Previous culture positive for Staphylococcus epidermidis, oxacillin resistant. Patient admitted to the hospital with drug rash and vancomycin toxicity with the patient has shown clinical improvement. Nephrology has cleared him for discharge after removal of his catheter and close observation of his kidney function. Antibiotic in the form daptomycin 800 mg q.48h hours to finish therapy. Weekly monitor his blood work and close outpatient followup. MMODL / IJN: [id number] /
[2020-12-19] MEDS ORDERED: MAGNESIUM SULFATE-D5W PMX 1 GM in DEXTROSE/WATER 1 100ML.BAG IVPB ONE (15:00)
[2020-12-19 15:28] VITALS: BP 121/78; PULSE 80; RESP 20; TEMP 98.3
--- NOTE | 2020-12-19 18:31 | PCN ---
PROCEDURE NOTE PROCEDURE PERFORMED: Removal of dialysis catheter, right femoral approach. DESCRIPTION OF PROCEDURE: Patient was seen in the room. Right side of the groin was prepped and drapes applied in the usual sterile manner. Stitches were removed and dialysis catheter was removed. Pressures were held. Pressure dressing applied. Bedrest for 2 hours. The patient tolerated the procedure well. MMODL / IJN: [id number] /
--- NOTE | 2021-01-13 07:43 | P.DS ---
Providers Date of admission: 12/07/20 16:34 Attending physician: Alpesh Cisse Consults: 12/07/20 16:48 Consult Physician Urgent Consulting Provider: Shirley Aquino Consult Reason/Comments: sepsis, Febrile, osteomyelitis Do you want consulting provider notified?: Already Contacted 12/07/20 16:49 Consult Physician Urgent Consulting Provider: Marcia Gentile Consult Reason/Comments: Sepsis, JENNIFER Do you want consulting provider notified?: Yes 12/08/20 06:50 Consult Physician Routine Consulting Provider: Abdirizak Jama Consult Reason/Comments: KNOWN PT Do you want consulting provider notified?: Yes 12/09/20 12:41 Consult Physician Urgent Consulting Provider: Guillermo Conroy Consult Reason/Comments: hypoxia Do you want consulting provider notified?: Yes 12/09/20 13:17 Consult Physician Urgent Consulting Provider: Medhat Egan Consult Reason/Comments: dialysis catheter Do you want consulting provider notified?: Yes Primary care physician: [place] [facility] Course: Date of service 12/19/2020 Diagnoses: Nonoliguric Acute kidney injury due to ATN secondary to hypotension and toxicity to vancomycin.status post transient hemodialysis, currently improved and now no need for dialysis upon discharge Ongoing and recent lumbar abscess status post laminectomy secondary to staph epidermidis resistant to oxacillin Acute COPD exacerbation and possible obstructive sleep apnea, improved Acute hypoxic respiratory failure secondary to above. Resolved Maculopapular rash, improved Lactic acidosis, resolved Possible residual chronic kidney disease stage IV upon discharge Mild Hypovolemic hyponatremia Recent L4- S1 fusion surgery and revision and incision and drainage with antibiotic spacer. History of Hypertension currently not hypertensive Morbid obesity with BMI 41.6 Possible history of obstructive sleep apnea as per patient, not on CPAP and BiPAP Hospital course: this is a pleasant 45 years old male who presents because of fever and generalized macular papular rash , thought to be secondary to vancomycin toxicity , patient was on vancomycin for lumbar abscess from recent previous admission , he is a status post laminectomy secondary to staph epidermidis resistant to oxacillin. Also with acute kidney injury and creatinine went up on admission 3.9, 5.6, 7.8 today with nephrology on the case and he had to undergo hemodialysis and monitor in the ICU closely Also on admission patient noticed to have some breathing difficulty, secondary to sleep apnea and acute COPD exacerbation plus fluid overload secondary to his renal disease, with acute hypoxic respiratory failure. Patient needs supplemental oxygen and monitor the ICU for short stay. Patient has been treated with Solu-Medrol, breathing treatment, also daptomycin per ID team for his infection and continuous hemodialysis per schedule. With the treatment he showed significant improvement, his rash significantly improved and disappeared prior to discharge. His breathing stabilized and he was on room air at rest upon discharge. Also he does not need hemodialysis on discharge per nephrology team recommendation and hemodialysis catheter removed prior to discharge. He has good urine output upon discharge Patient back to his baseline clinically, patient was eager to be discharged for the last 3-4 days. On discharge he denies chest pain or dyspnea, no coughing, no change in urine or bowel habits. No abdominal pain, no nausea vomiting he tolerated Cipro, no headache or weakness. No fever Patient was cleared for discharge by all consults consults including pulmonary/critical care, nephrology, infectious disease, orthopedic team Patient will be discharged home with home care and IV antibiotics, see discharge instructions. Problems and management plan were discussed with the patient and he verbalized understanding and acceptance Patient was found stable and can be discharged home in guarded prognosis however he needs follow-up as an outpatient. Patient was instructed to follow up with PCP Dr. Guillermo Rodriguez within one week and patient agrees. Also patient instructed to follow up with orthopedic team Dr. Jama, skinner pelts Dr. Abreu, infectious disease Dr. aquino, and paramedic supervisor Dr. Anthony in 1-2 weeks and he agrees with the appointments made for him by staff and states he'll follow-up. Physical exam -Gen: patient is a AAOx3, no distress. Obese CVS: S1-S2, RRR, no murmur Lungs: B/L CTA, no wheezing Abdomen: soft, no distention, no tenderness, positive bowel sounds Extremity: no leg edema or induration Time spent more than 35 minutes Patient Condition at Discharge: Stable Plan - Discharge Summary Discharge Rx Participant: No New Discharge Prescriptions: New DAPTOmycin [Cubicin] 800 mg IVPB Q48H #14 vial Changed oxyCODONE-APAP 10-325MG [Percocet 10-325 mg] 1 tab PO Q6HR PRN 7 Days #70 tab PRN Reason: Pain Discontinued Meloxicam 15 mg PO DAILY PRN PRN Reason: Pain Atenolol [Tenormin] 100 mg PO DAILY hydroCHLOROthiazide [Hydrodiuril] 25 mg PO DAILY Tadalafil [Cialis] 20 mg PO DAILY PRN PRN Reason: E.D. Na Phos,M-B/Na Phos,Di-Ba [Fleet Adult] 133 ml RECTAL DAILY PRN PRN Reason: Constipation Losartan Potassium 100 mg PO DAILY Gabapentin 600 mg PO TID 3 Days #90 tab Discharge Medication List DAPTOmycin [Cubicin] 800 mg IVPB Q48H #14 vial 12/18/20 [Rx] oxyCODONE-APAP 10-325MG [Percocet 10-325 mg] 1 tab PO Q6HR PRN 7 Days #70 tab 12/19/20 [Rx] Follow up Appointment(s)/Referral(s): [facility]fusion [NON-STAFF] - ([facility] will call before delivering Daptomycin 800mg [id number] for 14 doses. They will deliver tonight or tomorrow. ) Abdirizak Jama DO [Family Provider] - 01/02/21 1:10 pm Aguilar Brand DO [STAFF PHYSICIAN] - 01/01/21 10:40 am (This is a phone appointment not in the office The office will call the morning of your appointment to check you in, if you do not receive a call by the afternoon please call to check in) Turner Gresham DO [Primary Care Provider] - 12/25/20 2:20 pm Shirley Aquino MD [STAFF PHYSICIAN] - 01/06/21 1:30 pm Sandra Anthony MD [STAFF PHYSICIAN] - 01/15/21 1:00 pm [facility] Visiting Nurse, [NON-STAFF] - ([facility] will call to set up your first visit for 12/21/20 to begin IV antibiotic infusions. ) Ambulatory/Diagnostic Orders: C Reactive Protein [LAB.AMB] Location: None Selected Complete Blood Count w/diff [LAB.AMB] Location: None Selected Comprehensive Metabolic Panel [LAB.AMB] Location: None Selected Erythrocyte Sedimentation Rate [LAB.AMB] Location: None Selected Patient Instructions/Handouts: Acute Kidney Injury (DC), Osteomyelitis (DC), Sepsis (GEN) Activity/Diet/Wound Care/Special Instructions: HOME MEDS DOWNSTAIRS IN PHARMACY. SEE SLIP IN CHART!!!!!!!!!!!!!!!!!!!!!!!!!!!!!!!!!!! Money clip sent home with dilia 12/12/20 prior to ICU transfer Discharge Disposition: HOME WITH HOME HEALTH SERVICES
== END 2020-12-19 19:39 | disposition home health service (06) | DRG 871 ==
LOC: EC 14:06 → 4SSUR 16:34 → 2SICU 12-12 13:08 → 4SSUR 12-18 00:38
PROVIDERS: ADMIT Internal Medicine; ATTEND Internal Medicine
PROC: 06HY33Z Insertion of Infusion Device into Lower Vein, Percutaneous Approach (ICD-10-PCS; principal; 2020-12-11)
PROC: 5A0945A Assistance with Respiratory Ventilation, 24-96 Consecutive Hours, High Flow/Velocity Cannula (ICD-10-PCS; 2020-12-13)
PROC: 06PYX3Z Removal of Infusion Device from Lower Vein, External Approach (ICD-10-PCS; 2020-12-19)
DX: A41.02 Sepsis due to Methicillin resistant Staphylococcus aureus (principal); N17.0 Acute kidney failure with tubular necrosis; J96.21 Acute and chronic respiratory failure with hypoxia; G06.1 Intraspinal abscess and granuloma; G92 Toxic encephalopathy; E87.1 Hypo-osmolality and hyponatremia; E87.2 Acidosis; J44.1 Chronic obstructive pulmonary disease with (acute) exacerbation; E66.2 Morbid (severe) obesity with alveolar hypoventilation; Z68.41 Body mass index [BMI] 40.0-44.9, adult; M46.26 Osteomyelitis of vertebra, lumbar region; M46.27 Osteomyelitis of vertebra, lumbosacral region; E11.69 Type 2 diabetes mellitus with other specified complication; E83.39 Other disorders of phosphorus metabolism; Z20.822 Contact with and (suspected) exposure to COVID-19; N14.1 Nephropathy induced by other drugs, medicaments and biological substances; E86.1 Hypovolemia; E87.5 Hyperkalemia; E83.42 Hypomagnesemia; E87.70 Fluid overload, unspecified; E03.9 Hypothyroidism, unspecified; E78.5 Hyperlipidemia, unspecified; I10 Essential (primary) hypertension; D64.9 Anemia, unspecified; E87.6 Hypokalemia; L27.0 Generalized skin eruption due to drugs and medicaments taken internally; T36.8X5A Adverse effect of other systemic antibiotics, initial encounter; G89.29 Other chronic pain; K59.00 Constipation, unspecified; I69.312 Visuospatial deficit and spatial neglect following cerebral infarction; F17.210 Nicotine dependence, cigarettes, uncomplicated; Z79.1 Long term (current) use of non-steroidal anti-inflammatories (NSAID); Z79.899 Other long term (current) drug therapy; Z78.1 Physical restraint status; Z91.19 Patient's noncompliance with other medical treatment and regimen; Z87.39 Personal history of other diseases of the musculoskeletal system and connective tissue; Z87.19 Personal history of other diseases of the digestive system; Z98.1 Arthrodesis status; Z98.890 Other specified postprocedural states; Z71.3 Dietary counseling and surveillance; Z88.1 Allergy status to other antibiotic agents; Z82.49 Family history of ischemic heart disease and other diseases of the circulatory system
CPT/HCPCS: 36415; 36556; 36600; 71045; 76937; 77001; 80048; 80053; 80202; 81001; 82570; 82805; 83036; 83605; 83735; 83880; 84100; 84145; 84156; 84300; 85025; 85652; 86140; 86704; 86706; 87040; 87086; 87205; 87340; 87635; 90935; 93005; 94640; 94660; 96361; 96374; 96375; 99284; 99291

== ENCOUNTER → 2021-01-09 | Day surgery (SDC) | payer BC ==
[2021-01-08 14:56] VITALS: BMI 37.5
[~2021-01-09] MED LIST changes: -ACETAMINOPHEN TAB 500 MG TAB PO PRN; -GABAPENTIN 300 MG CAP PO PRN; -HYDROmorphone 0.5 MG/0.5 ML SYRINGE IVP PRN; -LIDOCAINE 1% (10MG/ML) FOR IV START INTRADERMA PRN; +LIDOCAINE 1% INJ 10MG/ML (20 ML MDV) SQ ONE; -MIDAZOLAM 2 MG/2 ML VIAL IV PRN; -TRANEXAMIC ACID 1,000 MG in SODIUM CHLORIDE 0.9% 100 ML IVPB PRN; -ceFAZolin 3 GM in SODIUM CHLORIDE 0.9% 100 ML IVPB PRN
[2021-01-09 11:43] VITALS: BP 116/117; PULSE 90; RESP 16; TEMP 98.6
[2021-01-09 12:12] LABS: Basophils # (A) 0.1 k/uL (0-0.2); Basophils % (A) 1 %; Eosinophils # (A) 0.5 k/uL (0-0.7); Eosinophils % (A) 5 %; HCT 32.6 % (39.0-53.0); HGB 11.2 gm/dL (13.0-17.5); Lymphocytes # (A) 1.9 k/uL (1.0-4.8); Lymphocytes % (A) 19 %; MCH 29.7 pg (25.0-35.0); MCHC 34.2 g/dL (31.0-37.0); MCV 86.7 fL (80.0-100.0); Mean Platelet Volume 7.4; Monocytes # (A) 0.7 k/uL (0-1.0); Monocytes % (A) 7 %; Neutrophils # (A) 6.6 k/uL (1.3-7.7); Neutrophils % (A) 67 %; Platelet Count 404 k/uL (150-450); RBC 3.76 m/uL (4.30-5.90); RDW 14.4 % (11.5-15.5); WBC 9.9 k/uL (3.8-10.6)
--- NOTE | 2021-01-09 12:28 | IR ---
PICC LINE PLACEMENT: HISTORY: Infection requiring long-term antibiotic therapy PROCEDURE: Ultrasound and fluoroscopic guidance of PICC line placement. COMPLICATIONS: None ANESTHESIA: 1. 1% Lidocaine locally. FINDINGS/TECHNIQUE: The procedure was explained to the patient. The risks, complications, benefits and alternatives were discussed and any questions were answered. Informed consent was obtained. The patient was placed supine on the fluoroscopic table and prepped and draped in the usual sterile fash ion. Utilizing a 21 gauge needle and sonographic and fluoroscopic guidance, access in the left basi lic vein was achieved and there is placement of a 0.018 guidewire. The vein is patent. A 4-F sheath was placed over the guidewire. The guidewire and dilator were removed and a 4-F. PICC line was plac ed through the sheath with the tip at the level of the SVC. The sheath was removed, the catheter was flushed and sutured into position. The patient was stable throughout the procedure and remained sta ble upon discharge from the Department of Radiology. The vein puncture was patent under ultrasound. A mallory scale image was obtained to document patency of the vein punctured. All elements of the maximal barrier technique were utilized. FLUOROSCOPY TIME: 0.1 minutes and one image submitted IMPRESSION: Successful PICC line placement under ultrasound and fluoroscopic guidance.
[2021-01-09 12:34] LABS: Albumin 3.6 g/dL (3.5-5.0); C Reactive Protein 45.3 mg/L (<10.0); Calcium 9.4 mg/dL (8.4-10.2); Potassium 3.9 mmol/L (3.5-5.1); Total Bilirubin 0.3 mg/dL (0.2-1.3); Total Protein 6.2 g/dL (6.3-8.2)
[2021-01-09 14:25] LABS: Erythrocyte Sedimentation Rate 66 mm/hr (0-15)
== END ==
LOC: CATHCVL 11:14
PROVIDERS: ATTEND Radiology Diagnostic Radiology
DX: T81.49XA Infection following a procedure, other surgical site, initial encounter (principal); L02.212 Cutaneous abscess of back [any part, except buttock and flank]; B95.7 Other staphylococcus as the cause of diseases classified elsewhere; Z16.39 Resistance to other specified antimicrobial drug; G89.29 Other chronic pain; I10 Essential (primary) hypertension; F17.200 Nicotine dependence, unspecified, uncomplicated; Z98.890 Other specified postprocedural states; Z87.448 Personal history of other diseases of urinary system; Z87.2 Personal history of diseases of the skin and subcutaneous tissue
CPT/HCPCS: 36573; 80053; 85652; 82553; 85025; 86140; C1751; C1769; J2001

== ENCOUNTER → 2022-04-15 | Outpatient (CLI) | payer BC ==
[2022-04-15 18:08] LABS: HCT 53.8 % (39.6-50.0); HGB 17.5 g/dL (13.0-17.0); MCH 30.1 pg (27.0-32.0); MCHC 32.5 g/dL (32.0-37.0); MCV 92.6 fL (80.0-97.0); NRBC Per 100 WBC 0 /100 WBCS (0.0-0.0); Platelet Count 251 X 10*3/uL (140-440); RBC 5.81 X 10*6/uL (4.40-5.60); RDW 14.7 % (11.5-14.5); WBC 14.88 X 10*3/uL (4.50-10.00)
[2022-04-15 18:48] LABS: African American GFR (CKD) 102.2 (60.0-200.0); Albumin 4.5 g/dL (3.8-4.9); Albumin/Globulin Ratio 2.12 (1.60-3.17); Anion Gap 12.5 mmol/L (10.00-18.00); BUN/Creat Ratio 31.49 Ratio (12.00-20.00); Blood Urea Nitrogen 31.8 mg/dL (9.0-27.0); C Reactive Protein 0.4 mg/dL (0.00-0.80); Calcium 9.8 mg/dL (8.7-10.3); Carbon Dioxide 27.8 mmol/L (20.0-27.5); Globulin 2.1 g/dL (1.6-3.3); Non-African American GFR(CKD) 88.2 (60.0-200.0); Potassium 3.9 mmol/L (3.5-5.5); Total Bilirubin 0.4 mg/dL (0.30-1.20); Total Protein 6.6 g/dL (6.2-8.2)
[2022-04-15 19:22] LABS: Erythrocyte Sedimentation Rate 5 mm/Hr (0-15)
[2022-04-16 13:30] LABS: HLA B27 NEGATIVE
== END | disposition home or self-care (01) ==
LOC: LABWHC1 11:16
PROVIDERS: ATTEND Orthopaedic Surgery
DX: M46.40 Discitis, unspecified, site unspecified (principal)
CPT/HCPCS: 36415; 80053; 82306; 85027; 85652; 86038; 86140; 86812

== ENCOUNTER → 2022-05-06 | Outpatient (CLI) | payer BC ==
--- NOTE | 2022-05-07 05:25 | MR ---
EXAMINATION TYPE: MR lumbar spine wo/w con DATE OF EXAM: 05/06/2022 COMPARISON: 09/22/2021 HISTORY: Low back pain CONTRAST: Standard multiplanar, multisequence MRI departmental protocol images were obtained without contrast a nd with 13 mL intravenous Gadavist gadolinium contrast. There is metal artifact from posterior fusion surgery from L4 through S1. Normal alignment. There is disc space narrowing throughout the lumbar spine and more severe from L1 3 to S1. No evidence of spinal stenosis. There is multilevel laminectomy defect. Contrast images show no definite pathologic enhancement. No compression fracture. No lumbar paraspinal mass. Sacroiliac annika ints are intact. Contrast images show no pathologic enhancement. IMPRESSION: Multilevel fusion surgery. No evidence of spinal stenosis. No fracture. Small posterior disc bulging from L3 to S1. Multilevel disc space narrowing. No significant change compared to old exam.
== END | disposition home or self-care (01) ==
LOC: RADMRIMAIN 13:00
PROVIDERS: ATTEND Orthopaedic Surgery
DX: M54.16 Radiculopathy, lumbar region (principal)
CPT/HCPCS: 72158; A9585

== ENCOUNTER → 2022-08-27 | Outpatient (CLI) | payer BC ==
--- NOTE | 2022-08-27 09:54 | US ---
EXAMINATION TYPE: US abdomen complete DATE OF EXAM: 08/27/2022 COMPARISON: NONE CLINICAL HISTORY: R10.10 UPPER ABDOMINAL PAIN,R10.30 LOW ABN PAIN,R1. TECHNIQUE: Multiple sonographic images of the abdomen are obtained. 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 Pancreas: Obscured by bowel gas Liver: Increased attenuation, decreased visualization of vessels suggestive of fatty infiltrate, upp er limits of normal in size, limited visualization Gallbladder: wnl as seen Evidence for sonographic Trevino's sign: no CBD: limited visualization appears wnl Spleen: wnl Right Kidney: wnl Left Kidney: inferolateral cyst measuring 2.0 x 2.2 x 2.1cm Upper IVC: wnl Abd Aorta: only mid portions seen, no abnormality IMPRESSION: 1. Mild fatty infiltration liver and mild hepatomegaly. 2. Inferior pole left renal cyst
== END | disposition home or self-care (01) ==
LOC: RADUSWWP 07:24
PROVIDERS: ATTEND Family Medicine
DX: K76.0 Fatty (change of) liver, not elsewhere classified (principal); N28.1 Cyst of kidney, acquired; R16.0 Hepatomegaly, not elsewhere classified
CPT/HCPCS: 76700

== ENCOUNTER → 2023-01-21 | Outpatient (CLI) | payer MEDICARE ==
--- NOTE | 2023-01-21 12:08 | XR ---
EXAMINATION TYPE: XR chest 2V DATE OF EXAM: 01/21/2023 COMPARISON: 12/16/2020 INDICATION: Short of breath TECHNIQUE: Single frontal view of the chest is obtained. FINDINGS: The heart size is normal. The pulmonary vasculature is normal. The lungs are clear. IMPRESSION: 1. No acute pulmonary process.
== END | disposition home or self-care (01) ==
LOC: RADXRYALE 11:47
PROVIDERS: ATTEND Physician Assistant
DX: R06.02 Shortness of breath (principal)
CPT/HCPCS: 71046

== ENCOUNTER → 2023-11-04 | Outpatient (CLI) | payer MEDICARE ==
--- NOTE | 2023-11-04 15:12 | XR ---
EXAMINATION TYPE: XR elbow complete RT DATE OF EXAM: 11/04/2023 COMPARISON: NONE HISTORY: Pain post fall FINDINGS: Three views of the elbow demonstrate findings suggestive of a subtle posterior fat pad sign and small joint effusion. No definite acute fracture identified. There is a small olecranon spur. IMPRESSION: 1. Findings are suggestive of posterior fat pad sign and small joint effusion. This can be seen with a small joint effusion or occult fracture. Correlate with CT scan as clinically warranted. A Yellow level critical message alert has been initiated for SAMANTA Renee via the [employer] Critical Results System on 11/04/2023 3:10 PM. This message alert has been sent to SAMANTA Renee via the preferences provided by the clinician for the receipt of Radiology Critical Fin dinggena. Message ID [id number].
== END | disposition home or self-care (01) ==
LOC: RADXRYALE 14:38
PROVIDERS: ATTEND Physician Assistant Medical
DX: M25.421 Effusion, right elbow (principal); M25.521 Pain in right elbow; W01.0XXA Fall on same level from slipping, tripping and stumbling without subsequent striking against object, initial encounter

== ENCOUNTER → 2023-11-17 | Outpatient (CLI) | payer MEDICARE ==
--- NOTE | 2023-11-17 11:20 | CT ---
EXAMINATION TYPE: CT elbow RT wo con CT DLP: 191 mGycm, Automated exposure control for dose reduction was used. DATE OF EXAM: 11/17/2023 11:08 AM COMPARISON: Right elbow radiograph 11/04/2023 CLINICAL INDICATION:Male, 48 years old with history of right elbow; [id number]; [facility], TECHNIQUE: Axial images were obtained of the right elbow without the use of IV contrast. Additional coronal and sagittal reformatted images and soft tissue and bone window were obtained for review. 3-D reconstruction was created on a separate workstation. FINDINGS: There is no evidence of fracture, subluxation, or dislocation. Posterior elbow fat strandin g and edema identified. No joint effusion. Tiny olecranon spur identified. No focal muscular atrophy is identified. No radiopaque foreign body identified. IMPRESSION: 1. No acute fracture or dislocation. 2. Posterior elbow prominent soft tissue contusion.
== END | disposition home or self-care (01) ==
LOC: RADCTMAIN 10:34
PROVIDERS: ATTEND Family Medicine
DX: M79.89 Other specified soft tissue disorders (principal); L03.113 Cellulitis of right upper limb; W01.0XXA Fall on same level from slipping, tripping and stumbling without subsequent striking against object, initial encounter

== ENCOUNTER → 2023-11-18 | Outpatient (CLI) | payer MEDICARE ==
--- NOTE | 2023-11-18 11:01 | XR ---
EXAMINATION TYPE: XR humerus RT, XR elbow limited RT DATE OF EXAM: 11/18/2023 9:48 AM CLINICAL INDICATION:Male, 48 years old with history of [id number] PAIN HUM,PAIN ELBOW; COMPARISON: 11/04/2023. TECHNIQUE: XR humerus RT, XR elbow limited RT examined in frontal and lateral projections. Additional oblique view of the elbow was performed. FINDINGS: No evidence of acute osseous pathology, joint dislocation, or soft tissue swelling. The rem aining portions of the visualized chest are unremarkable. IMPRESSION: No acute osseous pathology.
== END | disposition home or self-care (01) ==
LOC: RADXRYALE 09:21
PROVIDERS: ATTEND Physician Assistant
DX: M79.621 Pain in right upper arm (principal); M25.521 Pain in right elbow